=== PATIENT | female | born 1990 | race Caucasian/White ===

== ENCOUNTER 2016-12-08 23:25 | Emergency (ER) | payer OTHER, SELFPAY ==
[2016-12-08] MEDS ORDERED: CLEOCIN 150 MG CAPSULE PO ONE (23:50)
[2016-12-08] MEDS ORDERED: TORAdol 30 mg Injection IM ONE (23:50)
[2016-12-08] MEDS ORDERED: TORAdol 30 mg Injection ONE (23:56)
[2016-12-08] MEDS ORDERED: CLEOCIN 150 MG CAPSULE ONE (23:56)
--- NOTE | 2016-12-08 23:57 | ERPHSYRPT ---
- History of Present Illness Time Seen by Provider: 12/08/16 23:40 Source: patient Exam Limitations: no limitations Patient Subjective Stated Complaint: pt states she has dental pain on the lt lower jaw. states she left a msg for dentist. Triage Nursing Assessment: pt alert and oriented. answers questins approp. speech slurred. pt anxious and jittery with constant head and neck movements. respirations nonlabored with lungs cta. no swelling noted to lt jaw. broken molar noted to lt lower. Physician History: SINCE YESTERDAY PT HAS HAD A LEFT LOWER TOOTHACHE WITH SOME SHORTNESS OF AIR AND SWELLING IN THE THROAT TONIGHT;DENIES FEVER,CHEST PAIN, VOMITING. Allergies/Adverse Reactions: Penicillins Adverse Reaction (Mild, Verified 12/08/16 23:48) pt states she is not had problems with antibitics related to pcn as an adult Home Medications: Butalb/Acetaminophen/Caffeine [Kkmgpw-Giafqssc-Shhl 50-325-40] 1 each PO Q6HPRN PRN 12/08/16 [History] Omeprazole [Prilosec] 40 mg PO DAILY 12/08/16 [History] Hx Tetanus, Diphtheria Vaccination/Date Given: Yes Hx Influenza Vaccination/Date Given: No Hx Pneumococcal Vaccination/Date Given: No Immunizations Up to Date: Yes - Review of Systems Constitutional: No Fever Ears, Nose, & Throat: Throat Swelling, Other (TOOTHACHE) Respiratory: Dyspnea Cardiac: No Chest Pain Abdominal/Gastrointestinal: No Abdominal Pain, No Vomiting All Other Systems: Reviewed and Negative - Past Medical History Pertinent Past Medical History: Yes Neurological History: No Pertinent History ENT History: No Pertinent History Cardiac History: No Pertinent History Respiratory History: No Pertinent History Endocrine Medical History: No Pertinent History Musculoskeletal History: No Pertinent History GI Medical History: GERD, Gallbladder Disease, Other History: Other Psycho-Social History: Anxiety, Depression, Panic Disorder Female Reproductive Disorders: Endometriosis Other Medical History: abn pap smear, endometriosis r/o with laparoscopy , PID. being seen for chronic pelvic pain and to see gi drTess pt states she has had 3 head injuries and has appt to see a neurologist - Past Surgical History Past Surgical History: Yes Neuro Surgical History: No Pertinent History Cardiac: No Pertinent History Respiratory: No Pertinent History Gastrointestinal: Appendectomy, Cholecystectomy Genitourinary: No Pertinent History Musculoskeletal: No Pertinent History Female Surgical History: No Pertinent History Other Surgical History: exploratory laparoscopy per Dr Hidalgo 2015- negative - Social History Smoking Status: Current every day smoker How long have you smoked: 10 Exposure to second hand smoke: Yes Alcohol Use: Socially Drug Use: none Patient Lives Alone: No Significant Family History: no pertinent family hx - Female History Hx Last Menstrual Period: 3 weeks ago Hx Now: No - Nursing Vital Signs Nursing Vital Signs: Initial Vital Signs Temperature 97.7 F Temperature Source Oral Pulse Rate 109 Respiratory Rate 18 Blood Pressure 129/85 Pain Intensity 9 - Physical Exam General Appearance: alert, other (SLURRED SPEECH) Eye Exam: PERRL/EOMI Ears, Nose, Throat Exam: TMs normal, pharynx normal, moist mucous membranes, other (A CHIPPED LEFT MANDIBULAR MOLAR HAS MILDLY EDEMATOUS, TENDER AND ERYTHEMATOUS SURROUNDING GUM; NO PHARYNGEAL EDEMA AND NO HOARSENESS.) Neck Exam: normal inspection Respiratory Exam: normal breath sounds, lungs clear Cardiovascular Exam: normal heart sounds Gastrointestinal/Abdomen Exam: soft, normal bowel sounds Back Exam: normal range of motion Extremity Exam: normal inspection, No pedal edema Neurologic Exam: alert, cooperative Skin Exam: warm, dry SpO2 Interpretation: normal SpO2: 98 Oxygen Delivery: Room Air - Course Nursing assessment & vital signs reviewed: Yes Ordered Tests: Medication Summary Discontinued Medications Generic Name Dose Route Start Last Admin Trade Name Freq PRN Reason Stop Dose Admin Clindamycin HCl 300 mg 12/08/16 23:50 Cleocin 150 Mg Capsule PO 12/08/16 23:51 STAT ONE Ketorolac Tromethamine 60 mg 12/08/16 23:50 Toradol 30 Mg Injection IM 12/08/16 23:51 STAT ONE - Departure Time of Disposition: 00:01 Departure Disposition: Home Clinical Impression: LEFT MANDIBULAR MOLAR ABSCESS Condition: Fair Critical Care Time: No Instructions: Tooth Abscess Additional Instructions: FOLLOW UP WITH PRIVATE DENTIST TOMORROW. Prescriptions: Naproxen [Naprosyn] 500 mg PO Q12H PRN PRN #20 tablet PRN Reason: Pain Clindamycin HCl 300 mg PO Q6H #40 capsule
[2016-12-09 00:17] VITALS: BP 136/78; PULSE 105; O2SAT 97
== END 2016-12-09 00:25 | disposition home or self-care (01) ==
LOC: ED 23:25
DX: M27.2 Inflammatory conditions of jaws (principal)
CPT/HCPCS: 96372; 99283; J1885

== ENCOUNTER 2017-02-10 17:45 | Emergency (ER) | payer OTHER, SELFPAY ==
[2017-02-10] MEDS ORDERED: Sodium Chloride 0.9% 1000 ML 1,000 ML IV STA (18:12)
--- NOTE | 2017-02-10 18:16 | ERPHSYRPT ---
- History of Present Illness Source: patient Exam Limitations: no limitations Patient Subjective Stated Complaint: PT REPORTS FEVER OF 103.4 AT HOME-REPORTS VOMITING INTERMITTANT IN NATURE-DENEIS COUGH-DENIES CONGESTION OR SORE THROAT- DENIES DIFFICULTY WITH URINATION-DENIES PAIN Triage Nursing Assessment: PT PINK WARM ET DRY-A & O X 3-RESP EASY ET NONLAOBRED -ABD SOFT ET NONTENDER TO PALP Timing/Duration: day(s) (3-4 days) Severity: moderate Modifying Factors: Improves With: nothing Associated Symptoms: nausea, vomiting, fever, headaches, No abdominal pain, No shortness of breath, No heartburn, No diaphoresis, No cough, No chills, No chest pain, No loss of appetite, No malaise, No rash, No syncope, No seizure, No weakness Hx Tetanus, Diphtheria Vaccination/Date Given: Yes Hx Influenza Vaccination/Date Given: No Hx Pneumococcal Vaccination/Date Given: No Immunizations Up to Date: Yes <CHRISTOPHER DUENAS - Last Filed: 02/10/17 19:18> <MARTHA JAIN - Last Filed: 02/10/17 20:13> - History of Present Illness Time Seen by Provider: 02/10/17 18:09 Physician History: 26-year-old white female arrives with complaint of fever off and on nausea vomiting symptoms going on for 3-4 days she denies cough sore throats or abdominal pain she denies dysuria hematuria. Past medical history includes GERD, gallbladder disease, anxiety, depression, panic disorder, endometriosis, pelvic inflammatory disease, chronic pelvic pain. Past surgical history includes cholecystectomy exploratory laparotomy and appendectomy. (CHRISTOPHER DUENAS) Allergies/Adverse Reactions: Penicillins Adverse Reaction (Mild, Verified 02/10/17 17:53) pt states she is not had problems with antibitics related to pcn as an adult Home Medications: No Home Meds 1 ea MC UD 02/10/17 [History] - Review of Systems Constitutional: Fever, No Chills, No Fatigue, No Lethargy, No Malaise, No Night Sweats, No Weakness, No Weight Loss, No Other Eyes: No Symptoms, No Discharge, No Eye Pain, No Eye Redness, No Itchy, No Photophobia, No Tearing, No Vision Changes, No Double Vision, No Foreign Body Sensation Ears, Nose, & Throat: No Symptoms, No Ear Pain, No Ear Discharge, No Hearing Changes, No Tinnitus, No Nose Pain, No Nose Congestion, No Nose Discharge, No Sinus Drainage, No Epistaxis, No Mouth Pain, No Mouth Swelling, No Loose Teeth, No Throat Pain, No Throat Swelling, No Hoarse, No Painful Swallowing, No Snoring , No Stridor Respiratory: No Cough, No Dyspnea Cardiac: No Chest Pain, No Edema, No Syncope Abdominal/Gastrointestinal: Nausea, Vomiting, No Abdominal Pain, No Diarrhea, No Constipation, No Hematemesis, No Hematochezia, No Melena, No Dysphagia, No Appetite Changes Genitourinary Symptoms: No Dysuria Musculoskeletal: No Back Pain, No Neck Pain Skin: No Rash Neurological: No Dizziness, No Focal Weakness, No Sensory Changes Psychological: No Symptoms Endocrine: No Symptoms All Other Systems: Reviewed and Negative <CHRISTOPHER DUENAS - Last Filed: 02/10/17 19:18> - Past Medical History Pertinent Past Medical History: Yes Neurological History: No Pertinent History ENT History: No Pertinent History Cardiac History: No Pertinent History Respiratory History: No Pertinent History Endocrine Medical History: No Pertinent History Musculoskeletal History: No Pertinent History GI Medical History: GERD, Gallbladder Disease, Other History: Other Psycho-Social History: Anxiety, Depression, Panic Disorder Female Reproductive Disorders: Endometriosis Other Medical History: abn pap smear, endometriosis r/o with laparoscopy , PID. being seen for chronic pelvic pain and to see gi pt states she has had 3 head injuries and has appt to see a neurologist - Past Surgical History Past Surgical History: Yes Neuro Surgical History: No Pertinent History Cardiac: No Pertinent History Respiratory: No Pertinent History Gastrointestinal: Appendectomy, Cholecystectomy Genitourinary: No Pertinent History Musculoskeletal: No Pertinent History Female Surgical History: No Pertinent History Other Surgical History: exploratory laparoscopy per Dr Hidalgo 2014- negative - Social History Smoking Status: Current every day smoker How long have you smoked: 10 Exposure to second hand smoke: Yes Alcohol Use: Socially Drug Use: none Patient Lives Alone: No Significant Family History: no pertinent family hx - Female History Hx Last Menstrual Period: 2 WKS AGO Hx Now: No <CHRISTOPHER DUENAS - Last Filed: 02/10/17 19:18> - Physical Exam General Appearance: no apparent distress, alert, other (patient somewhat flushed in appearance) Eye Exam: PERRL/EOMI, eyes nml inspection Ears, Nose, Throat Exam: normal ENT inspection, TMs normal, pharynx normal, moist mucous membranes Neck Exam: normal inspection, non-tender, supple, full range of motion Respiratory Exam: normal breath sounds, lungs clear, No respiratory distress Cardiovascular Exam: regular rate/rhythm, normal heart sounds, normal peripheral pulses Gastrointestinal/Abdomen Exam: soft, normal bowel sounds, No tenderness, No mass Back Exam: normal inspection, normal range of motion, No CVA tenderness, No vertebral tenderness Extremity Exam: normal inspection, normal range of motion, pelvis stable Neurologic Exam: alert, oriented x 3, cooperative, normal mood/affect, nml cerebellar function, nml station & gait, sensation nml, No motor deficits Skin Exam: normal color, warm, dry, No rash Lymphatic Exam: No adenopathy SpO2 Interpretation: normal (100%) SpO2: 100 Oxygen Delivery: Room Air <CHRISTOPHER DUENAS - Last Filed: 02/10/17 19:18> - Progress Progress: improved <CHRISTOPHER DUENAS - Last Filed: 02/10/17 19:18> - Progress Progress: improved Counseled pt/family regarding: lab results, diagnosis <MARTHA JAIN - Last Filed: 02/10/17 20:13> - Progress Progress Note: 02/10/17 19:17 Dr. Jain will assume care of this patient secondary to shift change. Case has been discussed with Dr. Jain (CHRISTOPHER DUENAS) 02/10/17 19:31 Pt care discussed with Dr Almodovar and care accepted at 19:00. 02/10/17 20:10 Pt is feeling much better and wishes to go home. (MARTHA JAIN) <CHRISTOPHER DUENAS - Last Filed: 02/10/17 19:18> - Departure Time of Disposition: 20:10 Departure Disposition: Home Critical Care Time: No <MARTHA JAIN - Last Filed: 02/10/17 20:13> - Departure Clinical Impression: Vomiting, Dehydration Condition: Stable Referrals: DOCTOR,NO FAMILY [Primary Care Provider] - Additional Instructions: You had vomiting and dehydration. Take zofran 4 mg ODT every 6 hrs as needed. Start your diet with clear liquids and advance as tolerated. Follow up as needed. Prescriptions: Ondansetron [Zofran Odt] 4 mg PO Q6HPRN PRN #10 tab.rapdis PRN Reason: Nausea/Vomiting
[2017-02-10] MEDS ORDERED: Sodium Chloride 0.9% 1000 ML 1,000 ML ONE (18:18)
[2017-02-10] MEDS ORDERED: Zofran 4 MG/2 ML VIAL IV ONE (18:23)
[2017-02-10] MEDS ORDERED: Zofran 4 MG/2 ML VIAL ONE (18:24)
[2017-02-10 18:43] LABS: Collection Type CLEAN CATCH; Ph 5.5 (5-6)
[2017-02-10 18:44] LABS: Bacteria FEW /HPF (NEGATIVE); COMPLETE URINE MICROSCOPIC? YES; Epithelial Cells MODERATE /HPF (FEW); Mucus MODERATE /HPF (NEGATIVE)
[2017-02-10 19:08] LABS: BASOPHIL % 0.2 % (0.0-0.4); Eosinophil % 0.2 % (0.00-5.0); Granulocytes % 68.2 % (36.0-66.0); Lymphocytes % 25.2 % (24.0-44.0); Mean Cell Volume 97.4 fl (78-100); Mean Platelet Volume 10.7 fl (6-9.5); Monocytes % 6.2 % (0.0-12.0); Platelet Count 274 K/mm3 (150-450); Red Blood Count 3.52 M/mm3 (4.1-5.4); Red Cell Distribution Width 14.7 % (11.5-14.0)
[2017-02-10 19:30] LABS: Mean Corpuscular Hemoglobin 32.3 pg (26-32)
[2017-02-10 19:33] LABS: ALBUMIN 3.7 g/dL (3.4-5.0); ALKALINE PHOSPHATASE 60 U/L (46-116); ANION GAP 17.3 MEQ/L (5-15); BILIRUBIN,TOTAL 0.2 mg/dL (0.2-1.0); BLOOD UREA NITROGEN 9 mg/dL (9-20); CHLORIDE 109 mEq/L (98-107); Carbon Dioxide 21.2 mEq/L (21-32); Glucose 100 MG/DL (70-110); Potassium 3.3 mEq/L (3.5-5.1); SGOT/AST 22 U/L (15-37); SGPT/ALT 19 U/L (12-78); SODIUM 144 mEq/L (136-145); Total Protein 7.3 gm/dL (6.4-8.2)
[2017-02-10] MEDS ORDERED: Klor Con 10 MEQ PO ONE ×2 (19:53→19:58)
[2017-02-10 20:21] VITALS: BP 136/76; PULSE 84; O2SAT 96
== END 2017-02-10 20:21 | disposition home or self-care (01) ==
LOC: ED 17:45
DX: R11.10 Vomiting, unspecified (principal); E86.0 Dehydration; R50.9 Fever, unspecified
CPT/HCPCS: 36000; 36415; 80053; 81000; 84703; 85025; 87070; 87430; 96360; 96374; 99284; J2405; A9270-GY

== ENCOUNTER 2017-03-26 11:07 | Emergency (ER) | payer OTHER, SELFPAY ==
--- NOTE | 2017-03-26 11:48 | ERPHSYRPT ---
- History of Present Illness Time Seen by Provider: 03/26/17 11:44 Historian: patient Exam Limitations: no limitations Patient Subjective Stated Complaint: Pt states for the last 4 days she has been extremely bloated and has a knot/pain in her right groin. She states it is not getting any better and she has not been urinating as much as normal. Pt states she gets nauseous after eating. Triage Nursing Assessment: Pt alert and oriented x3. skin pink warm and dry. afebrile. bowel sounds hypoactive x4. abdomen soft and bloated. pain with palpation in the right groin Physician History: Pt. with periumbilical abdominal pain for past 4 days. States pain stabbing, constant, non-radiating similar to previous. States LMP 1 week ago. Denies any vaginal bleeding or discharge. Lying in hot bath improves pain, standing worsens pain. 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 States also with abdominal bloating and nausea, but no vomiting or diarrhea. Denies frequency, dysuria, hesitancy, fever or chills. Timing/Duration: day(s) (4), constant, gradual onset Activities at Onset: none Quality: sharpness, stabbing Abdominal Pain Onset Location: RLQ Pain Radiation: no radiation Severity of Pain-Max: moderate Severity of Pain-Current: moderate Modifying Factors: Improves With: analgesics (Motrin/Tylenol), lying down ( improves). Worsens With: vomiting Associated Symptoms: loss of appetite, nausea, No chest pain, No diaphoresis, No fever/chills, No vomiting, No weakness Previous symptoms: same symptoms as today Allergies/Adverse Reactions: Penicillins Adverse Reaction (Mild, Verified 03/26/17 11:15) pt states she is not had problems with antibitics related to pcn as an adult Home Medications: Acetaminophen 325 mg [Tylenol 325 mg] 325 mg PO Q4-6HPRN PRN 03/26/17 [ History] Ibuprofen 200 mg [Motrin 200 mg] 800 mg PO Q4-6HPRN PRN 03/26/17 [History] Hx Tetanus, Diphtheria Vaccination/Date Given: (unknown) Hx Influenza Vaccination/Date Given: No Hx Pneumococcal Vaccination/Date Given: No - Review of Systems Constitutional: No Fever, No Chills Eyes: No Symptoms Ears, Nose, & Throat: No Symptoms Respiratory: No Cough, No Dyspnea Cardiac: No Chest Pain, No Edema, No Syncope Abdominal/Gastrointestinal: Abdominal Pain, Nausea, No Vomiting, No Diarrhea Genitourinary Symptoms: No Dysuria, No Frequency, No Vaginal Bleeding, No Vaginal Discharge Musculoskeletal: No Back Pain, No Neck Pain Skin: No Rash Neurological: No Dizziness, No Focal Weakness, No Sensory Changes Psychological: No Symptoms Endocrine: No Symptoms All Other Systems: Reviewed and Negative - Past Medical History Pertinent Past Medical History: Yes Neurological History: No Pertinent History ENT History: No Pertinent History Cardiac History: No Pertinent History Respiratory History: No Pertinent History Endocrine Medical History: No Pertinent History Musculoskeletal History: No Pertinent History GI Medical History: GERD, Gallbladder Disease, Other History: Other (Endometriosis) Psycho-Social History: Anxiety, Depression, Panic Disorder Female Reproductive Disorders: Endometriosis Other Medical History: abn pap smear, endometriosis r/o with laparoscopy , PID. being seen for chronic pelvic pain and to see gi pt states she has had 3 head injuries and has appt to see a neurologist - Past Surgical History Past Surgical History: Yes Neuro Surgical History: No Pertinent History Cardiac: No Pertinent History Respiratory: No Pertinent History Gastrointestinal: Appendectomy, Cholecystectomy Genitourinary: No Pertinent History Musculoskeletal: No Pertinent History Female Surgical History: No Pertinent History Other Surgical History: exploratory laparoscopy per Dr Hidalgo 2014- negative - Social History Smoking Status: Current every day smoker How long have you smoked: 10 Exposure to second hand smoke: Yes Alcohol Use: Socially Drug Use: none Patient Lives Alone: No Significant Family History: no pertinent family hx - Female History Hx Last Menstrual Period: 03/19/2017 Hx Now: No - Nursing Vital Signs Nursing Vital Signs: Initial Vital Signs Temperature 97.8 F Temperature Source Oral Pulse Rate 78 Respiratory Rate 18 Blood Pressure [Right Arm] 118/60 Pain Intensity 5 - Physical Exam General Appearance: no apparent distress, alert Eye Exam: PERRL/EOMI, eyes nml inspection Ears, Nose, Throat Exam: normal ENT inspection, pharynx normal, moist mucous membranes Neck Exam: normal inspection, non-tender, supple, full range of motion Respiratory Exam: normal breath sounds, lungs clear, No respiratory distress Cardiovascular Exam: regular rate/rhythm, normal heart sounds Gastrointestinal/Abdomen Exam: soft, tenderness (RLQ), distention, No mass, No ecchymosis, No pulsatile mass, No rebound Rectal Exam: deferred Back Exam: normal inspection, normal range of motion, No CVA tenderness, No vertebral tenderness Extremity Exam: normal inspection, normal range of motion, pelvis stable Neurologic Exam: alert, oriented x 3, cooperative, normal mood/affect, nml cerebellar function, sensation nml, No motor deficits Skin Exam: normal color, warm, dry - Radiology Ultrasound Exam Pelvis Ultrasound: tele radiology report, negative, No Mass, Other (No ovarian cysts or any other abnormalities seen) Ordered Tests: Active Orders 24 hr Category Date Time Status IV Insertion STAT Care 03/26/17 11:54 Active PELVIC [US] Stat Exams 03/26/17 12:27 Completed AMYLASE Stat Lab 03/26/17 12:36 Completed CBC W DIFF Stat Lab 03/26/17 12:25 Completed CMP Stat Lab 03/26/17 12:36 Completed HCG,QUALITATIVE URINE Stat Lab 03/26/17 12:12 Completed UA Stat Lab 03/26/17 12:36 Completed Urine Triage Profile Stat Lab 03/26/17 12:36 Completed Wet Prep Stat Lab 03/26/17 12:36 Completed Medication Summary Discontinued Medications Generic Name Dose Route Start Last Admin Trade Name Freq PRN Reason Stop Dose Admin Ketorolac Tromethamine 30 mg 03/26/17 11:54 03/26/17 12:32 Toradol 30 Mg Injection IV 03/26/17 11:55 30 mg STAT ONE Administration Ketorolac Tromethamine Confirm 03/26/17 12:31 Toradol 30 Mg Injection Administered 03/26/17 12:32 Dose 30 mg .ROUTE .STK-MED ONE Promethazine HCl 12.5 mg 03/26/17 11:54 03/26/17 12:32 Phenergan 25 Mg Inj IV 03/26/17 11:55 12.5 mg STAT ONE Administration Promethazine HCl Confirm 03/26/17 12:31 Phenergan 25 Mg Inj Administered 03/26/17 12:32 Dose 25 mg .ROUTE .STK-MED ONE Lab/Rad Data: Laboratory Result Diagrams 03/26/17 12:25 03/26/17 12:36 Laboratory Results 03/26/17 03/26/17 03/26/17 Range/Units 12:36 12:36 12:36 WBC (4.0-10.5) K/mm3 RBC (4.1-5.4) M/mm3 Hgb (12.0-16.0) gm/dl Hct (35-47) % MCV (78-100) fl MCH (26-32) pg MCHC (32-36) g/dl RDW (11.5-14.0) % Plt Count (150-450) K/mm3 MPV (6-9.5) fl Gran % (36.0-66.0) % Lymphocytes % (24.0-44.0) % Monocytes % (0.0-12.0) % Eosinophils % (0.00-5.0) % Basophils % (0.0-0.4) % Basophils # (0-0.4) Sodium 139 (136-145) mEq/L Potassium 3.8 (3.5-5.1) mEq/L Chloride 104 (98-107) mEq/L Carbon Dioxide 21.1 (21-32) mEq/L Anion Gap 17.8 H (5-15) MEQ/L BUN 11 (9-20) mg/dL Creatinine 0.68 (0.55-1.30) mg/dl Estimated GFR > 60 ML/MIN Glucose 96 (70-110) MG/DL Calcium 9.0 (8.5-10.1) mg/dL Total Bilirubin 0.2 (0.2-1.0) mg/dL AST 20 (15-37) U/L ALT 18 (12-78) U/L Alkaline Phosphatase 73 (46-116) U/L Serum Total Protein 7.8 (6.4-8.2) gm/dL Albumin 3.9 (3.4-5.0) g/dL Amylase 72 (25-115) U/L Ur Collection Type CLEAN CATCH Urine Color YELLOW (YELLOW) Urine Appearance CLEAR (CLEAR) Urine pH 6.0 (5-6) Ur Specific [place] 1.020 (1.005-1.025) Urine Protein NEGATIVE (Negative) Urine Glucose (UA) NEGATIVE (NEGATIVE) mg/dL Urine Ketones NEGATIVE (NEGATIVE) Urine Nitrite NEGATIVE (NEGATIVE) Urine Bilirubin NEGATIVE (NEGATIVE) Urine Urobilinogen 0.2 (0-1) mg/dL Urine WBC (Auto) NEGATIVE (NEGATIVE) Urine RBC (Auto) NEGATIVE (0-5) [place]/ul Urine HCG, Qual (Negative) WBC (Wet Prep) Few RBC (Wet Prep) Few Epi Cells (Wet Prep) Moderate Bacteria (Wet Prep) Moderate Clue Cells (Wet Prep) Rare Trichomonas (Wet Prep) None Seen Budding Yeast (Wet Prp) None Seen Urine Opiates Level NEG. (NEGATIVE) Ur Methadone NEG. (NEGATIVE) Urine Barbiturates NEG. (NEGATIVE) Ur Phencyclidine (PCP) NEG. (NEGATIVE) Urine Amphetamine NEG. (NEGATIVE) U Benzodiazepine Level POS. (NEGATIVE) Urine Cocaine NEG. (NEGATIVE) Urine Marijuana (THC) NEG. (NEGATIVE) Specimen Received [id number] 03/26/17 03/26/17 Range/Units 12:25 12:12 WBC 7.1 (4.0-10.5) K/mm3 RBC 3.84 L (4.1-5.4) M/mm3 Hgb 12.5 (12.0-16.0) gm/dl Hct 38.3 (35-47) % MCV 99.7 (78-100) fl MCH 32.5 H (26-32) pg MCHC 32.6 (32-36) g/dl RDW 14.5 H (11.5-14.0) % Plt Count 210 (150-450) K/mm3 MPV 11.2 H (6-9.5) fl Gran % 47.5 (36.0-66.0) % Lymphocytes % 43.6 (24.0-44.0) % Monocytes % 7.8 (0.0-12.0) % Eosinophils % 0.7 (0.00-5.0) % Basophils % 0.4 (0.0-0.4) % Basophils # 0.03 (0-0.4) Sodium (136-145) mEq/L Potassium (3.5-5.1) mEq/L Chloride (98-107) mEq/L Carbon Dioxide (21-32) mEq/L Anion Gap (5-15) MEQ/L BUN (9-20) mg/dL Creatinine (0.55-1.30) mg/dl Estimated GFR ML/MIN Glucose (70-110) MG/DL Calcium (8.5-10.1) mg/dL Total Bilirubin (0.2-1.0) mg/dL AST (15-37) U/L ALT (12-78) U/L Alkaline Phosphatase (46-116) U/L Serum Total Protein (6.4-8.2) gm/dL Albumin (3.4-5.0) g/dL Amylase (25-115) U/L Ur Collection Type Urine Color (YELLOW) Urine Appearance (CLEAR) Urine pH (5-6) Ur Specific [place] (1.005-1.025) Urine Protein (Negative) Urine Glucose (UA) (NEGATIVE) mg/dL Urine Ketones (NEGATIVE) Urine Nitrite (NEGATIVE) Urine Bilirubin (NEGATIVE) Urine Urobilinogen (0-1) mg/dL Urine WBC (Auto) (NEGATIVE) Urine RBC (Auto) (0-5) [place]/ul Urine HCG, Qual NEGATIVE (Negative) WBC (Wet Prep) RBC (Wet Prep) Epi Cells (Wet Prep) Bacteria (Wet Prep) Clue Cells (Wet Prep) Trichomonas (Wet Prep) Budding Yeast (Wet Prp) Urine Opiates Level (NEGATIVE) Ur Methadone (NEGATIVE) Urine Barbiturates (NEGATIVE) Ur Phencyclidine (PCP) (NEGATIVE) Urine Amphetamine (NEGATIVE) U Benzodiazepine Level (NEGATIVE) Urine Cocaine (NEGATIVE) Urine Marijuana (THC) (NEGATIVE) Specimen Received - Progress Progress: improved Progress Note: 03/26/17 13:52 patient given Toradol and antiemetic. She does appear to be feeling better. Counseled pt/family regarding: lab results, diagnosis, rad results - Departure Time of Disposition: 13:52 Departure Disposition: Home, Extended Care Facility Clinical Impression: Abdominal pain Condition: Stable Critical Care Time: No Instructions: Abdominal Pain-Adult Additional Instructions: Motrin 800mg every 8 hrs with food for pain Return for worse abdominal pain,fever, vomiting, dizziness or any problems
[2017-03-26] MEDS ORDERED: Phenergan 25 MG INJ IV ONE (11:54)
[2017-03-26] MEDS ORDERED: TORAdol 30 mg Injection IV ONE (11:54)
[2017-03-26 12:25] LABS: BASOPHIL % 0.4 % (0.0-0.4); Eosinophil % 0.7 % (0.00-5.0); Granulocytes % 47.5 % (36.0-66.0); Lymphocytes % 43.6 % (24.0-44.0); Mean Cell Volume 99.7 fl (78-100); Mean Platelet Volume 11.2 fl (6-9.5); Monocytes % 7.8 % (0.0-12.0); Platelet Count 210 K/mm3 (150-450); Red Blood Count 3.84 M/mm3 (4.1-5.4); Red Cell Distribution Width 14.5 % (11.5-14.0); White Blood Count 7.1 K/mm3 (4.0-10.5)
[2017-03-26 12:27] LABS: Mean Corpuscular Hemoglobin 32.5 pg (26-32)
[2017-03-26] MEDS ORDERED: TORAdol 30 mg Injection ONE (12:31)
[2017-03-26] MEDS ORDERED: Phenergan 25 MG INJ ONE (12:31)
[2017-03-26 12:38] LABS: COMPLETE URINE MICROSCOPIC? NO; Collection Type CLEAN CATCH
[2017-03-26 12:46] LABS: ALBUMIN 3.9 g/dL (3.4-5.0); ALKALINE PHOSPHATASE 73 U/L (46-116); ANION GAP 17.8 MEQ/L (5-15); BILIRUBIN,TOTAL 0.2 mg/dL (0.2-1.0); BLOOD UREA NITROGEN 11 mg/dL (9-20); CHLORIDE 104 mEq/L (98-107); Carbon Dioxide 21.1 mEq/L (21-32); Glucose 96 MG/DL (70-110); Potassium 3.8 mEq/L (3.5-5.1); SGOT/AST 20 U/L (15-37); SGPT/ALT 18 U/L (12-78); SODIUM 139 mEq/L (136-145); Total Protein 7.8 gm/dL (6.4-8.2)
[2017-03-26 12:47] LABS: Bacteria Moderate; Clue Cells Rare
[2017-03-26 12:48] LABS: Trichomonas None Seen
[2017-03-26 12:49] LABS: Yeast None Seen
[2017-03-26 12:57] VITALS: O2SAT 100
--- NOTE | 2017-03-26 13:20 | XRAY ---
Indication: Pain. Two-dimensional transabdominal pelvic sonogram was performed. Comparison: May 16, 2015. Uterus again anteverted today measuring 6.7 x 2.3 x 3.6 cm. No focal solid/cystic mass. Endometrial stripe measures 7.8 mm. No endometrial cavity mass or fluid collection. Right ovary measures 2.5 x 1.2 x 2.5 cm and the left measures 2.4 x 1.2 x 2.1 cm. No suspicious adnexal mass or free fluid. Impression: Stable negative pelvic sonogram.
[2017-03-26 14:03] VITALS: BP 117/60; PULSE 76
[2017-03-26 14:05] LABS: CHLAMYDIA DNA NEGATIVE
== END 2017-03-26 14:03 | disposition home or self-care (01) ==
LOC: ED 11:07
DX: R10.31 Right lower quadrant pain (principal); R10.9 Unspecified abdominal pain; N89.8 Other specified noninflammatory disorders of vagina; R11.0 Nausea
CPT/HCPCS: 36000; 36415; 76856; 80053; 80307; 81002; 82150; 84703; 85025; 87210; 87490; 87590; 96374; 96375; 99284; J1885; J2550

== ENCOUNTER 2018-03-10 21:53 | Emergency (ER) | payer OTHER, SELFPAY ==
[2018-03-10] MEDS ORDERED: Nitrostat 0.4 MG (ED) SL ONE ×2 (22:05→22:11)
[2018-03-10] MEDS ORDERED: Sodium Chloride 0.9% 1000 ML 1,000 ML IV STA (22:05)
[2018-03-10] MEDS ORDERED: LOPRESSOR 5 MG/5 ML INJECTION IV ONE ×2 (22:09→22:29)
[2018-03-10] MEDS ORDERED: Sodium Chloride 0.9% 1000 ML 1,000 ML ONE (22:11)
--- NOTE | 2018-03-10 22:30 | ERPHSYRPT ---
- History of Present Illness Time Seen by Provider: 03/10/18 22:10 Historian: patient Exam Limitations: clinical condition Patient Subjective Stated Complaint: feeling funny x 2 days.. CP today since noon today. evevated BP tightness in chest going into left neck. Triage Nursing Assessment: anxious and slightly SOB with CP since noon today.. staes has been feeling funny x 2 days. states tightness. denies productive cough. pain goes into left jaw. denies fever. Physician History: PATIENT WITH A HISTORY OF ENDOMETRIOSIS, COMPLAINS OF INCREASING CHEST TIGHTNESS SINCE NOON ASSOCIATED WITH SHARP TIGHTNESS, RADIATES TO LEFT SIDE OF JAW, OCCASIONAL COUGH. STATES BLOOD PRESSURE ELEVATED TODAY. DENIES DIAPHORESIS AND PALPITATIONS, FEVER OR CHILLS. Timing/Duration: today Activities at Onset: activity Quality: sharpness, tightness Location: substernal Chest Pain Radiation: jaw Severity of Pain-Max: moderate Severity of Pain-Current: moderate Modifying Factors: Improves With: breathing, change in position Associated Symptoms: cough, hurts to breathe Prior Chest Pain/Cardiac Workup: no prior chest pain Nitro Today/Relief: 0.4 mg x 2, provided by ED Aspirin Treatment Today: 325 mg x 1, provided at home Allergies/Adverse Reactions: Penicillins Adverse Reaction (Mild, Verified 03/10/18 22:16) pt states she is not had problems with antibitics related to pcn as an adult Home Medications: Acetaminophen 325 mg [Tylenol 325 mg] 325 mg PO Q4-6HPRN PRN 03/26/17 [ History] Ibuprofen 200 mg [Motrin 200 mg] 800 mg PO Q4-6HPRN PRN 03/26/17 [History] Hx Tetanus, Diphtheria Vaccination/Date Given: (unknown) Hx Influenza Vaccination/Date Given: No Hx Pneumococcal Vaccination/Date Given: No - Review of Systems Constitutional: No Fever, No Chills Eyes: No Symptoms Ears, Nose, & Throat: No Symptoms Respiratory: Cough, No Dyspnea Cardiac: Chest Pain, No Edema, No Syncope Abdominal/Gastrointestinal: No Symptoms, No Abdominal Pain, No Nausea, No Vomiting, No Diarrhea Genitourinary Symptoms: No Symptoms, No Dysuria Musculoskeletal: No Symptoms, No Back Pain, No Neck Pain Skin: No Rash Neurological: No Dizziness, No Focal Weakness, No Sensory Changes Psychological: No Symptoms Endocrine: No Symptoms Hematologic/Lymphatic: No Symptoms All Other Systems: Reviewed and Negative - Past Medical History Pertinent Past Medical History: Yes Neurological History: No Pertinent History ENT History: No Pertinent History Cardiac History: No Pertinent History Respiratory History: No Pertinent History Endocrine Medical History: No Pertinent History Musculoskeletal History: No Pertinent History GI Medical History: GERD, Gallbladder Disease, Other History: Other Psycho-Social History: Anxiety, Depression, Panic Disorder Female Reproductive Disorders: Endometriosis Other Medical History: abn pap smear, endometriosis r/o with laparoscopy , PID. being seen for chronic pelvic pain and to see gi pt states she has had 3 head injuries and has appt to see a neurologist - Past Surgical History Past Surgical History: Yes Neuro Surgical History: No Pertinent History Cardiac: No Pertinent History Respiratory: No Pertinent History Gastrointestinal: Appendectomy, Cholecystectomy Genitourinary: No Pertinent History Musculoskeletal: No Pertinent History Female Surgical History: No Pertinent History Other Surgical History: exploratory laparoscopy per Dr Hidalgo 2014- negative - Social History Smoking Status: Current every day smoker How long have you smoked: 10 Exposure to second hand smoke: No Alcohol Use: Socially Drug Use: none Patient Lives Alone: No Significant Family History: no pertinent family hx - Female History Hx Now: (UNKNOWN) - Nursing Vital Signs Nursing Vital Signs: Initial Vital Signs Pulse Rate 99 H 03/10/18 21:55 Respiratory Rate 20 03/10/18 21:55 Blood Pressure 178/122 03/10/18 21:55 O2 Sat by Pulse Oximetry 99 03/10/18 21:55 Pain Scale Pain Intensity 5 - Physical Exam General Appearance: anxiety Eye Exam: PERRL/EOMI, eyes nml inspection Ears, Nose, Throat Exam: normal ENT inspection, moist mucous membranes Neck Exam: normal inspection, non-tender, supple, full range of motion Respiratory Exam: normal breath sounds, chest tenderness (PARASTERNAL CHEST WALL TENDERNESS T-2 TO T-4), lungs clear, No respiratory distress Cardiovascular Exam: regular rate/rhythm, normal heart sounds, tachycardia Gastrointestinal/Abdomen Exam: soft, normal bowel sounds, other (NONTENDER), No tenderness, No mass Back Exam: normal inspection, No CVA tenderness, No vertebral tenderness Extremity Exam: normal inspection, normal range of motion Neurologic Exam: alert, oriented x 3, cooperative, normal mood/affect, sensation nml, No motor deficits Skin Exam: normal color, warm, dry SpO2 Interpretation: normal SpO2: 99 Oxygen Delivery: Room Air - Course EKG Interpreted by Me: RATE, Sinus Rhythm, Sinus Tach, NORMAL AXIS - Radiology Exams Chest X-ray Interpretation: Interpreted by me, No Infiltrates (FLAT DIAPHRAMS, HYPERINFLATION) Ordered Tests: Active Orders 24 hr Category Date Time Status Clean Catch Urine Specimen STAT Care 03/10/18 22:05 Active EKG-ER Only STAT Care 03/10/18 22:10 Active IV Insertion STAT Care 03/10/18 22:10 Active Oxygen-ED Only NASAL CANNULA 2 lpm Care 03/10/18 22:05 Active CHEST 1 VIEW (PORTABLE) Stat Exams 03/10/18 22:06 Taken CBC W DIFF Stat Lab 03/10/18 22:20 Completed CMP Stat Lab 03/10/18 22:20 Completed D-DIMER QUANTITATION Stat Lab 03/10/18 22:20 Completed HCG,QUALITATIVE URINE Stat Lab 03/10/18 22:40 Completed PROTIME WITH INR Stat Lab 03/10/18 22:20 Completed TROPONIN Q3H Lab 03/10/18 22:20 Completed TROPONIN Q3H Lab 03/11/18 01:15 Ordered TROPONIN Q3H Lab 03/11/18 04:15 Ordered TROPONIN Q3H Lab 03/11/18 07:15 Ordered TROPONIN Q3H Lab 03/11/18 10:15 Ordered Urine Triage Profile Stat Lab 03/10/18 22:40 Completed Medication Summary Generic Name Dose Route Start Last Admin Trade Name Freq PRN Reason Stop Dose Admin Sodium Chloride 1,000 mls @ 500 mls/hr 03/10/18 22:05 03/10/18 22:26 Sodium Chloride 0.9% 1000 Ml IV 03/11/18 00:04 500 mls/hr .Q2H STA Administration Discontinued Medications Generic Name Dose Route Start Last Admin Trade Name Freq PRN Reason Stop Dose Admin Fentanyl Citrate 50 mcg 03/10/18 22:31 03/10/18 22:49 Sublimaze 100 Mcg/2 Ml IV 03/10/18 22:32 50 mcg STAT ONE Administration Fentanyl Citrate Confirm 03/10/18 22:48 Sublimaze 100 Mcg/2 Ml Administered 03/10/18 22:49 Dose 100 mcg .ROUTE .STK-MED ONE Sodium Chloride Confirm 03/10/18 22:11 Sodium Chloride 0.9% 1000 Ml Administered 03/10/18 22:12 Dose 1,000 mls @ ud .ROUTE .STK-MED ONE Metoprolol Tartrate 5 mg 03/10/18 22:09 03/10/18 22:29 Lopressor 5 Mg/5 Ml Injection IV 03/10/18 22:10 5 mg STAT ONE Administration Metoprolol Tartrate Confirm 03/10/18 22:29 Lopressor 5 Mg/5 Ml Injection Administered 03/10/18 22:30 Dose 5 mg IV .STK-MED ONE Nitroglycerin 0.4 mg 03/10/18 22:05 03/10/18 22:25 Nitrostat 0.4 Mg (Ed) SL 03/10/18 22:06 0.4 mg STAT ONE Administration Nitroglycerin Confirm 03/10/18 22:11 Nitrostat 0.4 Mg (Ed) Administered 03/10/18 22:12 Dose 0.4 mg SL .STK-MED ONE Lab/Rad Data: Laboratory Result Diagrams 03/10/18 22:20 03/10/18 22:20 Laboratory Results 03/10/18 03/10/18 03/10/18 Range/Units 22:40 22:40 22:20 WBC (4.0-10.5) K/mm3 RBC (4.1-5.4) M/mm3 Hgb (12.0-16.0) gm/dl Hct (35-47) % MCV (78-100) fl MCH (26-32) pg MCHC (32-36) g/dl RDW (11.5-14.0) % Plt Count (150-450) K/mm3 MPV (6-9.5) fl Gran % (36.0-66.0) % Eos # (Auto) (0-0.5) Absolute Lymphs (auto) (1.0-4.6) Absolute Monos (auto) (0.0-1.3) Lymphocytes % (24.0-44.0) % Monocytes % (0.0-12.0) % Eosinophils % (0.00-5.0) % Basophils % (0.0-0.4) % Absolute Granulocytes (1.4-6.9) Basophils # (0-0.4) PT (9.95-12.35) SECONDS INR (0.8-3.0) D-Dimer (215-500) ng/mL Sodium (137-145) mmol/L Potassium (3.5-5.1) mmol/L Chloride (98-107) mmol/L Carbon Dioxide (22-30) mmol/L Anion Gap (5-15) MEQ/L BUN (7-17) mg/dL Creatinine (0.52-1.04) mg/dL Estimated GFR ML/MIN Glucose (74-106) mg/dL Calcium (8.4-10.2) mg/dL Total Bilirubin (0.2-1.3) mg/dL AST (14-36) U/L ALT (0-35) U/L Alkaline Phosphatase (38-126) U/L Troponin I < 0.012 (0.000-0.034) ng/mL Serum Total Protein (6.3-8.2) g/dL Albumin (3.5-5.0) g/dL Urine HCG, Qual NEGATIVE (Negative) Urine Opiates Level NEGATIVE (NEGATIVE) Ur Methadone NEGATIVE (NEGATIVE) Urine Barbiturates NEGATIVE (NEGATIVE) Ur Phencyclidine (PCP) NEGATIVE (NEGATIVE) Urine Amphetamine NEGATIVE (NEGATIVE) U Benzodiazepine Level NEGATIVE (NEGATIVE) Urine Cocaine NEGATIVE (NEGATIVE) Urine Marijuana (THC) NEGATIVE (NEGATIVE) 03/10/18 03/10/18 03/10/18 Range/Units 22:20 22:20 22:20 WBC 9.5 (4.0-10.5) K/mm3 RBC 4.33 (4.1-5.4) M/mm3 Hgb 13.8 (12.0-16.0) gm/dl Hct 42.0 (35-47) % MCV 97.0 (78-100) fl MCH 31.9 (26-32) pg MCHC 32.9 (32-36) g/dl RDW 13.2 (11.5-14.0) % Plt Count 213 (150-450) K/mm3 MPV 11.4 H (6-9.5) fl Gran % 63.1 (36.0-66.0) % Eos # (Auto) 0.10 (0-0.5) Absolute Lymphs (auto) 2.76 (1.0-4.6) Absolute Monos (auto) 0.64 (0.0-1.3) Lymphocytes % 29.0 (24.0-44.0) % Monocytes % 6.7 (0.0-12.0) % Eosinophils % 1.1 (0.00-5.0) % Basophils % 0.1 (0.0-0.4) % Absolute Granulocytes 6.00 (1.4-6.9) Basophils # 0.01 (0-0.4) PT 10.4 (9.95-12.35) SECONDS INR 0.94 (0.8-3.0) D-Dimer < 215 L (215-500) ng/mL Sodium 142 (137-145) mmol/L Potassium 3.7 (3.5-5.1) mmol/L Chloride 104 (98-107) mmol/L Carbon Dioxide 26 (22-30) mmol/L Anion Gap 16.1 H (5-15) MEQ/L BUN 10 (7-17) mg/dL Creatinine 0.71 (0.52-1.04) mg/dL Estimated GFR > 60.0 ML/MIN Glucose 110 H (74-106) mg/dL Calcium 10.0 (8.4-10.2) mg/dL Total Bilirubin 0.30 (0.2-1.3) mg/dL AST 23 (14-36) U/L ALT 21 (0-35) U/L Alkaline Phosphatase 91 (38-126) U/L Troponin I (0.000-0.034) ng/mL Serum Total Protein 8.2 (6.3-8.2) g/dL Albumin 4.6 (3.5-5.0) g/dL Urine HCG, Qual (Negative) Urine Opiates Level (NEGATIVE) Ur Methadone (NEGATIVE) Urine Barbiturates (NEGATIVE) Ur Phencyclidine (PCP) (NEGATIVE) Urine Amphetamine (NEGATIVE) U Benzodiazepine Level (NEGATIVE) Urine Cocaine (NEGATIVE) Urine Marijuana (THC) (NEGATIVE) - Progress Progress: improved Progress Note: 03/10/18 23:26 ADMINISTERED NITRO 0.4MG SL, LOPRESSOR 5MG FOR TACHYCARDIA, IV NORMAL SALINE 500ML/HR, FENTANYL 50MCG IV Counseled pt/family regarding: lab results, diagnosis, need for follow-up, rad results - Departure Time of Disposition: 23:35 Departure Disposition: Home Clinical Impression: HYPERTENSION, ACUTE CHEST WALL PAIN Condition: Stable Critical Care Time: No Referrals: DEDE ALLEN [Primary Care Provider] - Additional Instructions: BEGIN LISINOPRIL 5MG DAILY FOR 30 DAYS. TORADOL 5MG EVERY 6 HOURS NEEDED FOR PAIN. CONSULT YOUR PRIMARY CARE PROVIDER FOR FOLLOWUP. CHECK YOUR BLOOD PRESSURE WHILE AT WORK. RETURN TO EMERGENCY ROOM FOR INCREASING PAIN OR ELEVATED BLOOD PRESSURE. Prescriptions: Ketorolac Tromethamine [Toradol] 10 mg PO Q6H PRN PRN #20 tablet PRN Reason: Pain Lisinopril 5 mg [Zestril 5 MG] 5 mg PO DAILY #50 tablet
[2018-03-10] MEDS ORDERED: SUBLIMAZE 100 MCG/2 ML IV ONE (22:31)
[2018-03-10 22:32] LABS: BASOPHIL % 0.1 % (0.0-0.4); Basophil (Absolute #) 0.01 (0-0.4); Eosinophil % 1.1 % (0.00-5.0); Granulocytes % 63.1 % (36.0-66.0); Hemoglobin 13.8 gm/dl (12.0-16.0); Lymphocyte (Absolute #) 2.76 (1.0-4.6); Mean Corpuscular Hemoglobin 31.9 pg (26-32); Mean Corpuscular Hgb Concent. 32.9 g/dl (32-36); Mean Platelet Volume 11.4 fl (6-9.5); Monocyte (Absolute #) 0.64 (0.0-1.3); Monocytes % 6.7 % (0.0-12.0); Platelet Count 213 K/mm3 (150-450); Red Blood Count 4.33 M/mm3 (4.1-5.4); Red Cell Distribution Width 13.2 % (11.5-14.0); White Blood Count 9.5 K/mm3 (4.0-10.5)
[2018-03-10 22:48] LABS: INR 0.94 (0.8-3.0)
[2018-03-10] MEDS ORDERED: SUBLIMAZE 100 MCG/2 ML ONE (22:48)
[2018-03-10 22:51] LABS: ALBUMIN 4.6 g/dL (3.5-5.0); ALKALINE PHOSPHATASE 91 U/L (38-126); ANION GAP 16.1 MEQ/L (5-15); BLOOD UREA NITROGEN 10 mg/dL (7-17); CHLORIDE 104 mmol/L (98-107); Carbon Dioxide 26 mmol/L (22-30); Creatinine 1 0.71 mg/dL (0.52-1.04); Glucose 110 mg/dL (74-106); Potassium 3.7 mmol/L (3.5-5.1); SGOT/AST 23 U/L (14-36); SGPT/ALT 21 U/L (0-35); SODIUM 142 mmol/L (137-145); Total Protein 8.2 g/dL (6.3-8.2)
[2018-03-10 22:56] LABS: D-DIMER QUANTITATION < 215 ng/mL (215-500)
[2018-03-10 23:01] LABS: Amphetamine,Urine NEGATIVE (NEGATIVE); Barbiturate,Urine NEGATIVE (NEGATIVE); Benzodiazepine,Urine NEGATIVE (NEGATIVE); Cocaine,Urine NEGATIVE (NEGATIVE); Methadone,Urine NEGATIVE (NEGATIVE); Opiate,Urine NEGATIVE (NEGATIVE); PCP,Urine NEGATIVE (NEGATIVE); THC,Urine NEGATIVE (NEGATIVE)
[2018-03-10] MEDS ORDERED: Zestril 10 MG PO STA (23:25)
[2018-03-10 23:57] VITALS: BP 132/72; PULSE 81; O2SAT 92
--- NOTE | 2018-03-11 09:03 | XRAY ---
Indication: Chest pain. Comparison: September 16, 2016. Portable chest again demonstrates normal heart, lungs, and bony thorax with a few incidental calcified granulomas.
== END 2018-03-11 00:15 | disposition home or self-care (01) ==
LOC: ED 21:53
DX: I10 Essential (primary) hypertension (principal); R07.89 Other chest pain; Z72.0 Tobacco use
CPT/HCPCS: 36000; 36415; 71045; 80053; 80307; 84484; 84703; 85025; 85379; 85610; 93005; 96360; 96361; 96374; 96375; 99284; J3010; A9270-GY

== ENCOUNTER 2018-07-20 07:59 | Emergency (ER) | payer OTHER ==
--- NOTE | 2018-07-20 08:17 | ERPHSYRPT ---
- History of Present Illness Time Seen by Provider: 07/20/18 08:05 Historian: patient Exam Limitations: no limitations Physician History: 28 y/o white female recently dx with htn, presents with central substernal cp described as "like a hammer" without radiation. pt took tylenol. pt was at rest when pain began this am at 0300. pt has no cardiac dz hx. pt has had a cholecystectomy Timing/Duration: today, hour(s) (5) Activities at Onset: rest Quality: pressure Location: substernal, central Chest Pain Radiation: no radiation Severity of Pain-Max: moderate Severity of Pain-Current: moderate Modifying Factors: Improves With: nothing Associated Symptoms: No nausea, No vomiting, No palpitations, No heartburn, No abdominal pain, No shortness of breath, No cough, No headache, No dizziness Prior Chest Pain/Cardiac Workup: no prior chest pain Nitro Today/Relief: no nitro taken today Aspirin Treatment Today: no aspirin today Allergies/Adverse Reactions: Penicillins Adverse Reaction (Mild, Verified 07/20/18 08:16) pt states she is not had problems with antibitics related to pcn as an adult Home Medications: ALPRAZolam [Alprazolam] 0.5 mg PO Q8H PRN PRN 07/20/18 [History] Acetaminophen [Tylenol Extra Strength] 1,000 mg PO Q4-6HPRN PRN 07/20/18 [ History] Amlodipine Besylate 5 mg [Norvasc 5 mg] 5 mg PO DAILY 07/20/18 [History] Aspirin [Maxmie Chewable] 81 mg PO DAILY 07/20/18 [History] Lisinopril 5 mg [Zestril 5 MG] 20 mg PO BID 07/20/18 [History] Metoprolol Succinate 100 mg [Toprol Xl 100 MG] 100 mg PO BID 07/20/18 [ History] Hx Tetanus, Diphtheria Vaccination/Date Given: (unknown) Hx Influenza Vaccination/Date Given: No Hx Pneumococcal Vaccination/Date Given: No - Review of Systems Constitutional: No Symptoms, No Fever Eyes: No Symptoms, No Discharge, No Eye Pain Ears, Nose, & Throat: No Symptoms, No Ear Pain Respiratory: No Symptoms, No Cough, No Dyspnea, No Stridor, No Wheezing Cardiac: Chest Pain, No Palpitations, No Syncope Abdominal/Gastrointestinal: No Symptoms, No Abdominal Pain, No Nausea, No Vomiting, No Diarrhea Genitourinary Symptoms: No Symptoms, No Dysuria, No Frequency, No Hematuria Musculoskeletal: No Symptoms, No Back Pain, No Deformity, No Fall, No Injury Skin: No Symptoms Neurological: Headache, No Dizziness, No Gait Changes Psychological: No Symptoms Endocrine: No Symptoms Hematologic/Lymphatic: No Symptoms Immunological/Allergic: No Symptoms All Other Systems: Reviewed and Negative - Past Medical History Pertinent Past Medical History: Yes Neurological History: No Pertinent History ENT History: No Pertinent History Cardiac History: No Pertinent History Respiratory History: No Pertinent History Endocrine Medical History: No Pertinent History Musculoskeletal History: No Pertinent History GI Medical History: GERD, Gallbladder Disease, Other History: Other Psycho-Social History: Anxiety, Depression, Panic Disorder Female Reproductive Disorders: Endometriosis Other Medical History: abn pap smear, endometriosis r/o with laparoscopy , PID. being seen for chronic pelvic pain and to see gi drTess pt states she has had 3 head injuries and has appt to see a neurologist - Past Surgical History Past Surgical History: Yes Neuro Surgical History: No Pertinent History Cardiac: No Pertinent History Respiratory: No Pertinent History Gastrointestinal: Appendectomy, Cholecystectomy Genitourinary: No Pertinent History Musculoskeletal: No Pertinent History Female Surgical History: No Pertinent History Other Surgical History: exploratory laparoscopy per Dr Hidalgo 2014- negative - Social History Smoking Status: Current every day smoker How long have you smoked: 10 Exposure to second hand smoke: No Alcohol Use: Socially Drug Use: none Patient Lives Alone: No Significant Family History: no pertinent family hx - Nursing Vital Signs Nursing Vital Signs: Initial Vital Signs Pulse Rate 86 07/20/18 08:07 Respiratory Rate 20 07/20/18 08:07 Blood Pressure 195/126 07/20/18 08:07 O2 Sat by Pulse Oximetry 98 07/20/18 08:07 Pain Scale Pain Intensity 7 - Physical Exam General Appearance: mild distress, alert, anxiety Eye Exam: PERRL/EOMI, eyes nml inspection Ears, Nose, Throat Exam: normal ENT inspection, TMs normal Neck Exam: normal inspection, non-tender, supple, full range of motion, No limited range of motion, No midline tenderness Respiratory Exam: normal breath sounds, chest tenderness, lungs clear, airway intact, No respiratory distress, No accessory muscle use, No wheezing, No stridor Cardiovascular Exam: regular rate/rhythm, normal heart sounds, normal peripheral pulses Gastrointestinal/Abdomen Exam: soft, normal bowel sounds, No tenderness, No guarding, No rebound Pelvic Exam: not done Rectal Exam: not done Back Exam: normal inspection, normal range of motion, No CVA tenderness, No vertebral tenderness Extremity Exam: normal inspection, normal range of motion, pelvis stable Neurologic Exam: alert, oriented x 3, cooperative, distribution manager II-XII nml as tested Skin Exam: normal color, warm, dry Lymphatic Exam: No adenopathy SpO2 Interpretation: normal Oxygen Delivery: Room Air - Course Nursing assessment & vital signs reviewed: Yes EKG Interpreted by Me: RATE (82), Sinus Rhythm, NORMAL AXIS, NORMAL INTERVALS, NORMAL QRS, NORMAL ST-T (no changes compared to ekg 05/02/18 ) Ordered Tests: Active Orders 24 hr Category Date Time Status [employer] STAT Care 07/20/18 08:21 Active EKG-ER Only STAT Care 07/20/18 08:20 Active IV Insertion STAT Care 07/20/18 08:20 Active CHEST 1 VIEW (PORTABLE) Stat Exams 07/20/18 08:20 Completed CBC W DIFF Stat Lab 07/20/18 08:10 Completed CMP Stat Lab 07/20/18 08:10 Completed D-DIMER QUANTITATION Stat Lab 07/20/18 08:10 Completed NT PRO BNP Stat Lab 07/20/18 08:10 Completed PROTIME WITH INR Stat Lab 07/20/18 08:10 Completed TROPONIN Q3H Lab 07/20/18 08:10 Completed TROPONIN Q3H Lab 07/20/18 11:35 Completed TROPONIN Q3H Lab 07/20/18 14:30 Ordered TROPONIN Q3H Lab 07/20/18 17:30 Ordered TROPONIN Q3H Lab 07/20/18 20:30 Ordered Medication Summary Discontinued Medications Generic Name Dose Route Start Last Admin Trade Name Freq PRN Reason Stop Dose Admin Aspirin 324 mg 07/20/18 08:20 07/20/18 08:24 Baby Aspirin 81 Mg Chew PO 07/20/18 08:21 324 mg STAT ONE Administration Aspirin Confirm 07/20/18 08:26 Baby Aspirin 81 Mg Chew Administered 07/20/18 08:27 Dose 324 mg .ROUTE .STK-MED ONE Lorazepam 1 mg 07/20/18 09:10 07/20/18 09:18 Ativan 2 Mg/1 Ml Vial IV 07/20/18 09:11 1 mg STAT ONE Administration Lorazepam Confirm 07/20/18 09:14 Ativan 2 Mg/1 Ml Vial Administered 07/20/18 09:15 Dose 2 mg .ROUTE .STK-MED ONE Metoprolol Tartrate 2.5 mg 07/20/18 09:09 07/20/18 09:29 Lopressor 5 Mg/5 Ml Injection IV 07/20/18 09:10 Not Given STAT ONE Metoprolol Tartrate Confirm 07/20/18 09:13 Lopressor 5 Mg/5 Ml Injection Administered 07/20/18 09:14 Dose 5 mg IV .STK-MED ONE Morphine Sulfate 2 mg 07/20/18 08:20 07/20/18 08:27 Morphine Sulfate 2 Mg Inj IV 07/20/18 08:21 2 mg STAT ONE Administration Morphine Sulfate Confirm 07/20/18 08:26 Morphine Sulfate 2 Mg Inj Administered 07/20/18 08:27 Dose 2 mg .ROUTE .STK-MED ONE Morphine Sulfate 2 mg 07/20/18 10:48 07/20/18 10:51 Morphine Sulfate 2 Mg Inj IV 07/20/18 10:49 2 mg STAT ONE Administration Morphine Sulfate Confirm 07/20/18 10:50 Morphine Sulfate 2 Mg Inj Administered 07/20/18 10:51 Dose 2 mg .ROUTE .STK-MED ONE Nitroglycerin 0.4 mg 07/20/18 08:20 07/20/18 08:24 Nitrostat 0.4 Mg (Ed) SL 07/20/18 08:21 0.4 mg STAT ONE Administration Nitroglycerin Confirm 07/20/18 08:26 Nitrostat 0.4 Mg (Ed) Administered 07/20/18 08:27 Dose 0.4 mg SL .STK-MED ONE Lab/Rad Data: Laboratory Result Diagrams 07/20/18 08:10 07/20/18 08:10 Laboratory Results 07/20/18 07/20/18 07/20/18 Range/Units 11:35 08:10 08:10 WBC (4.0-10.5) K/mm3 RBC (4.1-5.4) M/mm3 Hgb (12.0-16.0) gm/dl Hct (35-47) % MCV (78-100) fl MCH (26-32) pg MCHC (32-36) g/dl RDW (11.5-14.0) % Plt Count (150-450) K/mm3 MPV (6-9.5) fl Gran % (36.0-66.0) % Eos # (Auto) (0-0.5) Absolute Lymphs (auto) (1.0-4.6) Absolute Monos (auto) (0.0-1.3) Lymphocytes % (24.0-44.0) % Monocytes % (0.0-12.0) % Eosinophils % (0.00-5.0) % Basophils % (0.0-0.4) % Absolute Granulocytes (1.4-6.9) Basophils # (0-0.4) PT 10.7 (9.95-12.35) SECONDS INR 0.92 (0.8-3.0) D-Dimer < 215 L (215-500) ng/mL Sodium (137-145) mmol/L Potassium (3.5-5.1) mmol/L Chloride (98-107) mmol/L Carbon Dioxide (22-30) mmol/L Anion Gap (5-15) MEQ/L BUN (7-17) mg/dL Creatinine (0.52-1.04) mg/dL Estimated GFR ML/MIN Glucose (74-106) mg/dL Calcium (8.4-10.2) mg/dL Total Bilirubin (0.2-1.3) mg/dL AST (14-36) U/L ALT (0-35) U/L Alkaline Phosphatase (38-126) U/L Troponin I < 0.012 < 0.012 (0.000-0.034) ng/mL NT-Pro-B Natriuret Pep (0-450) pg/mL Serum Total Protein (6.3-8.2) g/dL Albumin (3.5-5.0) g/dL 07/20/18 07/20/18 Range/Units 08:10 08:10 WBC 9.8 (4.0-10.5) K/mm3 RBC 4.57 (4.1-5.4) M/mm3 Hgb 14.9 (12.0-16.0) gm/dl Hct 44.2 (35-47) % MCV 96.7 (78-100) fl MCH 32.6 H (26-32) pg MCHC 33.7 (32-36) g/dl RDW 13.3 (11.5-14.0) % Plt Count 210 (150-450) K/mm3 MPV 13.4 H (6-9.5) fl Gran % 64.0 (36.0-66.0) % Eos # (Auto) 0.14 (0-0.5) Absolute Lymphs (auto) 2.74 (1.0-4.6) Absolute Monos (auto) 0.61 (0.0-1.3) Lymphocytes % 28.1 (24.0-44.0) % Monocytes % 6.3 (0.0-12.0) % Eosinophils % 1.4 (0.00-5.0) % Basophils % 0.2 (0.0-0.4) % Absolute Granulocytes 6.24 (1.4-6.9) Basophils # 0.02 (0-0.4) PT (9.95-12.35) SECONDS INR (0.8-3.0) D-Dimer (215-500) ng/mL Sodium 142 (137-145) mmol/L Potassium 4.4 (3.5-5.1) mmol/L Chloride 106 (98-107) mmol/L Carbon Dioxide 23 (22-30) mmol/L Anion Gap 17.0 H (5-15) MEQ/L BUN 8 (7-17) mg/dL Creatinine 0.57 (0.52-1.04) mg/dL Estimated GFR > 60.0 ML/MIN Glucose 108 H (74-106) mg/dL Calcium 10.1 (8.4-10.2) mg/dL Total Bilirubin 0.50 (0.2-1.3) mg/dL AST 35 (14-36) U/L ALT 48 H (0-35) U/L Alkaline Phosphatase 93 (38-126) U/L Troponin I (0.000-0.034) ng/mL NT-Pro-B Natriuret Pep 213 (0-450) pg/mL Serum Total Protein 8.4 H (6.3-8.2) g/dL Albumin 4.9 (3.5-5.0) g/dL - Progress Progress: improved, re-examined Air Movement: good Progress Note: 07/20/18 12:14 pts cxr without acute process. pts cp nearly completely resolved. Blood Culture(s) Obtained: No Antibiotics given: No Counseled pt/family regarding: lab results, diagnosis, need for follow-up, rad results - Departure Time of Disposition: 12:15 Departure Disposition: Home Clinical Impression: Chest pain in adult, Anxiety Condition: Stable Critical Care Time: No Referrals: TAMELA KHAN [Primary Care Provider] - Additional Instructions: follow up with primary doctor for further management. continue your medications as prescribed.
[2018-07-20] MEDS ORDERED: Nitrostat 0.4 MG (ED) SL ONE ×2 (08:20→08:26)
[2018-07-20] MEDS ORDERED: MORPHINE SULFATE 2 MG INJ IV ONE ×2 (08:20→10:48)
[2018-07-20] MEDS ORDERED: BABY ASPIRIN 81 MG CHEW PO ONE (08:20)
[2018-07-20] MEDS ORDERED: BABY ASPIRIN 81 MG CHEW ONE (08:26)
[2018-07-20] MEDS ORDERED: MORPHINE SULFATE 2 MG INJ ONE ×2 (08:26→10:50)
[2018-07-20 08:46] LABS: BASOPHIL % 0.2 % (0.0-0.4); Basophil (Absolute #) 0.02 (0-0.4); Eosinophil % 1.4 % (0.00-5.0); Eosinophil (Absolute #) 0.14 (0-0.5); Granulocyte Absolute (ANC) 6.24 (1.4-6.9); Hematocrit 44.2 % (35-47); Hemoglobin 14.9 gm/dl (12.0-16.0); Lymphocyte (Absolute #) 2.74 (1.0-4.6); Lymphocytes % 28.1 % (24.0-44.0); Mean Cell Volume 96.7 fl (78-100); Mean Corpuscular Hemoglobin 32.6 pg (26-32); Mean Corpuscular Hgb Concent. 33.7 g/dl (32-36); Mean Platelet Volume 13.4 fl (6-9.5); Monocyte (Absolute #) 0.61 (0.0-1.3); Monocytes % 6.3 % (0.0-12.0); Platelet Count 210 K/mm3 (150-450); Red Blood Count 4.57 M/mm3 (4.1-5.4); Red Cell Distribution Width 13.3 % (11.5-14.0); White Blood Count 9.8 K/mm3 (4.0-10.5)
[2018-07-20] MEDS ORDERED: Ativan 2 MG/1 ML VIAL IV ONE (09:10)
[2018-07-20] MEDS ORDERED: LOPRESSOR 5 MG/5 ML INJECTION IV ONE (09:13)
[2018-07-20] MEDS ORDERED: Ativan 2 MG/1 ML VIAL ONE (09:14)
[2018-07-20] MEDS: LOPRESSOR 5 MG/5 ML INJECTION IV ONE ×2 (09:17→09:29)
--- NOTE | 2018-07-20 09:20 | XRAY ---
Indication: Chest pain and short of breath. High blood pressure. Comparison: May 02, 2018. Portable chest again demonstrates normal heart, lungs, and bony thorax with incidental left base calcified granuloma. No new/acute findings.
[2018-07-20 09:34] LABS: INR 0.92 (0.8-3.0)
[2018-07-20 09:37] LABS: D-DIMER QUANTITATION < 215 ng/mL (215-500)
[2018-07-20 09:47] LABS: ALBUMIN 4.9 g/dL (3.5-5.0); ALKALINE PHOSPHATASE 93 U/L (38-126); BLOOD UREA NITROGEN 8 mg/dL (7-17); CHLORIDE 106 mmol/L (98-107); Calcium 10.1 mg/dL (8.4-10.2); Carbon Dioxide 23 mmol/L (22-30); Creatinine 1 0.57 mg/dL (0.52-1.04); Glucose 108 mg/dL (74-106); NT PRO BNP 213 pg/mL (0-450); Potassium 4.4 mmol/L (3.5-5.1); SGOT/AST 35 U/L (14-36); SGPT/ALT 48 U/L (0-35); SODIUM 142 mmol/L (137-145); Total Protein 8.4 g/dL (6.3-8.2)
[2018-07-20 12:05] VITALS: BP 138/88; PULSE 70; O2SAT 95
== END 2018-07-20 12:40 | disposition home or self-care (01) ==
LOC: ED 07:59
DX: R07.9 Chest pain, unspecified (principal); F41.9 Anxiety disorder, unspecified; I10 Essential (primary) hypertension
CPT/HCPCS: 36415; 71045; 80053; 83880; 84484; 85025; 85379; 85610; 93005; 93041; 96374; 96375; 96376; 99284; J2060; J2270; A9270-GY

== ENCOUNTER 2018-10-10 11:28 | Emergency (ER) | payer OTHER ==
[2018-10-10] MEDS ORDERED: TORAdol 30 mg Injection IV ONE (11:47)
[2018-10-10] MEDS ORDERED: Sodium Chloride 0.9% 1000 ML 1,000 ML IV STA (11:47)
[2018-10-10] MEDS ORDERED: Sodium Chloride 0.9% 1000 ML 1,000 ML ONE (11:53)
[2018-10-10] MEDS ORDERED: Zofran 4 MG/2 ML VIAL ONE (11:53)
[2018-10-10] MEDS ORDERED: TORAdol 30 mg Injection ONE (11:53)
--- NOTE | 2018-10-10 11:55 | ERPHSYRPT ---
- History of Present Illness Time Seen by Provider: 10/10/18 11:43 Historian: patient Exam Limitations: no limitations Physician History: 28-year-old white female with history of GERD, gallbladder disease, anxiety, depression, panic disorder, endometriosis, chronic pelvic pain, PID, several head injuries. Arrives with complaint of right flank pain symptoms for a week positive dysuria Patient has been seen by Dr. Tan she apparently had a KUB which shows showed a possible 13 mm right mid renal calculus She had a CT of the abdomen and pelvis the next day (October 07, 2018) Which read out as to nonobstructing right renal micro-calculi, it was felt that the 13 mm right mid renal calculus was probably artifactual due to summation shadow 6/fecal debris. Patient apparently had been on oxycodone/acetaminophen No. 20 which were prescribed 10/06/2018 She was also on tramadol if the milligrams #30 prescribed October 07, 2018. She continues to complain of pain in the right flank. Past medical history GERD, gallbladder disease, anxiety, depression, panic disorder, endometriosis, chronic pelvic pain, PID, several head injuries Past surgical history includes appendectomy, cholecystectomy, exploratory laparotomy Timing/Duration: week(s) (right flank pain for a week) Activities at Onset: none Quality: aching Abdominal Pain Onset Location: flank (Right flank) Pain Radiation: no radiation Severity of Pain-Max: moderate Severity of Pain-Current: moderate Associated Symptoms: back (right flank pain), other (dysuria), No chest pain, No diaphoresis, No diarrhea, No fever/chills, No fatigue, No headache, No heartburn, No loss of appetite, No nausea, No neck pain, No rash, No shortness of breath, No syncope, No vomiting, No weakness Previous symptoms: recently seen (patient seen by Dr. Tan for the same CT results as noted above) Allergies/Adverse Reactions: Penicillins Adverse Reaction (Mild, Verified 10/10/18 11:42) pt states she is not had problems with antibitics related to pcn as an adult Home Medications: ALPRAZolam [Alprazolam] 0.5 mg PO Q8H PRN PRN 07/20/18 [History] Acetaminophen [Tylenol Extra Strength] 1,000 mg PO Q4-6HPRN PRN 07/20/18 [ History] Lisinopril 5 mg [Zestril 5 MG] 20 mg PO BID 07/20/18 [History] Metoprolol Succinate 100 mg [Toprol Xl 100 MG] 100 mg PO BID 07/20/18 [ History] Oxycodone / APAP 10/325 mg [Oxycodone-Acetaminophen 10-325] 1 tab TID [History] Topiramate 25 mg DAILY 10/10/18 [History] Tramadol HCl 50 mg [Ultram 50 mg] 1 tab TID 10/10/18 [History] Hx Tetanus, Diphtheria Vaccination/Date Given: (unknown) Hx Influenza Vaccination/Date Given: No Hx Pneumococcal Vaccination/Date Given: No - Review of Systems Constitutional: No Fever, No Chills Eyes: No Symptoms Ears, Nose, & Throat: No Symptoms Respiratory: No Cough, No Dyspnea Cardiac: No Chest Pain, No Edema, No Syncope Abdominal/Gastrointestinal: Nausea, Vomiting, No Abdominal Pain, No Diarrhea, No Constipation, No Hematemesis, No Hematochezia, No Melena, No Dysphagia, No Appetite Changes Genitourinary Symptoms: Dysuria, Flank Pain (Right flank pain), No Frequency, No Hematuria, No Hesitancy, No Incontinence, No Urgency, No Urinary Retention, No Menorrhagia, No , No Vaginal Bleeding, No Vaginal Discharge Musculoskeletal: No Back Pain, No Neck Pain Skin: No Rash Neurological: No Dizziness, No Focal Weakness, No Sensory Changes Psychological: No Symptoms Endocrine: No Symptoms All Other Systems: Reviewed and Negative - Past Medical History Pertinent Past Medical History: Yes Neurological History: No Pertinent History ENT History: No Pertinent History Cardiac History: No Pertinent History Respiratory History: No Pertinent History Endocrine Medical History: No Pertinent History Musculoskeletal History: No Pertinent History GI Medical History: GERD, Gallbladder Disease, Other History: Other Psycho-Social History: Anxiety, Depression, Panic Disorder Female Reproductive Disorders: Endometriosis Other Medical History: abn pap smear, endometriosis r/o with laparoscopy , PID. being seen for chronic pelvic pain and to see gi pt states she has had 3 head injuries and has appt to see a neurologist - Past Surgical History Past Surgical History: Yes Neuro Surgical History: No Pertinent History Cardiac: No Pertinent History Respiratory: No Pertinent History Gastrointestinal: Appendectomy, Cholecystectomy Genitourinary: No Pertinent History Musculoskeletal: No Pertinent History Female Surgical History: No Pertinent History Other Surgical History: exploratory laparoscopy per Dr Hidalgo 2014- negative - Social History Smoking Status: Current every day smoker How long have you smoked: 10 Exposure to second hand smoke: No Alcohol Use: Socially Drug Use: none Patient Lives Alone: No Significant Family History: no pertinent family hx - Nursing Vital Signs Nursing Vital Signs: Initial Vital Signs Temperature 97.7 F 10/10/18 11:46 Pulse Rate 110 H 10/10/18 11:46 Respiratory Rate 18 10/10/18 11:46 Blood Pressure 137/69 10/10/18 11:46 O2 Sat by Pulse Oximetry 98 10/10/18 11:46 Pain Scale Pain Intensity 7 - Physical Exam General Appearance: mild distress Eye Exam: PERRL/EOMI, eyes nml inspection Ears, Nose, Throat Exam: normal ENT inspection, pharynx normal, moist mucous membranes Neck Exam: normal inspection, non-tender, supple, full range of motion Respiratory Exam: normal breath sounds, lungs clear, No respiratory distress Cardiovascular Exam: regular rate/rhythm, normal heart sounds Gastrointestinal/Abdomen Exam: soft, No tenderness, No mass Back Exam: CVA tenderness (right flank tenderness) Extremity Exam: normal inspection, normal range of motion, pelvis stable Neurologic Exam: alert, oriented x 3, cooperative, 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 as tested, normal mood/affect, nml cerebellar function, sensation nml, No motor deficits Skin Exam: normal color, warm, dry SpO2 Interpretation: normal (99%), borderline oxygenation - Course Nursing assessment & vital signs reviewed: Yes EKG Interpreted by Me: RATE (82 bpm), Sinus Rhythm, NORMAL AXIS, Other (EKG: Sinus rhythm, 82 bpm, normal axis, no acute ST or T wave changes noted) Ordered Tests: Active Orders 24 hr Category Date Time Status IV Insertion STAT Care 10/10/18 11:47 Active AMYLASE Stat Lab 10/10/18 12:00 Completed CBC W DIFF Stat Lab 10/10/18 12:00 Completed CMP Stat Lab 10/10/18 12:00 Completed HCG QUALITATIVE,SERUM Stat Lab 10/10/18 12:00 Completed LIPASE Stat Lab 10/10/18 12:00 Completed UA W/RFX UR CULTURE Stat Lab 10/10/18 14:15 Completed Medication Summary Discontinued Medications Generic Name Dose Route Start Last Admin Trade Name Lazaro PRN Reason Stop Dose Admin Sodium Chloride 1,000 mls @ 999 mls/hr 10/10/18 11:47 10/10/18 12:00 Sodium Chloride 0.9% 1000 Ml IV 10/10/18 12:47 999 mls/hr .Q1H1M STA Administration Sodium Chloride Confirm 10/10/18 11:53 Sodium Chloride 0.9% 1000 Ml Administered 10/10/18 11:54 Dose 1,000 mls @ ud .ROUTE .STK-MED ONE Ketorolac Tromethamine 30 mg 10/10/18 11:47 10/10/18 12:01 Toradol 30 Mg Injection IV 10/10/18 11:48 30 mg STAT ONE Administration Ketorolac Tromethamine Confirm 10/10/18 11:53 Toradol 30 Mg Injection Administered 10/10/18 11:54 Dose 30 mg .ROUTE .STK-MED ONE Ondansetron HCl Confirm 10/10/18 11:53 Zofran 4 Mg/2 Ml Vial Administered 10/10/18 11:54 Dose 4 mg .ROUTE .STK-MED ONE Promethazine HCl 12.5 mg 10/10/18 11:56 10/10/18 12:01 Phenergan 25 Mg Inj IV 10/10/18 11:57 12.5 mg STAT ONE Administration Promethazine HCl Confirm 10/10/18 11:58 Phenergan 25 Mg Inj Administered 10/10/18 11:59 Dose 25 mg .ROUTE .STK-MED ONE Lab/Rad Data: Laboratory Result Diagrams 10/10/18 12:00 10/10/18 12:00 Laboratory Results 10/10/18 10/10/18 10/10/18 Range/Units 14:15 12:00 12:00 WBC (4.0-10.5) K/mm3 RBC (4.1-5.4) M/mm3 Hgb (12.0-16.0) gm/dl Hct (35-47) % MCV (78-100) fl MCH (26-32) pg MCHC (32-36) g/dl RDW (11.5-14.0) % Plt Count (150-450) K/mm3 MPV (6-9.5) fl Gran % (36.0-66.0) % Eos # (Auto) (0-0.5) Absolute Lymphs (auto) (1.0-4.6) Absolute Monos (auto) (0.0-1.3) Lymphocytes % (24.0-44.0) % Monocytes % (0.0-12.0) % Eosinophils % (0.00-5.0) % Basophils % (0.0-0.4) % Absolute Granulocytes (1.4-6.9) Basophils # (0-0.4) Sodium 137 (137-145) mmol/L Potassium 4.2 (3.5-5.1) mmol/L Chloride 103 (98-107) mmol/L Carbon Dioxide 22 (22-30) mmol/L Anion Gap 15.7 H (5-15) MEQ/L BUN 10 (7-17) mg/dL Creatinine 0.50 L (0.52-1.04) mg/dL Estimated GFR > 60.0 ML/MIN Glucose 118 H (74-106) mg/dL Calcium 9.7 (8.4-10.2) mg/dL Total Bilirubin 0.70 (0.2-1.3) mg/dL AST 41 H (14-36) U/L ALT 33 (0-35) U/L Alkaline Phosphatase 106 (38-126) U/L Serum Total Protein 8.4 H (6.3-8.2) g/dL Albumin 4.9 (3.5-5.0) g/dL Amylase 81 (30-110) U/L Lipase 44 (23-300) U/L Serum , Qual NEGATIVE (Negative) Urine Color STRAW (YELLOW) Urine Appearance CLEAR (CLEAR) Urine pH 7.0 (5-6) Ur Specific [place] 1.002 (1.005-1.025) Urine Protein NEGATIVE (Negative) Urine Ketones NEGATIVE (NEGATIVE) Urine Blood NEGATIVE (0-5) [place]/ul Urine Nitrite NEGATIVE (NEGATIVE) Urine Bilirubin NEGATIVE (NEGATIVE) Urine Urobilinogen NEGATIVE (0-1) mg/dL Ur Leukocyte Esterase NEGATIVE (NEGATIVE) Urine WBC (Auto) NONE SEEN (0-5) /HPF Urine RBC (Auto) NONE (0-2) /HPF Urine Bacteria (Auto) NONE SEEN (NEGATIVE) /HPF Urine Culture Reflexed NO (NO) Urine Glucose NEGATIVE (NEGATIVE) mg/dL 10/10/18 Range/Units 12:00 WBC 10.7 H (4.0-10.5) K/mm3 RBC 4.15 (4.1-5.4) M/mm3 Hgb 13.3 (12.0-16.0) gm/dl Hct 40.9 (35-47) % MCV 98.6 (78-100) fl MCH 32.0 (26-32) pg MCHC 32.5 (32-36) g/dl RDW 13.5 (11.5-14.0) % Plt Count 232 (150-450) K/mm3 MPV 11.4 H (6-9.5) fl Gran % 74.8 H (36.0-66.0) % Eos # (Auto) 0.09 (0-0.5) Absolute Lymphs (auto) 2.10 (1.0-4.6) Absolute Monos (auto) 0.50 (0.0-1.3) Lymphocytes % 19.6 L (24.0-44.0) % Monocytes % 4.7 (0.0-12.0) % Eosinophils % 0.8 (0.00-5.0) % Basophils % 0.1 (0.0-0.4) % Absolute Granulocytes 7.99 H (1.4-6.9) Basophils # 0.01 (0-0.4) Sodium (137-145) mmol/L Potassium (3.5-5.1) mmol/L Chloride (98-107) mmol/L Carbon Dioxide (22-30) mmol/L Anion Gap (5-15) MEQ/L BUN (7-17) mg/dL Creatinine (0.52-1.04) mg/dL Estimated GFR ML/MIN Glucose (74-106) mg/dL Calcium (8.4-10.2) mg/dL Total Bilirubin (0.2-1.3) mg/dL AST (14-36) U/L ALT (0-35) U/L Alkaline Phosphatase (38-126) U/L Serum Total Protein (6.3-8.2) g/dL Albumin (3.5-5.0) g/dL Amylase (30-110) U/L Lipase (23-300) U/L Serum , Qual (Negative) Urine Color (YELLOW) Urine Appearance (CLEAR) Urine pH (5-6) Ur Specific [place] (1.005-1.025) Urine Protein (Negative) Urine Ketones (NEGATIVE) Urine Blood (0-5) [place]/ul Urine Nitrite (NEGATIVE) Urine Bilirubin (NEGATIVE) Urine Urobilinogen (0-1) mg/dL Ur Leukocyte Esterase (NEGATIVE) Urine WBC (Auto) (0-5) /HPF Urine RBC (Auto) (0-2) /HPF Urine Bacteria (Auto) (NEGATIVE) /HPF Urine Culture Reflexed (NO) Urine Glucose (NEGATIVE) mg/dL - Progress Progress: improved Progress Note: 10/10/18 14:57 Patient markedly improved after IV normal saline 1 L at 30 mg of Toradol. Patient's urinalysis CBC CMP hCG all normal./ Patient with a CT of the abdomen and pelvis done 3 days ago which shows showed 2 nonobstructing right renal micro-calculi, the CT stated that the possible 13 mm calculus seen on KUB the day earlier was probably artifact secondary to summation of shadows/fecal debris. Patient does have tramadol at home for pain she feels like it is not controlling her pain she states she cannot take the Percocet she was given shortly prior to this. Will have patient return home take Advil [id number] 2-3 tablets every 6 hours for up to 5 days, continue tramadol as prescribed by her family doctor. Drink plenty of fluids and follow-up with Dr. Tan. She is to return for acute distress or for severe symptoms. Will give patient today and tomorrow off work so that she may hydrate and rest. - Departure Time of Disposition: 14:59 Departure Disposition: Home Clinical Impression: Right flank pain Condition: Fair Critical Care Time: No Referrals: TAMELA TAN [Primary Care Provider] - Additional Instructions: Return home, plenty of fluids. Tramadol as prescribed by Dr. Tan. Advil [id number] 2-3 tablets every 6 hours as needed for up to 5 days. Follow-up with Dr. Tan. Return for acute distress or for severe symptoms.
[2018-10-10] MEDS ORDERED: Phenergan 25 MG INJ IV ONE (11:56)
[2018-10-10] MEDS ORDERED: Phenergan 25 MG INJ ONE (11:58)
[2018-10-10 12:10] LABS: BASOPHIL % 0.1 % (0.0-0.4); Basophil (Absolute #) 0.01 (0-0.4); Eosinophil % 0.8 % (0.00-5.0); Eosinophil (Absolute #) 0.09 (0-0.5); Granulocyte Absolute (ANC) 7.99 (1.4-6.9); Granulocytes % 74.8 % (36.0-66.0); Hematocrit 40.9 % (35-47); Hemoglobin 13.3 gm/dl (12.0-16.0); Lymphocytes % 19.6 % (24.0-44.0); Mean Cell Volume 98.6 fl (78-100); Mean Corpuscular Hgb Concent. 32.5 g/dl (32-36); Mean Platelet Volume 11.4 fl (6-9.5); Monocytes % 4.7 % (0.0-12.0); Platelet Count 232 K/mm3 (150-450); Red Blood Count 4.15 M/mm3 (4.1-5.4); Red Cell Distribution Width 13.5 % (11.5-14.0); White Blood Count 10.7 K/mm3 (4.0-10.5)
[2018-10-10 12:49] LABS: ALBUMIN 4.9 g/dL (3.5-5.0); ALKALINE PHOSPHATASE 106 U/L (38-126); AMYLASE 81 U/L (30-110); ANION GAP 15.7 MEQ/L (5-15); BLOOD UREA NITROGEN 10 mg/dL (7-17); CHLORIDE 103 mmol/L (98-107); Calcium 9.7 mg/dL (8.4-10.2); Carbon Dioxide 22 mmol/L (22-30); Glucose 118 mg/dL (74-106); LIPASE 44 U/L (23-300); SGPT/ALT 33 U/L (0-35); SODIUM 137 mmol/L (137-145); Total Protein 8.4 g/dL (6.3-8.2)
[2018-10-10 12:50] LABS: Potassium 4.2 mmol/L (3.5-5.1)
[2018-10-10 12:51] LABS: SGOT/AST 41 U/L (14-36)
[2018-10-10 14:41] LABS: Appearance CLEAR (CLEAR); Bilirubin NEGATIVE (NEGATIVE); Blood NEGATIVE Ery/ul (0-5); Glucose NEGATIVE (NEGATIVE); Ketones NEGATIVE (NEGATIVE); Leukocyte Esterase NEGATIVE (NEGATIVE); Nitrite NEGATIVE (NEGATIVE); Protein,Urine Dip NEGATIVE (Negative); Specific Gravity 1.002 (1.005-1.025); Urobilinogen NEGATIVE mg/dL (0-1)
[2018-10-10 15:17] VITALS: BP 120/74; PULSE 70; O2SAT 98
== END 2018-10-10 15:17 | disposition home or self-care (01) ==
LOC: ED 11:28
DX: R10.9 Unspecified abdominal pain (principal); R30.0 Dysuria; R11.2 Nausea with vomiting, unspecified; Z79.899 Other long term (current) drug therapy
CPT/HCPCS: 36415; 80053; 81001; 81025; 82150; 83690; 85025; 96360; 96374; 96375; 99284; J1885; J2405; J2550

== ENCOUNTER 2018-10-20 12:11 | Emergency (ER) | payer OTHER ==
[2018-10-20] MEDS ORDERED: Zofran 4 MG/2 ML VIAL IV ONE (12:34)
[2018-10-20] MEDS ORDERED: Sodium Chloride 0.9% 1000 ML 1,000 ML IV STA ×2 (12:34→15:23)
[2018-10-20] MEDS ORDERED: TORAdol 30 mg Injection IV ONE (12:34)
[2018-10-20] MEDS ORDERED: Zofran 4 MG/2 ML VIAL ONE (12:41)
--- NOTE | 2018-10-20 12:41 | ERPHSYRPT ---
- History of Present Illness Time Seen by Provider: 10/20/18 12:31 Historian: patient Exam Limitations: no limitations Patient Subjective Stated Complaint: pain in lower right back that radiates to the front lower abdomen and to the bladder, N&V Triage Nursing Assessment: Pt c/o of waking in the night with severe lower right back pain that radiates to the lower right abdomen, nausea and vomiting, tachycardic, BP 153/99, rates pain 8/10, was here on the and was told that she had a kidney stone and that she had a couple of others that didn't look like they were moving, bowel sounds heard in all 4 quadrants Physician History: 28-year-old white female with history of GERD, gallbladder disease, anxiety, depression, panic disorder, endometriosis, PID, chronic pelvic pain Patient arrives with complaint of pain in her right flank radiates to her right lower quadrant symptoms since early this morning she states she's had vomiting describes the pain as sharp. Patient has been seen on 2 prior occasions in this emergency room (on October 07, October 10), for back pain and abdominal pain on the right side. Patient had a CT at that time it showed 2 micro-calculi in her right kidney and a small amount of fluid in the cul-de-sac. Patient states she contacted her family physician's office this morning and was told to present to the emergency room. Past medical history includes GERD, gallbladder disease, anxiety, depression, panic disorder, endometriosis, PID, chronic pelvic pain, 3 head injuries. Past surgical history includes appendectomy, cholecystectomy, exploratory laparotomy. Social history is positive for tobacco use. Timing/Duration: today (pain early this morning 2-3:00 am) Activities at Onset: none Quality: cramping, sharpness Abdominal Pain Onset Location: RLQ, flank (right flank) Pain Radiation: RLQ, flank (right flank) Severity of Pain-Max: moderate Severity of Pain-Current: moderate Modifying Factors: Improves With: vomiting. Worsens With: analgesics, antacids , breathing, coughing, defecating, eating, exercise, lying down, movement, palpation, rest, urinating Associated Symptoms: back (right flank pain), nausea, vomiting, No chest pain, No diaphoresis, No diarrhea, No fever/chills, No fatigue, No headache, No heartburn, No loss of appetite, No neck pain, No rash, No shortness of breath, No syncope Previous symptoms: same symptoms as today Allergies/Adverse Reactions: Penicillins Adverse Reaction (Mild, Verified 10/20/18 12:26) pt states she is not had problems with antibitics related to pcn as an adult Home Medications: ALPRAZolam [Alprazolam] 0.5 mg PO Q8H PRN PRN 07/20/18 [History] Acetaminophen [Tylenol Extra Strength] 1,000 mg PO Q4-6HPRN PRN 07/20/18 [ History] Lisinopril 5 mg [Zestril 5 MG] 20 mg PO BID 07/20/18 [History] Metoprolol Succinate 100 mg [Toprol Xl 100 MG] 100 mg PO BID 07/20/18 [ History] Oxycodone / APAP 10/325 mg [Oxycodone-Acetaminophen 10-325] 1 tab TID [History] Topiramate 25 mg DAILY 10/10/18 [History] Tramadol HCl 50 mg [Ultram 50 mg] 1 tab TID 10/10/18 [History] Hx Tetanus, Diphtheria Vaccination/Date Given: (unknown) Hx Influenza Vaccination/Date Given: No Hx Pneumococcal Vaccination/Date Given: No - Review of Systems Constitutional: No Fever, No Chills Eyes: No Symptoms Ears, Nose, & Throat: No Symptoms Respiratory: No Cough, No Dyspnea Cardiac: No Chest Pain, No Edema, No Syncope Abdominal/Gastrointestinal: Abdominal Pain (right lowerr quadrant abdominal pain ), Nausea, Vomiting, No Diarrhea, No Constipation, No Hematemesis, No Hematochezia, No Melena, No Dysphagia, No Appetite Changes Genitourinary Symptoms: Flank Pain (right flank pain), No Dysuria Musculoskeletal: No Back Pain, No Neck Pain Skin: No Rash Neurological: No Dizziness, No Focal Weakness, No Sensory Changes Psychological: No Symptoms Endocrine: No Symptoms All Other Systems: Reviewed and Negative - Past Medical History Pertinent Past Medical History: Yes Neurological History: No Pertinent History ENT History: No Pertinent History Cardiac History: No Pertinent History Respiratory History: No Pertinent History Endocrine Medical History: No Pertinent History Musculoskeletal History: No Pertinent History GI Medical History: GERD, Gallbladder Disease, Other History: Other Psycho-Social History: Anxiety, Depression, Panic Disorder Female Reproductive Disorders: Endometriosis Other Medical History: abn pap smear, endometriosis r/o with laparoscopy , PID. being seen for chronic pelvic pain,. pt states she has had 3 head injuries - Past Surgical History Past Surgical History: Yes Neuro Surgical History: No Pertinent History Cardiac: No Pertinent History Respiratory: No Pertinent History Gastrointestinal: Appendectomy, Cholecystectomy Genitourinary: No Pertinent History Musculoskeletal: No Pertinent History Female Surgical History: No Pertinent History Other Surgical History: exploratory laparoscopy per Dr Hidalgo 2014- negative - Social History Smoking Status: Current every day smoker How long have you smoked: 10 Exposure to second hand smoke: Yes Alcohol Use: Socially Drug Use: none Patient Lives Alone: No Significant Family History: no pertinent family hx - Female History Hx Last Menstrual Period: t-7 Hx Now: No - Nursing Vital Signs Nursing Vital Signs: Initial Vital Signs Temperature 98.0 F 10/20/18 12:15 Pulse Rate 111 H 10/20/18 12:15 Blood Pressure 153/99 10/20/18 12:15 O2 Sat by Pulse Oximetry 98 10/20/18 12:15 Pain Scale Pain Intensity 9 - Physical Exam General Appearance: mild distress Eye Exam: PERRL/EOMI, eyes nml inspection Ears, Nose, Throat Exam: normal ENT inspection, pharynx normal, moist mucous membranes Neck Exam: normal inspection, non-tender, supple, full range of motion Respiratory Exam: normal breath sounds, lungs clear, No respiratory distress Cardiovascular Exam: regular rate/rhythm, normal heart sounds Gastrointestinal/Abdomen Exam: soft, normal bowel sounds, tenderness (right lower quadrant tenderness), No distention, No mass, No guarding, No ecchymosis, No pulsatile mass Back Exam: normal inspection, normal range of motion, No CVA tenderness, No vertebral tenderness Extremity Exam: normal inspection, normal range of motion, pelvis stable Neurologic Exam: alert, oriented x 3, cooperative, 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 Stable, nonobstructing right renal micro-calculi and evidence for old granulomatous disease. 2. No new or acute intra-abdominal/pelvic abnormalities on this noncontrast exam.) Ordered Tests: Active Orders 24 hr Category Date Time Status IV Insertion STAT Care 10/20/18 12:34 Active ABDOMEN AND PELVIS W/0 CONTRAS [CT] Stat Exams 10/20/18 14:15 Completed AMYLASE Stat Lab 10/20/18 13:30 Completed CBC W DIFF Stat Lab 10/20/18 13:30 Completed CMP Stat Lab 10/20/18 13:30 Completed HCG QUALITATIVE,SERUM Stat Lab 10/20/18 13:30 Completed LIPASE Stat Lab 10/20/18 13:30 Completed Manual Differential NC Stat Lab 10/20/18 13:30 Completed UA W/RFX UR CULTURE Stat Lab 10/20/18 12:54 Completed Medication Summary Discontinued Medications Generic Name Dose Route Start Last Admin Trade Name Freq PRN Reason Stop Dose Admin Sodium Chloride 1,000 mls @ 999 mls/hr 10/20/18 12:34 10/20/18 14:08 Sodium Chloride 0.9% 1000 Ml IV 10/20/18 13:34 Infused .Q1H1M STA Infusion Sodium Chloride Confirm 10/20/18 12:42 Sodium Chloride 0.9% 1000 Ml Administered 10/20/18 12:43 Dose 1,000 mls @ ud .ROUTE .STK-MED ONE Sodium Chloride 1,000 mls @ 999 mls/hr 10/20/18 15:23 10/20/18 15:36 Sodium Chloride 0.9% 1000 Ml IV 10/20/18 16:23 999 mls/hr .Q1H1M STA Administration Sodium Chloride Confirm 10/20/18 15:35 Sodium Chloride 0.9% 1000 Ml Administered 10/20/18 15:36 Dose 1,000 mls @ ud .ROUTE .STK-MED ONE Ketorolac Tromethamine 30 mg 10/20/18 12:34 10/20/18 12:52 Toradol 30 Mg Injection IV 10/20/18 12:35 30 mg STAT ONE Administration Ketorolac Tromethamine Confirm 10/20/18 12:42 Toradol 30 Mg Injection Administered 10/20/18 12:43 Dose 30 mg .ROUTE .STK-MED ONE Morphine Sulfate 4 mg 10/20/18 13:22 10/20/18 13:27 Morphine Sulfate 4 Mg Inj IV 10/20/18 13:23 4 mg STAT ONE Administration Morphine Sulfate Confirm 10/20/18 13:26 Morphine Sulfate 4 Mg Inj Administered 10/20/18 13:27 Dose 4 mg .ROUTE .STK-MED ONE Morphine Sulfate 4 mg 10/20/18 15:26 10/20/18 15:36 Morphine Sulfate 4 Mg Inj IV 10/20/18 15:27 4 mg STAT ONE Administration Morphine Sulfate Confirm 10/20/18 15:35 Morphine Sulfate 4 Mg Inj Administered 10/20/18 15:36 Dose 4 mg .ROUTE .STK-MED ONE Ondansetron HCl 4 mg 10/20/18 12:34 10/20/18 12:51 Zofran 4 Mg/2 Ml Vial IV 10/20/18 12:35 4 mg STAT ONE Administration Ondansetron HCl Confirm 10/20/18 12:41 Zofran 4 Mg/2 Ml Vial Administered 10/20/18 12:42 Dose 4 mg .ROUTE .STK-MED ONE Lab/Rad Data: Laboratory Result Diagrams 10/20/18 13:30 10/20/18 13:30 Laboratory Results 10/20/18 10/20/18 10/20/18 Range/Units 13:30 13:30 13:30 WBC 9.1 (4.0-10.5) K/mm3 RBC 4.06 L (4.1-5.4) M/mm3 Hgb 13.2 (12.0-16.0) gm/dl Hct 39.7 (35-47) % MCV 97.8 (78-100) fl MCH 32.5 H (26-32) pg MCHC 33.2 (32-36) g/dl RDW 13.1 (11.5-14.0) % Plt Count 239 (150-450) K/mm3 MPV 12.2 H (6-9.5) fl Segmented Neutrophils 71 H (36.0-66.0) % Lymphocytes (Manual) 27 (24-44) % Monocytes (Manual) 2 (0.0-12.0) % Platelet Estimate NORMAL (NORMAL) RBC Morphology NORMAL Sodium 140 (137-145) mmol/L Potassium 3.6 (3.5-5.1) mmol/L Chloride 105 (98-107) mmol/L Carbon Dioxide 25 (22-30) mmol/L Anion Gap 12.9 (5-15) MEQ/L BUN 9 (7-17) mg/dL Creatinine 0.61 (0.52-1.04) mg/dL Estimated GFR > 60.0 ML/MIN Glucose 96 (74-106) mg/dL Calcium 9.5 (8.4-10.2) mg/dL Total Bilirubin 0.40 (0.2-1.3) mg/dL AST 31 (14-36) U/L ALT 38 H (0-35) U/L Alkaline Phosphatase 93 (38-126) U/L Serum Total Protein 7.7 (6.3-8.2) g/dL Albumin 4.6 (3.5-5.0) g/dL Amylase 84 (30-110) U/L Lipase 151 (23-300) U/L Serum , Qual NEGATIVE (Negative) Urine Color (YELLOW) Urine Appearance (CLEAR) Urine pH (5-6) Ur Specific [place] (1.005-1.025) Urine Protein (Negative) Urine Ketones (NEGATIVE) Urine Blood (0-5) [place]/ul Urine Nitrite (NEGATIVE) Urine Bilirubin (NEGATIVE) Urine Urobilinogen (0-1) mg/dL Ur Leukocyte Esterase (NEGATIVE) Urine WBC (Auto) (0-5) /HPF Urine RBC (Auto) (0-2) /HPF U Epithel Cells (Auto) (FEW) /HPF Urine Bacteria (Auto) (NEGATIVE) /HPF Urine Mucus (Auto) (NEGATIVE) /HPF Urine Culture Reflexed (NO) Urine Glucose (NEGATIVE) mg/dL 10/20/18 Range/Units 12:54 WBC (4.0-10.5) K/mm3 RBC (4.1-5.4) M/mm3 Hgb (12.0-16.0) gm/dl Hct (35-47) % MCV (78-100) fl MCH (26-32) pg MCHC (32-36) g/dl RDW (11.5-14.0) % Plt Count (150-450) K/mm3 MPV (6-9.5) fl Segmented Neutrophils (36.0-66.0) % Lymphocytes (Manual) (24-44) % Monocytes (Manual) (0.0-12.0) % Platelet Estimate (NORMAL) RBC Morphology Sodium (137-145) mmol/L Potassium (3.5-5.1) mmol/L Chloride (98-107) mmol/L Carbon Dioxide (22-30) mmol/L Anion Gap (5-15) MEQ/L BUN (7-17) mg/dL Creatinine (0.52-1.04) mg/dL Estimated GFR ML/MIN Glucose (74-106) mg/dL Calcium (8.4-10.2) mg/dL Total Bilirubin (0.2-1.3) mg/dL AST (14-36) U/L ALT (0-35) U/L Alkaline Phosphatase (38-126) U/L Serum Total Protein (6.3-8.2) g/dL Albumin (3.5-5.0) g/dL Amylase (30-110) U/L Lipase (23-300) U/L Serum , Qual (Negative) Urine Color [place]YN (YELLOW) Urine Appearance SLIGHTLY CLOUDY (CLEAR) Urine pH 6.0 (5-6) Ur Specific [place] 1.028 (1.005-1.025) Urine Protein 100 (Negative) Urine Ketones TRACE (NEGATIVE) Urine Blood NEGATIVE (0-5) [place]/ul Urine Nitrite NEGATIVE (NEGATIVE) Urine Bilirubin SMALL (NEGATIVE) Urine Urobilinogen 4 (0-1) mg/dL Ur Leukocyte Esterase NEGATIVE (NEGATIVE) Urine WBC (Auto) NONE SEEN (0-5) /HPF Urine RBC (Auto) 6-10 (0-2) /HPF U Epithel Cells (Auto) RARE (FEW) /HPF Urine Bacteria (Auto) FEW (NEGATIVE) /HPF Urine Mucus (Auto) SLIGHT (NEGATIVE) /HPF Urine Culture Reflexed NO (NO) Urine Glucose NEGATIVE (NEGATIVE) mg/dL - Progress Progress: improved Progress Note: 10/20/18 14:16 28-year-old white female was third presentation to the emergency room secondary to right-sided abdominal pain she was seen here on October 07 in October 10 for complaint of pain in her right flank radiating to right lower quadrant she states today she feels like this is more anterior than it has been the past she states that she's been having some vomiting also having crampy sharp pain Patient apparently had had a KUB in the past which was L2 possibly representing urolithiasis greater than [address] the following day noted that the patient had 2 micro-renal calculi is no evidence of urinary obstruction or urolithiasis Patient today has a white count of 9.1 hemoglobin 13 to hematocrit 39.8 platelets 239 Chemistry is normal amylase lipase are normal hCG is negative urinalysis 6-10 red cells per high-power field Patient has been given Zofran 4 mg IV normal saline 1 L IV Toradol 30 mg IV and has been given 4 mg of morphine.. Patient does not appear to be in acute distress however she states she does not feel much better Will go ahead and repeat her CT of her abdomen. She is inquiring about possible admission I've told the patient that we will see what the CT shows and I will discuss this with her family doctor. patient does have a history of chronic pelvic pain in the past. 10/20/18 15:26 CT of the patient's abdomen remarkable only for 2 micro-calculi in the right kidney. Patient's other labs are essentially normal with the exception of a few red cells in the patient's urine. I've discussed Patient's case with Dr. Khan he recommended giving the patient additional liter of normal saline. Would also like to try to arrange for the patient to be referred to a urologist. On an outpatient basis. Will give patient another liter of normal saline 4 mg of morphine. And I will ask the nurses to try to arrange an appointment with Dr. Holcomb. 10/20/18 16:15 An appointment was arranged with 's office on the at 2:30 PM. Patient can call to see if she can get a sooner appointment if necessary and it is available. Will send patient home on [place] for pain. - Departure Time of Disposition: 16:17 Departure Disposition: Home Clinical Impression: Right flank pain, Right lower quadrant abdominal pain Hematuria Qualifiers: Hematuria type: unspecified type Qualified Code(s): R31.9 - Hematuria, unspecified Urolithiasis Qualifiers: Urinary calculus location: kidney Qualified Code(s): N20.0 - Calculus of kidney Condition: Fair Critical Care Time: No Referrals: TAMELA KHAN [Primary Care Provider] - JUANJO HOLCOMB [COURTESY STAFF] - 11/18/18 2:30 pm Instructions: Acute Abdomen (Belly Pain), Adult (DC) Additional Instructions: Return home. Plenty of fluids. [place] as prescribed. Follow-up with Dr. Holcomb November 18 at 2:30 PM. You may call and see if an earlier appointment is available if necessary an appointment is available. Return for acute distress or for severe symptoms. Prescriptions: Hydrocodone/Acetaminophen [[place] 5-325 Tablet] 1 tab PO Q4-6HPRN PRN #15 tablet MDD 6 tablets PRN Reason: Pain
[2018-10-20] MEDS ORDERED: TORAdol 30 mg Injection ONE (12:42)
[2018-10-20] MEDS ORDERED: Sodium Chloride 0.9% 1000 ML 1,000 ML ONE ×2 (12:42→15:35)
[2018-10-20 13:02] LABS: Appearance SLIGHTLY CLOUDY (CLEAR); Bilirubin SMALL (NEGATIVE); Blood NEGATIVE Ery/ul (0-5); Glucose NEGATIVE (NEGATIVE); Ketones TRACE (NEGATIVE); Leukocyte Esterase NEGATIVE (NEGATIVE); Nitrite NEGATIVE (NEGATIVE); Protein,Urine Dip 100 (Negative); Specific Gravity 1.028 (1.005-1.025); Urobilinogen 4 mg/dL (0-1)
[2018-10-20] MEDS ORDERED: MORPHINE SULFATE 4 MG INJ IV ONE ×2 (13:22→15:26)
[2018-10-20] MEDS ORDERED: MORPHINE SULFATE 4 MG INJ ONE ×2 (13:26→15:35)
[2018-10-20 13:34] VITALS: BP 147/87; PULSE 92
[2018-10-20 13:39] LABS: Hematocrit 39.7 % (35-47); Hemoglobin 13.2 gm/dl (12.0-16.0); Mean Cell Volume 97.8 fl (78-100); Mean Corpuscular Hemoglobin 32.5 pg (26-32); Mean Corpuscular Hgb Concent. 33.2 g/dl (32-36); Mean Platelet Volume 12.2 fl (6-9.5); Platelet Count 239 K/mm3 (150-450); Red Blood Count 4.06 M/mm3 (4.1-5.4); Red Cell Distribution Width 13.1 % (11.5-14.0); White Blood Count 9.1 K/mm3 (4.0-10.5)
[2018-10-20 13:58] LABS: ALBUMIN 4.6 g/dL (3.5-5.0); ALKALINE PHOSPHATASE 93 U/L (38-126); AMYLASE 84 U/L (30-110); ANION GAP 12.9 MEQ/L (5-15); BLOOD UREA NITROGEN 9 mg/dL (7-17); CHLORIDE 105 mmol/L (98-107); Calcium 9.5 mg/dL (8.4-10.2); Carbon Dioxide 25 mmol/L (22-30); Creatinine 1 0.61 mg/dL (0.52-1.04); Glucose 96 mg/dL (74-106); LIPASE 151 U/L (23-300); Potassium 3.6 mmol/L (3.5-5.1); SGOT/AST 31 U/L (14-36); SGPT/ALT 38 U/L (0-35); SODIUM 140 mmol/L (137-145); Total Protein 7.7 g/dL (6.3-8.2)
[2018-10-20 14:18] VITALS: O2SAT 98
[2018-10-20 14:37] LABS: Lymphocytes 27 % (24-44); Monocyte 2 % (0.0-12.0); Neutrophils 71 % (36.0-66.0); Platelet Estimate NORMAL (NORMAL); Total Cells Counted 100
--- NOTE | 2018-10-20 14:52 | XRAY ---
Indication: Abdomen/pelvic pain. Multiple contiguous axial images obtained through the abdomen and pelvis without contrast as ordered. Comparison: October 07, 2018. Lung bases demonstrate stable tiny left base calcified granulomas. No infiltrate or effusion. Heart is not enlarged. Noncontrasted stomach and bowel loops remain nonobstructed. Again 2 nonobstructing right renal micro-calculi, hepatic/splenic calcified granulomas, cholecystectomy, and appendectomy. No free fluid/air. Remaining liver, pancreas, spleen, adrenal glands, kidneys, ureters, bladder, uterus, and aorta appear unremarkable for noncontrast exam. Impression: 1. Stable nonobstructing right renal micro-calculi and evidence for old granulomatous disease. 2. No new or acute intra-abdominal/pelvic abnormalities on this noncontrast exam. CT DI 16.77
== END 2018-10-20 16:48 | disposition home or self-care (01) ==
LOC: ED 12:11
DX: R10.31 Right lower quadrant pain (principal); R31.9 Hematuria, unspecified; N20.0 Calculus of kidney; R11.2 Nausea with vomiting, unspecified; Z79.899 Other long term (current) drug therapy
CPT/HCPCS: 36415; 74176; 80053; 81001; 81025; 82150; 83690; 85025; 96360; 96361; 96374; 96375; 96376; 99284; J1885; J2270; J2405

== ENCOUNTER 2018-12-20 12:21 | Emergency (ER) | payer MEDICAID, OTHER ==
[2018-12-20] MEDS ORDERED: Sodium Chloride 0.9% 1000 ML 1,000 ML IV SCH (12:45)
[2018-12-20] MEDS ORDERED: MORPHINE SULFATE 4 MG INJ IV ONE (12:45)
[2018-12-20] MEDS ORDERED: Zofran 4 MG/2 ML VIAL IV ONE (12:45)
--- NOTE | 2018-12-20 12:55 | ERPHSYRPT ---
- History of Present Illness Time Seen by Provider: 12/20/18 12:51 Exam Limitations: no limitations Patient Subjective Stated Complaint: COUGH FOR ONE WEEK. LAST NIGHT WAS HAVING STABBING CHEST PAIN AND HAS GOTTEN WORSE TODAY. ALSO FEELING LIKE SHE IS SHORT OF BREATH. Triage Nursing Assessment: AMBULATED TO ROOM PER SELF. SKIN W/D, COLOR NORMAL, RESP NONLABORED. NO EDEMA NOTED. BREATH SOUNDS CLEAR. HEART TONES REGULAR. Physician History: 28-year-old white female with history of GERD, gallbladder disease, anxiety, panic disorder, chronic pelvic pain Patient arrives with complaint of sharp pain anterior chest associated with shortness of breath symptoms since last night she states she's been coughing for a week no fevers. Past medical history includes GERD, gallbladder disease, anxiety, panic disorder , endometriosis, abdominal pain, PID, chronic pelvic pain, head injury 3. Past surgical history includes appendectomy, cholecystectomy, exploratory laparotomy, Social history includes tobacco use patient denies alcohol or illicit drug use Timing/Duration: yesterday Activities at Onset: none Quality: sharpness Location: substernal Chest Pain Radiation: no radiation Severity of Pain-Max: moderate Severity of Pain-Current: moderate Modifying Factors: Improves With: breathing. Worsens With: antacids, coughing, defecating, eating, exertion, lying down, morphine, movement, nitroglycerin, oxygen, palpation, rest, aspirin, sitting up, change in position Associated Symptoms: shortness of breath, cough, hurts to breathe, No nausea, No vomiting, No palpitations, No heartburn, No abdominal pain, No diaphoresis, No chills, No fever, No fatigue, No weakness, No swelling/lump in chest, No syncope, No rash, No headache, No dizziness, No edema, No back pain Prior Chest Pain/Cardiac Workup: no prior chest pain Nitro Today/Relief: no nitro taken today Aspirin Treatment Today: 81 mg x 4, provided by ED Allergies/Adverse Reactions: Penicillins Adverse Reaction (Mild, Verified 12/20/18 12:40) pt states she is not had problems with antibitics related to pcn as an adult Home Medications: ALPRAZolam [Alprazolam] 0.5 mg PO Q8H PRN PRN 07/20/18 [History] Lisinopril 5 mg [Zestril 5 MG] 20 mg PO BID 07/20/18 [History] Metoprolol Succinate 100 mg [Toprol Xl 100 MG] 100 mg PO BID 07/20/18 [ History] ARIPiprazole [Aripiprazole] 5 mg PO DAILY 12/20/18 [History] Omeprazole 20 mg PO DAILY 12/20/18 [History] PARoxetine HCl [Paroxetine HCl] 40 mg PO DAILY 12/20/18 [History] Hx Tetanus, Diphtheria Vaccination/Date Given: Yes Hx Influenza Vaccination/Date Given: Yes Hx Pneumococcal Vaccination/Date Given: No - Review of Systems Constitutional: No Fever, No Chills Eyes: No Symptoms Ears, Nose, & Throat: No Symptoms Respiratory: Cough, Dyspnea, No Wheezing Cardiac: Chest Pain (sharp anterior chest pain) Abdominal/Gastrointestinal: No Abdominal Pain, No Nausea, No Vomiting, No Diarrhea Genitourinary Symptoms: No Dysuria Musculoskeletal: No Back Pain, No Neck Pain Skin: No Rash Neurological: No Dizziness, No Focal Weakness, No Sensory Changes Psychological: No Symptoms Endocrine: No Symptoms All Other Systems: Reviewed and Negative - Past Medical History Pertinent Past Medical History: Yes Neurological History: No Pertinent History ENT History: No Pertinent History Cardiac History: No Pertinent History Respiratory History: No Pertinent History Endocrine Medical History: No Pertinent History Musculoskeletal History: No Pertinent History GI Medical History: GERD, Gallbladder Disease, Other History: Other Psycho-Social History: Anxiety, Depression, Panic Disorder Female Reproductive Disorders: Endometriosis Other Medical History: abn pap smear, endometriosis r/o with laparoscopy , PID. being seen for chronic pelvic pain,. pt states she has had 3 head injuries - Past Surgical History Past Surgical History: Yes Neuro Surgical History: No Pertinent History Cardiac: No Pertinent History Respiratory: No Pertinent History Gastrointestinal: Appendectomy, Cholecystectomy Genitourinary: No Pertinent History Musculoskeletal: No Pertinent History Female Surgical History: No Pertinent History Other Surgical History: exploratory laparoscopy per Dr Hidalgo 2014- negative - Social History Smoking Status: Current every day smoker How long have you smoked: 3 Exposure to second hand smoke: No Alcohol Use: Socially Drug Use: none Patient Lives Alone: No Significant Family History: no pertinent family hx - Female History Hx Last Menstrual Period: ONE WEEK AGO Hx Now: No - Nursing Vital Signs Nursing Vital Signs: Initial Vital Signs Temperature 98.1 F 12/20/18 12:22 Pulse Rate 132 H 12/20/18 12:22 Respiratory Rate 18 12/20/18 12:22 Blood Pressure 169/96 12/20/18 12:22 O2 Sat by Pulse Oximetry 98 12/20/18 12:22 Pain Scale Pain Intensity 4 - Physical Exam General Appearance: mild distress, alert, anxiety Eye Exam: PERRL/EOMI, eyes nml inspection Ears, Nose, Throat Exam: normal ENT inspection, moist mucous membranes Neck Exam: normal inspection, non-tender, supple, full range of motion Respiratory Exam: normal breath sounds, lungs clear, No rhonchi, No wheezing Cardiovascular Exam: regular rate/rhythm, tachycardia, capillary refill <2 sec Gastrointestinal/Abdomen Exam: soft, No tenderness, No mass Back Exam: normal inspection, No CVA tenderness, No vertebral tenderness Extremity Exam: normal inspection, normal range of motion Neurologic Exam: alert, oriented x 3, cooperative, 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 No new/acute findings) Ordered Tests: Active Orders 24 hr Category Date Time Status Film Sorter STAT Care 12/20/18 12:46 Active EKG-ER Only STAT Care 12/20/18 12:45 Active IV Insertion STAT Care 12/20/18 12:45 Active Oxygen-ED Only NON-REBREATHER 100% Care 12/20/18 13:18 Active Pulse Oximetry (ED) STAT Care 12/20/18 12:45 Active CHEST 1 VIEW (PORTABLE) Stat Exams 12/20/18 12:45 Completed CBC W DIFF Stat Lab 12/20/18 13:00 Completed CMP Stat Lab 12/20/18 13:00 Completed D-DIMER QUANTITATION Stat Lab 12/20/18 13:00 Completed HCG QUALITATIVE,SERUM Stat Lab 12/20/18 13:00 Completed NT PRO BNP Stat Lab 12/20/18 13:00 Completed PROTIME WITH INR Stat Lab 12/20/18 13:00 Completed PTT Stat Lab 12/20/18 13:00 Completed TROPONIN Q3H Lab 12/20/18 13:00 Completed TROPONIN Q3H Lab 12/20/18 15:00 Completed UA W/RFX UR CULTURE Stat Lab 12/20/18 13:17 Completed VENOUS BLOOD GAS Stat Lab 12/20/18 13:05 Completed VENOUS BLOOD GAS Stat Lab 12/20/18 15:03 Completed Medication Summary Discontinued Medications Generic Name Dose Route Start Last Admin Trade Name Lazaro PRN Reason Stop Dose Admin Aspirin 324 mg 12/20/18 13:18 12/20/18 13:30 Baby Aspirin 81 Mg Chew PO 12/20/18 13:19 324 mg STAT ONE Administration Aspirin Confirm 12/20/18 13:28 Baby Aspirin 81 Mg Chew Administered 12/20/18 13:29 Dose 324 mg .ROUTE .STK-MED ONE Diphenhydramine HCl 25 mg 12/20/18 13:53 12/20/18 14:04 Benadryl 50 Mg/Ml IV 12/20/18 13:54 25 mg STAT ONE Administration Diphenhydramine HCl 25 mg 12/20/18 14:30 12/20/18 14:34 Benadryl 50 Mg/Ml IV 12/20/18 14:31 25 mg STAT ONE Administration Diphenhydramine HCl Confirm 12/20/18 14:32 Benadryl 50 Mg/Ml Administered 12/20/18 14:33 Dose 50 mg .ROUTE .STK-MED ONE Sodium Chloride 1,000 mls @ 100 mls/hr 12/20/18 12:45 12/20/18 13:11 Sodium Chloride 0.9% 1000 Ml IV 01/19/19 12:44 100 mls/hr .Q10H ANTONIO Administration Sodium Chloride Confirm 12/20/18 13:09 Sodium Chloride 0.9% 1000 Ml Administered 12/20/18 13:10 Dose 1,000 mls @ ud .ROUTE .STK-MED ONE Morphine Sulfate 4 mg 12/20/18 12:45 12/20/18 13:11 Morphine Sulfate 4 Mg Inj IV 12/20/18 12:46 4 mg STAT ONE Administration Morphine Sulfate Confirm 12/20/18 13:09 Morphine Sulfate 4 Mg Inj Administered 12/20/18 13:10 Dose 4 mg .ROUTE .STK-MED ONE Ondansetron HCl 4 mg 12/20/18 12:45 12/20/18 13:12 Zofran 4 Mg/2 Ml Vial IV 12/20/18 12:46 4 mg STAT ONE Administration Ondansetron HCl Confirm 12/20/18 13:08 Zofran 4 Mg/2 Ml Vial Administered 12/20/18 13:09 Dose 4 mg .ROUTE .STK-MED ONE Lab/Rad Data: Laboratory Result Diagrams 12/20/18 13:00 12/20/18 13:00 Laboratory Results 12/20/18 12/20/18 12/20/18 Range/Units 15:03 15:00 13:17 WBC (4.0-10.5) K/mm3 RBC (4.1-5.4) M/mm3 Hgb (12.0-16.0) gm/dl Hct (35-47) % MCV (78-100) fl MCH (26-32) pg MCHC (32-36) g/dl RDW (11.5-14.0) % Plt Count (150-450) K/mm3 MPV (6-9.5) fl Gran % (36.0-66.0) % Eos # (Auto) (0-0.5) Absolute Lymphs (auto) (1.0-4.6) Absolute Monos (auto) (0.0-1.3) Lymphocytes % (24.0-44.0) % Monocytes % (0.0-12.0) % Eosinophils % (0.00-5.0) % Basophils % (0.0-0.4) % Absolute Granulocytes (1.4-6.9) Basophils # (0-0.4) PT (9.95-12.35) SECONDS INR (0.8-3.0) APTT (25.3-37.0) SECONDS D-Dimer (215-500) ng/mL pO2/FiO2 Ratio 21.0 % VBG pH 7.40 (7.32-7.42) VBG pCO2 at Pat Temp 35 L (42-55) mm/Hg VBG pO2 at Pat Temp 55 H (25-40) mm/Hg VBG HCO3 21.7 L (22-28) meq/L VBG O2 Sat (Marc) 92.7 L (95-100) VBG Base Excess -2.5 L (-2.0-2.0) VBG Hemoglobin 12.7 VBG Carboxyhemoglobin 4.5 (0.0-6.9) % T HGB POC Potassium 3.7 (3.5-5.1) Sodium (137-145) mmol/L Potassium (3.5-5.1) mmol/L Chloride (98-107) mmol/L Carbon Dioxide (22-30) mmol/L Anion Gap (5-15) MEQ/L BUN (7-17) mg/dL Creatinine (0.52-1.04) mg/dL Estimated GFR ML/MIN Glucose (74-106) mg/dL Calcium (8.4-10.2) mg/dL Total Bilirubin (0.2-1.3) mg/dL AST (14-36) U/L ALT (0-35) U/L Alkaline Phosphatase (38-126) U/L Troponin I < 0.012 (0.000-0.034) ng/mL NT-Pro-B Natriuret Pep (0-450) pg/mL Serum Total Protein (6.3-8.2) g/dL Albumin (3.5-5.0) g/dL Serum , Qual (Negative) Urine Color YELLOW (YELLOW) Urine Appearance CLEAR (CLEAR) Urine pH 5.0 (5-6) Ur Specific [place] 1.028 (1.005-1.025) Urine Protein 30 (Negative) Urine Ketones NEGATIVE (NEGATIVE) Urine Blood NEGATIVE (0-5) [place]/ul Urine Nitrite NEGATIVE (NEGATIVE) Urine Bilirubin NEGATIVE (NEGATIVE) Urine Urobilinogen 2 (0-1) mg/dL Ur Leukocyte Esterase NEGATIVE (NEGATIVE) Urine WBC (Auto) 0-2 (0-5) /HPF Urine RBC (Auto) 6-10 (0-2) /HPF U Hyaline Cast (Auto) 3-5 (0-2) /LPF U Epithel Cells (Auto) FEW (FEW) /HPF Urine Mucus (Auto) SLIGHT (NEGATIVE) /HPF Urine Culture Reflexed NO (NO) Urine Glucose NEGATIVE (NEGATIVE) mg/dL 12/20/18 12/20/18 12/20/18 Range/Units 13:05 13:00 13:00 WBC (4.0-10.5) K/mm3 RBC (4.1-5.4) M/mm3 Hgb (12.0-16.0) gm/dl Hct (35-47) % MCV (78-100) fl MCH (26-32) pg MCHC (32-36) g/dl RDW (11.5-14.0) % Plt Count (150-450) K/mm3 MPV (6-9.5) fl Gran % (36.0-66.0) % Eos # (Auto) (0-0.5) Absolute Lymphs (auto) (1.0-4.6) Absolute Monos (auto) (0.0-1.3) Lymphocytes % (24.0-44.0) % Monocytes % (0.0-12.0) % Eosinophils % (0.00-5.0) % Basophils % (0.0-0.4) % Absolute Granulocytes (1.4-6.9) Basophils # (0-0.4) PT 10.5 (9.95-12.35) SECONDS INR 0.90 (0.8-3.0) APTT 25.4 (25.3-37.0) SECONDS D-Dimer 346 (215-500) ng/mL pO2/FiO2 Ratio 21.0 % VBG pH 7.41 (7.32-7.42) VBG pCO2 at Pat Temp 36 L (42-55) mm/Hg VBG pO2 at Pat Temp 39 (25-40) mm/Hg VBG HCO3 22.8 (22-28) meq/L VBG O2 Sat (Marc) 84.0 L (95-100) VBG Base Excess -1.4 (-2.0-2.0) VBG Hemoglobin 14.5 VBG Carboxyhemoglobin 9.2 H* (0.0-6.9) % T HGB POC Potassium 3.7 (3.5-5.1) Sodium (137-145) mmol/L Potassium (3.5-5.1) mmol/L Chloride (98-107) mmol/L Carbon Dioxide (22-30) mmol/L Anion Gap (5-15) MEQ/L BUN (7-17) mg/dL Creatinine (0.52-1.04) mg/dL Estimated GFR ML/MIN Glucose (74-106) mg/dL Calcium (8.4-10.2) mg/dL Total Bilirubin (0.2-1.3) mg/dL AST (14-36) U/L ALT (0-35) U/L Alkaline Phosphatase (38-126) U/L Troponin I (0.000-0.034) ng/mL NT-Pro-B Natriuret Pep (0-450) pg/mL Serum Total Protein (6.3-8.2) g/dL Albumin (3.5-5.0) g/dL Serum , Qual NEGATIVE (Negative) Urine Color (YELLOW) Urine Appearance (CLEAR) Urine pH (5-6) Ur Specific [place] (1.005-1.025) Urine Protein (Negative) Urine Ketones (NEGATIVE) Urine Blood (0-5) [place]/ul Urine Nitrite (NEGATIVE) Urine Bilirubin (NEGATIVE) Urine Urobilinogen (0-1) mg/dL Ur Leukocyte Esterase (NEGATIVE) Urine WBC (Auto) (0-5) /HPF Urine RBC (Auto) (0-2) /HPF U Hyaline Cast (Auto) (0-2) /LPF U Epithel Cells (Auto) (FEW) /HPF Urine Mucus (Auto) (NEGATIVE) /HPF Urine Culture Reflexed (NO) Urine Glucose (NEGATIVE) mg/dL 12/20/18 12/20/18 12/20/18 Range/Units 13:00 13:00 13:00 WBC 7.5 (4.0-10.5) K/mm3 RBC 4.31 (4.1-5.4) M/mm3 Hgb 13.7 (12.0-16.0) gm/dl Hct 43.1 (35-47) % MCV 100.0 (78-100) fl MCH 31.8 (26-32) pg MCHC 31.8 L (32-36) g/dl RDW 14.2 H (11.5-14.0) % Plt Count 251 (150-450) K/mm3 MPV 10.9 H (6-9.5) fl Gran % 57.8 (36.0-66.0) % Eos # (Auto) 0.10 (0-0.5) Absolute Lymphs (auto) 2.58 (1.0-4.6) Absolute Monos (auto) 0.46 (0.0-1.3) Lymphocytes % 34.5 (24.0-44.0) % Monocytes % 6.1 (0.0-12.0) % Eosinophils % 1.3 (0.00-5.0) % Basophils % 0.3 (0.0-0.4) % Absolute Granulocytes 4.32 (1.4-6.9) Basophils # 0.02 (0-0.4) PT (9.95-12.35) SECONDS INR (0.8-3.0) APTT (25.3-37.0) SECONDS D-Dimer (215-500) ng/mL pO2/FiO2 Ratio % VBG pH (7.32-7.42) VBG pCO2 at Pat Temp (42-55) mm/Hg VBG pO2 at Pat Temp (25-40) mm/Hg VBG HCO3 (22-28) meq/L VBG O2 Sat (Marc) (95-100) VBG Base Excess (-2.0-2.0) VBG Hemoglobin VBG Carboxyhemoglobin (0.0-6.9) % T HGB POC Potassium (3.5-5.1) Sodium 141 (137-145) mmol/L Potassium 4.1 (3.5-5.1) mmol/L Chloride 107 (98-107) mmol/L Carbon Dioxide 23 (22-30) mmol/L Anion Gap 14.9 (5-15) MEQ/L BUN 11 (7-17) mg/dL Creatinine 0.66 (0.52-1.04) mg/dL Estimated GFR > 60.0 ML/MIN Glucose 78 (74-106) mg/dL Calcium 9.7 (8.4-10.2) mg/dL Total Bilirubin 0.20 (0.2-1.3) mg/dL AST 24 (14-36) U/L ALT 26 (0-35) U/L Alkaline Phosphatase 110 (38-126) U/L Troponin I < 0.012 (0.000-0.034) ng/mL NT-Pro-B Natriuret Pep 31.7 (0-450) pg/mL Serum Total Protein 8.1 (6.3-8.2) g/dL Albumin 4.6 (3.5-5.0) g/dL Serum , Qual (Negative) Urine Color (YELLOW) Urine Appearance (CLEAR) Urine pH (5-6) Ur Specific [place] (1.005-1.025) Urine Protein (Negative) Urine Ketones (NEGATIVE) Urine Blood (0-5) [place]/ul Urine Nitrite (NEGATIVE) Urine Bilirubin (NEGATIVE) Urine Urobilinogen (0-1) mg/dL Ur Leukocyte Esterase (NEGATIVE) Urine WBC (Auto) (0-5) /HPF Urine RBC (Auto) (0-2) /HPF U Hyaline Cast (Auto) (0-2) /LPF U Epithel Cells (Auto) (FEW) /HPF Urine Mucus (Auto) (NEGATIVE) /HPF Urine Culture Reflexed (NO) Urine Glucose (NEGATIVE) mg/dL - Progress Progress: improved Air Movement: fair Progress Note: 12/20/18 16:06 Patient is feeling better she did receive IV normal saline, morphine, 4 mg, Benadryl 50 mg. Patient's heart rate is now 78. She had asked for admission earlier I've discussed the case with Dr. Tan he did not feel that she warranted admission did ask for repeat troponin both troponins are within normal limits patient with a normal chest x-ray. Patient initially with sinus tachycardia initially on her EKG no acute changes. Patient did have an elevated carbon monoxide level this is possibly secondary to smoking however I advised patient have her house checked for carbon monoxide due to the recently cold weather. Patient's carbon monoxide level improved after 1 hour of oxygen at 100% Impression 1 noncardiac chest pain, 2. Shortness of breath. 3. Increase carbon monoxide level. - Departure Time of Disposition: 16:09 Departure Disposition: Home Clinical Impression: Shortness of breath, Non-cardiac chest pain, increased carbon monoxide level Condition: Fair Critical Care Time: No Referrals: TAMELA TAN [Primary Care Provider] - Additional Instructions: Return home. Plenty of fluids. Stop smoking. Tylenol every 4 hours as needed for pain. Have your house checked for carbon monoxide. Follow-up with your family doctor. Home medications as prescribed by your family doctor. Return for acute distress or for severe symptoms.
[2018-12-20 13:05] LABS: BASOPHIL % 0.3 % (0.0-0.4); Basophil (Absolute #) 0.02 (0-0.4); Eosinophil % 1.3 % (0.00-5.0); Granulocyte Absolute (ANC) 4.32 (1.4-6.9); Granulocytes % 57.8 % (36.0-66.0); Hematocrit 43.1 % (35-47); Hemoglobin 13.7 gm/dl (12.0-16.0); Lymphocyte (Absolute #) 2.58 (1.0-4.6); Lymphocytes % 34.5 % (24.0-44.0); Mean Corpuscular Hemoglobin 31.8 pg (26-32); Mean Corpuscular Hgb Concent. 31.8 g/dl (32-36); Mean Platelet Volume 10.9 fl (6-9.5); Monocyte (Absolute #) 0.46 (0.0-1.3); Monocytes % 6.1 % (0.0-12.0); Platelet Count 251 K/mm3 (150-450); Red Blood Count 4.31 M/mm3 (4.1-5.4); Red Cell Distribution Width 14.2 % (11.5-14.0); White Blood Count 7.5 K/mm3 (4.0-10.5)
[2018-12-20] MEDS ORDERED: Zofran 4 MG/2 ML VIAL ONE (13:08)
--- NOTE | 2018-12-20 13:08 | XRAY ---
Indication: Chest pain. Comparison: September 26, 2018. Portable chest again demonstrates normal heart, lungs, and bony thorax with incidental calcified granulomas. No new/acute findings.
[2018-12-20] MEDS ORDERED: Sodium Chloride 0.9% 1000 ML 1,000 ML ONE (13:09)
[2018-12-20] MEDS ORDERED: MORPHINE SULFATE 4 MG INJ ONE (13:09)
[2018-12-20 13:16] LABS: VBG BASE EXCESS -1.4 (-2.0-2.0); VBG HCO3- 22.8 meq/L (22-28); VBG HEMOGLOBIN 14.5; VBG POTASSIUM 3.7 (3.5-5.1); VBG pH 7.41 (7.32-7.42)
[2018-12-20 13:17] LABS: VBG CARBOXYHEMOGLOBIN 9.2 % T HGB (0.0-6.9)
[2018-12-20] MEDS ORDERED: BABY ASPIRIN 81 MG CHEW PO ONE (13:18)
[2018-12-20 13:21] LABS: INR 0.9 (0.8-3.0); PROTIME 10.5 SECONDS (9.95-12.35)
[2018-12-20 13:23] LABS: PTT 25.4 SECONDS (25.3-37.0)
[2018-12-20] MEDS ORDERED: BABY ASPIRIN 81 MG CHEW ONE (13:28)
[2018-12-20 13:29] LABS: ALBUMIN 4.6 g/dL (3.5-5.0); ALKALINE PHOSPHATASE 110 U/L (38-126); ANION GAP 14.9 MEQ/L (5-15); BLOOD UREA NITROGEN 11 mg/dL (7-17); CHLORIDE 107 mmol/L (98-107); Calcium 9.7 mg/dL (8.4-10.2); Carbon Dioxide 23 mmol/L (22-30); Creatinine 1 0.66 mg/dL (0.52-1.04); Glucose 78 mg/dL (74-106); NT PRO BNP 31.7 pg/mL (0-450); Potassium 4.1 mmol/L (3.5-5.1); SGOT/AST 24 U/L (14-36); SGPT/ALT 26 U/L (0-35); SODIUM 141 mmol/L (137-145); Total Protein 8.1 g/dL (6.3-8.2)
[2018-12-20] MEDS ORDERED: BENADRYL 50 MG/ML IV ONE ×2 (13:53→14:30)
[2018-12-20 14:11] LABS: Appearance CLEAR (CLEAR); Bilirubin NEGATIVE (NEGATIVE); Blood NEGATIVE Ery/ul (0-5); Epithelial Cells FEW /HPF (FEW); Glucose NEGATIVE (NEGATIVE); Ketones NEGATIVE (NEGATIVE); Leukocyte Esterase NEGATIVE (NEGATIVE); Mucus SLIGHT /HPF (NEGATIVE); Nitrite NEGATIVE (NEGATIVE); Protein,Urine Dip 30 (Negative); Specific Gravity 1.028 (1.005-1.025); Urobilinogen 2 mg/dL (0-1); WBC 0-2 /HPF (0-5)
[2018-12-20] MEDS ORDERED: BENADRYL 50 MG/ML ONE (14:32)
[2018-12-20 15:06] LABS: VBG BASE EXCESS -2.5 (-2.0-2.0); VBG CARBOXYHEMOGLOBIN 4.5 % T HGB (0.0-6.9); VBG HCO3- 21.7 meq/L (22-28); VBG HEMOGLOBIN 12.7; VBG O2 SATURATION 92.7 (95-100); VBG POTASSIUM 3.7 (3.5-5.1); VBG pH 7.4 (7.32-7.42)
[2018-12-20 15:40] VITALS: BP 133/83; PULSE 74
[2018-12-20 16:11] VITALS: O2SAT 98
== END 2018-12-20 16:24 | disposition home or self-care (01) ==
LOC: ED 12:21
DX: R06.02 Shortness of breath (principal); R07.89 Other chest pain; T58.91XA Toxic effect of carbon monoxide from unspecified source, accidental (unintentional), initial encounter; K21.9 Gastro-esophageal reflux disease without esophagitis; F41.9 Anxiety disorder, unspecified
CPT/HCPCS: 36415; 71045; 80053; 81001; 81025; 82805; 83880; 84484; 85025; 85379; 85610; 85730; 93005; 93041; 96360; 96361; 96374; 96375; 96376; 99285; J1200; J2270; J2405; A9270-GY

== ENCOUNTER 2019-02-28 06:16 | Emergency (ER) | payer MEDICAID ==
--- NOTE | 2019-02-28 07:01 | ERPHSYRPT ---
- History of Present Illness Source: patient Exam Limitations: no limitations Patient Subjective Stated Complaint: pt states the door on her truck hit her in the ribs on the rt side Triage Nursing Assessment: pt alert and oriented, asnwers questions approp. pt ambulatoryw ith steady gait noted. respirations nonlabored with lungs cta. skin pink warm and dry. respirations nonlabored, lungs cta. tenderness noted to rt rib area. no bruising noted at thist [place]. Occurred: just prior to arrival Reason for Fall: fell from standing pos (into closing door) Injuries/Pain Location: chest (right lateral ribs) Loss of Consciousness: no loss of consciousness Quality: aching, sharpness, stabbing Severity of Pain-Max: moderate Severity of Pain-Current: moderate Modifying Factors: Improves With: movement Associated Symptoms (Fall): other (right rib pain) Hx Tetanus, Diphtheria Vaccination/Date Given: Yes Hx Influenza Vaccination/Date Given: Yes Hx Pneumococcal Vaccination/Date Given: No Immunizations Up to Date: Yes <BUBBA WANG - Last Filed: 02/28/19 07:07> <MARLA WALKER - Last Filed: 02/28/19 07:59> - History of Present Illness Time Seen by Provider: 02/28/19 06:45 Physician History: 28 y/o white female presents with right rib pain. pts purse caught door handle as pt attempted to close door. she hit edge of car door on right lateral ribs. pt has sig pain and trouble breathing because of pain. pt has h/o htn and anxiety. (BUBBA WANG) Allergies/Adverse Reactions: Penicillins Adverse Reaction (Mild, Verified 02/28/19 06:33) pt states she is not had problems with antibitics related to pcn as an adult Home Medications: ALPRAZolam [Alprazolam] 0.5 mg PO Q8H PRN PRN 07/20/18 [History] Lisinopril 5 mg [Zestril 5 MG] 20 mg PO BID 07/20/18 [History] Metoprolol Succinate 100 mg [Toprol Xl 100 MG] 100 mg PO BID 07/20/18 [ History] ARIPiprazole [Aripiprazole] 5 mg PO DAILY 12/20/18 [History] Omeprazole 20 mg PO DAILY 12/20/18 [History] PARoxetine HCl [Paroxetine HCl] 40 mg PO DAILY 12/20/18 [History] - Review of Systems Constitutional: No Symptoms Eyes: No Symptoms Ears, Nose, & Throat: No Symptoms Respiratory: No Symptoms Cardiac: No Symptoms Abdominal/Gastrointestinal: No Symptoms Genitourinary Symptoms: No Symptoms Musculoskeletal: Fall, Injury (right lateral ribs) Skin: No Symptoms Neurological: No Symptoms Psychological: No Symptoms Endocrine: No Symptoms Hematologic/Lymphatic: No Symptoms Immunological/Allergic: No Symptoms All Other Systems: Reviewed and Negative <BUBBA WANG - Last Filed: 02/28/19 07:07> - Past Medical History Pertinent Past Medical History: Yes Neurological History: No Pertinent History ENT History: No Pertinent History Cardiac History: No Pertinent History, Hypertension Respiratory History: No Pertinent History Endocrine Medical History: No Pertinent History Musculoskeletal History: No Pertinent History GI Medical History: Gallbladder Disease, Other History: Other Psycho-Social History: Anxiety, Depression, Panic Disorder Female Reproductive Disorders: Endometriosis Other Medical History: abn pap smear, endometriosis r/o with laparoscopy , PID. being seen for chronic pelvic pain,. pt states she has had 3 head injuries - Past Surgical History Past Surgical History: Yes Neuro Surgical History: No Pertinent History Cardiac: No Pertinent History Respiratory: No Pertinent History Gastrointestinal: Appendectomy, Cholecystectomy Genitourinary: No Pertinent History Musculoskeletal: No Pertinent History Female Surgical History: No Pertinent History Other Surgical History: exploratory laparoscopy per Dr Hidalgo 2014- negative - Social History Smoking Status: Current every day smoker How long have you smoked: 3 Exposure to second hand smoke: No Alcohol Use: Socially Drug Use: none Patient Lives Alone: No Significant Family History: no pertinent family hx - Female History Hx Last Menstrual Period: 2 weeks Hx Now: No <BUBBA WANG - Last Filed: 02/28/19 07:07> - Katie Coma Score Best Eye Response (Katie): (4) open spontaneously Best Verbal Response ([place]): (5) oriented Best Motor Response (Katie): (6) obeys commands [place] Total: 15 - Physical Exam General Appearance: mild distress, alert, anxiety Head Injury: no evidence of injury, No active bleeding, No Gregory's Sign, No contusions, No swelling Eye Exam: PERRL/EOMI, eyes nml inspection ENT Exam: airway nml, nml ext.inspection Neck Exam: supple, trachea midline, full range of motion, normal alignment Respiratory/Chest Exam: normal breath sounds, respiratory distress, rib tenderness (right lateral ), No ecchymosis, No accessory muscle use, No palpable fracture, No paradoxical movements Cardiovascular Exam: normal heart sounds, regular rate/rhythm, murmur Gastrointestinal Exam: soft, normal bowel sounds, No tenderness, No guarding Rectal Exam: not done Back Exam: normal inspection, normal range of motion, No CVA tenderness, No vertebral tenderness Extremity Exam: normal inspection, normal range of motion, pelvis stable Neurologic Exam: alert, oriented x 3, cooperative, 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 tested, normal mood/affect, nml cerebellar function, nml station & gait, sensation nml Skin Exam: normal color, warm, dry SpO2 Interpretation: normal SpO2: 96 O2 Delivery: Room Air <BUBBA WANG - Last Filed: 02/28/19 07:07> - Nursing Vital Signs Nursing Vital Signs: Initial Vital Signs Temperature 98.7 F 02/28/19 06:23 Pulse Rate 116 H 02/28/19 06:23 Respiratory Rate 20 02/28/19 06:23 Blood Pressure 158/97 02/28/19 06:23 O2 Sat by Pulse Oximetry 96 02/28/19 06:23 Pain Scale Pain Intensity 6 - Radiology Exams Chest X-ray Interpretation: Interpreted by me, Negative, No Infiltrates Right Chest X-ray Interpretation: Interpreted by me, Negative, No Fracture <MARLA WALKRE - Last Filed: 02/28/19 07:59> Ordered Tests: Active Orders 24 hr Category Date Time Status CHEST 1 VIEW (PORTABLE) Stat Exams 02/28/19 07:02 Taken RIBS UNILATERAL Stat Exams 02/28/19 07:03 Taken Medication Summary Discontinued Medications Generic Name Dose Route Start Last Admin Trade Name Freq PRN Reason Stop Dose Admin Ketorolac Tromethamine 60 mg 02/28/19 07:29 02/28/19 07:33 Toradol 30 Mg Injection IM 02/28/19 07:30 60 mg STAT ONE Administration <BUBBA WANG - Last Filed: 02/28/19 07:07> - Progress Progress: improved, pain not gone completely Counseled pt/family regarding: diagnosis, need for follow-up, rad results <MARLA WALKER - Last Filed: 02/28/19 07:59> - Progress Progress Note: 02/28/19 07:07 i transferred care to dr. walker. he accepts pt in transfer. (BUBBA WANG) 02/28/19 07:33, CHEST EXAM: MARKED TENDERNESS RIGHT MID LATERAL RIBS 6TH TO 10TH RIBS, NO CREPITUS, ECCHYMOSIS OR SUBQ EMPHYSEMA, CARDIAC: REG NORMAL S1 S2 02/28/19 07:40 ADMINISTERED TORADOL 60MG IM (MARLA WALKER) <BUBBA WANG - Last Filed: 02/28/19 07:07> - Departure Departure Disposition: Home Critical Care Time: No <MARLA WALKER - Last Filed: 02/28/19 07:59> - Departure Clinical Impression: RIGHT CHEST WALL CONTUSION Condition: Stable Referrals: TAMELA KHAN [Primary Care Provider] - Additional Instructions: TORADOL 10MG EVERY 6 HOURS FOR PAIN AND ULTRAM 50MG EVERY 6 HOURS NEEDED FOR BREAKTHROUGH PAIN. CONSULT YOUR PRIMARY CARE PROVIDER FOR FOLLOWUP IN 1 WEEK. RETURN TO EMERGENCY ROOM FOR ONSET OF DIFFICULTY BREATHING. Prescriptions: Ketorolac Tromethamine [Toradol] 10 mg PO Q6HPRN PRN #20 tablet PRN Reason: Pain Tramadol HCl 50 mg [Ultram 50 mg] 50 mg PO Q6HPRN PRN #10 tablet PRN Reason: Pain
[2019-02-28] MEDS ORDERED: TORAdol 30 mg Injection ONE (07:32)
[2019-02-28] MEDS: TORAdol 30 mg Injection IM ONE (07:33)
[2019-02-28 08:05] VITALS: BP 137/86; PULSE 70; O2SAT 97
--- NOTE | 2019-02-28 09:24 | XRAY ---
Indication: Right-sided pain following injury. Comparison: December 20, 2018. Single PA chest again demonstrates normal heart, lungs, and bony thorax with a few incidental calcified granulomas.
--- NOTE | 2019-02-28 09:24 | XRAY ---
Indication: Pain following injury. Comparison: None 2 views of the right ribs obtained. No bony, articular, or soft tissue abnormalities.
== END 2019-02-28 08:09 | disposition home or self-care (01) ==
LOC: ED 06:16
DX: S20.211A Contusion of right front wall of thorax, initial encounter (principal); R07.81 Pleurodynia; W22.8XXA Striking against or struck by other objects, initial encounter; I10 Essential (primary) hypertension; F41.9 Anxiety disorder, unspecified; F32.9 Major depressive disorder, single episode, unspecified; Z79.899 Other long term (current) drug therapy
CPT/HCPCS: 71045; 71100; 96372; 99284; J1885

== ENCOUNTER 2020-01-18 13:18 | Emergency (ER) | payer SELFPAY ==
[2020-01-18] MEDS ORDERED: Zofran 4 MG/2 ML VIAL IV ONE (13:46)
[2020-01-18] MEDS ORDERED: MORPHINE SULFATE 4 MG INJ IV ONE (13:46)
--- NOTE | 2020-01-18 13:54 | ERPHSYRPT ---
- History of Present Illness Time Seen by Provider: 01/18/20 13:40 Historian: patient Exam Limitations: no limitations Physician History: 29 years old female with cholecystectomy/appendectomy in the past presented in the ER with sudden onset right flank pain/right upper quadrant pain moderate to severe intensity, radiating to the back, aggravated with minimal movements, palpation and no significant relieving factors. Denies any vomiting but does have nausea. Denies any fever or chills. Patient denies any urinary symptoms associated with it. Timing/Duration: yesterday, sudden, worse Activities at Onset: rest Quality: sharpness, stabbing Abdominal Pain Onset Location: RUQ, flank Pain Radiation: back Severity of Pain-Max: severe Severity of Pain-Current: severe Modifying Factors: Improves With: movement, palpation Associated Symptoms: nausea Previous symptoms: no prior history Allergies/Adverse Reactions: Penicillins Adverse Reaction (Mild, Verified 02/28/19 06:33) pt states she is not had problems with antibitics related to pcn as an adult Home Medications: ALPRAZolam [Alprazolam] 0.5 mg PO Q8H PRN PRN 07/20/18 [History] Lisinopril 5 mg [Zestril 5 MG] 20 mg PO BID 07/20/18 [History] Metoprolol Succinate 100 mg [Toprol Xl 100 MG] 100 mg PO BID 07/20/18 [ History] ARIPiprazole [Aripiprazole] 5 mg PO DAILY 12/20/18 [History] Omeprazole 20 mg PO DAILY 12/20/18 [History] PARoxetine HCl [Paroxetine HCl] 40 mg PO DAILY 12/20/18 [History] Hx Tetanus, Diphtheria Vaccination/Date Given: Yes Hx Influenza Vaccination/Date Given: Yes Hx Pneumococcal Vaccination/Date Given: No - Review of Systems Constitutional: No Symptoms Eyes: No Symptoms Ears, Nose, & Throat: No Symptoms Respiratory: No Symptoms Cardiac: No Symptoms Abdominal/Gastrointestinal: Abdominal Pain, Nausea Genitourinary Symptoms: No Symptoms Musculoskeletal: Back Pain Skin: No Symptoms Neurological: No Symptoms Psychological: No Symptoms Hematologic/Lymphatic: No Symptoms Immunological/Allergic: No Symptoms - Past Medical History Pertinent Past Medical History: Yes Neurological History: No Pertinent History ENT History: No Pertinent History Cardiac History: No Pertinent History, Hypertension Respiratory History: No Pertinent History Endocrine Medical History: No Pertinent History Musculoskeletal History: No Pertinent History GI Medical History: Gallbladder Disease, Other History: Other Psycho-Social History: Anxiety, Depression, Panic Disorder Female Reproductive Disorders: Endometriosis Other Medical History: abn pap smear, endometriosis r/o with laparoscopy , PID. being seen for chronic pelvic pain,. pt states she has had 3 head injuries - Past Surgical History Past Surgical History: Yes Neuro Surgical History: No Pertinent History Cardiac: No Pertinent History Respiratory: No Pertinent History Gastrointestinal: Appendectomy, Cholecystectomy Genitourinary: No Pertinent History Musculoskeletal: No Pertinent History Female Surgical History: No Pertinent History Other Surgical History: exploratory laparoscopy per Dr Hidalgo 2015- negative - Social History Smoking Status: Current every day smoker How long have you smoked: 3 Exposure to second hand smoke: No Alcohol Use: Socially Drug Use: none Patient Lives Alone: No Significant Family History: no pertinent family hx - Female History Hx Now: (UNKN) - Nursing Vital Signs Nursing Vital Signs: Initial Vital Signs Temperature 99.3 F 01/18/20 13:32 Pulse Rate 115 H 01/18/20 13:32 Respiratory Rate 16 01/18/20 13:32 Blood Pressure 215/120 01/18/20 13:32 O2 Sat by Pulse Oximetry 100 01/18/20 13:32 Pain Scale Pain Intensity [Back] 9 Pain Intensity 0 - Physical Exam General Appearance: mild distress Eye Exam: PERRL/EOMI Ears, Nose, Throat Exam: normal ENT inspection, TMs normal Neck Exam: normal inspection, non-tender, supple Respiratory Exam: normal breath sounds, lungs clear Cardiovascular Exam: regular rate/rhythm, normal peripheral pulses, tachycardia Gastrointestinal/Abdomen Exam: soft, tenderness (Right upper quadrant/right flank) Back Exam: normal inspection, normal range of motion Extremity Exam: normal inspection, normal range of motion Neurologic Exam: alert, oriented x 3, cooperative Skin Exam: normal color SpO2 Interpretation: normal O2 Delivery: Room Air - Course Nursing assessment & vital signs reviewed: Yes Ordered Tests: Active Orders 24 hr Category Date Time Status IV Insertion STAT Care 01/18/20 13:46 Active NPO (ED) STAT Care 01/18/20 13:46 Active ABDOMEN AND PELVIS W CONTRAST [CT] Stat Exams 01/18/20 13:47 Completed CBC W DIFF Stat Lab 01/18/20 14:12 Completed CMP Stat Lab 01/18/20 14:12 Completed HCG,QUALITATIVE URINE Stat Lab 01/18/20 14:15 Completed LIPASE Stat Lab 01/18/20 14:12 Completed UA W/RFX UR CULTURE Stat Lab 01/18/20 14:15 Completed Medication Summary Discontinued Medications Generic Name Dose Route Start Last Admin Trade Name Rexq PRN Reason Stop Dose Admin Morphine Sulfate 4 mg 01/18/20 13:46 01/18/20 13:58 Morphine Sulfate 4 Mg Inj IV 01/18/20 13:47 4 mg STAT ONE Administration Morphine Sulfate Confirm 01/18/20 13:56 Morphine Sulfate 4 Mg Inj Administered 01/18/20 13:57 Dose 4 mg .ROUTE .STK-MED ONE Ondansetron HCl 4 mg 01/18/20 13:46 01/18/20 13:58 Zofran 4 Mg/2 Ml Vial IV 01/18/20 13:47 4 mg STAT ONE Administration Ondansetron HCl Confirm 01/18/20 13:56 Zofran 4 Mg/2 Ml Vial Administered 01/18/20 13:57 Dose 4 mg .ROUTE .STK-MED ONE Lab/Rad Data: Laboratory Result Diagrams 01/18/20 14:12 01/18/20 14:12 Laboratory Results 01/18/20 01/18/20 01/18/20 Range/Units 14:15 14:15 14:12 WBC (4.0-10.5) K/mm3 RBC (4.1-5.4) M/mm3 Hgb (12.0-16.0) gm/dl Hct (35-47) % MCV (78-100) fl MCH (26-32) pg MCHC (32-36) g/dl RDW (11.5-14.0) % Plt Count (150-450) K/mm3 MPV (7.5-11.0) fl Gran % (36.0-66.0) % Eos # (Auto) (0-0.5) Absolute Lymphs (auto) (1.0-4.6) Absolute Monos (auto) (0.0-1.3) Lymphocytes % (24.0-44.0) % Monocytes % (0.0-12.0) % Eosinophils % (0.00-5.0) % Basophils % (0.0-0.4) % Absolute Granulocytes (1.4-6.9) Basophils # (0-0.4) Sodium 138 (137-145) mmol/L Potassium 3.5 (3.5-5.1) mmol/L Chloride 105 (98-107) mmol/L Carbon Dioxide 22 (22-30) mmol/L Anion Gap 14.0 (5-15) MEQ/L BUN 6 L (7-17) mg/dL Creatinine 0.49 L (0.52-1.04) mg/dL Estimated GFR > 60.0 ML/MIN Glucose 108 H (74-106) mg/dL Calcium 9.1 (8.4-10.2) mg/dL Total Bilirubin 0.70 (0.2-1.3) mg/dL AST 69 H (14-36) U/L ALT 51 H (0-35) U/L Alkaline Phosphatase 115 (38-126) U/L Serum Total Protein 8.6 H (6.3-8.2) g/dL Albumin 4.7 (3.5-5.0) g/dL Lipase 94 (23-300) U/L Urine Color YELLOW (YELLOW) Urine Appearance SLIGHTLY CLOUDY (CLEAR) Urine pH 6.0 (5-6) Ur Specific [place] 1.011 (1.005-1.025) Urine Protein 100 (Negative) Urine Ketones NEGATIVE (NEGATIVE) Urine Blood NEGATIVE (0-5) [place]/ul Urine Nitrite NEGATIVE (NEGATIVE) Urine Bilirubin NEGATIVE (NEGATIVE) Urine Urobilinogen NEGATIVE (0-1) mg/dL Ur Leukocyte Esterase NEGATIVE (NEGATIVE) Urine WBC (Auto) 0-2 (0-5) /HPF Urine RBC (Auto) NONE (0-2) /HPF U Epithel Cells (Auto) RARE (FEW) /HPF Urine Bacteria (Auto) NONE (NEGATIVE) /HPF Urine Mucus (Auto) SLIGHT (NEGATIVE) /HPF Urine Culture Reflexed NO (NO) Urine Glucose NEGATIVE (NEGATIVE) mg/dL Urine HCG, Qual NEGATIVE (Negative) 01/18/20 Range/Units 14:12 WBC 9.5 (4.0-10.5) K/mm3 RBC 4.43 (4.1-5.4) M/mm3 Hgb 14.4 (12.0-16.0) gm/dl Hct 43.3 (35-47) % MCV 97.7 (78-100) fl MCH 32.5 H (26-32) pg MCHC 33.3 (32-36) g/dl RDW 14.4 H (11.5-14.0) % Plt Count 231 (150-450) K/mm3 MPV 11.0 (7.5-11.0) fl Gran % 70.4 H (36.0-66.0) % Eos # (Auto) 0.06 (0-0.5) Absolute Lymphs (auto) 2.00 (1.0-4.6) Absolute Monos (auto) 0.73 (0.0-1.3) Lymphocytes % 21.1 L (24.0-44.0) % Monocytes % 7.7 (0.0-12.0) % Eosinophils % 0.6 (0.00-5.0) % Basophils % 0.2 (0.0-0.4) % Absolute Granulocytes 6.65 (1.4-6.9) Basophils # 0.02 (0-0.4) Sodium (137-145) mmol/L Potassium (3.5-5.1) mmol/L Chloride (98-107) mmol/L Carbon Dioxide (22-30) mmol/L Anion Gap (5-15) MEQ/L BUN (7-17) mg/dL Creatinine (0.52-1.04) mg/dL Estimated GFR ML/MIN Glucose (74-106) mg/dL Calcium (8.4-10.2) mg/dL Total Bilirubin (0.2-1.3) mg/dL AST (14-36) U/L ALT (0-35) U/L Alkaline Phosphatase (38-126) U/L Serum Total Protein (6.3-8.2) g/dL Albumin (3.5-5.0) g/dL Lipase (23-300) U/L Urine Color (YELLOW) Urine Appearance (CLEAR) Urine pH (5-6) Ur Specific B[place] (1.005-1.025) Urine Protein (Negative) Urine Ketones (NEGATIVE) Urine Blood (0-5) Bo[place]/ul Urine Nitrite (NEGATIVE) Urine Bilirubin (NEGATIVE) Urine Urobilinogen (0-1) mg/dL Ur Leukocyte Esterase (NEGATIVE) Urine WBC (Auto) (0-5) /HPF Urine RBC (Auto) (0-2) /HPF U Epithel Cells (Auto) (FEW) /HPF Urine Bacteria (Auto) (NEGATIVE) /HPF Urine Mucus (Auto) (NEGATIVE) /HPF Urine Culture Reflexed (NO) Urine Glucose (NEGATIVE) mg/dL Urine HCG, Qual (Negative) - Progress Progress: improved, re-examined Counseled pt/family regarding: lab results, diagnosis, need for follow-up, rad results - Departure Departure Disposition: Home Clinical Impression: Acute flank pain, Hepatic steatosis Condition: Stable Critical Care Time: No Referrals: TAMELA KHAN [Primary Care Provider] - Follow Up with PCP/3 days Additional Instructions: take tylenol/ibuprofen as needed. follow up with PCP for re evaluation . return to ER for any worsening Prescriptions: Ibuprofen 600 mg PO Q6HPRN PRN 10 Days #20 tablet PRN Reason: Pain Cyclobenzaprine HCl 10 mg [Flexeril 10 MG] 10 mg PO TID #12 tablet
[2020-01-18] MEDS ORDERED: MORPHINE SULFATE 4 MG INJ ONE (13:56)
[2020-01-18] MEDS ORDERED: Zofran 4 MG/2 ML VIAL ONE (13:56)
[2020-01-18 14:12] LABS: Absolute Neutrophil Ct (ANC) 6.65 (1.4-6.9); BASOPHIL % 0.2 % (0.0-0.4); Basophil (Absolute #) 0.02 (0-0.4); Eosinophil % 0.6 % (0.00-5.0); Eosinophil (Absolute #) 0.06 (0-0.5); Hematocrit 43.3 % (35-47); Hemoglobin 14.4 gm/dl (12.0-16.0); Lymphocytes % 21.1 % (24.0-44.0); Mean Cell Volume 97.7 fl (78-100); Mean Corpuscular Hemoglobin 32.5 pg (26-32); Mean Corpuscular Hgb Concent. 33.3 g/dl (32-36); Monocyte (Absolute #) 0.73 (0.0-1.3); Monocytes % 7.7 % (0.0-12.0); Neutrophil % 70.4 % (36.0-66.0); Platelet Count 231 K/mm3 (150-450); Red Blood Count 4.43 M/mm3 (4.1-5.4); Red Cell Distribution Width 14.4 % (11.5-14.0); White Blood Count 9.5 K/mm3 (4.0-10.5)
[2020-01-18 14:23] LABS: Appearance SLIGHTLY CLOUDY (CLEAR); Bilirubin NEGATIVE (NEGATIVE); Blood NEGATIVE Ery/ul (0-5); Epithelial Cells RARE /HPF (FEW); Glucose NEGATIVE (NEGATIVE); Ketones NEGATIVE (NEGATIVE); Leukocyte Esterase NEGATIVE (NEGATIVE); Mucus SLIGHT /HPF (NEGATIVE); Nitrite NEGATIVE (NEGATIVE); Protein,Urine Dip 100 (Negative); Specific Gravity 1.011 (1.005-1.025); Urobilinogen NEGATIVE mg/dL (0-1); WBC 0-2 /HPF (0-5)
[2020-01-18 14:23] LABS: ALBUMIN 4.7 g/dL (3.5-5.0); ALKALINE PHOSPHATASE 115 U/L (38-126); BLOOD UREA NITROGEN 6 mg/dL (7-17); CHLORIDE 105 mmol/L (98-107); Calcium 9.1 mg/dL (8.4-10.2); Carbon Dioxide 22 mmol/L (22-30); Creatinine 1 0.49 mg/dL (0.52-1.04); Glucose 108 mg/dL (74-106); LIPASE 94 U/L (23-300); Potassium 3.5 mmol/L (3.5-5.1); SGOT/AST 69 U/L (14-36); SGPT/ALT 51 U/L (0-35); SODIUM 138 mmol/L (137-145); Total Protein 8.6 g/dL (6.3-8.2)
--- NOTE | 2020-01-18 15:19 | XRAY ---
Exam: CT of the abdomen and pelvis with IV contrast from 01/18/2020. Total DLP: 905.80 mGy-cm. Comparison: CT of the abdomen and pelvis without IV contrast from 10/20/2018. Indication: Mild right-sided abdominal and flank pain, no evidence of hematuria, checking for stone or colitis. The patient has a history of prior cholecystectomy and appendectomy. Technique: Post-IV contrast axial images were obtained through the abdomen and pelvis during and following automated injection of 80 cc of Isovue-370 contrast material. Reconstructed coronal and sagittal images were created and reviewed. No oral contrast was given. Findings: The visualized lung bases reveal a calcified granuloma at the lateral left lung base within the mid axillary line. There is also a smaller subpleural calcified granuloma posterolaterally at the left lung base. This is unchanged. No infiltrates or posterior pleural fluid is seen. There is moderate hepatic steatosis. No other focal liver lesion or biliary duct distention is seen. Surgical clips consistent with prior cholecystectomy are noted. Numerous calcified granulomas are again seen within the spleen. No mass or splenic enlargement is seen. The pancreas reveals mild prominence of the distal common bile duct, likely due to the patient's prior cholecystectomy. The adrenal glands appear unremarkable. Prior two tiny calcifications within the right kidney on the CT study from 10/20/2018 are unable to be seen on today's post-IV contrast exam. I see no renal mass or hydronephrosis. Both kidneys function on delay images. The renal size and shape appear unremarkable bilaterally. The visualized ureters appear unremarkable. No ureteral calculi are seen. No abnormality of the contrast-filled urinary bladder is seen. The abdominal aorta reveals no aneurysm. No abnormal retroperitoneal adenopathy is seen. There is no free intraperitoneal air. Minimal protrusion of intraperitoneal fat into the subcutaneous fat at the level of the umbilicus is seen on midline sagittal image #98. The remainder of the anterior abdominal wall appears unremarkable. I again see surgical clips within the upper right hemipelvis, perhaps due to prior appendectomy. This is unchanged. The bowel is not obstructed. No definite bowel wall thickening is seen, particularly within the right colon to suggest colitis. The uterus is anteflexed. Both ovaries are identified. There is a suggestion of a 1.4 cm in diameter round follicle within the right ovary on coronal image #91. No enlarged pelvic lymph nodes are seen. There is no free intraperineal fluid. The deep pelvic sidewalls appear unremarkable. The inguinal regions appear unremarkable. The skeleton reveals no acute fracture or aggressive bone lesion. Impression: 1. There appears to be moderate diffuse hepatic steatosis. This is not appreciated on the prior CT study from 10/20/2018. 2. 2 prior tiny calcifications overlying the right kidney are not able to be seen on the current post-IV contrast study. However, I see no renal mass or evidence of hydronephrosis or obstructive uropathy. No definite ureteral calculi are seen. 3. I see no bowel wall thickening to suggest colitis, particularly on the right. I see findings consistent with prior cholecystectomy and appendectomy representing no change. 4. No other acute intra-abdominal or pelvic process is seen. I again see old granulomatous disease within the spleen.
[2020-01-18 15:36] VITALS: BP 160/104; PULSE 93; O2SAT 97
== END 2020-01-18 16:09 | disposition home or self-care (01) ==
LOC: ED 13:18
DX: R10.9 Unspecified abdominal pain (principal); E88.89 Other specified metabolic disorders
CPT/HCPCS: 36000; 36415; 74177; 80053; 81001; 83690; 84703; 85025; 96374; 96375; 99284; J2270; J2405

== ENCOUNTER 2020-05-19 07:52 | Inpatient (IN) | payer MEDICAID ==
[2020-05-19] MEDS ORDERED: Hydromorphone 1 mg/ml Ampule IV ONE (08:24)
[2020-05-19] MEDS ORDERED: Zofran 4 MG/2 ML VIAL IV ONE ×2 (08:24→09:57)
[2020-05-19] MEDS ORDERED: Pepcid 20 MG VIAL IV ONE ×2 (08:24→08:37)
[2020-05-19] MEDS ORDERED: Sodium Chloride 0.9% 1000 ML 1,000 ML IV STA (08:24)
--- NOTE | 2020-05-19 08:24 | ERPHSYRPT ---
- History of Present Illness Time Seen by Provider: 05/19/20 08:10 Historian: patient Patient Subjective Stated Complaint: right flank and abdominal pain with vomiting for the past 3 days Triage Nursing Assessment: Pt came to the ER by herself but is on his way, pain began 3 days ago to the right flank and has radiated to her RUQ, pt has pain with palpatation to both upper quadrants and the right flank, bowel sounds heard in all 4 quadrants, abdomen is distended, rates pain 9/10, less urination than normal, denies pain when urinating, hypertensive, tachycardic Physician History: This is a 29-year-old white female who is had a cholecystectomy and appendectomy in the past and presents with a 3-day history of right flank pain and right- sided abdominal pain. She is had associated nausea and vomiting. She has had multiple episodes of vomiting. She denies diarrhea. She denies vaginal discharge. Patient denies chest pain and she denies shortness of breath. Patient has a history of kidney stones in the past. Patient has a history of endometriosis. Patient also has a history of anxiety, depression and panic disorder. Timing/Duration: day(s) (3) Quality: sharpness, stabbing Abdominal Pain Onset Location: RUQ, RLQ, flank (Right) Severity of Pain-Max: moderate Severity of Pain-Current: moderate Modifying Factors: Improves With: vomiting Associated Symptoms: loss of appetite, nausea, vomiting, No chest pain, No diarrhea Previous symptoms: no prior history Allergies/Adverse Reactions: Penicillins Adverse Reaction (Mild, Verified 05/19/20 08:10) pt states she is not had problems with antibitics related to pcn as an adult Home Medications: No Reportable Medications [No Reported Medications] 05/19/20 [History] Hx Tetanus, Diphtheria Vaccination/Date Given: Yes Hx Influenza Vaccination/Date Given: Yes Hx Pneumococcal Vaccination/Date Given: No Travel Risk - International Travel Have you traveled outside of the country in past 3 weeks: No - Coronavirus Screening Are you exhibiting any of the following symptoms?: Yes Close contact with a COVID-19 positive Pt in past 14-21 Days: No - Review of Systems Constitutional: No Symptoms Eyes: No Symptoms Ears, Nose, & Throat: No Symptoms Respiratory: No Symptoms Cardiac: No Symptoms Abdominal/Gastrointestinal: Abdominal Pain, Nausea, Vomiting, No Diarrhea, No Constipation Genitourinary Symptoms: Flank Pain (Right side) Musculoskeletal: No Symptoms Skin: No Symptoms Neurological: No Symptoms Psychological: No Symptoms Endocrine: No Symptoms Hematologic/Lymphatic: No Symptoms Immunological/Allergic: No Symptoms All Other Systems: Reviewed and Negative - Past Medical History Pertinent Past Medical History: Yes Neurological History: No Pertinent History ENT History: No Pertinent History Cardiac History: No Pertinent History, Hypertension Respiratory History: No Pertinent History Endocrine Medical History: No Pertinent History Musculoskeletal History: No Pertinent History GI Medical History: Gallbladder Disease, Other History: Other Psycho-Social History: Anxiety, Depression, Panic Disorder Female Reproductive Disorders: Endometriosis Other Medical History: abn pap smear, endometriosis r/o with laparoscopy , PID. being seen for chronic pelvic pain,. pt states she has had 3 head injuries - Past Surgical History Past Surgical History: Yes Neuro Surgical History: No Pertinent History Cardiac: No Pertinent History Respiratory: No Pertinent History Gastrointestinal: Appendectomy, Cholecystectomy Genitourinary: No Pertinent History Musculoskeletal: No Pertinent History Female Surgical History: No Pertinent History Other Surgical History: exploratory laparoscopy per Dr Hidalgo 2014- negative - Social History Smoking Status: Current every day smoker How long have you smoked: 3 Exposure to second hand smoke: Yes Alcohol Use: Socially Drug Use: none Patient Lives Alone: No Significant Family History: no pertinent family hx - Female History Hx Last Menstrual Period: 05/14/2020 Hx Now: No - Nursing Vital Signs Nursing Vital Signs: Initial Vital Signs Temperature 98.0 F 05/19/20 07:57 Pulse Rate 121 H 05/19/20 07:57 Blood Pressure 180/114 05/19/20 07:57 O2 Sat by Pulse Oximetry 99 05/19/20 07:57 Pain Scale Pain Intensity 4 - Physical Exam General Appearance: mild distress, alert, anxiety Eye Exam: PERRL/EOMI, eyes nml inspection Ears, Nose, Throat Exam: normal ENT inspection, moist mucous membranes Neck Exam: normal inspection, non-tender, supple, full range of motion Respiratory Exam: normal breath sounds, lungs clear, airway intact, No chest tenderness, No respiratory distress Cardiovascular Exam: regular rate/rhythm, normal heart sounds, normal peripheral pulses Gastrointestinal/Abdomen Exam: soft, normal bowel sounds, tenderness (Generali zed), guarding, No rebound Pelvic Exam: not done Rectal Exam: not done Back Exam: normal inspection, normal range of motion, CVA tenderness (Right side), No vertebral tenderness Extremity Exam: normal inspection, normal range of motion, pelvis stable Neurologic Exam: alert, oriented x 3, cooperative, quality process lead II-XII nml as tested, nml cerebellar function, nml station & gait, sensation nml Skin Exam: normal color, warm, dry Lymphatic Exam: No adenopathy SpO2 Interpretation: normal SpO2: 99 O2 Delivery: Room Air - Course Nursing assessment & vital signs reviewed: Yes Ordered Tests: Active Orders 24 hr Category Date Time Status IV Insertion STAT Care 05/19/20 08:24 Active ABDOMEN AND PELVIS W/0 CONTRAS [CT] Stat Exams 05/19/20 08:37 Taken AMYLASE Stat Lab 05/19/20 08:24 Results CBC W DIFF Stat Lab 05/19/20 08:24 Completed CMP Stat Lab 05/19/20 08:24 Results CULTURE,URINE Stat Lab 05/19/20 08:30 Received HCG,QUALITATIVE URINE Stat Lab 05/19/20 08:30 Completed LIPASE Stat Lab 05/19/20 08:24 Results Lactic Acid Stat Lab 05/19/20 08:24 Completed MAG [MAGNESIUM] Stat Lab 05/19/20 09:40 Ordered PROTIME WITH INR Stat Lab 05/19/20 08:24 Completed UA W/RFX UR CULTURE Stat Lab 05/19/20 08:30 Completed Transfer Order Routine Transfer 05/19/20 Ordered Medication Summary Generic Name Dose Route Start Last Admin Trade Name Freq PRN Reason Stop Dose Admin Potassium Chloride 20 meq in 100 mls @ 50 mls/hr 05/19/20 09:13 05/19/20 09:16 Potassium Chloride 20 Meq In Water 100ml IV 05/19/20 11:12 50 mls/hr STAT ONE Administration Discontinued Medications Generic Name Dose Route Start Last Admin Trade Name Freq PRN Reason Stop Dose Admin Famotidine 20 mg 05/19/20 08:24 05/19/20 08:42 Pepcid 20 Mg Vial IV 05/19/20 08:25 20 mg STAT ONE Administration Famotidine Confirm 05/19/20 08:37 Pepcid 20 Mg Vial Administered 05/19/20 08:38 Dose 20 mg IV .STK-MED ONE Hydromorphone HCl 1 mg 05/19/20 08:24 05/19/20 08:42 Hydromorphone 1 Mg/Ml Ampule IV 05/19/20 08:25 1 mg STAT ONE Administration Hydromorphone HCl Confirm 05/19/20 08:37 Hydromorphone 1 Mg/Ml Ampule Administered 05/19/20 08:38 Dose 1 mg .ROUTE .STK-MED ONE Sodium Chloride 1,000 mls @ 999 mls/hr 05/19/20 08:24 05/19/20 08:42 Sodium Chloride 0.9% 1000 Ml IV 05/19/20 09:24 999 mls/hr .Q1H1M STA Administration Sodium Chloride Confirm 05/19/20 08:37 Sodium Chloride 0.9% 1000 Ml Administered 05/19/20 08:38 Dose 1,000 mls @ ud .ROUTE .STK-MED ONE Potassium Chloride Confirm 05/19/20 09:12 Potassium Chloride 20 Meq In Water 100ml Administered 05/19/20 09:13 Dose 100 mls @ ud IV .STK-MED ONE Ondansetron HCl 4 mg 05/19/20 08:24 05/19/20 08:42 Zofran 4 Mg/2 Ml Vial IV 05/19/20 08:25 4 mg STAT ONE Administration Ondansetron HCl Confirm 05/19/20 08:36 Zofran 4 Mg/2 Ml Vial Administered 05/19/20 08:37 Dose 4 mg .ROUTE .STK-MED ONE Lab/Rad Data: Laboratory Result Diagrams 05/19/20 08:24 05/19/20 08:24 Laboratory Results 05/19/20 05/19/20 05/19/20 Range/Units 08:30 08:30 08:24 WBC (4.0-10.5) K/mm3 RBC (4.1-5.4) M/mm3 Hgb (12.0-16.0) gm/dl Hct (35-47) % MCV (78-100) fl MCH (26-32) pg MCHC (32-36) g/dl RDW (11.5-14.0) % Plt Count (150-450) K/mm3 MPV (7.5-11.0) fl Gran % (36.0-66.0) % Eos # (Auto) (0-0.5) Absolute Lymphs (auto) (1.0-4.6) Absolute Monos (auto) (0.0-1.3) Lymphocytes % (24.0-44.0) % Monocytes % (0.0-12.0) % Eosinophils % (0.00-5.0) % Basophils % (0.0-0.4) % Absolute Granulocytes (1.4-6.9) Basophils # (0-0.4) PT 12.7 H (9.95-12.35) SECONDS INR 1.12 (0.8-3.0) Sodium (137-145) mmol/L Potassium (3.5-5.1) mmol/L Chloride (98-107) mmol/L Carbon Dioxide (22-30) mmol/L Anion Gap (5-15) MEQ/L BUN (7-17) mg/dL Creatinine (0.52-1.04) mg/dL Estimated GFR ML/MIN Glucose (74-106) mg/dL Lactic Acid (0.4-2.0) Calcium (8.4-10.2) mg/dL Total Bilirubin (0.2-1.3) mg/dL AST (14-36) U/L ALT (0-35) U/L Alkaline Phosphatase (38-126) U/L Serum Total Protein (6.3-8.2) g/dL Albumin (3.5-5.0) g/dL Amylase (30-110) U/L Lipase Urine Color ALLYN (YELLOW) Urine Appearance SLIGHTLY CLOUDY (CLEAR) Urine pH 6.0 (5-6) Ur Specific [place] 1.022 (1.005-1.025) Urine Protein >=500 (Negative) Urine Ketones NEGATIVE (NEGATIVE) Urine Blood MODERATE (0-5) [place]/ul Urine Nitrite NEGATIVE (NEGATIVE) Urine Bilirubin SMALL (NEGATIVE) Urine Urobilinogen 4 (0-1) mg/dL Ur Leukocyte Esterase NEGATIVE (NEGATIVE) Urine WBC (Auto) 16-25 (0-5) /HPF Urine RBC (Auto) 6-10 (0-2) /HPF U Epithel Cells (Auto) RARE (FEW) /HPF Urine Bacteria (Auto) FEW (NEGATIVE) /HPF Urine Mucus (Auto) SLIGHT (NEGATIVE) /HPF Urine Culture Reflexed YES (NO) Urine Glucose NEGATIVE (NEGATIVE) mg/dL Urine HCG, Qual NEGATIVE (Negative) 05/19/20 05/19/2020 Range/Units 08:24 08:24 08:24 WBC 13.0 H (4.0-10.5) K/mm3 RBC 4.07 L (4.1-5.4) M/mm3 Hgb 14.1 (12.0-16.0) gm/dl Hct 41.2 (35-47) % MCV 101.2 H (78-100) fl MCH 34.6 H (26-32) pg MCHC 34.2 (32-36) g/dl RDW 15.0 H (11.5-14.0) % Plt Count 173 (150-450) K/mm3 MPV 11.8 H (7.5-11.0) fl Gran % 84.0 H (36.0-66.0) % Eos # (Auto) 0.11 (0-0.5) Absolute Lymphs (auto) 1.33 (1.0-4.6) Absolute Monos (auto) 0.62 (0.0-1.3) Lymphocytes % 10.2 L (24.0-44.0) % Monocytes % 4.8 (0.0-12.0) % Eosinophils % 0.8 (0.00-5.0) % Basophils % 0.2 (0.0-0.4) % Absolute Granulocytes 10.94 H (1.4-6.9) Basophils # 0.03 (0-0.4) PT (9.95-12.35) SECONDS INR (0.8-3.0) Sodium 140 (137-145) mmol/L Potassium 2.3 L* (3.5-5.1) mmol/L Chloride 104 (98-107) mmol/L Carbon Dioxide 25 (22-30) mmol/L Anion Gap 12.9 (5-15) MEQ/L BUN 6 L (7-17) mg/dL Creatinine 0.38 L (0.52-1.04) mg/dL Estimated GFR > 60.0 ML/MIN Glucose 147 H (74-106) mg/dL Lactic Acid 2.0 (0.4-2.0) Calcium 9.1 (8.4-10.2) mg/dL Total Bilirubin 1.80 H (0.2-1.3) mg/dL AST 93 H (14-36) U/L ALT 71 H (0-35) U/L Alkaline Phosphatase 110 (38-126) U/L Serum Total Protein 7.8 (6.3-8.2) g/dL Albumin 4.2 (3.5-5.0) g/dL Amylase 754 H (30-110) U/L Lipase Pending Urine Color (YELLOW) Urine Appearance (CLEAR) Urine pH (5-6) Ur Specific [place] (1.005-1.025) Urine Protein (Negative) Urine Ketones (NEGATIVE) Urine Blood (0-5) [place]/ul Urine Nitrite (NEGATIVE) Urine Bilirubin (NEGATIVE) Urine Urobilinogen (0-1) mg/dL Ur Leukocyte Esterase (NEGATIVE) Urine WBC (Auto) (0-5) /HPF Urine RBC (Auto) (0-2) /HPF U Epithel Cells (Auto) (FEW) /HPF Urine Bacteria (Auto) (NEGATIVE) /HPF Urine Mucus (Auto) (NEGATIVE) /HPF Urine Culture Reflexed (NO) Urine Glucose (NEGATIVE) mg/dL Urine HCG, Qual (Negative) - Progress Progress: improved, pain not gone completely, re-examined Progress Note: 05/19/20 09:23 The CAT scan of the abdomen and pelvis (noncontrast) reveals punctate nonobstructing renal calculi bilaterally. There is enlargement of the head of the proximal body of the pancreas with associated inflammatory fat stranding's. This is worrisome for pancreatitis. There is also some inflammatory fat stranding surrounding the adjacent duodenum. Medical decision making: This patient has clinical evidence, radiographic evidence and laboratory data to support the diagnosis of acute pancreatitis. She has been vomiting as well and has hypokalemia. Patient requires intravenous hydration, pain control and antiemetics. She also needs infusion of potassium. I asked the patient if she has recently been consuming alcohol. She did admit to having acute binge on Wednesday night into morning of significant alcohol ingestion. We will discuss with Dr. Paris regarding admission and the above treatment plan. 05/19/20 09:[address] Paris regarding admitting this patient. I reviewed the patient history, condition, laboratory results with her. She agrees to admit this patient with the above-stated treatment plan. Discussed with : Nicole Counseled pt/family regarding: lab results, diagnosis, rad results - Departure Departure Disposition: In-patient Admission Clinical Impression: Acute pancreatitis, Hypokalemia Condition: Stable Critical Care Time: No Referrals: TAMELA KHAN [Primary Care Provider] -
[2020-05-19 08:33] LABS: Absolute Neutrophil Ct (ANC) 10.94 (1.4-6.9); BASOPHIL % 0.2 % (0.0-0.4); Basophil (Absolute #) 0.03 (0-0.4); Eosinophil % 0.8 % (0.00-5.0); Eosinophil (Absolute #) 0.11 (0-0.5); Hematocrit 41.2 % (35-47); Hemoglobin 14.1 gm/dl (12.0-16.0); Lymphocyte (Absolute #) 1.33 (1.0-4.6); Lymphocytes % 10.2 % (24.0-44.0); Mean Cell Volume 101.2 fl (78-100); Mean Corpuscular Hemoglobin 34.6 pg (26-32); Mean Corpuscular Hgb Concent. 34.2 g/dl (32-36); Mean Platelet Volume 11.8 fl (7.5-11.0); Monocyte (Absolute #) 0.62 (0.0-1.3); Monocytes % 4.8 % (0.0-12.0); Platelet Count 173 K/mm3 (150-450); Red Blood Count 4.07 M/mm3 (4.1-5.4)
[2020-05-19] MEDS ORDERED: Zofran 4 MG/2 ML VIAL ONE ×2 (08:36→10:00)
[2020-05-19] MEDS ORDERED: Sodium Chloride 0.9% 1000 ML 1,000 ML ONE (08:37)
[2020-05-19] MEDS ORDERED: Hydromorphone 1 mg/ml Ampule ONE (08:37)
[2020-05-19 08:52] LABS: Appearance SLIGHTLY CLOUDY (CLEAR); Bacteria FEW /HPF (NEGATIVE); Bilirubin SMALL (NEGATIVE); Blood MODERATE Ery/ul (0-5); Epithelial Cells RARE /HPF (FEW); Glucose NEGATIVE (NEGATIVE); Ketones NEGATIVE (NEGATIVE); Leukocyte Esterase NEGATIVE (NEGATIVE); Mucus SLIGHT /HPF (NEGATIVE); Nitrite NEGATIVE (NEGATIVE); Protein,Urine Dip >=500 (Negative); Specific Gravity 1.022 (1.005-1.025); Urobilinogen 4 mg/dL (0-1)
[2020-05-19 08:55] LABS: INR 1.12 (0.8-3.0); PROTIME 12.7 SECONDS (9.95-12.35)
[2020-05-19 08:59] LABS: ALBUMIN 4.2 g/dL (3.5-5.0); ALKALINE PHOSPHATASE 110 U/L (38-126); AMYLASE 754 U/L (30-110); ANION GAP 12.9 MEQ/L (5-15); BLOOD UREA NITROGEN 6 mg/dL (7-17); CHLORIDE 104 mmol/L (98-107); Calcium 9.1 mg/dL (8.4-10.2); Carbon Dioxide 25 mmol/L (22-30); Creatinine 1 0.38 mg/dL (0.52-1.04); Glucose 147 mg/dL (74-106); SGOT/AST 93 U/L (14-36); SGPT/ALT 71 U/L (0-35); SODIUM 140 mmol/L (137-145); Total Protein 7.8 g/dL (6.3-8.2)
[2020-05-19 09:11] LABS: Potassium 2.3 mmol/L (3.5-5.1)
[2020-05-19] MEDS ORDERED: POTASSIUM CHLORIDE 20 mEq IN WATER 100ML 100 ML IV ONE (09:12)
[2020-05-19] MEDS ORDERED: POTASSIUM CHLORIDE 20 mEq IN WATER 100ML 20 MEQ/100 ML BAG IV ONE ×2 (09:13→16:00)
[2020-05-19 09:56] LABS: LIPASE 8174 U/L (23-300)
[2020-05-19] MEDS ORDERED: TYLENOL 325 MG PO PRN (10:16)
[2020-05-19] MEDS ORDERED: Magnesium 1 Gm / 100 Ml D5W*** 100 ML IV ONE (10:20)
[2020-05-19] MEDS: Pepcid 20 MG VIAL IV SCH (10:35)
[2020-05-19] MEDS: Sodium Chloride 0.9% 1000 ML 1,000 ML IV SCH ×2 (10:42→18:09)
[2020-05-19] MEDS ORDERED: DILAUDID 2 MG INJECTION IV PRN (10:56)
[2020-05-19] MEDS: DILAUDID 2 MG INJECTION IV PRN ×3 (14:39→21:41)
[2020-05-19] MEDS: Nicoderm CQ 21 MG TOP SCH (15:59)
--- NOTE | 2020-05-19 19:58 | XRAY ---
Indication: Right flank pain and dark urine. History of stones. Multiple contiguous axial images obtained through the abdomen and pelvis without contrast using renal stone protocol Comparison: January 18, 2020. Lung bases again demonstrates bilateral atelectasis/scarring and left lower lobe calcified granulomas. No infiltrate or effusion. Heart is not enlarged. Nonobstructing punctate calculi bilaterally, obscured on previous contrasted exam. No hydronephrosis, hydroureter, or evidence for obstructive uropathy. Head and uncinate portion of the pancreas appears prominent/edematous with peripancreatic stranding favoring pancreatitis. Adjacent duodenum demonstrates reactive wall thickening. No free fluid/air. Noncontrasted stomach and bowel loops appear nonobstructed. Stable appendectomy, cholecystectomy, fatty hepatomegaly, splenomegaly, and calcified splenic granulomas. New tampon in situ. Remaining adrenal glands, bladder, uterus, and aorta unremarkable for noncontrast exam. Osseous structures intact. Impression: 1. Nonobstructing bilateral renal micro-calculi. 2. New pancreatitis with reactive duodenal wall thickening. 3. Stable fatty hepatomegaly, splenomegaly, and evidence for old granulomatous disease. Comment: Preliminary interpretation was made by [facility]. No critical discrepancy.
[2020-05-19] MEDS: Zofran 4 MG/2 ML VIAL IV PRN (21:43)
[2020-05-19] MEDS: POTASSIUM CHLORIDE 20 mEq IN WATER 100ML 20 MEQ/100 ML BAG IV SCH (23:59)
[2020-05-20] MEDS: Sodium Chloride 0.9% 1000 ML 1,000 ML IV SCH ×2 (00:02→07:06)
[2020-05-20] MEDS: DILAUDID 2 MG INJECTION IV PRN ×7 (00:50→23:36)
[2020-05-20] MEDS: POTASSIUM CHLORIDE 20 mEq IN WATER 100ML 20 MEQ/100 ML BAG IV SCH ×3 (04:02→09:20)
[2020-05-20 05:19] LABS: Absolute Neutrophil Ct (ANC) 6.88 (1.4-6.9); BASOPHIL % 0.2 % (0.0-0.4); Basophil (Absolute #) 0.02 (0-0.4); Eosinophil % 1.9 % (0.00-5.0); Eosinophil (Absolute #) 0.18 (0-0.5); Hematocrit 37.7 % (35-47); Hemoglobin 12.6 gm/dl (12.0-16.0); Lymphocyte (Absolute #) 1.64 (1.0-4.6); Lymphocytes % 17.7 % (24.0-44.0); Mean Cell Volume 104.4 fl (78-100); Mean Corpuscular Hemoglobin 34.9 pg (26-32); Mean Corpuscular Hgb Concent. 33.4 g/dl (32-36); Monocyte (Absolute #) 0.53 (0.0-1.3); Monocytes % 5.7 % (0.0-12.0); Neutrophil % 74.5 % (36.0-66.0); Platelet Count 133 K/mm3 (150-450); Red Blood Count 3.61 M/mm3 (4.1-5.4); Red Cell Distribution Width 14.9 % (11.5-14.0); White Blood Count 9.3 K/mm3 (4.0-10.5)
[2020-05-20 05:29] LABS: AMYLASE 175 U/L (30-110); LIPASE 650 U/L (23-300)
[2020-05-20 05:30] LABS: ALBUMIN 3.3 g/dL (3.5-5.0); ALKALINE PHOSPHATASE 95 U/L (38-126); ANION GAP 7.1 MEQ/L (5-15); BLOOD UREA NITROGEN 3 mg/dL (7-17); CHLORIDE 107 mmol/L (98-107); Carbon Dioxide 25 mmol/L (22-30); Creatinine 1 0.34 mg/dL (0.52-1.04); Glucose 86 mg/dL (74-106); SGOT/AST 60 U/L (14-36); SGPT/ALT 50 U/L (0-35); SODIUM 136 mmol/L (137-145); Total Protein 6.3 g/dL (6.3-8.2)
[2020-05-20 05:32] LABS: Potassium 2.9 mmol/L (3.5-5.1)
[2020-05-20 06:02] LABS: Calcium 7.3 mg/dL (8.4-10.2)
[2020-05-20] MEDS: Zofran 4 MG/2 ML VIAL IV PRN ×2 (07:09→19:44)
[2020-05-20] MEDS ORDERED: POTASSIUM CHLORIDE 20 mEq IN WATER 100ML 20 MEQ/100 ML BAG IV ONE (09:16)
[2020-05-20] MEDS: Pepcid 20 MG VIAL IV SCH (09:20)
[2020-05-20] MEDS: OXYCODONE-ACETAMINOPHEN 10-325 PO PRN ×3 (09:23→21:12)
[2020-05-20] MEDS: PROTONIX 40 MG IV IV SCH (09:29)
[2020-05-20] MEDS ORDERED: D5w/0.45NS W/ 40MEQ KCl 1000 Ml 1,000 ML IV SCH (09:30)
[2020-05-20] MEDS: Nicoderm CQ 21 MG TOP SCH (14:19)
[2020-05-20] MEDS: D5W/0.45NS W/ 20mEq KCl 1000 ML 1,000 ML IV SCH (21:12)
[2020-05-21] MEDS: OXYCODONE-ACETAMINOPHEN 10-325 PO PRN ×5 (04:22→21:36)
[2020-05-21 04:27] LABS: Absolute Neutrophil Ct (ANC) 4.69 (1.4-6.9); BASOPHIL % 0.3 % (0.0-0.4); Basophil (Absolute #) 0.02 (0-0.4); Eosinophil % 2.6 % (0.00-5.0); Eosinophil (Absolute #) 0.19 (0-0.5); Hematocrit 37.1 % (35-47); Hemoglobin 12.2 gm/dl (12.0-16.0); Lymphocyte (Absolute #) 1.88 (1.0-4.6); Lymphocytes % 26.2 % (24.0-44.0); Mean Cell Volume 105.4 fl (78-100); Mean Corpuscular Hemoglobin 34.7 pg (26-32); Mean Corpuscular Hgb Concent. 32.9 g/dl (32-36); Mean Platelet Volume 11.7 fl (7.5-11.0); Monocytes % 5.6 % (0.0-12.0); Neutrophil % 65.3 % (36.0-66.0); Platelet Count 149 K/mm3 (150-450); Red Blood Count 3.52 M/mm3 (4.1-5.4); Red Cell Distribution Width 14.7 % (11.5-14.0); White Blood Count 7.2 K/mm3 (4.0-10.5)
[2020-05-21 04:38] LABS: ALBUMIN 3.3 g/dL (3.5-5.0); ALKALINE PHOSPHATASE 102 U/L (38-126); ANION GAP 5.9 MEQ/L (5-15); CHLORIDE 108 mmol/L (98-107); Calcium 7.9 mg/dL (8.4-10.2); Carbon Dioxide 26 mmol/L (22-30); Creatinine 1 0.37 mg/dL (0.52-1.04); Glucose 109 mg/dL (74-106); Potassium 3.4 mmol/L (3.5-5.1); SGOT/AST 54 U/L (14-36); SGPT/ALT 41 U/L (0-35); SODIUM 136 mmol/L (137-145); Total Protein 6.3 g/dL (6.3-8.2)
[2020-05-21 04:41] LABS: BLOOD UREA NITROGEN < 2 mg/dL (7-17)
[2020-05-21] MEDS: POTASSIUM CHLORIDE 20 mEq IN WATER 100ML 20 MEQ/100 ML BAG IV SCH ×2 (05:55→10:04)
[2020-05-21] MEDS: DILAUDID 2 MG INJECTION IV PRN ×4 (07:01→20:53)
[2020-05-21] MEDS: Zofran 4 MG/2 ML VIAL IV PRN ×2 (07:01→14:53)
[2020-05-21] MEDS: D5W/0.45NS W/ 20mEq KCl 1000 ML 1,000 ML IV SCH ×2 (07:56→18:15)
[2020-05-21] MEDS: Pepcid 20 MG VIAL IV SCH (07:59)
[2020-05-21] MEDS: PROTONIX 40 MG IV IV SCH (08:02)
[2020-05-21 08:08] LABS: AMYLASE 90 U/L (30-110); LIPASE 395 U/L (23-300)
[2020-05-21] MEDS: KEFLEX 500 MG PO SCH ×4 (08:42→21:33)
[2020-05-21] MEDS: Nicoderm CQ 21 MG TOP SCH (11:56)
[2020-05-22] MEDS: D5W/0.45NS W/ 20mEq KCl 1000 ML 1,000 ML IV SCH ×3 (04:05→23:41)
[2020-05-22] MEDS: OXYCODONE-ACETAMINOPHEN 10-325 PO PRN ×5 (04:46→23:26)
[2020-05-22 04:52] LABS: Absolute Neutrophil Ct (ANC) 3.12 (1.4-6.9); BASOPHIL % 0.6 % (0.0-0.4); Basophil (Absolute #) 0.03 (0-0.4); Eosinophil % 2.8 % (0.00-5.0); Eosinophil (Absolute #) 0.15 (0-0.5); Hematocrit 36.7 % (35-47); Hemoglobin 12.4 gm/dl (12.0-16.0); Lymphocyte (Absolute #) 1.73 (1.0-4.6); Lymphocytes % 32.2 % (24.0-44.0); Mean Cell Volume 104.9 fl (78-100); Mean Corpuscular Hemoglobin 35.4 pg (26-32); Mean Corpuscular Hgb Concent. 33.8 g/dl (32-36); Mean Platelet Volume 11.5 fl (7.5-11.0); Monocyte (Absolute #) 0.35 (0.0-1.3); Monocytes % 6.5 % (0.0-12.0); Neutrophil % 57.9 % (36.0-66.0); Platelet Count 175 K/mm3 (150-450); Red Cell Distribution Width 14.7 % (11.5-14.0); White Blood Count 5.4 K/mm3 (4.0-10.5)
[2020-05-22 05:02] LABS: ALBUMIN 3.4 g/dL (3.5-5.0); ALKALINE PHOSPHATASE 100 U/L (38-126); AMYLASE 107 U/L (30-110); ANION GAP 6.8 MEQ/L (5-15); CHLORIDE 107 mmol/L (98-107); Calcium 8.2 mg/dL (8.4-10.2); Carbon Dioxide 27 mmol/L (22-30); Creatinine 1 0.36 mg/dL (0.52-1.04); Glucose 104 mg/dL (74-106); LIPASE 460 U/L (23-300); Potassium 3.5 mmol/L (3.5-5.1); SGOT/AST 67 U/L (14-36); SGPT/ALT 42 U/L (0-35); SODIUM 137 mmol/L (137-145); Total Protein 6.5 g/dL (6.3-8.2)
[2020-05-22 05:10] LABS: BLOOD UREA NITROGEN < 2 mg/dL (7-17)
[2020-05-22] MEDS: DILAUDID 2 MG INJECTION IV PRN ×4 (06:40→21:51)
[2020-05-22] MEDS ORDERED: Cardizem CD 180 MG ONE (07:31)
[2020-05-22] MEDS: Pepcid 20 MG VIAL IV SCH (09:39)
[2020-05-22] MEDS: PROTONIX 40 MG IV IV SCH (09:39)
[2020-05-22] MEDS: KEFLEX 500 MG PO SCH ×4 (09:40→21:51)
[2020-05-22] MEDS ORDERED: Cardizem CD 180 MG PO SCH (10:00)
[2020-05-22] MEDS: Nicoderm CQ 21 MG TOP SCH (14:05)
[2020-05-22] MEDS ORDERED: Cardizem CD 180 MG PO ONE (14:52)
[2020-05-22] MEDS: Zofran 4 MG/2 ML VIAL IV PRN (17:21)
[2020-05-22] MEDS ORDERED: Apresoline 25 MG TABLET ONE (18:03)
[2020-05-22] MEDS: Apresoline 25 MG TABLET PO PRN (18:12)
[2020-05-23] MEDS ORDERED: Apresoline 25 MG TABLET ONE (00:22)
[2020-05-23] MEDS: Apresoline 25 MG TABLET PO PRN (00:24)
[2020-05-23] MEDS: Apresoline 25 MG TABLET PO SCH ×5 (00:36→23:36)
[2020-05-23] MEDS: OXYCODONE-ACETAMINOPHEN 10-325 PO PRN ×5 (03:36→21:21)
[2020-05-23 05:13] LABS: Hematocrit 39.3 % (35-47); Hemoglobin 12.7 gm/dl (12.0-16.0); Mean Cell Volume 106.5 fl (78-100); Mean Corpuscular Hemoglobin 34.4 pg (26-32); Mean Corpuscular Hgb Concent. 32.3 g/dl (32-36); Mean Platelet Volume 11.1 fl (7.5-11.0); Platelet Count 192 K/mm3 (150-450); Red Blood Count 3.69 M/mm3 (4.1-5.4); Red Cell Distribution Width 14.5 % (11.5-14.0); White Blood Count 5.7 K/mm3 (4.0-10.5)
[2020-05-23 05:31] LABS: ALBUMIN 3.5 g/dL (3.5-5.0); ALKALINE PHOSPHATASE 93 U/L (38-126); ANION GAP 7.9 MEQ/L (5-15); CHLORIDE 105 mmol/L (98-107); Calcium 8.5 mg/dL (8.4-10.2); Carbon Dioxide 27 mmol/L (22-30); Creatinine 1 0.38 mg/dL (0.52-1.04); Glucose 115 mg/dL (74-106); LIPASE 552 U/L (23-300); Potassium 3.5 mmol/L (3.5-5.1); SGOT/AST 72 U/L (14-36); SGPT/ALT 44 U/L (0-35); SODIUM 137 mmol/L (137-145); Total Protein 6.7 g/dL (6.3-8.2)
[2020-05-23 05:36] LABS: BLOOD UREA NITROGEN < 2 mg/dL (7-17)
[2020-05-23] MEDS: Pepcid 20 MG VIAL IV SCH (09:30)
[2020-05-23] MEDS: KEFLEX 500 MG PO SCH ×4 (09:30→21:11)
[2020-05-23] MEDS: PROTONIX 40 MG IV IV SCH (09:30)
[2020-05-23] MEDS: D5W/0.45NS W/ 20mEq KCl 1000 ML 1,000 ML IV SCH ×2 (09:31→21:21)
[2020-05-23] MEDS: Cardizem CD 180 MG PO SCH (09:37)
--- NOTE | 2020-05-23 09:40 | XRAY ---
Indication: Pancreatitis. Elevated lipase. Multiple contiguous axial images obtained through the abdomen and pelvis using 80 cc Isovue 370 contrast only. Comparison: May 19, 2020. Lung bases demonstrates worsening bibasilar dependent atelectasis with now tiny effusions and subsegmental atelectasis. Stable peripheral left lower lobe calcified granuloma. Heart is not enlarged. Noncontrasted stomach and bowel loops remain nonobstructed. Previous pancreatitis involving the head of the pancreas and reactive duodenitis has resolved. No free fluid/air. Stable appendectomy, cholecystectomy, fatty hepatomegaly, splenomegaly, and calcified splenic granulomas. Remaining adrenal glands, kidneys, ureters, bladder, uterus, and aorta appear normal in CT appearance and attenuation. No pathologic retroperitoneal lymphadenopathy. Impression: 1. Previous pancreatic head pancreatitis with reactive duodenitis has resolved. 2. Worsening bibasilar atelectasis with new tiny effusions. 3. Again incidental fatty hepatomegaly, splenomegaly, and evidence for old granulomatous disease.
[2020-05-23] MEDS: DILAUDID 2 MG INJECTION IV PRN ×3 (10:03→20:23)
[2020-05-23] MEDS: Nicoderm CQ 21 MG TOP SCH (16:40)
[2020-05-24] MEDS: DILAUDID 2 MG INJECTION IV PRN ×6 (00:13→23:44)
[2020-05-24] MEDS: OXYCODONE-ACETAMINOPHEN 10-325 PO PRN ×5 (02:32→21:06)
[2020-05-24 05:37] LABS: Hematocrit 39.9 % (35-47); Hemoglobin 12.9 gm/dl (12.0-16.0); Mean Corpuscular Hemoglobin 34.6 pg (26-32); Mean Corpuscular Hgb Concent. 32.3 g/dl (32-36); Platelet Count 199 K/mm3 (150-450); Red Blood Count 3.73 M/mm3 (4.1-5.4); Red Cell Distribution Width 14.6 % (11.5-14.0); White Blood Count 7.1 K/mm3 (4.0-10.5)
[2020-05-24 05:41] LABS: ALBUMIN 3.6 g/dL (3.5-5.0); ALKALINE PHOSPHATASE 92 U/L (38-126); ANION GAP 7.9 MEQ/L (5-15); CHLORIDE 105 mmol/L (98-107); Carbon Dioxide 26 mmol/L (22-30); Creatinine 1 0.37 mg/dL (0.52-1.04); Glucose 109 mg/dL (74-106); LIPASE 497 U/L (23-300); Potassium 3.4 mmol/L (3.5-5.1); SGOT/AST 56 U/L (14-36); SGPT/ALT 39 U/L (0-35); SODIUM 136 mmol/L (137-145); Total Protein 6.8 g/dL (6.3-8.2)
[2020-05-24 05:44] LABS: BLOOD UREA NITROGEN < 2 mg/dL (7-17)
[2020-05-24] MEDS: Apresoline 25 MG TABLET PO SCH ×4 (06:29→23:45)
[2020-05-24] MEDS: Pepcid 20 MG VIAL IV SCH (08:25)
[2020-05-24] MEDS: KEFLEX 500 MG PO SCH ×4 (08:25→21:06)
[2020-05-24] MEDS: Cardizem CD 180 MG PO SCH (08:25)
[2020-05-24] MEDS: PROTONIX 40 MG IV IV SCH (08:26)
[2020-05-24] MEDS ORDERED: Klor Con 10 MEQ PO SCH (08:30)
[2020-05-24] MEDS: D5W/0.45NS W/ 20mEq KCl 1000 ML 1,000 ML IV SCH ×2 (09:04→18:40)
[2020-05-24] MEDS: Nicoderm CQ 21 MG TOP SCH (15:17)
[2020-05-25] MEDS: OXYCODONE-ACETAMINOPHEN 10-325 PO PRN ×5 (01:40→21:06)
[2020-05-25] MEDS: D5W/0.45NS W/ 20mEq KCl 1000 ML 1,000 ML IV SCH ×3 (03:51→22:18)
[2020-05-25] MEDS: Apresoline 25 MG TABLET PO SCH ×3 (06:27→18:41)
[2020-05-25] MEDS: DILAUDID 2 MG INJECTION IV PRN ×5 (06:27→23:04)
[2020-05-25 07:24] LABS: ANION GAP 9.7 MEQ/L (5-15); CHLORIDE 107 mmol/L (98-107); Calcium 9.3 mg/dL (8.4-10.2); Carbon Dioxide 24 mmol/L (22-30); Creatinine 1 0.42 mg/dL (0.52-1.04); Glucose 103 mg/dL (74-106); LIPASE 552 U/L (23-300); Potassium 4.1 mmol/L (3.5-5.1); SODIUM 136 mmol/L (137-145)
[2020-05-25 07:31] LABS: BLOOD UREA NITROGEN < 2 mg/dL (7-17)
[2020-05-25] MEDS: Cardizem CD 180 MG PO SCH (08:18)
[2020-05-25] MEDS: KEFLEX 500 MG PO SCH ×4 (08:19→21:06)
[2020-05-25] MEDS: PROTONIX 40 MG IV IV SCH (08:21)
[2020-05-25] MEDS: Pepcid 20 MG VIAL IV SCH (08:21)
[2020-05-25] MEDS: Zofran 4 MG/2 ML VIAL IV PRN (08:41)
[2020-05-25] MEDS: Nicoderm CQ 21 MG TOP SCH (15:33)
[2020-05-26] MEDS: Apresoline 25 MG TABLET PO SCH ×2 (01:34→06:47)
[2020-05-26] MEDS: OXYCODONE-ACETAMINOPHEN 10-325 PO PRN ×2 (01:34→06:47)
[2020-05-26] MEDS: DILAUDID 2 MG INJECTION IV PRN (05:15)
[2020-05-26 06:05] LABS: ANION GAP 10.4 MEQ/L (5-15); CHLORIDE 106 mmol/L (98-107); Calcium 9.2 mg/dL (8.4-10.2); Carbon Dioxide 25 mmol/L (22-30); Creatinine 1 0.43 mg/dL (0.52-1.04); Glucose 120 mg/dL (74-106); LIPASE 497 U/L (23-300); SODIUM 137 mmol/L (137-145)
[2020-05-26 06:07] LABS: BLOOD UREA NITROGEN 2 mg/dL (7-17)
[2020-05-26] MEDS: D5W/0.45NS W/ 20mEq KCl 1000 ML 1,000 ML IV SCH (08:03)
--- NOTE | 2020-05-26 08:59 | PCM.DS ---
Discharge Summary Date of Admission: 05/19/20 10:10 Admitting Physician: ANNIE HUTCHISON MD Primary Care Provider: TAMELA KHAN Allergies Allergies Penicillins Adverse Reaction (Mild, Verified 05/19/20 10:43) pt states she is not had problems with antibitics related to pcn as an adult Hospital Summary - Hospital Course Hospital Course: patient was admitted with abdominal pain, found to have acute pancreatitis, also was hypertensive and off meds due to insurance reasons. she is tolerating po intake now, pain and nausea are well controlled and she is doing much better. - Vitals & Intake/Output Vital Signs: Vital Signs Temperature 97.8 F 05/26/20 07:57 Pulse Rate 87 05/26/20 07:57 Respiratory Rate 16 05/26/20 07:57 Blood Pressure 124/82 05/26/20 07:57 O2 Sat by Pulse Oximetry 97 05/26/20 07:57 Intake & Output: Intake & Output 05/23/20 05/24/20 05/25/20 05/26/20 11:59 11:59 11:59 11:59 Intake Total 2774 1612 2366 5404 Output Total 2300 2600 900 2600 Balance 474 -988 1466 2804 Weight 91.2 kg 86.9 kg 86.6 kg 86.3 kg - Lab Result Diagrams: 05/24/20 04:53 05/26/20 05:20 Lab Results-Last 24 Hrs: Lab Results-Last 24 Hours 05/26/20 Range/Units 05:20 Sodium 137 (137-145) mmol/L Potassium 4.0 (3.5-5.1) mmol/L Chloride 106 (98-107) mmol/L Carbon Dioxide 25 (22-30) mmol/L Anion Gap 10.4 (5-15) MEQ/L BUN 2 L (7-17) mg/dL Creatinine 0.43 L (0.52-1.04) mg/dL Estimated GFR > 60.0 ML/MIN Glucose 120 H (74-106) mg/dL Calcium 9.2 (8.4-10.2) mg/dL Lipase 497 H (23-300) U/L Micro Results-Entire Visit: Microbiology 05/19/20 08:30 Urine Culture - Final Urine, Void Escherichia Coli Discharge Exam General Appearance: no apparent distress Neurologic Exam: alert, oriented x 3 Respiratory Exam: normal breath sounds, lungs clear, No respiratory distress Cardiovascular Exam: regular rate/rhythm, normal heart sounds Gastrointestinal/Abdomen Exam: soft, No tenderness, No mass Extremity Exam: normal inspection, normal range of motion Skin Exam: normal color, warm, dry Final Diagnosis/Problem List - Final Discharge Diagnosis/Problem (1) Acute pancreatitis Current Visit: Yes Status: Acute Code(s): K85.90 - ACUTE PANCREATITIS WITHOUT NECROSIS OR INFECTION, UNSP (2) Hypertensive urgency Current Visit: Yes Status: Acute Code(s): I16.0 - HYPERTENSIVE URGENCY - Discharge Disposition: Home, Self-Care Condition: Stable Prescriptions: New Diltiazem HCl [Cardizem LA] 360 mg PO DAILY #30 tab.er.24h Hydralazine HCl 50 mg PO BID #60 tablet Cephalexin Mh 500 mg [Keflex 500 mg] 500 mg PO QID #20 capsule Oxycodone / APAP 10/325 mg [Oxycodone-Acetaminophen 10-325] 1 tab PO Q4H PRN PRN #30 tablet MDD 6 PRN Reason: Pain PANTOPRAZOLE 40 mg Tablet [Protonix 40MG Tablet] 40 mg PO QPM #30 tab Ondansetron ODT 4 MG [Zofran Odt 4 mg] 4 mg PO Q6H PRN PRN #20 tab.rapdis PRN Reason: Nausea Follow up with: TAMELA KHAN [Primary Care Provider] - 06/03/20 10:15 am
[2020-05-26 10:21] VITALS: BP 139/77; PULSE 97; O2SAT 98
== END 2020-05-26 10:30 | disposition home or self-care (01) | DRG 439 ==
LOC: ED 07:52 → OBSVTOIN 10:10 → MED SURG 10:10
PROVIDERS: ADMIT Family Medicine; ATTEND Family Medicine
DX: K85.90 Acute pancreatitis without necrosis or infection, unspecified (principal); N39.0 Urinary tract infection, site not specified; I16.0 Hypertensive urgency; B96.20 Unspecified Escherichia coli [E. coli] as the cause of diseases classified elsewhere; E87.6 Hypokalemia; I10 Essential (primary) hypertension; Z79.899 Other long term (current) drug therapy
CPT/HCPCS: 36000; 36415; 74176; 74177; 80048; 80053; 81001; 82150; 83605; 83690; 83735; 84132; 84703; 85025; 85027; 85610; 87077; 87086; 87186; 94762; 96360; 96365; 96374; 96375; 96376; 99284; J1170; J2405; J3475; J3480; A9270-GY

== ENCOUNTER 2020-07-13 22:22 | Emergency (ER) | payer SELFPAY ==
[2020-07-13] MEDS ORDERED: MORPHINE SULFATE 4 MG INJ IM ONE (22:49)
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
[2020-07-13] MEDS ORDERED: MORPHINE SULFATE 4 MG INJ ONE (22:54)
[2020-07-13 23:30] VITALS: BP 141/104; PULSE 111
[2020-07-13] MEDS ORDERED: NORCO 5/325 MG PO ONE (23:34)
[2020-07-13 23:35] VITALS: O2SAT 99
[2020-07-13] MEDS ORDERED: NORCO 5/325 MG ONE (23:46)
--- NOTE | 2020-07-14 07:17 | XRAY ---
Indication: Pain following fall. Comparison: None 3 view left elbow obtained. No bony, articular, or soft tissue abnormalities.
--- NOTE | 2020-07-14 07:17 | XRAY ---
Indication: Pain following fall. Comparison: None 3 view left wrist obtained. No bony, articular, or soft tissue abnormalities.
== END 2020-07-13 23:51 | disposition home or self-care (01) ==
LOC: ED 22:22
DX: S62.102A Fracture of unspecified carpal bone, left wrist, initial encounter for closed fracture (principal); V86.95XA Unspecified occupant of 3- or 4- wheeled all-terrain vehicle (ATV) injured in nontraffic accident, initial encounter; I10 Essential (primary) hypertension; M25.532 Pain in left wrist
CPT/HCPCS: 73080; 73110; 96372; 99284; J2270; A9270-GY

== ENCOUNTER 2020-08-10 13:25 | Emergency (ER) | payer OTHER ==
[2020-08-10] MEDS ORDERED: MORPHINE SULFATE 4 MG INJ IM ONE (14:11)
[2020-08-10] MEDS ORDERED: MORPHINE SULFATE 4 MG INJ ONE (14:14)
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
[2020-08-10 15:16] VITALS: BP 152/102; PULSE 105
[2020-08-10 15:22] VITALS: O2SAT 98
--- NOTE | 2020-08-10 18:07 | XRAY ---
Indication: Pain following fall. Comparison: July 30, 2020. 3 view left wrist obtained. Again no bony, articular, or soft tissue abnormalities.
== END 2020-08-10 15:28 | disposition home or self-care (01) ==
LOC: ED 13:25
DX: S63.502A Unspecified sprain of left wrist, initial encounter (principal); M25.532 Pain in left wrist; I10 Essential (primary) hypertension; W01.0XXA Fall on same level from slipping, tripping and stumbling without subsequent striking against object, initial encounter
CPT/HCPCS: 73110; 96372; 99284; A4570; J2270

== ENCOUNTER 2020-09-03 12:21 | Emergency (ER) | payer OTHER ==
[2020-09-03] MEDS ORDERED: TORAdol 30 mg Injection IV ONE (13:47)
[2020-09-03] MEDS ORDERED: Sodium Chloride 0.9% 1000 ML 1,000 ML IV STA (13:47)
[2020-09-03] MEDS ORDERED: TORAdol 30 mg Injection ONE (13:57)
[2020-09-03] MEDS ORDERED: Sodium Chloride 0.9% 1000 ML 1,000 ML ONE (13:57)
[2020-09-03] MEDS ORDERED: Zofran 4 MG/2 ML VIAL IV ONE (14:04)
[2020-09-03] MEDS ORDERED: Zofran 4 MG/2 ML VIAL ONE (14:06)
[2020-09-03 14:15] LABS: Appearance SLIGHTLY CLOUDY (CLEAR); Bacteria FEW /HPF (NEGATIVE); Bilirubin MODERATE (NEGATIVE); Blood NEGATIVE Ery/ul (0-5); Epithelial Cells RARE /HPF (FEW); Glucose NEGATIVE (NEGATIVE); Ketones TRACE (NEGATIVE); Leukocyte Esterase NEGATIVE (NEGATIVE); Mucus MODERATE /HPF (NEGATIVE); Nitrite NEGATIVE (NEGATIVE); Protein,Urine Dip 100 (Negative); Specific Gravity 1.036 (1.005-1.025); Urobilinogen 4 mg/dL (0-1)
[2020-09-03 15:15] LABS: Absolute Neutrophil Ct (ANC) 7.81 (1.4-6.9); BASOPHIL % 0.1 % (0.0-0.4); Basophil (Absolute #) 0.01 (0-0.4); Eosinophil % 0.4 % (0.00-5.0); Eosinophil (Absolute #) 0.04 (0-0.5); Hematocrit 41.5 % (35-47); Hemoglobin 13.6 gm/dl (12.0-16.0); Lymphocyte (Absolute #) 1.85 (1.0-4.6); Lymphocytes % 18.1 % (24.0-44.0); Mean Cell Volume 95.8 fl (78-100); Mean Corpuscular Hemoglobin 31.4 pg (26-32); Mean Corpuscular Hgb Concent. 32.8 g/dl (32-36); Mean Platelet Volume 11.9 fl (7.5-11.0); Monocyte (Absolute #) 0.52 (0.0-1.3); Monocytes % 5.1 % (0.0-12.0); Neutrophil % 76.3 % (36.0-66.0); Platelet Count 215 K/mm3 (150-450); Red Blood Count 4.33 M/mm3 (4.1-5.4); Red Cell Distribution Width 14.8 % (11.5-14.0); White Blood Count 10.2 K/mm3 (4.0-10.5)
[2020-09-03 15:31] LABS: ALBUMIN 4.1 g/dL (3.5-5.0); ALKALINE PHOSPHATASE 133 U/L (38-126); BLOOD UREA NITROGEN 3 mg/dL (7-17); CHLORIDE 108 mmol/L (98-107); Calcium 8.5 mg/dL (8.4-10.2); Carbon Dioxide 22 mmol/L (22-30); Creatinine 1 0.44 mg/dL (0.52-1.04); EST GLOMERULAR FILTRATION RATE > 60.0 ML/MIN; Glucose 96 mg/dL (74-106); Potassium 3.2 mmol/L (3.5-5.1); SGOT/AST 214 U/L (14-36); SGPT/ALT 119 U/L (0-35); SODIUM 139 mmol/L (137-145); Total Protein 7.5 g/dL (6.3-8.2)
[2020-09-03 16:07] VITALS: O2SAT 100
--- NOTE | 2020-09-03 16:07 | ERPHSYRPT ---
- History of Present Illness Time Seen by Provider: 09/03/20 13:15 Historian: patient Exam Limitations: no limitations Patient Subjective Stated Complaint: Pt began having right flank pain off and on 2 days ago, began vomiting yesterday, pain radiates around to her RLQ Triage Nursing Assessment: Pt drove self to the ER and her will be pic peterson her up, hypertensive, rates pain 8/10, urine tea color, denies pain with urination, pain to right flank, headache, hx of kidney stone Physician History: Patient is a 30-year-old female with a history of kidney stones presents with complaint of right flank pain that radiates into her groin area. Patient admits to hematuria. No trauma no fever. No nausea or vomiting. Symptoms are mild to moderate in intensity. Pain is intermittent. Pain is moderate in intensity. No specific worsening or improving factors. Patient voices no other complaints or concerns at this time. Timing/Duration: day(s) (2 days ago) Activities at Onset: none Quality: aching Abdominal Pain Onset Location: flank Pain Radiation: groin Severity of Pain-Max: moderate Severity of Pain-Current: mild Modifying Factors: Improves With: nothing Associated Symptoms: denies symptoms, No chest pain, No diaphoresis, No neck pain, No rash, No shortness of breath, No syncope, No testicular pain, No vomiting Previous symptoms: same symptoms as today Allergies/Adverse Reactions: Penicillins Adverse Reaction (Mild, Verified 09/03/20 13:18) pt states she is not had problems with antibitics related to pcn as an adult Home Medications: Hydrocodone/Acetaminophen [Hydrocodone-Acetamin 10-325 mg] 1 tab PO BID 09/03/20 [History] Hx Tetanus, Diphtheria Vaccination/Date Given: No (unknown) Hx Influenza Vaccination/Date Given: No Hx Pneumococcal Vaccination/Date Given: No Travel Risk - International Travel Have you traveled outside of the country in past 3 weeks: No - Coronavirus Screening Are you exhibiting any of the following symptoms?: No Close contact with a COVID-19 positive Pt in past 14-21 Days: No - Review of Systems Constitutional: No Symptoms, No Fever, No Chills Eyes: No Symptoms Ears, Nose, & Throat: No Symptoms Respiratory: No Symptoms, No Cough, No Dyspnea Cardiac: No Symptoms, No Chest Pain, No Edema, No Syncope Abdominal/Gastrointestinal: No Symptoms, No Abdominal Pain, No Nausea, No Vomiting, No Diarrhea Genitourinary Symptoms: No Symptoms, No Dysuria Musculoskeletal: No Symptoms, No Back Pain, No Neck Pain Skin: No Symptoms, No Rash Neurological: No Symptoms, No Dizziness, No Focal Weakness, No Sensory Changes Psychological: No Symptoms Endocrine: No Symptoms Hematologic/Lymphatic: No Symptoms Immunological/Allergic: No Symptoms All Other Systems: Reviewed and Negative - Past Medical History Pertinent Past Medical History: Yes Neurological History: No Pertinent History ENT History: No Pertinent History Cardiac History: Hypertension Respiratory History: No Pertinent History Endocrine Medical History: No Pertinent History Musculoskeletal History: No Pertinent History GI Medical History: Pancreatitis History: Other Psycho-Social History: Anxiety, Depression, Panic Disorder Female Reproductive Disorders: Endometriosis Other Medical History: kidney stones - Past Surgical History Past Surgical History: Yes Neuro Surgical History: No Pertinent History Cardiac: No Pertinent History Respiratory: No Pertinent History Gastrointestinal: Appendectomy, Cholecystectomy Genitourinary: No Pertinent History Musculoskeletal: No Pertinent History Female Surgical History: No Pertinent History Other Surgical History: exploratory laparoscopy per Dr Hidalgo 2014- negative - Social History Smoking Status: Current every day smoker How long have you smoked: 3 Exposure to second hand smoke: Yes Alcohol Use: Socially Drug Use: none Patient Lives Alone: No Significant Family History: no pertinent family hx - Female History Hx Now: No (tested yesterday) - Nursing Vital Signs Nursing Vital Signs: Initial Vital Signs Temperature 98.1 F 09/03/20 13:05 Pulse Rate 120 H 09/03/20 13:05 Blood Pressure 175/110 09/03/20 13:05 O2 Sat by Pulse Oximetry 100 09/03/20 13:05 Pain Scale Pain Intensity 8 - Physical Exam General Appearance: no apparent distress, alert Eye Exam: PERRL/EOMI, eyes nml inspection Ears, Nose, Throat Exam: normal ENT inspection, pharynx normal, moist mucous membranes Neck Exam: normal inspection, non-tender, supple, full range of motion Respiratory Exam: normal breath sounds, lungs clear, No respiratory distress Cardiovascular Exam: regular rate/rhythm, normal heart sounds Gastrointestinal/Abdomen Exam: soft, other (Mild right CVA. Overlying soft tissue intact. No signs of trauma.), No tenderness, No mass Back Exam: normal inspection, normal range of motion, No CVA tenderness, No vertebral tenderness Extremity Exam: normal inspection, normal range of motion, pelvis stable Neurologic Exam: alert, oriented x 3, cooperative, normal mood/affect, nml cerebellar function, sensation nml, No motor deficits Skin Exam: normal color, warm, dry Lymphatic Exam: No adenopathy SpO2 Interpretation: normal SpO2: 100 O2 Delivery: Room Air - Course Nursing assessment & vital signs reviewed: Yes - CT Exams Abdomen/Pelvis CT Interpretation: Tele-radiologist Report (No acute intra-abdominal pathology. No ureterolithiasis. + calcified granulomas, and hepatosplenomegaly observed.) Ordered Tests: Active Orders 24 hr Category Date Time Status IV Insertion STAT Care 09/03/20 13:47 Active ABDOMEN AND PELVIS W/0 CONTRAS [CT] Stat Exams 09/03/20 13:48 Completed CBC W DIFF Stat Lab 09/03/20 15:05 Completed CMP Stat Lab 09/03/20 15:05 Completed HCG,QUALITATIVE URINE Stat Lab 09/03/20 14:04 Completed UA W/RFX UR CULTURE Stat Lab 09/03/20 14:00 Completed Medication Summary Discontinued Medications Generic Name Dose Route Start Last Admin Trade Name Freq PRN Reason Stop Dose Admin Sodium Chloride 1,000 mls @ 999 mls/hr 09/03/20 13:47 09/03/20 15:01 Sodium Chloride 0.9% 1000 Ml IV 09/03/20 14:47 Infused .Q1H1M STA Infusion Sodium Chloride Confirm 09/03/20 13:57 Sodium Chloride 0.9% 1000 Ml Administered 09/03/20 13:58 Dose 1,000 mls @ ud .ROUTE .STK-MED ONE Ketorolac Tromethamine 30 mg 09/03/20 13:47 09/03/20 13:59 Toradol 30 Mg Injection IV 09/03/20 13:48 30 mg STAT ONE Administration Ketorolac Tromethamine Confirm 09/03/20 13:57 Toradol 30 Mg Injection Administered 09/03/20 13:58 Dose 30 mg .ROUTE .STK-MED ONE Ondansetron HCl 4 mg 09/03/20 14:04 09/03/20 14:07 Zofran 4 Mg/2 Ml Vial IV 09/03/20 14:05 4 mg STAT ONE Administration Ondansetron HCl Confirm 09/03/20 14:06 Zofran 4 Mg/2 Ml Vial Administered 09/03/20 14:07 Dose 4 mg .ROUTE .STK-MED ONE Lab/Rad Data: Laboratory Result Diagrams 09/03/20 15:05 09/03/20 15:05 Laboratory Results 09/03/20 09/03/20 09/03/20 Range/Units 15:05 15:05 14:04 WBC 10.2 (4.0-10.5) K/mm3 RBC 4.33 (4.1-5.4) M/mm3 Hgb 13.6 (12.0-16.0) gm/dl Hct 41.5 (35-47) % MCV 95.8 (78-100) fl MCH 31.4 (26-32) pg MCHC 32.8 (32-36) g/dl RDW 14.8 H (11.5-14.0) % Plt Count 215 (150-450) K/mm3 MPV 11.9 H (7.5-11.0) fl Gran % 76.3 H (36.0-66.0) % Eos # (Auto) 0.04 (0-0.5) Absolute Lymphs (auto) 1.85 (1.0-4.6) Absolute Monos (auto) 0.52 (0.0-1.3) Lymphocytes % 18.1 L (24.0-44.0) % Monocytes % 5.1 (0.0-12.0) % Eosinophils % 0.4 (0.00-5.0) % Basophils % 0.1 (0.0-0.4) % Absolute Granulocytes 7.81 H (1.4-6.9) Basophils # 0.01 (0-0.4) Sodium 139 (137-145) mmol/L Potassium 3.2 L (3.5-5.1) mmol/L Chloride 108 H (98-107) mmol/L Carbon Dioxide 22 (22-30) mmol/L Anion Gap 12.0 (5-15) MEQ/L BUN 3 L (7-17) mg/dL Creatinine 0.44 L (0.52-1.04) mg/dL Estimated GFR > 60.0 ML/MIN Glucose 96 (74-106) mg/dL Calcium 8.5 (8.4-10.2) mg/dL Total Bilirubin 1.00 (0.2-1.3) mg/dL AST 214 H (14-36) U/L ALT 119 H (0-35) U/L Alkaline Phosphatase 133 H (38-126) U/L Serum Total Protein 7.5 (6.3-8.2) g/dL Albumin 4.1 (3.5-5.0) g/dL Urine Color (YELLOW) Urine Appearance (CLEAR) Urine pH (5-6) Ur Specific [place] (1.005-1.025) Urine Protein (Negative) Urine Ketones (NEGATIVE) Urine Blood (0-5) [place]/ul Urine Nitrite (NEGATIVE) Urine Bilirubin (NEGATIVE) Urine Urobilinogen (0-1) mg/dL Ur Leukocyte Esterase (NEGATIVE) Urine WBC (Auto) (0-5) /HPF Urine RBC (Auto) (0-2) /HPF U Epithel Cells (Auto) (FEW) /HPF Urine Bacteria (Auto) (NEGATIVE) /HPF Urine Mucus (Auto) (NEGATIVE) /HPF Urine Culture Reflexed (NO) Urine Glucose (NEGATIVE) mg/dL Urine HCG, Qual NEGATIVE (Negative) 09/03/20 Range/Units 14:00 WBC (4.0-10.5) K/mm3 RBC (4.1-5.4) M/mm3 Hgb (12.0-16.0) gm/dl Hct (35-47) % MCV (78-100) fl MCH (26-32) pg MCHC (32-36) g/dl RDW (11.5-14.0) % Plt Count (150-450) K/mm3 MPV (7.5-11.0) fl Gran % (36.0-66.0) % Eos # (Auto) (0-0.5) Absolute Lymphs (auto) (1.0-4.6) Absolute Monos (auto) (0.0-1.3) Lymphocytes % (24.0-44.0) % Monocytes % (0.0-12.0) % Eosinophils % (0.00-5.0) % Basophils % (0.0-0.4) % Absolute Granulocytes (1.4-6.9) Basophils # (0-0.4) Sodium (137-145) mmol/L Potassium (3.5-5.1) mmol/L Chloride (98-107) mmol/L Carbon Dioxide (22-30) mmol/L Anion Gap (5-15) MEQ/L BUN (7-17) mg/dL Creatinine (0.52-1.04) mg/dL Estimated GFR ML/MIN Glucose (74-106) mg/dL Calcium (8.4-10.2) mg/dL Total Bilirubin (0.2-1.3) mg/dL AST (14-36) U/L ALT (0-35) U/L Alkaline Phosphatase (38-126) U/L Serum Total Protein (6.3-8.2) g/dL Albumin (3.5-5.0) g/dL Urine Color ALLYN (YELLOW) Urine Appearance SLIGHTLY CLOUDY (CLEAR) Urine pH 5.0 (5-6) Ur Specific [place] 1.036 (1.005-1.025) Urine Protein 100 (Negative) Urine Ketones TRACE (NEGATIVE) Urine Blood NEGATIVE (0-5) [place]/ul Urine Nitrite NEGATIVE (NEGATIVE) Urine Bilirubin MODERATE (NEGATIVE) Urine Urobilinogen 4 (0-1) mg/dL Ur Leukocyte Esterase NEGATIVE (NEGATIVE) Urine WBC (Auto) 3-5 (0-5) /HPF Urine RBC (Auto) NONE (0-2) /HPF U Epithel Cells (Auto) RARE (FEW) /HPF Urine Bacteria (Auto) FEW (NEGATIVE) /HPF Urine Mucus (Auto) MODERATE (NEGATIVE) /HPF Urine Culture Reflexed NO (NO) Urine Glucose NEGATIVE (NEGATIVE) mg/dL Urine HCG, Qual (Negative) - Progress Progress: improved Progress Note: 09/03/20 17:[address] Tan. Per Dr. Tan patient has been experiencing chronic abdominal pain. Patient was referred to GI. Patient states she did see a GI doctor once however nothing came of that visit. Patient will follow-up with Dr. Tan within [address] Tan advised discharged and outpatient follow-up. Patient voices no other complaints or concerns at this time. Counseled pt/family regarding: lab results, diagnosis, need for follow-up, rad results - Departure Departure Disposition: Home Clinical Impression: Flank pain, Calcified granuloma of lung, Hepatosplenomegaly, Hypokalemia, Transaminitis, Proteinuria, Bilirubin in urine Condition: Stable Critical Care Time: No Referrals: TAMELA TAN [Primary Care Provider] - Additional Instructions: Discharge/Care Plan TIARA,MAGON HOPE was seen on 09/03/20 in the Emergency Room. The patient was counseled regarding Diagnosis,Lab results, Imaging studies, need for follow up and when to return to the Emergency Room. Prescriptions given: Discharge Note I have spoken with the patient and/or caregivers. I have explained the patient's condition, diagnosis and treatment plan based on the information available to me at this time. I have answered the patient's and/or caregiver's questions and addressed any concerns. The patient and/or caregivers have as good understanding of the patient's diagnosis, condition and treatment plan as can be expected at this point. The vital signs have been stable. The patient's condition is stable and appropriate for discharge from the emergency department. The patient will pursue further outpatient evaluation with the primary care physician or other designated or consulting physician as outlined in the discharge instructions. The patient and/or caregivers are agreeable to this plan of care and follow-up instructions have been explained in detail. The patient and/or caregivers have received these instruction. The patient/and or caregivers are aware that any significant change in condition or worsening of symptoms should prompt an immediate return to this or the closest emergency department or call 911. Prescriptions: Ondansetron ODT 4 MG [Zofran Odt 4 mg] 4 mg PO Q6H PRN PRN #10 tab.rapdis PRN Reason: Nausea
--- NOTE | 2020-09-03 16:50 | XRAY ---
Indication: Right flank pain. History kidney stones. Multiple contiguous axial images obtained through the abdomen and pelvis without contrast using renal stone protocol. Comparison: May 23, 2020. Lung bases demonstrate minimal dependent atelectasis. Stable left lower lobe calcified granulomas. No infiltrate or effusion. Heart is not enlarged. Right kidney demonstrates 2 punctate and left demonstrates one punctate calculus not well seen on comparison contrasted exam. Micro-calculi are unchanged with respect to earlier CT renal stone study May 19, 2020. No hydronephrosis, hydroureter, or evidence for obstructive uropathy. Noncontrasted stomach and bowel loops appear nonobstructed. Again appendectomy and cholecystectomy reported. No free fluid/air. There remains fatty hepatomegaly today measuring 22.7 cm and splenomegaly measuring 12.6 cm. Stable splenic calcified granulomas. Remaining liver, pancreas, spleen, adrenal glands, kidneys, ureters, bladder, uterus, and aorta appear unremarkable for noncontrast exam. Osseous structures intact. Impression: 1. Stable nonobstructing bilateral renal micro-calculi, fatty hepatomegaly, splenomegaly, and old granulomatous disease. 2. Remaining CT abdomen/pelvis without contrast exam is negative.
[2020-09-03] MEDS ORDERED: Klor Con 10 MEQ PO ONE ×2 (17:27→17:35)
[2020-09-03 17:31] VITALS: BP 148/91; PULSE 89
== END 2020-09-03 17:41 | disposition home or self-care (01) ==
LOC: ED 12:21
DX: R10.9 Unspecified abdominal pain (principal); J84.10 Pulmonary fibrosis, unspecified; R16.2 Hepatomegaly with splenomegaly, not elsewhere classified; E87.6 Hypokalemia; E80.6 Other disorders of bilirubin metabolism; R80.9 Proteinuria, unspecified
CPT/HCPCS: 36000; 36415; 74176; 80053; 81001; 84703; 85025; 96360; 96374; 96375; 99284; J1885; J2405; A9270-GY

== ENCOUNTER 2020-09-19 05:18 | Observation (INO) | payer OTHER ==
--- NOTE | 2020-09-19 05:23 | ERPHSYRPT ---
- History of Present Illness Historian: patient Exam Limitations: no limitations Timing/Duration: intermittent, worse, other (Patient has had intermittent, significant right upper quadrant and right flank pain since April 2020) Activities at Onset: none Quality: sharpness, stabbing Abdominal Pain Onset Location: RUQ, flank Pain Radiation: RUQ Severity of Pain-Max: moderate Severity of Pain-Current: moderate Modifying Factors: Improves With: vomiting Associated Symptoms: nausea, vomiting, No chest pain, No fever/chills, No shortness of breath Previous symptoms: same symptoms as today, recently seen, recently treated Hx Tetanus, Diphtheria Vaccination/Date Given: No (unknown) Hx Influenza Vaccination/Date Given: No Hx Pneumococcal Vaccination/Date Given: No <BUBBA WANG - Last Filed: 09/19/20 06:50> <BARRETT JOSEPH - Last Filed: 09/19/20 08:21> - History of Present Illness Time Seen by Provider: 09/19/20 05:22 Physician History: This is a 30-year-old white female patient of Dr. Yunier Khan and has a history of chronic recurrent abdominal pain and hypertension. She takes a beta-silvia to treat her high blood pressure issue patient sees a pain specialist for pain control. Patient states she has had significant, intermittent right upper quadrant, right flank pain since April 2020. Patient states that she was told she has a history of pancreatitis. Patient has had a cholecystectomy and appendectomy in the past. Patient was referred to a manager oncology out of [facility] in [place] but has not seen that physician yet per patient report. Patient's most recent episode of abdominal pain as described above, occurred while she was at work today. The pain became unbearable despite taking her prescribed [place] medication. She has had vomiting as well. Patient denies chest pain and she denies shortness of breath. Patient has had no fevers. She has no dysuria or hematuria. Patient does have a history of renal lithiasis. Patient denies illicit drug use and denies alcohol use/abuse. Patient was seen in this emergency department 2 weeks ago for the same issue (BUBBA WANG) Allergies/Adverse Reactions: Penicillins Adverse Reaction (Mild, Verified 09/19/20 05:27) Rash pt states she is not had problems with antibitics related to pcn as an adult Home Medications: Hydrocodone/Acetaminophen [Hydrocodone-Acetamin 10-325 mg] 1 tab PO BID 09/03/20 [History] Travel Risk - International Travel Have you traveled outside of the country in past 3 weeks: No - Coronavirus Screening Are you exhibiting any of the following symptoms?: No Close contact with a COVID-19 positive Pt in past 14-21 Days: No <BUBBA WANG - Last Filed: 09/19/20 06:50> - Review of Systems Constitutional: No Symptoms Eyes: No Symptoms Ears, Nose, & Throat: No Symptoms Respiratory: No Symptoms Cardiac: No Symptoms Abdominal/Gastrointestinal: Abdominal Pain, Nausea, Vomiting Genitourinary Symptoms: No Symptoms Musculoskeletal: No Symptoms Skin: No Symptoms Neurological: No Symptoms Psychological: No Symptoms Endocrine: No Symptoms Hematologic/Lymphatic: No Symptoms Immunological/Allergic: No Symptoms All Other Systems: Reviewed and Negative <BUBBA WANG - Last Filed: 09/19/20 06:50> - Past Medical History Pertinent Past Medical History: Yes Neurological History: No Pertinent History ENT History: No Pertinent History Cardiac History: Hypertension Respiratory History: No Pertinent History Endocrine Medical History: No Pertinent History Musculoskeletal History: No Pertinent History GI Medical History: Pancreatitis History: Other Psycho-Social History: Anxiety, Depression, Panic Disorder Female Reproductive Disorders: Endometriosis Other Medical History: kidney stones - Past Surgical History Past Surgical History: Yes Neuro Surgical History: No Pertinent History Cardiac: No Pertinent History Respiratory: No Pertinent History Gastrointestinal: Appendectomy, Cholecystectomy Genitourinary: No Pertinent History Musculoskeletal: No Pertinent History Female Surgical History: No Pertinent History Other Surgical History: exploratory laparoscopy per Dr Hidalgo 2014- negative - Social History Smoking Status: Current every day smoker How long have you smoked: 3 Exposure to second hand smoke: No Alcohol Use: Socially Drug Use: none Patient Lives Alone: No Significant Family History: no pertinent family hx <BUBBA WANG - Last Filed: 09/19/20 06:50> - Physical Exam General Appearance: mild distress, alert, anxiety Eye Exam: PERRL/EOMI, eyes nml inspection Ears, Nose, Throat Exam: normal ENT inspection, moist mucous membranes Neck Exam: normal inspection, non-tender, supple, full range of motion Respiratory Exam: normal breath sounds, lungs clear, airway intact, No chest ten derness, No respiratory distress Cardiovascular Exam: normal peripheral pulses, tachycardia Gastrointestinal/Abdomen Exam: soft, tenderness (Right upper quadrant), guarding, No rebound Pelvic Exam: not done Rectal Exam: not done Back Exam: normal inspection, normal range of motion, CVA tenderness (Right side) Extremity Exam: normal inspection, normal range of motion, pelvis stable Neurologic Exam: alert, oriented x 3, cooperative, 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 tested, normal mood/affect, nml cerebellar function, nml station & gait, sensation nml Skin Exam: normal color, warm, dry Lymphatic Exam: No adenopathy SpO2 Interpretation: normal O2 Delivery: Room Air <BUBBA WANG - Last Filed: 09/19/20 06:50> - Nursing Vital Signs Nursing Vital Signs: Initial Vital Signs Temperature 97.9 F 09/19/20 05:28 Pulse Rate 122 H 09/19/20 05:28 Respiratory Rate 22 09/19/20 05:28 Blood Pressure 202/143 09/19/20 05:28 O2 Sat by Pulse Oximetry 97 09/19/20 05:28 Pain Scale Pain Intensity 10 - Course Nursing assessment & vital signs reviewed: Yes <BUBBA WANG - Last Filed: 09/19/20 06:50> Ordered Tests: Active Orders 24 hr Category Date Time Status Clean Catch Urine Specimen STAT Care 09/19/20 05:59 Active IV Insertion STAT Care 09/19/20 05:59 Active ABDOMEN AND PELVIS W/0 CONTRAS [CT] Stat Exams 09/19/20 06:38 Taken AMYLASE Stat Lab 09/19/20 06:21 Completed CBC W DIFF Stat Lab 09/19/20 06:21 Completed CMP Stat Lab 09/19/20 06:21 Completed HCG,QUALITATIVE URINE Stat Lab 09/19/20 06:03 Completed LIPASE Stat Lab 09/19/20 06:21 Completed Lactic Acid Stat Lab 09/19/20 06:14 Completed UA W/RFX UR CULTURE Stat Lab 09/19/20 06:13 Completed Urine Triage Profile Stat Lab 09/19/20 06:13 Completed Transfer Order Routine Transfer 09/19/20 Ordered Medication Summary Generic Name Dose Route Start Last Admin Trade Name Freq PRN Reason Stop Dose Admin Potassium Chloride 20 meq in 100 mls @ 50 mls/hr 09/19/20 06:42 09/19/20 06:59 Potassium Chloride 20 Meq In Water 100ml IV 09/19/20 08:41 50 mls/hr STAT ONE Administration Discontinued Medications Generic Name Dose Route Start Last Admin Trade Name Lazaro PRN Reason Stop Dose Admin Hydromorphone HCl 1 mg 09/19/20 06:01 09/19/20 07:00 Hydromorphone 1 Mg/Ml Injection IV 09/19/20 06:02 1 mg STAT ONE Administration Hydromorphone HCl Confirm 09/19/20 06:45 Hydromorphone 1 Mg/Ml Injection Administered 09/19/20 06:46 Dose 1 mg .ROUTE .STK-MED ONE Sodium Chloride 1,000 mls @ 999 mls/hr 09/19/20 05:59 09/19/20 06:58 Sodium Chloride 0.9% 1000 Ml IV 09/19/20 06:59 999 mls/hr .Q1H1M STA Administration Sodium Chloride Confirm 09/19/20 06:44 Sodium Chloride 0.9% 1000 Ml Administered 09/19/20 06:45 Dose 1,000 mls @ ud .ROUTE .STK-MED ONE Potassium Chloride Confirm 09/19/20 06:46 Potassium Chloride 20 Meq In Water 100ml Administered 09/19/20 06:47 Dose 100 mls @ ud IV .STK-MED ONE Metoprolol Tartrate 5 mg 09/19/20 06:00 09/19/20 06:59 Lopressor 5 Mg/5 Ml Injection IV 09/19/20 06:01 5 mg STAT ONE Administration Metoprolol Tartrate Confirm 09/19/20 06:45 Lopressor 5 Mg/5 Ml Injection Administered 09/19/20 06:46 Dose 5 mg IV .STK-MED ONE Morphine Sulfate 4 mg 09/19/20 08:05 09/19/20 08:11 Morphine Sulfate 4 Mg Inj IV 09/19/20 08:06 4 mg STAT ONE Administration Morphine Sulfate Confirm 09/19/20 08:10 Morphine Sulfate 4 Mg Inj Administered 09/19/20 08:11 Dose 4 mg .ROUTE .STK-MED ONE Ondansetron HCl 4 mg 09/19/20 05:59 09/19/20 06:04 Zofran Odt 4 Mg PO 09/19/20 06:00 4 mg STAT ONE Administration Ondansetron HCl Confirm 09/19/20 06:01 Zofran Odt 4 Mg Administered 09/19/20 06:02 Dose 4 mg .ROUTE .STK-MED ONE Pantoprazole Sodium 40 mg 09/19/20 06:01 09/19/20 06:59 Protonix 40 Mg Iv IV 09/19/20 06:02 40 mg STAT ONE Administration Pantoprazole Sodium Confirm 09/19/20 06:45 Protonix 40 Mg Iv Administered 09/19/20 06:46 Dose 40 mg IV .STK-MED ONE Lab/Rad Data: Laboratory Result Diagrams 09/19/20 06:21 09/19/20 06:21 Laboratory Results 09/19/20 09/19/20 09/19/20 Range/Units 06:21 06:21 06:14 WBC 7.9 (4.0-10.5) K/mm3 RBC 4.08 L (4.1-5.4) M/mm3 Hgb 13.5 (12.0-16.0) gm/dl Hct 39.1 (35-47) % MCV 95.8 (78-100) fl MCH 33.1 H (26-32) pg MCHC 34.5 (32-36) g/dl RDW 17.8 H (11.5-14.0) % Plt Count 179 (150-450) K/mm3 MPV 10.7 (7.5-11.0) fl Gran % 64.1 (36.0-66.0) % Eos # (Auto) 0.08 (0-0.5) Absolute Lymphs (auto) 2.29 (1.0-4.6) Absolute Monos (auto) 0.44 (0.0-1.3) Lymphocytes % 29.0 (24.0-44.0) % Monocytes % 5.6 (0.0-12.0) % Eosinophils % 1.0 (0.00-5.0) % Basophils % 0.3 (0.0-0.4) % Absolute Granulocytes 5.08 (1.4-6.9) Basophils # 0.02 (0-0.4) Sodium 142 (137-145) mmol/L Potassium 2.9 L* (3.5-5.1) mmol/L Chloride 109 H (98-107) mmol/L Carbon Dioxide 23 (22-30) mmol/L Anion Gap 13.8 (5-15) MEQ/L BUN 5 L (7-17) mg/dL Creatinine 0.41 L (0.52-1.04) mg/dL Estimated GFR > 60.0 ML/MIN Glucose 103 (74-106) mg/dL Lactic Acid 2.8 H (0.4-2.0) Calcium 8.9 (8.4-10.2) mg/dL Total Bilirubin 0.80 (0.2-1.3) mg/dL AST 110 H (14-36) U/L ALT 101 H (0-35) U/L Alkaline Phosphatase 136 H (38-126) U/L Serum Total Protein 7.5 (6.3-8.2) g/dL Albumin 4.3 (3.5-5.0) g/dL Amylase 151 H (30-110) U/L Lipase 815 H (23-300) U/L Urine Color (YELLOW) Urine Appearance (CLEAR) Urine pH (5-6) Ur Specific [place] (1.005-1.025) Urine Protein (Negative) Urine Ketones (NEGATIVE) Urine Blood (0-5) [place]/ul Urine Nitrite (NEGATIVE) Urine Bilirubin (NEGATIVE) Urine Urobilinogen (0-1) mg/dL Ur Leukocyte Esterase (NEGATIVE) Urine WBC (Auto) (0-5) /HPF Urine RBC (Auto) (0-2) /HPF U Epithel Cells (Auto) (FEW) /HPF Urine Bacteria (Auto) (NEGATIVE) /HPF Urine Mucus (Auto) (NEGATIVE) /HPF Urine Culture Reflexed (NO) Urine Glucose (NEGATIVE) mg/dL Urine HCG, Qual (Negative) Urine Opiates Level (NEGATIVE) Ur Methadone (NEGATIVE) Urine Barbiturates (NEGATIVE) Ur Phencyclidine (PCP) (NEGATIVE) Urine Amphetamine (NEGATIVE) U Benzodiazepine Level (NEGATIVE) Urine Cocaine (NEGATIVE) Urine Marijuana (THC) (NEGATIVE) 09/19/20 09/19/20 09/19/20 Range/Units 06:13 06:13 06:03 WBC (4.0-10.5) K/mm3 RBC (4.1-5.4) M/mm3 Hgb (12.0-16.0) gm/dl Hct (35-47) % MCV (78-100) fl MCH (26-32) pg MCHC (32-36) g/dl RDW (11.5-14.0) % Plt Count (150-450) K/mm3 MPV (7.5-11.0) fl Gran % (36.0-66.0) % Eos # (Auto) (0-0.5) Absolute Lymphs (auto) (1.0-4.6) Absolute Monos (auto) (0.0-1.3) Lymphocytes % (24.0-44.0) % Monocytes % (0.0-12.0) % Eosinophils % (0.00-5.0) % Basophils % (0.0-0.4) % Absolute Granulocytes (1.4-6.9) Basophils # (0-0.4) Sodium (137-145) mmol/L Potassium (3.5-5.1) mmol/L Chloride (98-107) mmol/L Carbon Dioxide (22-30) mmol/L Anion Gap (5-15) MEQ/L BUN (7-17) mg/dL Creatinine (0.52-1.04) mg/dL Estimated GFR ML/MIN Glucose (74-106) mg/dL Lactic Acid (0.4-2.0) Calcium (8.4-10.2) mg/dL Total Bilirubin (0.2-1.3) mg/dL AST (14-36) U/L ALT (0-35) U/L Alkaline Phosphatase (38-126) U/L Serum Total Protein (6.3-8.2) g/dL Albumin (3.5-5.0) g/dL Amylase (30-110) U/L Lipase (23-300) U/L Urine Color YELLOW (YELLOW) Urine Appearance CLEAR (CLEAR) Urine pH 7.0 (5-6) Ur Specific [place] 1.008 (1.005-1.025) Urine Protein 30 (Negative) Urine Ketones NEGATIVE (NEGATIVE) Urine Blood NEGATIVE (0-5) [place]/ul Urine Nitrite NEGATIVE (NEGATIVE) Urine Bilirubin NEGATIVE (NEGATIVE) Urine Urobilinogen NEGATIVE (0-1) mg/dL Ur Leukocyte Esterase NEGATIVE (NEGATIVE) Urine WBC (Auto) 3-5 (0-5) /HPF Urine RBC (Auto) NONE (0-2) /HPF U Epithel Cells (Auto) RARE (FEW) /HPF Urine Bacteria (Auto) NONE (NEGATIVE) /HPF Urine Mucus (Auto) SLIGHT (NEGATIVE) /HPF Urine Culture Reflexed NO (NO) Urine Glucose NEGATIVE (NEGATIVE) mg/dL Urine HCG, Qual NEGATIVE (Negative) Urine Opiates Level NEGATIVE (NEGATIVE) Ur Methadone NEGATIVE (NEGATIVE) Urine Barbiturates NEGATIVE (NEGATIVE) Ur Phencyclidine (PCP) NEGATIVE (NEGATIVE) Urine Amphetamine NEGATIVE (NEGATIVE) U Benzodiazepine Level NEGATIVE (NEGATIVE) Urine Cocaine NEGATIVE (NEGATIVE) Urine Marijuana (THC) NEGATIVE (NEGATIVE) - Progress Progress: pain not gone completely <BUBBA WANG - Last Filed: 09/19/20 06:50> - Progress Discussed with Dr.: Kalin Will see patient in: hospital (observation) Counseled pt/family regarding: lab results, diagnosis, rad results <BARRETT JOSEPH - Last Filed: 09/19/20 08:21> - Progress Progress Note: 09/19/20 06:51 Patient is signed out to Dr. Joseph. I reviewed the patient history, condition and pending laboratory and CAT scan studies that need to be followed up on. He accepts the patient in transfer at shift change. (BUBBA WANG) I resumed care at the end of Dr. Wang shift with pending CT results. Patient presented with upper abdominal pain with vomiting for the last 2 to 3 days with progressive worsening. She is given symptomatic treatment in the ER for pain and vomiting. Work-up showed normal white count, elevated lipase and amylase with normal bilirubin and some elevation in transaminases. She has a lactate of 2.8 which I believe is secondary to dehydration from vomiting. She also has hypokalemia and is getting replacement for that. CT showed findings consistent with mild acute pancreatitis. Discussed with Dr. Khan and patient is being admitted for conservative management of acute pancreatitis flareup. Plan discussed with patient who understand and agrees with it. 09/19/20 08:18 (BARRETT JOSEPH) - Departure Departure Disposition: Home Critical Care Time: No <BUBBA WANG - Last Filed: 09/19/20 06:50> - Departure Departure Disposition: Observation <OPAL,BARRETT - Last Filed: 09/19/20 08:21> - Departure Clinical Impression: Hypokalemia Acute pancreatitis Qualifiers: Pancreatitis type: unspecified pancreatitis type Acute pancreatitis complication: unspecified Qualified Code(s): K85.90 - Acute pancreatitis without necrosis or infection, unspecified Condition: Stable Referrals: YUNIER KHAN [Primary Care Provider] -
[2020-09-19] MEDS ORDERED: ZOFRAN ODT 4 MG PO ONE (05:59)
[2020-09-19] MEDS ORDERED: Sodium Chloride 0.9% 1000 ML 1,000 ML IV STA (05:59)
[2020-09-19] MEDS ORDERED: LOPRESSOR 5 MG/5 ML INJECTION IV ONE ×2 (06:00→06:45)
[2020-09-19] MEDS ORDERED: Hydromorphone 1 mg/ml Injection IV ONE (06:01)
[2020-09-19] MEDS ORDERED: ZOFRAN ODT 4 MG ONE (06:01)
[2020-09-19] MEDS ORDERED: PROTONIX 40 MG IV IV ONE ×2 (06:01→06:45)
[2020-09-19 06:25] LABS: Absolute Neutrophil Ct (ANC) 5.08 (1.4-6.9); BASOPHIL % 0.3 % (0.0-0.4); Basophil (Absolute #) 0.02 (0-0.4); Eosinophil (Absolute #) 0.08 (0-0.5); Hematocrit 39.1 % (35-47); Hemoglobin 13.5 gm/dl (12.0-16.0); Lymphocyte (Absolute #) 2.29 (1.0-4.6); Mean Cell Volume 95.8 fl (78-100); Mean Corpuscular Hemoglobin 33.1 pg (26-32); Mean Corpuscular Hgb Concent. 34.5 g/dl (32-36); Mean Platelet Volume 10.7 fl (7.5-11.0); Monocyte (Absolute #) 0.44 (0.0-1.3); Monocytes % 5.6 % (0.0-12.0); Neutrophil % 64.1 % (36.0-66.0); Platelet Count 179 K/mm3 (150-450); Red Blood Count 4.08 M/mm3 (4.1-5.4); Red Cell Distribution Width 17.8 % (11.5-14.0); White Blood Count 7.9 K/mm3 (4.0-10.5)
[2020-09-19 06:31] LABS: Appearance CLEAR (CLEAR); Bilirubin NEGATIVE (NEGATIVE); Blood NEGATIVE Ery/ul (0-5); Epithelial Cells RARE /HPF (FEW); Glucose NEGATIVE (NEGATIVE); Ketones NEGATIVE (NEGATIVE); Leukocyte Esterase NEGATIVE (NEGATIVE); Mucus SLIGHT /HPF (NEGATIVE); Nitrite NEGATIVE (NEGATIVE); Protein,Urine Dip 30 (Negative); Specific Gravity 1.008 (1.005-1.025); Urobilinogen NEGATIVE mg/dL (0-1)
[2020-09-19 06:37] LABS: ALBUMIN 4.3 g/dL (3.5-5.0); ALKALINE PHOSPHATASE 136 U/L (38-126); AMYLASE 151 U/L (30-110); ANION GAP 13.8 MEQ/L (5-15); BLOOD UREA NITROGEN 5 mg/dL (7-17); CHLORIDE 109 mmol/L (98-107); Calcium 8.9 mg/dL (8.4-10.2); Carbon Dioxide 23 mmol/L (22-30); Creatinine 1 0.41 mg/dL (0.52-1.04); EST GLOMERULAR FILTRATION RATE > 60.0 ML/MIN; Glucose 103 mg/dL (74-106); LIPASE 815 U/L (23-300); SGOT/AST 110 U/L (14-36); SGPT/ALT 101 U/L (0-35); SODIUM 142 mmol/L (137-145); Total Protein 7.5 g/dL (6.3-8.2)
[2020-09-19] MEDS ORDERED: POTASSIUM CHLORIDE 20 mEq IN WATER 100ML 20 MEQ/100 ML BAG IV ONE ×2 (06:42→08:58)
[2020-09-19 06:43] LABS: Potassium 2.9 mmol/L (3.5-5.1)
[2020-09-19] MEDS ORDERED: Sodium Chloride 0.9% 1000 ML 1,000 ML ONE (06:44)
[2020-09-19] MEDS ORDERED: Hydromorphone 1 mg/ml Injection ONE (06:45)
[2020-09-19] MEDS ORDERED: POTASSIUM CHLORIDE 20 mEq IN WATER 100ML 100 ML IV ONE (06:46)
[2020-09-19 06:47] LABS: Amphetamine,Urine NEGATIVE (NEGATIVE); Barbiturate,Urine NEGATIVE (NEGATIVE); Benzodiazepine,Urine NEGATIVE (NEGATIVE); Cocaine,Urine NEGATIVE (NEGATIVE); Methadone,Urine NEGATIVE (NEGATIVE); Opiate,Urine NEGATIVE (NEGATIVE); PCP,Urine NEGATIVE (NEGATIVE); THC,Urine NEGATIVE (NEGATIVE)
[2020-09-19] MEDS ORDERED: MORPHINE SULFATE 4 MG INJ IV ONE (08:05)
[2020-09-19] MEDS ORDERED: MORPHINE SULFATE 4 MG INJ ONE (08:10)
--- NOTE | 2020-09-19 08:48 | XRAY ---
Indication: Right flank/right upper quadrant pain 3 days. History renal stones. Multiple contiguous axial images obtained through the abdomen and pelvis without contrast using renal stone protocol. Comparison: September 03, 2020. Lung bases demonstrates stable left lower lobe calcified granuloma. No infiltrate or effusion. Heart is not enlarged. Remains grossly stable 2 right renal and 1 left renal nonobstructing punctate calculi. Noncontrasted stomach and bowel loops appear nonobstructed. Again appendectomy and cholecystectomy reported. Head/uncinate portion of the pancreas now appears mildly prominent with minimal peripancreatic stranding concerning for mild/early pancreatitis. No free fluid/air. Again incidental 23 cm fatty hepatomegaly and 12.3 cm splenomegaly with calcified splenic granulomas. Remaining liver, pancreas, spleen, adrenal glands, kidneys, ureters, bladder, uterus, and aorta appear unremarkable for noncontrast exam. Osseous structures intact. Impression: 1. Stable nonobstructing bilateral renal micro-calculi. 2. Prominent pancreatic head/uncinate with peripancreatic stranding. Rule out mild/early pancreatitis. 3. Again incidental fatty hepatomegaly, splenomegaly, and old granulomatous disease.
[2020-09-19] MEDS ORDERED: Zofran 4 MG/2 ML VIAL IV PRN (08:58)
[2020-09-19] MEDS ORDERED: Sodium Chloride 0.9% 1000 ML 1,000 ML IV SCH (08:58)
[2020-09-19] MEDS: PROTONIX 40 MG IV IV SCH (09:30)
[2020-09-19] MEDS: MORPHINE SULFATE 4 MG INJ IV PRN ×2 (11:17→15:19)
[2020-09-19] MEDS ORDERED: DILAUDID 1 MG/1ML PCA IV PRN (16:18)
[2020-09-19] MEDS: Nicoderm CQ 21 MG TOP SCH (17:05)
[2020-09-19] MEDS: D5W/0.45NS W/ 20mEq KCl 1000 ML 1,000 ML IV SCH (17:05)
[2020-09-20] MEDS: Zofran 4 MG/2 ML VIAL IV PRN (00:25)
[2020-09-20] MEDS: D5W/0.45NS W/ 20mEq KCl 1000 ML 1,000 ML IV SCH ×3 (00:58→17:46)
[2020-09-20 05:50] LABS: Absolute Neutrophil Ct (ANC) 4.57 (1.4-6.9); BASOPHIL % 0.3 % (0.0-0.4); Basophil (Absolute #) 0.02 (0-0.4); Eosinophil % 1.2 % (0.00-5.0); Eosinophil (Absolute #) 0.09 (0-0.5); Hematocrit 36.8 % (35-47); Hemoglobin 11.9 gm/dl (12.0-16.0); Lymphocyte (Absolute #) 2.58 (1.0-4.6); Lymphocytes % 33.3 % (24.0-44.0); Mean Cell Volume 100.5 fl (78-100); Mean Corpuscular Hemoglobin 32.5 pg (26-32); Mean Corpuscular Hgb Concent. 32.3 g/dl (32-36); Mean Platelet Volume 11.2 fl (7.5-11.0); Monocyte (Absolute #) 0.48 (0.0-1.3); Monocytes % 6.2 % (0.0-12.0); Platelet Count 142 K/mm3 (150-450); Red Blood Count 3.66 M/mm3 (4.1-5.4); Red Cell Distribution Width 18.1 % (11.5-14.0); White Blood Count 7.7 K/mm3 (4.0-10.5)
[2020-09-20 06:10] LABS: ALBUMIN 3.4 g/dL (3.5-5.0); ALKALINE PHOSPHATASE 112 U/L (38-126); ANION GAP 8.1 MEQ/L (5-15); BLOOD UREA NITROGEN 4 mg/dL (7-17); CHLORIDE 104 mmol/L (98-107); Calcium 7.9 mg/dL (8.4-10.2); Carbon Dioxide 26 mmol/L (22-30); EST GLOMERULAR FILTRATION RATE > 60.0 ML/MIN; Glucose 117 mg/dL (74-106); Potassium 3.5 mmol/L (3.5-5.1); SGOT/AST 65 U/L (14-36); SGPT/ALT 65 U/L (0-35); SODIUM 135 mmol/L (137-145); Total Protein 6.3 g/dL (6.3-8.2)
[2020-09-20 06:12] LABS: AMYLASE 91 U/L (30-110); LIPASE 567 U/L (23-300)
[2020-09-20] MEDS: PROTONIX 40 MG IV IV SCH (09:23)
--- NOTE | 2020-09-20 09:33 | XRAY ---
Indication: Pancreatitis. Cholecystectomy. Conventional MRCP performed. Comparison: None Gallbladder surgically absent. Biliary tree normal in course and caliber. Common bile duct measures up to 9 mm diameter, within normal limits for cholecystectomy. No choledochal stone. There is tapering of the distal common bile duct/ampulla for which sphincter of [place]cob dysfunction is offered for clinical consideration. Pancreatic duct measures 3-4 mm throughout the pancreas. Head/uncinate portion of the pancreas appears prominent with minimal edema favoring clinically reported pancreatitis. Remaining pancreas unremarkable. Small free fluid presumed reactive. No walled off fluid collection. Remaining visualized liver, spleen, adrenal glands, kidneys, stomach, bowel loops, aorta, and IVC appear unremarkable. No abnormal bone marrow signal. Impression: 1. Tapering of the distal common bile duct/ampulla. Rule out sphincter of Jaycob dysfunction. 2. Negative for choledochal stone. 3. Prominent edematous pancreatic head/uncinate process favoring clinically reported pancreatitis. No walled off fluid collection/phlegmon.
[2020-09-20] MEDS ORDERED: FLUZONE QUAD 2020-2021 SYRINGE IM ONE (10:00)
[2020-09-20] MEDS: Nicoderm CQ 21 MG TOP SCH (16:53)
[2020-09-21] MEDS: Zofran 4 MG/2 ML VIAL IV PRN ×2 (00:32→08:47)
[2020-09-21] MEDS: D5W/0.45NS W/ 20mEq KCl 1000 ML 1,000 ML IV SCH ×2 (02:16→10:06)
[2020-09-21 04:02] VITALS: O2SAT 95
[2020-09-21 07:10] VITALS: BP 144/95; PULSE 90
[2020-09-21] MEDS: PROTONIX 40 MG IV IV SCH (10:06)
--- NOTE | 2020-09-23 10:13 | HP ---
CHIEF COMPLAINT: Abdominal pain. HISTORY OF PRESENT ILLNESS: The patient is a 30 year old white female with known history of pancreatitis. She has seen Dr. Carranza in [place] and was instructed to see me in three months regarding further evaluation. The patient does not drink alcohol in significant amount but she did have some alcohol that kamlesh initial event. Dr. Carranza was thinking this was due to alcohol issues but we know that it is not to the best of our knowledge. The patient has been trying to receive an appointment in [place] to see [facility]ist but has not able to get an appointment up to this point. HOME MEDICATIONS: [place] 10/[address] Alba from pain management. ALLERGIES: PENICILLINS. PHYSICAL EXAMINATION: Vital signs on admission were temperature 97.9F, pulse 122, respiratory rate 22 and blood pressure 202/143. O2 saturation was 97%. HEENT: Normocephalic, atraumatic. Pupils equal round reactive to light. Extraocular movements intact. Oropharynx is slightly dry. NECK: Supple without lymphadenopathy, thyromegaly or JVD. CHEST: Clear to auscultation. HEART: Regular rate and rhythm. ABDOMEN: Tender in the epigastric region. No palpable masses felt. EXTREMITIES: Without cyanosis, clubbing or edema. NEUROLOGIC: The patient is alert and oriented x3. No focal deficits were noted. LAB DATA AND TESTS: The patient's lab values in the emergency room showed elevated lactate at 2.8. Her white count was 7,900, hemoglobin 13.5, PLT count was normal at 179,000. Urine HCG was negative. UA was essentially normal with specific gravity 1.008. Her metabolic panel showed sugar of 103, BUN 5, creatinine 0.41. Potassium slightly low at 2.9. Her liver enzymes have been elevated in the past slightly. AST was 110, ALT 101. Amylase 151, lipase 815. Urine drug screen was negative. The patient had CT scan showing stable nonobstructive bilateral renal micro-calculi, fatty hepatomegaly and splenomegaly. There are no new acute findings. Pancreatic head was somewhat prominent with minimal stranding; rule out mild early pancreatitis. ASSESSMENT: A patient with recurrent pancreatitis. She has been admitted to the hospital for gut rest, IV fluids and IV Dilaudid for pain control. Further evaluation pending, will consider getting MRCP here at our facility pending further evaluation by the GI specialist.
--- NOTE | 2020-09-24 14:32 | DS ---
DISCHARGE DIAGNOSIS: PANCREATITIS. HISTORY: The patient is a 30 year old white female who presented to the emergency room with vomiting and abdominal pain. The patient has a known history of pancreatitis and this has been her third or fourth admission for the same to our facility. The patient had been seen by Dr. Carranza in [place] who assumed it was pancreatitis due to alcohol and the patient has a follow up in three months and did no other evaluation to my understanding. We have been trying to get the patient in to see a GI specialist at [facility] for further evaluation and management. HOSPITAL COURSE: The patient was admitted to the hospital here for IV fluid management and pain management. She was given IV Dilaudid for pain management and made NPO. Her initial lipase was above 800 and fell to 500 the subsequent day. The patient was able to take clear liquids and had advanced her diet to low fat diet. By the morning of 09/21/2020, she was feeling well enough to go home again. The patient is also seen in pain management and apparently had missed an appointment to see them and therefore has no pain medication presently but due to her pain contract, we suggested that she wait until Wednesday (09/24/2020) when she sees them there for her pain medicine refill so she does not void her contract with pain management. The patient did have studies here of MRCP which did show narrowing in the area of Sphincter of Oddi which was concerning for Sphincter of Oddi dysfunction and was likely the cause for her problems as best we can tell. The patient is ready for discharge home now on a low fat diet with instructions to follow with pain management on 09/24/2020 and she has an appointment in [place] to see [facility] GI specialist in mid-October. 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
== END 2020-09-21 10:29 | disposition home or self-care (01) ==
LOC: ED 05:18 → MED SURG 08:51
PROVIDERS: ADMIT Family Medicine; ATTEND Family Medicine
DX: K85.90 Acute pancreatitis without necrosis or infection, unspecified (principal); R16.0 Hepatomegaly, not elsewhere classified; R16.1 Splenomegaly, not elsewhere classified
CPT/HCPCS: 36000; 36415; 74176; 74181; 80053; 80307; 81001; 82150; 83605; 83690; 84132; 84703; 85025; 93268; 94762; 96360; 96365; 96374; 96375; 99285; G0008; G0378; 90686; J1170; J2270; J2405; J3480; Q0162; A9270-GY

== ENCOUNTER 2020-11-04 05:42 | Inpatient (IN) | payer OTHER ==
[2020-11-04] MEDS ORDERED: Sodium Chloride 0.9% 1000 ML 1,000 ML IV STA (06:09)
[2020-11-04] MEDS ORDERED: PROTONIX 40 MG IV IV ONE ×2 (06:09→06:13)
[2020-11-04] MEDS ORDERED: Sodium Chloride 0.9% 1000 ML 1,000 ML ONE (06:13)
[2020-11-04] MEDS ORDERED: Hydromorphone 1 mg/ml Injection IV ONE ×2 (06:21→08:32)
[2020-11-04] MEDS ORDERED: Zofran 4 MG/2 ML VIAL IV ONE (06:21)
--- NOTE | 2020-11-04 06:21 | ERPHSYRPT ---
- History of Present Illness Source: patient Exam Limitations: no limitations Patient Subjective Stated Complaint: pt states she thinks she his having a pancreatitis flareup. has been vomiting for last 4 days. states she has pain in lt upper quad and mid back Triage Nursing Assessment: pt alert and oriented, answers questions approp. pt ambulatory with steady gait noted. skin warm and dry. respirations nonlabored with lungs cta. abd soft and nontender to light palpation. bowel sounds present x4 Hx Tetanus, Diphtheria Vaccination/Date Given: Yes (unknown) Hx Influenza Vaccination/Date Given: Yes Hx Pneumococcal Vaccination/Date Given: No Immunizations Up to Date: Yes <JOYCE FLOR - Last Filed: 11/04/20 07:02> <LENNOX CORONA - Last Filed: 11/04/20 09:06> - History of Present Illness Time Seen by Provider: 11/04/20 06:14 Physician History: The patient is a 30-year-old female with a past medical history significant for pancreatitis, hypertension, cholecystectomy, appendectomy and ongoing cigarette smoking presents with a chief complaint of abdominal pain. Onset reportedly was 4 days ago. In addition to her abdominal pain she also complained of nonbilious/nonbloody e mesis that started 4 days ago as well. Of note, the patient states her pain is similar to her prior episodes of pancreatitis. The pain is described as a dull ache to sharp pain located in her epigastrium, left upper quadrant and radiates to her back and right upper quadrant. The pain is constant and severe. She reports that she has had 3 episodes of pancreatitis since April of this year. The etiology of her pancreatitis is unknown. She reportedly is scheduled to follow-up with a newspaper editor located in [facility] this month but the appointment has been canceled. She was hoping the pain in the nausea and vomiting would go away and was trying to avoid hospital admission which is why she delayed seeking care. She took a Zofran prior to arrival with no relief in her symptoms and reportedly this was to be taking Prilosec but has not been taking this medication. She denies use and thiazide diuretic use. She follows with pain management and reportedly takes Cohutta but she is unable to keep this medication down and it is not helping. He reportedly was dropped off at this emergency department by her and can call for a ride if needed. (JOYCE FLOR) Allergies/Adverse Reactions: Penicillins Adverse Reaction (Mild, Verified 11/04/20 06:08) Rash pt states she is not had problems with antibitics related to pcn as an adult Home Medications: Metoprolol Tartrate 50 mg [Lopressor 50 MG] 50 mg PO BID 11/04/20 [History] Omeprazole 20 mg PO DAILY PRN PRN 11/04/20 [History] Ondansetron ODT 4 MG [Zofran Odt 4 mg] 4 mg PO Q4H PRN PRN 11/04/20 [History] Oxycodone HCl/Acetaminophen [Percocet 5-325 mg Tablet] 1 each PO TID PRN 11/04/20 [History] Travel Risk - International Travel Have you traveled outside of the country in past 3 weeks: No - Coronavirus Screening Are you exhibiting any of the following symptoms?: No Close contact with a COVID-19 positive Pt in past 14-21 Days: No <JOYCE FLOR - Last Filed: 11/04/20 07:02> - Review of Systems Constitutional: No Fever, No Chills Eyes: No Symptoms Ears, Nose, & Throat: No Symptoms Respiratory: No Cough, No Dyspnea, No Dyspnea on Exertion (NICOLAS) Cardiac: No Chest Pain Abdominal/Gastrointestinal: Abdominal Pain, Nausea, Vomiting, Appetite Changes, No Diarrhea, No Constipation, No Hematemesis, No Hematochezia, No Melena Genitourinary Symptoms: No Dysuria, No Frequency, No Hematuria Musculoskeletal: No Symptoms Skin: No Symptoms Neurological: No Symptoms Psychological: No Symptoms Hematologic/Lymphatic: No Symptoms Immunological/Allergic: No Symptoms All Other Systems: Reviewed and Negative <JOYCE FLOR - Last Filed: 11/04/20 07:02> - Past Medical History Pertinent Past Medical History: Yes Neurological History: No Pertinent History ENT History: No Pertinent History Cardiac History: Hypertension Respiratory History: No Pertinent History Endocrine Medical History: No Pertinent History Musculoskeletal History: No Pertinent History GI Medical History: Pancreatitis History: Other Psycho-Social History: Depression, Panic Disorder Female Reproductive Disorders: Endometriosis Other Medical History: kidney stones - Past Surgical History Past Surgical History: Yes Neuro Surgical History: No Pertinent History Cardiac: No Pertinent History Respiratory: No Pertinent History Gastrointestinal: Appendectomy, Cholecystectomy Genitourinary: No Pertinent History Musculoskeletal: No Pertinent History Female Surgical History: No Pertinent History Other Surgical History: exploratory laparoscopy per Dr Hidalgo 2014- negative, w isdom teeth - Social History Smoking Status: Current every day smoker How long have you smoked: yrs Exposure to second hand smoke: No Alcohol Use: Socially Drug Use: none Patient Lives Alone: No Significant Family History: no pertinent family hx - Female History Hx Last Menstrual Period: 2 weeks Hx Now: No <JOYCE FLOR - Last Filed: 11/04/20 07:02> - Physical Exam General Appearance: mild distress Eye Exam: PERRL/EOMI, eyes nml inspection, scleral icterus, No photophobia, No EOM palsy/anisocoria Ears, Nose, Throat Exam: pharyngeal erythema, No pharynx normal, No dry mucous membranes, No tonsillar exudate Neck Exam: normal inspection, supple, No JVD Respiratory Exam: normal breath sounds, lungs clear, airway intact, No chest tenderness, No respiratory distress, No diminished breath sounds, No accessory muscle use Cardiovascular Exam: normal peripheral pulses, tachycardia, capillary refill <2 sec, No edema, No pulse deficit Gastrointestinal/Abdomen Exam: soft, tenderness (Epigastric, LUQ, and RUQ tenderness), guarding, No mass, No rebound, No splenomegaly Rectal Exam: deferred Back Exam: normal inspection, CVA tenderness, other (No evidence of flank ecc hymosis), No vertebral tenderness, No point tenderness Extremity Exam: normal inspection, No pedal edema, No swelling, No tenderness Neurologic Exam: alert, oriented x 3, cooperative Skin Exam: normal color, warm, dry, No rash, No petechiae, No jaundice, No cyanosis, No jaundice SpO2 Interpretation: normal SpO2: 98 O2 Delivery: Room Air <JOYCE FLOR - Last Filed: 11/04/20 07:02> - Nursing Vital Signs Nursing Vital Signs: Initial Vital Signs Temperature 98.1 F 11/04/20 05:51 Pulse Rate 129 H 11/04/20 05:51 Respiratory Rate 18 11/04/20 05:51 Blood Pressure 216/128 11/04/20 05:51 O2 Sat by Pulse Oximetry 98 11/04/20 05:51 Pain Scale Pain Intensity 8 - Course Nursing assessment & vital signs reviewed: Yes EKG Interpreted by Me: RATE (115 bpm), Sinus Tach, NORMAL AXIS, NORMAL INTERVALS, NORMAL QRS, NORMAL ST-T <JOYCE FLOR - Last Filed: 11/04/20 07:02> - CT Exams Abdomen/Pelvis CT Interpretation: Tele-radiologist Report (CT scan reveals mild fat stranding around the pancreatic head compatible with pancreatitis. Mild thickened appearance of adjacent duodenum likely reactive. Hepatomegaly, hepatic steatosis tiny nephrolithiasis) <LENNOX CORONA - Last Filed: 11/04/20 09:06> Ordered Tests: Active Orders 24 hr Category Date Time Status EKG-ER Only STAT Care 11/04/20 06:09 Active IV Insertion STAT Care 11/04/20 06:09 Active ABDOMEN AND PELVIS W CONTRAST [CT] Stat Exams 11/04/20 06:32 Taken CBC W DIFF Stat Lab 11/04/20 06:12 Completed CMP Stat Lab 11/04/20 06:12 Completed CULTURE,URINE Stat Lab 11/04/20 06:12 Received HCG,QUALITATIVE URINE Stat Lab 11/04/20 06:12 Completed LIPASE Stat Lab 11/04/20 06:12 Completed Lactic Acid Stat Lab 11/04/20 06:09 Completed Lactic Acid Stat Lab 11/04/20 08:21 Completed MAGNESIUM Stat Lab 11/04/20 06:12 Completed Transfer Order Routine Transfer 11/04/20 Ordered Medication Summary Generic Name Dose Route Start Last Admin Trade Name Freq PRN Reason Stop Dose Admin Lactated Ringer's 1,000 mls @ 200 mls/hr 11/04/20 06:30 Lactated Ringers IV 12/04/20 06:29 .Q5H ANTONIO Potassium Chloride 20 meq in 100 mls @ 50 mls/hr 11/04/20 08:00 Potassium Chloride 20 Meq In Water 100ml IV 11/04/20 11:59 Q2H ANTONIO Magnesium Sulfate/Dextrose 100 mls @ 100 mls/hr 11/04/20 08:45 11/04/20 09:03 Magnesium 1 Gm / 100 Ml D5w IV 11/04/20 10:44 100 mls/hr Q1H ANTONIO Administration Discontinued Medications Generic Name Dose Route Start Last Admin Trade Name Freq PRN Reason Stop Dose Admin Hydromorphone HCl 1 mg 11/04/20 06:21 11/04/20 06:28 Hydromorphone 1 Mg/Ml Injection IV 11/04/20 06:22 1 mg STAT ONE Administration Hydromorphone HCl Confirm 11/04/20 06:25 Hydromorphone 1 Mg/Ml Injection Administered 11/04/20 06:26 Dose 1 mg .ROUTE .STK-MED ONE Hydromorphone HCl 1 mg 11/04/20 08:32 11/04/20 08:40 Hydromorphone 1 Mg/Ml Injection IV 11/04/20 08:33 1 mg STAT ONE Administration Hydromorphone HCl Confirm 11/04/20 08:40 Hydromorphone 1 Mg/Ml Injection Administered 11/04/20 08:41 Dose 1 mg .ROUTE .STK-MED ONE Sodium Chloride 1,000 mls @ 999 mls/hr 11/04/20 06:09 11/04/20 07:38 Sodium Chloride 0.9% 1000 Ml IV 11/04/20 07:09 Infused .Q1H1M STA Infusion Sodium Chloride Confirm 11/04/20 06:13 Sodium Chloride 0.9% 1000 Ml Administered 11/04/20 06:14 Dose 1,000 mls @ ud .ROUTE .STK-MED ONE Lactated Ringer's 1,000 mls @ 999 mls/hr 11/04/20 06:27 11/04/20 08:42 Lactated Ringers IV 11/04/20 07:27 Infused .Q1H1M ONE Infusion Ceftriaxone Sodium/Dextrose 1 g in 50 mls @ 100 mls/hr 11/04/20 07:47 11/04/20 09:02 Rocephin 1 Gm-D5w 50 Ml Bag IV 11/04/20 08:16 Infused STAT STA Titration Ceftriaxone Sodium/Dextrose Confirm 11/04/20 08:22 Rocephin 1 Gm-D5w 50 Ml Bag Administered 11/04/20 08:23 Dose 1 g in 50 mls @ ud IV .STK-MED ONE Ondansetron HCl 4 mg 11/04/20 06:21 11/04/20 06:26 Zofran 4 Mg/2 Ml Vial IV 11/04/20 06:22 4 mg STAT ONE Administration Ondansetron HCl Confirm 11/04/20 06:25 Zofran 4 Mg/2 Ml Vial Administered 11/04/20 06:26 Dose 4 mg .ROUTE .STK-MED ONE Pantoprazole Sodium 40 mg 11/04/20 06:09 11/04/20 06:14 Protonix 40 Mg Iv IV 11/04/20 06:10 40 mg STAT ONE Administration Pantoprazole Sodium Confirm 11/04/20 06:13 Protonix 40 Mg Iv Administered 11/04/20 06:14 Dose 40 mg IV .STK-MED ONE Lab/Rad Data: Laboratory Result Diagrams 11/04/20 06:12 11/04/20 06:12 Laboratory Results 11/04/20 11/04/20 11/04/20 Range/Units 08:21 06:12 06:12 WBC 10.3 (4.0-10.5) K/mm3 RBC 4.42 (4.1-5.4) M/mm3 Hgb 15.0 (12.0-16.0) gm/dl Hct 42.1 (35-47) % MCV 95.2 (78-100) fl MCH 33.9 H (26-32) pg MCHC 35.6 (32-36) g/dl RDW 17.6 H (11.5-14.0) % Plt Count 360 (150-450) K/mm3 MPV 11.9 H (7.5-11.0) fl Gran % 61.8 (36.0-66.0) % Eos # (Auto) 0.16 (0-0.5) Absolute Lymphs (auto) 3.09 (1.0-4.6) Absolute Monos (auto) 0.64 (0.0-1.3) Lymphocytes % 30.1 (24.0-44.0) % Monocytes % 6.2 (0.0-12.0) % Eosinophils % 1.6 (0.00-5.0) % Basophils % 0.3 (0.0-0.4) % Absolute Granulocytes 6.36 (1.4-6.9) Basophils # 0.03 (0-0.4) Sodium (137-145) mmol/L Potassium (3.5-5.1) mmol/L Chloride (98-107) mmol/L Carbon Dioxide (22-30) mmol/L Anion Gap (5-15) MEQ/L BUN (7-17) mg/dL Creatinine (0.52-1.04) mg/dL Estimated GFR ML/MIN Glucose (74-106) mg/dL Lactic Acid 2.7 H (0.4-2.0) Calcium (8.4-10.2) mg/dL Magnesium 1.3 L (1.6-2.3) mg/dL Total Bilirubin (0.2-1.3) mg/dL AST (14-36) U/L ALT (0-35) U/L Alkaline Phosphatase (38-126) U/L Serum Total Protein (6.3-8.2) g/dL Albumin (3.5-5.0) g/dL Lipase (23-300) U/L Urinalys Dipstick Clnc Urine Color (YELLOW) Urine Appearance (CLEAR) Urine pH (5-6) Ur Specific [place] (1.005-1.025) POC Urine Protein Conf (Negative) Urine Ketones (NEGATIVE) Urine Nitrite (NEGATIVE) Urine Bilirubin (NEGATIVE) Urine Urobilinogen (0-1) mg/dL Urine Leukocytes (NEGATIVE) Urine WBC (Auto) (0-5) /HPF Urine RBC (Auto) (0-2) /HPF U Hyaline Cast (Auto) (0-2) /LPF U Epithel Cells (Auto) (FEW) /HPF Urine Bacteria (Auto) (NEGATIVE) /HPF Urine RBC (0-5) [place]/ul Urine Mucus (Auto) (NEGATIVE) /HPF Ur Culture Indicated? Urine Glucose (NEGATIVE) mg/dL Urine HCG, Qual (Negative) 11/04/20 11/04/20 11/04/20 Range/Units 06:12 06:12 06:12 WBC (4.0-10.5) K/mm3 RBC (4.1-5.4) M/mm3 Hgb (12.0-16.0) gm/dl Hct (35-47) % MCV (78-100) fl MCH (26-32) pg MCHC (32-36) g/dl RDW (11.5-14.0) % Plt Count (150-450) K/mm3 MPV (7.5-11.0) fl Gran % (36.0-66.0) % Eos # (Auto) (0-0.5) Absolute Lymphs (auto) (1.0-4.6) Absolute Monos (auto) (0.0-1.3) Lymphocytes % (24.0-44.0) % Monocytes % (0.0-12.0) % Eosinophils % (0.00-5.0) % Basophils % (0.0-0.4) % Absolute Granulocytes (1.4-6.9) Basophils # (0-0.4) Sodium 139 (137-145) mmol/L Potassium 2.6 L* (3.5-5.1) mmol/L Chloride 103 (98-107) mmol/L Carbon Dioxide 23 (22-30) mmol/L Anion Gap 15.0 (5-15) MEQ/L BUN < 2 L (7-17) mg/dL Creatinine 0.45 L (0.52-1.04) mg/dL Estimated GFR > 60.0 ML/MIN Glucose 127 H (74-106) mg/dL Lactic Acid (0.4-2.0) Calcium 8.4 (8.4-10.2) mg/dL Magnesium (1.6-2.3) mg/dL Total Bilirubin 0.70 (0.2-1.3) mg/dL AST 60 H (14-36) U/L ALT 41 H (0-35) U/L Alkaline Phosphatase 110 (38-126) U/L Serum Total Protein 7.6 (6.3-8.2) g/dL Albumin 4.2 (3.5-5.0) g/dL Lipase 632 H (23-300) U/L Urinalys Dipstick Clnc MAIN LAB Urine Color ALLYN (YELLOW) Urine Appearance CLOUDY (CLEAR) Urine pH 6.0 (5-6) Ur Specific [place] >=1.030 (1.005-1.025) POC Urine Protein Conf >=300 (Negative) Urine Ketones TRACE (NEGATIVE) Urine Nitrite NEGATIVE (NEGATIVE) Urine Bilirubin MODERATE (NEGATIVE) Urine Urobilinogen 1 (0-1) mg/dL Urine Leukocytes NEGATIVE (NEGATIVE) Urine WBC (Auto) 16-25 (0-5) /HPF Urine RBC (Auto) 3-5 (0-2) /HPF U Hyaline Cast (Auto) 26-50 (0-2) /LPF U Epithel Cells (Auto) FEW (FEW) /HPF Urine Bacteria (Auto) FEW (NEGATIVE) /HPF Urine RBC TRACE-INTACT (0-5) [place]/ul Urine Mucus (Auto) MANY (NEGATIVE) /HPF Ur Culture Indicated? YES Urine Glucose NEGATIVE (NEGATIVE) mg/dL Urine HCG, Qual NEGATIVE (Negative) 11/04/20 Range/Units 06:09 WBC (4.0-10.5) K/mm3 RBC (4.1-5.4) M/mm3 Hgb (12.0-16.0) gm/dl Hct (35-47) % MCV (78-100) fl MCH (26-32) pg MCHC (32-36) g/dl RDW (11.5-14.0) % Plt Count (150-450) K/mm3 MPV (7.5-11.0) fl Gran % (36.0-66.0) % Eos # (Auto) (0-0.5) Absolute Lymphs (auto) (1.0-4.6) Absolute Monos (auto) (0.0-1.3) Lymphocytes % (24.0-44.0) % Monocytes % (0.0-12.0) % Eosinophils % (0.00-5.0) % Basophils % (0.0-0.4) % Absolute Granulocytes (1.4-6.9) Basophils # (0-0.4) Sodium (137-145) mmol/L Potassium (3.5-5.1) mmol/L Chloride (98-107) mmol/L Carbon Dioxide (22-30) mmol/L Anion Gap (5-15) MEQ/L BUN (7-17) mg/dL Creatinine (0.52-1.04) mg/dL Estimated GFR ML/MIN Glucose (74-106) mg/dL Lactic Acid 4.1 H (0.4-2.0) Calcium (8.4-10.2) mg/dL Magnesium (1.6-2.3) mg/dL Total Bilirubin (0.2-1.3) mg/dL AST (14-36) U/L ALT (0-35) U/L Alkaline Phosphatase (38-126) U/L Serum Total Protein (6.3-8.2) g/dL Albumin (3.5-5.0) g/dL Lipase (23-300) U/L Urinalys Dipstick Clnc Urine Color (YELLOW) Urine Appearance (CLEAR) Urine pH (5-6) Ur Specific [place] (1.005-1.025) POC Urine Protein Conf (Negative) Urine Ketones (NEGATIVE) Urine Nitrite (NEGATIVE) Urine Bilirubin (NEGATIVE) Urine Urobilinogen (0-1) mg/dL Urine Leukocytes (NEGATIVE) Urine WBC (Auto) (0-5) /HPF Urine RBC (Auto) (0-2) /HPF U Hyaline Cast (Auto) (0-2) /LPF U Epithel Cells (Auto) (FEW) /HPF Urine Bacteria (Auto) (NEGATIVE) /HPF Urine RBC (0-5) [place]/ul Urine Mucus (Auto) (NEGATIVE) /HPF Ur Culture Indicated? Urine Glucose (NEGATIVE) mg/dL Urine HCG, Qual (Negative) <JOYCE FLOR - Last Filed: 11/04/20 07:02> - Progress Progress: improved Discussed with .: Abelardo Will see patient in: other Counseled pt/family regarding: lab results, diagnosis, rad results, smoking cessation <LENNOX CORONA - Last Filed: 11/04/20 09:06> - Progress Progress Note: 11/04/20 06:38 I reviewed the patient's EMR and it appears that she has had 3 prior episodes of pancreatitis with the most recent episode being in August of this year. She has had an abdominal CT scan in addition to an abdominal MRI all of which showed showed changes consistent with pancreatitis but with no evidence of pancreatic abscess or pseudocyst. The abdominal MRI suggested possible sphincter of Oddi dysfunction. She has had elevated lipases during each episode of pancreatitis. 11/04/20 06:39 Nontoxic appearing 30-year-old female who presents with epigastric pain that radiates to her back and both the left upper quadrant and right upper quadrant of her abdomen. This is highly suggestive of likely an acute on chronic pancreatic flare from an etiology that is unknown at this time. She is tachycardic and markedly hypertensive and she appears to be in mild to moderate distress. Although I did obtain labs including CBC, CMP, lactic acid, UA, UPT, and an EKG as well as a lipase for further evaluation. Her lactate did come back elevated at 4.1 and she is currently receiving IV fluids at this time in addition to pain medications consisting of Dilaudid as well as Protonix and antiemetics currently with IV ondansetron. Pain of her abdomen and pelvis has been ordered to eval for evidence of pancreatitis, evidence of abscess or necr otizing pancreatitis, or pseudocyst. I predict this patient will likely need to be admitted versus transferred depending on the have any docs preference and if she needs to be transferred she will need to go to a facility that has ERCP capability if there is bed availability at this time. Patient care will be transitioned to Dr. Corona pending work-up findings and reassessment 11/04/20 06:49 INSPECT reviewed and the patient's Overdose Risk Score is 350. She had Percocet filled on 10/15 for a total of 90 tablets with a 30 day supply. Cohutta 5/325 filled on 09/24/20 for 90 tablets/30 day supply. Tramadol filled on 08/05 and was getting Alprazolam filled with the last prescription filled on 06/18. (JOYCE FLOR) 11/04/20 08:[address] Corona at approximately [address] Corona advised to follow- up on pending labs and imaging study. Lab work-up reveals a lactic acidosis. Patient has a resting tachycardia. IV fluids infused. Potassium low at 2.6. Potassium replacement ordered. Magnesium order was added to the lab work-up. Magnesium resulted at 1.3. 2 g magnesium sulfate ordered. UA reveals a urinary tract infection. A gram Rocephin ordered. Patient reassessed. She continues to complain of epigastric pain. A second dose of Dilaudid ordered. CT abdomen pelvis with contrast resulted. Mild fat stranding around the panc reatic head compatible with pancreatitis. Mild thickened appearance of adjacent duodenum likely reactive. CT scan findings consistent with acute pancreatitis. Case discussed with Dr. Diop covering Dr. Khan. Dr. Diop advised to contact patient's newspaper editor, Dr. Leroy. Dr. Diop advised transferring patient to hospital of Dr. Leroy's choice. Plan of care discussed with patient. She agrees to treatment being transferred to hospital that Drr. Leroy recommends. Dr. Leroy paged. We are awaiting return call. 11/04/20 08:[address] Leroy who advised keeping patient in our facility to correct electrolytes and manage pain. Dr. Leroy states he will follow up with patient as an outpatient. Repeat lactic acid was 2.7 which is an improvement from the previous 4.1. Case discussed again with Dr. Diop who accepts admission to observation. Plan of care discussed with patient. She agrees to admission to [facility] for further evaluation and treatment. (LENNOX CORONA) <JOYCE FLOR - Last Filed: 11/04/20 07:02> - Departure Departure Disposition: Home Critical Care Time: No <LENNOX CORONA - Last Filed: 11/04/20 09:06> - Departure Clinical Impression: UTI (urinary tract infection), Hypokalemia, Lactic acidosis, Pancreatitis, Nausea and vomiting, Elevated lipase, Hepatomegaly, Hepatic steatosis, Nephrolithiasis, Tachycardia Condition: Stable Referrals: TAMELA KHAN [Primary Care Provider] -
[2020-11-04] MEDS ORDERED: Zofran 4 MG/2 ML VIAL ONE (06:25)
[2020-11-04] MEDS ORDERED: Hydromorphone 1 mg/ml Injection ONE ×2 (06:25→08:40)
[2020-11-04] MEDS ORDERED: Lactated Ringers 1,000 ML IV ONE (06:27)
[2020-11-04] MEDS ORDERED: Lactated Ringers 1,000 ML IV SCH (06:30)
[2020-11-04 06:32] LABS: Absolute Neutrophil Ct (ANC) 6.36 (1.4-6.9); BASOPHIL % 0.3 % (0.0-0.4); Basophil (Absolute #) 0.03 (0-0.4); Eosinophil % 1.6 % (0.00-5.0); Eosinophil (Absolute #) 0.16 (0-0.5); Hematocrit 42.1 % (35-47); Lymphocyte (Absolute #) 3.09 (1.0-4.6); Lymphocytes % 30.1 % (24.0-44.0); Mean Cell Volume 95.2 fl (78-100); Mean Corpuscular Hemoglobin 33.9 pg (26-32); Mean Corpuscular Hgb Concent. 35.6 g/dl (32-36); Mean Platelet Volume 11.9 fl (7.5-11.0); Monocyte (Absolute #) 0.64 (0.0-1.3); Monocytes % 6.2 % (0.0-12.0); Neutrophil % 61.8 % (36.0-66.0); Platelet Count 360 K/mm3 (150-450); Red Blood Count 4.42 M/mm3 (4.1-5.4); Red Cell Distribution Width 17.6 % (11.5-14.0); White Blood Count 10.3 K/mm3 (4.0-10.5)
[2020-11-04 06:33] LABS: Appearance CLOUDY (CLEAR); Dipstick done @ ? MAIN LAB
[2020-11-04 06:34] LABS: Bilirubin MODERATE (NEGATIVE); Glucose NEGATIVE (NEGATIVE); Ketones TRACE (NEGATIVE); Mucus MANY /HPF (NEGATIVE); Nitrite NEGATIVE (NEGATIVE); Protein,Urine Dip >=300 (Negative); RBC TRACE-INTACT Ery/ul (0-5); Specific Gravity >=1.030 (1.005-1.025); Urobilinogen 1 mg/dL (0-1)
[2020-11-04 06:35] LABS: Bacteria FEW /HPF (NEGATIVE); Epithelial Cells FEW /HPF (FEW); Hyaline Casts 26-50 /LPF (0-2)
[2020-11-04 07:01] LABS: ALBUMIN 4.2 g/dL (3.5-5.0); ALKALINE PHOSPHATASE 110 U/L (38-126); BLOOD UREA NITROGEN < 2 mg/dL (7-17); CHLORIDE 103 mmol/L (98-107); Calcium 8.4 mg/dL (8.4-10.2); Carbon Dioxide 23 mmol/L (22-30); Creatinine 1 0.45 mg/dL (0.52-1.04); EST GLOMERULAR FILTRATION RATE > 60.0 ML/MIN; Glucose 127 mg/dL (74-106); LIPASE 632 U/L (23-300); SGOT/AST 60 U/L (14-36); SGPT/ALT 41 U/L (0-35); SODIUM 139 mmol/L (137-145); Total Protein 7.6 g/dL (6.3-8.2)
[2020-11-04 07:02] LABS: Potassium 2.6 mmol/L (3.5-5.1)
[2020-11-04] MEDS ORDERED: ROCEPHIN 1 Gm-D5w 50 ml Bag** 1 G/50 ML IVPB IV STA (07:47)
[2020-11-04] MEDS ORDERED: ROCEPHIN 1 Gm-D5w 50 ml Bag** 1 G/50 ML IVPB IV ONE (08:22)
[2020-11-04] MEDS: Magnesium 1 Gm / 100 Ml D5W*** 100 ML IV SCH ×2 (09:03→09:39)
--- NOTE | 2020-11-04 09:38 | XRAY ---
Exam: CT of the abdomen and pelvis with IV contrast from 11/04/2020. Total DLP: 521.40 mGy-cm Comparison: CT of the abdomen and pelvis without IV contrast from 09/03/2020. Indication: 30-year-old female with left upper quadrant abdominal pain radiating into mid back, emesis for 4 days, history of pancreatitis. The patient has a history of prior appendectomy and cholecystectomy. Technique: Post-IV contrast axial images were obtained through the abdomen and pelvis during automated injection of 80 cc of Isovue-370 contrast material. Reconstructed coronal and sagittal images were created and reviewed. No oral contrast was given. Findings: The visualized lung bases reveal a calcified granuloma at the lateral left lung base. Minimal posterior dependent atelectatic changes are seen within the posterior lung sulci, a bit greater on the right than left. Mild hepatomegaly and diffuse hepatic steatosis are again seen. The right lobe of the liver measures at least 20 cm in length. Surgical clips consistent with prior cholecystectomy are noted within the right upper quadrant. No intrahepatic biliary duct distention is seen. The spleen appears at the upper limits of normal in size measuring 12.0 cm in greatest transverse diameter. Scattered calcified splenic granulomas are again seen. These findings are unchanged from 09/19/2020. There appears to be slight swelling and fat stranding about the pancreatic head with some adjacent mild thickened appearance of the descending duodenum immediately lateral to the pancreatic head. No pancreatic calcifications or significant pancreatic duct distention is seen. There is no focal pancreatic mass, abscess, or significant peripancreatic fluid. The adrenal glands are of normal size and configuration. The kidneys demonstrate a few very small bilateral nonobstructing microcalculi without evidence of hydronephrosis or obstructive uropathy. This is unchanged. Both kidneys function on the delayed images. There is a small extrarenal pelvis on the right. No solid renal mass or other renal cortical contour abnormality is seen. The abdominal aorta reveals no evidence of aneurysm. No abnormal retroperitoneal or mesenteric lymphadenopathy is seen. Tiny protrusion of intraperitoneal fat into the base of the umbilicus on midline sagittal image #94 is seen. No bowel containing ventral hernia or free intraperitoneal air is seen. Some suture material is seen adjacent to the inferior aspect of the sacrum and adjacent region from prior appendectomy. The bowel is nonobstructed. The uterus is anteflexed and appears unremarkable. The pelvic adnexa appear grossly unremarkable. No enlarged pelvic lymph nodes or free intraperitoneal fluid is seen. The urinary bladder is only mildly distended. The inguinal regions appear unremarkable. Skeleton reveals no acute fracture or aggressive bone lesion. Impression: 1. Mild swelling of the pancreatic head with surrounding fat stranding, likely due to pancreatitis. This appears about the same or a bit less pronounced as compared to 09/19/2020. Some adjacent thickened appearance of the descending duodenum is seen, likely reactive. No significant abnormal fluid collection is seen. 2. I again note hepatomegaly with diffuse hepatic steatosis, borderline splenomegaly, a few small bilateral nonobstructing calculi within the kidneys, and evidence of prior cholecystectomy and appendectomy. 3. No other acute process is seen within the abdomen or pelvis.
[2020-11-04] MEDS: POTASSIUM CHLORIDE 20 mEq IN WATER 100ML 20 MEQ/100 ML BAG IV SCH ×4 (10:11→19:54)
[2020-11-04] MEDS: Hydromorphone 1 mg/ml Injection IV PRN ×2 (10:14→12:58)
[2020-11-04] MEDS: Dextrose 5%-Lr IV Solution 1000 ML 1,000 ML IV SCH ×2 (10:53→19:54)
[2020-11-04] MEDS ORDERED: POTASSIUM CHLORIDE 20 mEq IN WATER 100ML 100 ML IV ONE (11:44)
[2020-11-04] MEDS: Zofran 4 MG/2 ML VIAL IV PRN ×3 (12:59→22:46)
[2020-11-04] MEDS ORDERED: DILAUDID 1 MG/1ML PCA IV PRN (13:40)
[2020-11-04] MEDS: Nicoderm CQ 21 MG TOP SCH (13:53)
[2020-11-04] MEDS: Lopressor 50 MG PO SCH ×2 (14:10→22:14)
[2020-11-05] MEDS: Dextrose 5%-Lr IV Solution 1000 ML 1,000 ML IV SCH ×2 (05:59→16:28)
[2020-11-05 06:11] LABS: ALBUMIN 3.5 g/dL (3.5-5.0); ALKALINE PHOSPHATASE 115 U/L (38-126); ANION GAP 8.8 MEQ/L (5-15); BLOOD UREA NITROGEN 5 mg/dL (7-17); CHLORIDE 102 mmol/L (98-107); Calcium 7.9 mg/dL (8.4-10.2); Carbon Dioxide 26 mmol/L (22-30); Creatinine 1 0.38 mg/dL (0.52-1.04); EST GLOMERULAR FILTRATION RATE > 60.0 ML/MIN; Glucose 91 mg/dL (74-106); Potassium 3.5 mmol/L (3.5-5.1); SGOT/AST 43 U/L (14-36); SGPT/ALT 29 U/L (0-35); SODIUM 133 mmol/L (137-145); Total Protein 6.5 g/dL (6.3-8.2)
[2020-11-05 06:19] LABS: MAGNESIUM 1.7 mg/dL (1.6-2.3)
[2020-11-05 06:35] LABS: BASOPHIL % 0.2 % (0.0-0.4); Basophil (Absolute #) 0.02 (0-0.4); Eosinophil % 1.8 % (0.00-5.0); Eosinophil (Absolute #) 0.16 (0-0.5); Hemoglobin 11.8 gm/dl (12.0-16.0); Lymphocyte (Absolute #) 1.35 (1.0-4.6); Lymphocytes % 14.9 % (24.0-44.0); Mean Corpuscular Hemoglobin 33.4 pg (26-32); Mean Corpuscular Hgb Concent. 32.8 g/dl (32-36); Mean Platelet Volume 12.1 fl (7.5-11.0); Monocyte (Absolute #) 0.41 (0.0-1.3); Monocytes % 4.5 % (0.0-12.0); Neutrophil % 78.6 % (36.0-66.0); Platelet Count 196 K/mm3 (150-450); Red Blood Count 3.53 M/mm3 (4.1-5.4); Red Cell Distribution Width 17.1 % (11.5-14.0)
[2020-11-05] MEDS: Lopressor 50 MG PO SCH ×2 (09:11→21:37)
[2020-11-05] MEDS: PROTONIX 40 MG IV IV SCH (09:15)
[2020-11-05] MEDS: ROCEPHIN 1 Gm-D5w 50 ml Bag** 1 G/50 ML IVPB IV SCH (09:16)
[2020-11-05] MEDS ORDERED: PHARMACY DOSING REQUIRED: DILAUDID PCA IV STA (09:57)
[2020-11-05] MEDS: DILAUDID 1 MG/1ML PCA IV PRN (10:14)
[2020-11-05] MEDS: Nicoderm CQ 21 MG TOP SCH (16:37)
[2020-11-05 17:27] LABS: Appearance CLEAR (CLEAR); Leukocyte Esterase NEGATIVE (NEGATIVE); Nitrite COLOR INTERFERENCE (NEGATIVE)
[2020-11-05 17:28] LABS: Bilirubin COLOR INTERFERENCE (NEGATIVE); Blood COLOR INTERFERENCE Ery/ul (0-5); Glucose NEGATIVE (NEGATIVE); Ketones NEGATIVE (NEGATIVE); Protein,Urine Dip 30 (Negative); RBC 0-2 /HPF (0-2); Urobilinogen NORMAL mg/dL (0-1)
[2020-11-05] MEDS: Zofran 4 MG/2 ML VIAL IV PRN ×2 (17:49→23:14)
[2020-11-06] MEDS: Dextrose 5%-Lr IV Solution 1000 ML 1,000 ML IV SCH ×3 (02:26→23:56)
--- NOTE | 2020-11-06 05:06 | PCM.HP ---
History of Present Illness - Chief Complaint Chief Complaint: PANCREATITIS Date: 11/05/20 History of Present Illness: is a 30 year old female who was in good health until she developed pancreatitis April of 2019. Hx endometriosis, renal stones, HTN,anxiety/depression, is S/P cholecystectomy and appendectomy. Patient presented to ER with C/O 4 days of vomiting and diarrhea that started after eating a ham and cheese sandwich at [employer]. ER dg pancreatitis ,UTI, volume depletion, hyponatremia and hypokalemia. This is [facility] 3rd admit for pancreatitis. Hx cholestectectomy as a teenager,thinks due to slow emptying. Denies alcohol abuse, rarely drinks alcohol but 2nd episode of pancreatitis was a few months ago after drinking 4 beers and 2 mixed drinks. States when having mild symptoms, she self treats by not eating for a few days. PCP, Dr Tan, referred her to GI, [place] Jordyn Ler[place] [facility] an abnormal MRCP but she has not seen him yet and he is out of town for 3 weeks. - Review of Systems Constitutional: Fatigue Eyes: No Symptoms Ears, Nose, & Throat: No Symptoms Respiratory: No Symptoms Cardiac: No Symptoms Abdominal/Gastrointestinal: Abdominal Pain (mid,left), Nausea, Vomiting Genitourinary Symptoms: Flank Pain (left) Medications & Allergies Home Medications: Home Medication List Metoprolol Tartrate 50 mg [Lopressor 50 MG] 50 mg PO BID 11/04/20 [History Confirmed 11/04/20] Omeprazole 20 mg PO DAILY PRN PRN 11/04/20 [History Confirmed 11/04/20] Ondansetron ODT 4 MG [Zofran Odt 4 mg] 4 mg PO Q6H PRN PRN 11/04/20 [History Confirmed 11/04/20] Oxycodone HCl/Acetaminophen [Percocet 5-325 mg Tablet] 1 each PO TID PRN 11/04/20 [History Confirmed 11/04/20] Allergies/Adverse Reactions: Allergies Allergy/AdvReac Type Severity Reaction Status Date / Time Penicillins AdvReac Mild Rash Verified 11/04/20 06:08 - Past Medical History Past Medical History: Yes Neurological History: No Pertinent History ENT History: No Pertinent History Cardiac History: Hypertension Respiratory History: No Pertinent History Endocrine Medical History: No Pertinent History Musculoskelatal History: No Pertinent History GI Medical History: Pancreatitis History: Other (kidney stones) Pyscho-Social History: Depression, Panic Disorder Reproductive Disorders: Endometriosis - Female History Hx Last Menstrual Period: 2 weeks Are you now?: No - Past Surgical History Past Surgical History: Yes Neuro Surgical History: No Pertinent History Cardiac History: No Pertinent History Respiratory Surgery: No Pertinent History GI Surgical History: Appendectomy, Cholecystectomy Genitourinary Surgical Hx: No Pertinent History Musculskeletal Surgical Hx: No Pertinent History Female Surgical History: No Pertinent History Other Surgical History: exploratory laparoscopy per Dr Hidalgo 2014- negative, wisdom teeth - Social History Smoking Status: Current every day smoker How long have you smoked: yrs Exposure to second hand smoke: No Alcohol: None Drug Use: none Significant Family History: no pertinent family hx - Physical Exam Vital Signs: Vital Signs - 24 hr Temp Pulse Resp BP Pulse Ox 11/06/20 04:00 98.4 F 102 H 12 155/85 95 11/06/20 00:00 98.2 F 88 13 135/66 97 11/05/20 21:43 95 11/05/20 20:00 17 11/05/20 19:39 98.4 F 103 H 17 149/82 95 11/05/20 18:57 96 11/05/20 16:00 98.1 F 91 H 20 151/89 97 11/05/20 11:57 98.5 F 79 18 130/70 96 11/05/20 08:00 20 11/05/20 07:51 98.3 F 89 20 165/99 97 11/05/20 06:05 94 L Oxygen-Last 24 hours Oxygen Flowrate (L/min)-RT 2 General Appearance: mild distress Neurologic Exam: alert, oriented x 3 (abdominal discomfort) Eye Exam: PERRL/EOMI, eyes nml inspection Ears, Nose, Throat Exam: normal ENT inspection Neck Exam: normal inspection Respiratory Exam: diminished breath sounds (base,guarding due to abd pain and not taking full deep breath. No wheeze or ronchi or rales) Cardiovascular Exam: regular rate/rhythm, normal heart sounds Gastrointestinal/Abdomen Exam: tenderness (periumbilical LUQ,left flank,no CVA tenderness), distention, guarding Pelvic Exam: not done Rectal Exam: not done Results - Labs Lab/Micro Results: Lab Results-Last 24 Hours 11/05/20 11/05/20 11/05/20 Range/Units 04:25 04:25 04:25 WBC 9.0 (4.0-10.5) K/mm3 RBC 3.53 L (4.1-5.4) M/mm3 Hgb 11.8 L D (12.0-16.0) gm/dl Hct 36.0 (35-47) % MCV 102.0 H D (78-100) fl MCH 33.4 H (26-32) pg MCHC 32.8 (32-36) g/dl RDW 17.1 H (11.5-14.0) % Plt Count 196 D (150-450) K/mm3 MPV 12.1 H (7.5-11.0) fl Gran % 78.6 H (36.0-66.0) % Eos # (Auto) 0.16 (0-0.5) Absolute Lymphs (auto) 1.35 (1.0-4.6) Absolute Monos (auto) 0.41 (0.0-1.3) Lymphocytes % 14.9 L (24.0-44.0) % Monocytes % 4.5 (0.0-12.0) % Eosinophils % 1.8 (0.00-5.0) % Basophils % 0.2 (0.0-0.4) % Absolute Granulocytes 7.10 H (1.4-6.9) Basophils # 0.02 (0-0.4) Sodium 133 L (137-145) mmol/L Potassium 3.5 (3.5-5.1) mmol/L Chloride 102 (98-107) mmol/L Carbon Dioxide 26 (22-30) mmol/L Anion Gap 8.8 (5-15) MEQ/L BUN 5 L (7-17) mg/dL Creatinine 0.38 L (0.52-1.04) mg/dL Estimated GFR > 60.0 ML/MIN Glucose 91 (74-106) mg/dL Calcium 7.9 L (8.4-10.2) mg/dL Magnesium 1.7 (1.6-2.3) mg/dL Total Bilirubin 2.60 H (0.2-1.3) mg/dL AST 43 H (14-36) U/L ALT 29 (0-35) U/L Alkaline Phosphatase 115 (38-126) U/L Serum Total Protein 6.5 (6.3-8.2) g/dL Albumin 3.5 (3.5-5.0) g/dL Amylase 828 H (30-110) U/L Lipase 5790 H (23-300) U/L Urine Color (YELLOW) Urine Appearance (CLEAR) Urine pH (5-6) Ur Specific [place]key[place] (1.005-1.025) Urine Protein (Negative) Urine Ketones (NEGATIVE) Urine Blood (0-5) Boone/ul Urine Nitrite (NEGATIVE) Urine Bilirubin (NEGATIVE) Urine Urobilinogen (0-1) mg/dL Ur Leukocyte Esterase (NEGATIVE) Urine WBC (Auto) (0-5) /HPF Urine RBC (Auto) (0-2) /HPF U Epithel Cells (Auto) (FEW) /HPF Urine Bacteria (Auto) (NEGATIVE) /HPF Urine Culture Reflexed (NO) Urine Glucose (NEGATIVE) mg/dL 11/05/20 Range/Units 13:21 WBC (4.0-10.5) K/mm3 RBC (4.1-5.4) M/mm3 Hgb (12.0-16.0) gm/dl Hct (35-47) % MCV (78-100) fl MCH (26-32) pg MCHC (32-36) g/dl RDW (11.5-14.0) % Plt Count (150-450) K/mm3 MPV (7.5-11.0) fl Gran % (36.0-66.0) % Eos # (Auto) (0-0.5) Absolute Lymphs (auto) (1.0-4.6) Absolute Monos (auto) (0.0-1.3) Lymphocytes % (24.0-44.0) % Monocytes % (0.0-12.0) % Eosinophils % (0.00-5.0) % Basophils % (0.0-0.4) % Absolute Granulocytes (1.4-6.9) Basophils # (0-0.4) Sodium (137-145) mmol/L Potassium (3.5-5.1) mmol/L Chloride (98-107) mmol/L Carbon Dioxide (22-30) mmol/L Anion Gap (5-15) MEQ/L BUN (7-17) mg/dL Creatinine (0.52-1.04) mg/dL Estimated GFR ML/MIN Glucose (74-106) mg/dL Calcium (8.4-10.2) mg/dL Magnesium (1.6-2.3) mg/dL Total Bilirubin (0.2-1.3) mg/dL AST (14-36) U/L ALT (0-35) U/L Alkaline Phosphatase (38-126) U/L Serum Total Protein (6.3-8.2) g/dL Albumin (3.5-5.0) g/dL Amylase (30-110) U/L Lipase (23-300) U/L Urine Color ORANGE (YELLOW) Urine Appearance CLEAR (CLEAR) Urine pH 7.0 (5-6) Ur Specific Hawkeye 1.020 (1.005-1.025) Urine Protein 30 (Negative) Urine Ketones NEGATIVE (NEGATIVE) Urine Blood COLOR INTERFERENCE (0-5) Boone/ul Urine Nitrite COLOR INTERFERENCE (NEGATIVE) Urine Bilirubin COLOR INTERFERENCE (NEGATIVE) Urine Urobilinogen NORMAL (0-1) mg/dL Ur Leukocyte Esterase NEGATIVE (NEGATIVE) Urine WBC (Auto) 3-5 (0-5) /HPF Urine RBC (Auto) 0-2 (0-2) /HPF U Epithel Cells (Auto) NONE (FEW) /HPF Urine Bacteria (Auto) NONE (NEGATIVE) /HPF Urine Culture Reflexed 0 (NO) Urine Glucose NEGATIVE (NEGATIVE) mg/dL Microbiology 11/04/20 06:12 Urine Culture - Final Clean Catch Midstream MIXED STACY; 3 OR MORE TYPES. NO PREDOMINANT ORGANISM. NO FURTHER WORKUP. PLEASE RESUBMIT IF CLINICALLY INDICATED. - Radiology Impressions Radiology Exams & Impressions: Radiology Procedures Category Date Time Status ABDOMEN AND PELVIS W CONTRAST [CT] Stat Exams 11/04/20 06:32 Completed MRI ABD W/O CONTRAST [MRI] Routine Exams 11/06/20 08:00 Ordered - Other Procedures and Tests Respiratory Therapy 11/05/20 22:39 Oxygen NASAL CANNULA 2 lpm Assessment/Plan (1) Pancreatitis Current Visit: Yes Status: Acute Qualifiers: Pancreatitis type: unspecified pancreatitis type Acute pancreatitis complication: unspecified Assessment & Plan: NPO,refused NGT -no vomiting Code(s): K85.90 - ACUTE PANCREATITIS WITHOUT NECROSIS OR INFECTION, UNSP (2) Hypokalemia Current Visit: Yes Status: Acute Assessment & Plan: Krider 40 meq then retest electolytes Code(s): E87.6 - HYPOKALEMIA (3) UTI (urinary tract infection) Current Visit: Yes Status: Acute Assessment & Plan: culture panding Code(s): N39.0 - URINARY TRACT INFECTION, SITE NOT SPECIFIED (4) Nephrolithiasis Current Visit: Yes Status: Chronic Assessment & Plan: left kidney - not obstructing (5) Vomiting Current Visit: Yes Status: Resolved Code(s): R11.10 - VOMITING, UNSPECIFIED (6) Volume depletion Current Visit: Yes Status: Acute Assessment & Plan: IV lactated ringers started in ER,monitor Code(s): E86.9 - VOLUME DEPLETION, UNSPECIFIED
[2020-11-06 05:08] LABS: Absolute Neutrophil Ct (ANC) 10.03 (1.4-6.9); BASOPHIL % 0.1 % (0.0-0.4); Basophil (Absolute #) 0.01 (0-0.4); Eosinophil (Absolute #) 0.25 (0-0.5); Hematocrit 34.4 % (35-47); Hemoglobin 11.3 gm/dl (12.0-16.0); Lymphocyte (Absolute #) 1.85 (1.0-4.6); Lymphocytes % 14.9 % (24.0-44.0); Mean Cell Volume 102.4 fl (78-100); Mean Corpuscular Hemoglobin 33.6 pg (26-32); Mean Corpuscular Hgb Concent. 32.8 g/dl (32-36); Mean Platelet Volume 10.5 fl (7.5-11.0); Monocyte (Absolute #) 0.25 (0.0-1.3); Platelet Count 158 K/mm3 (150-450); Red Blood Count 3.36 M/mm3 (4.1-5.4); Red Cell Distribution Width 16.7 % (11.5-14.0); White Blood Count 12.4 K/mm3 (4.0-10.5)
[2020-11-06 05:26] LABS: ALBUMIN 3.5 g/dL (3.5-5.0); ALKALINE PHOSPHATASE 131 U/L (38-126); AMYLASE 403 U/L (30-110); ANION GAP 10.6 MEQ/L (5-15); BLOOD UREA NITROGEN 4 mg/dL (7-17); CHLORIDE 95 mmol/L (98-107); Calcium 7.8 mg/dL (8.4-10.2); Carbon Dioxide 30 mmol/L (22-30); Creatinine 1 0.36 mg/dL (0.52-1.04); EST GLOMERULAR FILTRATION RATE > 60.0 ML/MIN; Glucose 78 mg/dL (74-106); LIPASE 1444 U/L (23-300); Potassium 3.2 mmol/L (3.5-5.1); SGOT/AST 51 U/L (14-36); SGPT/ALT 25 U/L (0-35); SODIUM 133 mmol/L (137-145); Total Protein 6.6 g/dL (6.3-8.2)
[2020-11-06] MEDS: DILAUDID 1 MG/1ML PCA IV PRN (06:20)
[2020-11-06] MEDS: Zofran 4 MG/2 ML VIAL IV PRN (08:38)
[2020-11-06] MEDS: ROCEPHIN 1 Gm-D5w 50 ml Bag** 1 G/50 ML IVPB IV SCH (09:19)
[2020-11-06] MEDS: PROTONIX 40 MG IV IV SCH (09:19)
[2020-11-06] MEDS: Lopressor 50 MG PO SCH ×2 (09:19→22:10)
[2020-11-06] MEDS ORDERED: Sodium Chloride 0.9% W/ 20 mEq KCl/LITER 1,000 ML IV SCH (11:00)
[2020-11-06] MEDS: Nicoderm CQ 21 MG TOP SCH (12:05)
--- NOTE | 2020-11-06 14:17 | PCM.NOTE ---
Date and Time: 11/06/20 1412 Subjective Assessment: Patient had an increase in amylase from 632 in ER to 5,790 and required an increase in pain pump. Patient has no appetite and remains NPO,denies nausea except when IV infiltrated and pain pump was off. Had a soft but formed stool this morning. Today amylase is down to 1,444, Total bilirubin =2.20 ,very mild elevation liver enzymes. MRCP was completed this morning. Anticipate need for ERCP . Patient would like to go to GI at [facility]. Appt made with Dr Ferrera for NOV 12Wednesday at 10:30 AM. Will try to clear liquid diet. If not improving may need to transfer to care of GI. Objective Exam General Appearance: mild distress Neurologic Exam: alert, oriented x 3, cooperative, normal mood/affect Skin Exam: normal color, warm, dry, other (no jaundice) Eye Exam: eyes nml inspection, other (nonicteric) Respiratory Exam: other (still left upper abd pain with deep breath,no rales or ronchi or wheezing.is requiring O2, Is on O2 2L) Cardiovascular Exam: other (regular ,rate 90) Gastrointestinal/Abdomen Exam: soft (decreased bowel sounds), tenderness (Left upper and mid abdominal tenderness 2+/4,improved) Extremity Exam: normal inspection (no edema) Back Exam: normal inspection, other (no CVA tenderness) OBJECTIVE DATA Vital Signs: Vital Signs - 24 hr Temp Pulse Resp BP Pulse Ox 11/06/20 12:00 98.3 F 98 H 20 120/70 97 11/06/20 08:43 96 11/06/20 08:00 96 11/06/20 07:34 98.6 F 105 H 20 127/64 97 11/06/20 06:20 92 L 11/06/20 04:00 98.4 F 102 H 12 155/85 95 11/06/20 00:00 98.2 F 88 13 135/66 97 11/05/20 21:43 95 11/05/20 20:00 17 11/05/20 19:39 98.4 F 103 H 17 149/82 95 11/05/20 18:57 96 11/05/20 16:00 98.1 F 91 H 20 151/89 97 Oxygen-Last 24 hours Oxygen Flowrate (L/min)-RT 2 Pain Assessment - Last Documented Pain Intensity 7 Pain Scale Used 0-10 Pain Scale Intake and Output: Intake & Output 11/04/20 11/05/20 11/06/20 11/07/20 11:59 11:59 11:59 11:59 Intake Total 198 0 240 Output Total 250 200 Balance -52 -200 240 Weight 70.579 kg Lab Results: Lab Results-Last 24 Hours 11/05/20 11/06/20 11/06/20 Range/Units 13:21 05:07 05:07 WBC 12.4 H (4.0-10.5) K/mm3 RBC 3.36 L (4.1-5.4) M/mm3 Hgb 11.3 L (12.0-16.0) gm/dl Hct 34.4 L (35-47) % MCV 102.4 H (78-100) fl MCH 33.6 H (26-32) pg MCHC 32.8 (32-36) g/dl RDW 16.7 H (11.5-14.0) % Plt Count 158 (150-450) K/mm3 MPV 10.5 (7.5-11.0) fl Gran % 81.0 H (36.0-66.0) % Eos # (Auto) 0.25 (0-0.5) Absolute Lymphs (auto) 1.85 (1.0-4.6) Absolute Monos (auto) 0.25 (0.0-1.3) Lymphocytes % 14.9 L (24.0-44.0) % Monocytes % 2.0 (0.0-12.0) % Eosinophils % 2.0 (0.00-5.0) % Basophils % 0.1 (0.0-0.4) % Absolute Granulocytes 10.03 H (1.4-6.9) Basophils # 0.01 (0-0.4) Sodium 133 L (137-145) mmol/L Potassium 3.2 L (3.5-5.1) mmol/L Chloride 95 L (98-107) mmol/L Carbon Dioxide 30 (22-30) mmol/L Anion Gap 10.6 (5-15) MEQ/L BUN 4 L (7-17) mg/dL Creatinine 0.36 L (0.52-1.04) mg/dL Estimated GFR > 60.0 ML/MIN Glucose 78 (74-106) mg/dL Calcium 7.8 L (8.4-10.2) mg/dL Total Bilirubin 2.20 H (0.2-1.3) mg/dL AST 51 H (14-36) U/L ALT 25 (0-35) U/L Alkaline Phosphatase 131 H (38-126) U/L Serum Total Protein 6.6 (6.3-8.2) g/dL Albumin 3.5 (3.5-5.0) g/dL Amylase 403 H (30-110) U/L Lipase 1444 H (23-300) U/L Urine Color ORANGE (YELLOW) Urine Appearance CLEAR (CLEAR) Urine pH 7.0 (5-6) Ur Specific G[place]mith 1.020 (1.005-1.025) Urine Protein 30 (Negative) Urine Ketones NEGATIVE (NEGATIVE) Urine Blood COLOR INTERFERENCE (0-5) Boone/ul Urine Nitrite COLOR INTERFERENCE (NEGATIVE) Urine Bilirubin COLOR INTERFERENCE (NEGATIVE) Urine Urobilinogen NORMAL (0-1) mg/dL Ur Leukocyte Esterase NEGATIVE (NEGATIVE) Urine WBC (Auto) 3-5 (0-5) /HPF Urine RBC (Auto) 0-2 (0-2) /HPF U Epithel Cells (Auto) NONE (FEW) /HPF Urine Bacteria (Auto) NONE (NEGATIVE) /HPF Urine Culture Reflexed 0 (NO) Urine Glucose NEGATIVE (NEGATIVE) mg/dL Radiology Exams: Radiology Procedures Category Date Time Status MRI ABD W/O CONTRAST [MRI] Routine Exams 11/06/20 08:00 Ordered Assessment/Plan (1) Pancreatitis Current Visit: Yes Status: Acute Qualifiers: Pancreatitis type: biliary Acute pancreatitis complication: unspecified Assessment & Plan: I placed a call to Dr Ferrera at [facility] to discuss Tx and possibility of transfer if not improved,have not been able to speak to him yet. Is still NPO,enzymes have improved but still elevated,will try clear liquid diet to tolerance. Code(s): K85.90 - ACUTE PANCREATITIS WITHOUT NECROSIS OR INFECTION, UNSP (2) Hyponatremia Current Visit: Yes Status: Acute Assessment & Plan: IV fluids adjusted ,d/c Lactated Ringers-start IV D5NS with 20 KCl x1 liter,may try sips of broth .Monitor AM labs Code(s): E87.1 - HYPO-OSMOLALITY AND HYPONATREMIA (3) Hypokalemia Current Visit: Yes Status: Acute Assessment & Plan: IV potassium,monitor labs Code(s): E87.6 - HYPOKALEMIA
--- NOTE | 2020-11-06 16:25 | XRAY ---
Indication: Pancreatitis. Cholecystectomy. Conventional MRCP performed. Comparison: September 20, 2020. Gallbladder again surgically absent. Biliary tree including common bile duct remains normal in course and caliber without filling defect or choledochal stone. Distal common bile duct/ampulla again tapers as it empties into the second portion of the duodenum. Again sphincter of Jaycob dysfunction not completely excluded in the right clinical setting. Pancreatic duct up to 3 mm throughout the pancreas. There is no suspicious solid/cystic pancreatic mass. Stomach and visualized bowel loops appear nonobstructed. Remaining visualized liver, spleen, adrenal glands, kidneys, aorta, and IVC are unremarkable. No abnormal bone marrow signal. Impression: 1. Stable tapering of distal common bile duct/ampulla. Again rule out sphincter of Jaycob dysfunction. 2. Remaining MRCP is negative.
[2020-11-07 04:46] LABS: BASOPHIL % 0.2 % (0.0-0.4); Basophil (Absolute #) 0.02 (0-0.4); Eosinophil % 1.4 % (0.00-5.0); Eosinophil (Absolute #) 0.15 (0-0.5); Hematocrit 31.2 % (35-47); Hemoglobin 10.1 gm/dl (12.0-16.0); Lymphocyte (Absolute #) 1.15 (1.0-4.6); Lymphocytes % 10.6 % (24.0-44.0); Mean Cell Volume 104.7 fl (78-100); Mean Corpuscular Hemoglobin 33.9 pg (26-32); Mean Corpuscular Hgb Concent. 32.4 g/dl (32-36); Mean Platelet Volume 11.6 fl (7.5-11.0); Monocyte (Absolute #) 0.17 (0.0-1.3); Monocytes % 1.6 % (0.0-12.0); Neutrophil % 86.2 % (36.0-66.0); Platelet Count 142 K/mm3 (150-450); Red Blood Count 2.98 M/mm3 (4.1-5.4); Red Cell Distribution Width 16.7 % (11.5-14.0); White Blood Count 10.9 K/mm3 (4.0-10.5)
[2020-11-07 05:04] LABS: ALBUMIN 3.3 g/dL (3.5-5.0); ALKALINE PHOSPHATASE 154 U/L (38-126); AMYLASE 118 U/L (30-110); CHLORIDE 99 mmol/L (98-107); Calcium 7.9 mg/dL (8.4-10.2); Carbon Dioxide 28 mmol/L (22-30); Creatinine 1 0.31 mg/dL (0.52-1.04); EST GLOMERULAR FILTRATION RATE > 60.0 ML/MIN; Glucose 84 mg/dL (74-106); LIPASE 135 U/L (23-300); Potassium 3.1 mmol/L (3.5-5.1); SGOT/AST 38 U/L (14-36); SGPT/ALT 20 U/L (0-35); SODIUM 133 mmol/L (137-145); Total Protein 6.5 g/dL (6.3-8.2)
[2020-11-07 05:21] LABS: BLOOD UREA NITROGEN 2 mg/dL (7-17)
[2020-11-07] MEDS: Dextrose 5%-Lr IV Solution 1000 ML 1,000 ML IV SCH ×2 (05:29→21:52)
[2020-11-07] MEDS: DILAUDID 1 MG/1ML PCA IV PRN (05:34)
[2020-11-07] MEDS: PROTONIX 40 MG IV IV SCH (09:34)
[2020-11-07] MEDS: Lopressor 50 MG PO SCH ×2 (09:34→21:43)
[2020-11-07] MEDS: ROCEPHIN 1 Gm-D5w 50 ml Bag** 1 G/50 ML IVPB IV SCH (09:34)
[2020-11-07] MEDS: PERCOCET TABLET 5/325MG PO PRN ×3 (09:43→22:25)
[2020-11-07] MEDS: Hydromorphone 1 mg/ml Injection IV PRN ×3 (11:06→21:44)
[2020-11-07] MEDS: Sodium Chloride 0.9% W/ 20 mEq KCl/LITER 1,000 ML IV SCH (13:25)
[2020-11-07] MEDS: DULCOLAX 5 MG PO SCH (13:25)
[2020-11-07] MEDS: Nicoderm CQ 21 MG TOP SCH (13:25)
--- NOTE | 2020-11-07 21:41 | PCM.NOTE ---
Date and Time: 11/07/202139 <ANNIE HUTCHISON - Last Filed: 11/07/20 21:40> Date and Time: 11/07/202201 <LUIS E RAUSCH - Last Filed: 11/07/20 22:03> OBJECTIVE DATA Vital Signs: Vital Signs - 24 hr Temp Pulse Resp BP Pulse Ox 11/07/20 20:00 98.2 F 98 H 23 141/87 98 11/07/20 19:20 97 11/07/20 16:00 98.3 F 94 H 16 131/82 97 11/07/20 12:00 98.1 F 88 16 128/79 98 11/07/20 09:44 95 11/07/20 08:00 95 11/07/20 07:42 98.2 F 100 H 16 137/82 95 11/07/20 05:34 94 L 11/07/20 04:00 99 F 108 H 18 132/74 97 11/07/20 00:00 98.4 F 88 16 122/73 97 Oxygen-Last 24 hours Oxygen Flowrate (L/min)-RT 2 Pain Assessment - Last Documented Pain Intensity 7 Pain Scale Used 0-10 Pain Scale Intake and Output: Intake & Output 11/05/20 11/06/20 11/07/20 11/08/20 11:59 11:59 11:59 11:59 Intake Total 198 0 1513 1623 Output Total 250 200 500 Balance -52 -200 1013 1623 Weight 70.579 kg Lab Results: Lab Results-Last 24 Hours 11/07/20 11/07/20 Range/Units 04:38 04:38 WBC 10.9 H (4.0-10.5) K/mm3 RBC 2.98 L (4.1-5.4) M/mm3 Hgb 10.1 L (12.0-16.0) gm/dl Hct 31.2 L (35-47) % MCV 104.7 H (78-100) fl MCH 33.9 H (26-32) pg MCHC 32.4 (32-36) g/dl RDW 16.7 H (11.5-14.0) % Plt Count 142 L (150-450) K/mm3 MPV 11.6 H (7.5-11.0) fl Gran % 86.2 H (36.0-66.0) % Eos # (Auto) 0.15 (0-0.5) Absolute Lymphs (auto) 1.15 (1.0-4.6) Absolute Monos (auto) 0.17 (0.0-1.3) Lymphocytes % 10.6 L (24.0-44.0) % Monocytes % 1.6 (0.0-12.0) % Eosinophils % 1.4 (0.00-5.0) % Basophils % 0.2 (0.0-0.4) % Absolute Granulocytes 9.40 H (1.4-6.9) Basophils # 0.02 (0-0.4) Sodium 133 L (137-145) mmol/L Potassium 3.1 L (3.5-5.1) mmol/L Chloride 99 (98-107) mmol/L Carbon Dioxide 28 (22-30) mmol/L Anion Gap 9.0 (5-15) MEQ/L BUN 2 L (7-17) mg/dL Creatinine 0.31 L (0.52-1.04) mg/dL Estimated GFR > 60.0 ML/MIN Glucose 84 (74-106) mg/dL Calcium 7.9 L (8.4-10.2) mg/dL Total Bilirubin 1.40 H (0.2-1.3) mg/dL AST 38 H (14-36) U/L ALT 20 (0-35) U/L Alkaline Phosphatase 154 H (38-126) U/L Serum Total Protein 6.5 (6.3-8.2) g/dL Albumin 3.3 L (3.5-5.0) g/dL Amylase 118 H (30-110) U/L Lipase 135 (23-300) U/L Radiology Exams: Radiology Procedures Category Date Time Status MRI ABD W/O CONTRAST [MRI] Routine Exams 11/06/20 08:00 Completed Multi-Disciplinary Progress Notes: Multi-Disciplinary Progress Notes 11/07/20 15:08 Case Management Note by Breanna Culver NO CHANGE IN DC PLANS AT THIS TIME Initialized on 11/07/20 15:08 - END OF NOTE <ANNIE HUTCHISON - Last Filed: 11/07/20 21:40> Vital Signs: Vital Signs - 24 hr Temp Pulse Resp BP Pulse Ox 12/17/20 20:00 98.2 F 98 H 23 141/87 98 11/07/20 19:20 97 11/07/20 16:00 98.3 F 94 H 16 131/82 97 11/07/20 12:00 98.1 F 88 16 128/79 98 11/07/20 09:44 95 11/07/20 08:00 95 11/07/20 07:42 98.2 F 100 H 16 137/82 95 11/07/20 05:34 94 L 11/07/20 04:00 99 F 108 H 18 132/74 97 11/07/20 00:00 98.4 F 88 16 122/73 97 Oxygen-Last 24 hours Oxygen Flowrate (L/min)-RT 2 Pain Assessment - Last Documented Pain Intensity 10 Pain Scale Used 0-10 Pain Scale Intake and Output: Intake & Output 11/05/20 11/06/20 11/07/20 11/08/20 11:59 11:59 11:59 11:59 Intake Total 198 0 1513 1623 Output Total 250 200 500 Balance -52 -200 1013 1623 Weight 70.579 kg Lab Results: Lab Results-Last 24 Hours 11/07/20 11/07/20 Range/Units 04:38 04:38 WBC 10.9 H (4.0-10.5) K/mm3 RBC 2.98 L (4.1-5.4) M/mm3 Hgb 10.1 L (12.0-16.0) gm/dl Hct 31.2 L (35-47) % MCV 104.7 H (78-100) fl MCH 33.9 H (26-32) pg MCHC 32.4 (32-36) g/dl RDW 16.7 H (11.5-14.0) % Plt Count 142 L (150-450) K/mm3 MPV 11.6 H (7.5-11.0) fl Gran % 86.2 H (36.0-66.0) % Eos # (Auto) 0.15 (0-0.5) Absolute Lymphs (auto) 1.15 (1.0-4.6) Absolute Monos (auto) 0.17 (0.0-1.3) Lymphocytes % 10.6 L (24.0-44.0) % Monocytes % 1.6 (0.0-12.0) % Eosinophils % 1.4 (0.00-5.0) % Basophils % 0.2 (0.0-0.4) % Absolute Granulocytes 9.40 H (1.4-6.9) Basophils # 0.02 (0-0.4) Sodium 133 L (137-145) mmol/L Potassium 3.1 L (3.5-5.1) mmol/L Chloride 99 (98-107) mmol/L Carbon Dioxide 28 (22-30) mmol/L Anion Gap 9.0 (5-15) MEQ/L BUN 2 L (7-17) mg/dL Creatinine 0.31 L (0.52-1.04) mg/dL Estimated GFR > 60.0 ML/MIN Glucose 84 (74-106) mg/dL Calcium 7.9 L (8.4-10.2) mg/dL Total Bilirubin 1.40 H (0.2-1.3) mg/dL AST 38 H (14-36) U/L ALT 20 (0-35) U/L Alkaline Phosphatase 154 H (38-126) U/L Serum Total Protein 6.5 (6.3-8.2) g/dL Albumin 3.3 L (3.5-5.0) g/dL Amylase 118 H (30-110) U/L Lipase 135 (23-300) U/L Radiology Exams: Radiology Procedures Category Date Time Status MRI ABD W/O CONTRAST [MRI] Routine Exams 11/06/20 08:00 Completed Multi-Disciplinary Progress Notes: Multi-Disciplinary Progress Notes 11/07/20 15:08 Case Management Note by Breanna Culver NO CHANGE IN DC PLANS AT THIS TIME Initialized on 11/07/20 15:08 - END OF NOTE <LUIS E RAUSCH - Last Filed: 11/07/20 22:03> Assessment/Plan (1) Pancreatitis Current Visit: Yes Status: Acute Qualifiers: Pancreatitis type: unspecified pancreatitis type Acute pancreatitis complication: unspecified Code(s): K85.90 - ACUTE PANCREATITIS WITHOUT NECROSIS OR INFECTION, UNSP (2) Hypokalemia Current Visit: Yes Status: Acute Code(s): E87.6 - HYPOKALEMIA (3) UTI (urinary tract infection) Current Visit: Yes Status: Acute Code(s): N39.0 - URINARY TRACT INFECTION, SITE NOT SPECIFIED (4) Nephrolithiasis Current Visit: Yes Status: Chronic (5) Vomiting Current Visit: Yes Status: Resolved Code(s): R11.10 - VOMITING, UNSPECIFIED (6) Volume depletion Current Visit: Yes Status: Acute Code(s): E86.9 - VOLUME DEPLETION, UNSPECIFIED <LUIS E RAUSCH - Last Filed: 11/07/20 22:03>
[2020-11-07] MEDS: Zofran 4 MG/2 ML VIAL IV PRN (22:26)
[2020-11-08] MEDS: Hydromorphone 1 mg/ml Injection IV PRN ×5 (03:11→22:40)
[2020-11-08 05:15] LABS: Absolute Neutrophil Ct (ANC) 5.04 (1.4-6.9); BASOPHIL % 0.1 % (0.0-0.4); Basophil (Absolute #) 0.01 (0-0.4); Eosinophil % 1.9 % (0.00-5.0); Eosinophil (Absolute #) 0.13 (0-0.5); Hematocrit 27.5 % (35-47); Hemoglobin 8.9 gm/dl (12.0-16.0); Lymphocyte (Absolute #) 1.39 (1.0-4.6); Lymphocytes % 20.2 % (24.0-44.0); Mean Cell Volume 105.4 fl (78-100); Mean Corpuscular Hemoglobin 34.1 pg (26-32); Mean Corpuscular Hgb Concent. 32.4 g/dl (32-36); Mean Platelet Volume 10.9 fl (7.5-11.0); Monocyte (Absolute #) 0.32 (0.0-1.3); Monocytes % 4.6 % (0.0-12.0); Neutrophil % 73.2 % (36.0-66.0); Platelet Count 120 K/mm3 (150-450); Red Blood Count 2.61 M/mm3 (4.1-5.4); Red Cell Distribution Width 16.6 % (11.5-14.0); White Blood Count 6.9 K/mm3 (4.0-10.5)
[2020-11-08 05:50] LABS: ALBUMIN 2.9 g/dL (3.5-5.0); ALKALINE PHOSPHATASE 142 U/L (38-126); AMYLASE 62 U/L (30-110); ANION GAP 5.8 MEQ/L (5-15); CHLORIDE 103 mmol/L (98-107); Carbon Dioxide 28 mmol/L (22-30); Creatinine 1 0.27 mg/dL (0.52-1.04); EST GLOMERULAR FILTRATION RATE > 60.0 ML/MIN; Glucose 96 mg/dL (74-106); LIPASE 203 U/L (23-300); Potassium 3.1 mmol/L (3.5-5.1); SGOT/AST 28 U/L (14-36); SGPT/ALT 15 U/L (0-35); SODIUM 134 mmol/L (137-145); Total Protein 5.8 g/dL (6.3-8.2)
[2020-11-08 05:55] LABS: BLOOD UREA NITROGEN < 2 mg/dL (7-17)
[2020-11-08] MEDS: DULCOLAX 5 MG PO SCH (07:50)
[2020-11-08] MEDS: Dextrose 5%-Lr IV Solution 1000 ML 1,000 ML IV SCH (08:12)
--- NOTE | 2020-11-08 08:35 | PCM.NOTE ---
Date and Time: 11/08/20 0832 Subjective Assessment: patient reports she did not tolerate full liquids well yesterday, still has significant pain and nausea, no vomiting thus far this morning but does not feel as well as she did 2 days ago. Objective Exam General Appearance: no apparent distress, alert Respiratory Exam: normal breath sounds, lungs clear, No respiratory distress Cardiovascular Exam: regular rate/rhythm, normal heart sounds Gastrointestinal/Abdomen Exam: soft, normal bowel sounds, tenderness (epigastrium), No distention, No mass, No guarding, No rebound Extremity Exam: normal inspection, normal range of motion OBJECTIVE DATA Vital Signs: Vital Signs - 24 hr Temp Pulse Resp BP Pulse Ox 11/08/20 08:00 20 11/08/20 07:43 97.6 F 94 H 20 145/85 98 11/08/20 04:00 97.2 F 90 22 134/83 98 11/08/20 00:00 97.9 F 87 17 151/88 98 11/07/20 20:00 98.2 F 98 H 23 141/87 98 11/07/20 19:20 97 11/07/20 16:00 98.3 F 94 H 16 131/82 97 11/07/20 12:00 98.1 F 88 16 128/79 98 11/07/20 09:44 95 Pain Assessment - Last Documented Pain Intensity 9 Pain Scale Used [facility] Intake and Output: Intake & Output 11/05/20 11/06/20 11/07/20 11/08/20 11:59 11:59 11:59 11:59 Intake Total 198 0 1513 3199 Output Total 250 200 500 Balance -52 -200 1013 3199 Weight 70.579 kg Lab Results: Lab Results-Last 24 Hours 11/08/20 11/08/20 Range/Units 04:48 04:48 WBC 6.9 (4.0-10.5) K/mm3 RBC 2.61 L (4.1-5.4) M/mm3 Hgb 8.9 L (12.0-16.0) gm/dl Hct 27.5 L (35-47) % MCV 105.4 H (78-100) fl MCH 34.1 H (26-32) pg MCHC 32.4 (32-36) g/dl RDW 16.6 H (11.5-14.0) % Plt Count 120 L (150-450) K/mm3 MPV 10.9 (7.5-11.0) fl Gran % 73.2 H (36.0-66.0) % Eos # (Auto) 0.13 (0-0.5) Absolute Lymphs (auto) 1.39 (1.0-4.6) Absolute Monos (auto) 0.32 (0.0-1.3) Lymphocytes % 20.2 L (24.0-44.0) % Monocytes % 4.6 (0.0-12.0) % Eosinophils % 1.9 (0.00-5.0) % Basophils % 0.1 (0.0-0.4) % Absolute Granulocytes 5.04 (1.4-6.9) Basophils # 0.01 (0-0.4) Sodium 134 L (137-145) mmol/L Potassium 3.1 L (3.5-5.1) mmol/L Chloride 103 (98-107) mmol/L Carbon Dioxide 28 (22-30) mmol/L Anion Gap 5.8 (5-15) MEQ/L BUN < 2 L (7-17) mg/dL Creatinine 0.27 L (0.52-1.04) mg/dL Estimated GFR > 60.0 ML/MIN Glucose 96 (74-106) mg/dL Calcium 8.0 L (8.4-10.2) mg/dL Total Bilirubin 0.70 (0.2-1.3) mg/dL AST 28 (14-36) U/L ALT 15 (0-35) U/L Alkaline Phosphatase 142 H (38-126) U/L Serum Total Protein 5.8 L (6.3-8.2) g/dL Albumin 2.9 L (3.5-5.0) g/dL Amylase 62 (30-110) U/L Lipase 203 (23-300) U/L Radiology Exams: Radiology Procedures Category Date Time Status MRI ABD W/O CONTRAST [MRI] Routine Exams 11/06/20 08:00 Completed Multi-Disciplinary Progress Notes: Multi-Disciplinary Progress Notes 11/07/20 15:08 Case Management Note by Breanna Culver NO CHANGE IN DC PLANS AT THIS TIME Initialized on 11/07/20 15:08 - END OF NOTE Assessment/Plan (1) Acute on chronic pancreatitis Current Visit: Yes Status: Acute Assessment & Plan: labs improved, clinically still having poor po tolerance. will attempt to push liquid diet today, repeat enzymes in the am. home when clinically improved. Code(s): K85.90 - ACUTE PANCREATITIS WITHOUT NECROSIS OR INFECTION, UNSP; K86.1 - OTHER CHRONIC PANCREATITIS (2) Hypokalemia Current Visit: Yes Status: Acute Assessment & Plan: persisting in spite of potassium in fluids, will add mag level to this morning labs, then correct as necessary. Code(s): E87.6 - HYPOKALEMIA
[2020-11-08] MEDS: PROTONIX 40 MG IV IV SCH (09:56)
[2020-11-08] MEDS: ROCEPHIN 1 Gm-D5w 50 ml Bag** 1 G/50 ML IVPB IV SCH (09:56)
[2020-11-08] MEDS: Lopressor 50 MG PO SCH ×2 (09:56→21:38)
[2020-11-08] MEDS: PERCOCET TABLET 5/325MG PO PRN ×2 (10:02→19:46)
[2020-11-08] MEDS: Sodium Chloride 0.9% W/ 20 mEq KCl/LITER 1,000 ML IV SCH (12:29)
[2020-11-08] MEDS: Zofran 4 MG/2 ML VIAL IV PRN (12:29)
[2020-11-08] MEDS: Nicoderm CQ 21 MG TOP SCH (12:30)
[2020-11-09] MEDS ORDERED: TRANDATE 20 MG/4 ML SYRINGE IV ONE ×2 (00:16→00:17)
[2020-11-09] MEDS ORDERED: TRANDATE 100MG/20 ML MDV IV ONE (00:30)
[2020-11-09] MEDS: Sodium Chloride 0.9% W/ 20 mEq KCl/LITER 1,000 ML IV SCH (01:15)
[2020-11-09] MEDS: Hydromorphone 1 mg/ml Injection IV PRN ×2 (03:40→08:31)
[2020-11-09] MEDS: PERCOCET TABLET 5/325MG PO PRN ×4 (05:54→19:33)
[2020-11-09 07:07] LABS: Absolute Neutrophil Ct (ANC) 3.72 (1.4-6.9); BASOPHIL % 0.2 % (0.0-0.4); Basophil (Absolute #) 0.01 (0-0.4); Eosinophil % 2.1 % (0.00-5.0); Eosinophil (Absolute #) 0.12 (0-0.5); Hemoglobin 8.8 gm/dl (12.0-16.0); Lymphocyte (Absolute #) 1.48 (1.0-4.6); Lymphocytes % 25.4 % (24.0-44.0); Mean Cell Volume 104.7 fl (78-100); Mean Corpuscular Hemoglobin 34.1 pg (26-32); Mean Corpuscular Hgb Concent. 32.6 g/dl (32-36); Mean Platelet Volume 11.2 fl (7.5-11.0); Monocytes % 8.6 % (0.0-12.0); Neutrophil % 63.7 % (36.0-66.0); Platelet Count 141 K/mm3 (150-450); Red Blood Count 2.58 M/mm3 (4.1-5.4); Red Cell Distribution Width 16.5 % (11.5-14.0); White Blood Count 5.8 K/mm3 (4.0-10.5)
[2020-11-09 07:33] LABS: ALBUMIN 3.1 g/dL (3.5-5.0); ALKALINE PHOSPHATASE 136 U/L (38-126); AMYLASE 80 U/L (30-110); ANION GAP 7.9 MEQ/L (5-15); CHLORIDE 105 mmol/L (98-107); Calcium 8.1 mg/dL (8.4-10.2); Carbon Dioxide 27 mmol/L (22-30); EST GLOMERULAR FILTRATION RATE > 60.0 ML/MIN; Glucose 91 mg/dL (74-106); LIPASE 460 U/L (23-300); SGOT/AST 22 U/L (14-36); SGPT/ALT 13 U/L (0-35); SODIUM 137 mmol/L (137-145); Total Protein 6.2 g/dL (6.3-8.2)
[2020-11-09 07:49] LABS: BLOOD UREA NITROGEN < 2 mg/dL (7-17)
[2020-11-09 07:50] LABS: Potassium 2.9 mmol/L (3.5-5.1)
[2020-11-09] MEDS: POTASSIUM CHLORIDE 20 mEq IN WATER 100ML 20 MEQ/100 ML BAG IV SCH ×2 (08:30→11:10)
[2020-11-09] MEDS: Zofran 4 MG/2 ML VIAL IV PRN (09:00)
[2020-11-09] MEDS: DULCOLAX 5 MG PO SCH (09:03)
[2020-11-09] MEDS: PROTONIX 40 MG IV IV SCH (09:03)
[2020-11-09] MEDS: Lopressor 50 MG PO SCH ×2 (09:03→21:02)
[2020-11-09] MEDS: ROCEPHIN 1 Gm-D5w 50 ml Bag** 1 G/50 ML IVPB IV SCH (09:04)
--- NOTE | 2020-11-09 10:32 | PCM.DS ---
Discharge Summary Date of Admission: 11/05/20 09:58 Admitting Physician: LUIS E RAUSCH DO Primary Care Provider: TAMELA KHAN Allergies Allergies Penicillins Adverse Reaction (Mild, Verified 11/04/20 06:08) Rash pt states she is not had problems with antibitics related to pcn as an adult Hospital Summary - Hospital Course Hospital Course: patient admitted with persistent epigastric pain and nausea and vomiting, hx recurrent pancreatitis, some concern for sphincter of oddi dysfunction on MRCP, has appt with GI at [facility] on 11/12, she is tolerating po intake and pain and nausea are controlled with po meds at this point. K has been low, follwing correction of electrolyte abnormalities pt to be discharged with GI followup, has supplies of pain med and nausea meds at home per patient. - Vitals & Intake/Output Vital Signs: Vital Signs Temperature 97.7 F 11/09/20 08:00 Pulse Rate 90 11/09/20 08:00 Respiratory Rate 18 11/09/20 08:00 Blood Pressure 163/95 11/09/20 08:00 O2 Sat by Pulse Oximetry 97 11/09/20 08:54 Intake & Output: Intake & Output 11/06/20 11/07/20 11/08/20 11/09/20 11:59 11:59 11:59 11:59 Intake Total 0 1513 3199 3688 Output Total 200 500 Balance -200 1013 3199 3688 Weight 70.579 kg - Lab Result Diagrams: 11/09/20 05:45 11/09/20 05:45 Lab Results-Last 24 Hrs: Lab Results-Last 24 Hours 11/09/20 11/09/20 Range/Units 05:45 05:45 WBC 5.8 (4.0-10.5) K/mm3 RBC 2.58 L (4.1-5.4) M/mm3 Hgb 8.8 L (12.0-16.0) gm/dl Hct 27.0 L (35-47) % MCV 104.7 H (78-100) fl MCH 34.1 H (26-32) pg MCHC 32.6 (32-36) g/dl RDW 16.5 H (11.5-14.0) % Plt Count 141 L (150-450) K/mm3 MPV 11.2 H (7.5-11.0) fl Gran % 63.7 (36.0-66.0) % Eos # (Auto) 0.12 (0-0.5) Absolute Lymphs (auto) 1.48 (1.0-4.6) Absolute Monos (auto) 0.50 (0.0-1.3) Lymphocytes % 25.4 (24.0-44.0) % Monocytes % 8.6 (0.0-12.0) % Eosinophils % 2.1 (0.00-5.0) % Basophils % 0.2 (0.0-0.4) % Absolute Granulocytes 3.72 (1.4-6.9) Basophils # 0.01 (0-0.4) Sodium 137 (137-145) mmol/L Potassium 2.9 L* (3.5-5.1) mmol/L Chloride 105 (98-107) mmol/L Carbon Dioxide 27 (22-30) mmol/L Anion Gap 7.9 (5-15) MEQ/L BUN < 2 L (7-17) mg/dL Creatinine 0.30 L (0.52-1.04) mg/dL Estimated GFR > 60.0 ML/MIN Glucose 91 (74-106) mg/dL Calcium 8.1 L (8.4-10.2) mg/dL Total Bilirubin 0.50 (0.2-1.3) mg/dL AST 22 (14-36) U/L ALT 13 (0-35) U/L Alkaline Phosphatase 136 H (38-126) U/L Serum Total Protein 6.2 L (6.3-8.2) g/dL Albumin 3.1 L (3.5-5.0) g/dL Amylase 80 (30-110) U/L Lipase 460 H (23-300) U/L Micro Results-Entire Visit: Microbiology 11/04/20 06:12 Urine Culture - Final Clean Catch Midstream MIXED STACY; 3 OR MORE TYPES. NO PREDOMINANT ORGANIS M. NO FURTHER WORKUP. PLEASE RESUBMIT IF CLINICALLY INDICATED. - Procedures and Test Procedures and Tests throughout Hospitalization: Therapy Orders & Screens 11/05/20 22:39 Oxygen NASAL CANNULA 2 lpm Comment: Diagnosis: PANCREATITIS 11/07/20 05:50 Incentive Spirometry UD Comment: Diagnosis: PANCREATITIS Discharge Exam General Appearance: no apparent distress, alert Respiratory Exam: normal breath sounds, lungs clear, No respiratory distress Cardiovascular Exam: regular rate/rhythm, normal heart sounds Gastrointestinal/Abdomen Exam: soft, normal bowel sounds, tenderness (minimal in epigastrium), No distention, No mass, No guarding, No rebound Extremity Exam: normal inspection, normal range of motion Skin Exam: normal color, warm, dry Final Diagnosis/Problem List - Final Discharge Diagnosis/Problem (1) Acute on chronic pancreatitis Current Visit: Yes Status: Acute Code(s): K85.90 - ACUTE PANCREATITIS WITHOUT NECROSIS OR INFECTION, UNSP; K86.1 - OTHER CHRONIC PANCREATITIS (2) Hypokalemia Current Visit: Yes Status: Acute Code(s): E87.6 - HYPOKALEMIA - Discharge Disposition: Home, Self-Care Condition: Stable Prescriptions: Continue Oxycodone HCl/Acetaminophen [Percocet 5-325 mg Tablet] 1 each PO TID PRN Metoprolol Tartrate 50 mg [Lopressor 50 MG] 50 mg PO BID Omeprazole 20 mg PO DAILY PRN PRN PRN Reason: reflux Ondansetron ODT 4 MG [Zofran Odt 4 mg] 4 mg PO Q6H PRN PRN PRN Reason: Nausea Additional Instructions: Patient has an appt with in [place], [place]. [phone] on Dec @ 9:45 a.m. I faxed all paper work to office at [phone]. see GI in [place] on 11/12 as scheduled, return for severe pain or inability to tolerate po intake. Follow up with: TAMELA KHAN [Primary Care Provider] -
[2020-11-09] MEDS ORDERED: Catapres 0.1 MG PO ONE ×2 (13:10→19:26)
[2020-11-09] MEDS: Magnesium 1 Gm / 100 Ml D5W*** 100 ML IV SCH ×2 (14:30→15:44)
[2020-11-09] MEDS: Nicoderm CQ 21 MG TOP SCH (15:31)
[2020-11-09] MEDS ORDERED: Magnesium 1 Gm / 100 Ml D5W*** 100 ML IV ONE (15:43)
[2020-11-09 18:52] LABS: ANION GAP 8.6 MEQ/L (5-15); BLOOD UREA NITROGEN < 2 mg/dL (7-17); CHLORIDE 105 mmol/L (98-107); Calcium 8.5 mg/dL (8.4-10.2); Carbon Dioxide 27 mmol/L (22-30); Creatinine 1 0.37 mg/dL (0.52-1.04); EST GLOMERULAR FILTRATION RATE > 60.0 ML/MIN; Glucose 106 mg/dL (74-106); MAGNESIUM 2.2 mg/dL (1.6-2.3); Potassium 3.4 mmol/L (3.5-5.1); SODIUM 138 mmol/L (137-145)
[2020-11-09] MEDS ORDERED: APRESOLINE 20 MG/ML INJ IV PRN (22:30)
[2020-11-10] MEDS: PERCOCET TABLET 5/325MG PO PRN ×4 (04:00→12:02)
--- NOTE | 2020-11-10 07:02 | PCM.DS ---
Discharge Summary Date of Admission: 11/05/20 09:58 Admitting Physician: LUIS E RAUSCH DO Primary Care Provider: TAMELA TAN Allergies Allergies Penicillins Adverse Reaction (Mild, Verified 11/04/20 06:08) Rash pt states she is not had problems with antibitics related to pcn as an adult Hospital Summary - Hospital Course Hospital Course: patient admitted with acute on chronic pancreatitis, tolerating po and pain managed with po meds. bp has been high, adding ARB to beta silvia regimen. has appt with GI in 2 days to f/u for possible ERCP - Vitals & Intake/Output Vital Signs: Vital Signs Temperature 98.2 F 11/10/20 03:59 Pulse Rate 72 11/10/20 03:59 Respiratory Rate 16 11/10/20 04:00 Blood Pressure 180/97 11/10/20 03:59 O2 Sat by Pulse Oximetry 96 11/10/20 03:59 Intake & Output: Intake & Output 11/07/20 11/08/20 11/09/20 11/10/20 11:59 11:59 11:59 11:59 Intake Total 1513 3199 3688 1678 Output Total 500 Balance 1013 3199 3688 1678 Weight 70.579 kg - Lab Result Diagrams: 11/09/20 05:45 11/09/20 18:30 Lab Results-Last 24 Hrs: Lab Results-Last 24 Hours 11/09/20 11/09/20 11/09/20 Range/Units 05:45 05:45 05:45 WBC 5.8 (4.0-10.5) K/mm3 RBC 2.58 L (4.1-5.4) M/mm3 Hgb 8.8 L (12.0-16.0) gm/dl Hct 27.0 L (35-47) % MCV 104.7 H (78-100) fl MCH 34.1 H (26-32) pg MCHC 32.6 (32-36) g/dl RDW 16.5 H (11.5-14.0) % Plt Count 141 L (150-450) K/mm3 MPV 11.2 H (7.5-11.0) fl Gran % 63.7 (36.0-66.0) % Eos # (Auto) 0.12 (0-0.5) Absolute Lymphs (auto) 1.48 (1.0-4.6) Absolute Monos (auto) 0.50 (0.0-1.3) Lymphocytes % 25.4 (24.0-44.0) % Monocytes % 8.6 (0.0-12.0) % Eosinophils % 2.1 (0.00-5.0) % Basophils % 0.2 (0.0-0.4) % Absolute Granulocytes 3.72 (1.4-6.9) Basophils # 0.01 (0-0.4) Sodium 137 (137-145) mmol/L Potassium 2.9 L* (3.5-5.1) mmol/L Chloride 105 (98-107) mmol/L Carbon Dioxide 27 (22-30) mmol/L Anion Gap 7.9 (5-15) MEQ/L BUN < 2 L (7-17) mg/dL Creatinine 0.30 L (0.52-1.04) mg/dL Estimated GFR > 60.0 ML/MIN Glucose 91 (74-106) mg/dL Calcium 8.1 L (8.4-10.2) mg/dL Magnesium 1.5 L (1.6-2.3) mg/dL Total Bilirubin 0.50 (0.2-1.3) mg/dL AST 22 (14-36) U/L ALT 13 (0-35) U/L Alkaline Phosphatase 136 H (38-126) U/L Serum Total Protein 6.2 L (6.3-8.2) g/dL Albumin 3.1 L (3.5-5.0) g/dL Amylase 80 (30-110) U/L Lipase 460 H (23-300) U/L 12/19/20 Range/Units 18:30 WBC (4.0-10.5) K/mm3 RBC (4.1-5.4) M/mm3 Hgb (12.0-16.0) gm/dl Hct (35-47) % MCV (78-100) fl MCH (26-32) pg MCHC (32-36) g/dl RDW (11.5-14.0) % Plt Count (150-450) K/mm3 MPV (7.5-11.0) fl Gran % (36.0-66.0) % Eos # (Auto) (0-0.5) Absolute Lymphs (auto) (1.0-4.6) Absolute Monos (auto) (0.0-1.3) Lymphocytes % (24.0-44.0) % Monocytes % (0.0-12.0) % Eosinophils % (0.00-5.0) % Basophils % (0.0-0.4) % Absolute Granulocytes (1.4-6.9) Basophils # (0-0.4) Sodium 138 (137-145) mmol/L Potassium 3.4 L (3.5-5.1) mmol/L Chloride 105 (98-107) mmol/L Carbon Dioxide 27 (22-30) mmol/L Anion Gap 8.6 (5-15) MEQ/L BUN < 2 L (7-17) mg/dL Creatinine 0.37 L (0.52-1.04) mg/dL Estimated GFR > 60.0 ML/MIN Glucose 106 (74-106) mg/dL Calcium 8.5 (8.4-10.2) mg/dL Magnesium 2.2 (1.6-2.3) mg/dL Total Bilirubin (0.2-1.3) mg/dL AST (14-36) U/L ALT (0-35) U/L Alkaline Phosphatase (38-126) U/L Serum Total Protein (6.3-8.2) g/dL Albumin (3.5-5.0) g/dL Amylase (30-110) U/L Lipase (23-300) U/L Micro Results-Entire Visit: Microbiology 11/04/20 06:12 Urine Culture - Final Clean Catch Midstream MIXED STACY; 3 OR MORE TYPES. NO PREDOMINANT ORGANISM. NO FURTHER WORKUP. PLEASE RESUBMIT IF CLINICALLY INDICATED. - Procedures and Test Procedures and Tests throughout Hospitalization: Therapy Orders & Screens 11/05/20 22:39 Oxygen NASAL CANNULA 2 lpm Comment: Diagnosis: PANCREATITIS 11/07/20 05:50 Incentive Spirometry UD Comment: Diagnosis: PANCREATITIS Discharge Exam General Appearance: no apparent distress, alert Respiratory Exam: normal breath sounds, lungs clear, No respiratory distress Cardiovascular Exam: regular rate/rhythm, normal heart sounds Gastrointestinal/Abdomen Exam: soft, No tenderness, No mass Extremity Exam: normal inspection, normal range of motion Skin Exam: normal color, warm, dry Final Diagnosis/Problem List - Final Discharge Diagnosis/Problem (1) Acute on chronic pancreatitis Current Visit: Yes Status: Acute Code(s): K85.90 - ACUTE PANCREATITIS WITHOUT NECROSIS OR INFECTION, UNSP; K86.1 - OTHER CHRONIC PANCREATITIS (2) Hypokalemia Current Visit: Yes Status: Acute Code(s): E87.6 - HYPOKALEMIA (3) Hypertension Current Visit: Yes Status: Acute Assessment & Plan: add losartan to regimen and f/u with Dr Tan Code(s): I10 - ESSENTIAL (PRIMARY) HYPERTENSION - Discharge Disposition: Home, Self-Care Condition: Stable Prescriptions: New Losartan Potassium 50 mg [Cozaar 50 MG] 50 mg PO DAILY #30 tablet Continue Oxycodone HCl/Acetaminophen [Percocet 5-325 mg Tablet] 1 each PO TID PRN Metoprolol Tartrate 50 mg [Lopressor 50 MG] 50 mg PO BID Omeprazole 20 mg PO DAILY PRN PRN PRN Reason: reflux Ondansetron ODT 4 MG [Zofran Odt 4 mg] 4 mg PO Q6H PRN PRN PRN Reason: Nausea Additional Instructions: Patient has an appt with in [place], [place]. [phone] on Dec @ 9:45 a.m. I faxed all paper work to office at [phone]. see GI in [place] on 11/12 as scheduled, return for severe pain or inability to tolerate po intake. pT HAS ALL PAIN AND NAUSEA MEDS AT HOME, NO NEW PRESCRIPTIONS. Follow up with: TAMELA TAN [Primary Care Provider] - 1 Week
[2020-11-10 07:03] LABS: Hematocrit 27.5 % (35-47); Hemoglobin 8.9 gm/dl (12.0-16.0); Mean Cell Volume 104.6 fl (78-100); Mean Corpuscular Hemoglobin 33.8 pg (26-32); Mean Corpuscular Hgb Concent. 32.4 g/dl (32-36); Mean Platelet Volume 10.7 fl (7.5-11.0); Platelet Count 166 K/mm3 (150-450); Red Blood Count 2.63 M/mm3 (4.1-5.4); Red Cell Distribution Width 16.6 % (11.5-14.0); White Blood Count 5.6 K/mm3 (4.0-10.5)
[2020-11-10 07:13] LABS: ANION GAP 7.6 MEQ/L (5-15); CHLORIDE 104 mmol/L (98-107); Calcium 8.3 mg/dL (8.4-10.2); Carbon Dioxide 28 mmol/L (22-30); Creatinine 1 0.34 mg/dL (0.52-1.04); EST GLOMERULAR FILTRATION RATE > 60.0 ML/MIN; Glucose 96 mg/dL (74-106); SODIUM 137 mmol/L (137-145)
[2020-11-10 07:16] LABS: BLOOD UREA NITROGEN < 2 mg/dL (7-17)
[2020-11-10] MEDS ORDERED: K-LYTE 25 MEQ PO ONE (08:00)
[2020-11-10] MEDS: Lopressor 50 MG PO SCH (09:10)
[2020-11-10] MEDS: PROTONIX 40 MG IV IV SCH (09:10)
[2020-11-10] MEDS: Zofran 4 MG/2 ML VIAL IV PRN (09:10)
[2020-11-10] MEDS: DULCOLAX 5 MG PO SCH (09:10)
[2020-11-10] MEDS ORDERED: Cozaar 50 MG PO SCH (10:00)
[2020-11-10 11:55] VITALS: BP 157/94; PULSE 76; O2SAT 97
== END 2020-11-10 12:05 | disposition home or self-care (01) | DRG 439 ==
LOC: ED 05:42 → MED SURG 10:05 → OBSVTOIN 11-05 09:58
PROVIDERS: ADMIT Family Medicine; ATTEND Family Medicine
DX: K85.90 Acute pancreatitis without necrosis or infection, unspecified (principal); N39.0 Urinary tract infection, site not specified; K86.1 Other chronic pancreatitis; R11.2 Nausea with vomiting, unspecified; E87.6 Hypokalemia; Z79.899 Other long term (current) drug therapy; I10 Essential (primary) hypertension; N20.0 Calculus of kidney; E86.9 Volume depletion, unspecified
CPT/HCPCS: 36000; 36415; 74177; 74181; 80048; 80053; 81001; 81015; 82150; 83605; 83690; 83735; 84132; 84703; 85025; 85027; 87086; 93005; 93268; 94760; 94762; 96360; 96365; 96374; 96375; 96376; 99285; J0696; J1170; J2405; J3475; J3480; A9270-GY; G0378

== ENCOUNTER 2020-12-09 13:35 | Inpatient (IN) | payer OTHER ==
[2020-12-09] MEDS ORDERED: MORPHINE SULFATE 4 MG INJ IV ONE ×3 (13:51→21:33)
[2020-12-09] MEDS ORDERED: Sodium Chloride 0.9% 1000 ML 1,000 ML IV STA (13:51)
[2020-12-09 14:11] LABS: Appearance SLIGHTLY CLOUDY (CLEAR); Bilirubin SMALL (NEGATIVE); Blood NEGATIVE Ery/ul (0-5); Epithelial Cells FEW /HPF (FEW); Glucose NEGATIVE (NEGATIVE); Ketones NEGATIVE (NEGATIVE); Leukocyte Esterase NEGATIVE (NEGATIVE); Mucus SLIGHT /HPF (NEGATIVE); Nitrite NEGATIVE (NEGATIVE); Protein,Urine Dip 100 (Negative); RBC 0-2 /HPF (0-2); Specific Gravity 1.033 (1.005-1.025); Urobilinogen 4 mg/dL (0-1)
[2020-12-09] MEDS ORDERED: MORPHINE SULFATE 4 MG INJ ONE ×2 (15:22→17:38)
[2020-12-09] MEDS ORDERED: Sodium Chloride 0.9% 1000 ML 1,000 ML ONE ×2 (15:23→18:10)
[2020-12-09] MEDS ORDERED: Zofran 4 MG/2 ML VIAL ONE (15:28)
[2020-12-09] MEDS ORDERED: Zofran 4 MG/2 ML VIAL IV ONE (15:31)
[2020-12-09 15:36] LABS: Absolute Neutrophil Ct (ANC) 7.83 (1.4-6.9); BASOPHIL % 0.2 % (0.0-0.4); Basophil (Absolute #) 0.02 (0-0.4); Eosinophil % 0.5 % (0.00-5.0); Eosinophil (Absolute #) 0.05 (0-0.5); Hematocrit 36.8 % (35-47); Lymphocyte (Absolute #) 2.11 (1.0-4.6); Mean Cell Volume 106.4 fl (78-100); Mean Corpuscular Hemoglobin 34.7 pg (26-32); Mean Corpuscular Hgb Concent. 32.6 g/dl (32-36); Mean Platelet Volume 10.7 fl (7.5-11.0); Monocyte (Absolute #) 0.53 (0.0-1.3); Neutrophil % 74.3 % (36.0-66.0); Platelet Count 244 K/mm3 (150-450); Red Blood Count 3.46 M/mm3 (4.1-5.4); Red Cell Distribution Width 18.5 % (11.5-14.0); White Blood Count 10.5 K/mm3 (4.0-10.5)
[2020-12-09 15:49] LABS: ALBUMIN 4.3 g/dL (3.5-5.0); ALKALINE PHOSPHATASE 129 U/L (38-126); ANION GAP 10.8 MEQ/L (5-15); BLOOD UREA NITROGEN 7 mg/dL (7-17); CHLORIDE 104 mmol/L (98-107); Calcium 8.9 mg/dL (8.4-10.2); Carbon Dioxide 26 mmol/L (22-30); Creatinine 1 0.36 mg/dL (0.52-1.04); EST GLOMERULAR FILTRATION RATE > 60.0 ML/MIN; Glucose 108 mg/dL (74-106); Potassium 3.1 mmol/L (3.5-5.1); SGOT/AST 39 U/L (14-36); SGPT/ALT 21 U/L (0-35); SODIUM 138 mmol/L (137-145); TROPONIN < 0.012 ng/mL (0.000-0.034); Total Protein 7.7 g/dL (6.3-8.2)
[2020-12-09 15:58] LABS: LIPASE 3764 U/L (23-300)
--- NOTE | 2020-12-09 16:40 | XRAY ---
Indication: Left abdomen pain. History of pancreatitis. Multiple contiguous axial images obtained through the abdomen and pelvis using 80 cc Isovue 370 contrast. Comparison: November 04, 2020. Lung bases again demonstrates dependent atelectasis, less than before. Stable tiny left lower lobe calcified granuloma. Heart is not enlarged. Noncontrasted stomach and bowel loops remain nonobstructed again with appendectomy and cholecystectomy. Worsening pancreatic head and new pancreatic body peripancreatic stranding favoring acute pancreatitis. No free fluid/air. Adjacent duodenal wall thickening presumed reactive. Again 22.8 cm fatty hepatomegaly and splenic calcified granulomas. Remaining liver, spleen, adrenal glands, kidneys, ureters, bladder, uterus, and aorta appear unremarkable. No pathologic retroperitoneal lymphadenopathy. Osseous structures remain intact. Impression: 1. Worsening pancreatitis as detailed. No abnormal fluid collection. 2. Again incidental fatty hepatomegaly and splenic calcified granulomas.
--- NOTE | 2020-12-09 16:44 | ERPHSYRPT ---
- History of Present Illness Time Seen by Provider: 12/09/20 13:55 Historian: patient Exam Limitations: no limitations Patient Subjective Stated Complaint: abd pain Triage Nursing Assessment: pt to ED c/o L sided abd pain onset today. hx pancreatitis but this pain is new. pain has caused some nausea and emesis today, approx 4 episodes. denies bowel issues, some decreased urinary output today. rates 10/10 pain. denies COVID exposure. Physician History: Patient is a 30-year-old female with a history of pancreatitis presents to our ED with complaints of epigastric and left upper quadrant pain. Pain started today. Pain has gotten progressively worse. Positive nausea and vomiting. No trauma. No fever. Symptoms are moderate in intensity. No specific worsening improving factors. No chest pain or shortness of breath. Patient voices no other complaints concerns at this time. Timing/Duration: today Activities at Onset: none Quality: aching Abdominal Pain Onset Location: LUQ, epigastric Pain Radiation: no radiation Severity of Pain-Max: moderate Severity of Pain-Current: moderate Modifying Factors: Improves With: nothing Associated Symptoms: denies symptoms, vomiting, No chest pain, No diarrhea, No headache, No neck pain, No shortness of breath Previous symptoms: same symptoms as today Allergies/Adverse Reactions: Penicillins Adverse Reaction (Mild, Verified 12/09/20 14:02) Rash pt states she is not had problems with antibitics related to pcn as an adult Home Medications: Metoprolol Tartrate 50 mg [Lopressor 50 MG] 50 mg PO BID 11/04/20 [History] Omeprazole 20 mg PO DAILY PRN PRN 11/04/20 [History] Ondansetron ODT 4 MG [Zofran Odt 4 mg] 4 mg PO Q6H PRN PRN 11/04/20 [History] Oxycodone HCl/Acetaminophen [Percocet 5-325 mg Tablet] 1 each PO TID PRN 11/04/20 [History] Hx Tetanus, Diphtheria Vaccination/Date Given: Yes Hx Influenza Vaccination/Date Given: Yes Hx Pneumococcal Vaccination/Date Given: No Immunizations Up to Date: Yes Travel Risk - International Travel Have you traveled outside of the country in past 3 weeks: No - Coronavirus Screening Are you exhibiting any of the following symptoms?: Yes Symptoms: Vomiting/Diarrhea Close contact with a COVID-19 positive Pt in past 14-21 Days: No - Review of Systems Constitutional: No Symptoms, No Fever, No Chills Eyes: No Symptoms Ears, Nose, & Throat: No Symptoms Respiratory: No Symptoms, No Cough, No Dyspnea Cardiac: No Symptoms, No Chest Pain, No Edema, No Syncope Abdominal/Gastrointestinal: No Symptoms, No Abdominal Pain, No Nausea, No Vomiting, No Diarrhea Genitourinary Symptoms: No Symptoms, No Dysuria Musculoskeletal: No Symptoms, No Back Pain, No Neck Pain Skin: No Symptoms, No Rash Neurological: No Symptoms, No Dizziness, No Focal Weakness, No Sensory Changes Psychological: No Symptoms Endocrine: No Symptoms Hematologic/Lymphatic: No Symptoms Immunological/Allergic: No Symptoms All Other Systems: Reviewed and Negative - Past Medical History Pertinent Past Medical History: Yes Neurological History: No Pertinent History ENT History: No Pertinent History Cardiac History: Hypertension Respiratory History: No Pertinent History Endocrine Medical History: No Pertinent History Musculoskeletal History: No Pertinent History GI Medical History: Pancreatitis History: Other Psycho-Social History: No Pertinent History Female Reproductive Disorders: Endometriosis Other Medical History: kidney stones - Past Surgical History Past Surgical History: Yes Neuro Surgical History: No Pertinent History Cardiac: No Pertinent History Respiratory: No Pertinent History Gastrointestinal: Appendectomy, Cholecystectomy Genitourinary: No Pertinent History Musculoskeletal: No Pertinent History Female Surgical History: No Pertinent History Other Surgical History: exploratory laparoscopy per Dr Hidalgo 2014- negative, wisdom teeth - Social History Smoking Status: Current every day smoker How long have you smoked: yrs Exposure to second hand smoke: No Alcohol Use: Socially Drug Use: none Patient Lives Alone: No Significant Family History: no pertinent family hx - Female History Hx Last Menstrual Period: 5 days ago Hx Now: No - Nursing Vital Signs Nursing Vital Signs: Initial Vital Signs Temperature 97.8 F 12/09/20 13:48 Pulse Rate 88 12/09/20 13:48 Respiratory Rate 16 12/09/20 13:48 Blood Pressure 208/132 12/09/20 13:48 O2 Sat by Pulse Oximetry 99 12/09/20 13:48 Pain Scale Pain Intensity 2 - Physical Exam General Appearance: no apparent distress, alert Eye Exam: PERRL/EOMI, eyes nml inspection Ears, Nose, Throat Exam: normal ENT inspection, pharynx normal, moist mucous membranes Neck Exam: normal inspection, non-tender, supple, full range of motion Respiratory Exam: normal breath sounds, lungs clear, No respiratory distress Cardiovascular Exam: regular rate/rhythm, normal heart sounds Gastrointestinal/Abdomen Exam: soft, tenderness, other (Epigastric left upper quadrant tenderness to palpation.), No distention, No mass, No guarding Pelvic Exam: not done Back Exam: normal inspection, normal range of motion, No CVA tenderness, No vertebral tenderness Extremity Exam: normal inspection, normal range of motion, pelvis stable Neurologic Exam: alert, oriented x 3, cooperative, normal mood/affect, nml cere bellar function, sensation nml, No motor deficits Skin Exam: normal color, warm, dry Lymphatic Exam: No adenopathy SpO2 Interpretation: normal SpO2: 97 O2 Delivery: Room Air - Course Nursing assessment & vital signs reviewed: Yes - CT Exams Abdomen/Pelvis CT Interpretation: Tele-radiologist Report (Worsening pancreatitis. No abnormal fluid collection. Incidental fatty hepatomegaly and splenic calcified granulomas.) Ordered Tests: Active Orders 24 hr Category Date Time Status ABDOMEN AND PELVIS W CONTRAST [CT] Stat Exams 12/09/20 13:52 Completed CBC W DIFF Stat Lab 12/09/20 13:51 Completed CMP Routine Lab 12/09/20 15:03 Completed HCG,QUALITATIVE URINE Stat Lab 12/09/20 14:01 Completed LIPASE Routine Lab 12/09/20 15:03 Completed TROPONIN Q3H Lab 12/09/20 15:03 Completed TROPONIN Q3H Lab 12/09/20 15:05 Completed TROPONIN Q3H Lab 12/09/20 20:00 Ordered TROPONIN Q3H Lab 12/09/20 23:00 Ordered TROPONIN Q3H Lab 12/10/20 02:00 Ordered UA W/RFX UR CULTURE Stat Lab 12/09/20 14:01 Completed Transfer Order Routine Transfer 12/09/20 Ordered Medication Summary Generic Name Dose Route Start Last Admin Trade Name Freq PRN Reason Stop Dose Admin Potassium Chloride 20 meq in 100 mls @ 50 mls/hr 12/09/20 18:15 12/09/20 18:08 Potassium Chloride 20 Meq In Water 100ml IV 12/09/20 22:14 50 mls/hr Q2H ANTONIO Administration Sodium Chloride 1,000 mls @ 100 mls/hr 12/09/20 18:15 12/09/20 18:12 Sodium Chloride 0.9% 1000 Ml IV 01/08/21 18:14 100 mls/hr .Q10H ANTONIO Administration Discontinued Medications Generic Name Dose Route Start Last Admin Trade Name Lazaro PRN Reason Stop Dose Admin Sodium Chloride 1,000 mls @ 999 mls/hr 12/09/20 13:51 12/09/20 16:44 Sodium Chloride 0.9% 1000 Ml IV 12/09/20 14:51 Infused .Q1H1M STA Infusion Sodium Chloride Confirm 12/09/20 15:23 Sodium Chloride 0.9% 1000 Ml Administered 12/09/20 15:24 Dose 1,000 mls @ ud .ROUTE .STK-MED ONE Morphine Sulfate 4 mg 12/09/20 13:51 12/09/20 15:25 Morphine Sulfate 4 Mg Inj IV 12/09/20 13:52 4 mg STAT ONE Administration Morphine Sulfate Confirm 12/09/20 15:22 Morphine Sulfate 4 Mg Inj Administered 12/09/20 15:23 Dose 4 mg .ROUTE .STK-MED ONE Morphine Sulfate 4 mg 12/09/20 17:26 12/09/20 17:39 Morphine Sulfate 4 Mg Inj IV 12/09/20 17:27 4 mg STAT ONE Administration Morphine Sulfate Confirm 12/09/20 17:38 Morphine Sulfate 4 Mg Inj Administered 12/09/20 17:39 Dose 4 mg .ROUTE .STK-MED ONE Ondansetron HCl Confirm 12/09/20 15:28 Zofran 4 Mg/2 Ml Vial Administered 12/09/20 15:29 Dose 4 mg .ROUTE .STK-MED ONE Ondansetron HCl 4 mg 12/09/20 15:31 12/09/20 15:32 Zofran 4 Mg/2 Ml Vial IV 12/09/20 15:32 4 mg STAT ONE Administration Ondansetron HCl 4 mg 12/09/20 18:13 12/09/20 18:17 Zofran Odt 4 Mg PO 12/09/20 18:14 4 mg STAT ONE Administration Ondansetron HCl Confirm 12/09/20 18:17 Zofran Odt 4 Mg Administered 12/09/20 18:18 Dose 4 mg .ROUTE .STK-MED ONE Lab/Rad Data: Laboratory Result Diagrams 12/09/20 13:51 12/09/20 15:03 Laboratory Results 12/09/20 12/09/20 12/09/20 Range/Units 15:05 15:03 14:01 WBC (4.0-10.5) K/mm3 RBC (4.1-5.4) M/mm3 Hgb (12.0-16.0) gm/dl Hct (35-47) % MCV (78-100) fl MCH (26-32) pg MCHC (32-36) g/dl RDW (11.5-14.0) % Plt Count (150-450) K/mm3 MPV (7.5-11.0) fl Gran % (36.0-66.0) % Eos # (Auto) (0-0.5) Absolute Lymphs (auto) (1.0-4.6) Absolute Monos (auto) (0.0-1.3) Lymphocytes % (24.0-44.0) % Monocytes % (0.0-12.0) % Eosinophils % (0.00-5.0) % Basophils % (0.0-0.4) % Absolute Granulocytes (1.4-6.9) Basophils # (0-0.4) Sodium 138 (137-145) mmol/L Potassium 3.1 L (3.5-5.1) mmol/L Chloride 104 (98-107) mmol/L Carbon Dioxide 26 (22-30) mmol/L Anion Gap 10.8 (5-15) MEQ/L BUN 7 (7-17) mg/dL Creatinine 0.36 L (0.52-1.04) mg/dL Estimated GFR > 60.0 ML/MIN Glucose 108 H (74-106) mg/dL Calcium 8.9 (8.4-10.2) mg/dL Total Bilirubin 1.10 (0.2-1.3) mg/dL AST 39 H (14-36) U/L ALT 21 (0-35) U/L Alkaline Phosphatase 129 H (38-126) U/L Troponin I < 0.012 < 0.012 (0.000-0.034) ng/mL Serum Total Protein 7.7 (6.3-8.2) g/dL Albumin 4.3 (3.5-5.0) g/dL Lipase 3764 H (23-300) U/L Urine Color (YELLOW) Urine Appearance (CLEAR) Urine pH (5-6) Ur Specific Noble (1.005-1.025) Urine Protein (Negative) Urine Ketones (NEGATIVE) Urine Blood (0-5) Boone/ul Urine Nitrite (NEGATIVE) Urine Bilirubin (NEGATIVE) Urine Urobilinogen (0-1) mg/dL Ur Leukocyte Esterase (NEGATIVE) Urine WBC (Auto) (0-5) /HPF Urine RBC (Auto) (0-2) /HPF U Epithel Cells (Auto) (FEW) /HPF Urine Bacteria (Auto) (NEGATIVE) /HPF Urine Mucus (Auto) (NEGATIVE) /HPF Urine Culture Reflexed (NO) Urine Glucose (NEGATIVE) mg/dL Urine HCG, Qual NEGATIVE (Negative) 12/09/20 12/09/20 Range/Units 14:01 13:51 WBC 10.5 (4.0-10.5) K/mm3 RBC 3.46 L (4.1-5.4) M/mm3 Hgb 12.0 (12.0-16.0) gm/dl Hct 36.8 (35-47) % MCV 106.4 H (78-100) fl MCH 34.7 H (26-32) pg MCHC 32.6 (32-36) g/dl RDW 18.5 H (11.5-14.0) % Plt Count 244 (150-450) K/mm3 MPV 10.7 (7.5-11.0) fl Gran % 74.3 H (36.0-66.0) % Eos # (Auto) 0.05 (0-0.5) Absolute Lymphs (auto) 2.11 (1.0-4.6) Absolute Monos (auto) 0.53 (0.0-1.3) Lymphocytes % 20.0 L (24.0-44.0) % Monocytes % 5.0 (0.0-12.0) % Eosinophils % 0.5 (0.00-5.0) % Basophils % 0.2 (0.0-0.4) % Absolute Granulocytes 7.83 H (1.4-6.9) Basophils # 0.02 (0-0.4) Sodium (137-145) mmol/L Potassium (3.5-5.1) mmol/L Chloride (98-107) mmol/L Carbon Dioxide (22-30) mmol/L Anion Gap (5-15) MEQ/L BUN (7-17) mg/dL Creatinine (0.52-1.04) mg/dL Estimated GFR ML/MIN Glucose (74-106) mg/dL Calcium (8.4-10.2) mg/dL Total Bilirubin (0.2-1.3) mg/dL AST (14-36) U/L ALT (0-35) U/L Alkaline Phosphatase (38-126) U/L Troponin I (0.000-0.034) ng/mL Serum Total Protein (6.3-8.2) g/dL Albumin (3.5-5.0) g/dL Lipase (23-300) U/L Urine Color ALLYN (YELLOW) Urine Appearance SLIGHTLY CLOUDY (CLEAR) Urine pH 5.0 (5-6) Ur Specific Noble 1.033 (1.005-1.025) Urine Protein 100 (Negative) Urine Ketones NEGATIVE (NEGATIVE) Urine Blood NEGATIVE (0-5) Bo[place]/ul Urine Nitrite NEGATIVE (NEGATIVE) Urine Bilirubin SMALL (NEGATIVE) Urine Urobilinogen 4 (0-1) mg/dL Ur Leukocyte Esterase NEGATIVE (NEGATIVE) Urine WBC (Auto) 3-5 (0-5) /HPF Urine RBC (Auto) 0-2 (0-2) /HPF U Epithel Cells (Auto) FEW (FEW) /HPF Urine Bacteria (Auto) NONE (NEGATIVE) /HPF Urine Mucus (Auto) SLIGHT (NEGATIVE) /HPF Urine Culture Reflexed NO (NO) Urine Glucose NEGATIVE (NEGATIVE) mg/dL Urine HCG, Qual (Negative) - Progress Progress: improved Progress Note: Patient reassessed. Pain improved. Nausea improved. Patient has pancreatitis. Lipase elevated. Fat stranding around the pancreas observed on CAT scan. Patient has a history of pancreatitis. Symptoms are the same. We will keep patient n.p.o. IV fluids infusing. Nausea and pain medication administered. Case discussed with Dr. Diop who accepts admission to observation. Plan of care discussed with patient. She agrees to admission to [facility] for further evaluation and treatment. Potassium was low. Potassium replacement ordered. 12/09/20 18:[address] Abelardo Will see patient in: hospital (observation) Counseled pt/family regarding: lab results, diagnosis, rad results - Departure Departure Disposition: Observation Clinical Impression: Pancreatitis, Lung granuloma, Hepatomegaly, Splenomegaly, Calcified granuloma of lung Condition: Stable Critical Care Time: No Referrals: TAMELA KHAN [Primary Care Provider] -
[2020-12-09] MEDS: POTASSIUM CHLORIDE 20 mEq IN WATER 100ML 20 MEQ/100 ML BAG IV SCH ×2 (18:08→20:02)
[2020-12-09] MEDS ORDERED: ZOFRAN ODT 4 MG PO ONE (18:13)
[2020-12-09] MEDS ORDERED: Sodium Chloride 0.9% 1000 ML 1,000 ML IV SCH ×2 (18:15→18:37)
[2020-12-09] MEDS ORDERED: ZOFRAN ODT 4 MG ONE (18:17)
[2020-12-09] MEDS ORDERED: PROTONIX 40 MG IV IV SCH (21:30)
[2020-12-09] MEDS: Lopressor 50 MG PO SCH (21:37)
[2020-12-09] MEDS: Zofran 4 MG/2 ML VIAL IV PRN (21:44)
[2020-12-09] MEDS: Nicoderm CQ 21 MG TOP SCH (21:49)
[2020-12-09] MEDS: DILAUDID 1 MG/1ML PCA IV PRN (22:11)
[2020-12-10] MEDS ORDERED: POTASSIUM CHLORIDE 20 mEq IN WATER 100ML 20 MEQ/100 ML BAG IV ONE (01:35)
[2020-12-10] MEDS: Sodium Chloride 0.9% W/ 20 mEq KCl/LITER 1,000 ML IV SCH ×3 (01:44→21:18)
[2020-12-10] MEDS: Zofran 4 MG/2 ML VIAL IV PRN ×2 (01:54→05:54)
[2020-12-10 05:14] LABS: Absolute Neutrophil Ct (ANC) 6.78 (1.4-6.9); BASOPHIL % 0.1 % (0.0-0.4); Basophil (Absolute #) 0.01 (0-0.4); Eosinophil % 1.2 % (0.00-5.0); Eosinophil (Absolute #) 0.11 (0-0.5); Hematocrit 33.2 % (35-47); Hemoglobin 10.6 gm/dl (12.0-16.0); Lymphocyte (Absolute #) 2.02 (1.0-4.6); Lymphocytes % 21.2 % (24.0-44.0); Mean Cell Volume 108.1 fl (78-100); Mean Corpuscular Hemoglobin 34.5 pg (26-32); Mean Corpuscular Hgb Concent. 31.9 g/dl (32-36); Mean Platelet Volume 10.3 fl (7.5-11.0); Monocytes % 6.3 % (0.0-12.0); Neutrophil % 71.2 % (36.0-66.0); Platelet Count 187 K/mm3 (150-450); Red Blood Count 3.07 M/mm3 (4.1-5.4); Red Cell Distribution Width 18.5 % (11.5-14.0); White Blood Count 9.5 K/mm3 (4.0-10.5)
[2020-12-10 05:54] LABS: ALBUMIN 3.2 g/dL (3.5-5.0); ALKALINE PHOSPHATASE 110 U/L (38-126); ANION GAP 6.6 MEQ/L (5-15); BLOOD UREA NITROGEN 4 mg/dL (7-17); CHLORIDE 108 mmol/L (98-107); Calcium 7.7 mg/dL (8.4-10.2); Carbon Dioxide 24 mmol/L (22-30); Creatinine 1 0.36 mg/dL (0.52-1.04); EST GLOMERULAR FILTRATION RATE > 60.0 ML/MIN; Glucose 88 mg/dL (74-106); Potassium 3.5 mmol/L (3.5-5.1); SGOT/AST 86 U/L (14-36); SGPT/ALT 22 U/L (0-35); SODIUM 134 mmol/L (137-145); Total Protein 6.1 g/dL (6.3-8.2)
[2020-12-10] MEDS ORDERED: Zofran 4 MG/2 ML VIAL IV PRN (06:15)
[2020-12-10] MEDS: Lopressor 50 MG PO SCH ×2 (09:57→21:57)
[2020-12-10] MEDS: Cozaar 50 MG PO SCH (09:57)
[2020-12-10] MEDS: PROTONIX 40 MG IV IV SCH (09:57)
--- NOTE | 2020-12-10 13:46 | HP ---
CHIEF COMPLAINT: Abdominal pain, nausea and vomiting, previous history of pancreatitis. HISTORY OF PRESENT ILLNESS: The patient is a 30 year old white female who has been suffering with pancreatic attacks for the past year or more and she had this fourth admission for the same. The patient was actually in a GI specialist office yesterday in [place] and was told to come back in six weeks. She told them she was having problems there and their reply was to go to the emergency room. PAST MEDICAL/SURGICAL HISTORY: The patient's medical history otherwise significant for cholecystectomy, exploratory laparoscopy in 2014, wisdom tooth extraction, kidney stones and endometriosis. HOME MEDICATIONS: Metoprolol 50 mg b.i.d., omeprazole 20 mg daily, Zofran 4 mg PRN for nausea, Percocet 5/325 mg t.i.d. as needed for pain. ALLERGIES: PENICILLIN. SOCIAL HISTORY: The patient is a smoker who occasionally drinks alcohol although she has been instructed not to due to her pancreas problems. PHYSICAL EXAMINATION: The patient's vital signs on admission showed temperature 97.8F, pulse 88, respiratory rate 16 and blood pressure 208/132. O2 saturation 99%. HEENT: Normocephalic, atraumatic. Pupils equal round reactive to light. Extraocular movements intact. Oropharynx is dry. NECK: Supple without lymphadenopathy, thyromegaly or JVD. CHEST: Clear to auscultation. HEART: Regular rate and rhythm. ABDOMEN: Pain in the epigastrium. No palpable masses. EXTREMITIES: Without cyanosis, clubbing or edema. NEUROLOGIC: The patient is alert and oriented x3 with no focal deficits. LAB DATA AND TESTS: Urine HCG was negative. Her CBC showed a white count of 10,500, hemoglobin 12.0, PLT count 244,000. Her metabolic panel showed glucose 108, BUN 7, creatinine 0.36, potassium slightly low at 3.1. Liver enzymes were slightly elevated with AST 39. Her lipase was noted to be 3,764. UA specific gravity 1.033, did have slight protein and otherwise essentially negative. She had troponin which was negative. Her repeat lipase was down to 1,755 after fluids. The patient's repeat CBC was essentially unchanged. Her amylase was checked this morning and was 721. ASSESSMENT: The patient is admitted for IV fluids, gut rest and IV narcotic administration with Dilaudid and monitor her amylase and lipase. The patient reports that she does have an appointment to see a GI specialist in [place] on 12/24/2020 as well and she is being instructed to keep that appointment. Hopefully she will get better in the next 24 hours and be able to return home soon.
[2020-12-10] MEDS ORDERED: Lotensin 10 MG ONE (17:24)
[2020-12-10] MEDS: Nicoderm CQ 21 MG TOP SCH (21:57)
[2020-12-11 05:18] LABS: Absolute Neutrophil Ct (ANC) 6.82 (1.4-6.9); BASOPHIL % 0.1 % (0.0-0.4); Basophil (Absolute #) 0.01 (0-0.4); Eosinophil % 1.4 % (0.00-5.0); Eosinophil (Absolute #) 0.13 (0-0.5); Hematocrit 32.1 % (35-47); Hemoglobin 10.1 gm/dl (12.0-16.0); Lymphocyte (Absolute #) 1.59 (1.0-4.6); Lymphocytes % 17.5 % (24.0-44.0); Mean Cell Volume 111.1 fl (78-100); Mean Corpuscular Hemoglobin 34.9 pg (26-32); Mean Corpuscular Hgb Concent. 31.5 g/dl (32-36); Mean Platelet Volume 10.9 fl (7.5-11.0); Monocyte (Absolute #) 0.54 (0.0-1.3); Monocytes % 5.9 % (0.0-12.0); Neutrophil % 75.1 % (36.0-66.0); Platelet Count 186 K/mm3 (150-450); Red Blood Count 2.89 M/mm3 (4.1-5.4); Red Cell Distribution Width 18.3 % (11.5-14.0); White Blood Count 9.1 K/mm3 (4.0-10.5)
[2020-12-11 05:39] LABS: ALBUMIN 3.2 g/dL (3.5-5.0); ALKALINE PHOSPHATASE 142 U/L (38-126); AMYLASE 185 U/L (30-110); ANION GAP 12.3 MEQ/L (5-15); BLOOD UREA NITROGEN 5 mg/dL (7-17); CHLORIDE 106 mmol/L (98-107); Calcium 8.3 mg/dL (8.4-10.2); Carbon Dioxide 19 mmol/L (22-30); Creatinine 1 0.36 mg/dL (0.52-1.04); EST GLOMERULAR FILTRATION RATE > 60.0 ML/MIN; Glucose 58 mg/dL (74-106); LIPASE 530 U/L (23-300); Potassium 3.9 mmol/L (3.5-5.1); SGOT/AST 60 U/L (14-36); SGPT/ALT 25 U/L (0-35); SODIUM 134 mmol/L (137-145); Total Protein 6.1 g/dL (6.3-8.2)
[2020-12-11] MEDS: DILAUDID 1 MG/1ML PCA IV PRN ×2 (06:37→14:48)
[2020-12-11] MEDS: Sodium Chloride 0.9% W/ 20 mEq KCl/LITER 1,000 ML IV SCH (07:45)
[2020-12-11] MEDS: PROTONIX 40 MG IV IV SCH (09:14)
[2020-12-11] MEDS: POTASSIUM CHLORIDE IV SCH ×2 (09:15→19:52)
[2020-12-11] MEDS: Cozaar 50 MG PO SCH (09:15)
[2020-12-11] MEDS: Lopressor 50 MG PO SCH ×2 (09:15→22:35)
[2020-12-11] MEDS: [UNRECOGNIZED DRUG - OTHER] IV SCH ×2 (09:15→19:52)
[2020-12-11] MEDS: Lotensin 10 MG PO SCH (09:48)
[2020-12-11] MEDS ORDERED: Lotensin 10 MG PO SCH (16:55)
[2020-12-11] MEDS: Nicoderm CQ 21 MG TOP SCH (22:34)
[2020-12-12] MEDS: [UNRECOGNIZED DRUG - OTHER] IV SCH (05:23)
[2020-12-12] MEDS: POTASSIUM CHLORIDE IV SCH (05:23)
[2020-12-12 05:29] LABS: Absolute Neutrophil Ct (ANC) 4.26 (1.4-6.9); BASOPHIL % 0.3 % (0.0-0.4); Basophil (Absolute #) 0.02 (0-0.4); Eosinophil % 2.6 % (0.00-5.0); Eosinophil (Absolute #) 0.16 (0-0.5); Hematocrit 34.5 % (35-47); Lymphocyte (Absolute #) 1.31 (1.0-4.6); Mean Cell Volume 109.9 fl (78-100); Mean Corpuscular Hgb Concent. 31.9 g/dl (32-36); Mean Platelet Volume 10.9 fl (7.5-11.0); Monocyte (Absolute #) 0.49 (0.0-1.3); Monocytes % 7.9 % (0.0-12.0); Neutrophil % 68.2 % (36.0-66.0); Platelet Count 188 K/mm3 (150-450); Red Blood Count 3.14 M/mm3 (4.1-5.4); Red Cell Distribution Width 18.5 % (11.5-14.0); White Blood Count 6.2 K/mm3 (4.0-10.5)
[2020-12-12 05:31] LABS: ALBUMIN 3.8 g/dL (3.5-5.0); ALKALINE PHOSPHATASE 192 U/L (38-126); AMYLASE 631 U/L (30-110); ANION GAP 9.2 MEQ/L (5-15); CHLORIDE 103 mmol/L (98-107); Calcium 9.2 mg/dL (8.4-10.2); Carbon Dioxide 26 mmol/L (22-30); Creatinine 1 0.31 mg/dL (0.52-1.04); EST GLOMERULAR FILTRATION RATE > 60.0 ML/MIN; Glucose 96 mg/dL (74-106); Potassium 3.8 mmol/L (3.5-5.1); SGOT/AST 59 U/L (14-36); SGPT/ALT 25 U/L (0-35); SODIUM 134 mmol/L (137-145); Total Protein 7.1 g/dL (6.3-8.2)
[2020-12-12 05:44] LABS: BLOOD UREA NITROGEN < 2 mg/dL (7-17)
[2020-12-12 05:45] LABS: LIPASE 3877 U/L (23-300)
[2020-12-12] MEDS: PROTONIX 40 MG IV IV SCH (09:46)
[2020-12-12] MEDS: Lopressor 50 MG PO SCH (09:46)
[2020-12-12] MEDS: Lotensin 10 MG PO SCH (09:46)
[2020-12-12] MEDS: Cozaar 50 MG PO SCH (09:46)
[2020-12-12] MEDS: Dilaudid 4 MG Tab PO PRN ×2 (09:49→13:52)
[2020-12-12 12:04] VITALS: BP 146/75; PULSE 88; O2SAT 98
== END 2020-12-12 15:55 | disposition home or self-care (01) | DRG 440 ==
LOC: ED 13:35 → MED SURG 18:27 → OBSVTOIN 12-10 08:00
PROVIDERS: ADMIT Family Medicine; ATTEND Family Medicine
DX: K85.90 Acute pancreatitis without necrosis or infection, unspecified (principal); R10.9 Unspecified abdominal pain; R11.2 Nausea with vomiting, unspecified; Z87.19 Personal history of other diseases of the digestive system; Z79.899 Other long term (current) drug therapy
CPT/HCPCS: 36415; 74177; 80053; 81001; 82150; 83690; 84132; 84484; 84703; 85025; 93268; 94762; 94770; 96360; 96374; 96375; 96376; 99285; J1170; J2270; J2405; J3480; Q0162; A9270-GY; G0378

== ENCOUNTER 2020-12-13 14:52 | Observation (INO) | payer OTHER ==
[2020-12-13] MEDS ORDERED: MORPHINE SULFATE 4 MG INJ IV ONE (15:09)
[2020-12-13] MEDS ORDERED: Zofran 4 MG/2 ML VIAL IV ONE (15:09)
[2020-12-13] MEDS ORDERED: Sodium Chloride 0.9% 1000 ML 1,000 ML IV STA (15:09)
--- NOTE | 2020-12-13 15:09 | ERPHSYRPT ---
- History of Present Illness Time Seen by Provider: 12/13/20 15:00 Historian: patient Exam Limitations: no limitations Patient Subjective Stated Complaint: Pt was released from this hospital yesterday with a diagnosis of pacreatitis, pt continues to vomit and have severe pain Triage Nursing Assessment: Pt was brought to the ER by her , tachycardic, hypertensive, pain 10/10 in RUQ that radiates to her back, pain also with palpatation, pulses normal, bowel sounds heard in all 4 quadrants, denies problems with bowels or urination Physician History: Patient is a 30-year-old female who presents with abdominal pain. Patient was yesterday for acute pancreatitis. Patient states that she still had some pain at the time of discharge but wanted to go home. When she got home she immediately started having worsening pain especially radiating. She suffer through last night but continued to get worse today so came to the ER. Patient was seen on December 09 and was admitted and stayed till the . Patient was found to have changes on the CT scan which showed inflammation at the head and the body of the pancreas. There was no signs of abscess. Patient's amylase and lipase were elevated at the time. Patient gradually got better in subsequent days during admission. She does drink occasional alcohol from her history however she denies any of that recently. Unsure of the exact etiology of her pancreatitis. Patient is to see a specialist with the [facility] on December 24. Timing/Duration: yesterday Activities at Onset: none Quality: sharpness, stabbing Abdominal Pain Onset Location: RUQ Pain Radiation: back Severity of Pain-Max: moderate Severity of Pain-Current: severe Modifying Factors: Improves With: analgesics, eating Associated Symptoms: nausea, vomiting, weakness Previous symptoms: same symptoms as today Allergies/Adverse Reactions: Penicillins Adverse Reaction (Mild, Verified 12/13/20 15:09) Rash pt states she is not had problems with antibitics related to pcn as an adult Home Medications: Metoprolol Tartrate 50 mg [Lopressor 50 MG] 50 mg PO BID 11/04/20 [History] Omeprazole 20 mg PO DAILY PRN PRN 11/04/20 [History] Ondansetron ODT 4 MG [Zofran Odt 4 mg] 4 mg PO Q6H PRN PRN 11/04/20 [History] Hx Tetanus, Diphtheria Vaccination/Date Given: Yes Hx Influenza Vaccination/Date Given: Yes Hx Pneumococcal Vaccination/Date Given: No Travel Risk - International Travel Have you traveled outside of the country in past 3 weeks: No - Coronavirus Screening Are you exhibiting any of the following symptoms?: No Close contact with a COVID-19 positive Pt in past 14-21 Days: No - Review of Systems Constitutional: No Fever, No Chills Eyes: No Symptoms Ears, Nose, & Throat: No Symptoms Respiratory: No Cough, No Dyspnea Cardiac: No Chest Pain, No Edema, No Syncope Abdominal/Gastrointestinal: Abdominal Pain, Nausea, Vomiting, No Diarrhea Genitourinary Symptoms: No Dysuria Musculoskeletal: Back Pain, No Neck Pain Skin: No Rash Neurological: No Dizziness, No Focal Weakness, No Sensory Changes Psychological: No Symptoms Endocrine: No Symptoms All Other Systems: Reviewed and Negative - Past Medical History Pertinent Past Medical History: Yes Neurological History: No Pertinent History ENT History: No Pertinent History Cardiac History: No Pertinent History Respiratory History: No Pertinent History Endocrine Medical History: No Pertinent History Musculoskeletal History: No Pertinent History GI Medical History: Pancreatitis History: No Pertinent History Psycho-Social History: No Pertinent History Female Reproductive Disorders: Endometriosis Other Medical History: Patient states, none - Past Surgical History Past Surgical History: Yes (Gallbladder and Appendectomy) Neuro Surgical History: No Pertinent History Cardiac: No Pertinent History Respiratory: No Pertinent History Gastrointestinal: Appendectomy, Cholecystectomy Genitourinary: No Pertinent History Musculoskeletal: No Pertinent History Female Surgical History: No Pertinent History Other Surgical History: exploratory laparoscopy per Dr Hidalgo 2014- negative, wisdom teeth - Social History Smoking Status: Current every day smoker How long have you smoked: 10 YEARS Exposure to second hand smoke: Yes Alcohol Use: Socially Drug Use: none Patient Lives Alone: No Significant Family History: no pertinent family hx - Female History Hx Now: No - Nursing Vital Signs Nursing Vital Signs: Initial Vital Signs Temperature 98.0 F 12/13/20 14:55 Pulse Rate 125 H 12/13/20 14:55 Blood Pressure 176/116 12/13/20 14:55 O2 Sat by Pulse Oximetry 98 12/13/20 14:55 Pain Scale Pain Intensity 9 - Physical Exam General Appearance: moderate distress, alert Eye Exam: PERRL/EOMI, eyes nml inspection Ears, Nose, Throat Exam: normal ENT inspection, pharynx normal, moist mucous membranes Neck Exam: normal inspection, non-tender, supple, full range of motion Respiratory Exam: normal breath sounds, lungs clear, No respiratory distress Cardiovascular Exam: regular rate/rhythm, normal heart sounds Gastrointestinal/Abdomen Exam: soft, tenderness, No mass (RUQ) Pelvic Exam: deferred Rectal Exam: deferred Back Exam: normal inspection, normal range of motion, No CVA tenderness, No vertebral tenderness Extremity Exam: normal inspection, normal range of motion, pelvis stable Neurologic Exam: alert, oriented x 3, cooperative, normal mood/affect, nml cerebellar function, sensation nml, No motor deficits Skin Exam: normal color, warm, dry SpO2 Interpretation: normal SpO2: 98 - Course Nursing assessment & vital signs reviewed: Yes Ordered Tests: Active Orders 24 hr Category Date Time Status Bedrest with BRP/BSC TOLERATED Activity 12/13/20 16:51 Active Up Ad Marilia TOLERATED Activity 12/13/20 16:51 Active Code Status Order ROUTINE Care 12/13/20 16:50 Active IV Insertion STAT Care 12/13/20 15:09 Active Intake and Output Q12H Care 12/13/20 16:[address] in Observation ROUTINE Care 12/13/20 16:48 Active Vital Signs Q4H Care 12/13/20 16:48 Active NPO Diet 12/13/20 16:50 Active AMYLASE Stat Lab 12/13/20 15:35 Completed CBC AM.LAB Lab 12/14/20 04:00 Ordered CBC W DIFF Stat Lab 12/13/20 15:35 Completed CMP AM.LAB Lab 12/14/20 04:00 Ordered CMP Stat Lab 12/13/20 15:35 Completed HCG,QUALITATIVE URINE Stat Lab 12/13/20 15:04 Completed LIPASE AM.LAB Lab 12/14/20 04:00 Ordered LIPASE Stat Lab 12/13/20 15:35 Completed Lactic Acid Stat Lab 12/13/20 15:35 Received UA W/RFX UR CULTURE Stat Lab 12/13/20 15:04 Completed Pulse Oximetry ROUTINE RT 12/13/20 16:51 Active Medication Summary Generic Name Dose Route Start Last Admin Trade Name Freq PRN Reason Stop Dose Admin Hydromorphone HCl 1 mg 12/13/20 16:52 12/13/20 17:03 Hydromorphone 1 Mg/Ml Injection IV 12/18/20 16:51 1 mg Q4H PRN PRN Administration PAIN Sodium Chloride 1,000 mls @ 100 mls/hr 12/13/20 17:00 Sodium Chloride 0.9% 1000 Ml IV 01/12/21 16:59 .Q10H ANTONIO Ondansetron HCl 4 mg 12/13/20 16:53 Zofran 4 Mg/2 Ml Vial IV 01/12/21 16:52 Q6H PRN PRN NAUSEA Discontinued Medications Generic Name Dose Route Start Last Admin Trade Name Freq PRN Reason Stop Dose Admin Hydromorphone HCl 1 mg 12/13/20 16:00 12/13/20 16:01 Hydromorphone 1 Mg/Ml Injection IV 12/13/20 16:01 1 mg STAT ONE Administration Hydromorphone HCl Confirm 12/13/20 16:01 Hydromorphone 1 Mg/Ml Injection Administered 12/13/20 16:02 Dose 1 mg .ROUTE .STK-MED ONE Sodium Chloride 1,000 mls @ 999 mls/hr 12/13/20 15:09 12/13/20 16:27 Sodium Chloride 0.9% 1000 Ml IV 12/13/20 16:09 Infused .Q1H1M STA Infusion Sodium Chloride Confirm 12/13/20 15:14 Sodium Chloride 0.9% 1000 Ml Administered 12/13/20 15:15 Dose 1,000 mls @ ud .ROUTE .STK-MED ONE Morphine Sulfate 4 mg 12/13/20 15:09 12/13/20 15:16 Morphine Sulfate 4 Mg Inj IV 12/13/20 15:10 4 mg STAT ONE Administration Morphine Sulfate Confirm 12/13/20 15:13 Morphine Sulfate 4 Mg Inj Administered 12/13/20 15:14 Dose 4 mg .ROUTE .STK-MED ONE Ondansetron HCl 4 mg 12/13/20 15:09 12/13/20 15:16 Zofran 4 Mg/2 Ml Vial IV 12/13/20 15:10 4 mg STAT ONE Administration Ondansetron HCl Confirm 12/13/20 15:13 Zofran 4 Mg/2 Ml Vial Administered 12/13/20 15:14 Dose 4 mg .ROUTE .STK-MED ONE Lab/Rad Data: Laboratory Result Diagrams 12/13/20 15:35 12/13/20 15:35 Laboratory Results 12/13/20 12/13/20 12/13/20 Range/Units 15:35 15:35 15:04 WBC 6.3 (4.0-10.5) K/mm3 RBC 3.19 L (4.1-5.4) M/mm3 Hgb 11.3 L (12.0-16.0) gm/dl Hct 34.0 L (35-47) % MCV 106.6 H (78-100) fl MCH 35.4 H (26-32) pg MCHC 33.2 (32-36) g/dl RDW 18.7 H (11.5-14.0) % Plt Count 274 D (150-450) K/mm3 MPV 10.1 (7.5-11.0) fl Gran % 73.9 H (36.0-66.0) % Eos # (Auto) 0.07 (0-0.5) Absolute Lymphs (auto) 1.15 (1.0-4.6) Absolute Monos (auto) 0.41 (0.0-1.3) Lymphocytes % 18.3 L (24.0-44.0) % Monocytes % 6.5 (0.0-12.0) % Eosinophils % 1.1 (0.00-5.0) % Basophils % 0.2 (0.0-0.4) % Absolute Granulocytes 4.63 (1.4-6.9) Basophils # 0.01 (0-0.4) Sodium 138 (137-145) mmol/L Potassium 3.4 L (3.5-5.1) mmol/L Chloride 104 (98-107) mmol/L Carbon Dioxide 22 (22-30) mmol/L Anion Gap 15.3 H (5-15) MEQ/L BUN < 2 L (7-17) mg/dL Creatinine 0.43 L (0.52-1.04) mg/dL Estimated GFR > 60.0 ML/MIN Glucose 79 (74-106) mg/dL Calcium 10.0 (8.4-10.2) mg/dL Total Bilirubin 0.70 (0.2-1.3) mg/dL AST 36 (14-36) U/L ALT 22 (0-35) U/L Alkaline Phosphatase 188 H (38-126) U/L Serum Total Protein 8.3 H (6.3-8.2) g/dL Albumin 4.4 (3.5-5.0) g/dL Amylase 94 (30-110) U/L Lipase 528 H (23-300) U/L Urine Color (YELLOW) Urine Appearance (CLEAR) Urine pH (5-6) Ur Specific [place] (1.005-1.025) Urine Protein (Negative) Urine Ketones (NEGATIVE) Urine Blood (0-5) [place]/ul Urine Nitrite (NEGATIVE) Urine Bilirubin (NEGATIVE) Urine Urobilinogen (0-1) mg/dL Ur Leukocyte Esterase (NEGATIVE) Urine WBC (Auto) (0-5) /HPF Urine RBC (Auto) (0-2) /HPF U Epithel Cells (Auto) (FEW) /HPF Urine Bacteria (Auto) (NEGATIVE) /HPF Urine Mucus (Auto) (NEGATIVE) /HPF Urine Culture Reflexed (NO) Urine Glucose (NEGATIVE) mg/dL Urine HCG, Qual NEGATIVE (Negative) 12/13/20 Range/Units 15:04 WBC (4.0-10.5) K/mm3 RBC (4.1-5.4) M/mm3 Hgb (12.0-16.0) gm/dl Hct (35-47) % MCV (78-100) fl MCH (26-32) pg MCHC (32-36) g/dl RDW (11.5-14.0) % Plt Count (150-450) K/mm3 MPV (7.5-11.0) fl Gran % (36.0-66.0) % Eos # (Auto) (0-0.5) Absolute Lymphs (auto) (1.0-4.6) Absolute Monos (auto) (0.0-1.3) Lymphocytes % (24.0-44.0) % Monocytes % (0.0-12.0) % Eosinophils % (0.00-5.0) % Basophils % (0.0-0.4) % Absolute Granulocytes (1.4-6.9) Basophils # (0-0.4) Sodium (137-145) mmol/L Potassium (3.5-5.1) mmol/L Chloride (98-107) mmol/L Carbon Dioxide (22-30) mmol/L Anion Gap (5-15) MEQ/L BUN (7-17) mg/dL Creatinine (0.52-1.04) mg/dL Estimated GFR ML/MIN Glucose (74-106) mg/dL Calcium (8.4-10.2) mg/dL Total Bilirubin (0.2-1.3) mg/dL AST (14-36) U/L ALT (0-35) U/L Alkaline Phosphatase (38-126) U/L Serum Total Protein (6.3-8.2) g/dL Albumin (3.5-5.0) g/dL Amylase (30-110) U/L Lipase (23-300) U/L Urine Color STRAW (YELLOW) Urine Appearance SLIGHTLY CLOUDY (CLEAR) Urine pH 7.0 (5-6) Ur Specific [place] 1.002 (1.005-1.025) Urine Protein NEGATIVE (Negative) Urine Ketones NEGATIVE (NEGATIVE) Urine Blood NEGATIVE (0-5) [place]/ul Urine Nitrite NEGATIVE (NEGATIVE) Urine Bilirubin NEGATIVE (NEGATIVE) Urine Urobilinogen NEGATIVE (0-1) mg/dL Ur Leukocyte Esterase NEGATIVE (NEGATIVE) Urine WBC (Auto) NONE (0-5) /HPF Urine RBC (Auto) NONE (0-2) /HPF U Epithel Cells (Auto) RARE (FEW) /HPF Urine Bacteria (Auto) NONE SEEN (NEGATIVE) /HPF Urine Mucus (Auto) SLIGHT (NEGATIVE) /HPF Urine Culture Reflexed NO (NO) Urine Glucose NEGATIVE (NEGATIVE) mg/dL Urine HCG, Qual (Negative) - Progress Progress: improved Discussed with : Maria Teresa Will see patient in: hospital (observation) Counseled pt/family regarding: lab results, diagnosis - Departure Departure Disposition: Observation Clinical Impression: Acute pancreatitis Condition: Stable Critical Care Time: No Referrals: TAMELA KHAN [Primary Care Provider] -
[2020-12-13] MEDS ORDERED: MORPHINE SULFATE 4 MG INJ ONE (15:13)
[2020-12-13] MEDS ORDERED: Zofran 4 MG/2 ML VIAL ONE (15:13)
[2020-12-13] MEDS ORDERED: Sodium Chloride 0.9% 1000 ML 1,000 ML ONE (15:14)
[2020-12-13 15:47] LABS: Appearance SLIGHTLY CLOUDY (CLEAR); Bilirubin NEGATIVE (NEGATIVE); Blood NEGATIVE Ery/ul (0-5); Epithelial Cells RARE /HPF (FEW); Glucose NEGATIVE (NEGATIVE); Ketones NEGATIVE (NEGATIVE); Leukocyte Esterase NEGATIVE (NEGATIVE); Mucus SLIGHT /HPF (NEGATIVE); Nitrite NEGATIVE (NEGATIVE); Protein,Urine Dip NEGATIVE (Negative); Specific Gravity 1.002 (1.005-1.025); Urobilinogen NEGATIVE mg/dL (0-1)
[2020-12-13 15:47] LABS: Absolute Neutrophil Ct (ANC) 4.63 (1.4-6.9); BASOPHIL % 0.2 % (0.0-0.4); Basophil (Absolute #) 0.01 (0-0.4); Eosinophil % 1.1 % (0.00-5.0); Eosinophil (Absolute #) 0.07 (0-0.5); Hemoglobin 11.3 gm/dl (12.0-16.0); Lymphocyte (Absolute #) 1.15 (1.0-4.6); Lymphocytes % 18.3 % (24.0-44.0); Mean Cell Volume 106.6 fl (78-100); Mean Corpuscular Hemoglobin 35.4 pg (26-32); Mean Corpuscular Hgb Concent. 33.2 g/dl (32-36); Mean Platelet Volume 10.1 fl (7.5-11.0); Monocyte (Absolute #) 0.41 (0.0-1.3); Monocytes % 6.5 % (0.0-12.0); Neutrophil % 73.9 % (36.0-66.0); Platelet Count 274 K/mm3 (150-450); Red Blood Count 3.19 M/mm3 (4.1-5.4); Red Cell Distribution Width 18.7 % (11.5-14.0); White Blood Count 6.3 K/mm3 (4.0-10.5)
[2020-12-13 15:57] LABS: Bacteria NONE SEEN /HPF (NEGATIVE)
[2020-12-13] MEDS ORDERED: Hydromorphone 1 mg/ml Injection IV ONE (16:00)
[2020-12-13] MEDS ORDERED: Hydromorphone 1 mg/ml Injection ONE (16:01)
[2020-12-13 16:15] LABS: ALBUMIN 4.4 g/dL (3.5-5.0); ALKALINE PHOSPHATASE 188 U/L (38-126); AMYLASE 94 U/L (30-110); ANION GAP 15.3 MEQ/L (5-15); CHLORIDE 104 mmol/L (98-107); Carbon Dioxide 22 mmol/L (22-30); Creatinine 1 0.43 mg/dL (0.52-1.04); EST GLOMERULAR FILTRATION RATE > 60.0 ML/MIN; Glucose 79 mg/dL (74-106); LIPASE 528 U/L (23-300); Potassium 3.4 mmol/L (3.5-5.1); SGOT/AST 36 U/L (14-36); SGPT/ALT 22 U/L (0-35); SODIUM 138 mmol/L (137-145); Total Protein 8.3 g/dL (6.3-8.2)
[2020-12-13 16:38] LABS: BLOOD UREA NITROGEN < 2 mg/dL (7-17)
[2020-12-13] MEDS: Hydromorphone 1 mg/ml Injection IV PRN ×2 (17:03→20:19)
[2020-12-13] MEDS: Sodium Chloride 0.9% 1000 ML 1,000 ML IV SCH (17:43)
[2020-12-13] MEDS: Zofran 4 MG/2 ML VIAL IV PRN (18:52)
[2020-12-13] MEDS: Nicoderm CQ 21 MG TOP SCH (21:50)
[2020-12-13] MEDS: Lopressor 50 MG PO SCH (21:53)
[2020-12-14] MEDS: Hydromorphone 1 mg/ml Injection IV PRN ×3 (00:06→09:14)
[2020-12-14] MEDS: Zofran 4 MG/2 ML VIAL IV PRN ×4 (03:06→19:18)
[2020-12-14 06:24] LABS: Hemoglobin 9.9 gm/dl (12.0-16.0); Mean Cell Volume 110.3 fl (78-100); Mean Corpuscular Hemoglobin 35.2 pg (26-32); Mean Corpuscular Hgb Concent. 31.9 g/dl (32-36); Mean Platelet Volume 10.3 fl (7.5-11.0); Platelet Count 260 K/mm3 (150-450); Red Blood Count 2.81 M/mm3 (4.1-5.4); Red Cell Distribution Width 18.9 % (11.5-14.0); White Blood Count 6.2 K/mm3 (4.0-10.5)
[2020-12-14 06:29] LABS: ALBUMIN 3.5 g/dL (3.5-5.0); ALKALINE PHOSPHATASE 136 U/L (38-126); ANION GAP 8.2 MEQ/L (5-15); BLOOD UREA NITROGEN 3 mg/dL (7-17); CHLORIDE 103 mmol/L (98-107); Calcium 8.5 mg/dL (8.4-10.2); Carbon Dioxide 26 mmol/L (22-30); Creatinine 1 0.36 mg/dL (0.52-1.04); EST GLOMERULAR FILTRATION RATE > 60.0 ML/MIN; Glucose 100 mg/dL (74-106); LIPASE 519 U/L (23-300); Potassium 3.1 mmol/L (3.5-5.1); SGOT/AST 28 U/L (14-36); SGPT/ALT 15 U/L (0-35); SODIUM 135 mmol/L (137-145); Total Protein 6.4 g/dL (6.3-8.2)
[2020-12-14] MEDS ORDERED: NON-FORMULARY ITEM (Omeprazole [Omeprazole] 20 MG) PO PRN (07:46)
[2020-12-14] MEDS ORDERED: ZOFRAN ODT 4 MG PO PRN (07:49)
[2020-12-14] MEDS ORDERED: Protonix 40MG Tablet PO PRN (07:49)
--- NOTE | 2020-12-14 08:36 | PCM.HP ---
History of Present Illness - Chief Complaint Chief Complaint: pancreatitis History of Present Illness: is a 30 year old female.who presents with abdominal pain. Patient was yesterday for acute pancreatitis. Patient states that she still had some pain at the time of discharge but wanted to go home. When she got home she immediately started having worsening pain especially radiating. She suffer through last night but continued to get worse today so came to the ER. Patient was seen on December 09 and was admitted and stayed till the . Patient was found to have changes on the CT scan which showed inflammation at the head and the body of the pancreas. There was no signs of abscess. Patient's amylase and lipase were elevated at the time. Patient gradually got better in subsequent days during admission. She does drink occasional alcohol from her history however she denies any of that recently. Unsure of the exact etiology of her pancreatitis. Patient is to see a specialist with the [facility] on December 24. - Review of Systems Constitutional: No Fever, No Chills Eyes: No Symptoms Ears, Nose, & Throat: No Symptoms Respiratory: No Cough, No Short Of Breath Cardiac: No Chest Pain, No Edema, No Syncope Abdominal/Gastrointestinal: Abdominal Pain, Nausea, Vomiting, No Diarrhea Genitourinary Symptoms: No Dysuria Musculoskeletal: No Back Pain, No Neck Pain Skin: No Rash Neurological: No Dizziness, No Focal Weakness, No Sensory Changes Psychological: No Symptoms Endocrine: No Symptoms Hematologic/Lymphatic: No Symptoms Immunological/Allergic: No Symptoms Medications & Allergies Home Medications: Home Medication List Metoprolol Tartrate 50 mg [Lopressor 50 MG] 50 mg PO BID 11/04/20 [History Confirmed 12/13/20] Omeprazole 20 mg PO DAILY PRN PRN 11/04/20 [History Confirmed 12/13/20] Ondansetron ODT 4 MG [Zofran Odt 4 mg] 4 mg PO Q6H PRN PRN 11/04/20 [History Confirmed 12/13/20] Losartan Potassium 50 mg [Cozaar 50 MG] 50 mg PO DAILY #30 tablet 11/10/20 [Rx Confirmed 12/13/20] Benazepril HCl 10 mg [Lotensin 10 MG] 10 mg PO DAILY #30 tablet 12/12/20 [Rx Confirmed 12/13/20] Allergies/Adverse Reactions: Allergies Allergy/AdvReac Type Severity Reaction Status Date / Time Penicillins AdvReac Mild Rash Verified 12/13/20 17:36 - Past Medical History Past Medical History: Yes Neurological History: No Pertinent History ENT History: No Pertinent History Cardiac History: No Pertinent History Respiratory History: No Pertinent History Endocrine Medical History: No Pertinent History Musculoskelatal History: No Pertinent History GI Medical History: Pancreatitis History: No Pertinent History Pyscho-Social History: No Pertinent History Reproductive Disorders: Endometriosis Comment: Patient states, none - Female History Are you now?: No - Past Surgical History Past Surgical History: Yes Neuro Surgical History: No Pertinent History Cardiac History: No Pertinent History Respiratory Surgery: No Pertinent History GI Surgical History: Appendectomy, Cholecystectomy Genitourinary Surgical Hx: No Pertinent History Musculskeletal Surgical Hx: No Pertinent History Female Surgical History: No Pertinent History Other Surgical History: exploratory laparoscopy per Dr Hidalgo 2014- negative, wisdom teeth - Social History Smoking Status: Current every day smoker How long have you smoked: 10 YEARS Exposure to second hand smoke: Yes Alcohol: None Drug Use: none Significant Family History: no pertinent family hx - Physical Exam Vital Signs: Vital Signs - 24 hr Temp Pulse Resp BP Pulse Ox 12/14/20 08:03 96 12/14/20 07:51 98.1 F 84 18 138/92 98 12/14/20 04:00 97.2 F 78 19 172/92 98 12/13/20 23:46 97.5 F 80 19 161/90 98 12/13/20 20:00 97.3 F 96 H 20 154/95 99 12/13/20 19:05 95 12/13/20 17:49 97.6 F 92 H 18 169/97 100 12/13/20 17:34 97.6 F 92 H 18 169/97 100 12/13/20 17:20 98 12/13/20 17:17 97.6 F 92 H 18 169/97 100 12/13/20 17:14 98 12/13/20 17:01 96 H 20 173/108 98 12/13/20 16:00 92 H 18 167/110 94 L 12/13/20 15:50 108 H 20 173/112 99 12/13/20 14:55 98.0 F 125 H 176/116 98 General Appearance: no apparent distress, alert Neurologic Exam: alert, oriented x 3, cooperative, normal mood/affect, nml cerebellar function, nml station & gait, sensation nml, No motor deficits Eye Exam: PERRL/EOMI, eyes nml inspection Ears, Nose, Throat Exam: normal ENT inspection, TMs normal, pharynx normal, moist mucous membranes Neck Exam: normal inspection, non-tender, supple, full range of motion Respiratory Exam: normal breath sounds, lungs clear, No respiratory distress Cardiovascular Exam: regular rate/rhythm, normal heart sounds, normal peripheral pulses Gastrointestinal/Abdomen Exam: soft, normal bowel sounds, tenderness, No dis tention, No mass Back Exam: normal inspection, normal range of motion, No CVA tenderness, No vertebral tenderness Extremity Exam: normal inspection, normal range of motion, pelvis stable Skin Exam: normal color, warm, dry, No rash Lymphatic Exam: No adenopathy Results - Labs Lab/Micro Results: Lab Results-Last 24 Hours 12/13/20 12/13/20 12/13/20 Range/Units 15:04 15:04 15:35 WBC 6.3 (4.0-10.5) K/mm3 RBC 3.19 L (4.1-5.4) M/mm3 Hgb 11.3 L (12.0-16.0) gm/dl Hct 34.0 L (35-47) % MCV 106.6 H (78-100) fl MCH 35.4 H (26-32) pg MCHC 33.2 (32-36) g/dl RDW 18.7 H (11.5-14.0) % Plt Count 274 D (150-450) K/mm3 MPV 10.1 (7.5-11.0) fl Gran % 73.9 H (36.0-66.0) % Eos # (Auto) 0.07 (0-0.5) Absolute Lymphs (auto) 1.15 (1.0-4.6) Absolute Monos (auto) 0.41 (0.0-1.3) Lymphocytes % 18.3 L (24.0-44.0) % Monocytes % 6.5 (0.0-12.0) % Eosinophils % 1.1 (0.00-5.0) % Basophils % 0.2 (0.0-0.4) % Absolute Granulocytes 4.63 (1.4-6.9) Basophils # 0.01 (0-0.4) Sodium (137-145) mmol/L Potassium (3.5-5.1) mmol/L Chloride (98-107) mmol/L Carbon Dioxide (22-30) mmol/L Anion Gap (5-15) MEQ/L BUN (7-17) mg/dL Creatinine (0.52-1.04) mg/dL Estimated GFR ML/MIN Glucose (74-106) mg/dL Calcium (8.4-10.2) mg/dL Total Bilirubin (0.2-1.3) mg/dL AST (14-36) U/L ALT (0-35) U/L Alkaline Phosphatase (38-126) U/L Serum Total Protein (6.3-8.2) g/dL Albumin (3.5-5.0) g/dL Amylase (30-110) U/L Lipase (23-300) U/L Urine Color STRAW (YELLOW) Urine Appearance SLIGHTLY CLOUDY (CLEAR) Urine pH 7.0 (5-6) Ur Specific [place] 1.002 (1.005-1.025) Urine Protein NEGATIVE (Negative) Urine Ketones NEGATIVE (NEGATIVE) Urine Blood NEGATIVE (0-5) [place]/ul Urine Nitrite NEGATIVE (NEGATIVE) Urine Bilirubin NEGATIVE (NEGATIVE) Urine Urobilinogen NEGATIVE (0-1) mg/dL Ur Leukocyte Esterase NEGATIVE (NEGATIVE) Urine WBC (Auto) NONE (0-5) /HPF Urine RBC (Auto) NONE (0-2) /HPF U Epithel Cells (Auto) RARE (FEW) /HPF Urine Bacteria (Auto) NONE SEEN (NEGATIVE) /HPF Urine Mucus (Auto) SLIGHT (NEGATIVE) /HPF Urine Culture Reflexed NO (NO) Urine Glucose NEGATIVE (NEGATIVE) mg/dL Urine HCG, Qual NEGATIVE (Negative) 12/13/20 12/14/20 12/14/20 Range/Units 15:35 05:45 05:45 WBC 6.2 (4.0-10.5) K/mm3 RBC 2.81 L (4.1-5.4) M/mm3 Hgb 9.9 L (12.0-16.0) gm/dl Hct 31.0 L (35-47) % MCV 110.3 H (78-100) fl MCH 35.2 H (26-32) pg MCHC 31.9 L (32-36) g/dl RDW 18.9 H (11.5-14.0) % Plt Count 260 (150-450) K/mm3 MPV 10.3 (7.5-11.0) fl Gran % (36.0-66.0) % Eos # (Auto) (0-0.5) Absolute Lymphs (auto) (1.0-4.6) Absolute Monos (auto) (0.0-1.3) Lymphocytes % (24.0-44.0) % Monocytes % (0.0-12.0) % Eosinophils % (0.00-5.0) % Basophils % (0.0-0.4) % Absolute Granulocytes (1.4-6.9) Basophils # (0-0.4) Sodium 138 135 L (137-145) mmol/L Potassium 3.4 L 3.1 L (3.5-5.1) mmol/L Chloride 104 103 (98-107) mmol/L Carbon Dioxide 22 26 (22-30) mmol/L Anion Gap 15.3 H 8.2 (5-15) MEQ/L BUN < 2 L 3 L (7-17) mg/dL Creatinine 0.43 L 0.36 L (0.52-1.04) mg/dL Estimated GFR > 60.0 > 60.0 ML/MIN Glucose 79 100 (74-106) mg/dL Calcium 10.0 8.5 (8.4-10.2) mg/dL Total Bilirubin 0.70 0.50 (0.2-1.3) mg/dL AST 36 28 (14-36) U/L ALT 22 15 (0-35) U/L Alkaline Phosphatase 188 H 136 H (38-126) U/L Serum Total Protein 8.3 H 6.4 (6.3-8.2) g/dL Albumin 4.4 3.5 (3.5-5.0) g/dL Amylase 94 (30-110) U/L Lipase 528 H 519 H (23-300) U/L Urine Color (YELLOW) Urine Appearance (CLEAR) Urine pH (5-6) Ur Specific [place] (1.005-1.025) Urine Protein (Negative) Urine Ketones (NEGATIVE) Urine Blood (0-5) [place]/ul Urine Nitrite (NEGATIVE) Urine Bilirubin (NEGATIVE) Urine Urobilinogen (0-1) mg/dL Ur Leukocyte Esterase (NEGATIVE) Urine WBC (Auto) (0-5) /HPF Urine RBC (Auto) (0-2) /HPF U Epithel Cells (Auto) (FEW) /HPF Urine Bacteria (Auto) (NEGATIVE) /HPF Urine Mucus (Auto) (NEGATIVE) /HPF Urine Culture Reflexed (NO) Urine Glucose (NEGATIVE) mg/dL Urine HCG, Qual (Negative) Assessment/Plan (1) Acute pancreatitis Current Visit: Yes Status: Acute Qualifiers: Pancreatitis type: unspecified pancreatitis type Code(s): K85.90 - ACUTE PANCREATITIS WITHOUT NECROSIS OR INFECTION, UNSP (2) Nausea & vomiting Current Visit: Yes Status: Acute Code(s): R11.2 - NAUSEA WITH VOMITING, UNSPECIFIED (3) Vomiting Current Visit: No Status: Resolved Code(s): R11.10 - VOMITING, UNSPECIFIED
[2020-12-14] MEDS: Lopressor 50 MG PO SCH ×2 (09:17→22:08)
[2020-12-14] MEDS ORDERED: Lotensin 10 MG PO SCH (10:00)
[2020-12-14] MEDS ORDERED: Cozaar 50 MG PO SCH (10:00)
[2020-12-14] MEDS: Sodium Chloride 0.9% 1000 ML 1,000 ML IV SCH ×2 (10:29→20:30)
[2020-12-14] MEDS: DILAUDID 1 MG/1ML PCA IV PRN (10:51)
[2020-12-14] MEDS ORDERED: hydroDIURIL 25 MG PO ONE (16:09)
[2020-12-14] MEDS ORDERED: Cozaar 50 MG PO ONE (16:10)
[2020-12-14] MEDS: Nicoderm CQ 21 MG TOP SCH (22:08)
[2020-12-15] MEDS: Zofran 4 MG/2 ML VIAL IV PRN ×4 (00:06→20:53)
[2020-12-15] MEDS: Sodium Chloride 0.9% 1000 ML 1,000 ML IV SCH ×3 (02:51→14:29)
[2020-12-15] MEDS: DILAUDID 1 MG/1ML PCA IV PRN (05:37)
[2020-12-15 05:55] LABS: Hematocrit 31.9 % (35-47); Hemoglobin 10.2 gm/dl (12.0-16.0); Mean Cell Volume 108.5 fl (78-100); Mean Corpuscular Hemoglobin 34.7 pg (26-32); Mean Platelet Volume 10.2 fl (7.5-11.0); Platelet Count 279 K/mm3 (150-450); Red Blood Count 2.94 M/mm3 (4.1-5.4); Red Cell Distribution Width 18.3 % (11.5-14.0); White Blood Count 6.3 K/mm3 (4.0-10.5)
[2020-12-15 06:31] LABS: ALBUMIN 3.6 g/dL (3.5-5.0); ALKALINE PHOSPHATASE 113 U/L (38-126); ANION GAP 8.9 MEQ/L (5-15); CHLORIDE 101 mmol/L (98-107); Calcium 8.9 mg/dL (8.4-10.2); Carbon Dioxide 29 mmol/L (22-30); Creatinine 1 0.48 mg/dL (0.52-1.04); EST GLOMERULAR FILTRATION RATE > 60.0 ML/MIN; Glucose 99 mg/dL (74-106); Potassium 3.2 mmol/L (3.5-5.1); SGOT/AST 33 U/L (14-36); SGPT/ALT 18 U/L (0-35); SODIUM 136 mmol/L (137-145); Total Protein 6.7 g/dL (6.3-8.2)
[2020-12-15 06:55] LABS: BLOOD UREA NITROGEN < 2 mg/dL (7-17)
[2020-12-15 08:42] LABS: AMYLASE 62 U/L (30-110); LIPASE 393 U/L (23-300)
[2020-12-15] MEDS: hydroDIURIL 25 MG PO SCH (09:57)
[2020-12-15] MEDS: Cozaar 50 MG PO SCH (09:58)
[2020-12-15] MEDS: Lopressor 50 MG PO SCH ×2 (09:59→20:54)
--- NOTE | 2020-12-15 11:53 | PCM.NOTE ---
Date and Time: 12/15/20 1152 Subjective Assessment: doing ok - Review of Systems Constitutional: No Fever, No Chills Eyes: No Symptoms Ears, Nose, & Throat: No Symptoms Respiratory: No Cough, No Short Of Breath Cardiac: No Chest Pain, No Edema, No Syncope Abdominal/Gastrointestinal: No Abdominal Pain, No Nausea, No Vomiting, No Diarrhea Genitourinary Symptoms: No Dysuria Musculoskeletal: No Back Pain, No Neck Pain Skin: No Rash Neurological: No Dizziness, No Focal Weakness, No Sensory Changes Psychological: No Symptoms Endocrine: No Symptoms Hematologic/Lymphatic: No Symptoms Immunological/Allergic: No Symptoms Objective Exam General Appearance: no apparent distress, alert Neurologic Exam: alert, oriented x 3, cooperative, normal mood/affect, nml cerebellar function, sensation nml, No motor deficits Skin Exam: normal color, warm, dry Eye Exam: PERRL, EOMI, eyes nml inspection Ears, Nose, Throat Exam: normal ENT inspection, pharynx normal, moist mucous membranes Neck Exam: normal inspection, non-tender, supple, full range of motion Respiratory Exam: normal breath sounds, lungs clear, No respiratory distress Cardiovascular Exam: regular rate/rhythm, normal heart sounds Gastrointestinal/Abdomen Exam: soft, No tenderness, No mass Extremity Exam: normal inspection, normal range of motion Back Exam: normal inspection, normal range of motion, No CVA tenderness, No vertebral tenderness Pelvic Exam: deferred Rectal Exam: deferred OBJECTIVE DATA Vital Signs: Vital Signs - 24 hr Temp Pulse Resp BP Pulse Ox 12/15/20 11:00 97.9 F 78 18 170/87 96 12/15/20 09:37 98 12/15/20 08:04 95 12/15/20 08:00 18 12/15/20 07:00 97.9 F 84 16 157/86 99 12/15/20 05:37 99 12/15/20 04:00 18 12/15/20 03:00 97.6 F 70 18 175/96 96 12/15/20 00:00 20 12/14/20 23:00 97.2 F 73 20 177/99 99 12/14/20 22:51 99 12/14/20 20:13 95 12/14/20 19:50 97.3 F 75 19 97 12/14/20 17:51 75 165/92 12/14/20 16:00 97.4 F 86 18 192/104 96 12/14/20 12:00 16 Pain Assessment - Last Documented Pain Intensity 8 Pain Scale Used 0-10 Pain Scale Intake and Output: Intake & Output 12/12/20 12/13/20 12/14/20 12/15/20 11:59 11:59 11:59 11:59 Intake Total 444 2443 Output Total 950 1100 Balance -506 1343 Weight 70.5 kg Lab Results: Lab Results-Last 24 Hours 12/15/20 12/15/20 12/15/20 Range/Units 05:33 05:33 05:33 WBC 6.3 (4.0-10.5) K/mm3 RBC 2.94 L (4.1-5.4) M/mm3 Hgb 10.2 L (12.0-16.0) gm/dl Hct 31.9 L (35-47) % MCV 108.5 H (78-100) fl MCH 34.7 H (26-32) pg MCHC 32.0 (32-36) g/dl RDW 18.3 H (11.5-14.0) % Plt Count 279 (150-450) K/mm3 MPV 10.2 (7.5-11.0) fl Sodium 136 L (137-145) mmol/L Potassium 3.2 L (3.5-5.1) mmol/L Chloride 101 (98-107) mmol/L Carbon Dioxide 29 (22-30) mmol/L Anion Gap 8.9 (5-15) MEQ/L BUN < 2 L (7-17) mg/dL Creatinine 0.48 L (0.52-1.04) mg/dL Estimated GFR > 60.0 ML/MIN Glucose 99 (74-106) mg/dL Calcium 8.9 (8.4-10.2) mg/dL Total Bilirubin 0.60 (0.2-1.3) mg/dL AST 33 (14-36) U/L ALT 18 (0-35) U/L Alkaline Phosphatase 113 (38-126) U/L Serum Total Protein 6.7 (6.3-8.2) g/dL Albumin 3.6 (3.5-5.0) g/dL Amylase 62 (30-110) U/L Lipase 393 H (23-300) U/L Assessment/Plan (1) Acute pancreatitis Current Visit: Yes Status: Acute Qualifiers: Pancreatitis type: unspecified pancreatitis type Assessment & Plan: Last Vital Signs Temp 97.9 F 12/15/20 11:00 Pulse 78 12/15/20 11:00 Resp 18 12/15/20 11:00 BP 170/87 12/15/20 11:00 Pulse Ox 96 12/15/20 11:00 Allergies Penicillins Adverse Reaction (Mild, Verified 12/13/20 17:36) Rash pt states she is not had problems with antibitics related to pcn as an adult Active Medications Hydrochlorothiazide (Hydrodiuril 25 Mg) 25 mg PO DAILY ANTONIO Stop: 01/14/21 09:59 Last Admin: 12/15/20 09:57 Dose: 25 mg Documented by: Hydromorphone HCl (Dilaudid 1 Mg/1ml Geothermal Operations Engineer) 30 mg IV UD PRN PRN Reason: PAIN Stop: 12/19/20 10:17 Last Admin: 12/15/20 05:37 Dose: 1 mg Documented by: Sodium Chloride (Sodium Chloride 0.9% 1000 Ml) 1,000 mls @ 100 mls/hr IV .Q10H ANTONIO Stop: 01/12/21 16:59 Last Admin: 12/15/20 05:20 Dose: 100 mls/hr Documented by: Losartan Potassium (Cozaar 50 Mg) 100 mg PO DAILY ANTONIO Stop: 01/14/21 09:59 Last Admin: 12/15/20 09:58 Dose: 100 mg Documented by: Metoprolol Tartrate (Lopressor 50 Mg) 50 mg PO BID ANTONIO Stop: 01/12/21 21:59 Last Admin: 12/15/20 09:59 Dose: 50 mg Documented by: Nicotine (Nicoderm Cq 21 Mg) 21 mg TOP Q24H ANTONIO Stop: 01/12/21 21:29 Last Admin: 12/14/20 22:08 Dose: 21 mg Documented by: Ondansetron HCl (Zofran Odt 4 Mg) 4 mg PO Q6H PRN PRN PRN Reason: NAUSEA Stop: 01/13/21 07:48 Ondansetron HCl (Zofran 4 Mg/2 Ml Vial) 4 mg IV Q4H PRN PRN PRN Reason: NAUSEA Stop: 01/13/21 10:21 Last Admin: 12/15/20 10:03 Dose: 4 mg Documented by: Pantoprazole Sodium (Protonix 40mg Tablet) 40 mg PO DAILY PRN PRN PRN Reason: reflux Stop: 01/13/21 07:48 Intake & Output 12/14/20 12/15/20 11:59 11:59 Intake Total 444 2443 Output Total 950 1100 Balance -506 1343 Weight 70.5 kg Orders 12/14/20 11:12 Pulse Oximetry .continuos 12/15/20 10:00 Hydrochlorothiazide 25 mg [hydroDIURIL 25 MG] 25 mg PO DAILY Losartan Potassium 50 mg [Cozaar 50 MG] 100 mg PO DAILY Lab Tests 12/15/20 12/15/20 12/15/20 05:33 05:33 05:33 WBC 6.3 RBC 2.94 L Hgb 10.2 L Hct 31.9 L MCV 108.5 H MCH 34.7 H MCHC 32.0 RDW 18.3 H Plt Count 279 MPV 10.2 Sodium 136 L Potassium 3.2 L Chloride 101 Carbon Dioxide 29 Anion Gap 8.9 BUN < 2 L Creatinine 0.48 L Estimated GFR > 60.0 Glucose 99 Calcium 8.9 Total Bilirubin 0.60 AST 33 ALT 18 Alkaline Phosphatase 113 Serum Total Protein 6.7 Albumin 3.6 Amylase 62 Lipase 393 H Code(s): K85.90 - ACUTE PANCREATITIS WITHOUT NECROSIS OR INFECTION, UNSP (2) Nausea & vomiting Current Visit: Yes Status: Acute Code(s): R11.2 - NAUSEA WITH VOMITING, UNSPECIFIED
[2020-12-15] MEDS: POTASSIUM CHLORIDE 20 mEq IN WATER 100ML 20 MEQ/100 ML BAG IV SCH ×2 (15:27→18:44)
[2020-12-15] MEDS ORDERED: NORVASC 5 MG ONE (15:57)
[2020-12-15] MEDS: Nicoderm CQ 21 MG TOP SCH (20:53)
[2020-12-16] MEDS: Sodium Chloride 0.9% 1000 ML 1,000 ML IV SCH ×3 (01:31→22:05)
[2020-12-16] MEDS: Zofran 4 MG/2 ML VIAL IV PRN (03:50)
[2020-12-16 05:01] LABS: Absolute Neutrophil Ct (ANC) 3.22 (1.4-6.9); BASOPHIL % 0.5 % (0.0-0.4); Basophil (Absolute #) 0.03 (0-0.4); Eosinophil % 4.2 % (0.00-5.0); Eosinophil (Absolute #) 0.25 (0-0.5); Hematocrit 34.5 % (35-47); Hemoglobin 11.1 gm/dl (12.0-16.0); Lymphocyte (Absolute #) 1.98 (1.0-4.6); Lymphocytes % 32.9 % (24.0-44.0); Mean Cell Volume 108.2 fl (78-100); Mean Corpuscular Hemoglobin 34.8 pg (26-32); Mean Corpuscular Hgb Concent. 32.2 g/dl (32-36); Mean Platelet Volume 9.9 fl (7.5-11.0); Monocyte (Absolute #) 0.54 (0.0-1.3); Neutrophil % 53.4 % (36.0-66.0); Platelet Count 269 K/mm3 (150-450); Red Blood Count 3.19 M/mm3 (4.1-5.4); Red Cell Distribution Width 17.9 % (11.5-14.0)
[2020-12-16 05:23] LABS: ALBUMIN 3.9 g/dL (3.5-5.0); ALKALINE PHOSPHATASE 128 U/L (38-126); ANION GAP 8.4 MEQ/L (5-15); CHLORIDE 99 mmol/L (98-107); Calcium 9.3 mg/dL (8.4-10.2); Carbon Dioxide 31 mmol/L (22-30); Creatinine 1 0.38 mg/dL (0.52-1.04); EST GLOMERULAR FILTRATION RATE > 60.0 ML/MIN; Glucose 102 mg/dL (74-106); Potassium 3.5 mmol/L (3.5-5.1); SGOT/AST 37 U/L (14-36); SGPT/ALT 19 U/L (0-35); SODIUM 135 mmol/L (137-145); Total Protein 7.1 g/dL (6.3-8.2)
[2020-12-16 05:33] LABS: BLOOD UREA NITROGEN < 2 mg/dL (7-17)
[2020-12-16] MEDS ORDERED: NORVASC 5 MG PO ONE (10:00)
[2020-12-16] MEDS: NORVASC 5 MG PO SCH (10:26)
[2020-12-16] MEDS: Lopressor 50 MG PO SCH ×2 (10:26→21:19)
[2020-12-16] MEDS: Cozaar 50 MG PO SCH (10:26)
[2020-12-16] MEDS: hydroDIURIL 25 MG PO SCH (10:26)
[2020-12-16] MEDS: Dilaudid 4 MG Tab PO PRN ×3 (12:10→20:08)
[2020-12-16] MEDS: Nicoderm CQ 21 MG TOP SCH (21:19)
[2020-12-17] MEDS: Dilaudid 4 MG Tab PO PRN ×2 (00:22→08:18)
[2020-12-17 08:20] VITALS: BP 170/100; PULSE 81; O2SAT 94
[2020-12-17] MEDS: Lopressor 50 MG PO SCH (08:20)
[2020-12-17] MEDS: Cozaar 50 MG PO SCH (08:20)
[2020-12-17] MEDS: NORVASC 5 MG PO SCH (08:20)
[2020-12-17] MEDS: hydroDIURIL 25 MG PO SCH (08:20)
--- NOTE | 2020-12-17 10:38 | DS ---
DISCHARGE DIAGNOSES: 1) ACUTE PANCREATITIS. 2) HYPERTENSION. HOSPITAL COURSE: The patient is a 30 year old white female who had been in the hospital for pancreatitis. The patient had enzyme elevations in the 1000's when she first came in. 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 She was felt to be ready for discharge home on that Wednesday and when she was discharged home she was given pain medication Dilaudid. She is currently in a pain medicine clinic and apparently both prescriptions got canceled so she had no pain medication and ended up coming back in the hospital within 24 hours back in pain again. She was kept for another three days of gut rest. By this time the patient is eating and tolerating food pretty well and pain is under control with p.o. Dilaudid at 15 mg every four hours PRN. The patient has an appointment to see a GI specialist in [place] on 12/24/2020. She has previously seen GI doctors in [place] of Dr. Carranza and another GI specialist in [place], which neither one have offered to do an ERCP on her or given her any solid management plan. The patient is now again ready for discharge home at this time with the above plans. The patient's lipase was measured at 322 on 12/16/2020 slightly elevated from last panel with 23-300 being normal range. Her BUN and creatinine were 2 and 0.38 respectively. Glucose of 102. Her liver enzymes were essentially normal. AST slightly elevated at 37. Her alkaline phosphatase was normal. Her CBC was essentially normal. Her amylase was already down to a normal of 62 by 12/15/2020. The patient will be discharged home now as discussed above. She will have a follow up appointment to see me after she sees the GI specialist in [place] on 12/24/2020.
== END 2020-12-17 10:24 | disposition home or self-care (01) ==
LOC: ED 14:52 → MED SURG 17:12
PROVIDERS: ADMIT General Practice; ATTEND Family Medicine
DX: K85.90 Acute pancreatitis without necrosis or infection, unspecified (principal); R11.2 Nausea with vomiting, unspecified; R53.1 Weakness; Z79.899 Other long term (current) drug therapy; I10 Essential (primary) hypertension
CPT/HCPCS: 36000; 36415; 80053; 81001; 82150; 83690; 84132; 84703; 85025; 85027; 93268; 94760; 94762; 96360; 96374; 96375; 96376; 99285; G0378; 83605; J1170; J2270; J2405; J3480; A9270-GY

== ENCOUNTER 2021-01-25 14:51 | Emergency (ER) | payer OTHER ==
[2021-01-25] MEDS ORDERED: Sodium Chloride 0.9% 1000 ML 1,000 ML IV STA (15:09)
[2021-01-25] MEDS ORDERED: Zofran 4 MG/2 ML VIAL IV ONE (15:09)
[2021-01-25] MEDS ORDERED: Hydromorphone 1 mg/ml Injection IV ONE ×2 (15:09→16:40)
--- NOTE | 2021-01-25 15:10 | ERPHSYRPT ---
- History of Present Illness Time Seen by Provider: 01/25/21 15:09 Patient Subjective Stated Complaint: Pt has a history of pancreatitis and began having pain 2 days ago and is in severe pain today, pain radiates from her RUQ to her back, pt has been having N&V Triage Nursing Assessment: Pt was brought to the ER by her , tachycardic, pain with palpatation to the RUQ that radiates to her back, rates pain 9/10, N&V, last intake yesterday at lunch, last BM this AM with no abnormalaties, justin wel sounds heard in all 4 quadrants, skin n/w/d, pulses normal, cap refill normal Physician History: This is a 30-year-old white female who has a history of pancreatitis that apparently began in April 2020. Patient just saw a fraud examiner in [place] 2 days ago. 2 days ago, the patient was having abdominal pain and back pain. Yesterday, patient states that she has had vomiting which has persisted throughout today. Patient feels that she may have a recurrent episode of acute pancreatitis. Patient states that she does not know how she came about having pancreatitis when she does not consume alcohol per her report, she had no abdominal trauma and she has had a cholecystectomy but does not recall having acute cholecystitis prior to her cholecystectomy. Timing/Duration: day(s) (2) Activities at Onset: none Quality: sharpness, stabbing Abdominal Pain Onset Location: periumbilical Pain Radiation: back Severity of Pain-Max: moderate Severity of Pain-Current: moderate Modifying Factors: Improves With: vomiting Associated Symptoms: nausea, vomiting, No chest pain Allergies/Adverse Reactions: Penicillins Adverse Reaction (Mild, Verified 12/13/20 17:36) Rash pt states she is not had problems with antibitics related to pcn as an adult Home Medications: Metoprolol Tartrate 50 mg [Lopressor 50 MG] 50 mg PO BID 11/04/20 [History] Omeprazole 20 mg PO DAILY PRN PRN 11/04/20 [History] Ondansetron ODT 4 MG [Zofran Odt 4 mg] 4 mg PO Q6H PRN PRN 11/04/20 [Hist ory] Hydrocodone/Acetaminophen [Hydrocodone-Acetamin 10-325 mg^^^] 1 tab PO Q4HPRN PRN 01/25/21 [History] Lipase/Protease/Amylase [Donnie Mon 3,000 Units Capsule] 1 cap PO TID 01/25/21 [History] Hx Tetanus, Diphtheria Vaccination/Date Given: Yes Hx Influenza Vaccination/Date Given: Yes Hx Pneumococcal Vaccination/Date Given: No Travel Risk - International Travel Have you traveled outside of the country in past 3 weeks: No - Coronavirus Screening Are you exhibiting any of the following symptoms?: No Close contact with a COVID-19 positive Pt in past 14-21 Days: No - Review of Systems Constitutional: No Symptoms Eyes: No Symptoms Ears, Nose, & Throat: No Symptoms Respiratory: No Symptoms Cardiac: No Symptoms Abdominal/Gastrointestinal: Abdominal Pain, Nausea, Vomiting, No Diarrhea Genitourinary Symptoms: No Symptoms Musculoskeletal: No Symptoms Skin: No Symptoms Neurological: No Symptoms Psychological: No Symptoms Endocrine: No Symptoms Hematologic/Lymphatic: No Symptoms Immunological/Allergic: No Symptoms All Other Systems: Reviewed and Negative - Past Medical History Pertinent Past Medical History: Yes Neurological History: No Pertinent History ENT History: No Pertinent History Cardiac History: No Pertinent History Respiratory History: No Pertinent History Endocrine Medical History: No Pertinent History Musculoskeletal History: No Pertinent History GI Medical History: Pancreatitis History: No Pertinent History Psycho-Social History: No Pertinent History Female Reproductive Disorders: Endometriosis Other Medical History: Patient states, none - Past Surgical History Past Surgical History: Yes Neuro Surgical History: No Pertinent History Cardiac: No Pertinent History Respiratory: No Pertinent History Gastrointestinal: Appendectomy, Cholecystectomy Genitourinary: No Pertinent History Musculoskeletal: No Pertinent History Female Surgical History: No Pertinent History Other Surgical History: exploratory laparoscopy per Dr Hidalgo 2014- negative, wisdom teeth - Social History Smoking Status: Current every day smoker How long have you smoked: 10 YEARS Exposure to second hand smoke: Yes Alcohol Use: Socially Drug Use: none Patient Lives Alone: No Significant Family History: no pertinent family hx - Female History Hx Now: No - Nursing Vital Signs Nursing Vital Signs: Initial Vital Signs Temperature 98.4 F 01/25/21 14:55 Pulse Rate 124 H 01/25/21 14:55 Blood Pressure 147/102 01/25/21 14:55 O2 Sat by Pulse Oximetry 98 01/25/21 14:55 Pain Scale Pain Intensity 9 - Physical Exam General Appearance: no apparent distress, alert, anxiety Eye Exam: PERRL/EOMI, eyes nml inspection Ears, Nose, Throat Exam: normal ENT inspection, moist mucous membranes Neck Exam: normal inspection, non-tender, supple, full range of motion Respiratory Exam: normal breath sounds, lungs clear, airway intact, No chest tenderness, No respiratory distress Cardiovascular Exam: tachycardia Gastrointestinal/Abdomen Exam: soft, normal bowel sounds, tenderness (Periumbilical), guarding (Periumbilical) Pelvic Exam: not done Rectal Exam: not done Back Exam: normal inspection, normal range of motion, No CVA tenderness, No vertebral tenderness Extremity Exam: normal inspection, normal range of motion, pelvis stable Neurologic Exam: alert, oriented x 3, cooperative, coordinating producer II-XII nml as tested, normal mood/affect, nml cerebellar function, nml station & gait, sensation nml Skin Exam: normal color, warm, dry Lymphatic Exam: No adenopathy SpO2 Interpretation: normal SpO2: 98 O2 Delivery: Room Air - Course Nursing assessment & vital signs reviewed: Yes Ordered Tests: Active Orders 24 hr Category Date Time Status IV Insertion STAT Care 01/25/21 15:09 Active ABDOMEN AND PELVIS W/0 CONTRAS [CT] Stat Exams 01/25/21 15:10 Taken AMYLASE Stat Lab 01/25/21 15:22 Completed CBC W DIFF Stat Lab 01/25/21 15:22 Completed CMP Stat Lab 01/25/21 15:22 Completed HCG,QUALITATIVE URINE Stat Lab 01/25/21 15:22 Completed LIPASE Stat Lab 01/25/21 15:22 Completed Lactic Acid Stat Lab 01/25/21 15:15 Completed UA W/RFX UR CULTURE Stat Lab 01/25/21 15:22 Completed Medication Summary Discontinued Medications Generic Name Dose Route Start Last Admin Trade Name Rexq PRN Reason Stop Dose Admin Hydromorphone HCl 1 mg 01/25/21 15:09 01/25/21 15:45 Hydromorphone 1 Mg/Ml Injection IV 01/25/21 15:10 1 mg STAT ONE Administration Hydromorphone HCl Confirm 01/25/21 15:41 Hydromorphone 1 Mg/Ml Injection Administered 01/25/21 15:42 Dose 1 mg .ROUTE .STK-MED ONE Hydromorphone HCl 1 mg 01/25/21 16:40 Hydromorphone 1 Mg/Ml Injection IV 01/25/21 16:41 STAT ONE Sodium Chloride 1,000 mls @ 999 mls/hr 01/25/21 15:09 01/25/21 15:46 Sodium Chloride 0.9% 1000 Ml IV 01/25/21 16:09 999 mls/hr .Q1H1M STA Administration Sodium Chloride Confirm 01/25/21 15:41 Sodium Chloride 0.9% 1000 Ml Administered 01/25/21 15:42 Dose 1,000 mls @ ud .ROUTE .STK-MED ONE Levofloxacin 500 mg 01/25/21 16:41 Levofloxacin 500 Mg Tablet PO 01/25/21 16:42 STAT ONE Metronidazole 500 mg 01/25/21 16:41 Flagyl 500 Mg PO 01/25/21 16:42 STAT ONE Ondansetron HCl 4 mg 01/25/21 15:09 01/25/21 15:45 Zofran 4 Mg/2 Ml Vial IV 01/25/21 15:10 4 mg STAT ONE Administration Ondansetron HCl Confirm 01/25/21 15:40 Zofran 4 Mg/2 Ml Vial Administered 01/25/21 15:41 Dose 4 mg .ROUTE .STK-MED ONE Lab/Rad Data: Laboratory Result Diagrams 01/25/21 15:22 01/25/21 15:22 Laboratory Results 01/25/21 01/25/21 01/25/21 Range/Units 15:22 15:22 15:22 WBC 10.8 H (4.0-10.5) K/mm3 RBC 4.11 (4.1-5.4) M/mm3 Hgb 13.8 (12.0-16.0) gm/dl Hct 43.4 (35-47) % MCV 105.6 H (78-100) fl MCH 33.6 H (26-32) pg MCHC 31.8 L (32-36) g/dl RDW 17.1 H (11.5-14.0) % Plt Count 244 (150-450) K/mm3 MPV 11.2 H (7.5-11.0) fl Gran % 81.9 H (36.0-66.0) % Eos # (Auto) 0.05 (0-0.5) Absolute Lymphs (auto) 1.44 (1.0-4.6) Absolute Monos (auto) 0.44 (0.0-1.3) Lymphocytes % 13.4 L (24.0-44.0) % Monocytes % 4.1 (0.0-12.0) % Eosinophils % 0.5 (0.00-5.0) % Basophils % 0.1 (0.0-0.4) % Absolute Granulocytes 8.81 H (1.4-6.9) Basophils # 0.01 (0-0.4) Sodium 135 L (137-145) mmol/L Potassium 3.9 (3.5-5.1) mmol/L Chloride 102 (98-107) mmol/L Carbon Dioxide 24 (22-30) mmol/L Anion Gap 12.6 (5-15) MEQ/L BUN 7 (7-17) mg/dL Creatinine 0.43 L (0.52-1.04) mg/dL Estimated GFR > 60.0 ML/MIN Glucose 157 H (74-106) mg/dL Lactic Acid (0.4-2.0) Calcium 10.1 (8.4-10.2) mg/dL Total Bilirubin 0.60 (0.2-1.3) mg/dL AST 33 (14-36) U/L ALT 26 (0-35) U/L Alkaline Phosphatase 107 (38-126) U/L Serum Total Protein 8.5 H (6.3-8.2) g/dL Albumin 4.9 (3.5-5.0) g/dL Amylase 69 (30-110) U/L Lipase 84 (23-300) U/L Urine Color (YELLOW) Urine Appearance (CLEAR) Urine pH (5-6) Ur Specific [place] (1.005-1.025) Urine Protein (Negative) Urine Ketones (NEGATIVE) Urine Blood (0-5) [place]/ul Urine Nitrite (NEGATIVE) Urine Bilirubin (NEGATIVE) Urine Urobilinogen (0-1) mg/dL Ur Leukocyte Esterase (NEGATIVE) Urine WBC (Auto) (0-5) /HPF Urine RBC (Auto) (0-2) /HPF U Epithel Cells (Auto) (FEW) /HPF Urine Bacteria (Auto) (NEGATIVE) /HPF Urine Mucus (Auto) (NEGATIVE) /HPF Urine Culture Reflexed (NO) Urine Glucose (NEGATIVE) mg/dL Urine HCG, Qual NEGATIVE (Negative) 01/25/21 01/25/21 Range/Units 15:22 15:15 WBC (4.0-10.5) K/mm3 RBC (4.1-5.4) M/mm3 Hgb (12.0-16.0) gm/dl Hct (35-47) % MCV (78-100) fl MCH (26-32) pg MCHC (32-36) g/dl RDW (11.5-14.0) % Plt Count (150-450) K/mm3 MPV (7.5-11.0) fl Gran % (36.0-66.0) % Eos # (Auto) (0-0.5) Absolute Lymphs (auto) (1.0-4.6) Absolute Monos (auto) (0.0-1.3) Lymphocytes % (24.0-44.0) % Monocytes % (0.0-12.0) % Eosinophils % (0.00-5.0) % Basophils % (0.0-0.4) % Absolute Granulocytes (1.4-6.9) Basophils # (0-0.4) Sodium (137-145) mmol/L Potassium (3.5-5.1) mmol/L Chloride (98-107) mmol/L Carbon Dioxide (22-30) mmol/L Anion Gap (5-15) MEQ/L BUN (7-17) mg/dL Creatinine (0.52-1.04) mg/dL Estimated GFR ML/MIN Glucose (74-106) mg/dL Lactic Acid 2.1 H (0.4-2.0) Calcium (8.4-10.2) mg/dL Total Bilirubin (0.2-1.3) mg/dL AST (14-36) U/L ALT (0-35) U/L Alkaline Phosphatase (38-126) U/L Serum Total Protein (6.3-8.2) g/dL Albumin (3.5-5.0) g/dL Amylase (30-110) U/L Lipase (23-300) U/L Urine Color ALLYN (YELLOW) Urine Appearance SLIGHTLY CLOUDY (CLEAR) Urine pH 7.0 (5-6) Ur Specific [place] 1.017 (1.005-1.025) Urine Protein 100 (Negative) Urine Ketones NEGATIVE (NEGATIVE) Urine Blood NEGATIVE (0-5) [place]/ul Urine Nitrite NEGATIVE (NEGATIVE) Urine Bilirubin NEGATIVE (NEGATIVE) Urine Urobilinogen 4 (0-1) mg/dL Ur Leukocyte Esterase NEGATIVE (NEGATIVE) Urine WBC (Auto) 0-2 (0-5) /HPF Urine RBC (Auto) NONE (0-2) /HPF U Epithel Cells (Auto) FEW (FEW) /HPF Urine Bacteria (Auto) NONE (NEGATIVE) /HPF Urine Mucus (Auto) SLIGHT (NEGATIVE) /HPF Urine Culture Reflexed NO (NO) Urine Glucose NEGATIVE (NEGATIVE) mg/dL Urine HCG, Qual (Negative) - Progress Progress: improved, pain not gone completely, re-examined Progress Note: 01/25/21 16:42 CAT scan of the abdomen and pelvis without contrast shows mild mural thickening involving the ascending colon possibly in part due to incomplete distention, suggestion of slight adjacent stranding and question minimal colitis there is a question of trace stranding about the head and uncinate process of the pancreas pancreatitis is not excluded. Counseled pt/family regarding: lab results, diagnosis, need for follow-up, rad results - Departure Departure Disposition: Home Clinical Impression: Colitis Condition: Stable Critical Care Time: No Referrals: TAMELA KHAN [Primary Care Provider] - Additional Instructions: Take your medications as prescribed. Drink plenty of clear liquids. Avoid fatty greasy spicy foods. Call your fraud examiner on Wednesday to let them know that you were here and of your symptoms. Prescriptions: Ciprofloxacin [Cipro 500 MG] 500 mg PO BID #14 tablet Metronidazole 500 mg [Flagyl 500 MG] 500 mg PO TID #21 tablet
[2021-01-25 15:24] LABS: Absolute Neutrophil Ct (ANC) 8.81 (1.4-6.9); BASOPHIL % 0.1 % (0.0-0.4); Basophil (Absolute #) 0.01 (0-0.4); Eosinophil % 0.5 % (0.00-5.0); Eosinophil (Absolute #) 0.05 (0-0.5); Hematocrit 43.4 % (35-47); Hemoglobin 13.8 gm/dl (12.0-16.0); Lymphocyte (Absolute #) 1.44 (1.0-4.6); Lymphocytes % 13.4 % (24.0-44.0); Mean Cell Volume 105.6 fl (78-100); Mean Corpuscular Hemoglobin 33.6 pg (26-32); Mean Corpuscular Hgb Concent. 31.8 g/dl (32-36); Mean Platelet Volume 11.2 fl (7.5-11.0); Monocyte (Absolute #) 0.44 (0.0-1.3); Monocytes % 4.1 % (0.0-12.0); Neutrophil % 81.9 % (36.0-66.0); Platelet Count 244 K/mm3 (150-450); Red Blood Count 4.11 M/mm3 (4.1-5.4); Red Cell Distribution Width 17.1 % (11.5-14.0); White Blood Count 10.8 K/mm3 (4.0-10.5)
[2021-01-25 15:26] LABS: Appearance SLIGHTLY CLOUDY (CLEAR); Bilirubin NEGATIVE (NEGATIVE); Blood NEGATIVE Ery/ul (0-5); Epithelial Cells FEW /HPF (FEW); Glucose NEGATIVE (NEGATIVE); Ketones NEGATIVE (NEGATIVE); Leukocyte Esterase NEGATIVE (NEGATIVE); Mucus SLIGHT /HPF (NEGATIVE); Nitrite NEGATIVE (NEGATIVE); Protein,Urine Dip 100 (Negative); Specific Gravity 1.017 (1.005-1.025); Urobilinogen 4 mg/dL (0-1); WBC 0-2 /HPF (0-5)
[2021-01-25 15:38] LABS: ALBUMIN 4.9 g/dL (3.5-5.0); ALKALINE PHOSPHATASE 107 U/L (38-126); AMYLASE 69 U/L (30-110); ANION GAP 12.6 MEQ/L (5-15); BLOOD UREA NITROGEN 7 mg/dL (7-17); CHLORIDE 102 mmol/L (98-107); Calcium 10.1 mg/dL (8.4-10.2); Carbon Dioxide 24 mmol/L (22-30); Creatinine 1 0.43 mg/dL (0.52-1.04); EST GLOMERULAR FILTRATION RATE > 60.0 ML/MIN; Glucose 157 mg/dL (74-106); LIPASE 84 U/L (23-300); Potassium 3.9 mmol/L (3.5-5.1); SGOT/AST 33 U/L (14-36); SGPT/ALT 26 U/L (0-35); SODIUM 135 mmol/L (137-145); Total Protein 8.5 g/dL (6.3-8.2)
[2021-01-25] MEDS ORDERED: Zofran 4 MG/2 ML VIAL ONE (15:40)
[2021-01-25] MEDS ORDERED: Sodium Chloride 0.9% 1000 ML 1,000 ML ONE (15:41)
[2021-01-25] MEDS ORDERED: Hydromorphone 1 mg/ml Injection ONE ×2 (15:41→16:55)
[2021-01-25] MEDS ORDERED: Flagyl 500 MG PO ONE (16:41)
[2021-01-25] MEDS ORDERED: Levofloxacin 500 MG Tablet PO ONE (16:41)
[2021-01-25] MEDS ORDERED: Levofloxacin 500 MG Tablet ONE (16:55)
[2021-01-25] MEDS ORDERED: Flagyl 500 MG ONE (16:55)
[2021-01-25 17:09] VITALS: BP 151/91; PULSE 102; O2SAT 97
--- NOTE | 2021-01-25 18:36 | XRAY ---
Indication: Right upper quadrant pain. History pancreatitis. Multiple contiguous axial images obtained through the abdomen and pelvis without contrast. Comparison: December 09, 2020. Lung bases demonstrates stable left lower lobe calcified granuloma. No infiltrate or effusion. Heart is not enlarged. Stomach is now distended with food/fluid. Noncontrasted stomach and bowel loops appear nonobstructed. Again appendectomy and cholecystectomy. Head of pancreas demonstrates very minimal peripancreatic stranding either residual versus recurrent minimal pancreatitis. No free fluid/air. There remains fatty hepatomegaly today measuring 22 cm and tiny splenic calcified granulomas. Nonobstructing punctate calculus in each kidney not well-seen on previous contrasted exam. Remaining liver, pancreas, spleen, adrenal glands, kidneys, ureters, bladder, uterus and aorta appear unremarkable for noncontrast exam. Osseous structures intact. Impression: 1. Minimal peripancreatic head stranding either residual versus recurrent minimal pancreatitis. 2. Again incidental fatty hepatomegaly and old granulomatous disease. 3. Nonobstructing bilateral renal medical calculus. 4. Remaining CT abdomen/pelvis without contrast exam is negative. Comment: Preliminary interpretation was made by [facility]. No critical discrepancy.
== END 2021-01-25 17:26 | disposition home or self-care (01) ==
LOC: ED 14:51
DX: K52.9 Noninfective gastroenteritis and colitis, unspecified (principal); K85.90 Acute pancreatitis without necrosis or infection, unspecified; R00.2 Palpitations; R10.11 Right upper quadrant pain; R11.2 Nausea with vomiting, unspecified; Z79.899 Other long term (current) drug therapy; Z79.891 Long term (current) use of opiate analgesic
CPT/HCPCS: 36000; 36415; 74176; 80053; 81001; 82150; 83605; 83690; 84703; 85025; 96360; 96374; 96375; 96376; 99284; J1170; J2405; A9270-GY

== ENCOUNTER 2021-03-22 13:37 | Emergency (ER) | payer OTHER ==
[2021-03-22 13:50] VITALS: O2SAT 97
[2021-03-22] MEDS ORDERED: MORPHINE SULFATE 4 MG INJ IV ONE (13:59)
[2021-03-22] MEDS ORDERED: Zofran 4 MG/2 ML VIAL IV ONE (13:59)
[2021-03-22] MEDS ORDERED: Sodium Chloride 0.9% 1000 ML 1,000 ML IV STA (13:59)
[2021-03-22] MEDS ORDERED: MORPHINE SULFATE 4 MG INJ ONE (14:03)
[2021-03-22] MEDS ORDERED: Sodium Chloride 0.9% 1000 ML 1,000 ML ONE (14:03)
[2021-03-22] MEDS ORDERED: Zofran 4 MG/2 ML VIAL ONE (14:03)
[2021-03-22] MEDS ORDERED: TORAdol 30 mg Injection ONE (14:45)
[2021-03-22] MEDS ORDERED: Reglan 10 MG/2 ML ONE (14:45)
[2021-03-22 14:46] LABS: Absolute Neutrophil Ct (ANC) 6.81 (1.4-6.9); BASOPHIL % 0.2 % (0.0-0.4); Basophil (Absolute #) 0.02 (0-0.4); Eosinophil % 0.5 % (0.00-5.0); Eosinophil (Absolute #) 0.05 (0-0.5); Hematocrit 41.6 % (35-47); Hemoglobin 13.6 gm/dl (12.0-16.0); Lymphocyte (Absolute #) 1.76 (1.0-4.6); Lymphocytes % 19.3 % (24.0-44.0); Mean Cell Volume 102.7 fl (78-100); Mean Corpuscular Hemoglobin 33.6 pg (26-32); Mean Corpuscular Hgb Concent. 32.7 g/dl (32-36); Mean Platelet Volume 11.5 fl (7.5-11.0); Monocyte (Absolute #) 0.49 (0.0-1.3); Monocytes % 5.4 % (0.0-12.0); Neutrophil % 74.6 % (36.0-66.0); Platelet Count 258 K/mm3 (150-450); Red Blood Count 4.05 M/mm3 (4.1-5.4); White Blood Count 9.1 K/mm3 (4.0-10.5)
[2021-03-22] MEDS ORDERED: Reglan 10 MG/2 ML IV ONE (14:46)
[2021-03-22] MEDS ORDERED: TORAdol 30 mg Injection IV ONE (14:46)
[2021-03-22 14:52] VITALS: BP 174/103; PULSE 79
[2021-03-22 15:03] LABS: ALBUMIN 4.3 g/dL (3.5-5.0); ALKALINE PHOSPHATASE 101 U/L (38-126); ANION GAP 11.7 MEQ/L (5-15); BLOOD UREA NITROGEN 7 mg/dL (7-17); CHLORIDE 107 mmol/L (98-107); Calcium 9.5 mg/dL (8.4-10.2); Carbon Dioxide 24 mmol/L (22-30); Creatinine 1 0.54 mg/dL (0.52-1.04); EST GLOMERULAR FILTRATION RATE > 60.0 ML/MIN; Glucose 117 mg/dL (74-106); LIPASE 66 U/L (23-300); Potassium 3.3 mmol/L (3.5-5.1); SGOT/AST 28 U/L (14-36); SGPT/ALT 18 U/L (0-35); SODIUM 139 mmol/L (137-145); Total Protein 7.6 g/dL (6.3-8.2)
[2021-03-22 15:07] LABS: Appearance CLOUDY (CLEAR); Bilirubin SMALL (NEGATIVE); Blood NEGATIVE Ery/ul (0-5); Epithelial Cells FEW /HPF (FEW); Glucose NEGATIVE (NEGATIVE); Ketones TRACE (NEGATIVE); Leukocyte Esterase NEGATIVE (NEGATIVE); Mucus MANY /HPF (NEGATIVE); Nitrite NEGATIVE (NEGATIVE); Protein,Urine Dip >=500 (Negative); RBC 0-2 /HPF (0-2); Specific Gravity 1.031 (1.005-1.025); Urobilinogen 4 mg/dL (0-1)
--- NOTE | 2021-03-22 15:07 | ERPHSYRPT ---
- History of Present Illness Time Seen by Provider: 03/22/21 13:42 Historian: patient Exam Limitations: no limitations Patient Subjective Stated Complaint: Pt began getting nauseous yesterday and woke in the night vomiting, woke this morning with right flank pain and lower right abdominal pain Triage Nursing Assessment: Pt was brought to the ER by a friend, tachycardic, hypertensive, rates pain as 9/10 in RLQ and right flank, bowel sounds heard in all 4 quadrants, last intake yesterday, last BM this AM, denies any issues with bowels or urinating Physician History: 30 years old female with history of kidney stones presented in the ER with 3 days history of right flank pain moderate to severe intensity sharp nature, radiating to right groin associated with nausea and multiple episodes of nonprojectile, nonbilious vomiting with no hematemesis. She denies any difficulty urination. Pain is aggravated with movements palpation and partial relief with being still. Denies associated fever or chills. Timing/Duration: day(s) (3), gradual onset, worse Activities at Onset: rest Quality: sharpness Abdominal Pain Onset Location: flank Pain Radiation: groin Severity of Pain-Max: moderate Severity of Pain-Current: moderate Modifying Factors: Improves With: vomiting. Worsens With: movement, palpation Associated Symptoms: nausea, vomiting, No fever/chills Previous symptoms: same symptoms as today Allergies/Adverse Reactions: Penicillins Adverse Reaction (Mild, Verified 03/22/21 13:51) Rash pt states she is not had problems with antibitics related to pcn as an adult Home Medications: Metoprolol Tartrate 50 mg [Lopressor 50 MG] 100 mg PO BID 11/04/20 [History] Omeprazole 20 mg PO DAILY PRN PRN 11/04/20 [History] Ondansetron ODT 4 MG [Zofran Odt 4 mg] 4 mg PO Q6H PRN PRN 11/04/20 [Histo ry] Hydrocodone/Acetaminophen [Hydrocodone-Acetamin 10-325 mg^^^] 1 tab PO Q4HPRN PRN 01/25/21 [History] Benazepril HCl 10 mg [Lotensin 10 MG] 20 mg PO DAILY 03/22/21 [History] Buspirone HCl [Buspar] 10 mg PO DAILY 03/22/21 [History] PARoxetine HCL [Paroxetine HCl] 40 mg PO DAILY 03/22/21 [History] Hx Tetanus, Diphtheria Vaccination/Date Given: Yes Hx Influenza Vaccination/Date Given: Yes Hx Pneumococcal Vaccination/Date Given: No Travel Risk - International Travel Have you traveled outside of the country in past 3 weeks: No - Coronavirus Screening Are you exhibiting any of the following symptoms?: No Close contact with a COVID-19 positive Pt in past 14-21 Days: No - Vaccine Status Have you recieved a Covid-19 vaccination: Yes [employer]: Moderna - Vaccination Dates Date of 2cond Vaccination (if applicable): none - Review of Systems Constitutional: No Symptoms Eyes: No Symptoms Ears, Nose, & Throat: No Symptoms Respiratory: No Symptoms Cardiac: No Symptoms Abdominal/Gastrointestinal: Abdominal Pain, Nausea, Vomiting Genitourinary Symptoms: No Symptoms Musculoskeletal: No Symptoms Skin: No Symptoms Neurological: No Symptoms Psychological: Anxiety Endocrine: No Symptoms Hematologic/Lymphatic: No Symptoms Immunological/Allergic: No Symptoms - Past Medical History Pertinent Past Medical History: Yes Neurological History: No Pertinent History ENT History: No Pertinent History Cardiac History: No Pertinent History Respiratory History: No Pertinent History Endocrine Medical History: No Pertinent History Musculoskeletal History: No Pertinent History GI Medical History: Pancreatitis History: No Pertinent History Psycho-Social History: No Pertinent History Female Reproductive Disorders: Endometriosis Other Medical History: . - Past Surgical History Past Surgical History: Yes Neuro Surgical History: No Pertinent History Cardiac: No Pertinent History Respiratory: No Pertinent History Gastrointestinal: Appendectomy, Cholecystectomy Genitourinary: No Pertinent History Musculoskeletal: No Pertinent History Female Surgical History: No Pertinent History Other Surgical History: exploratory laparoscopy per Dr Hidalgo 2014- negative, wisdom teeth - Social History Smoking Status: Current every day smoker How long have you smoked: 10 YEARS Exposure to second hand smoke: Yes Alcohol Use: Socially Drug Use: none Patient Lives Alone: Yes Significant Family History: no pertinent family hx - Female History Hx Last Menstrual Period: 03/13/2021 Hx Now: (unkn) - Nursing Vital Signs Nursing Vital Signs: Initial Vital Signs Temperature 98.1 F 03/22/21 13:42 Pulse Rate 150 H 03/22/21 13:42 Blood Pressure 195/126 03/22/21 13:42 O2 Sat by Pulse Oximetry 97 03/22/21 13:42 Pain Scale Pain Intensity 7 - Physical Exam General Appearance: no apparent distress, alert, anxiety Eye Exam: eyes nml inspection Ears, Nose, Throat Exam: pharynx normal Neck Exam: normal inspection, non-tender, supple, full range of motion Respiratory Exam: normal breath sounds, lungs clear Cardiovascular Exam: normal heart sounds, tachycardia Gastrointestinal/Abdomen Exam: soft, normal bowel sounds, tenderness (Right flank), guarding Back Exam: normal inspection, CVA tenderness (Right) Extremity Exam: normal inspection, normal range of motion, pelvis stable Neurologic Exam: alert, oriented x 3, cooperative Skin Exam: normal color SpO2 Interpretation: normal SpO2: 97 O2 Delivery: Room Air Ordered Tests: Active Orders 24 hr Category Date Time Status IV Insertion STAT Care 03/22/21 13:59 Completed NPO (ED) STAT Care 03/22/21 13:59 Completed ABDOMEN AND PELVIS W/0 CONTRAS [CT] Stat Exams 03/22/21 14:00 Completed CBC W DIFF Stat Lab 03/22/21 14:48 Completed CMP Stat Lab 03/22/21 14:05 Completed HCG,QUALITATIVE URINE Stat Lab 03/22/21 14:05 Completed LIPASE Stat Lab 03/22/21 14:05 Completed UA W/RFX UR CULTURE Stat Lab 03/22/21 14:05 Completed Medication Summary Discontinued Medications Generic Name Dose Route Start Last Admin Trade Name Rexq PRN Reason Stop Dose Admin Sodium Chloride 1,000 mls @ 999 mls/hr 03/22/21 13:59 03/22/21 15:28 Sodium Chloride 0.9% 1000 Ml IV 03/22/21 14:59 Infused .Q1H1M STA Infusion Sodium Chloride Confirm 03/22/21 14:03 Sodium Chloride 0.9% 1000 Ml Administered 03/22/21 14:04 Dose 1,000 mls @ ud .ROUTE .STK-MED ONE Ketorolac Tromethamine Confirm 03/22/21 14:45 Toradol 30 Mg Injection Administered 03/22/21 14:46 Dose 30 mg .ROUTE .STK-MED ONE Ketorolac Tromethamine 30 mg 03/22/21 14:46 03/22/21 14:48 Toradol 30 Mg Injection IV 03/22/21 14:47 30 mg STAT ONE Administration Metoclopramide HCl Confirm 03/22/21 14:45 Reglan 10 Mg/2 Ml Administered 03/22/21 14:46 Dose 10 mg .ROUTE .STK-MED ONE Metoclopramide HCl 10 mg 03/22/21 14:46 03/22/21 14:48 Reglan 10 Mg/2 Ml IV 03/22/21 14:47 10 mg STAT ONE Administration Morphine Sulfate 4 mg 03/22/21 13:59 03/22/21 14:04 Morphine Sulfate 4 Mg Inj IV 03/22/21 14:00 4 mg STAT ONE Administration Morphine Sulfate Confirm 03/22/21 14:03 Morphine Sulfate 4 Mg Inj Administered 03/22/21 14:04 Dose 4 mg .ROUTE .STK-MED ONE Ondansetron HCl 4 mg 03/22/21 13:59 03/22/21 14:04 Zofran 4 Mg/2 Ml Vial IV 03/22/21 14:00 4 mg STAT ONE Administration Ondansetron HCl Confirm 03/22/21 14:03 Zofran 4 Mg/2 Ml Vial Administered 03/22/21 14:04 Dose 4 mg .ROUTE .STK-MED ONE Lab/Rad Data: Laboratory Result Diagrams 03/22/21 14:48 03/22/21 14:05 Laboratory Results 03/22/21 03/22/21 03/22/21 Range/Units 14:48 14:05 14:05 WBC 9.1 (4.0-10.5) K/mm3 RBC 4.05 L (4.1-5.4) M/mm3 Hgb 13.6 (12.0-16.0) gm/dl Hct 41.6 (35-47) % MCV 102.7 H (78-100) fl MCH 33.6 H (26-32) pg MCHC 32.7 (32-36) g/dl RDW 16.0 H (11.5-14.0) % Plt Count 258 (150-450) K/mm3 MPV 11.5 H (7.5-11.0) fl Gran % 74.6 H (36.0-66.0) % Eos # (Auto) 0.05 (0-0.5) Absolute Lymphs (auto) 1.76 (1.0-4.6) Absolute Monos (auto) 0.49 (0.0-1.3) Lymphocytes % 19.3 L (24.0-44.0) % Monocytes % 5.4 (0.0-12.0) % Eosinophils % 0.5 (0.00-5.0) % Basophils % 0.2 (0.0-0.4) % Absolute Granulocytes 6.81 (1.4-6.9) Basophils # 0.02 (0-0.4) Sodium 139 (137-145) mmol/L Potassium 3.3 L (3.5-5.1) mmol/L Chloride 107 (98-107) mmol/L Carbon Dioxide 24 (22-30) mmol/L Anion Gap 11.7 (5-15) MEQ/L BUN 7 (7-17) mg/dL Creatinine 0.54 (0.52-1.04) mg/dL Estimated GFR > 60.0 ML/MIN Glucose 117 H (74-106) mg/dL Calcium 9.5 (8.4-10.2) mg/dL Total Bilirubin 0.50 (0.2-1.3) mg/dL AST 28 (14-36) U/L ALT 18 (0-35) U/L Alkaline Phosphatase 101 (38-126) U/L Serum Total Protein 7.6 (6.3-8.2) g/dL Albumin 4.3 (3.5-5.0) g/dL Lipase 66 (23-300) U/L Urine Color (YELLOW) Urine Appearance (CLEAR) Urine pH (5-6) Ur Specific [place] (1.005-1.025) Urine Protein (Negative) Urine Ketones (NEGATIVE) Urine Blood (0-5) [place]/ul Urine Nitrite (NEGATIVE) Urine Bilirubin (NEGATIVE) Urine Urobilinogen (0-1) mg/dL Ur Leukocyte Esterase (NEGATIVE) Urine WBC (Auto) (0-5) /HPF Urine RBC (Auto) (0-2) /HPF U Hyaline Cast (Auto) (0-2) /LPF U Epithel Cells (Auto) (FEW) /HPF Urine Bacteria (Auto) (NEGATIVE) /HPF Urine Mucus (Auto) (NEGATIVE) /HPF Urine Culture Reflexed (NO) Urine Glucose (NEGATIVE) mg/dL Urine HCG, Qual NEGATIVE (Negative) 03/22/21 Range/Units 14:05 WBC (4.0-10.5) K/mm3 RBC (4.1-5.4) M/mm3 Hgb (12.0-16.0) gm/dl Hct (35-47) % MCV (78-100) fl MCH (26-32) pg MCHC (32-36) g/dl RDW (11.5-14.0) % Plt Count (150-450) K/mm3 MPV (7.5-11.0) fl Gran % (36.0-66.0) % Eos # (Auto) (0-0.5) Absolute Lymphs (auto) (1.0-4.6) Absolute Monos (auto) (0.0-1.3) Lymphocytes % (24.0-44.0) % Monocytes % (0.0-12.0) % Eosinophils % (0.00-5.0) % Basophils % (0.0-0.4) % Absolute Granulocytes (1.4-6.9) Basophils # (0-0.4) Sodium (137-145) mmol/L Potassium (3.5-5.1) mmol/L Chloride (98-107) mmol/L Carbon Dioxide (22-30) mmol/L Anion Gap (5-15) MEQ/L BUN (7-17) mg/dL Creatinine (0.52-1.04) mg/dL Estimated GFR ML/MIN Glucose (74-106) mg/dL Calcium (8.4-10.2) mg/dL Total Bilirubin (0.2-1.3) mg/dL AST (14-36) U/L ALT (0-35) U/L Alkaline Phosphatase (38-126) U/L Serum Total Protein (6.3-8.2) g/dL Albumin (3.5-5.0) g/dL Lipase (23-300) U/L Urine Color [place] (YELLOW) Urine Appearance CLOUDY (CLEAR) Urine pH 5.0 (5-6) Ur Specific [place] 1.031 (1.005-1.025) Urine Protein >=500 (Negative) Urine Ketones TRACE (NEGATIVE) Urine Blood NEGATIVE (0-5) [place]/ul Urine Nitrite NEGATIVE (NEGATIVE) Urine Bilirubin SMALL (NEGATIVE) Urine Urobilinogen 4 (0-1) mg/dL Ur Leukocyte Esterase NEGATIVE (NEGATIVE) Urine WBC (Auto) 3-5 (0-5) /HPF Urine RBC (Auto) 0-2 (0-2) /HPF U Hyaline Cast (Auto) 6-10 (0-2) /LPF U Epithel Cells (Auto) FEW (FEW) /HPF Urine Bacteria (Auto) NONE (NEGATIVE) /HPF Urine Mucus (Auto) MANY (NEGATIVE) /HPF Urine Culture Reflexed NO (NO) Urine Glucose NEGATIVE (NEGATIVE) mg/dL Urine HCG, Qual (Negative) - Progress Progress: improved, pain not gone completely, re-examined Progress Note: 03/22/21 16:00 Patient is evaluated for right flank pain, given symptomatic treatment for pain, on reevaluation feeling much better. No peritoneal signs. She does have history of appendectomy and cholecystectomy. Normal work-up including CT abdomen pelvis. She does have nonobstructive kidney stones. Do not know the exact cause of her pain but have ruled out all the major emergencies, recommended supportive care. Counseled pt/family regarding: lab results, diagnosis, need for follow-up, rad results - Departure Departure Disposition: Home Clinical Impression: Acute right flank pain Condition: Stable Critical Care Time: No Referrals: TAMELA KHAN [Primary Care Provider] - (23 days for reevaluation) Instructions: Acute Abdomen (Belly Pain), Adult (DC) Additional Instructions: drink plenty of fluids, take tylenol/ibuprofen as needed. Follow up with PCP for re evaluation. Return to ER for any worsening pain , vomiting or if develop fever /chills. Prescriptions: Ibuprofen 600 mg PO Q6HPRN PRN 10 Days #20 tablet PRN Reason: Pain Ondansetron ODT 4 MG [Zofran Odt 4 mg] 4 mg PO Q6H PRN PRN #10 tab.rapdis PRN Reason: Vomiting
--- NOTE | 2021-03-22 20:50 | XRAY ---
Indication: Right flank/abdomen pain. Nausea and vomiting. History kidney stones. Multiple contiguous axial images obtained through the abdomen and pelvis without contrast. Comparison: January 25, 2021. Lung bases demonstrates new mild posterior dependent atelectasis versus infiltrate. No effusion. Heart is not enlarged. Noncontrasted stomach and bowel loops nonobstructed. Stable small descending duodenal diverticulum. Again appendectomy and cholecystectomy. No free fluid/air. Stable fatty hepatomegaly, splenic calcified granulomas, and nonobstructing bilateral renal micro-calculi. Remaining liver, pancreas, spleen, adrenal glands, kidneys, ureters, bladder, uterus, and aorta appear unremarkable for noncontrast exam. Osseous structures intact. Impression: 1. New bibasilar dependent atelectasis versus infiltrates. 2. Stable duodenal diverticulum, fatty hepatomegaly, and nonobstructing bilateral renal micro-calculi. Comment: Preliminary interpretation was made by [facility]. No critical discrepancy.
== END 2021-03-22 16:12 | disposition home or self-care (01) ==
LOC: ED 13:37
DX: R10.9 Unspecified abdominal pain (principal)
CPT/HCPCS: 36000; 36415; 74176; 80053; 81001; 83690; 84703; 85025; 96360; 96374; 96375; 99284; J1885; J2270; J2405

== ENCOUNTER 2021-05-17 17:05 | Observation (INO) | payer OTHER ==
[2021-05-17] MEDS ORDERED: Hydromorphone 1 mg/ml Injection IV ONE ×2 (17:32→21:14)
[2021-05-17] MEDS ORDERED: Sodium Chloride 0.9% 1000 ML 1,000 ML IV STA ×2 (17:32→19:26)
[2021-05-17] MEDS ORDERED: Zofran 4 MG/2 ML VIAL IV ONE (17:32)
--- NOTE | 2021-05-17 17:45 | ERPHSYRPT ---
- History of Present Illness Time Seen by Provider: 05/17/21 17:25 Historian: patient, family Exam Limitations: no limitations Patient Subjective Stated Complaint: Pt has been vomiting for the past 3 days and has pain in the left flank that radiates to her left quadrants Triage Nursing Assessment: Pt brought to the ER by her , hypertensive, rates left back pain and left abdominal pain as 9/10, pulses normal, skin n/w/d, N&V, last intake last night Physician History: This is a 30-year-old white female has a history of recurrent pancreatitis, hypertension and gastroesophageal reflux disease as well as endometriosis. She presents with 2-day history of left flank pain which radiates around to her left upper quadrant. 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 Patient has had some nausea vomiting issues. She states that she cannot hold any fluids down. Timing/Duration: day(s) (2) Activities at Onset: none Quality: sharpness, stabbing Abdominal Pain Onset Location: flank (Left flank) Pain Radiation: LUQ Severity of Pain-Max: moderate Severity of Pain-Current: moderate Modifying Factors: Improves With: vomiting Associated Symptoms: nausea, vomiting Previous symptoms: same symptoms as today Allergies/Adverse Reactions: Penicillins Adverse Reaction (Mild, Verified 05/17/21 17:22) Rash pt states she is not had problems with antibitics related to pcn as an adult Home Medications: Metoprolol Tartrate 50 mg [Lopressor 50 MG] 100 mg PO BID 11/04/20 [History] Omeprazole 20 mg PO DAILY PRN PRN 11/04/20 [History] Hydrocodone/Acetaminophen [Hydrocodone-Acetamin 10-325 mg^^^] 1 tab PO Q4HPRN PRN 01/25/21 [History] Benazepril HCl 10 mg [Lotensin 10 MG] 20 mg PO DAILY 03/22/21 [History] Buspirone HCl [Buspar] 10 mg PO DAILY 03/22/21 [History] PARoxetine HCL [Paroxetine HCl] 40 mg PO DAILY 03/22/21 [History] Hx Tetanus, Diphtheria Vaccination/Date Given: Yes Hx Influenza Vaccination/Date Given: Yes Hx Pneumococcal Vaccination/Date Given: No Travel Risk - International Travel Have you traveled outside of the country in past 3 weeks: No - Coronavirus Screening Are you exhibiting any of the following symptoms?: No Close contact with a COVID-19 positive Pt in past 14-21 Days: No - Vaccine Status Have you recieved a Covid-19 vaccination: Yes 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: [employer] - Vaccination Dates Date of 2cond Vaccination (if applicable): 05/28/2021 - Review of Systems Constitutional: No Symptoms Eyes: No Symptoms Ears, Nose, & Throat: No Symptoms Respiratory: No Symptoms Cardiac: No Symptoms Abdominal/Gastrointestinal: Abdominal Pain (Left upper quadrant), Nausea, Vomiting Genitourinary Symptoms: Flank Pain (Left) Musculoskeletal: No Symptoms Skin: No Symptoms Neurological: No Symptoms Psychological: No Symptoms Endocrine: No Symptoms Hematologic/Lymphatic: No Symptoms Immunological/Allergic: No Symptoms All Other Systems: Reviewed and Negative - Past Medical History Pertinent Past Medical History: Yes Neurological History: No Pertinent History ENT History: No Pertinent History Cardiac History: No Pertinent History Respiratory History: No Pertinent History Endocrine Medical History: No Pertinent History Musculoskeletal History: No Pertinent History GI Medical History: Pancreatitis History: No Pertinent History Psycho-Social History: No Pertinent History Female Reproductive Disorders: Endometriosis Other Medical History: . - Past Surgical History Past Surgical History: Yes Neuro Surgical History: No Pertinent History Cardiac: No Pertinent History Respiratory: No Pertinent History Gastrointestinal: Appendectomy, Cholecystectomy Genitourinary: No Pertinent History Musculoskeletal: No Pertinent History Female Surgical History: No Pertinent History Other Surgical History: exploratory laparoscopy per Dr Hidalgo 2014- negative, wisdom teeth - Social History Smoking Status: Current every day smoker How long have you smoked: 10 YEARS Exposure to second hand smoke: Yes Alcohol Use: Socially Drug Use: none Patient Lives Alone: No Significant Family History: no pertinent family hx - Female History Hx Now: No (unknown) - Nursing Vital Signs Nursing Vital Signs: Initial Vital Signs Temperature 98.4 F 05/17/21 17:15 Pulse Rate 88 05/17/21 17:15 Blood Pressure 156/121 05/17/21 17:15 O2 Sat by Pulse Oximetry 100 05/17/21 17:15 Pain Scale Pain Intensity 5 - Physical Exam General Appearance: no apparent distress, alert, anxiety Eye Exam: PERRL/EOMI, eyes nml inspection Ears, Nose, Throat Exam: normal ENT inspection, moist mucous membranes Neck Exam: normal inspection, non-tender, supple, full range of motion Respiratory Exam: normal breath sounds, lungs clear, airway intact, No chest ten derness, No respiratory distress Cardiovascular Exam: regular rate/rhythm, normal heart sounds, normal peripheral pulses Gastrointestinal/Abdomen Exam: soft, normal bowel sounds, No tenderness Pelvic Exam: not done Rectal Exam: not done Back Exam: normal inspection, normal range of motion, CVA tenderness, No vertebral tenderness (Left) Extremity Exam: normal inspection Neurologic Exam: alert, oriented x 3, cooperative, 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, normal mood/affect, nml cerebellar function, nml station & gait, sensation nml Skin Exam: normal color, warm, dry Lymphatic Exam: No adenopathy SpO2 Interpretation: normal SpO2: 100 O2 Delivery: Room Air - Course Nursing assessment & vital signs reviewed: Yes Ordered Tests: Active Orders 24 hr Category Date Time Status Clean Catch Urine Specimen STAT Care 05/17/21 17:32 Active IV Insertion STAT Care 05/17/21 17:32 Active ABDOMEN AND PELVIS W/0 CONTRAS [CT] Stat Exams 05/17/21 18:32 Taken AMYLASE Stat Lab 05/17/21 17:58 Completed CBC W DIFF Stat Lab 05/17/21 17:58 Completed CMP Stat Lab 05/17/21 17:58 Completed HCG,QUALITATIVE URINE Stat Lab 05/17/21 17:42 Completed LIPASE Stat Lab 05/17/21 17:58 Completed Lactic Acid Stat Lab 05/17/21 17:32 Completed Lactic Acid Stat Lab 05/17/21 20:01 Received UA W/RFX UR CULTURE Stat Lab 05/17/21 17:35 Completed Urine Triage Profile Stat Lab 05/17/21 17:35 Completed Transfer Order Routine Transfer 05/17/21 Ordered Medication Summary Generic Name Dose Route Start Last Admin Trade Name Freq PRN Reason Stop Dose Admin Sodium Chloride 1,000 mls @ 999 mls/hr 05/17/21 19:26 05/17/21 20:15 Sodium Chloride 0.9% 1000 Ml IV 05/17/21 20:26 999 mls/hr .Q1H1M STA Administration Discontinued Medications Generic Name Dose Route Start Last Admin Trade Name Freq PRN Reason Stop Dose Admin Hydromorphone HCl 1 mg 05/17/21 17:32 05/17/21 18:30 Hydromorphone 1 Mg/Ml Injection IV 05/17/21 17:33 1 mg STAT ONE Administration Hydromorphone HCl Confirm 05/17/21 18:28 Hydromorphone 1 Mg/Ml Injection Administered 05/17/21 18:29 Dose 1 mg .ROUTE .STK-MED ONE Sodium Chloride 1,000 mls @ 999 mls/hr 05/17/21 17:32 05/17/21 20:02 Sodium Chloride 0.9% 1000 Ml IV 05/17/21 18:32 Infused .Q1H1M STA Infusion Sodium Chloride Confirm 05/17/21 18:28 Sodium Chloride 0.9% 1000 Ml Administered 05/17/21 18:29 Dose 1,000 mls @ ud .ROUTE .STK-MED ONE Ondansetron HCl 4 mg 05/17/21 17:32 05/17/21 18:29 Zofran 4 Mg/2 Ml Vial IV 05/17/21 17:33 4 mg STAT ONE Administration Ondansetron HCl Confirm 05/17/21 18:28 Zofran 4 Mg/2 Ml Vial Administered 05/17/21 18:29 Dose 4 mg .ROUTE .STK-MED ONE Lab/Rad Data: Laboratory Result Diagrams 05/17/21 17:58 05/17/21 17:58 Laboratory Results 05/17/21 05/17/21 05/17/21 Range/Units 17:58 17:58 17:42 WBC 18.7 H (4.0-10.5) K/mm3 RBC 4.35 (4.1-5.4) M/mm3 Hgb 14.3 (12.0-16.0) gm/dl Hct 43.8 (35-47) % MCV 100.7 H (78-100) fl MCH 32.9 H (26-32) pg MCHC 32.6 (32-36) g/dl RDW 14.4 H (11.5-14.0) % Plt Count 343 (150-450) K/mm3 MPV 11.0 (7.5-11.0) fl Gran % 83.2 H (36.0-66.0) % Eos # (Auto) 0.13 (0-0.5) Absolute Lymphs (auto) 2.08 (1.0-4.6) Absolute Monos (auto) 0.89 (0.0-1.3) Lymphocytes % 11.1 L (24.0-44.0) % Monocytes % 4.8 (0.0-12.0) % Eosinophils % 0.7 (0.00-5.0) % Basophils % 0.2 (0.0-0.4) % Absolute Granulocytes 15.52 H (1.4-6.9) Basophils # 0.04 (0-0.4) Sodium 139 (137-145) mmol/L Potassium 3.6 (3.5-5.1) mmol/L Chloride 105 (98-107) mmol/L Carbon Dioxide 21 L (22-30) mmol/L Anion Gap 16.3 H (5-15) MEQ/L BUN 7 (7-17) mg/dL Creatinine 0.56 (0.52-1.04) mg/dL Estimated GFR > 60.0 ML/MIN Glucose 99 (74-106) mg/dL Lactic Acid (0.4-2.0) Calcium 9.2 (8.4-10.2) mg/dL Total Bilirubin 0.70 (0.2-1.3) mg/dL AST 26 (14-36) U/L ALT 14 (0-35) U/L Alkaline Phosphatase 109 (38-126) U/L Serum Total Protein 8.2 (6.3-8.2) g/dL Albumin 4.5 (3.5-5.0) g/dL Amylase 120 H (30-110) U/L Lipase 342 H (23-300) U/L Urine Color (YELLOW) Urine Appearance (CLEAR) Urine pH (5-6) Ur Specific Fa[place]ner (1.005-1.025) Urine Protein (Negative) Urine Ketones (NEGATIVE) Urine Blood (0-5) [place]/ul Urine Nitrite (NEGATIVE) Urine Bilirubin (NEGATIVE) Urine Urobilinogen (0-1) mg/dL Ur Leukocyte Esterase (NEGATIVE) Urine WBC (Auto) (0-5) /HPF Urine RBC (Auto) (0-2) /HPF U Hyaline Cast (Auto) (0-2) /LPF U Epithel Cells (Auto) (FEW) /HPF Urine Bacteria (Auto) (NEGATIVE) /HPF Urine Mucus (Auto) (NEGATIVE) /HPF Urine Culture Reflexed (NO) Urine Glucose (NEGATIVE) mg/dL Urine HCG, Qual NEGATIVE (Negative) Urine Opiates Level (NEGATIVE) Ur Methadone (NEGATIVE) Urine Barbiturates (NEGATIVE) Ur Phencyclidine (PCP) (NEGATIVE) Urine Amphetamine (NEGATIVE) U Benzodiazepine Level (NEGATIVE) Urine Cocaine (NEGATIVE) Urine Marijuana (THC) (NEGATIVE) 05/17/21 05/17/21 05/17/21 Range/Units 17:35 17:35 17:32 WBC (4.0-10.5) K/mm3 RBC (4.1-5.4) M/mm3 Hgb (12.0-16.0) gm/dl Hct (35-47) % MCV (78-100) fl MCH (26-32) pg MCHC (32-36) g/dl RDW (11.5-14.0) % Plt Count (150-450) K/mm3 MPV (7.5-11.0) fl Gran % (36.0-66.0) % Eos # (Auto) (0-0.5) Absolute Lymphs (auto) (1.0-4.6) Absolute Monos (auto) (0.0-1.3) Lymphocytes % (24.0-44.0) % Monocytes % (0.0-12.0) % Eosinophils % (0.00-5.0) % Basophils % (0.0-0.4) % Absolute Granulocytes (1.4-6.9) Basophils # (0-0.4) Sodium (137-145) mmol/L Potassium (3.5-5.1) mmol/L Chloride (98-107) mmol/L Carbon Dioxide (22-30) mmol/L Anion Gap (5-15) MEQ/L BUN (7-17) mg/dL Creatinine (0.52-1.04) mg/dL Estimated GFR ML/MIN Glucose (74-106) mg/dL Lactic Acid 2.1 H (0.4-2.0) Calcium (8.4-10.2) mg/dL Total Bilirubin (0.2-1.3) mg/dL AST (14-36) U/L ALT (0-35) U/L Alkaline Phosphatase (38-126) U/L Serum Total Protein (6.3-8.2) g/dL Albumin (3.5-5.0) g/dL Amylase (30-110) U/L Lipase (23-300) U/L Urine Color ALLYN (YELLOW) Urine Appearance SLIGHTLY CLOUDY (CLEAR) Urine pH 5.0 (5-6) Ur Specific [place] 1.031 (1.005-1.025) Urine Protein 100 (Negative) Urine Ketones NEGATIVE (NEGATIVE) Urine Blood NEGATIVE (0-5) Bo[place]/ul Urine Nitrite NEGATIVE (NEGATIVE) Urine Bilirubin SMALL (NEGATIVE) Urine Urobilinogen 2 (0-1) mg/dL Ur Leukocyte Esterase NEGATIVE (NEGATIVE) Urine WBC (Auto) 3-5 (0-5) /HPF Urine RBC (Auto) 0-2 (0-2) /HPF U Hyaline Cast (Auto) 6-10 (0-2) /LPF U Epithel Cells (Auto) RARE (FEW) /HPF Urine Bacteria (Auto) NONE (NEGATIVE) /HPF Urine Mucus (Auto) SLIGHT (NEGATIVE) /HPF Urine Culture Reflexed NO (NO) Urine Glucose NEGATIVE (NEGATIVE) mg/dL Urine HCG, Qual (Negative) Urine Opiates Level NEGATIVE (NEGATIVE) Ur Methadone NEGATIVE (NEGATIVE) Urine Barbiturates NEGATIVE (NEGATIVE) Ur Phencyclidine (PCP) NEGATIVE (NEGATIVE) Urine Amphetamine NEGATIVE (NEGATIVE) U Benzodiazepine Level NEGATIVE (NEGATIVE) Urine Cocaine NEGATIVE (NEGATIVE) Urine Marijuana (THC) NEGATIVE (NEGATIVE) - Progress Progress: improved, pain not gone completely, re-examined Progress Note: 05/17/21 20:04 CAT scan of the abdomen and pelvis without contrast shows. Pancreatic edema with minimal line localized fluid suggesting pancreatitis 05/17/21 20:10 Medical decision making: This is a 30-year-old female has known history of recurrent pancreatitis. She has another episode of acute pancreatitis. I spoke with Dr. Randle and reviewed the patient history, physical findings, laboratory data and results of the CAT scan of the abdomen and pelvis. He agrees to place the patient in observation. We will provide aggressive IV hydration and repeat laboratory data in the morning. We will provide her with antiemetics and intravenous narcotics for pain control. Counseled pt/family regarding: lab results, diagnosis, need for follow-up, rad results - Departure Departure Disposition: Home Clinical Impression: Acute pancreatitis, Vomiting, Leukocytosis Condition: Stable Critical Care Time: No Referrals: TAMELA KHAN [Primary Care Provider] -
[2021-05-17 17:58] LABS: Amphetamine,Urine NEGATIVE (NEGATIVE); Barbiturate,Urine NEGATIVE (NEGATIVE); Benzodiazepine,Urine NEGATIVE (NEGATIVE); Cocaine,Urine NEGATIVE (NEGATIVE); Methadone,Urine NEGATIVE (NEGATIVE); Opiate,Urine NEGATIVE (NEGATIVE); PCP,Urine NEGATIVE (NEGATIVE); THC,Urine NEGATIVE (NEGATIVE)
[2021-05-17 17:59] LABS: Appearance SLIGHTLY CLOUDY (CLEAR); Bilirubin SMALL (NEGATIVE); Blood NEGATIVE Ery/ul (0-5); Epithelial Cells RARE /HPF (FEW); Glucose NEGATIVE (NEGATIVE); Ketones NEGATIVE (NEGATIVE); Leukocyte Esterase NEGATIVE (NEGATIVE); Mucus SLIGHT /HPF (NEGATIVE); Nitrite NEGATIVE (NEGATIVE); Protein,Urine Dip 100 (Negative); RBC 0-2 /HPF (0-2); Specific Gravity 1.031 (1.005-1.025); Urobilinogen 2 mg/dL (0-1)
[2021-05-17 18:01] LABS: Absolute Neutrophil Ct (ANC) 15.52 (1.4-6.9); BASOPHIL % 0.2 % (0.0-0.4); Basophil (Absolute #) 0.04 (0-0.4); Eosinophil % 0.7 % (0.00-5.0); Eosinophil (Absolute #) 0.13 (0-0.5); Hematocrit 43.8 % (35-47); Hemoglobin 14.3 gm/dl (12.0-16.0); Lymphocyte (Absolute #) 2.08 (1.0-4.6); Lymphocytes % 11.1 % (24.0-44.0); Mean Cell Volume 100.7 fl (78-100); Mean Corpuscular Hemoglobin 32.9 pg (26-32); Mean Corpuscular Hgb Concent. 32.6 g/dl (32-36); Monocyte (Absolute #) 0.89 (0.0-1.3); Monocytes % 4.8 % (0.0-12.0); Neutrophil % 83.2 % (36.0-66.0); Platelet Count 343 K/mm3 (150-450); Red Blood Count 4.35 M/mm3 (4.1-5.4); Red Cell Distribution Width 14.4 % (11.5-14.0); White Blood Count 18.7 K/mm3 (4.0-10.5)
[2021-05-17 18:12] LABS: ALBUMIN 4.5 g/dL (3.5-5.0); ALKALINE PHOSPHATASE 109 U/L (38-126); AMYLASE 120 U/L (30-110); ANION GAP 16.3 MEQ/L (5-15); BLOOD UREA NITROGEN 7 mg/dL (7-17); CHLORIDE 105 mmol/L (98-107); Calcium 9.2 mg/dL (8.4-10.2); Carbon Dioxide 21 mmol/L (22-30); Creatinine 1 0.56 mg/dL (0.52-1.04); EST GLOMERULAR FILTRATION RATE > 60.0 ML/MIN; Glucose 99 mg/dL (74-106); LIPASE 342 U/L (23-300); Potassium 3.6 mmol/L (3.5-5.1); SGOT/AST 26 U/L (14-36); SGPT/ALT 14 U/L (0-35); SODIUM 139 mmol/L (137-145); Total Protein 8.2 g/dL (6.3-8.2)
[2021-05-17] MEDS ORDERED: Zofran 4 MG/2 ML VIAL ONE (18:28)
[2021-05-17] MEDS ORDERED: Hydromorphone 1 mg/ml Injection ONE ×2 (18:28→21:15)
[2021-05-17] MEDS ORDERED: Sodium Chloride 0.9% 1000 ML 1,000 ML ONE ×2 (18:28→20:14)
--- NOTE | 2021-05-17 20:34 | XRAY ---
Indication: Left abdomen/flank pain 3 days. Nausea and vomiting. Multiple contiguous axial images obtained through the abdomen and pelvis without contrast. Comparison: March 22, 2021. Lung bases demonstrates a few tiny left lower lobe calcified granulomas. No infiltrate or effusion. Heart not enlarged. Noncontrasted stomach and bowel loops remain nonobstructed. Stable descending duodenal diverticulum, 21.6 cm fatty hepatomegaly, splenic calcified granulomas, nonobstructing bilateral renal micro-calculi, appendectomy, and cholecystectomy. Pancreas demonstrates new edema with peripancreatic stranding favoring acute pancreatitis. No free fluid/air. Remaining liver, spleen, adrenal glands, kidneys, ureters, bladder, uterus, and aorta are unremarkable for noncontrast exam. Osseous structures intact. Impression: 1. New CT findings favor acute pancreatitis. 2. Again incidental duodenal diverticulum, fatty hepatomegaly, and nonobstructing bilateral renal micro-calculi. Comment: Preliminary interpretation was made by [facility]. No critical discrepancy.
[2021-05-17] MEDS ORDERED: PROTONIX 40 MG IV IV SCH (22:15)
[2021-05-17] MEDS ORDERED: Hydromorphone 1 mg/ml Injection IV PRN (22:15)
[2021-05-17] MEDS ORDERED: TYLENOL 325 MG PO PRN (22:15)
[2021-05-17] MEDS: Sodium Chloride 0.9% 1000 ML 1,000 ML IV SCH (22:23)
[2021-05-17] MEDS: Zofran 4 MG/2 ML VIAL IV PRN (22:25)
[2021-05-17] MEDS: Lopressor 50 MG PO SCH (23:10)
[2021-05-17] MEDS: BUSPAR 5 MG PO SCH (23:10)
[2021-05-17] MEDS: Nicoderm CQ 21 MG TOP SCH (23:10)
[2021-05-18] MEDS: Hydromorphone 1 mg/ml Injection IV PRN ×8 (01:18→22:52)
[2021-05-18] MEDS: Sodium Chloride 0.9% 1000 ML 1,000 ML IV SCH ×3 (03:53→16:41)
[2021-05-18] MEDS: Zofran 4 MG/2 ML VIAL IV PRN ×4 (04:02→22:52)
[2021-05-18 06:29] LABS: BASOPHIL % 0.2 % (0.0-0.4); Basophil (Absolute #) 0.03 (0-0.4); Eosinophil % 1.3 % (0.00-5.0); Eosinophil (Absolute #) 0.19 (0-0.5); Hematocrit 37.7 % (35-47); Lymphocyte (Absolute #) 2.53 (1.0-4.6); Lymphocytes % 17.7 % (24.0-44.0); Mean Cell Volume 103.9 fl (78-100); Mean Corpuscular Hemoglobin 33.1 pg (26-32); Mean Corpuscular Hgb Concent. 31.8 g/dl (32-36); Monocyte (Absolute #) 1.03 (0.0-1.3); Monocytes % 7.2 % (0.0-12.0); Neutrophil % 73.6 % (36.0-66.0); Platelet Count 238 K/mm3 (150-450); Red Blood Count 3.63 M/mm3 (4.1-5.4); Red Cell Distribution Width 14.2 % (11.5-14.0); White Blood Count 14.3 K/mm3 (4.0-10.5)
[2021-05-18 06:49] LABS: AMYLASE 80 U/L (30-110); LIPASE 166 U/L (23-300)
[2021-05-18 06:51] LABS: ALBUMIN 3.3 g/dL (3.5-5.0); ALKALINE PHOSPHATASE 95 U/L (38-126); ANION GAP 9.9 MEQ/L (5-15); BLOOD UREA NITROGEN 6 mg/dL (7-17); CHLORIDE 108 mmol/L (98-107); Calcium 7.3 mg/dL (8.4-10.2); Carbon Dioxide 20 mmol/L (22-30); Creatinine 1 0.51 mg/dL (0.52-1.04); EST GLOMERULAR FILTRATION RATE > 60.0 ML/MIN; Glucose 89 mg/dL (74-106); Potassium 3.3 mmol/L (3.5-5.1); SGOT/AST 21 U/L (14-36); SGPT/ALT 10 U/L (0-35); SODIUM 134 mmol/L (137-145); Total Protein 6.2 g/dL (6.3-8.2)
[2021-05-18] MEDS ORDERED: NON-FORMULARY ITEM (Omeprazole [Omeprazole] 20 MG) PO PRN (09:14)
[2021-05-18] MEDS: Protonix 40MG Tablet PO SCH (10:03)
[2021-05-18] MEDS: Lopressor 50 MG PO SCH ×2 (10:03→19:44)
[2021-05-18] MEDS: Lotensin 10 MG PO SCH (10:03)
[2021-05-18] MEDS: BUSPAR 5 MG PO SCH ×2 (10:03→19:44)
[2021-05-18] MEDS: Nicoderm CQ 21 MG TOP SCH (19:44)
[2021-05-19] MEDS: Sodium Chloride 0.9% 1000 ML 1,000 ML IV SCH ×2 (00:01→04:40)
[2021-05-19] MEDS: Hydromorphone 1 mg/ml Injection IV PRN ×3 (01:55→08:01)
[2021-05-19] MEDS: Zofran 4 MG/2 ML VIAL IV PRN (04:43)
[2021-05-19 05:33] LABS: Hematocrit 31.2 % (35-47); Hemoglobin 9.5 gm/dl (12.0-16.0); Mean Cell Volume 106.5 fl (78-100); Mean Corpuscular Hemoglobin 32.4 pg (26-32); Mean Corpuscular Hgb Concent. 30.4 g/dl (32-36); Platelet Count 168 K/mm3 (150-450); Red Blood Count 2.93 M/mm3 (4.1-5.4); Red Cell Distribution Width 14.1 % (11.5-14.0); White Blood Count 8.1 K/mm3 (4.0-10.5)
[2021-05-19 06:25] LABS: ALBUMIN 2.9 g/dL (3.5-5.0); ALKALINE PHOSPHATASE 88 U/L (38-126); ANION GAP 8.9 MEQ/L (5-15); BLOOD UREA NITROGEN 4 mg/dL (7-17); CHLORIDE 108 mmol/L (98-107); Carbon Dioxide 21 mmol/L (22-30); Creatinine 1 0.42 mg/dL (0.52-1.04); EST GLOMERULAR FILTRATION RATE > 60.0 ML/MIN; Glucose 80 mg/dL (74-106); LIPASE 101 U/L (23-300); Potassium 3.2 mmol/L (3.5-5.1); SGOT/AST 17 U/L (14-36); SGPT/ALT 7 U/L (0-35); SODIUM 134 mmol/L (137-145); Total Protein 5.4 g/dL (6.3-8.2)
[2021-05-19] MEDS ORDERED: Sodium Chloride 0.9% W/ 20 mEq KCl/LITER 1,000 ML IV SCH (08:15)
[2021-05-19] MEDS ORDERED: BACTRIM DS TABLET PO SCH (10:00)
[2021-05-19] MEDS ORDERED: Ativan 2 MG/1 ML VIAL IV ONE (10:10)
[2021-05-19] MEDS: BUSPAR 5 MG PO SCH (11:40)
[2021-05-19] MEDS: Lopressor 50 MG PO SCH (11:40)
[2021-05-19] MEDS: Protonix 40MG Tablet PO SCH (11:40)
[2021-05-19] MEDS: Lotensin 10 MG PO SCH (11:40)
[2021-05-19] MEDS: HYDROCODONE-ACETAMIN 10-325 MG PO PRN ×2 (11:47→16:17)
--- NOTE | 2021-05-19 12:23 | XRAY ---
Indication: Recurrent pancreatitis. Cholecystectomy 15 years ago. Conventional MRCP was performed. Comparison: None Gallbladder surgically absent. Biliary tree including common bile duct normal in course and caliber without focal stricture, obstruction, or filling defect. Pancreatic duct unremarkable. Pancreas slightly prominent and edematous which would favor clinically reported recurrent pancreatitis. Tiny fluid around the pancreas, liver, spleen, and along both colic gutters. Distal pancreatic body demonstrates a 9 mm cyst not communicating with the pancreatic duct. Interposed between the spleen and stomach is a homogeneous cystic mass measuring at least 8.2 x 3.7 x 3.6 cm without mural nodule or septations. There is slight mass effect on the stomach. Partial differential includes pancreatic pseudocyst, mesenteric cyst, gastric duplication cyst, or splenic cyst. Visualized liver, spleen, adrenal glands, kidneys, aorta, and IVC unremarkable. Visualized bowel loops nonobstructed. No abnormal bone marrow signal. Impression: 1. Cholecystectomy in a otherwise negative MRCP. 2. Mild prominent pancreas with edema and tiny fluid favors clinically reported pancreatitis. Incidental subcentimeter pancreatic body cyst. 3. Cystic mass interposed between spleen and stomach as detailed. Partial differential offered above.
[2021-05-19 16:08] VITALS: BP 152/88; PULSE 75; O2SAT 95
== END 2021-05-19 18:15 | disposition home or self-care (01) ==
LOC: ED 17:05 → MED SURG 22:14
PROVIDERS: ADMIT Family Medicine; ATTEND Family Medicine
DX: K85.90 Acute pancreatitis without necrosis or infection, unspecified (principal); R11.2 Nausea with vomiting, unspecified; Z79.899 Other long term (current) drug therapy; R10.12 Left upper quadrant pain; F17.200 Nicotine dependence, unspecified, uncomplicated; Z20.828 Contact with and (suspected) exposure to other viral communicable diseases
CPT/HCPCS: 36415; 74176; 74181; 80053; 80307; 81001; 82150; 83605; 83690; 84703; 85025; 85027; 96360; 96361; 96374; 96375; 96376; 99285; G0378; U0003; J1170; J2060; J2405; A9270-GY

== ENCOUNTER 2021-06-10 05:11 | Emergency (ER) | payer OTHER ==
[2021-06-10] MEDS ORDERED: Sodium Chloride 0.9% 1000 ML 1,000 ML IV STA ×2 (05:50→07:52)
[2021-06-10] MEDS ORDERED: MORPHINE SULFATE 2 MG INJ IV ONE ×4 (05:50→16:35)
[2021-06-10] MEDS ORDERED: Zofran 4 MG/2 ML VIAL IV ONE ×3 (05:50→13:32)
[2021-06-10] MEDS ORDERED: Zofran 4 MG/2 ML VIAL ONE ×3 (05:57→13:53)
[2021-06-10] MEDS ORDERED: Sodium Chloride 0.9% 1000 ML 0 ML ONE (05:58)
[2021-06-10] MEDS ORDERED: MORPHINE SULFATE 2 MG INJ ONE ×4 (05:58→16:39)
[2021-06-10 06:21] LABS: Absolute Neutrophil Ct (ANC) 11.51 (1.4-6.9); BASOPHIL % 0.1 % (0.0-0.4); Basophil (Absolute #) 0.02 (0-0.4); Eosinophil (Absolute #) 0.14 (0-0.5); Hematocrit 39.4 % (35-47); Hemoglobin 12.7 gm/dl (12.0-16.0); Lymphocyte (Absolute #) 1.83 (1.0-4.6); Lymphocytes % 12.7 % (24.0-44.0); Mean Cell Volume 101.5 fl (78-100); Mean Corpuscular Hemoglobin 32.7 pg (26-32); Mean Corpuscular Hgb Concent. 32.2 g/dl (32-36); Mean Platelet Volume 10.7 fl (7.5-11.0); Monocyte (Absolute #) 0.92 (0.0-1.3); Monocytes % 6.4 % (0.0-12.0); Neutrophil % 79.8 % (36.0-66.0); Platelet Count 323 K/mm3 (150-450); Red Blood Count 3.88 M/mm3 (4.1-5.4); Red Cell Distribution Width 14.8 % (11.5-14.0); White Blood Count 14.4 K/mm3 (4.0-10.5)
[2021-06-10 06:26] LABS: ALBUMIN 4.2 g/dL (3.5-5.0); ALKALINE PHOSPHATASE 186 U/L (38-126); ANION GAP 15.3 MEQ/L (5-15); BLOOD UREA NITROGEN 4 mg/dL (7-17); CHLORIDE 101 mmol/L (98-107); Calcium 9.5 mg/dL (8.4-10.2); Carbon Dioxide 25 mmol/L (22-30); Creatinine 1 0.51 mg/dL (0.52-1.04); EST GLOMERULAR FILTRATION RATE > 60.0 ML/MIN; Glucose 137 mg/dL (74-106); SGOT/AST 18 U/L (14-36); SGPT/ALT 12 U/L (0-35); SODIUM 139 mmol/L (137-145); Total Protein 7.7 g/dL (6.3-8.2)
--- NOTE | 2021-06-10 06:26 | ERPHSYRPT ---
- History of Present Illness Historian: patient Exam Limitations: no limitations Patient Subjective Stated Complaint: Patient states " I have been having ABD pain and vomiting since Wednesday but this morning the pain and vomiting became intense so I came to ED." Triage Nursing Assessment: Patient arrived to ED and ambulated to room without difficulty. Patient A.O times 4. Patient able to follow directions without difficulty. Patient states she was admitted back on 05/17/21. Patient states she had MRI on 05/19/21 and that she was told she had a mass above her spleen. Pat ient states she woke up this morning with severe right upper ABD pain and vomiting and couldn't take it anymore. Patient stated symptoms have been going on since last Wednesday. + BS times 4 quads. ABD soft, round, non-distended. Patient with tenderness upon palpitation to upper right/mid ABD area. Patient states she has had BM yesterday and denies any blood in stool and states it was her norm. Patient states she has had decrease in appetite and fluid intake. Patient denies any SOB or chest pain. No S/S of respiratory distress noted. Cap refill < 3 seconds. Skin turgor < 3 seconds. Oral mucosa moist with no S/S of visual dehydration. Patient states she has been throwing up bile. Denies any trauma or injury to ABD. HX pancreatitis. Patient states she has been runnning a fever at home. Patient stated the highest fever at home was 101.3. Temp upon arrival to ED 97.9 Oral. Timing/Duration: day(s) (4 days ago) Activities at Onset: none Quality: aching Abdominal Pain Onset Location: RUQ, epigastric Pain Radiation: no radiation Severity of Pain-Max: moderate Severity of Pain-Current: mild Modifying Factors: Improves With: nothing Associated Symptoms: fever/chills, No chest pain, No shortness of breath Previous symptoms: same symptoms as today Hx Tetanus, Diphtheria Vaccination/Date Given: Yes Hx Influenza Vaccination/Date Given: Yes Hx Pneumococcal Vaccination/Date Given: No Immunizations Up to Date: Yes <LENNOX DE LOS SANTOS - Last Filed: 06/10/21 07:13> <BUBBA WANG - Last Filed: 06/10/21 09:39> - History of Present Illness Time Seen by Provider: 06/10/21 05:45 Physician History: Patient is a 30-year-old female presents to emergency department for evaluation of epigastric pain as well as nausea and vomiting. Patient states symptoms sta rted Wednesday 4 days ago. Patient admits to history of pancreatitis. Pain described as an ache that is located at the right upper and epigastric region. Patient states her symptoms are similar to her pain when she had pancreatitis. Patient states her nausea and vomiting became worse this morning. Patient vomited several times and states that it appeared she had blood in her vomitus but was bilious as well. Patient was admitted to our hospital on May 17 for the same. She had an MRI on the . Patient states that there is a mass somewhere above her spleen but is not sure the exact location. No associated trauma. She states she had a fever at home. Patient afebrile here. Bowel move ments have been normal. Patient is a smoker. She states she is otherwise healthy. Patient voices no other complaints at this time. Symptoms are moderate in intensity. No specific worsening or improving factors. Patient voices no other complaints or concerns at this time. (LENNOX DE LOS SANTOS) Allergies/Adverse Reactions: Penicillins Adverse Reaction (Mild, Verified 06/10/21 05:20) Rash pt states she is not had problems with antibitics related to pcn as an adult Home Medications: Metoprolol Tartrate 50 mg [Lopressor 50 MG] 100 mg PO BID 11/04/20 [History] Omeprazole 20 mg PO DAILY PRN PRN 11/04/20 [History] Hydrocodone/Acetaminophen [Hydrocodone-Acetamin 10-325 mg^^^] 1 tab PO Q4HPRN PRN 01/25/21 [History] Benazepril HCl 10 mg [Lotensin 10 MG] 20 mg PO DAILY 03/22/21 [History] Buspirone HCl [Buspar] 10 mg PO BID 03/22/21 [History] Travel Risk - International Travel Have you traveled outside of the country in past 3 weeks: No - Coronavirus Screening Are you exhibiting any of the following symptoms?: No Close contact with a COVID-19 positive Pt in past 14-21 Days: No - Vaccine Status Have you recieved a Covid-19 vaccination: Yes 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: [employer] - Vaccination Dates Date of 2cond Vaccination (if applicable): 05/28/21 <LENNOX DE LOS SANTOS - Last Filed: 06/10/21 07:13> - Review of Systems Constitutional: No Symptoms, No Fever, No Chills Eyes: No Symptoms Ears, Nose, & Throat: No Symptoms Respiratory: No Symptoms, No Cough, No Dyspnea Cardiac: No Symptoms, No Chest Pain, No Edema, No Syncope Abdominal/Gastrointestinal: No Symptoms, No Abdominal Pain, No Nausea, No Vomiting, No Diarrhea Genitourinary Symptoms: No Symptoms, No Dysuria Musculoskeletal: No Symptoms, No Back Pain, No Neck Pain Skin: No Symptoms, No Rash Neurological: No Symptoms, No Dizziness, No Focal Weakness, No Sensory Changes Psychological: No Symptoms Endocrine: No Symptoms Hematologic/Lymphatic: No Symptoms Immunological/Allergic: No Symptoms All Other Systems: Reviewed and Negative <LENNOX DE LOS SANTOS - Last Filed: 06/10/21 07:13> - Past Medical History Pertinent Past Medical History: Yes Neurological History: No Pertinent History ENT History: No Pertinent History Cardiac History: No Pertinent History Respiratory History: No Pertinent History Endocrine Medical History: No Pertinent History Musculoskeletal History: No Pertinent History GI Medical History: Pancreatitis History: No Pertinent History Psycho-Social History: No Pertinent History Female Reproductive Disorders: Endometriosis Other Medical History: . - Past Surgical History Past Surgical History: Yes Neuro Surgical History: No Pertinent History Cardiac: No Pertinent History Respiratory: No Pertinent History Gastrointestinal: Appendectomy, Cholecystectomy Genitourinary: No Pertinent History Musculoskeletal: No Pertinent History Female Surgical History: No Pertinent History Other Surgical History: exploratory laparoscopy per Dr Hidalgo 2014- negative, wisdom teeth - Social History Smoking Status: Current every day smoker How long have you smoked: 8 years Exposure to second hand smoke: Yes Alcohol Use: Socially Drug Use: none Patient Lives Alone: No Significant Family History: no pertinent family hx - Female History Hx Last Menstrual Period: 06/03/21 Hx Now: No <LENNOX DE LOS SANTOS - Last Filed: 06/10/21 07:13> - Physical Exam General Appearance: no apparent distress, alert Eye Exam: PERRL/EOMI, eyes nml inspection Ears, Nose, Throat Exam: normal ENT inspection, pharynx normal, moist mucous membranes Neck Exam: normal inspection, non-tender, supple, full range of motion Respiratory Exam: normal breath sounds, lungs clear, No respiratory distress Cardiovascular Exam: regular rate/rhythm, normal heart sounds Gastrointestinal/Abdomen Exam: soft, tenderness, other (epigastric and Rt. UQ TTP. Overlying ST intact. NO signs of trauma. ), No mass, No guarding, No pulsatile mass, No organomegaly, No splenomegaly Back Exam: normal inspection, normal range of motion, No CVA tenderness, No vertebral tenderness Extremity Exam: normal inspection, normal range of motion, pelvis stable Neurologic Exam: alert, oriented x 3, cooperative, normal mood/affect, nml cerebellar function, sensation nml, No motor deficits Skin Exam: normal color, warm, dry Lymphatic Exam: No adenopathy SpO2 Interpretation: normal SpO2: 98 O2 Delivery: Room Air <FILIBERTOLENNOX - Last Filed: 06/10/21 07:13> - Nursing Vital Signs Nursing Vital Signs: Initial Vital Signs Temperature 97.9 F 06/10/21 05:23 Pulse Rate 99 H 06/10/21 05:23 Respiratory Rate 18 06/10/21 05:23 Blood Pressure 198/146 06/10/21 05:23 O2 Sat by Pulse Oximetry 100 06/10/21 05:23 Pain Scale Pain Intensity 4 - Course Nursing assessment & vital signs reviewed: Yes <ANEL DE LOS SANTOSO - Last Filed: 06/10/21 07:13> Ordered Tests: Active Orders 24 hr Category Date Time Status IV Insertion STAT Care 06/10/21 05:50 Active NPO (ED) STAT Care 06/10/21 06:46 Active ABDOMEN AND PELVIS W CONTRAST [CT] Stat Exams 06/10/21 06:37 Completed CBC W DIFF Stat Lab 06/10/21 06:05 Completed CMP Stat Lab 06/10/21 06:05 Completed HCG,QUALITATIVE URINE Stat Lab 06/10/21 06:29 Completed LIPASE Stat Lab 06/10/21 06:05 Completed TROPONIN Q3H Lab 06/10/21 06:00 Completed TROPONIN Q3H Lab 06/10/21 09:02 Received TROPONIN Q3H Lab 06/10/21 12:00 Ordered TROPONIN Q3H Lab 06/10/21 15:00 Ordered TROPONIN Q3H Lab 06/10/21 18:00 Ordered UA W/RFX UR CULTURE Stat Lab 06/10/21 05:55 Completed Medication Summary Generic Name Dose Route Start Last Admin Trade Name Freq PRN Reason Stop Dose Admin Potassium Chloride 20 meq in 100 mls @ 50 mls/hr 07/20/21 07:00 06/10/21 07:12 Potassium Chloride 20 Meq In Water 100ml IV 06/10/21 10:59 50 mls/hr Q2H ANTONIO Administration Discontinued Medications Generic Name Dose Route Start Last Admin Trade Name Lazaro PRN Reason Stop Dose Admin Sodium Chloride 1,000 mls @ 999 mls/hr 06/10/21 05:50 06/10/21 07:19 Sodium Chloride 0.9% 1000 Ml IV 06/10/21 06:50 Infused .Q1H1M STA Infusion Sodium Chloride Confirm 06/10/21 05:58 Sodium Chloride 0.9% 1000 Ml Administered 06/10/21 05:59 Dose 1,000 mls @ ud .ROUTE .STK-MED ONE Sodium Chloride 1,000 mls @ 999 mls/hr 06/10/21 07:52 06/10/21 07:56 Sodium Chloride 0.9% 1000 Ml IV 06/10/21 08:52 Not Given .Q1H1M STA Lactated Ringer's 1,000 mls @ 999 mls/hr 06/10/21 07:54 06/10/21 09:04 Lactated Ringers IV 06/10/21 08:54 Infused .Q1H1M ONE Infusion Sodium Chloride Confirm 06/10/21 07:53 Sodium Chloride 0.9% 1000 Ml Administered 06/10/21 07:54 Dose 1,000 mls @ ud .ROUTE .STK-MED ONE Lactated Ringer's Confirm 06/10/21 07:56 Lactated Ringers Administered 06/10/21 07:57 Dose 1,000 mls @ ud IV .STK-MED ONE Morphine Sulfate 2 mg 06/10/21 05:50 06/10/21 06:02 Morphine Sulfate 2 Mg Inj IV 06/10/21 05:51 2 mg STAT ONE Administration Morphine Sulfate Confirm 06/10/21 05:58 Morphine Sulfate 2 Mg Inj Administered 06/10/21 05:59 Dose 2 mg .ROUTE .STK-MED ONE Morphine Sulfate 4 mg 06/10/21 06:46 06/10/21 06:48 Morphine Sulfate 4 Mg Inj IV 06/10/21 06:47 4 mg STAT ONE Administration Morphine Sulfate Confirm 06/10/21 06:48 Morphine Sulfate 4 Mg Inj Administered 06/10/21 06:49 Dose 4 mg .ROUTE .STK-MED ONE Morphine Sulfate 4 mg 06/10/21 08:12 06/10/21 08:15 Morphine Sulfate 4 Mg Inj IV 06/10/21 08:13 4 mg STAT ONE Administration Morphine Sulfate Confirm 06/10/21 08:14 Morphine Sulfate 4 Mg Inj Administered 06/10/21 08:15 Dose 4 mg .ROUTE .STK-MED ONE Ondansetron HCl 4 mg 06/10/21 05:50 06/10/21 06:02 Zofran 4 Mg/2 Ml Vial IV 06/10/21 05:51 4 mg STAT ONE Administration Ondansetron HCl Confirm 06/10/21 05:57 Zofran 4 Mg/2 Ml Vial Administered 06/10/21 05:58 Dose 4 mg .ROUTE .STK-MED ONE Ondansetron HCl 4 mg 06/10/21 08:12 06/10/21 08:15 Zofran 4 Mg/2 Ml Vial IV 06/10/21 08:13 4 mg STAT ONE Administration Ondansetron HCl Confirm 06/10/21 08:14 Zofran 4 Mg/2 Ml Vial Administered 06/10/21 08:15 Dose 4 mg .ROUTE .STK-MED ONE Lab/Rad Data: Laboratory Result Diagrams 06/10/21 06:05 06/10/21 06:05 Laboratory Results 06/10/21 06/10/21 06/10/21 Range/Units 06:29 06:05 06:05 WBC 14.4 H (4.0-10.5) K/mm3 RBC 3.88 L (4.1-5.4) M/mm3 Hgb 12.7 (12.0-16.0) gm/dl Hct 39.4 (35-47) % MCV 101.5 H (78-100) fl MCH 32.7 H (26-32) pg MCHC 32.2 (32-36) g/dl RDW 14.8 H (11.5-14.0) % Plt Count 323 (150-450) K/mm3 MPV 10.7 (7.5-11.0) fl Gran % 79.8 H (36.0-66.0) % Eos # (Auto) 0.14 (0-0.5) Absolute Lymphs (auto) 1.83 (1.0-4.6) Absolute Monos (auto) 0.92 (0.0-1.3) Lymphocytes % 12.7 L (24.0-44.0) % Monocytes % 6.4 (0.0-12.0) % Eosinophils % 1.0 (0.00-5.0) % Basophils % 0.1 (0.0-0.4) % Absolute Granulocytes 11.51 H (1.4-6.9) Basophils # 0.02 (0-0.4) Sodium 139 (137-145) mmol/L Potassium 3.0 L* (3.5-5.1) mmol/L Chloride 101 (98-107) mmol/L Carbon Dioxide 25 (22-30) mmol/L Anion Gap 15.3 H (5-15) MEQ/L BUN 4 L (7-17) mg/dL Creatinine 0.51 L (0.52-1.04) mg/dL Estimated GFR > 60.0 ML/MIN Glucose 137 H (74-106) mg/dL Calcium 9.5 (8.4-10.2) mg/dL Total Bilirubin 0.10 L (0.2-1.3) mg/dL AST 18 (14-36) U/L ALT 12 (0-35) U/L Alkaline Phosphatase 186 H (38-126) U/L Troponin I (0.000-0.034) ng/mL Serum Total Protein 7.7 (6.3-8.2) g/dL Albumin 4.2 (3.5-5.0) g/dL Lipase 44567 H (23-300) U/L Urine Color (YELLOW) Urine Appearance (CLEAR) Urine pH (5-6) Ur Specific [employer] (1.005-1.025) Urine Protein (Negative) Urine Ketones (NEGATIVE) Urine Blood (0-5) [place]/ul Urine Nitrite (NEGATIVE) Urine Bilirubin (NEGATIVE) Urine Urobilinogen (0-1) mg/dL Ur Leukocyte Esterase (NEGATIVE) Urine WBC (Auto) (0-5) /HPF Urine RBC (Auto) (0-2) /HPF U Hyaline Cast (Auto) (0-2) /LPF U Epithel Cells (Auto) (FEW) /HPF Urine Bacteria (Auto) (NEGATIVE) /HPF Urine Mucus (Auto) (NEGATIVE) /HPF Urine Culture Reflexed (NO) Urine Glucose (NEGATIVE) mg/dL Urine HCG, Qual NEGATIVE (Negative) 06/10/21 06/10/21 Range/Units 06:00 05:55 WBC (4.0-10.5) K/mm3 RBC (4.1-5.4) M/mm3 Hgb (12.0-16.0) gm/dl Hct (35-47) % MCV (78-100) fl MCH (26-32) pg MCHC (32-36) g/dl RDW (11.5-14.0) % Plt Count (150-450) K/mm3 MPV (7.5-11.0) fl Gran % (36.0-66.0) % Eos # (Auto) (0-0.5) Absolute Lymphs (auto) (1.0-4.6) Absolute Monos (auto) (0.0-1.3) Lymphocytes % (24.0-44.0) % Monocytes % (0.0-12.0) % Eosinophils % (0.00-5.0) % Basophils % (0.0-0.4) % Absolute Granulocytes (1.4-6.9) Basophils # (0-0.4) Sodium (137-145) mmol/L Potassium (3.5-5.1) mmol/L Chloride (98-107) mmol/L Carbon Dioxide (22-30) mmol/L Anion Gap (5-15) MEQ/L BUN (7-17) mg/dL Creatinine (0.52-1.04) mg/dL Estimated GFR ML/MIN Glucose (74-106) mg/dL Calcium (8.4-10.2) mg/dL Total Bilirubin (0.2-1.3) mg/dL AST (14-36) U/L ALT (0-35) U/L Alkaline Phosphatase (38-126) U/L Troponin I < 0.012 (0.000-0.034) ng/mL Serum Total Protein (6.3-8.2) g/dL Albumin (3.5-5.0) g/dL Lipase (23-300) U/L Urine Color YELLOW (YELLOW) Urine Appearance SLIGHTLY CLOUDY (CLEAR) Urine pH 7.0 (5-6) Ur Specific [employer] 1.008 (1.005-1.025) Urine Protein 30 (Negative) Urine Ketones NEGATIVE (NEGATIVE) Urine Blood NEGATIVE (0-5) [place]/ul Urine Nitrite NEGATIVE (NEGATIVE) Urine Bilirubin NEGATIVE (NEGATIVE) Urine Urobilinogen NEGATIVE (0-1) mg/dL Ur Leukocyte Esterase NEGATIVE (NEGATIVE) Urine WBC (Auto) 3-5 (0-5) /HPF Urine RBC (Auto) 0-2 (0-2) /HPF U Hyaline Cast (Auto) 0-2 (0-2) /LPF U Epithel Cells (Auto) RARE (FEW) /HPF Urine Bacteria (Auto) NONE (NEGATIVE) /HPF Urine Mucus (Auto) SLIGHT (NEGATIVE) /HPF Urine Culture Reflexed NO (NO) Urine Glucose NEGATIVE (NEGATIVE) mg/dL Urine HCG, Qual (Negative) - Progress Progress: improved <LENNOX DE LOS SANTOS - Last Filed: 06/10/21 07:13> - Progress Progress: pain not gone completely, re-examined Discussed with Dr.: Kalin Counseled pt/family regarding: lab results, diagnosis, need for follow-up, rad results <BUBBA WANG - Last Filed: 06/10/21 09:39> - Progress Progress Note: The scan pending. Lab notified ED that lipase is so high it will need to be diluted. The exact lipase amount is pending. Patient endorsed to Dr. Wang change of shift. He will make final disposition. 06/10/21 07:13 (LENNOX DE LOS SANTOS) 06/10/21 09:34 Medical decision making: This patient has recurrent acute pancreatitis. She has had several admissions in the emergency department since April 2020. Today's CAT scan shows moderate peripancreatic stranding favoring acute pancreatitis. The tail of pancreas demonstrates stable 9 mm cyst. The previous fluid collection interposed between the stomach and spleen appears markedly smaller with a tiny trace when compared to the prior study. There is no obvious walled off fluid collection or free air. Her lipase is over 27,000. This is the highest it has ever been since April 2020 in our emergency department. I spoke with her primary care physician, Dr. Khan. He is concerned that, although her CAT scan does not show any significant worsening on today's study, her lipase continues to increase. She needs to be evaluated by gastroenterology. She has been unable to secure a gastroenterology appointment. I agree that the patient would be best served being transferred to a facility where she can be admitted and followed in hospital by licensed investment sales assistant. Dr. Khan's recommendation is Dr. Lai at [facility]. I contacted Dr. Ontiveros, the hospitalist at [facility]. I reviewed the patient history, lab studies and radiographic studies as well as patient's clinical condition. He accepts the patient for transfer. He will obtain a gastroenterology consultation when the patient is been transferred admitted to their facility. (BUBBA WANG) - Departure Departure Disposition: Observation Critical Care Time: No <LENNOX DE LOS SANTOS - Last Filed: 06/10/21 07:13> - Departure Departure Disposition: Transfer <BUBBA WANG - Last Filed: 06/10/21 09:39> - Departure Clinical Impression: Pancreatitis, Nausea and vomiting, Hypokalemia, Recurrent acute pancreatitis Condition: Stable Referrals: TAMELA KHAN [Primary Care Provider] -
[2021-06-10 06:30] LABS: Appearance SLIGHTLY CLOUDY (CLEAR); Bilirubin NEGATIVE (NEGATIVE); Blood NEGATIVE Ery/ul (0-5); Epithelial Cells RARE /HPF (FEW); Glucose NEGATIVE (NEGATIVE); Hyaline Casts 0-2 /LPF (0-2); Ketones NEGATIVE (NEGATIVE); Leukocyte Esterase NEGATIVE (NEGATIVE); Mucus SLIGHT /HPF (NEGATIVE); Nitrite NEGATIVE (NEGATIVE); Protein,Urine Dip 30 (Negative); RBC 0-2 /HPF (0-2); Specific Gravity 1.008 (1.005-1.025); Urobilinogen NEGATIVE mg/dL (0-1)
[2021-06-10] MEDS ORDERED: MORPHINE SULFATE 4 MG INJ IV ONE ×3 (06:46→19:36)
[2021-06-10] MEDS ORDERED: MORPHINE SULFATE 4 MG INJ ONE ×3 (06:48→19:55)
[2021-06-10] MEDS ORDERED: POTASSIUM CHLORIDE 20 mEq IN WATER 100ML 100 ML IV ONE ×2 (07:01→16:40)
[2021-06-10] MEDS: POTASSIUM CHLORIDE 20 mEq IN WATER 100ML 20 MEQ/100 ML BAG IV SCH ×2 (07:12→16:41)
[2021-06-10 07:31] LABS: LIPASE 27128 U/L (23-300)
[2021-06-10] MEDS ORDERED: Sodium Chloride 0.9% 1000 ML 1,000 ML ONE ×3 (07:53→17:17)
[2021-06-10] MEDS ORDERED: Lactated Ringers 1,000 ML IV ONE ×2 (07:54→07:56)
--- NOTE | 2021-06-10 08:48 | XRAY ---
Indication: Pancreatitis. Multiple contiguous axial images obtained through the abdomen and pelvis using 80 cc Isovue 370 contrast. Comparison: May 17, 2021. Lung bases demonstrates new bibasilar dependent atelectasis with stable left lower lobe calcified granuloma. No infiltrate or effusion. Heart not enlarged. Noncontrasted stomach and bowel loops are nonobstructed. Pancreas remains prominent with moderate peripancreatic stranding favoring acute pancreatitis. Tail of pancreas demonstrates stable 9 mm cyst. Previous fluid collection interposed between the stomach and spleen appears markedly smaller with tiny trace. No obvious walled off fluid collection or free air. Stable 22 cm fatty hepatomegaly, splenic calcified granulomas, appendectomy, and cholecystectomy. Remaining liver, spleen, adrenal glands, kidneys, ureters, bladder, uterus, and aorta are unremarkable. No pathologic retroperitoneal lymphadenopathy. Impression: 1. Recurrent pancreatitis with tiny fluid collection interposed between stomach and spleen. 2. Again incidental fatty hepatomegaly, tiny pancreatic cyst, and old granulomatous disease.
[2021-06-10] MEDS: Sodium Chloride 0.9% 1000 ML 1,000 ML IV SCH ×2 (10:27→17:21)
[2021-06-10 19:41] VITALS: BP 156/100; PULSE 87; O2SAT 99
== END 2021-06-10 20:00 | disposition short-term general hospital (02) ==
LOC: ED 05:11
DX: K85.90 Acute pancreatitis without necrosis or infection, unspecified (principal); R11.2 Nausea with vomiting, unspecified; E87.6 Hypokalemia
CPT/HCPCS: 36000; 36415; 74177; 80053; 81001; 83690; 84484; 84703; 85025; 96360; 96361; 96374; 96376; 99285; J2270; J2405; J3480

== ENCOUNTER 2021-06-23 19:30 | Emergency (ER) | payer OTHER ==
[2021-06-23] MEDS ORDERED: Sodium Chloride 0.9% 1000 ML 1,000 ML ONE (20:07)
[2021-06-23] MEDS ORDERED: MORPHINE SULFATE 4 MG INJ ONE (20:07)
[2021-06-23] MEDS ORDERED: Zofran 4 MG/2 ML VIAL ONE (20:07)
[2021-06-23] MEDS: MORPHINE SULFATE 4 MG INJ IV ONE (20:09)
[2021-06-23] MEDS: Zofran 4 MG/2 ML VIAL IV ONE (20:09)
[2021-06-23] MEDS: Sodium Chloride 0.9% 1000 ML 1,000 ML IV STA (20:10)
[2021-06-23 20:18] LABS: Appearance SLIGHTLY CLOUDY (CLEAR); Bacteria RARE /HPF (NEGATIVE); Bilirubin NEGATIVE (NEGATIVE); Blood NEGATIVE Ery/ul (0-5); Epithelial Cells FEW /HPF (FEW); Glucose NEGATIVE (NEGATIVE); Ketones TRACE (NEGATIVE); Leukocyte Esterase NEGATIVE (NEGATIVE); Mucus SLIGHT /HPF (NEGATIVE); Nitrite NEGATIVE (NEGATIVE); Protein,Urine Dip 100 (Negative); RBC 0-2 /HPF (0-2); Specific Gravity 1.023 (1.005-1.025); Sperm PRESENT /HPF (NEGATIVE); Urobilinogen 2 mg/dL (0-1)
[2021-06-23 20:28] LABS: Absolute Neutrophil Ct (ANC) 9.29 (1.4-6.9); BASOPHIL % 0.1 % (0.0-0.4); Basophil (Absolute #) 0.01 (0-0.4); Eosinophil % 0.4 % (0.00-5.0); Eosinophil (Absolute #) 0.05 (0-0.5); Hematocrit 42.7 % (35-47); Hemoglobin 14.3 gm/dl (12.0-16.0); Lymphocyte (Absolute #) 1.84 (1.0-4.6); Lymphocytes % 15.7 % (24.0-44.0); Mean Cell Volume 99.8 fl (78-100); Mean Corpuscular Hemoglobin 33.4 pg (26-32); Mean Corpuscular Hgb Concent. 33.5 g/dl (32-36); Mean Platelet Volume 12.2 fl (7.5-11.0); Monocyte (Absolute #) 0.52 (0.0-1.3); Monocytes % 4.4 % (0.0-12.0); Neutrophil % 79.4 % (36.0-66.0); Platelet Count 293 K/mm3 (150-450); Red Blood Count 4.28 M/mm3 (4.1-5.4); White Blood Count 11.7 K/mm3 (4.0-10.5)
[2021-06-23 20:37] LABS: ALBUMIN 4.9 g/dL (3.5-5.0); ALKALINE PHOSPHATASE 93 U/L (38-126); ANION GAP 19.2 MEQ/L (5-15); BLOOD UREA NITROGEN 6 mg/dL (7-17); CHLORIDE 104 mmol/L (98-107); Calcium 10.3 mg/dL (8.4-10.2); Carbon Dioxide 18 mmol/L (22-30); EST GLOMERULAR FILTRATION RATE > 60.0 ML/MIN; Glucose 107 mg/dL (74-106); LIPASE 190 U/L (23-300); Potassium 4.4 mmol/L (3.5-5.1); SGOT/AST 22 U/L (14-36); SGPT/ALT 13 U/L (0-35); SODIUM 137 mmol/L (137-145); Total Protein 8.8 g/dL (6.3-8.2)
[2021-06-23] MEDS ORDERED: Hydromorphone 1 mg/ml Injection ONE (22:02)
[2021-06-23] MEDS: Hydromorphone 1 mg/ml Injection IV ONE (22:03)
[2021-06-23 22:07] VITALS: O2SAT 97
[2021-06-23 23:09] VITALS: BP 143/89; PULSE 93
--- NOTE | 2021-06-23 23:09 | ERPHSYRPT ---
- History of Present Illness Time Seen by Provider: 06/23/21 19:40 Historian: patient Exam Limitations: no limitations Patient Subjective Stated Complaint: "My stomach hurts." Triage Nursing Assessment: The patient reported chronic pancreatitis over the past year. She had a NG tube placed on 06-17-21 for home feedings. She reported that she has not been having any troubles with this. Two days ago she began having moderate upper abdominal pain. Today the pain worsened and is now severe with associated vomiting. She reported that she has not been able to keep today's feedings down. Denied constipation, diarrhea, fevers, chills. Reported intermittent cold sweats. Pupils 3mm bilateral. Oral mucosa pink/moist. NG in place. Neck supple without lymphadenopathy. Symmetrical chest expansion. heart tones S1/S2 RRR without extra sounds. Lungs vesicular throughout all diaz without adventitious sounds. Abdomen soft non-distended. Bowel sounds present in all quadrants. Diffuse tenderness to the RUQ, epigastric area, and LUQ. No guarding or tenderness. Peripheral pulses +3 bilateral. Gait steady without complications. Patient is alert et oriented x3 answering questions appropriately. Physician History: Patient is a 30-year-old female with a history of recurrent chronic pancreatitis over the past year presents to our ED with complaints of epigastric pain. Patient states that she has been experiencing epigastric pain. She was a patient at [facility] and discharged approximately 1 week ago. Patient states she had a [place] tube placed on 06/17/2021 to bypass the pancreas. Since she was discharged from [facility] she has been doing relatively well up until 2 days ago. Patient states her pain became progressively worse. Today patient is here because of vomiting. She is unable to tolerate feeds. No associated diarrhea. No fever. Patient admits intermittent cold sweats. Pain described as an ache that spans between the epigastrium and right upper quadrant. No radiation. Patient denies chest pain. Patient has no other complaints at this time. Timing/Duration: today Activities at Onset: none Abdominal Pain Onset Location: RUQ, epigastric Pain Radiation: no radiation Severity of Pain-Max: moderate Severity of Pain-Current: mild Modifying Factors: Improves With: palpation Associated Symptoms: denies symptoms, nausea, vomiting, No diarrhea, No fever/chills, No headache, No heartburn, No shortness of breath, No weakness Previous symptoms: same symptoms as today Allergies/Adverse Reactions: Penicillins Adverse Reaction (Mild, Verified 06/23/21 19:40) Rash pt states she is not had problems with antibitics related to pcn as an adult Home Medications: Metoprolol Tartrate 50 mg [Lopressor 50 MG] 100 mg PO BID 11/04/20 [H istory] Omeprazole 20 mg PO DAILY PRN PRN 11/04/20 [History] Hydrocodone/Acetaminophen [Hydrocodone-Acetamin 10-325 mg^^^] 1 tab PO Q4HPRN PRN 01/25/21 [History] Benazepril HCl 10 mg [Lotensin 10 MG] 20 mg PO DAILY 03/22/21 [History] Buspirone HCl [Buspar] 10 mg PO BID 03/22/21 [History] Amlodipine Besylate 5 mg PO DAILY 06/23/21 [History] Hx Tetanus, Diphtheria Vaccination/Date Given: Yes Hx Influenza Vaccination/Date Given: Yes Hx Pneumococcal Vaccination/Date Given: No Travel Risk - International Travel Have you traveled outside of the country in past 3 weeks: No - Coronavirus Screening Are you exhibiting any of the following symptoms?: No Close contact with a COVID-19 positive Pt in past 14-21 Days: No - Vaccine Status Have you recieved a Covid-19 vaccination: Yes [employer]: [employer] - Vaccination Dates Date of 2cond Vaccination (if applicable): unknown - Review of Systems Constitutional: No Symptoms, No Fever, No Chills Eyes: No Symptoms Ears, Nose, & Throat: No Symptoms Respiratory: No Symptoms, No Cough, No Dyspnea Cardiac: No Symptoms, No Chest Pain, No Edema, No Syncope Abdominal/Gastrointestinal: Abdominal Pain, Nausea, Vomiting, No Diarrhea Genitourinary Symptoms: No Dysuria Musculoskeletal: No Back Pain, No Neck Pain Skin: No Rash Neurological: No Dizziness, No Focal Weakness, No Sensory Changes Psychological: No Symptoms Endocrine: No Symptoms All Other Systems: Reviewed and Negative - Past Medical History Pertinent Past Medical History: Yes Neurological History: No Pertinent History ENT History: No Pertinent History Cardiac History: Hypertension Respiratory History: No Pertinent History Endocrine Medical History: No Pertinent History Musculoskeletal History: No Pertinent History GI Medical History: Pancreatitis History: No Pertinent History Psycho-Social History: No Pertinent History Female Reproductive Disorders: Endometriosis Other Medical History: . - Past Surgical History Past Surgical History: Yes Neuro Surgical History: No Pertinent History Cardiac: No Pertinent History Respiratory: No Pertinent History Gastrointestinal: Appendectomy, Cholecystectomy Genitourinary: No Pertinent History Musculoskeletal: No Pertinent History Female Surgical History: No Pertinent History Other Surgical History: exploratory laparoscopy per Dr Hidalgo 2015- negative, wisdom teeth. NG tube placed for home feedings on 06-17-21 - Social History Smoking Status: Current every day smoker How long have you smoked: 8 years Exposure to second hand smoke: Yes Alcohol Use: Socially Drug Use: none Patient Lives Alone: No Significant Family History: no pertinent family hx - Female History Hx Now: No - Nursing Vital Signs Nursing Vital Signs: Initial Vital Signs Temperature 98 F 06/23/21 19:31 Pulse Rate 107 H 06/23/21 19:31 Respiratory Rate 18 06/23/21 19:31 Blood Pressure 182/130 06/23/21 19:31 O2 Sat by Pulse Oximetry 99 06/23/21 19:31 Pain Scale Pain Intensity 6 - Physical Exam General Appearance: no apparent distress, alert Eye Exam: PERRL/EOMI, eyes nml inspection Ears, Nose, Throat Exam: normal ENT inspection, pharynx normal, moist mucous membranes, other (Intact [place] tube) Neck Exam: normal inspection, non-tender, supple, full range of motion Respiratory Exam: normal breath sounds, lungs clear, No respiratory distress Cardiovascular Exam: regular rate/rhythm, normal heart sounds Gastrointestinal/Abdomen Exam: soft, No tenderness, No mass Back Exam: normal inspection, normal range of motion, No CVA tenderness, No vertebral tenderness Extremity Exam: normal inspection, normal range of motion, pelvis stable Neurologic Exam: alert, oriented x 3, cooperative, normal mood/affect, nml cerebellar function, sensation nml, No motor deficits Skin Exam: normal color, warm, dry SpO2 Interpretation: normal SpO2: 97 O2 Delivery: Room Air - Course Nursing assessment & vital signs reviewed: Yes - CT Exams Abdomen/Pelvis CT Interpretation: Tele-radiologist Report (Resolved pancreatitis with stable tiny pancreatic tail cyst, new feeding tube tip in proximal jejunum. New 3.7 cm right ovarian cyst, stable fatty hepatomegaly. Remaining abdomen pelvis negative.) Ordered Tests: Active Orders 24 hr Category Date Time Status AMA [Release AMA] OM.NOW Care 06/23/21 23:35 Ordered IV Insertion STAT Care 06/23/21 20:02 Active ABDOMEN AND PELVIS W CONTRAST [CT] Stat Exams 06/23/21 20:03 Taken CBC W DIFF Stat Lab 06/23/21 20:20 Completed CMP Stat Lab 06/23/21 20:20 Completed LIPASE Stat Lab 06/23/21 20:20 Completed TROPONIN Q3H Lab 06/23/21 20:20 Completed TROPONIN Q3H Lab 06/24/21 02:15 Ordered TROPONIN Q3H Lab 06/24/21 05:15 Ordered TROPONIN Q3H Lab 06/24/21 08:15 Ordered UA W/RFX UR CULTURE Stat Lab 06/23/21 20:05 Completed Medication Summary Discontinued Medications Generic Name Dose Route Start Last Admin Trade Name Freq PRN Reason Stop Dose Admin Hydromorphone HCl 1 mg 06/23/21 22:01 06/23/21 22:03 Hydromorphone 1 Mg/Ml Injection IV 06/23/21 22:02 1 mg STAT ONE Administration Hydromorphone HCl Confirm 06/23/21 22:02 Hydromorphone 1 Mg/Ml Injection Administered 06/23/21 22:03 Dose 1 mg .ROUTE .STK-MED ONE Sodium Chloride 1,000 mls @ 999 mls/hr 06/23/21 20:02 06/23/21 20:10 Sodium Chloride 0.9% 1000 Ml IV 06/23/21 21:02 999 mls/hr .Q1H1M STA Administration Sodium Chloride Confirm 06/23/21 20:07 Sodium Chloride 0.9% 1000 Ml Administered 06/23/21 20:08 Dose 1,000 mls @ ud .ROUTE .STK-MED ONE Morphine Sulfate 4 mg 06/23/21 20:06 06/23/21 20:09 Morphine Sulfate 4 Mg Inj IV 06/23/21 20:07 4 mg STAT ONE Administration Morphine Sulfate Confirm 06/23/21 20:07 Morphine Sulfate 4 Mg Inj Administered 06/23/21 20:08 Dose 4 mg .ROUTE .STK-MED ONE Ondansetron HCl 4 mg 06/23/21 20:06 06/23/21 20:09 Zofran 4 Mg/2 Ml Vial IV 06/23/21 20:07 4 mg STAT ONE Administration Ondansetron HCl Confirm 06/23/21 20:07 Zofran 4 Mg/2 Ml Vial Administered 06/23/21 20:08 Dose 4 mg .ROUTE .STK-MED ONE Lab/Rad Data: Laboratory Result Diagrams 06/23/21 20:20 06/23/21 20:20 Laboratory Results 06/23/21 06/23/21 06/23/21 Range/Units 20:20 20:20 20:20 WBC 11.7 H (4.0-10.5) K/mm3 RBC 4.28 (4.1-5.4) M/mm3 Hgb 14.3 (12.0-16.0) gm/dl Hct 42.7 (35-47) % MCV 99.8 (78-100) fl MCH 33.4 H (26-32) pg MCHC 33.5 (32-36) g/dl RDW 14.0 (11.5-14.0) % Plt Count 293 (150-450) K/mm3 MPV 12.2 H (7.5-11.0) fl Gran % 79.4 H (36.0-66.0) % Eos # (Auto) 0.05 (0-0.5) Absolute Lymphs (auto) 1.84 (1.0-4.6) Absolute Monos (auto) 0.52 (0.0-1.3) Lymphocytes % 15.7 L (24.0-44.0) % Monocytes % 4.4 (0.0-12.0) % Eosinophils % 0.4 (0.00-5.0) % Basophils % 0.1 (0.0-0.4) % Absolute Granulocytes 9.29 H (1.4-6.9) Basophils # 0.01 (0-0.4) Sodium 137 (137-145) mmol/L Potassium 4.4 (3.5-5.1) mmol/L Chloride 104 (98-107) mmol/L Carbon Dioxide 18 L (22-30) mmol/L Anion Gap 19.2 H (5-15) MEQ/L BUN 6 L (7-17) mg/dL Creatinine 0.50 L (0.52-1.04) mg/dL Estimated GFR > 60.0 ML/MIN Glucose 107 H (74-106) mg/dL Calcium 10.3 H (8.4-10.2) mg/dL Total Bilirubin 0.50 (0.2-1.3) mg/dL AST 22 (14-36) U/L ALT 13 (0-35) U/L Alkaline Phosphatase 93 (38-126) U/L Troponin I < 0.012 (0.000-0.034) ng/mL Serum Total Protein 8.8 H (6.3-8.2) g/dL Albumin 4.9 (3.5-5.0) g/dL Lipase 190 (23-300) U/L Urine Color (YELLOW) Urine Appearance (CLEAR) Urine pH (5-6) Ur Specific [place] (1.005-1.025) Urine Protein (Negative) Urine Ketones (NEGATIVE) Urine Blood (0-5) [place]/ul Urine Nitrite (NEGATIVE) Urine Bilirubin (NEGATIVE) Urine Urobilinogen (0-1) mg/dL Ur Leukocyte Esterase (NEGATIVE) Urine WBC (Auto) (0-5) /HPF Urine RBC (Auto) (0-2) /HPF U Epithel Cells (Auto) (FEW) /HPF Urine Bacteria (Auto) (NEGATIVE) /HPF Urine Mucus (Auto) (NEGATIVE) /HPF Urine Sperm (Auto) (NEGATIVE) /HPF Urine Culture Reflexed (NO) Urine Glucose (NEGATIVE) mg/dL 06/23/21 Range/Units 20:05 WBC (4.0-10.5) K/mm3 RBC (4.1-5.4) M/mm3 Hgb (12.0-16.0) gm/dl Hct (35-47) % MCV (78-100) fl MCH (26-32) pg MCHC (32-36) g/dl RDW (11.5-14.0) % Plt Count (150-450) K/mm3 MPV (7.5-11.0) fl Gran % (36.0-66.0) % Eos # (Auto) (0-0.5) Absolute Lymphs (auto) (1.0-4.6) Absolute Monos (auto) (0.0-1.3) Lymphocytes % (24.0-44.0) % Monocytes % (0.0-12.0) % Eosinophils % (0.00-5.0) % Basophils % (0.0-0.4) % Absolute Granulocytes (1.4-6.9) Basophils # (0-0.4) Sodium (137-145) mmol/L Potassium (3.5-5.1) mmol/L Chloride (98-107) mmol/L Carbon Dioxide (22-30) mmol/L Anion Gap (5-15) MEQ/L BUN (7-17) mg/dL Creatinine (0.52-1.04) mg/dL Estimated GFR ML/MIN Glucose (74-106) mg/dL Calcium (8.4-10.2) mg/dL Total Bilirubin (0.2-1.3) mg/dL AST (14-36) U/L ALT (0-35) U/L Alkaline Phosphatase (38-126) U/L Troponin I (0.000-0.034) ng/mL Serum Total Protein (6.3-8.2) g/dL Albumin (3.5-5.0) g/dL Lipase (23-300) U/L Urine Color [place]YN (YELLOW) Urine Appearance SLIGHTLY CLOUDY (CLEAR) Urine pH 5.0 (5-6) Ur Specific [place] 1.023 (1.005-1.025) Urine Protein 100 (Negative) Urine Ketones TRACE (NEGATIVE) Urine Blood NEGATIVE (0-5) [place]/ul Urine Nitrite NEGATIVE (NEGATIVE) Urine Bilirubin NEGATIVE (NEGATIVE) Urine Urobilinogen 2 (0-1) mg/dL Ur Leukocyte Esterase NEGATIVE (NEGATIVE) Urine WBC (Auto) 3-5 (0-5) /HPF Urine RBC (Auto) 0-2 (0-2) /HPF U Epithel Cells (Auto) FEW (FEW) /HPF Urine Bacteria (Auto) RARE (NEGATIVE) /HPF Urine Mucus (Auto) SLIGHT (NEGATIVE) /HPF Urine Sperm (Auto) PRESENT (NEGATIVE) /HPF Urine Culture Reflexed NO (NO) Urine Glucose NEGATIVE (NEGATIVE) mg/dL - Progress Progress: unchanged Progress Note: Patient reassessed. She remains symptomatic. Slight leukocytosis observed on work-up. There is also a slight metabolic acidosis. Patient received IV fluids. CT scan revealed the pancreatic tail cyst. NG tube intact. Patient also has a right ovarian cyst. In light of patient's ongoing symptoms we advised admission as patient will likely become dehydrated if discharged home. Patient declined patient states she prefers to go home. Patient is of sound mind. Patient is appropriate to make informed and independent medical decisions. Patient understands that leaving AGAINST MEDICAL ADVICE can result in delayed diagnosis, increased risk of morbidity, mortality, short and long-term disability including . In spite of these risks, patient has decided to leave AGAINST MEDICAL ADVICE. Patient understands that he/she may return to our ED at any point if he or she reconsiders. Patient agrees to follow-up with his or her primary care doctor within 48 hours for reevaluation. Patient voices no other complaints or concerns at this time. We will release patient AGAINST MEDICAL ADVICE per their request. Portions of this note were created with voice recognition technology. There may be grammatical, spelling, punctuation or sound alike errors 06/23/21 23:42 Counseled pt/family regarding: lab results, diagnosis, need for follow-up, rad results - Departure Departure Disposition: AMA Clinical Impression: pancreatic tail cyst, Ovarian cyst, Hepatic steatosis, Hepatomegaly, Nausea & vomiting, Leukocytosis, Metabolic acidosis Condition: Stable Critical Care Time: No Referrals: TAMELA KHAN [Primary Care Provider] - Instructions: Pancreatitis (DC), Ovarian Cyst (DC) Additional Instructions: Discharge/Care Plan YURI MENJIVAR was seen on 06/23/21 in the Emergency Room. The patient was counseled regarding Diagnosis,Lab results, Imaging studies, need for follow up and when to return to the Emergency Room. Prescriptions given: Discharge Note I have spoken with the patient and/or caregivers. I have explained the patient's condition, diagnosis and treatment plan based on the information available to me at this time. I have answered the patient's and/or caregiver's questions and addressed any concerns. The patient and/or caregivers have as good understanding of the patient's diagnosis, condition and treatment plan as can be expected at this point. The vital signs have been stable. The patient's condition is stable and appropriate for discharge from the emergency department. The patient will pursue further outpatient evaluation with the primary care physician or other designated or consulting physician as outlined in the discharge instructions. The patient and/or caregivers are agreeable to this plan of care and follow-up instructions have been explained in detail. The patient and/or caregivers have received these instruction. The patient/and or caregivers are aware that any significant change in condition or worsening of symptoms should prompt an immediate return to this or the closest emergency department or call 911.
--- NOTE | 2021-06-24 09:01 | XRAY ---
Indication: Abdomen pain with nausea and vomiting. Chronic pancreatitis. Endometriosis. Multiple contiguous images obtained through the abdomen and pelvis using 80 cc Isovue 370 contrast. Comparison: June 10, 2021. Lung bases again demonstrates mild dependent atelectasis and tiny left costophrenic angle calcified granuloma. No infiltrate or effusion. Heart is not enlarged. New feeding tube traverses the esophagus and stomach with tip in the proximal duodenum. Tip of feeding tube produces extreme beam artifact. Noncontrasted stomach and bowel loops nonobstructed. New 3.7 cm right ovary cyst. Again tiny pancreatic tail cyst, 20.8 cm fatty hepatomegaly, 13 cm splenomegaly with calcified granulomas, appendectomy, and cholecystectomy. No free fluid/air. Remaining liver, pancreas, spleen, adrenal glands, kidneys, ureters, bladder, uterus, and aorta are unremarkable. No pathologic retroperitoneal lymphadenopathy. Impression: 1. New 3.7 cm right ovary cyst and feeding tube in situ. 2. Again incidental tiny pancreatic cyst, fatty hepatomegaly, splenomegaly, and old granulomatous disease. 3. Remaining CT abdomen/pelvis with contrast exam is negative.
== END 2021-06-23 23:48 | disposition left against medical advice (07) ==
LOC: ED 19:30
DX: K86.2 Cyst of pancreas (principal); R10.13 Epigastric pain; R11.2 Nausea with vomiting, unspecified; Z79.899 Other long term (current) drug therapy; I10 Essential (primary) hypertension; N83.201 Unspecified ovarian cyst, right side; K76.0 Fatty (change of) liver, not elsewhere classified; E87.2 Acidosis; D72.829 Elevated white blood cell count, unspecified
CPT/HCPCS: 36000; 36415; 74177; 80053; 81001; 83690; 84484; 85025; 96374; 96375; 99284; J1170; J2270; J2405

== ENCOUNTER 2021-06-29 23:38 | Emergency (ER) | payer OTHER ==
--- NOTE | 2021-06-29 23:52 | ERPHSYRPT ---
- History of Present Illness Time Seen by Provider: 06/29/21 23:52 Historian: patient Exam Limitations: no limitations Physician History: This is a 31-year-old white female patient of Dr. Khan and Dr. Lai of [facility] (gastroenterology) who has a history of recurrent pancreatitis and recurrent nausea vomiting and abdominal pain. Patient had a nasogastric jejunal tube feed placed under radiographic fluoroscopy at [facility] over 2 weeks ago. She has been doing tube feeds at night. Today, she felt very nauseated and began gagging and the tube dislodged and a significant portion is in her oral cavity and she is gagging on this. She wants it taken out. Patient has the same amount of abdominal pain as usual. Her primary issues were the nausea vomiting and the GJ-tube that she wanted removed. Timing/Duration: today Activities at Onset: none Quality: cramping Abdominal Pain Onset Location: generalized abdomen Pain Radiation: no radiation Severity of Pain-Max: moderate Severity of Pain-Current: moderate Associated Symptoms: loss of appetite, nausea, vomiting Previous symptoms: same symptoms as today, recently seen, recent hospitalization, recently treated Allergies/Adverse Reactions: Penicillins Adverse Reaction (Mild, Verified 06/23/21 19:40) Rash pt states she is not had problems with antibitics related to pcn as an adult Home Medications: Metoprolol Tartrate 50 mg [Lopressor 50 MG] 100 mg PO BID 11/04/20 [History] Omeprazole 20 mg PO DAILY PRN PRN 11/04/20 [History] Hydrocodone/Acetaminophen [Hydrocodone-Acetamin 10-325 mg^^^] 1 tab PO Q4HPRN PRN 01/25/21 [History] Benazepril HCl 10 mg [Lotensin 10 MG] 20 mg PO DAILY 03/22/21 [History] Buspirone HCl [Buspar] 10 mg PO BID 03/22/21 [History] Amlodipine Besylate 5 mg PO DAILY 06/23/21 [History] Hx Tetanus, Diphtheria Vaccination/Date Given: Yes Hx Influenza Vaccination/Date Given: Yes Hx Pneumococcal Vaccination/Date Given: No Travel Risk - International Travel Have you traveled outside of the country in past 3 weeks: No - Vaccine Status Have you recieved a Covid-19 vaccination: Yes 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: [employer] - Vaccination Dates Date of 2cond Vaccination (if applicable): unknown - Review of Systems Constitutional: No Symptoms Eyes: No Symptoms Ears, Nose, & Throat: Other (GJ-tube within her oral cavity) Respiratory: No Symptoms Cardiac: No Symptoms Abdominal/Gastrointestinal: Abdominal Pain, Nausea, Vomiting Genitourinary Symptoms: No Symptoms Musculoskeletal: No Symptoms Skin: No Symptoms Neurological: No Symptoms Psychological: No Symptoms Endocrine: No Symptoms Hematologic/Lymphatic: No Symptoms Immunological/Allergic: No Symptoms All Other Systems: Reviewed and Negative - Past Medical History Pertinent Past Medical History: Yes Neurological History: No Pertinent History ENT History: No Pertinent History Cardiac History: Hypertension Respiratory History: No Pertinent History Endocrine Medical History: No Pertinent History Musculoskeletal History: No Pertinent History GI Medical History: Pancreatitis History: No Pertinent History Psycho-Social History: No Pertinent History Female Reproductive Disorders: Endometriosis Other Medical History: . - Past Surgical History Past Surgical History: Yes Neuro Surgical History: No Pertinent History Cardiac: No Pertinent History Respiratory: No Pertinent History Gastrointestinal: Appendectomy, Cholecystectomy Genitourinary: No Pertinent History Musculoskeletal: No Pertinent History Female Surgical History: No Pertinent History Other Surgical History: exploratory laparoscopy per Dr Hidalgo 2014- negative, wisdom teeth. NG tube placed for home feedings on 06-17-21 - Social History Smoking Status: Current every day smoker How long have you smoked: 8 years Exposure to second hand smoke: Yes Alcohol Use: Socially Drug Use: none Patient Lives Alone: No Significant Family History: no pertinent family hx - Nursing Vital Signs Nursing Vital Signs: Initial Vital Signs Temperature 97.4 F 06/29/21 23:49 Pulse Rate 100 H 06/29/21 23:49 Respiratory Rate 24 06/29/21 23:49 Blood Pressure 167/106 06/29/21 23:49 O2 Sat by Pulse Oximetry 100 06/29/21 23:49 Pain Scale Pain Intensity 9 - Physical Exam General Appearance: mild distress, alert, anxiety Eye Exam: PERRL/EOMI, eyes nml inspection Ears, Nose, Throat Exam: moist mucous membranes, other (GJ-tube coiling in her throat and mouth. It is visible on oral cavity exam.) Neck Exam: normal inspection, non-tender, supple, full range of motion Respiratory Exam: normal breath sounds, lungs clear, airway intact, No chest tenderness, No respiratory distress Cardiovascular Exam: regular rate/rhythm, normal heart sounds, normal peripheral pulses Gastrointestinal/Abdomen Exam: soft, normal bowel sounds, tenderness (Epigastric and right upper quadrant areas), No guarding, No rebound Pelvic Exam: not done Rectal Exam: not done Back Exam: normal inspection, normal range of motion, No CVA tenderness, No vertebral tenderness Extremity Exam: normal inspection, normal range of motion, pelvis stable Neurologic Exam: alert, oriented x 3, cooperative, plan examiner II-XII nml as tested, normal mood/affect, nml cerebellar function, nml station & gait, sensation nml Skin Exam: normal color, warm, dry Lymphatic Exam: No adenopathy SpO2 Interpretation: normal O2 Delivery: Room Air - Course Nursing assessment & vital signs reviewed: Yes Ordered Tests: Active Orders 24 hr Category Date Time Status IV Insertion STAT Care 06/30/21 00:24 Active AMYLASE Stat Lab 06/30/21 00:32 Completed CBC W DIFF Stat Lab 06/30/21 00:32 Completed CMP Stat Lab 06/30/21 00:32 Completed LIPASE Stat Lab 06/30/21 00:32 Completed Lactic Acid Stat Lab 06/30/21 00:24 Completed UA W/RFX UR CULTURE Stat Lab 06/30/21 01:14 Completed Medication Summary Discontinued Medications Generic Name Dose Route Start Last Admin Trade Name Freq PRN Reason Stop Dose Admin Hydromorphone HCl 1 mg 06/30/21 00:24 06/30/21 00:44 Hydromorphone 1 Mg/Ml Injection IV 06/30/21 00:25 1 mg STAT ONE Administration Hydromorphone HCl Confirm 06/30/21 00:38 Hydromorphone 1 Mg/Ml Injection Administered 06/30/21 00:39 Dose 1 mg .ROUTE .STK-MED ONE Sodium Chloride 1,000 mls @ 999 mls/hr 06/30/21 00:24 06/30/21 00:44 Sodium Chloride 0.9% 1000 Ml IV 06/30/21 01:24 999 mls/hr .Q1H1M STA Administration Sodium Chloride Confirm 06/30/21 00:38 Sodium Chloride 0.9% 1000 Ml Administered 06/30/21 00:39 Dose 1,000 mls @ ud .ROUTE .STK-MED ONE Ondansetron HCl Confirm 06/30/21 00:42 Zofran 4 Mg/2 Ml Vial Administered 06/30/21 00:43 Dose 4 mg .ROUTE .STK-MED ONE Ondansetron HCl 4 mg 06/30/21 00:46 06/30/21 00:47 Zofran 4 Mg/2 Ml Vial IV 06/30/21 00:47 4 mg STAT ONE Administration Prochlorperazine Edisylate 10 mg 06/30/21 00:24 Compazine 10 Mg/2 Ml IV 06/30/21 00:25 STAT ONE Prochlorperazine Edisylate Confirm 06/30/21 00:38 Compazine 10 Mg/2 Ml Administered 06/30/21 00:39 Dose 10 mg .ROUTE .STK-MED ONE Lab/Rad Data: Laboratory Result Diagrams 06/30/21 00:32 06/30/21 00:32 Laboratory Results 06/30/21 06/30/21 06/30/21 Range/Units 01:14 00:32 00:32 WBC 14.4 H (4.0-10.5) K/mm3 RBC 3.94 L (4.1-5.4) M/mm3 Hgb 12.7 (12.0-16.0) gm/dl Hct 39.5 (35-47) % MCV 100.3 H (78-100) fl MCH 32.2 H (26-32) pg MCHC 32.2 (32-36) g/dl RDW 13.5 (11.5-14.0) % Plt Count 321 (150-450) K/mm3 MPV 12.3 H (7.5-11.0) fl Gran % 66.5 H (36.0-66.0) % Eos # (Auto) 0.19 (0-0.5) Absolute Lymphs (auto) 3.63 (1.0-4.6) Absolute Monos (auto) 0.99 (0.0-1.3) Lymphocytes % 25.2 (24.0-44.0) % Monocytes % 6.9 (0.0-12.0) % Eosinophils % 1.3 (0.00-5.0) % Basophils % 0.1 (0.0-0.4) % Absolute Granulocytes 9.55 H (1.4-6.9) Basophils # 0.02 (0-0.4) Sodium 139 (137-145) mmol/L Potassium 3.6 (3.5-5.1) mmol/L Chloride 105 (98-107) mmol/L Carbon Dioxide 21 L (22-30) mmol/L Anion Gap 16.2 H (5-15) MEQ/L BUN 10 (7-17) mg/dL Creatinine 0.51 L (0.52-1.04) mg/dL Estimated GFR > 60.0 ML/MIN Glucose 102 (74-106) mg/dL Lactic Acid (0.4-2.0) Calcium 10.0 (8.4-10.2) mg/dL Total Bilirubin < 0.10 L (0.2-1.3) mg/dL AST 18 (14-36) U/L ALT 10 (0-35) U/L Alkaline Phosphatase 67 (38-126) U/L Serum Total Protein 8.7 H (6.3-8.2) g/dL Albumin 4.9 (3.5-5.0) g/dL Amylase 110 (30-110) U/L Lipase 360 H (23-300) U/L Urine Color YELLOW (YELLOW) Urine Appearance CLEAR (CLEAR) Urine pH 5.0 (5-6) Ur Specific [place] 1.017 (1.005-1.025) Urine Protein >500 (Negative) Urine Ketones NEGATIVE (NEGATIVE) Urine Blood NEGATIVE (0-5) [place]/ul Urine Nitrite NEGATIVE (NEGATIVE) Urine Bilirubin NEGATIVE (NEGATIVE) Urine Urobilinogen 2 (0-1) mg/dL Ur Leukocyte Esterase NEGATIVE (NEGATIVE) Urine WBC (Auto) 0-2 (0-5) /HPF Urine RBC (Auto) NONE SEEN (0-2) /HPF U Epithel Cells (Auto) RARE (FEW) /HPF Urine Bacteria (Auto) NONE SEEN (NEGATIVE) /HPF Urine Mucus (Auto) SLIGHT (NEGATIVE) /HPF Urine Culture Reflexed NO (NO) Urine Glucose NEGATIVE (NEGATIVE) mg/dL 06/30/21 Range/Units 00:24 WBC (4.0-10.5) K/mm3 RBC (4.1-5.4) M/mm3 Hgb (12.0-16.0) gm/dl Hct (35-47) % MCV (78-100) fl MCH (26-32) pg MCHC (32-36) g/dl RDW (11.5-14.0) % Plt Count (150-450) K/mm3 MPV (7.5-11.0) fl Gran % (36.0-66.0) % Eos # (Auto) (0-0.5) Absolute Lymphs (auto) (1.0-4.6) Absolute Monos (auto) (0.0-1.3) Lymphocytes % (24.0-44.0) % Monocytes % (0.0-12.0) % Eosinophils % (0.00-5.0) % Basophils % (0.0-0.4) % Absolute Granulocytes (1.4-6.9) Basophils # (0-0.4) Sodium (137-145) mmol/L Potassium (3.5-5.1) mmol/L Chloride (98-107) mmol/L Carbon Dioxide (22-30) mmol/L Anion Gap (5-15) MEQ/L BUN (7-17) mg/dL Creatinine (0.52-1.04) mg/dL Estimated GFR ML/MIN Glucose (74-106) mg/dL Lactic Acid 1.5 (0.4-2.0) Calcium (8.4-10.2) mg/dL Total Bilirubin (0.2-1.3) mg/dL AST (14-36) U/L ALT (0-35) U/L Alkaline Phosphatase (38-126) U/L Serum Total Protein (6.3-8.2) g/dL Albumin (3.5-5.0) g/dL Amylase (30-110) U/L Lipase (23-300) U/L Urine Color (YELLOW) Urine Appearance (CLEAR) Urine pH (5-6) Ur Specific [place] (1.005-1.025) Urine Protein (Negative) Urine Ketones (NEGATIVE) Urine Blood (0-5) [place]/ul Urine Nitrite (NEGATIVE) Urine Bilirubin (NEGATIVE) Urine Urobilinogen (0-1) mg/dL Ur Leukocyte Esterase (NEGATIVE) Urine WBC (Auto) (0-5) /HPF Urine RBC (Auto) (0-2) /HPF U Epithel Cells (Auto) (FEW) /HPF Urine Bacteria (Auto) (NEGATIVE) /HPF Urine Mucus (Auto) (NEGATIVE) /HPF Urine Culture Reflexed (NO) Urine Glucose (NEGATIVE) mg/dL - Progress Progress: improved, pain not gone completely, re-examined Progress Note: 06/30/21 00:57 Medical decision making: This patient presents with her GJ-tube coiling within her oral cavity. Is almost coming out when she speaks outside of her lips. It is gagging her. She wants it out. In addition, nausea and vomiting is more of a significant issue than her chronic abdominal pain. My plan is to check her electrolytes, kidney function and liver function as well as amylase and lipase. We will check a urine and look for infection and evidence of dehydration with the presence or absence of ketones. The patient has had several CAT scans of the abdomen pelvis recently here at this institution but also at other institutions. I will not perform a repeat CAT scan of the abdomen pelvis unless I feel that is absolutely necessary. The patient is in agreement with this. Counseled pt/family regarding: lab results, diagnosis, need for follow-up - Departure Departure Disposition: Home Clinical Impression: Nausea and vomiting in adult patient, Recurrent epigastric abdominal pain, Complication of feeding tube Condition: Stable Critical Care Time: No Referrals: TAMELA KHAN [Primary Care Provider] - Additional Instructions: Take all your medications as prescribed. Call Dr. Jackson and Dr. Khan later this morning to obtain further instructions and follow-up appointments.
[2021-06-30] MEDS ORDERED: Compazine 10 MG/2 ML IV ONE (00:24)
[2021-06-30] MEDS ORDERED: Hydromorphone 1 mg/ml Injection IV ONE (00:24)
[2021-06-30] MEDS ORDERED: Sodium Chloride 0.9% 1000 ML 1,000 ML IV STA (00:24)
[2021-06-30 00:37] LABS: Absolute Neutrophil Ct (ANC) 9.55 (1.4-6.9); BASOPHIL % 0.1 % (0.0-0.4); Basophil (Absolute #) 0.02 (0-0.4); Eosinophil % 1.3 % (0.00-5.0); Eosinophil (Absolute #) 0.19 (0-0.5); Hematocrit 39.5 % (35-47); Hemoglobin 12.7 gm/dl (12.0-16.0); Lymphocyte (Absolute #) 3.63 (1.0-4.6); Lymphocytes % 25.2 % (24.0-44.0); Mean Cell Volume 100.3 fl (78-100); Mean Corpuscular Hemoglobin 32.2 pg (26-32); Mean Corpuscular Hgb Concent. 32.2 g/dl (32-36); Mean Platelet Volume 12.3 fl (7.5-11.0); Monocyte (Absolute #) 0.99 (0.0-1.3); Monocytes % 6.9 % (0.0-12.0); Neutrophil % 66.5 % (36.0-66.0); Platelet Count 321 K/mm3 (150-450); Red Blood Count 3.94 M/mm3 (4.1-5.4); Red Cell Distribution Width 13.5 % (11.5-14.0); White Blood Count 14.4 K/mm3 (4.0-10.5)
[2021-06-30] MEDS ORDERED: Compazine 10 MG/2 ML ONE (00:38)
[2021-06-30] MEDS ORDERED: Hydromorphone 1 mg/ml Injection ONE (00:38)
[2021-06-30] MEDS ORDERED: Sodium Chloride 0.9% 1000 ML 1,000 ML ONE (00:38)
[2021-06-30] MEDS ORDERED: Zofran 4 MG/2 ML VIAL ONE (00:42)
[2021-06-30] MEDS ORDERED: Zofran 4 MG/2 ML VIAL IV ONE (00:46)
[2021-06-30 00:51] LABS: ALBUMIN 4.9 g/dL (3.5-5.0); ALKALINE PHOSPHATASE 67 U/L (38-126); AMYLASE 110 U/L (30-110); ANION GAP 16.2 MEQ/L (5-15); BILIRUBIN,TOTAL < 0.10 mg/dL (0.2-1.3); BLOOD UREA NITROGEN 10 mg/dL (7-17); CHLORIDE 105 mmol/L (98-107); Carbon Dioxide 21 mmol/L (22-30); Creatinine 1 0.51 mg/dL (0.52-1.04); EST GLOMERULAR FILTRATION RATE > 60.0 ML/MIN; Glucose 102 mg/dL (74-106); LIPASE 360 U/L (23-300); Potassium 3.6 mmol/L (3.5-5.1); SGOT/AST 18 U/L (14-36); SGPT/ALT 10 U/L (0-35); SODIUM 139 mmol/L (137-145); Total Protein 8.7 g/dL (6.3-8.2)
[2021-06-30 01:41] LABS: Appearance CLEAR (CLEAR); Bilirubin NEGATIVE (NEGATIVE); Glucose NEGATIVE (NEGATIVE); Ketones NEGATIVE (NEGATIVE); Leukocyte Esterase NEGATIVE (NEGATIVE); Nitrite NEGATIVE (NEGATIVE); Protein,Urine Dip >500 (Negative); Specific Gravity 1.017 (1.005-1.025); Urobilinogen 2 mg/dL (0-1)
[2021-06-30 01:42] LABS: Bacteria NONE SEEN /HPF (NEGATIVE); Blood NEGATIVE Ery/ul (0-5); Epithelial Cells RARE /HPF (FEW); Mucus SLIGHT /HPF (NEGATIVE); RBC NONE SEEN /HPF (0-2); WBC 0-2 /HPF (0-5)
[2021-06-30 02:47] VITALS: BP 143/89; PULSE 98; O2SAT 98
== END 2021-06-30 02:47 | disposition home or self-care (01) ==
LOC: ED 23:38
DX: R10.13 Epigastric pain (principal); K94.29 Other complications of gastrostomy
CPT/HCPCS: 36000; 36415; 80053; 81001; 82150; 83605; 83690; 85025; 96360; 96374; 99284; J1170; J2405

== ENCOUNTER 2021-07-16 15:52 | Inpatient (IN) | payer OTHER ==
--- NOTE | 2021-07-16 15:57 | ERPHSYRPT ---
- History of Present Illness Historian: patient, family Exam Limitations: no limitations Timing/Duration: day(s) (4) Activities at Onset: none Quality: aching, cramping Abdominal Pain Onset Location: generalized abdomen Pain Radiation: no radiation Severity of Pain-Max: moderate Severity of Pain-Current: moderate Modifying Factors: Improves With: vomiting Associated Symptoms: chest pain, loss of appetite, nausea, vomiting, weakness, No fever/chills, No shortness of breath Previous symptoms: same symptoms as today, recently seen, recent hospitalization, recently treated Hx Tetanus, Diphtheria Vaccination/Date Given: Yes Hx Influenza Vaccination/Date Given: Yes Hx Pneumococcal Vaccination/Date Given: No <BUBBA WANG - Last Filed: 07/16/21 18:53> <BARRETT JOSEPH - Last Filed: 07/16/21 20:51> - History of Present Illness Time Seen by Provider: 07/16/21 15:57 Physician History: This is a 31-year-old white female who is known to our emergency department because of several visits in the last several months for same symptoms of recurrent nausea, vomiting and abdominal pain. She often presents with tachycardia because she presents with several day history of vomiting episodes. Patient states that this recurrent nausea vomiting abdominal pain began 4 days ago. Patient has a history of gastroesophageal reflux disease, chronic recurrent pancreatitis, and hypertension. Patient has a primary care physician who is Dr. Khan. She also sees a Dr. Lai for her gastroenterology care in [facility]. (BUBBA WANG) Allergies/Adverse Reactions: Penicillins Adverse Reaction (Mild, Verified 07/16/21 16:09) Rash pt states she is not had problems with antibitics related to pcn as an adult Home Medications: Metoprolol Tartrate 50 mg [Lopressor 50 MG] 100 mg PO BID 11/04/20 [History] Omeprazole 20 mg PO DAILY PRN PRN 11/04/20 [History] Hydrocodone/Acetaminophen [Hydrocodone-Acetamin 10-325 mg^^^] 1 tab PO Q4HPRN PRN 01/25/21 [History] Benazepril HCl 10 mg [Lotensin 10 MG] 20 mg PO DAILY 03/22/21 [History] Buspirone HCl [Buspar] 10 mg PO BID 03/22/21 [History] Amlodipine Besylate 5 mg PO DAILY 06/23/21 [History] Ondansetron ODT 4 MG [Zofran Odt 4 mg] 4 mg PO Q6H PRN PRN 07/16/21 [ History] Travel Risk - International Travel Have you traveled outside of the country in past 3 weeks: No - Coronavirus Screening Are you exhibiting any of the following symptoms?: Yes Symptoms: Vomiting/Diarrhea Close contact with a COVID-19 positive Pt in past 14-21 Days: No - Vaccine Status Have you recieved a Covid-19 vaccination: Yes 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 - Vaccination Dates Date of 2cond Vaccination (if applicable): unknown <BUBBA WANG - Last Filed: 07/16/21 18:53> - Review of Systems Constitutional: Weakness Eyes: No Symptoms Ears, Nose, & Throat: No Symptoms Respiratory: No Symptoms Cardiac: Chest Pain Abdominal/Gastrointestinal: Abdominal Pain, Nausea, Vomiting, Appetite Changes, No Diarrhea, No Constipation Genitourinary Symptoms: No Symptoms Musculoskeletal: No Symptoms Skin: No Symptoms Neurological: No Symptoms Psychological: No Symptoms Endocrine: No Symptoms Hematologic/Lymphatic: No Symptoms Immunological/Allergic: No Symptoms All Other Systems: Reviewed and Negative <BUBBA WANG - Last Filed: 07/16/21 18:53> - Past Medical History Pertinent Past Medical History: Yes Neurological History: No Pertinent History ENT History: No Pertinent History Cardiac History: Hypertension Respiratory History: No Pertinent History Endocrine Medical History: No Pertinent History Musculoskeletal History: No Pertinent History GI Medical History: Pancreatitis History: No Pertinent History Psycho-Social History: No Pertinent History Female Reproductive Disorders: Endometriosis Other Medical History: . - Past Surgical History Past Surgical History: Yes Neuro Surgical History: No Pertinent History Cardiac: No Pertinent History Respiratory: No Pertinent History Gastrointestinal: Appendectomy, Cholecystectomy Genitourinary: No Pertinent History Musculoskeletal: No Pertinent History Female Surgical History: No Pertinent History Other Surgical History: exploratory laparoscopy per Dr Hidalgo 2014- negative, wisdom teeth. NG tube placed for home feedings on 06-17-21 - Social History Smoking Status: Current every day smoker How long have you smoked: 8 years Exposure to second hand smoke: Yes Alcohol Use: Socially Drug Use: none Patient Lives Alone: No Significant Family History: no pertinent family hx <KATHLEENBUBBA NhiTess - Last Filed: 07/16/21 18:53> - Physical Exam General Appearance: mild distress, alert, anxiety Eye Exam: PERRL/EOMI, eyes nml inspection Ears, Nose, Throat Exam: normal ENT inspection, moist mucous membranes Neck Exam: normal inspection, non-tender, supple, full range of motion Respiratory Exam: normal breath sounds, chest tenderness, lungs clear, airway intact, No respiratory distress Cardiovascular Exam: tachycardia Gastrointestinal/Abdomen Exam: soft, normal bowel sounds, tenderness (Diffuse) Pelvic Exam: not done Rectal Exam: not done Back Exam: normal inspection, normal range of motion, No CVA tenderness, No vertebral tenderness Extremity Exam: normal inspection, normal range of motion, pelvis stable Neurologic Exam: alert, oriented x 3, cooperative, policeman II-XII nml as tested, nml cerebellar function, nml station & gait, sensation nml Skin Exam: normal color, warm, dry Lymphatic Exam: No adenopathy SpO2 Interpretation: normal O2 Delivery: Room Air <BUBBA WANG NhiTess - Last Filed: 07/16/21 18:53> - Nursing Vital Signs Nursing Vital Signs: Initial Vital Signs Temperature 98.3 F 07/16/21 15:53 Pulse Rate 132 H 07/16/21 15:53 Respiratory Rate 20 07/16/21 15:53 Blood Pressure 152/111 07/16/21 15:53 O2 Sat by Pulse Oximetry 97 07/16/21 15:53 Pain Scale Pain Intensity 9 - Course Nursing assessment & vital signs reviewed: Yes EKG Interpreted by Me: RATE (126), Sinus Tach, NORMAL AXIS, NORMAL INTERVALS, N ORMAL QRS, NORMAL ST-T, Other (There are no acute ischemic changes on today's EKG. There are no changes when compared to EKG dated 11/05/2020.) <BUBBA WANG NhiTess - Last Filed: 07/16/21 18:53> Ordered Tests: Active Orders 24 hr Category Date Time Status IV Insertion STAT Care 07/16/21 16:02 Active ABDOMEN AND PELVIS W/0 CONTRAS [CT] Stat Exams 07/16/21 18:36 Taken AMYLASE Stat Lab 07/16/21 16:20 Completed CBC W DIFF Stat Lab 07/16/21 16:20 Completed CMP Stat Lab 07/16/21 16:20 Completed LIPASE Stat Lab 07/16/21 16:20 Completed Lactic Acid Stat Lab 07/16/21 16:02 Completed Lactic Acid Stat Lab 07/16/21 18:25 Completed TROPONIN Q3H Lab 07/16/21 16:20 Completed TROPONIN Q3H Lab 07/16/21 19:37 Completed TROPONIN Q3H Lab 07/16/21 22:15 Ordered TROPONIN Q3H Lab 07/17/21 01:15 Ordered TROPONIN Q3H Lab 07/17/21 04:15 Ordered UA W/RFX UR CULTURE Stat Lab 07/16/21 17:53 Completed Medication Summary Generic Name Dose Route Start Last Admin Trade Name Lazaro PRN Reason Stop Dose Admin Potassium Chloride/Sodium Chloride 1,000 mls @ 125 mls/hr 07/16/21 20:45 Sodium Chloride 0.9% W/ 20 Meq Kcl/Liter IV 08/15/21 20:44 .Q8H ANTONIO Levofloxacin/Dextrose 750 mg in 150 mls @ 100 mls/hr 07/16/21 20:44 Levofloxacin 750mg/150ml D5w IV 07/16/21 22:13 STAT STA Metronidazole 500 mg in 100 mls @ 200 mls/hr 07/16/21 20:44 Flagyl 500 Mg Ivpb IV 07/16/21 21:13 STAT STA Discontinued Medications Generic Name Dose Route Start Last Admin Trade Name Lazaro PRN Reason Stop Dose Admin Hydromorphone HCl 1 mg 07/16/21 16:02 07/16/21 16:43 Hydromorphone 1 Mg/Ml Injection IV 07/16/21 16:03 1 mg STAT ONE Administration Hydromorphone HCl Confirm 07/16/21 16:31 Hydromorphone 1 Mg/Ml Injection Administered 07/16/21 16:32 Dose 1 mg .ROUTE .STK-MED ONE Hydromorphone HCl 1 mg 07/16/21 18:06 07/16/21 18:15 Hydromorphone 1 Mg/Ml Injection IV 07/16/21 18:07 1 mg STAT ONE Administration Hydromorphone HCl Confirm 07/16/21 18:12 Hydromorphone 1 Mg/Ml Injection Administered 07/16/21 18:13 Dose 1 mg .ROUTE .STK-MED ONE Hydromorphone HCl 1 mg 07/16/21 20:11 07/16/21 20:28 Hydromorphone 1 Mg/Ml Injection IV 07/16/21 20:12 1 mg STAT ONE Administration Hydromorphone HCl Confirm 07/16/21 20:25 Hydromorphone 1 Mg/Ml Injection Administered 07/16/21 20:26 Dose 1 mg .ROUTE .STK-MED ONE Sodium Chloride 1,000 mls @ 999 mls/hr 07/16/21 16:02 07/16/21 17:52 Sodium Chloride 0.9% 1000 Ml IV 07/16/21 17:02 Infused .Q1H1M STA Infusion Sodium Chloride Confirm 07/16/21 16:31 Sodium Chloride 0.9% 1000 Ml Administered 07/16/21 16:32 Dose 1,000 mls @ ud .ROUTE .STK-MED ONE Sodium Chloride 1,000 mls @ 999 mls/hr 07/16/21 18:06 07/16/21 19:05 Sodium Chloride 0.9% 1000 Ml IV 07/16/21 19:06 Infused .Q1H1M STA Infusion Sodium Chloride Confirm 07/16/21 18:12 Sodium Chloride 0.9% 1000 Ml Administered 07/16/21 18:13 Dose 1,000 mls @ ud .ROUTE .STK-MED ONE Metoclopramide HCl 10 mg 07/16/21 19:54 07/16/21 20:00 Reglan 10 Mg/2 Ml IV 07/16/21 19:55 10 mg STAT ONE Administration Metoclopramide HCl Confirm 07/16/21 19:59 Reglan 10 Mg/2 Ml Administered 07/16/21 20:00 Dose 10 mg .ROUTE .STK-MED ONE Ondansetron HCl 4 mg 07/16/21 16:02 07/16/21 16:42 Zofran 4 Mg/2 Ml Vial IV 07/16/21 16:03 4 mg STAT ONE Administration Ondansetron HCl Confirm 07/16/21 16:30 Zofran 4 Mg/2 Ml Vial Administered 07/16/21 16:31 Dose 4 mg .ROUTE .STK-MED ONE Ondansetron HCl 4 mg 07/16/21 18:06 07/16/21 18:14 Zofran 4 Mg/2 Ml Vial IV 07/16/21 18:07 4 mg STAT ONE Administration Ondansetron HCl Confirm 07/16/21 18:11 Zofran 4 Mg/2 Ml Vial Administered 07/16/21 18:12 Dose 4 mg .ROUTE .STK-MED ONE Lab/Rad Data: Laboratory Result Diagrams 07/16/21 16:20 07/16/21 16:20 Laboratory Results 07/16/21 07/16/21 07/16/21 Range/Units 19:37 18:25 17:53 WBC (4.0-10.5) K/mm3 RBC (4.1-5.4) M/mm3 Hgb (12.0-16.0) gm/dl Hct (35-47) % MCV (78-100) fl MCH (26-32) pg MCHC (32-36) g/dl RDW (11.5-14.0) % Plt Count (150-450) K/mm3 MPV (7.5-11.0) fl Gran % (36.0-66.0) % Eos # (Auto) (0-0.5) Absolute Lymphs (auto) (1.0-4.6) Absolute Monos (auto) (0.0-1.3) Lymphocytes % (24.0-44.0) % Monocytes % (0.0-12.0) % Eosinophils % (0.00-5.0) % Basophils % (0.0-0.4) % Absolute Granulocytes (1.4-6.9) Basophils # (0-0.4) Sodium (137-145) mmol/L Potassium (3.5-5.1) mmol/L Chloride (98-107) mmol/L Carbon Dioxide (22-30) mmol/L Anion Gap (5-15) MEQ/L BUN (7-17) mg/dL Creatinine (0.52-1.04) mg/dL Estimated GFR ML/MIN Glucose (74-106) mg/dL Lactic Acid 3.1 H (0.4-2.0) Calcium (8.4-10.2) mg/dL Total Bilirubin (0.2-1.3) mg/dL AST (14-36) U/L ALT (0-35) U/L Alkaline Phosphatase (38-126) U/L Troponin I < 0.012 (0.000-0.034) ng/mL Serum Total Protein (6.3-8.2) g/dL Albumin (3.5-5.0) g/dL Amylase (30-110) U/L Lipase (23-300) U/L Urine Color ALLYN (YELLOW) Urine Appearance CLOUDY (CLEAR) Urine pH 5.0 (5-6) Ur Specific Crockett 1.026 (1.005-1.025) Urine Protein 100 (Negative) Urine Ketones NEGATIVE (NEGATIVE) Urine Blood NEGATIVE (0-5) Boone/ul Urine Nitrite NEGATIVE (NEGATIVE) Urine Bilirubin NEGATIVE (NEGATIVE) Urine Urobilinogen 2 (0-1) mg/dL Ur Leukocyte Esterase NEGATIVE (NEGATIVE) Urine WBC (Auto) NONE (0-5) /HPF Urine RBC (Auto) NONE (0-2) /HPF U Hyaline Cast (Auto) 11-25 (0-2) /LPF U Epithel Cells (Auto) MODERATE (FEW) /HPF Urine Bacteria (Auto) NONE (NEGATIVE) /HPF Urine Mucus (Auto) SLIGHT (NEGATIVE) /HPF Urine Culture Reflexed NO (NO) Urine Glucose NEGATIVE (NEGATIVE) mg/dL 07/16/21 07/16/21 07/16/21 Range/Units 16:20 16:20 16:20 WBC 26.3 H* (4.0-10.5) K/mm3 RBC 4.52 (4.1-5.4) M/mm3 Hgb 14.5 (12.0-16.0) gm/dl Hct 42.8 (35-47) % MCV 94.7 (78-100) fl MCH 32.1 H (26-32) pg MCHC 33.9 (32-36) g/dl RDW 13.3 (11.5-14.0) % Plt Count 388 (150-450) K/mm3 MPV 10.9 (7.5-11.0) fl Gran % 88.5 H (36.0-66.0) % Eos # (Auto) 0.02 (0-0.5) Absolute Lymphs (auto) 1.79 (1.0-4.6) Absolute Monos (auto) 1.19 (0.0-1.3) Lymphocytes % 6.8 L (24.0-44.0) % Monocytes % 4.5 (0.0-12.0) % Eosinophils % 0.1 (0.00-5.0) % Basophils % 0.1 (0.0-0.4) % Absolute Granulocytes 23.23 H (1.4-6.9) Basophils # 0.02 (0-0.4) Sodium 138 (137-145) mmol/L Potassium 3.3 L (3.5-5.1) mmol/L Chloride 101 (98-107) mmol/L Carbon Dioxide 14 L* (22-30) mmol/L Anion Gap 25.0 H (5-15) MEQ/L BUN 14 (7-17) mg/dL Creatinine 0.72 (0.52-1.04) mg/dL Estimated GFR > 60.0 ML/MIN Glucose 153 H (74-106) mg/dL Lactic Acid (0.4-2.0) Calcium 9.1 (8.4-10.2) mg/dL Total Bilirubin 0.80 (0.2-1.3) mg/dL AST 40 H (14-36) U/L ALT 51 H (0-35) U/L Alkaline Phosphatase 85 (38-126) U/L Troponin I < 0.012 (0.000-0.034) ng/mL Serum Total Protein 8.2 (6.3-8.2) g/dL Albumin 5.0 (3.5-5.0) g/dL Amylase 535 H (30-110) U/L Lipase 3385 H (23-300) U/L Urine Color (YELLOW) Urine Appearance (CLEAR) Urine pH (5-6) Ur Specific Crockett (1.005-1.025) Urine Protein (Negative) Urine Ketones (NEGATIVE) Urine Blood (0-5) Boone/ul Urine Nitrite (NEGATIVE) Urine Bilirubin (NEGATIVE) Urine Urobilinogen (0-1) mg/dL Ur Leukocyte Esterase (NEGATIVE) Urine WBC (Auto) (0-5) /HPF Urine RBC (Auto) (0-2) /HPF U Hyaline Cast (Auto) (0-2) /LPF U Epithel Cells (Auto) (FEW) /HPF Urine Bacteria (Auto) (NEGATIVE) /HPF Urine Mucus (Auto) (NEGATIVE) /HPF Urine Culture Reflexed (NO) Urine Glucose (NEGATIVE) mg/dL 08/25/21 Range/Units 16:02 WBC (4.0-10.5) K/mm3 RBC (4.1-5.4) M/mm3 Hgb (12.0-16.0) gm/dl Hct (35-47) % MCV (78-100) fl MCH (26-32) pg MCHC (32-36) g/dl RDW (11.5-14.0) % Plt Count (150-450) K/mm3 MPV (7.5-11.0) fl Gran % (36.0-66.0) % Eos # (Auto) (0-0.5) Absolute Lymphs (auto) (1.0-4.6) Absolute Monos (auto) (0.0-1.3) Lymphocytes % (24.0-44.0) % Monocytes % (0.0-12.0) % Eosinophils % (0.00-5.0) % Basophils % (0.0-0.4) % Absolute Granulocytes (1.4-6.9) Basophils # (0-0.4) Sodium (137-145) mmol/L Potassium (3.5-5.1) mmol/L Chloride (98-107) mmol/L Carbon Dioxide (22-30) mmol/L Anion Gap (5-15) MEQ/L BUN (7-17) mg/dL Creatinine (0.52-1.04) mg/dL Estimated GFR ML/MIN Glucose (74-106) mg/dL Lactic Acid 4.3 H (0.4-2.0) Calcium (8.4-10.2) mg/dL Total Bilirubin (0.2-1.3) mg/dL AST (14-36) U/L ALT (0-35) U/L Alkaline Phosphatase (38-126) U/L Troponin I (0.000-0.034) ng/mL Serum Total Protein (6.3-8.2) g/dL Albumin (3.5-5.0) g/dL Amylase (30-110) U/L Lipase (23-300) U/L Urine Color (YELLOW) Urine Appearance (CLEAR) Urine pH (5-6) Ur Specific Crockett (1.005-1.025) Urine Protein (Negative) Urine Ketones (NEGATIVE) Urine Blood (0-5) Boone/ul Urine Nitrite (NEGATIVE) Urine Bilirubin (NEGATIVE) Urine Urobilinogen (0-1) mg/dL Ur Leukocyte Esterase (NEGATIVE) Urine WBC (Auto) (0-5) /HPF Urine RBC (Auto) (0-2) /HPF U Hyaline Cast (Auto) (0-2) /LPF U Epithel Cells (Auto) (FEW) /HPF Urine Bacteria (Auto) (NEGATIVE) /HPF Urine Mucus (Auto) (NEGATIVE) /HPF Urine Culture Reflexed (NO) Urine Glucose (NEGATIVE) mg/dL - Progress Progress: improved, pain not gone completely, re-examined Counseled pt/family regarding: lab results, diagnosis, need for follow-up <BUBBA WANG - Last Filed: 07/16/21 18:53> - Progress Discussed with : Rikki Counseled pt/family regarding: rad results <BARRETT JOSEPH - Last Filed: 07/16/21 20:51> - Progress Progress Note: 07/16/21 18:53 I am signing out this patient to Dr. Joseph at shift change. He will make final disposition of this patient. (BUBBA WANG) Patient is checked out to me at shift change from Dr. Wang with pending CT results. Patient presented with abdominal pain/vomiting. Tachycardic on presentation. Given fluid boluses x2 along with pain medications. Work-up showed white count of 26, lipase 3385 with elevated gap and low bicarb finding consistent with dehydration/volume depletion. CT showed moderate diffuse pancreatitis with new small free fluid on preliminary report. I have discussed with Dr. Campos admitting physician on-call, reviewed history, work-up, agreed with starting her on antibiotics along with conservative measures for acute pancreatitis. Plan discussed with patient who understand and agrees with it. 07/16/21 20:45 (BARRETT JOSEPH) - Departure Departure Disposition: Observation Critical Care Time: No <BUBBA WANG - Last Filed: 07/16/21 18:53> - Departure Departure Disposition: In-patient Admission <BARRETT JOSEPH - Last Filed: 07/16/21 20:51> - Departure Clinical Impression: Lactic acidosis Acute pancreatitis Qualifiers: Pancreatitis type: unspecified pancreatitis type Acute pancreatitis complication: unspecified Qualified Code(s): K85.90 - Acute pancreatitis without necrosis or infection, unspecified Nausea & vomiting Qualifiers: Vomiting type: unspecified Vomiting Intractability: non-intractable Qualified Code(s): R11.2 - Nausea with vomiting, unspecified Condition: Stable Referrals: TAMELA KHAN [Primary Care Provider] -
[2021-07-16] MEDS ORDERED: Hydromorphone 1 mg/ml Injection IV ONE ×3 (16:02→20:11)
[2021-07-16] MEDS ORDERED: Zofran 4 MG/2 ML VIAL IV ONE ×2 (16:02→18:06)
[2021-07-16] MEDS ORDERED: Sodium Chloride 0.9% 1000 ML 1,000 ML IV STA ×2 (16:02→18:06)
[2021-07-16 16:27] LABS: Absolute Neutrophil Ct (ANC) 23.23 (1.4-6.9); BASOPHIL % 0.1 % (0.0-0.4); Basophil (Absolute #) 0.02 (0-0.4); Eosinophil % 0.1 % (0.00-5.0); Eosinophil (Absolute #) 0.02 (0-0.5); Hematocrit 42.8 % (35-47); Hemoglobin 14.5 gm/dl (12.0-16.0); Lymphocyte (Absolute #) 1.79 (1.0-4.6); Lymphocytes % 6.8 % (24.0-44.0); Mean Cell Volume 94.7 fl (78-100); Mean Corpuscular Hemoglobin 32.1 pg (26-32); Mean Corpuscular Hgb Concent. 33.9 g/dl (32-36); Mean Platelet Volume 10.9 fl (7.5-11.0); Monocyte (Absolute #) 1.19 (0.0-1.3); Monocytes % 4.5 % (0.0-12.0); Neutrophil % 88.5 % (36.0-66.0); Platelet Count 388 K/mm3 (150-450); Red Blood Count 4.52 M/mm3 (4.1-5.4); Red Cell Distribution Width 13.3 % (11.5-14.0)
[2021-07-16] MEDS ORDERED: Zofran 4 MG/2 ML VIAL ONE ×2 (16:30→18:11)
[2021-07-16] MEDS ORDERED: Sodium Chloride 0.9% 1000 ML 1,000 ML ONE ×2 (16:31→18:12)
[2021-07-16] MEDS ORDERED: Hydromorphone 1 mg/ml Injection ONE ×3 (16:31→20:25)
[2021-07-16 16:45] LABS: ALKALINE PHOSPHATASE 85 U/L (38-126); AMYLASE 535 U/L (30-110); BLOOD UREA NITROGEN 14 mg/dL (7-17); CHLORIDE 101 mmol/L (98-107); Calcium 9.1 mg/dL (8.4-10.2); Creatinine 1 0.72 mg/dL (0.52-1.04); EST GLOMERULAR FILTRATION RATE > 60.0 ML/MIN; Glucose 153 mg/dL (74-106); Potassium 3.3 mmol/L (3.5-5.1); SGOT/AST 40 U/L (14-36); SGPT/ALT 51 U/L (0-35); SODIUM 138 mmol/L (137-145); Total Protein 8.2 g/dL (6.3-8.2)
[2021-07-16 16:56] LABS: Carbon Dioxide 14 mmol/L (22-30); LIPASE 3385 U/L (23-300)
[2021-07-16 16:57] LABS: White Blood Count 26.3 K/mm3 (4.0-10.5)
[2021-07-16 18:24] LABS: Appearance CLOUDY (CLEAR); Bilirubin NEGATIVE (NEGATIVE); Blood NEGATIVE Ery/ul (0-5); Epithelial Cells MODERATE /HPF (FEW); Glucose NEGATIVE (NEGATIVE); Ketones NEGATIVE (NEGATIVE); Leukocyte Esterase NEGATIVE (NEGATIVE); Mucus SLIGHT /HPF (NEGATIVE); Nitrite NEGATIVE (NEGATIVE); Protein,Urine Dip 100 (Negative); Specific Gravity 1.026 (1.005-1.025); Urobilinogen 2 mg/dL (0-1)
[2021-07-16] MEDS ORDERED: Reglan 10 MG/2 ML IV ONE (19:54)
[2021-07-16] MEDS ORDERED: Reglan 10 MG/2 ML ONE (19:59)
[2021-07-16] MEDS ORDERED: LEVOFLOXACIN 750MG/150ML D5W 750 MG/150 ML BAG IV STA (20:44)
[2021-07-16] MEDS ORDERED: FLAGYL 500 MG IVPB 500 MG/100 ML BAG IV STA (20:44)
[2021-07-16] MEDS ORDERED: Sodium Chloride 0.9% W/ 20 mEq KCl/LITER 1,000 ML IV SCH (20:45)
[2021-07-16] MEDS ORDERED: BENADRYL 50 MG/ML IV ONE (22:59)
[2021-07-16] MEDS ORDERED: Inapsine 5 MG/2 ML IV ONE (22:59)
[2021-07-16] MEDS ORDERED: BENADRYL 50 MG/ML ONE (23:00)
[2021-07-16] MEDS ORDERED: Inapsine 5 MG/2 ML ONE (23:02)
[2021-07-16] MEDS ORDERED: Sodium Chloride 0.9% W/ 20 mEq KCl/LITER 1,000 ML IV ONE (23:15)
[2021-07-16] MEDS ORDERED: FLAGYL 500 MG IVPB 500 MG/100 ML BAG IV ONE (23:15)
[2021-07-16] MEDS ORDERED: LEVOFLOXACIN 750MG/150ML D5W 750 MG/150 ML BAG IV ONE (23:15)
[2021-07-17] MEDS ORDERED: MORPHINE SULFATE 4 MG INJ IV PRN (00:44)
[2021-07-17] MEDS ORDERED: FLAGYL 500 MG IVPB 500 MG/100 ML BAG IV STA (00:44)
[2021-07-17] MEDS ORDERED: MORPHINE SULFATE 4 MG INJ ONE (00:47)
[2021-07-17] MEDS: Zofran 4 MG/2 ML VIAL IV PRN ×4 (00:50→21:06)
[2021-07-17] MEDS ORDERED: Hydromorphone 1 mg/ml Injection IV PRN (02:29)
[2021-07-17] MEDS ORDERED: Hydromorphone 1 mg/ml Injection IV ONE (03:53)
[2021-07-17 04:52] LABS: Absolute Neutrophil Ct (ANC) 22.28 (1.4-6.9); BASOPHIL % 0.1 % (0.0-0.4); Basophil (Absolute #) 0.02 (0-0.4); Eosinophil (Absolute #) 0 (0-0.5); Hematocrit 35.8 % (35-47); Hemoglobin 11.8 gm/dl (12.0-16.0); Lymphocyte (Absolute #) 1.34 (1.0-4.6); Lymphocytes % 5.4 % (24.0-44.0); Mean Cell Volume 97.5 fl (78-100); Mean Corpuscular Hemoglobin 32.2 pg (26-32); Mean Platelet Volume 11.4 fl (7.5-11.0); Monocyte (Absolute #) 1.17 (0.0-1.3); Monocytes % 4.7 % (0.0-12.0); Neutrophil % 89.8 % (36.0-66.0); Platelet Count 248 K/mm3 (150-450); Red Blood Count 3.67 M/mm3 (4.1-5.4); Red Cell Distribution Width 13.3 % (11.5-14.0); White Blood Count 24.8 K/mm3 (4.0-10.5)
[2021-07-17 05:19] LABS: ALBUMIN 3.7 g/dL (3.5-5.0); ALKALINE PHOSPHATASE 72 U/L (38-126); ANION GAP 15.6 MEQ/L (5-15); BLOOD UREA NITROGEN 10 mg/dL (7-17); CHLORIDE 105 mmol/L (98-107); Calcium 7.4 mg/dL (8.4-10.2); Carbon Dioxide 19 mmol/L (22-30); Creatinine 1 0.52 mg/dL (0.52-1.04); EST GLOMERULAR FILTRATION RATE > 60.0 ML/MIN; Glucose 122 mg/dL (74-106); Potassium 3.7 mmol/L (3.5-5.1); SGOT/AST 45 U/L (14-36); SGPT/ALT 34 U/L (0-35); SODIUM 136 mmol/L (137-145); Total Protein 6.4 g/dL (6.3-8.2)
[2021-07-17] MEDS: Hydromorphone 1 mg/ml Injection IV PRN ×2 (05:53→07:46)
[2021-07-17] MEDS ORDERED: FLAGYL 500 MG IVPB 500 MG/100 ML BAG IV ONE (06:00)
[2021-07-17 07:19] LABS: AMYLASE 971 U/L (30-110)
[2021-07-17 07:40] LABS: LIPASE 5557 U/L (23-300)
[2021-07-17] MEDS ORDERED: D5W/0.45NS W/ 20mEq KCl 1000 ML 1,000 ML IV ONE (08:26)
[2021-07-17] MEDS ORDERED: PHARMACY DOSING REQUEST MC ONE (08:28)
[2021-07-17] MEDS ORDERED: DILAUDID 1 MG/1ML PCA IV PRN (08:38)
--- NOTE | 2021-07-17 08:44 | XRAY ---
Indication: Midabdomen pain, nausea, and vomiting. History of pancreatitis and endometriosis. Multiple contiguous axial images obtained through the abdomen and pelvis without contrast. Comparison: June 23, 2021. Lung bases are clear again with tiny left lower lobe calcified granuloma. Heart is not enlarged. Noncontrasted stomach and bowel loops appear nonobstructed. Again appendectomy and cholecystectomy. Pancreas now demonstrates moderate diffuse edema with peripancreatic stranding favoring acute pancreatitis. New small free fluid presumed reactive. No walled off fluid collection or free air. A few nonobstructing bilateral renal punctate calculi and tiny splenic calcified granulomas. Again hepatomegaly today measuring 23 cm. Remaining liver, spleen, adrenal glands, kidneys, ureters, bladder, uterus, and aorta are unremarkable for noncontrast exam. Impression: 1. Acute pancreatitis with small free fluid as detailed. 2. Incidental nonobstructing bilateral renal micro-calculi, hepatomegaly, and old granulomatous disease.
[2021-07-17] MEDS ORDERED: APRESOLINE 20 MG/ML INJ IV PRN (09:07)
[2021-07-17] MEDS: D5W/0.45NS W/ 20mEq KCl 1000 ML 1,000 ML IV SCH ×2 (09:37→23:37)
[2021-07-17] MEDS: PROTONIX 40 MG IV IV SCH (09:38)
[2021-07-17] MEDS: VASOTEC I.V. 2.5 MG IV SCH ×2 (09:38→21:05)
[2021-07-17 09:53] LABS: Slide Review 1 YES
[2021-07-17 10:43] LABS: ETHYL ALCOHOL 35 mg/dL (0-10); PROCALCITONIN < 0.030 ng/mL (0.030-0.080)
[2021-07-17] MEDS: FLAGYL 500 MG IVPB 500 MG/100 ML BAG IV SCH ×2 (10:45→17:34)
--- NOTE | 2021-07-17 11:07 | HP ---
ADMITTED: 07/17/2021 CHIEF COMPLAINT: Abdomen pain, nausea and vomiting, history of pancreatitis. HISTORY OF PRESENT ILLNESS: The patient is a 31 y/o WF who presented to the Emergency Room after 3 days of recurrent nausea, vomiting, and abdominal pain. The patient has been in the hospital multiple times for pancreatitis. On the last visit, the patient was sent to [facility] where she was seen by a behavioral health director down there. They apparently attempted to do an ERCP but could not because there was too much swelling. The patient was to return to them actually today to see them in outpatient to reconsider doing the ERCP. However, in the meantime, had a recurrence of her pancreatitis. The patient reports last time she was down there, they placed an [place] tube, but through all the vomiting she has had she actually brought the tube up through her mouth and nose and pulled the tube out. PAST MEDICAL HISTORY: The patient's medical history is otherwise significant for endometriosis. She has had appendectomy and cholecystectomy performed. She had exploratory laparoscopy by Dr. David Hidalgo in 2014. HOME MEDICATIONS: Currently are metoprolol 100 mg bid, omeprazole 20 mg a day. She takes Hydrocodone 10/325 PRN for pain, benazepril 10 mg tablets 20 mg q d, buspirone 10 mg bid, amlodipine 5 mg q d, and Zofran 4 mg on a q 6 h PRN basis for nausea. ALLERGIES: SHE HAD REPORTED ALLERGIES TO [facility]. PHYSICIAN EXAM: The patient's vital signs on admission showed a temperature of 98.3, pulse 132, respiratory rate 20, BP 152/111, O2 sat was 97%. HEENT: Normocephalic and atraumatic. Pupils equal, round, and reactive to light. EOM intact. Oropharynx is dry. NECK: Supple without lymphadenopathy, thyromegaly, or JVD. CHEST: Clear to auscultation. HEART: Regular rate and rhythm without murmurs, rubs, or gallops. ABDOMEN: Diffusely tender particularly in the epigastric region. No masses. No guarding or rebound. EXTREMITIES: Without cyanosis, clubbing, or edema. NEURO: The patient neurologically is alert and oriented X 3 with no focal deficits noted. LABORATORY DATA: The patient's laboratory studies on admission showed troponin less than 0.012. WBC was 26,300, Hgb was 14.5, platelet count is 388,000. Her CMP showed her glucose to be 153, BUN 14, creatinine 0.72, and potassium slightly low at 3.3. CO2 was 14. AST was 40, ALT was 51, amylase 535, lipase 3385. UA was specific gravity 1.026 and otherwise showed 11-25 hyaline casts. Lactic acid initially was 4.3 and after fluids is 3.1. She was given antibiotics in the Emergency Room. We will check the procalcitonin level and continue her Levaquin and Flagyl for the potential of concern for developing sepsis. The patient's CT scan compared to numerous priors most recently 01/12 showed moderate worsening diffuse pancreatitis with new small free fluid, nonobstructing bilateral renal microcalculi, and a 25 cm fatty hepatomegaly. ASSESSMENT AND PLAN: The patient is now placed NPO. She will be placed on a Dilaudid EVP STRATEGY pump for pain control. She is given IV fluids of D5 NS at 150 cc/h. We will attempt to contact her GI specialist at [facility] and see if they potentially would take her in transfer for further higher level of GI evaluation. She will continue on her IV Protonix as well and due to her hypertension, will give her 2.5 of Vasotec IV daily and PRN Hydralazine for significant elevations in her BP.
[2021-07-17] MEDS: LOPRESSOR 5 MG/5 ML INJECTION IV SCH ×3 (12:02→23:33)
[2021-07-17] MEDS: LEVOFLOXACIN 750MG/150ML D5W 750 MG/150 ML BAG IV SCH (18:10)
[2021-07-18] MEDS: FLAGYL 500 MG IVPB 500 MG/100 ML BAG IV SCH ×3 (03:18→17:22)
[2021-07-18] MEDS: LOPRESSOR 5 MG/5 ML INJECTION IV SCH ×4 (05:46→23:06)
[2021-07-18 05:52] LABS: Absolute Neutrophil Ct (ANC) 10.57 (1.4-6.9); BASOPHIL % 0.1 % (0.0-0.4); Basophil (Absolute #) 0.01 (0-0.4); Eosinophil % 0.5 % (0.00-5.0); Eosinophil (Absolute #) 0.07 (0-0.5); Hematocrit 33.7 % (35-47); Hemoglobin 10.8 gm/dl (12.0-16.0); Lymphocyte (Absolute #) 1.71 (1.0-4.6); Lymphocytes % 13.4 % (24.0-44.0); Mean Cell Volume 98.5 fl (78-100); Mean Corpuscular Hemoglobin 31.6 pg (26-32); Mean Platelet Volume 12.1 fl (7.5-11.0); Monocyte (Absolute #) 0.44 (0.0-1.3); Monocytes % 3.4 % (0.0-12.0); Neutrophil % 82.6 % (36.0-66.0); Platelet Count 144 K/mm3 (150-450); Red Blood Count 3.42 M/mm3 (4.1-5.4); Red Cell Distribution Width 13.1 % (11.5-14.0); White Blood Count 12.8 K/mm3 (4.0-10.5)
[2021-07-18] MEDS: Zofran 4 MG/2 ML VIAL IV PRN ×4 (06:07→22:59)
[2021-07-18 06:23] LABS: ALBUMIN 3.2 g/dL (3.5-5.0); ALKALINE PHOSPHATASE 87 U/L (38-126); AMYLASE 280 U/L (30-110); ANION GAP 11.9 MEQ/L (5-15); BLOOD UREA NITROGEN 4 mg/dL (7-17); CHLORIDE 102 mmol/L (98-107); Calcium 7.8 mg/dL (8.4-10.2); Carbon Dioxide 23 mmol/L (22-30); Creatinine 1 0.44 mg/dL (0.52-1.04); EST GLOMERULAR FILTRATION RATE > 60.0 ML/MIN; Glucose 97 mg/dL (74-106); LIPASE 713 U/L (23-300); Potassium 3.6 mmol/L (3.5-5.1); SGOT/AST 20 U/L (14-36); SGPT/ALT 21 U/L (0-35); SODIUM 134 mmol/L (137-145); Total Protein 6.1 g/dL (6.3-8.2)
[2021-07-18] MEDS: D5W/0.45NS W/ 20mEq KCl 1000 ML 1,000 ML IV SCH ×3 (07:36→22:59)
[2021-07-18] MEDS: PROTONIX 40 MG IV IV SCH (09:18)
[2021-07-18] MEDS: Hydromorphone 1 mg/ml Injection IV PRN ×7 (09:24→23:00)
[2021-07-18] MEDS: VASOTEC I.V. 2.5 MG IV SCH ×2 (09:42→21:01)
[2021-07-18] MEDS: LEVOFLOXACIN 750MG/150ML D5W 750 MG/150 ML BAG IV SCH (18:27)
[2021-07-19] MEDS: Hydromorphone 1 mg/ml Injection IV PRN ×8 (01:34→19:47)
[2021-07-19] MEDS: FLAGYL 500 MG IVPB 500 MG/100 ML BAG IV SCH ×3 (01:35→18:42)
[2021-07-19] MEDS: Zofran 4 MG/2 ML VIAL IV PRN ×2 (04:41→12:57)
[2021-07-19] MEDS: LOPRESSOR 5 MG/5 ML INJECTION IV SCH ×3 (06:07→18:42)
[2021-07-19 06:09] LABS: ALBUMIN 3.2 g/dL (3.5-5.0); ALKALINE PHOSPHATASE 128 U/L (38-126); AMYLASE 111 U/L (30-110); ANION GAP 11.7 MEQ/L (5-15); BLOOD UREA NITROGEN 3 mg/dL (7-17); CHLORIDE 103 mmol/L (98-107); Calcium 8.1 mg/dL (8.4-10.2); Carbon Dioxide 23 mmol/L (22-30); Creatinine 1 0.41 mg/dL (0.52-1.04); EST GLOMERULAR FILTRATION RATE > 60.0 ML/MIN; Glucose 104 mg/dL (74-106); LIPASE 293 U/L (23-300); Potassium 3.5 mmol/L (3.5-5.1); SGOT/AST 18 U/L (14-36); SGPT/ALT 16 U/L (0-35); SODIUM 134 mmol/L (137-145)
[2021-07-19] MEDS: D5W/0.45NS W/ 20mEq KCl 1000 ML 1,000 ML IV SCH ×2 (06:15→15:03)
[2021-07-19 06:33] LABS: Absolute Neutrophil Ct (ANC) 8.68 (1.4-6.9); BASOPHIL % 0.1 % (0.0-0.4); Basophil (Absolute #) 0.01 (0-0.4); Eosinophil % 1.2 % (0.00-5.0); Eosinophil (Absolute #) 0.13 (0-0.5); Hematocrit 30.6 % (35-47); Hemoglobin 9.8 gm/dl (12.0-16.0); Lymphocyte (Absolute #) 1.26 (1.0-4.6); Lymphocytes % 12.1 % (24.0-44.0); Mean Cell Volume 100.3 fl (78-100); Mean Corpuscular Hemoglobin 32.1 pg (26-32); Mean Platelet Volume 12.7 fl (7.5-11.0); Monocyte (Absolute #) 0.33 (0.0-1.3); Monocytes % 3.2 % (0.0-12.0); Neutrophil % 83.4 % (36.0-66.0); Platelet Count 138 K/mm3 (150-450); Red Blood Count 3.05 M/mm3 (4.1-5.4); Red Cell Distribution Width 13.2 % (11.5-14.0); White Blood Count 10.4 K/mm3 (4.0-10.5)
[2021-07-19] MEDS: PROTONIX 40 MG IV IV SCH (10:36)
[2021-07-19] MEDS: VASOTEC I.V. 2.5 MG IV SCH ×2 (10:36→22:10)
[2021-07-19] MEDS: Carafate 1 GM PO SCH ×3 (12:58→22:10)
--- NOTE | 2021-07-19 13:01 | PCM.NOTE ---
Date and Time: 07/19/21 1256 Subjective Assessment: Patient has improved and is ready to try toast or pasta or potatoe. She has been drinking broth and fluids without N/V. She still has upper abd pain Right side and epigastrium. BM no diarrhea. Is ready to get help with her binge drinking. [facility] did a Telehealth visit last evening. Pain meds reduced and discussed with patient. Objective Exam General Appearance: no apparent distress Neurologic Exam: alert, oriented x 3 Skin Exam: normal color, warm, other (no jaudice) Eye Exam: eyes nml inspection Respiratory Exam: normal breath sounds Cardiovascular Exam: regular rate/rhythm (mario 90) Gastrointestinal/Abdomen Exam: soft, normal bowel sounds, tenderness (epigastrium and RUQ) OBJECTIVE DATA Vital Signs: Vital Signs - 24 hr Temp Pulse Resp BP Pulse Ox 07/19/21 12:00 97.3 F 98 H 16 153/89 96 07/19/21 08:00 98.0 F 89 18 133/76 96 07/19/21 03:47 98.0 F 83 16 132/77 98 07/18/21 23:34 98.6 F 72 18 129/91 98 07/18/21 19:03 98.7 F 114 H 20 132/85 96 07/18/21 16:00 99.0 F 103 H 19 150/89 98 Pain Assessment - Last Documented Pain Intensity 8 Pain Scale Used 0-10 Pain Scale Intake and Output: Intake & Output 07/17/21 07/18/21 07/19/21 07/20/21 11:59 11:59 11:59 11:59 Intake Total 0 3542 4084 Output Total 400 2900 1300 Balance -437 007 2772 Weight 65.7 kg 65.9 kg 66 kg Lab Results: Lab Results-Last 24 Hours 07/18/21 07/18/21 07/19/21 Range/Units 15:31 20:56 05:25 WBC 10.4 (4.0-10.5) K/mm3 RBC 3.05 L (4.1-5.4) M/mm3 Hgb 9.8 L (12.0-16.0) gm/dl Hct 30.6 L (35-47) % MCV 100.3 H (78-100) fl MCH 32.1 H (26-32) pg MCHC 32.0 (32-36) g/dl RDW 13.2 (11.5-14.0) % Plt Count 138 L (150-450) K/mm3 MPV 12.7 H (7.5-11.0) fl Gran % 83.4 H (36.0-66.0) % Eos # (Auto) 0.13 (0-0.5) Absolute Lymphs (auto) 1.26 (1.0-4.6) Absolute Monos (auto) 0.33 (0.0-1.3) Lymphocytes % 12.1 L (24.0-44.0) % Monocytes % 3.2 (0.0-12.0) % Eosinophils % 1.2 (0.00-5.0) % Basophils % 0.1 (0.0-0.4) % Absolute Granulocytes 8.68 H (1.4-6.9) Basophils # 0.01 (0-0.4) Sodium (137-145) mmol/L Potassium (3.5-5.1) mmol/L Chloride (98-107) mmol/L Carbon Dioxide (22-30) mmol/L Anion Gap (5-15) MEQ/L BUN (7-17) mg/dL Creatinine (0.52-1.04) mg/dL Estimated GFR ML/MIN Glucose (74-106) mg/dL POC Glucometer 97 85 (74 to 106) mg/dL Calcium (8.4-10.2) mg/dL Total Bilirubin (0.2-1.3) mg/dL AST (14-36) U/L ALT (0-35) U/L Alkaline Phosphatase (38-126) U/L Serum Total Protein (6.3-8.2) g/dL Albumin (3.5-5.0) g/dL Amylase (30-110) U/L Lipase (23-300) U/L 07/19/21 07/19/21 07/19/21 Range/Units 05:25 07:59 11:39 WBC (4.0-10.5) K/mm3 RBC (4.1-5.4) M/mm3 Hgb (12.0-16.0) gm/dl Hct (35-47) % MCV (78-100) fl MCH (26-32) pg MCHC (32-36) g/dl RDW (11.5-14.0) % Plt Count (150-450) K/mm3 MPV (7.5-11.0) fl Gran % (36.0-66.0) % Eos # (Auto) (0-0.5) Absolute Lymphs (auto) (1.0-4.6) Absolute Monos (auto) (0.0-1.3) Lymphocytes % (24.0-44.0) % Monocytes % (0.0-12.0) % Eosinophils % (0.00-5.0) % Basophils % (0.0-0.4) % Absolute Granulocytes (1.4-6.9) Basophils # (0-0.4) Sodium 134 L (137-145) mmol/L Potassium 3.5 (3.5-5.1) mmol/L Chloride 103 (98-107) mmol/L Carbon Dioxide 23 (22-30) mmol/L Anion Gap 11.7 (5-15) MEQ/L BUN 3 L (7-17) mg/dL Creatinine 0.41 L (0.52-1.04) mg/dL Estimated GFR > 60.0 ML/MIN Glucose 104 (74-106) mg/dL POC Glucometer 97 73 L (74 to 106) mg/dL Calcium 8.1 L (8.4-10.2) mg/dL Total Bilirubin 0.80 (0.2-1.3) mg/dL AST 18 (14-36) U/L ALT 16 (0-35) U/L Alkaline Phosphatase 128 H (38-126) U/L Serum Total Protein 6.0 L (6.3-8.2) g/dL Albumin 3.2 L (3.5-5.0) g/dL Amylase 111 H (30-110) U/L Lipase 293 (23-300) U/L Assessment/Plan (1) Acute pancreatitis Current Visit: Yes Status: Acute Qualifiers: Pancreatitis type: alcohol induced Acute pancreatitis complication: unspecified Qualified Code(s): K85.20 - Alcohol induced acute pancreatitis without necrosis or infection Assessment & Plan: Improved. Has tolerated clear liquids. Still in pain but right sided. Amylase and Lipase are wnl today.Advance diet to add starch-toast or pasta or potatoe. Is S/P cholecystectomy 15 years ago (patient states no stone Hx) Is on Flagyl and Levaquin. Note - reviewed MRCP APRIL 2021 bile ducts normal. Prominent pancreas with with edema. Homogenous cystic mass 8.2 cm x 3.7 cm cystic mass. Code(s): K85.90 - ACUTE PANCREATITIS WITHOUT NECROSIS OR INFECTION, UNSP (2) Abdominal mass, left upper quadrant Current Visit: Yes Status: Chronic Assessment & Plan: Noted in MRCP 05/19/21 8.2 x 3.7 cm cystic mass between the stomach and spleen. Code(s): R19.02 - LEFT UPPER QUADRANT ABDOMINAL SWELLING, MASS AND LUMP (3) Acute right flank pain Current Visit: No Status: Acute Code(s): R10.9 - UNSPECIFIED ABDOMINAL PAIN (4) Leukocytosis Current Visit: Yes Status: Resolved Assessment & Plan: WBC on admission was 26,300 and now 10,400 - improved on Levaquin and Flagyl Code(s): D72.829 - ELEVATED WHITE BLOOD CELL COUNT, UNSPECIFIED (5) AA (alcohol abuse) Current Visit: Yes Status: Acute Code(s): F10.10 - ALCOHOL ABUSE, UNCOMPLICATED
[2021-07-19] MEDS: Zanaflex 4 MG PO PRN ×2 (17:16→22:11)
[2021-07-19] MEDS: ULTRAM 50 MG PO PRN ×2 (17:16→22:11)
[2021-07-19] MEDS: LEVOFLOXACIN 750MG/150ML D5W 750 MG/150 ML BAG IV SCH (19:48)
[2021-07-20] MEDS: Hydromorphone 1 mg/ml Injection IV PRN ×2 (00:26→06:01)
[2021-07-20] MEDS: LOPRESSOR 5 MG/5 ML INJECTION IV SCH ×3 (00:26→12:20)
[2021-07-20] MEDS: D5W/0.45NS W/ 20mEq KCl 1000 ML 1,000 ML IV SCH (03:06)
[2021-07-20] MEDS: FLAGYL 500 MG IVPB 500 MG/100 ML BAG IV SCH ×2 (03:06→10:25)
[2021-07-20] MEDS: Zanaflex 4 MG PO PRN ×2 (03:11→07:55)
[2021-07-20] MEDS: ULTRAM 50 MG PO PRN ×3 (03:12→12:26)
[2021-07-20] MEDS: Zofran 4 MG/2 ML VIAL IV PRN (03:15)
[2021-07-20] MEDS: Carafate 1 GM PO SCH ×2 (07:52→12:20)
[2021-07-20] MEDS ORDERED: Zanaflex 4 MG PO PRN (09:12)
[2021-07-20] MEDS ORDERED: Zanaflex 4 MG PO ONE (09:47)
[2021-07-20] MEDS: VASOTEC I.V. 2.5 MG IV SCH (10:07)
[2021-07-20] MEDS: PROTONIX 40 MG IV IV SCH (10:25)
[2021-07-20 10:50] LABS: Absolute Neutrophil Ct (ANC) 6.09 (1.4-6.9); BASOPHIL % 0.1 % (0.0-0.4); Basophil (Absolute #) 0.01 (0-0.4); Eosinophil % 2.2 % (0.00-5.0); Eosinophil (Absolute #) 0.17 (0-0.5); Hematocrit 33.7 % (35-47); Hemoglobin 10.6 gm/dl (12.0-16.0); Lymphocyte (Absolute #) 1.16 (1.0-4.6); Lymphocytes % 14.8 % (24.0-44.0); Mean Cell Volume 103.7 fl (78-100); Mean Corpuscular Hemoglobin 32.6 pg (26-32); Mean Corpuscular Hgb Concent. 31.5 g/dl (32-36); Mean Platelet Volume 11.7 fl (7.5-11.0); Monocyte (Absolute #) 0.39 (0.0-1.3); Neutrophil % 77.9 % (36.0-66.0); Platelet Count 145 K/mm3 (150-450); Red Blood Count 3.25 M/mm3 (4.1-5.4); Red Cell Distribution Width 13.3 % (11.5-14.0); White Blood Count 7.8 K/mm3 (4.0-10.5)
[2021-07-20 11:13] LABS: ALBUMIN 3.2 g/dL (3.5-5.0); ALKALINE PHOSPHATASE 183 U/L (38-126); AMYLASE 89 U/L (30-110); ANION GAP 14.4 MEQ/L (5-15); CHLORIDE 104 mmol/L (98-107); Calcium 8.9 mg/dL (8.4-10.2); Carbon Dioxide 22 mmol/L (22-30); Creatinine 1 0.35 mg/dL (0.52-1.04); EST GLOMERULAR FILTRATION RATE > 60.0 ML/MIN; Glucose 119 mg/dL (74-106); LIPASE 506 U/L (23-300); Potassium 3.9 mmol/L (3.5-5.1); SGOT/AST 21 U/L (14-36); SGPT/ALT 14 U/L (0-35); SODIUM 136 mmol/L (137-145)
[2021-07-20 11:20] LABS: BLOOD UREA NITROGEN < 2 mg/dL (7-17)
[2021-07-20 11:51] VITALS: BP 127/87; PULSE 94; O2SAT 99
--- NOTE | 2021-07-20 11:57 | PCM.DS ---
Discharge Summary Date of Admission: 07/17/21 00:44 Date of Discharge: 07/20/21 Admitting Physician: TAMELA KHAN Consults: Consults on Case 07/18/21 11:14 Consult Tele-Health [Tele-Health Consult] ROUTINE 07/19/21 13:42 Consult Surgery ROUTINE Primary Care Provider: TAMELA KHAN Allergies Allergies Penicillins Adverse Reaction (Mild, Verified 07/17/21 01:29) Rash pt states she is not had problems with antibitics related to pcn as an adult Hospital Summary - Hospital Course Hospital Course: Patient is a 31 yr old female with Hx recurrent pancreatitis followed by Dr Khan,PCP. S/P cholecystectomy as a teenager. Admits to binge drinking. Lives at home with and [id number] and they are supportive ,neither drink alcohol. Was admitted through ER to Med surg for pain control and IV hydration and management of acute pancreatitis. WBC was 26,300 on admission and today is 7.800,treated with IV Levaquin and Flagyl. MRCP end of APRIL 2021 showed pancreatitis and an upper abdominal cyst 8cm x 3.[address] David Hidalgo consulted ,will follow as outpatient. [facility] Telehealth visit advised outpatient counceling . Also Info on Casie Sharp was given. Patient follows with Pain Management, Dr Myers ,[facility]- states she has Hydrocodone meds at home. - Vitals & Intake/Output Vital Signs: Vital Signs Temperature 97.3 F 07/20/21 08:00 Pulse Rate 84 07/20/21 08:00 Respiratory Rate 16 07/20/21 08:00 Blood Pressure 147/77 07/20/21 08:00 O2 Sat by Pulse Oximetry 96 07/20/21 08:00 Intake & Output: Intake & Output 07/17/21 07/18/21 07/19/21 07/20/21 11:59 11:59 11:59 11:59 Intake Total 0 3542 4084 4699 Output Total 400 2900 1300 2000 Balance -644 639 1504 2699 Weight 65.7 kg 65.9 kg 66 kg 67.3 kg - Lab Result Diagrams: 07/20/21 10:35 07/20/21 10:35 Lab Results-Last 24 Hrs: Lab Results-Last 24 Hours 07/19/21 07/19/21 07/20/21 Range/Units 16:02 21:08 07:23 WBC (4.0-10.5) K/mm3 RBC (4.1-5.4) M/mm3 Hgb (12.0-16.0) gm/dl Hct (35-47) % MCV (78-100) fl MCH (26-32) pg MCHC (32-36) g/dl RDW (11.5-14.0) % Plt Count (150-450) K/mm3 MPV (7.5-11.0) fl Gran % (36.0-66.0) % Eos # (Auto) (0-0.5) Absolute Lymphs (auto) (1.0-4.6) Absolute Monos (auto) (0.0-1.3) Lymphocytes % (24.0-44.0) % Monocytes % (0.0-12.0) % Eosinophils % (0.00-5.0) % Basophils % (0.0-0.4) % Absolute Granulocytes (1.4-6.9) Basophils # (0-0.4) Sodium (137-145) mmol/L Potassium (3.5-5.1) mmol/L Chloride (98-107) mmol/L Carbon Dioxide (22-30) mmol/L Anion Gap (5-15) MEQ/L BUN (7-17) mg/dL Creatinine (0.52-1.04) mg/dL Estimated GFR ML/MIN Glucose (74-106) mg/dL POC Glucometer 114 H 104 93 (74 to 106) mg/dL Calcium (8.4-10.2) mg/dL Total Bilirubin (0.2-1.3) mg/dL AST (14-36) U/L ALT (0-35) U/L Alkaline Phosphatase (38-126) U/L Serum Total Protein (6.3-8.2) g/dL Albumin (3.5-5.0) g/dL Amylase (30-110) U/L Lipase (23-300) U/L 07/20/21 07/20/21 07/20/21 Range/Units 10:35 10:35 11:40 WBC 7.8 (4.0-10.5) K/mm3 RBC 3.25 L (4.1-5.4) M/mm3 Hgb 10.6 L (12.0-16.0) gm/dl Hct 33.7 L (35-47) % MCV 103.7 H (78-100) fl MCH 32.6 H (26-32) pg MCHC 31.5 L (32-36) g/dl RDW 13.3 (11.5-14.0) % Plt Count 145 L (150-450) K/mm3 MPV 11.7 H (7.5-11.0) fl Gran % 77.9 H (36.0-66.0) % Eos # (Auto) 0.17 (0-0.5) Absolute Lymphs (auto) 1.16 (1.0-4.6) Absolute Monos (auto) 0.39 (0.0-1.3) Lymphocytes % 14.8 L (24.0-44.0) % Monocytes % 5.0 (0.0-12.0) % Eosinophils % 2.2 (0.00-5.0) % Basophils % 0.1 (0.0-0.4) % Absolute Granulocytes 6.09 (1.4-6.9) Basophils # 0.01 (0-0.4) Sodium 136 L (137-145) mmol/L Potassium 3.9 (3.5-5.1) mmol/L Chloride 104 (98-107) mmol/L Carbon Dioxide 22 (22-30) mmol/L Anion Gap 14.4 (5-15) MEQ/L BUN < 2 L (7-17) mg/dL Creatinine 0.35 L (0.52-1.04) mg/dL Estimated GFR > 60.0 ML/MIN Glucose 119 H (74-106) mg/dL POC Glucometer 95 (74 to 106) mg/dL Calcium 8.9 (8.4-10.2) mg/dL Total Bilirubin 0.40 (0.2-1.3) mg/dL AST 21 (14-36) U/L ALT 14 (0-35) U/L Alkaline Phosphatase 183 H (38-126) U/L Serum Total Protein 6.0 L (6.3-8.2) g/dL Albumin 3.2 L (3.5-5.0) g/dL Amylase 89 (30-110) U/L Lipase 506 H (23-300) U/L Micro Results-Entire Visit: Accuchecks Date 07/20/21 Date 07/19/21 Time 07:23 Discharge Exam General Appearance: no apparent distress Neurologic Exam: alert, oriented x 3, cooperative, normal mood/affect Eye Exam: eyes nml inspection Respiratory Exam: normal breath sounds Cardiovascular Exam: regular rate/rhythm Gastrointestinal/Abdomen Exam: soft, normal bowel sounds (minimal tenderness across upper abdomen) Back Exam: normal inspection Final Diagnosis/Problem List - Final Discharge Diagnosis/Problem (1) Acute pancreatitis Current Visit: Yes Status: Resolved Assessment & Plan: amylase and lipase near normal,tolerated biscuit and gravy breakfast today. Code(s): K85.90 - ACUTE PANCREATITIS WITHOUT NECROSIS OR INFECTION, UNSP (2) Abdominal mass, left upper quadrant Current Visit: Yes Status: Chronic Assessment & Plan: Dr David Hidalgo reviewed and will follow as outpatient. Code(s): R19.02 - LEFT UPPER QUADRANT ABDOMINAL SWELLING, MASS AND LUMP (3) Acute right flank pain Current Visit: No Status: Resolved Code(s): R10.9 - UNSPECIFIED ABDOMINAL PAIN (4) Leukocytosis Current Visit: Yes Status: Resolved Code(s): D72.829 - ELEVATED WHITE BLOOD CELL COUNT, UNSPECIFIED (5) AA (alcohol abuse) Current Visit: Yes Status: Acute Assessment & Plan: [facility] will follow as outpatient. Code(s): F10.10 - ALCOHOL ABUSE, UNCOMPLICATED - Discharge Disposition: Home, Self-Care Condition: Stable Prescriptions: Continue Metoprolol Tartrate 50 mg [Lopressor 50 MG] 100 mg PO BID Omeprazole 20 mg PO DAILY Hydrocodone/Acetaminophen [Hydrocodone-Acetamin 10-325 mg^^^] 1 tab PO Q4HPRN PRN PRN Reason: Pain Buspirone HCl [Buspar] 10 mg PO BID Benazepril HCl 10 mg [Lotensin 10 MG] 20 mg PO DAILY Amlodipine Besylate 5 mg PO DAILY Ondansetron ODT 4 MG [Zofran Odt 4 mg] 4 mg PO Q6H PRN PRN PRN Reason: Vomiting Additional Instructions: [facility] in [place] Follow up with: TAMELA KHAN [Primary Care Provider] - DAVID HIDALGO [ACTIVE STAFF] - (FOLLOW UP IN 6-8 WEEKS AFTER DISCHARGE )
--- NOTE | 2021-07-21 14:16 | CONS ---
DATE: 07/20/2021 HISTORY: Her chart is reviewed. She has a pancreatic cyst. I do not think much of this at this time. It is about 5 x 3 cm. It is unclear whether this is new or if it has been there a while. There was no study to compare it to. She has had an episode of pancreatitis. She has episodes of pancreatitis. She has recurrent chronic pancreatitis disease. PLAN: We will see her back in the office in six to eight weeks but sometime in three to four months we will repeat either an ultrasound with CT and see whether this is growing or changing or what is happening with this cyst but initially here it looks like an uncomplicated cyst that initially just needs observed. It may eventually need drained depending on its course.
== END 2021-07-20 13:27 | disposition home or self-care (01) | DRG 439 ==
LOC: ED 15:52 → MED SURG 07-17 00:44
PROVIDERS: ADMIT Family Medicine; ATTEND Family Medicine
DX: K85.90 Acute pancreatitis without necrosis or infection, unspecified (principal); K86.2 Cyst of pancreas; R11.2 Nausea with vomiting, unspecified; R07.9 Chest pain, unspecified; Z79.899 Other long term (current) drug therapy; R19.7 Diarrhea, unspecified; I10 Essential (primary) hypertension; R19.02 Left upper quadrant abdominal swelling, mass and lump; D72.829 Elevated white blood cell count, unspecified; R10.9 Unspecified abdominal pain; K76.0 Fatty (change of) liver, not elsewhere classified; F10.10 Alcohol abuse, uncomplicated; Z20.822 Contact with and (suspected) exposure to COVID-19
CPT/HCPCS: 36000; 36415; 74176; 80053; 80307; 81001; 82150; 82947; 82977; 83605; 83690; 84145; 84484; 85025; 90791; 96360; 96361; 96374; 96375; 96376; 99285; J1170; J1200; J1956; J2270; J2405; Q3014; U0003; A9270-GY; G0480

== ENCOUNTER 2021-08-02 11:07 | Observation (INO) | payer OTHER ==
[2021-08-02] MEDS ORDERED: Sodium Chloride 0.9% 1000 ML 1,000 ML IV STA (11:54)
[2021-08-02] MEDS ORDERED: Inapsine 5 MG/2 ML IV ONE (11:54)
[2021-08-02] MEDS ORDERED: Compazine 10 MG/2 ML IV ONE (11:54)
[2021-08-02] MEDS ORDERED: PROTONIX 40 MG IV IV ONE ×2 (11:54→12:15)
[2021-08-02 12:13] LABS: BASOPHIL % 0.2 % (0.0-0.4); Basophil (Absolute #) 0.04 (0-0.4); Eosinophil % 0.4 % (0.00-5.0); Eosinophil (Absolute #) 0.08 (0-0.5); Hematocrit 39.9 % (35-47); Hemoglobin 12.7 gm/dl (12.0-16.0); Lymphocyte (Absolute #) 2.11 (1.0-4.6); Lymphocytes % 10.5 % (24.0-44.0); Mean Cell Volume 99.5 fl (78-100); Mean Corpuscular Hemoglobin 31.7 pg (26-32); Mean Corpuscular Hgb Concent. 31.8 g/dl (32-36); Mean Platelet Volume 10.5 fl (7.5-11.0); Monocyte (Absolute #) 0.94 (0.0-1.3); Monocytes % 4.7 % (0.0-12.0); Neutrophil % 84.2 % (36.0-66.0); Platelet Count 608 K/mm3 (150-450); Red Blood Count 4.01 M/mm3 (4.1-5.4); Red Cell Distribution Width 14.1 % (11.5-14.0); White Blood Count 20.1 K/mm3 (4.0-10.5)
[2021-08-02] MEDS ORDERED: Inapsine 5 MG/2 ML ONE (12:15)
[2021-08-02] MEDS ORDERED: Compazine 10 MG/2 ML ONE (12:15)
[2021-08-02] MEDS ORDERED: Sodium Chloride 0.9% 1000 ML 1,000 ML ONE (12:15)
[2021-08-02 12:32] LABS: ALBUMIN 4.4 g/dL (3.5-5.0); ALKALINE PHOSPHATASE 145 U/L (38-126); AMYLASE 226 U/L (30-110); ANION GAP 15.4 MEQ/L (5-15); Appearance CLEAR (CLEAR); BLOOD UREA NITROGEN 6 mg/dL (7-17); Bilirubin NEGATIVE (NEGATIVE); Blood NEGATIVE Ery/ul (0-5); CHLORIDE 105 mmol/L (98-107); Calcium 9.7 mg/dL (8.4-10.2); Carbon Dioxide 21 mmol/L (22-30); Creatinine 1 0.44 mg/dL (0.52-1.04); EST GLOMERULAR FILTRATION RATE > 60.0 ML/MIN; Epithelial Cells RARE /HPF (FEW); Glucose 99 mg/dL (74-106); Glucose NEGATIVE (NEGATIVE); Ketones NEGATIVE (NEGATIVE); LIPASE 491 U/L (23-300); Leukocyte Esterase NEGATIVE (NEGATIVE); Nitrite NEGATIVE (NEGATIVE); Potassium 3.5 mmol/L (3.5-5.1); Protein,Urine Dip NEGATIVE (Negative); SGOT/AST 31 U/L (14-36); SGPT/ALT 9 U/L (0-35); SODIUM 138 mmol/L (137-145); Specific Gravity 1.004 (1.005-1.025); Urobilinogen NEGATIVE mg/dL (0-1)
--- NOTE | 2021-08-02 12:41 | ERPHSYRPT ---
- History of Present Illness Time Seen by Provider: 08/02/21 12:38 Historian: patient Exam Limitations: no limitations Patient Subjective Stated Complaint: PT states "I do not know if it is my pancreatits or what but I am having pain in my right side. I have been vomiting red tinged bile as well." Triage Nursing Assessment: Pt presented alert and oriented X 3, skin pwd Pt ambulates with an upright steady gait, able to speak in clear full setences pt in no apparent respiratory distress. Pt in resting comfortably. Pt holding her right abdomen. Physician History: 31-year-old female with significant past medical history of recurrent chronic pancreatitis started having abdominal pain for last 2 days. Today she had blood in her vomiting. She denies any fever chills. Timing/Duration: today Activities at Onset: none Quality: cramping Abdominal Pain Onset Location: RUQ, epigastric, periumbilical Pain Radiation: no radiation Severity of Pain-Max: moderate Severity of Pain-Current: moderate Modifying Factors: Improves With: nothing Associated Symptoms: loss of appetite, nausea, vomiting Previous symptoms: same symptoms as today Allergies/Adverse Reactions: Penicillins Adverse Reaction (Mild, Verified 07/17/21 01:29) Rash pt states she is not had problems with antibitics related to pcn as an adult Home Medications: Metoprolol Tartrate 50 mg [Lopressor 50 MG] 100 mg PO BID 11/04/20 [History] Omeprazole 20 mg PO DAILY 11/04/20 [History] Hydrocodone/Acetaminophen [Hydrocodone-Acetamin 10-325 mg^^^] 1 tab PO Q4HPRN PRN 01/25/21 [History] Benazepril HCl 10 mg [Lotensin 10 MG] 20 mg PO DAILY 03/22/21 [History] Buspirone HCl [Buspar] 10 mg PO BID 03/22/21 [History] Amlodipine Besylate 5 mg PO DAILY 06/23/21 [History] Ondansetron ODT 4 MG [Zofran Odt 4 mg] 4 mg PO Q6H PRN PRN 07/16/21 [History] Hx Tetanus, Diphtheria Vaccination/Date Given: No Hx Influenza Vaccination/Date Given: Yes Hx Pneumococcal Vaccination/Date Given: No Immunizations Up to Date: Yes Travel Risk - International Travel Have you traveled outside of the country in past 3 weeks: No - Coronavirus Screening Are you exhibiting any of the following symptoms?: No Close contact with a COVID-19 positive Pt in past 14-21 Days: No - Vaccine Status Have you recieved a Covid-19 vaccination: 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 - Vaccination Dates Date of 2cond Vaccination (if applicable): 05/28/2021 - Review of Systems Constitutional: No Fever, No Chills Eyes: No Symptoms Ears, Nose, & Throat: No Symptoms Respiratory: No Cough, No Dyspnea Cardiac: No Chest Pain, No Edema, No Syncope Abdominal/Gastrointestinal: Abdominal Pain, Nausea, Vomiting, Hematemesis, No Diarrhea Genitourinary Symptoms: No Dysuria Musculoskeletal: No Back Pain, No Neck Pain Skin: No Rash Neurological: No Dizziness, No Focal Weakness, No Sensory Changes Psychological: No Symptoms Endocrine: No Symptoms All Other Systems: Reviewed and Negative - Past Medical History Pertinent Past Medical History: Yes Neurological History: No Pertinent History ENT History: No Pertinent History Cardiac History: Hypertension Respiratory History: No Pertinent History Endocrine Medical History: No Pertinent History Musculoskeletal History: No Pertinent History GI Medical History: Pancreatitis History: No Pertinent History Psycho-Social History: No Pertinent History Female Reproductive Disorders: Endometriosis Other Medical History: . - Past Surgical History Past Surgical History: Yes Neuro Surgical History: No Pertinent History Cardiac: No Pertinent History Respiratory: No Pertinent History Gastrointestinal: Appendectomy, Cholecystectomy Genitourinary: No Pertinent History Musculoskeletal: No Pertinent History Female Surgical History: No Pertinent History Other Surgical History: exploratory laparoscopy per Dr Hidalgo 2014- negative, wisdom teeth. NG tube placed for home feedings on 06-17-21 - Social History Smoking Status: Former smoker How long have you smoked: 12 yrs Exposure to second hand smoke: Yes Alcohol Use: Socially Drug Use: none Patient Lives Alone: No Significant Family History: no pertinent family hx - Female History Hx Last Menstrual Period: 07/16/2021 Hx Now: No - Nursing Vital Signs Nursing Vital Signs: Initial Vital Signs Temperature 97.9 F 08/02/21 11:40 Pulse Rate 110 H 08/02/21 11:40 Respiratory Rate 20 08/02/21 11:40 Blood Pressure 165/99 08/02/21 11:40 O2 Sat by Pulse Oximetry 99 08/02/21 11:40 Pain Scale Pain Intensity 8 - Physical Exam General Appearance: no apparent distress, alert Eye Exam: PERRL/EOMI, eyes nml inspection Ears, Nose, Throat Exam: normal ENT inspection, pharynx normal, moist mucous membranes Neck Exam: normal inspection, non-tender, supple, full range of motion Respiratory Exam: normal breath sounds, lungs clear, No respiratory distress Cardiovascular Exam: regular rate/rhythm, normal heart sounds Gastrointestinal/Abdomen Exam: soft, No tenderness, No mass Back Exam: normal inspection, normal range of motion, No CVA tenderness, No vertebral tenderness Extremity Exam: normal inspection, normal range of motion, pelvis stable Neurologic Exam: alert, oriented x 3, cooperative, normal mood/affect, nml cerebellar function, sensation nml, No motor deficits Skin Exam: normal color, warm, dry SpO2: 98 - Course Nursing assessment & vital signs reviewed: Yes - CT Exams Abdomen/Pelvis CT Interpretation: Tele-radiologist Report Ordered Tests: Active Orders 24 hr Category Date Time Status ABDOMEN AND PELVIS W&WO CONTRA [CT] Stat Exams 08/02/21 11:56 Taken AMYLASE Stat Lab 08/02/21 12:00 Completed CBC W DIFF Stat Lab 08/02/21 12:00 Completed CMP Stat Lab 08/02/21 12:00 Completed LIPASE Stat Lab 08/02/21 12:00 Completed UA W/RFX UR CULTURE Stat Lab 08/02/21 12:00 Completed Medication Summary Discontinued Medications Generic Name Dose Route Start Last Admin Trade Name Freq PRN Reason Stop Dose Admin Droperidol 1.25 mg 08/02/21 11:54 08/02/21 12:18 Inapsine 5 Mg/2 Ml IV 08/02/21 11:55 1.25 mg STAT ONE Administration Droperidol Confirm 08/02/21 12:15 Inapsine 5 Mg/2 Ml Administered 08/02/21 12:16 Dose 5 mg .ROUTE .STK-MED ONE Sodium Chloride 1,000 mls @ 999 mls/hr 08/02/21 11:54 08/02/21 14:07 Sodium Chloride 0.9% 1000 Ml IV 08/02/21 12:54 Infused .Q1H1M STA Infusion Sodium Chloride Confirm 08/02/21 12:15 Sodium Chloride 0.9% 1000 Ml Administered 08/02/21 12:16 Dose 1,000 mls @ ud .ROUTE .STK-MED ONE Meropenem 1 g/ Sodium Chloride 100 mls @ 200 mls/hr 08/02/21 13:05 08/02/21 13:14 IV 08/02/21 13:34 200 mls/hr STAT ONE Administration Sodium Chloride Confirm 08/02/21 13:11 Sodium Chloride 100ml Mini-Bag Plus Administered 08/02/21 13:12 Dose 100 mls @ ud IV .STK-MED ONE Meropenem Confirm 08/02/21 13:10 Merrem 1 Gm Administered 08/02/21 13:11 Dose 1 g IV .STK-MED ONE Pantoprazole Sodium 40 mg 08/02/21 11:54 08/02/21 12:18 Protonix 40 Mg Iv IV 08/02/21 11:55 40 mg STAT ONE Administration Pantoprazole Sodium Confirm 08/02/21 12:15 Protonix 40 Mg Iv Administered 08/02/21 12:16 Dose 40 mg IV .STK-MED ONE Prochlorperazine Edisylate 5 mg 08/02/21 11:54 08/02/21 12:18 Compazine 10 Mg/2 Ml IV 08/02/21 11:55 5 mg STAT ONE Administration Prochlorperazine Edisylate Confirm 08/02/21 12:15 Compazine 10 Mg/2 Ml Administered 08/02/21 12:16 Dose 10 mg .ROUTE .STK-MED ONE Lab/Rad Data: Laboratory Result Diagrams 08/02/21 12:00 08/02/21 12:00 Laboratory Results 08/02/21 08/02/21 08/02/21 Range/Units 12:00 12:00 12:00 WBC 20.1 H (4.0-10.5) K/mm3 RBC 4.01 L (4.1-5.4) M/mm3 Hgb 12.7 (12.0-16.0) gm/dl Hct 39.9 (35-47) % MCV 99.5 (78-100) fl MCH 31.7 (26-32) pg MCHC 31.8 L (32-36) g/dl RDW 14.1 H (11.5-14.0) % Plt Count 608 H (150-450) K/mm3 MPV 10.5 (7.5-11.0) fl Gran % 84.2 H (36.0-66.0) % Eos # (Auto) 0.08 (0-0.5) Absolute Lymphs (auto) 2.11 (1.0-4.6) Absolute Monos (auto) 0.94 (0.0-1.3) Lymphocytes % 10.5 L (24.0-44.0) % Monocytes % 4.7 (0.0-12.0) % Eosinophils % 0.4 (0.00-5.0) % Basophils % 0.2 (0.0-0.4) % Absolute Granulocytes 16.90 H (1.4-6.9) Basophils # 0.04 (0-0.4) Sodium 138 (137-145) mmol/L Potassium 3.5 (3.5-5.1) mmol/L Chloride 105 (98-107) mmol/L Carbon Dioxide 21 L (22-30) mmol/L Anion Gap 15.4 H (5-15) MEQ/L BUN 6 L (7-17) mg/dL Creatinine 0.44 L (0.52-1.04) mg/dL Estimated GFR > 60.0 ML/MIN Glucose 99 (74-106) mg/dL Calcium 9.7 (8.4-10.2) mg/dL Total Bilirubin 0.60 (0.2-1.3) mg/dL AST 31 (14-36) U/L ALT 9 (0-35) U/L Alkaline Phosphatase 145 H (38-126) U/L Serum Total Protein 8.0 (6.3-8.2) g/dL Albumin 4.4 (3.5-5.0) g/dL Amylase 226 H (30-110) U/L Lipase 491 H (23-300) U/L Urine Color YELLOW (YELLOW) Urine Appearance CLEAR (CLEAR) Urine pH 7.0 (5-6) Ur Specific [place] 1.004 (1.005-1.025) Urine Protein NEGATIVE (Negative) Urine Ketones NEGATIVE (NEGATIVE) Urine Blood NEGATIVE (0-5) [place]/ul Urine Nitrite NEGATIVE (NEGATIVE) Urine Bilirubin NEGATIVE (NEGATIVE) Urine Urobilinogen NEGATIVE (0-1) mg/dL Ur Leukocyte Esterase NEGATIVE (NEGATIVE) Urine WBC (Auto) NONE (0-5) /HPF Urine RBC (Auto) NONE (0-2) /HPF U Epithel Cells (Auto) RARE (FEW) /HPF Urine Bacteria (Auto) NONE (NEGATIVE) /HPF Urine Culture Reflexed NO (NO) Urine Glucose NEGATIVE (NEGATIVE) mg/dL - Progress Progress: unchanged, pain not gone completely Discussed with : Cathi Will see patient in: hospital (observation) Counseled pt/family regarding: lab results, diagnosis, need for follow-up, rad results - Departure Departure Disposition: Observation Clinical Impression: Recurrent acute pancreatitis Condition: Fair Critical Care Time: Yes Critical Care Time(excluding separately billable procedures): Critical 30-74 mins Referrals: TAMELA KHAN [Primary Care Provider] - Instructions: Pancreatitis
[2021-08-02] MEDS ORDERED: Merrem 1 GM 1 G in Sodium Chloride 100ML MINI-BAG PLUS 100 ML IV ONE (13:05)
[2021-08-02] MEDS ORDERED: Merrem 1 GM IV ONE (13:10)
[2021-08-02] MEDS ORDERED: Sodium Chloride 100ML MINI-BAG PLUS 100 ML IV ONE (13:11)
[2021-08-02] MEDS ORDERED: Zofran 4 MG/2 ML VIAL IV PRN (14:43)
[2021-08-02] MEDS ORDERED: Zofran 4 MG/2 ML VIAL IV ONE (14:47)
[2021-08-02] MEDS ORDERED: Zofran 4 MG/2 ML VIAL ONE ×2 (15:23→21:10)
[2021-08-02] MEDS: Sodium Chloride 0.9% 1000 ML 1,000 ML IV SCH (17:05)
[2021-08-02] MEDS: MORPHINE SULFATE 4 MG INJ IV PRN ×2 (17:06→21:15)
--- NOTE | 2021-08-02 20:15 | XRAY ---
Indication: Abdomen pain. Multiple contiguous images obtained through the abdomen and pelvis prior to and following 80 cc of Isovue 370 contrast as ordered. Comparison: July 16, 2021 Lung bases demonstrates new bilateral dependent atelectasis. Stable left lower lobe calcified granuloma. Heart not enlarged. Noncontrast images again demonstrates tiny splenic calcified granulomas, nonobstructing bilateral renal micro-calculi, and cholecystectomy. Noncontrasted stomach and bowel loops appear nonobstructed. Postcontrast images demonstrates normal visceral enhancement and renal excretion. Again mild pancreatitis with increasing peripancreatic edema and new tiny perihepatic/pelvic free fluid. 2 new pseudocysts superior to the head of the pancreas measuring 4.0 x 3.0 cm and 1.7 x 1.5 cm. No free air. Liver remains enlarged. Remaining liver, spleen, adrenal glands, kidneys, ureters, bladder, uterus, and aorta are unremarkable. No pathologic retroperitoneal lymphadenopathy. Impression: 1. Pancreatitis with increasing peripancreatic edema, new tiny free fluid, and new pseudocysts. 2. Again incidental nonobstructing bilateral renal micro-calculi, hepatomegaly, and old granulomatous disease. Comment: Preliminary interpretation made by [facility]. No critical discrepancy.
[2021-08-02] MEDS: CLINDAMYCIN-D5W 600 MG/50 ML*** 600 MG/50 ML BAG IV SCH (22:35)
[2021-08-03] MEDS: Lopressor 50 MG PO SCH ×3 (00:14→21:38)
[2021-08-03] MEDS: HYDROCODONE-ACETAMIN 10-325 MG PO PRN ×6 (00:14→23:40)
[2021-08-03] MEDS: Zofran 4 MG/2 ML VIAL IV PRN ×5 (01:48→20:40)
[2021-08-03] MEDS: MORPHINE SULFATE 4 MG INJ IV PRN ×5 (01:49→20:40)
[2021-08-03] MEDS ORDERED: Sodium Chloride 0.9% 1000 ML 1,000 ML ONE (03:35)
[2021-08-03] MEDS: Sodium Chloride 0.9% 1000 ML 1,000 ML IV SCH ×2 (03:36→13:21)
[2021-08-03 05:53] LABS: Absolute Neutrophil Ct (ANC) 7.91 (1.4-6.9); BASOPHIL % 0.3 % (0.0-0.4); Basophil (Absolute #) 0.04 (0-0.4); Eosinophil % 1.1 % (0.00-5.0); Eosinophil (Absolute #) 0.13 (0-0.5); Hemoglobin 9.9 gm/dl (12.0-16.0); Lymphocytes % 22.7 % (24.0-44.0); Mean Cell Volume 100.9 fl (78-100); Mean Corpuscular Hemoglobin 31.2 pg (26-32); Mean Corpuscular Hgb Concent. 30.9 g/dl (32-36); Mean Platelet Volume 10.4 fl (7.5-11.0); Monocyte (Absolute #) 0.79 (0.0-1.3); Monocytes % 6.9 % (0.0-12.0); Platelet Count 368 K/mm3 (150-450); Red Blood Count 3.17 M/mm3 (4.1-5.4); Red Cell Distribution Width 13.9 % (11.5-14.0); White Blood Count 11.5 K/mm3 (4.0-10.5)
[2021-08-03 06:06] LABS: ALBUMIN 3.3 g/dL (3.5-5.0); ALKALINE PHOSPHATASE 105 U/L (38-126); ANION GAP 11.9 MEQ/L (5-15); BLOOD UREA NITROGEN 3 mg/dL (7-17); CHLORIDE 106 mmol/L (98-107); Calcium 8.5 mg/dL (8.4-10.2); Carbon Dioxide 24 mmol/L (22-30); Creatinine 1 0.44 mg/dL (0.52-1.04); EST GLOMERULAR FILTRATION RATE > 60.0 ML/MIN; Glucose 84 mg/dL (74-106); Potassium 3.7 mmol/L (3.5-5.1); SGOT/AST 14 U/L (14-36); SGPT/ALT 6 U/L (0-35); SODIUM 138 mmol/L (137-145); Total Protein 6.2 g/dL (6.3-8.2)
[2021-08-03] MEDS ORDERED: MORPHINE SULFATE 4 MG INJ ONE (06:30)
[2021-08-03] MEDS: CLINDAMYCIN-D5W 600 MG/50 ML*** 600 MG/50 ML BAG IV SCH ×3 (06:36→21:38)
[2021-08-03] MEDS: ENOXAPARIN SODIUM SQ SCH (09:01)
[2021-08-03 09:12] LABS: AMYLASE 132 U/L (30-110); LIPASE 178 U/L (23-300)
[2021-08-03] MEDS ORDERED: Lopressor 50 MG PO SCH (10:00)
[2021-08-03] MEDS ORDERED: PROTONIX 40 MG IV IV SCH (10:00)
[2021-08-03] MEDS ORDERED: Lopressor 50 MG PO ONE (11:00)
[2021-08-03] MEDS: Nicoderm CQ 21 MG TOP SCH (11:22)
[2021-08-03] MEDS: BUSPAR 5 MG PO SCH ×2 (11:23→21:38)
[2021-08-03] MEDS: Lotensin 10 MG PO SCH (11:23)
[2021-08-03] MEDS: NORVASC 5 MG PO SCH (11:24)
[2021-08-03] MEDS ORDERED: NON-FORMULARY ITEM (Buspirone Hcl [Buspar] 10 MG) PO SCH (22:00)
--- NOTE | 2021-08-03 22:28 | PCM.HP ---
History of Present Illness - Chief Complaint Chief Complaint: acute pancreatitis Date: 08/03/21 History of Present Illness: is a 31 year old female. Presented to ER with complaints of increasing abdominal pain over the past 2 days with some n/v. Pt. is well known for flairs of her chronic pancreatitis requiring admission. Pt. denies fever or other symptoms. CT did show some stranding but no pseudocyst in the region of the pancreas. - Review of Systems Constitutional: No Fever, No Chills Eyes: No Symptoms Ears, Nose, & Throat: No Symptoms Respiratory: No Cough, No Short Of Breath Cardiac: No Chest Pain, No Edema, No Syncope Abdominal/Gastrointestinal: Abdominal Pain, Nausea, Vomiting, No Diarrhea Genitourinary Symptoms: No Dysuria Musculoskeletal: No Back Pain, No Neck Pain Skin: No Rash Neurological: No Dizziness, No Focal Weakness, No Sensory Changes Psychological: No Symptoms Endocrine: No Symptoms Hematologic/Lymphatic: No Symptoms Immunological/Allergic: No Symptoms Medications & Allergies Home Medications: Home Medication List Metoprolol Tartrate 50 mg [Lopressor 50 MG] 100 mg PO BID 11/04/20 [History Confirmed 08/02/21] Omeprazole 20 mg PO DAILY 11/04/20 [History Confirmed 08/02/21] Hydrocodone/Acetaminophen [Hydrocodone-Acetamin 10-325 mg^^^] 1 tab PO Q4HPRN PRN 01/25/21 [History Confirmed 08/02/21] Benazepril HCl 10 mg [Lotensin 10 MG] 20 mg PO DAILY 03/22/21 [History Confirmed 08/02/21] Buspirone HCl [Buspar] 10 mg PO BID 03/22/21 [History Confirmed 08/02/21] Amlodipine Besylate 5 mg PO DAILY 06/23/21 [History Confirmed 08/02/21] Ondansetron ODT 4 MG [Zofran Odt 4 mg] 4 mg PO Q4H PRN PRN 07/16/21 [History Confirmed 08/02/21] Allergies/Adverse Reactions: Allergies Allergy/AdvReac Type Severity Reaction Status Date / Time Penicillins AdvReac Mild Rash Verified 07/17/21 01:29 - Past Medical History Past Medical History: Yes Neurological History: No Pertinent History ENT History: No Pertinent History Cardiac History: Hypertension Respiratory History: No Pertinent History Endocrine Medical History: No Pertinent History Musculoskelatal History: No Pertinent History GI Medical History: Pancreatitis History: No Pertinent History Pyscho-Social History: No Pertinent History Reproductive Disorders: Endometriosis Comment: . - Female History Hx Last Menstrual Period: 07/16/2021 Are you now?: No - Past Surgical History Past Surgical History: Yes Neuro Surgical History: No Pertinent History Cardiac History: No Pertinent History Respiratory Surgery: No Pertinent History GI Surgical History: Appendectomy, Cholecystectomy Genitourinary Surgical Hx: No Pertinent History Musculskeletal Surgical Hx: No Pertinent History Female Surgical History: No Pertinent History Other Surgical History: exploratory laparoscopy per Dr Hidalgo 2014- negative, wisdom teeth. - Social History Smoking Status: Former smoker How long have you smoked: 12 yrs Exposure to second hand smoke: Yes Alcohol: None Drug Use: none Significant Family History: no pertinent family hx - Physical Exam Vital Signs: Vital Signs - 24 hr Temp Pulse Resp BP Pulse Ox 08/03/21 16:00 97.8 F 76 16 161/81 97 08/03/21 12:00 98.8 F 70 17 93/50 95 08/03/21 08:00 98.0 F 76 16 133/72 97 08/03/21 04:00 98.5 F 79 22 127/70 96 08/03/21 00:00 98.4 F 93 H 22 150/93 96 General Appearance: no apparent distress, alert Neurologic Exam: alert, oriented x 3, cooperative, normal mood/affect, nml cerebellar function, sensation nml, No motor deficits Eye Exam: PERRL/EOMI, eyes nml inspection Ears, Nose, Throat Exam: normal ENT inspection, pharynx normal, moist mucous membranes Neck Exam: normal inspection, non-tender, supple Respiratory Exam: normal breath sounds, lungs clear, No respiratory distress Cardiovascular Exam: regular rate/rhythm, normal heart sounds, normal peripheral pulses Gastrointestinal/Abdomen Exam: soft, normal bowel sounds, tenderness, distention, No mass, No guarding (diffusely tender more so in the luq) Back Exam: normal inspection, No CVA tenderness, No vertebral tenderness Extremity Exam: normal inspection Skin Exam: normal color, warm, dry, No rash Lymphatic Exam: No adenopathy Results - Labs Lab/Micro Results: Lab Results-Last 24 Hours 08/03/21 08/03/21 08/03/21 Range/Units 05:15 05:34 05:34 WBC 11.5 H (4.0-10.5) K/mm3 RBC 3.17 L (4.1-5.4) M/mm3 Hgb 9.9 L D (12.0-16.0) gm/dl Hct 32.0 L (35-47) % MCV 100.9 H (78-100) fl MCH 31.2 (26-32) pg MCHC 30.9 L (32-36) g/dl RDW 13.9 (11.5-14.0) % Plt Count 368 D (150-450) K/mm3 MPV 10.4 (7.5-11.0) fl Gran % 69.0 H (36.0-66.0) % Eos # (Auto) 0.13 (0-0.5) Absolute Lymphs (auto) 2.60 (1.0-4.6) Absolute Monos (auto) 0.79 (0.0-1.3) Lymphocytes % 22.7 L (24.0-44.0) % Monocytes % 6.9 (0.0-12.0) % Eosinophils % 1.1 (0.00-5.0) % Basophils % 0.3 (0.0-0.4) % Absolute Granulocytes 7.91 H (1.4-6.9) Basophils # 0.04 (0-0.4) Sodium 138 (137-145) mmol/L Potassium 3.7 (3.5-5.1) mmol/L Chloride 106 (98-107) mmol/L Carbon Dioxide 24 (22-30) mmol/L Anion Gap 11.9 (5-15) MEQ/L BUN 3 L (7-17) mg/dL Creatinine 0.44 L (0.52-1.04) mg/dL Estimated GFR > 60.0 ML/MIN Glucose 84 (74-106) mg/dL Calcium 8.5 (8.4-10.2) mg/dL Total Bilirubin 0.60 (0.2-1.3) mg/dL AST 14 (14-36) U/L ALT 6 (0-35) U/L Alkaline Phosphatase 105 (38-126) U/L Serum Total Protein 6.2 L (6.3-8.2) g/dL Albumin 3.3 L (3.5-5.0) g/dL Amylase 132 H (30-110) U/L Lipase 178 (23-300) U/L - Radiology Impressions Radiology Exams & Impressions: Radiology Procedures Category Date Time Status ABDOMEN AND PELVIS W&WO CONTRA [CT] Stat Exams 08/02/21 11:56 Completed Assessment/Plan (1) Recurrent acute pancreatitis Current Visit: Yes Status: Acute Assessment & Plan: clear liquids and pain control as needed. Code(s): K85.90 - ACUTE PANCREATITIS WITHOUT NECROSIS OR INFECTION, UNSP
[2021-08-04] MEDS: MORPHINE SULFATE 4 MG INJ IV PRN ×3 (01:10→09:43)
[2021-08-04] MEDS: HYDROCODONE-ACETAMIN 10-325 MG PO PRN ×2 (03:17→08:19)
[2021-08-04] MEDS: Sodium Chloride 0.9% 1000 ML 1,000 ML IV SCH (05:12)
[2021-08-04] MEDS: CLINDAMYCIN-D5W 600 MG/50 ML*** 600 MG/50 ML BAG IV SCH (05:33)
[2021-08-04 06:35] LABS: Hematocrit 30.8 % (35-47); Hemoglobin 9.4 gm/dl (12.0-16.0); Mean Cell Volume 102.7 fl (78-100); Mean Corpuscular Hemoglobin 31.3 pg (26-32); Mean Corpuscular Hgb Concent. 30.5 g/dl (32-36); Mean Platelet Volume 11.3 fl (7.5-11.0); Platelet Count 328 K/mm3 (150-450); Red Cell Distribution Width 13.9 % (11.5-14.0); White Blood Count 8.3 K/mm3 (4.0-10.5)
[2021-08-04 06:51] LABS: ALBUMIN 3.2 g/dL (3.5-5.0); ALKALINE PHOSPHATASE 92 U/L (38-126); AMYLASE 105 U/L (30-110); ANION GAP 11.9 MEQ/L (5-15); BLOOD UREA NITROGEN 4 mg/dL (7-17); CHLORIDE 105 mmol/L (98-107); Calcium 8.4 mg/dL (8.4-10.2); Carbon Dioxide 26 mmol/L (22-30); Creatinine 1 0.47 mg/dL (0.52-1.04); EST GLOMERULAR FILTRATION RATE > 60.0 ML/MIN; Glucose 80 mg/dL (74-106); LIPASE 147 U/L (23-300); Potassium 3.9 mmol/L (3.5-5.1); SGOT/AST 15 U/L (14-36); SGPT/ALT 6 U/L (0-35); SODIUM 139 mmol/L (137-145); Total Protein 6.2 g/dL (6.3-8.2)
[2021-08-04] MEDS: Lotensin 10 MG PO SCH (08:18)
[2021-08-04] MEDS: BUSPAR 5 MG PO SCH (08:18)
[2021-08-04] MEDS: NORVASC 5 MG PO SCH (08:18)
[2021-08-04] MEDS: Nicoderm CQ 21 MG TOP SCH (08:19)
[2021-08-04] MEDS: Lopressor 50 MG PO SCH (08:19)
[2021-08-04] MEDS: ENOXAPARIN SODIUM SQ SCH (08:19)
[2021-08-04 08:29] VITALS: BP 139/79; PULSE 72; O2SAT 95
[2021-08-04] MEDS ORDERED: NON-FORMULARY ITEM (Omeprazole [Omeprazole] 20 MG) PO SCH (10:00)
[2021-08-04] MEDS ORDERED: Protonix 40MG Tablet PO SCH (10:00)
--- NOTE | 2021-08-04 13:45 | SSS ---
DISCHARGE DIAGNOSIS: RECURRENT PANCREATITIS. HOSPITAL COURSE: The patient is a 31-year-old white female with multiple admissions to the hospital for the same. She began having problems with vomiting and has intense abdominal pain and presented to the emergency room. The patient in the past had not been forth coming with her alcohol problem. After discussion with the patient, she did come clean with the fact that she had been drinking alcohol and likely causing pancreatic issues. The patient has been seen by pain management in [place] and GI specialist at [facility] in [place] for the pancreatitis issues. The patient by the morning of 08/04/2021, was feeling much better. She was not vomiting any longer. Her amylase and lipase were back to normal. She was felt to be ready for discharge home at this time. Her vital signs otherwise are stable. The patient's labs otherwise showed her COVID test to be negative. Her amylase at this time on admission was 226 and lipase 491 which is actually much lower than she had been previously. Hemoglobin was noted to be somewhat low at 9.4, white count 8.3, PLT count 328,000. Her BUN was 4 and creatinine was 0.47. Electrolytes were stable as are her liver enzymes. The patient's CT scan again showed pancreatitis and increasing parapancreatic edema and tiny fluid and new pseudocyst otherwise was negative. Again, the patient will be discharged home today to slowly increase her diet to a low fat diet. She is to follow up with pain management on 08/12/2021. Encouraged to contact her GI specialist because she said currently he has put off any additional procedures right now in the midst of the COVID pandemic.
== END 2021-08-04 09:59 | disposition home or self-care (01) ==
LOC: ED 11:07 → MED SURG 16:40
PROVIDERS: ADMIT Family Medicine; ATTEND Family Medicine
DX: K85.90 Acute pancreatitis without necrosis or infection, unspecified (principal); R11.2 Nausea with vomiting, unspecified; I10 Essential (primary) hypertension; Z79.899 Other long term (current) drug therapy; Z20.822 Contact with and (suspected) exposure to COVID-19
CPT/HCPCS: 36415; 74178; 80053; 81001; 82150; 83690; 85025; 85027; 96360; 96374; 96375; 99285; 99291; G0378; U0003; J1650; J2270; J2405; A9270-GY

== ENCOUNTER 2021-08-08 19:30 | Emergency (ER) | payer OTHER ==
--- NOTE | 2021-08-08 19:42 | ERPHSYRPT ---
- History of Present Illness Time Seen by Provider: 08/08/21 19:42 Historian: patient Exam Limitations: no limitations Physician History: This is a 31-year-old white female patient of Dr. Tan who has frequented our emergency rooms on several occasions for recurrent pancreatitis abdominal pain. There is been associated nausea and vomiting with her abdominal pain. Patient is back again 2 days after being discharged from this facility for inpatient treatment. She was admitted on 08/02/2021 and discharged on 08/06/2021. Patient states that she feels that she went home too soon. Patient was discharged to home with medications including Percocet prescription. Patient did not mushroom picker this prescription. Patient states that her interaction with her copy writer has been a "joke". Each time the patient has been to the emergency room what I've been attending, she states that this particular episode is the worst she is ever had. Patient denies chest pain. She denies shortness of breath. Timing/Duration: day(s) (2), worse Activities at Onset: none Quality: aching Abdominal Pain Onset Location: generalized abdomen Pain Radiation: no radiation Severity of Pain-Max: moderate Severity of Pain-Current: moderate Modifying Factors: Improves With: vomiting Associated Symptoms: loss of appetite, nausea, vomiting, No chest pain, No diaphoresis, No diarrhea, No fever/chills Previous symptoms: same symptoms as today, recently seen, recent hospitalization, recently treated Allergies/Adverse Reactions: Penicillins Adverse Reaction (Mild, Verified 07/17/21 01:29) Rash pt states she is not had problems with antibitics related to pcn as an adult Home Medications: Metoprolol Tartrate 50 mg [Lopressor 50 MG] 100 mg PO BID 11/04/20 [History] Omeprazole 20 mg PO DAILY 11/04/20 [History] Hydrocodone/Acetaminophen [Hydrocodone-Acetamin 10-325 mg^^^] 1 tab PO Q4HPRN PRN 01/25/21 [History] Benazepril HCl 10 mg [Lotensin 10 MG] 20 mg PO DAILY 03/22/21 [History] Buspirone HCl [Buspar] 10 mg PO BID 03/22/21 [History] Amlodipine Besylate 5 mg PO DAILY 06/23/21 [History] Ondansetron ODT 4 MG [Zofran Odt 4 mg] 4 mg PO Q4H PRN PRN 07/16/21 [H istory] Hx Tetanus, Diphtheria Vaccination/Date Given: No Hx Influenza Vaccination/Date Given: Yes Hx Pneumococcal Vaccination/Date Given: No Travel Risk - International Travel Have you traveled outside of the country in past 3 weeks: No - Coronavirus Screening Are you exhibiting any of the following symptoms?: No Close contact with a COVID-19 positive Pt in past 14-21 Days: No - Vaccine Status Have you recieved a Covid-19 vaccination: Yes [employer]: [employer] - Vaccination Dates Date of 2cond Vaccination (if applicable): 05/28/2021 - Review of Systems Constitutional: No Symptoms Eyes: No Symptoms Ears, Nose, & Throat: No Symptoms Respiratory: No Symptoms Cardiac: No Symptoms Abdominal/Gastrointestinal: Abdominal Pain, Nausea, Vomiting, No Diarrhea Genitourinary Symptoms: No Symptoms Musculoskeletal: No Symptoms Skin: No Symptoms Neurological: No Symptoms Psychological: No Symptoms Endocrine: No Symptoms Hematologic/Lymphatic: No Symptoms Immunological/Allergic: No Symptoms All Other Systems: Reviewed and Negative - Past Medical History Pertinent Past Medical History: Yes Neurological History: No Pertinent History ENT History: No Pertinent History Cardiac History: Hypertension Respiratory History: No Pertinent History Endocrine Medical History: No Pertinent History Musculoskeletal History: No Pertinent History GI Medical History: Pancreatitis History: No Pertinent History Psycho-Social History: No Pertinent History Female Reproductive Disorders: Endometriosis Other Medical History: . - Past Surgical History Past Surgical History: Yes Neuro Surgical History: No Pertinent History Cardiac: No Pertinent History Respiratory: No Pertinent History Gastrointestinal: Appendectomy, Cholecystectomy Genitourinary: No Pertinent History Musculoskeletal: No Pertinent History Female Surgical History: No Pertinent History Other Surgical History: exploratory laparoscopy per Dr Hidalgo 2014- negative, wisdom teeth. - Social History Smoking Status: Former smoker How long have you smoked: 12 yrs Exposure to second hand smoke: Yes Alcohol Use: Socially Drug Use: none Patient Lives Alone: No Significant Family History: no pertinent family hx - Nursing Vital Signs Nursing Vital Signs: Initial Vital Signs Temperature 98.9 F 08/08/21 19:59 Pulse Rate 102 H 08/08/21 19:59 Respiratory Rate 22 08/08/21 19:59 Blood Pressure 163/98 08/08/21 19:59 O2 Sat by Pulse Oximetry 100 08/08/21 19:59 Pain Scale Pain Intensity 6 - Physical Exam General Appearance: mild distress, alert, anxiety Eye Exam: PERRL/EOMI, eyes nml inspection Ears, Nose, Throat Exam: normal ENT inspection, moist mucous membranes Neck Exam: normal inspection, non-tender, supple, full range of motion Respiratory Exam: normal breath sounds, lungs clear, airway intact, No chest tenderness, No respiratory distress Cardiovascular Exam: regular rate/rhythm, normal heart sounds, normal peripheral pulses Gastrointestinal/Abdomen Exam: soft, normal bowel sounds, tenderness, guarding, No rebound Pelvic Exam: not done Rectal Exam: not done Back Exam: normal inspection, normal range of motion, No CVA tenderness, No vertebral tenderness Extremity Exam: normal inspection, normal range of motion, pelvis stable Neurologic Exam: alert, oriented x 3, cooperative, desk representative II-XII nml as tested, normal mood/affect, nml cerebellar function, nml station & gait, sensation nml Skin Exam: normal color, warm, dry Lymphatic Exam: No adenopathy SpO2 Interpretation: normal O2 Delivery: Room Air Ordered Tests: Active Orders 24 hr Category Date Time Status IV Insertion STAT Care 08/08/21 19:43 Active ABDOMEN AND PELVIS W/0 CONTRAS [CT] Stat Exams 08/08/21 19:43 Ordered AMYLASE Stat Lab 08/08/21 20:01 Completed CBC W DIFF Stat Lab 08/08/21 20:01 Completed CMP Stat Lab 08/08/21 20:01 Completed LIPASE Stat Lab 08/08/21 20:01 Completed Lactic Acid Stat Lab 08/08/21 20:30 Completed UA W/RFX UR CULTURE Stat Lab 08/08/21 19:59 Completed Medication Summary Generic Name Dose Route Start Last Admin Trade Name Freq PRN Reason Stop Dose Admin Sodium Chloride 1,000 mls @ 999 mls/hr 08/08/21 20:42 08/08/21 21:20 Sodium Chloride 0.9% 1000 Ml IV 08/08/21 21:42 999 mls/hr .Q1H1M STA Administration Discontinued Medications Generic Name Dose Route Start Last Admin Trade Name Freq PRN Reason Stop Dose Admin Hydromorphone HCl 1 mg 08/08/21 19:43 08/08/21 20:17 Hydromorphone 1 Mg/Ml Injection IV 08/08/21 19:44 1 mg STAT ONE Administration Hydromorphone HCl Confirm 08/08/21 20:14 Hydromorphone 1 Mg/Ml Injection Administered 08/08/21 20:15 Dose 1 mg .ROUTE .STK-MED ONE Hydromorphone HCl 1 mg 08/08/21 21:10 08/08/21 21:21 Hydromorphone 1 Mg/Ml Injection IV 08/08/21 21:11 1 mg STAT ONE Administration Hydromorphone HCl Confirm 08/08/21 21:19 Hydromorphone 1 Mg/Ml Injection Administered 08/08/21 21:20 Dose 1 mg .ROUTE .STK-MED ONE Sodium Chloride 1,000 mls @ 999 mls/hr 08/08/21 19:43 08/08/21 20:17 Sodium Chloride 0.9% 1000 Ml IV 08/08/21 20:43 999 mls/hr .Q1H1M STA Administration Sodium Chloride Confirm 08/08/21 20:14 Sodium Chloride 0.9% 1000 Ml Administered 08/08/21 20:15 Dose 1,000 mls @ ud .ROUTE .STK-MED ONE Sodium Chloride Confirm 08/08/21 21:19 Sodium Chloride 0.9% 1000 Ml Administered 08/08/21 21:20 Dose 1,000 mls @ ud .ROUTE .STK-MED ONE Ondansetron HCl 4 mg 08/08/21 21:10 08/08/21 21:20 Zofran 4 Mg/2 Ml Vial IV 08/08/21 21:11 4 mg STAT ONE Administration Ondansetron HCl Confirm 08/08/21 21:19 Zofran 4 Mg/2 Ml Vial Administered 08/08/21 21:20 Dose 4 mg .ROUTE .STK-MED ONE Prochlorperazine Edisylate 10 mg 08/08/21 19:43 08/08/21 20:17 Compazine 10 Mg/2 Ml IV 08/08/21 19:44 10 mg STAT ONE Administration Prochlorperazine Edisylate Confirm 08/08/21 20:14 Compazine 10 Mg/2 Ml Administered 08/08/21 20:15 Dose 10 mg .ROUTE .STK-MED ONE Lab/Rad Data: Laboratory Result Diagrams 08/08/21 20:01 08/08/21 20:01 Laboratory Results 08/08/21 08/08/21 08/08/21 Range/Units 20:30 20:01 20:01 WBC 12.9 H (4.0-10.5) K/mm3 RBC 4.21 (4.1-5.4) M/mm3 Hgb 13.1 (12.0-16.0) gm/dl Hct 42.3 (35-47) % MCV 100.5 H (78-100) fl MCH 31.1 (26-32) pg MCHC 31.0 L (32-36) g/dl RDW 13.9 (11.5-14.0) % Plt Count 385 (150-450) K/mm3 MPV 11.5 H (7.5-11.0) fl Gran % 68.3 H (36.0-66.0) % Eos # (Auto) 0.28 (0-0.5) Absolute Lymphs (auto) 2.91 (1.0-4.6) Absolute Monos (auto) 0.83 (0.0-1.3) Lymphocytes % 22.6 L (24.0-44.0) % Monocytes % 6.5 (0.0-12.0) % Eosinophils % 2.2 (0.00-5.0) % Basophils % 0.4 (0.0-0.4) % Absolute Granulocytes 8.78 H (1.4-6.9) Basophils # 0.05 (0-0.4) Sodium 142 (137-145) mmol/L Potassium 4.1 (3.5-5.1) mmol/L Chloride 106 (98-107) mmol/L Carbon Dioxide 23 (22-30) mmol/L Anion Gap 17.6 H (5-15) MEQ/L BUN 9 (7-17) mg/dL Creatinine 0.57 (0.52-1.04) mg/dL Estimated GFR > 60.0 ML/MIN Glucose 108 H (74-106) mg/dL Lactic Acid 2.8 H (0.4-2.0) Calcium 10.0 (8.4-10.2) mg/dL Total Bilirubin 0.70 (0.2-1.3) mg/dL AST 65 H (14-36) U/L ALT 51 H (0-35) U/L Alkaline Phosphatase 151 H (38-126) U/L Serum Total Protein 8.4 H (6.3-8.2) g/dL Albumin 4.6 (3.5-5.0) g/dL Amylase 113 H (30-110) U/L Lipase 373 H (23-300) U/L Urine Color (YELLOW) Urine Appearance (CLEAR) Urine pH (5-6) Ur Specific [place] (1.005-1.025) Urine Protein (Negative) Urine Ketones (NEGATIVE) Urine Blood (0-5) [place]/ul Urine Nitrite (NEGATIVE) Urine Bilirubin (NEGATIVE) Urine Urobilinogen (0-1) mg/dL Ur Leukocyte Esterase (NEGATIVE) Urine WBC (Auto) (0-5) /HPF Urine RBC (Auto) (0-2) /HPF U Hyaline Cast (Auto) (0-2) /LPF U Epithel Cells (Auto) (FEW) /HPF Urine Bacteria (Auto) (NEGATIVE) /HPF Urine Mucus (Auto) (NEGATIVE) /HPF Urine Culture Reflexed (NO) Urine Glucose (NEGATIVE) mg/dL 08/08/21 Range/Units 19:59 WBC (4.0-10.5) K/mm3 RBC (4.1-5.4) M/mm3 Hgb (12.0-16.0) gm/dl Hct (35-47) % MCV (78-100) fl MCH (26-32) pg MCHC (32-36) g/dl RDW (11.5-14.0) % Plt Count (150-450) K/mm3 MPV (7.5-11.0) fl Gran % (36.0-66.0) % Eos # (Auto) (0-0.5) Absolute Lymphs (auto) (1.0-4.6) Absolute Monos (auto) (0.0-1.3) Lymphocytes % (24.0-44.0) % Monocytes % (0.0-12.0) % Eosinophils % (0.00-5.0) % Basophils % (0.0-0.4) % Absolute Granulocytes (1.4-6.9) Basophils # (0-0.4) Sodium (137-145) mmol/L Potassium (3.5-5.1) mmol/L Chloride (98-107) mmol/L Carbon Dioxide (22-30) mmol/L Anion Gap (5-15) MEQ/L BUN (7-17) mg/dL Creatinine (0.52-1.04) mg/dL Estimated GFR ML/MIN Glucose (74-106) mg/dL Lactic Acid (0.4-2.0) Calcium (8.4-10.2) mg/dL Total Bilirubin (0.2-1.3) mg/dL AST (14-36) U/L ALT (0-35) U/L Alkaline Phosphatase (38-126) U/L Serum Total Protein (6.3-8.2) g/dL Albumin (3.5-5.0) g/dL Amylase (30-110) U/L Lipase (23-300) U/L Urine Color [place]YN (YELLOW) Urine Appearance CLOUDY (CLEAR) Urine pH 5.0 (5-6) Ur Specific [place] 1.036 (1.005-1.025) Urine Protein 100 (Negative) Urine Ketones TRACE (NEGATIVE) Urine Blood NEGATIVE (0-5) [place]/ul Urine Nitrite NEGATIVE (NEGATIVE) Urine Bilirubin SMALL (NEGATIVE) Urine Urobilinogen 4 (0-1) mg/dL Ur Leukocyte Esterase NEGATIVE (NEGATIVE) Urine WBC (Auto) NONE (0-5) /HPF Urine RBC (Auto) NONE (0-2) /HPF U Hyaline Cast (Auto) 0-2 (0-2) /LPF U Epithel Cells (Auto) MANY (FEW) /HPF Urine Bacteria (Auto) NONE (NEGATIVE) /HPF Urine Mucus (Auto) SLIGHT (NEGATIVE) /HPF Urine Culture Reflexed NO (NO) Urine Glucose NEGATIVE (NEGATIVE) mg/dL - Progress Progress: improved, pain not gone completely Progress Note: 08/08/21 21:11 Medical decision making: This patient's symptoms have improved. Her work-up demonstrates that there is significant improvement in several lab values. The CAT scan of her abdomen pelvis does not show any acute findings. We will discharge her to home and she is to follow-up with her copy writer on 08/11/2021 for further management. Counseled pt/family regarding: lab results, diagnosis, need for follow-up, rad results - Departure Clinical Impression: Recurrent pancreatitis, Mild dehydration Condition: Stable Critical Care Time: No Referrals: TAMELA TAN [Primary Care Provider] - Additional Instructions: Clear liquid diet. public message service supervisor all your prescriptions and take them as prescribed. Follow-up with your copy writer on 08/11/2021 for further management. Prescriptions: Ondansetron ODT 4 MG [Zofran Odt 4 mg] 4 mg PO Q6H PRN PRN #10 tablet PRN Reason: Vomiting
[2021-08-08] MEDS ORDERED: Compazine 10 MG/2 ML IV ONE (19:43)
[2021-08-08] MEDS ORDERED: Hydromorphone 1 mg/ml Injection IV ONE ×2 (19:43→21:10)
[2021-08-08] MEDS ORDERED: Sodium Chloride 0.9% 1000 ML 1,000 ML IV STA ×2 (19:43→20:42)
[2021-08-08 20:04] LABS: Absolute Neutrophil Ct (ANC) 8.78 (1.4-6.9); BASOPHIL % 0.4 % (0.0-0.4); Basophil (Absolute #) 0.05 (0-0.4); Eosinophil % 2.2 % (0.00-5.0); Eosinophil (Absolute #) 0.28 (0-0.5); Hematocrit 42.3 % (35-47); Hemoglobin 13.1 gm/dl (12.0-16.0); Lymphocyte (Absolute #) 2.91 (1.0-4.6); Lymphocytes % 22.6 % (24.0-44.0); Mean Cell Volume 100.5 fl (78-100); Mean Corpuscular Hemoglobin 31.1 pg (26-32); Mean Platelet Volume 11.5 fl (7.5-11.0); Monocyte (Absolute #) 0.83 (0.0-1.3); Monocytes % 6.5 % (0.0-12.0); Neutrophil % 68.3 % (36.0-66.0); Platelet Count 385 K/mm3 (150-450); Red Blood Count 4.21 M/mm3 (4.1-5.4); Red Cell Distribution Width 13.9 % (11.5-14.0); White Blood Count 12.9 K/mm3 (4.0-10.5)
[2021-08-08] MEDS ORDERED: Hydromorphone 1 mg/ml Injection ONE ×2 (20:14→21:19)
[2021-08-08] MEDS ORDERED: Sodium Chloride 0.9% 1000 ML 1,000 ML ONE ×2 (20:14→21:19)
[2021-08-08] MEDS ORDERED: Compazine 10 MG/2 ML ONE (20:14)
[2021-08-08 20:18] LABS: Appearance CLOUDY (CLEAR); Bilirubin SMALL (NEGATIVE); Blood NEGATIVE Ery/ul (0-5); Epithelial Cells MANY /HPF (FEW); Glucose NEGATIVE (NEGATIVE); Hyaline Casts 0-2 /LPF (0-2); Ketones TRACE (NEGATIVE); Leukocyte Esterase NEGATIVE (NEGATIVE); Mucus SLIGHT /HPF (NEGATIVE); Nitrite NEGATIVE (NEGATIVE); Protein,Urine Dip 100 (Negative); Specific Gravity 1.036 (1.005-1.025); Urobilinogen 4 mg/dL (0-1)
[2021-08-08 20:19] LABS: ALBUMIN 4.6 g/dL (3.5-5.0); ALKALINE PHOSPHATASE 151 U/L (38-126); AMYLASE 113 U/L (30-110); ANION GAP 17.6 MEQ/L (5-15); BLOOD UREA NITROGEN 9 mg/dL (7-17); CHLORIDE 106 mmol/L (98-107); Carbon Dioxide 23 mmol/L (22-30); Creatinine 1 0.57 mg/dL (0.52-1.04); EST GLOMERULAR FILTRATION RATE > 60.0 ML/MIN; Glucose 108 mg/dL (74-106); LIPASE 373 U/L (23-300); Potassium 4.1 mmol/L (3.5-5.1); SGOT/AST 65 U/L (14-36); SGPT/ALT 51 U/L (0-35); SODIUM 142 mmol/L (137-145); Total Protein 8.4 g/dL (6.3-8.2)
[2021-08-08] MEDS ORDERED: Zofran 4 MG/2 ML VIAL IV ONE (21:10)
[2021-08-08] MEDS ORDERED: Zofran 4 MG/2 ML VIAL ONE (21:19)
[2021-08-08 22:51] VITALS: BP 136/82; PULSE 88; O2SAT 99
--- NOTE | 2021-08-11 08:13 | XRAY ---
Indication: Abdomen pain. Pancreatitis. Multiple contiguous axial images obtained through the abdomen and pelvis without contrast. Comparison: August 02, 2021. Lung bases again demonstrates bibasilar dependent atelectasis and tiny left costophrenic angle calcified granuloma. Heart not enlarged. Noncontrasted stomach and bowel loops remain nonobstructed. Grossly stable pancreatitis with again 2 pseudocysts superiorly. No free air. Liver remains enlarged measuring 22 cm. Again incidental tiny splenic calcified granulomas, nonobstructing bilateral renal micro-calculi, and cholecystectomy. Remaining liver, spleen, adrenal glands, kidneys, ureters, latter, uterus, and aorta are unremarkable for noncontrast exam. Impression: 1. Grossly stable pancreatitis with 2 pseudocysts. 2. Again incidental nonobstructing bilateral renal micro-calculi, hepatomegaly, and old granulomatous disease.
== END 2021-08-08 22:51 | disposition home or self-care (01) ==
LOC: ED 19:30
DX: R10.9 Unspecified abdominal pain (principal); K85.80 Other acute pancreatitis without necrosis or infection; R11.2 Nausea with vomiting, unspecified; E86.0 Dehydration; Z20.822 Contact with and (suspected) exposure to COVID-19; Z79.899 Other long term (current) drug therapy
CPT/HCPCS: 36000; 36415; 74176; 80053; 81001; 82150; 83605; 83690; 85025; 96360; 96374; 96375; 96376; 99284; J1170; J2405

== ENCOUNTER 2021-08-17 17:41 | Emergency (ER) | payer OTHER ==
[2021-08-17] MEDS ORDERED: PROTONIX 40 MG IV IV ONE ×2 (18:05→19:14)
[2021-08-17] MEDS ORDERED: MORPHINE SULFATE 4 MG INJ IV ONE (18:05)
[2021-08-17] MEDS ORDERED: Sodium Chloride 0.9% 1000 ML 1,000 ML IV STA ×2 (18:05→19:30)
[2021-08-17] MEDS ORDERED: Zofran 4 MG/2 ML VIAL IV ONE ×3 (18:05→22:05)
--- NOTE | 2021-08-17 18:24 | ERPHSYRPT ---
- History of Present Illness Historian: patient Exam Limitations: no limitations Patient Subjective Stated Complaint: pt reports RUQ abd pain with nausea and vomiting for 2 days, reports chronic pancreatitis Triage Nursing Assessment: pt is aox3, appears in pain, afebrile, resps easy and non labored, cap refill < 3 seconds, radial pulses strong and equal, pt abd soft, tender to RUQ, bowel sounds present, normoactive all quads, skin pink warm dry. Timing/Duration: yesterday Quality: cramping Abdominal Pain Onset Location: RUQ, periumbilical Pain Radiation: back Severity of Pain-Max: severe Severity of Pain-Current: severe Modifying Factors: Improves With: nothing Associated Symptoms: loss of appetite, nausea, vomiting Previous symptoms: same symptoms as today, recently seen, recently treated Hx Tetanus, Diphtheria Vaccination/Date Given: Yes Hx Influenza Vaccination/Date Given: No Hx Pneumococcal Vaccination/Date Given: No Immunizations Up to Date: Yes <PACO ABDUL - Last Filed: 08/17/21 18:53> <BUBBA WANG - Last Filed: 08/17/21 20:14> - History of Present Illness Time Seen by Provider: 08/17/21 18:22 Physician History: Patient is 31-year-old female with history of recurrent pancreatitis with her 2 tiny pancreatic pseudocyst has multiple ER visit with abdominal pain nausea and vomiting. Today again she started having same type of complaint in the morning which got worse as days progressed and she could not keep anything down. She reports that her symptoms started approximately 2 days ago. She thought she will get better she continued drinking fluid but today she could not keep any fluid down and so she came to the emergency room. (PACO ABDUL) Allergies/Adverse Reactions: Penicillins Adverse Reaction (Mild, Verified 08/17/21 17:59) Rash pt states she is not had problems with antibitics related to pcn as an adult Home Medications: Metoprolol Tartrate 50 mg [Lopressor 50 MG] 100 mg PO BID 11/04/20 [History] Omeprazole 20 mg PO DAILY 11/04/20 [History] Hydrocodone/Acetaminophen [Hydrocodone-Acetamin 10-325 mg^^^] 1 tab PO Q4HPRN PRN 01/25/21 [History] Benazepril HCl 10 mg [Lotensin 10 MG] 20 mg PO DAILY 03/22/21 [History] Buspirone HCl [Buspar] 10 mg PO BID 03/22/21 [History] Amlodipine Besylate 5 mg PO DAILY 06/23/21 [History] Ondansetron ODT 4 MG [Zofran Odt 4 mg] 4 mg PO Q4H PRN PRN 07/16/21 [History] Travel Risk - International Travel Have you traveled outside of the country in past 3 weeks: No - Coronavirus Screening Are you exhibiting any of the following symptoms?: No Close contact with a COVID-19 positive Pt in past 14-21 Days: No - Vaccine Status Have you recieved a Covid-19 vaccination: Yes 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: [employer] - Vaccination Dates Date of 2cond Vaccination (if applicable): unk <CHANTELL,PACO - Last Filed: 08/17/21 18:53> - Review of Systems Constitutional: No Fever, No Chills Eyes: No Symptoms Ears, Nose, & Throat: No Symptoms Respiratory: No Cough, No Dyspnea Cardiac: No Chest Pain, No Edema, No Syncope Abdominal/Gastrointestinal: Abdominal Pain, Nausea, Vomiting, No Diarrhea Genitourinary Symptoms: No Dysuria Musculoskeletal: No Back Pain, No Neck Pain Skin: No Rash Neurological: No Dizziness, No Focal Weakness, No Sensory Changes Psychological: No Symptoms Endocrine: No Symptoms All Other Systems: Reviewed and Negative <CHANTELL,PACO - Last Filed: 08/17/21 18:53> - Past Medical History Pertinent Past Medical History: Yes Neurological History: No Pertinent History ENT History: No Pertinent History Cardiac History: Hypertension Respiratory History: No Pertinent History Endocrine Medical History: No Pertinent History Musculoskeletal History: No Pertinent History GI Medical History: Pancreatitis History: No Pertinent History Psycho-Social History: No Pertinent History Female Reproductive Disorders: Endometriosis Other Medical History: . - Past Surgical History Past Surgical History: Yes Neuro Surgical History: No Pertinent History Cardiac: No Pertinent History Respiratory: No Pertinent History Gastrointestinal: Appendectomy, Cholecystectomy Genitourinary: No Pertinent History Musculoskeletal: No Pertinent History Female Surgical History: No Pertinent History Other Surgical History: exploratory laparoscopy per Dr Hidalgo 2014- negative, wisdom teeth. - Social History Smoking Status: Former smoker How long have you smoked: 12 yrs Exposure to second hand smoke: Yes Alcohol Use: Socially Drug Use: none Patient Lives Alone: No Significant Family History: no pertinent family hx - Female History Hx Last Menstrual Period: 07/23/21 Hx Now: No <CHANTELL, - Last Filed: 08/17/21 18:53> - Physical Exam General Appearance: no apparent distress, alert Eye Exam: PERRL/EOMI, eyes nml inspection Ears, Nose, Throat Exam: normal ENT inspection, pharynx normal, moist mucous membranes Neck Exam: normal inspection, non-tender, supple, full range of motion Respiratory Exam: normal breath sounds, lungs clear, No respiratory distress Cardiovascular Exam: regular rate/rhythm, normal heart sounds Gastrointestinal/Abdomen Exam: soft, tenderness (RUQ, Periumbilical area), No mass Back Exam: normal inspection, normal range of motion, No CVA tenderness, No vertebral tenderness Extremity Exam: normal inspection, normal range of motion, pelvis stable Neurologic Exam: alert, oriented x 3, cooperative, normal mood/affect, nml cerebellar function, sensation nml, No motor deficits Skin Exam: normal color, warm, dry SpO2: 99 <CHANTELL - Last Filed: 08/17/21 18:53> - Nursing Vital Signs Nursing Vital Signs: Initial Vital Signs Temperature 98.3 F 08/17/21 17:47 Pulse Rate 135 H 08/17/21 17:47 Respiratory Rate 18 08/17/21 17:47 Blood Pressure 166/124 08/17/21 17:47 O2 Sat by Pulse Oximetry 99 08/17/21 17:47 Pain Scale Pain Intensity 9 - Course Nursing assessment & vital signs reviewed: Yes <CHANTELL, - Last Filed: 08/17/21 18:53> Ordered Tests: Active Orders 24 hr Category Date Time Status AMYLASE Stat Lab 08/17/21 19:03 Completed CBC W DIFF Stat Lab 08/17/21 19:03 Completed CMP Stat Lab 08/17/21 19:03 Completed LIPASE Stat Lab 08/17/21 19:03 Completed UA W/RFX UR CULTURE Stat Lab 08/17/21 19:53 Completed Medication Summary Generic Name Dose Route Start Last Admin Trade Name Freq PRN Reason Stop Dose Admin Sodium Chloride 1,000 mls @ 999 mls/hr 08/17/21 19:30 Sodium Chloride 0.9% 1000 Ml IV 08/17/21 20:30 .Q1H1M STA Discontinued Medications Generic Name Dose Route Start Last Admin Trade Name Lazaro PRN Reason Stop Dose Admin Hydromorphone HCl 1 mg 08/17/21 19:30 Hydromorphone 1 Mg/Ml Injection IV 08/17/21 19:31 STAT ONE Sodium Chloride 1,000 mls @ 999 mls/hr 08/17/21 18:05 08/17/21 19:21 Sodium Chloride 0.9% 1000 Ml IV 08/17/21 19:05 999 mls/hr .Q1H1M STA Administration Sodium Chloride Confirm 08/17/21 19:14 Sodium Chloride 0.9% 1000 Ml Administered 08/17/21 19:15 Dose 1,000 mls @ ud .ROUTE .STK-MED ONE Morphine Sulfate 4 mg 08/17/21 18:05 08/17/21 19:22 Morphine Sulfate 4 Mg Inj IV 08/17/21 18:06 4 mg STAT ONE Administration Morphine Sulfate Confirm 08/17/21 19:14 Morphine Sulfate 4 Mg Inj Administered 08/17/21 19:15 Dose 4 mg .ROUTE .STK-MED ONE Ondansetron HCl 4 mg 08/17/21 18:05 08/17/21 19:22 Zofran 4 Mg/2 Ml Vial IV 08/17/21 18:06 4 mg STAT ONE Administration Ondansetron HCl Confirm 08/17/21 19:14 Zofran 4 Mg/2 Ml Vial Administered 08/17/21 19:15 Dose 4 mg .ROUTE .STK-MED ONE Pantoprazole Sodium 40 mg 08/17/21 18:05 08/17/21 19:21 Protonix 40 Mg Iv IV 08/17/21 18:06 40 mg STAT ONE Administration Pantoprazole Sodium Confirm 08/17/21 19:14 Protonix 40 Mg Iv Administered 08/17/21 19:15 Dose 40 mg IV .STK-MED ONE Prochlorperazine Edisylate 10 mg 08/17/21 19:31 Compazine 10 Mg/2 Ml IV 08/17/21 19:32 STAT ONE Lab/Rad Data: Laboratory Result Diagrams 08/17/21 19:03 08/17/21 19:03 Laboratory Results 08/17/21 08/17/21 08/17/21 Range/Units 19:53 19:03 19:03 WBC 13.0 H (4.0-10.5) K/mm3 RBC 3.71 L (4.1-5.4) M/mm3 Hgb 11.6 L (12.0-16.0) gm/dl Hct 36.8 (35-47) % MCV 99.2 (78-100) fl MCH 31.3 (26-32) pg MCHC 31.5 L (32-36) g/dl RDW 13.8 (11.5-14.0) % Plt Count 375 (150-450) K/mm3 MPV 10.1 (7.5-11.0) fl Gran % 72.0 H (36.0-66.0) % Eos # (Auto) 0.16 (0-0.5) Absolute Lymphs (auto) 2.73 (1.0-4.6) Absolute Monos (auto) 0.73 (0.0-1.3) Lymphocytes % 21.0 L (24.0-44.0) % Monocytes % 5.6 (0.0-12.0) % Eosinophils % 1.2 (0.00-5.0) % Basophils % 0.2 (0.0-0.4) % Absolute Granulocytes 9.32 H (1.4-6.9) Basophils # 0.03 (0-0.4) Sodium 140 (137-145) mmol/L Potassium 3.5 (3.5-5.1) mmol/L Chloride 107 (98-107) mmol/L Carbon Dioxide 24 (22-30) mmol/L Anion Gap 13.6 (5-15) MEQ/L BUN 7 (7-17) mg/dL Creatinine 0.48 L (0.52-1.04) mg/dL Estimated GFR > 60.0 ML/MIN Glucose 101 (74-106) mg/dL Calcium 9.5 (8.4-10.2) mg/dL Total Bilirubin 0.40 (0.2-1.3) mg/dL AST 16 (14-36) U/L ALT 12 (0-35) U/L Alkaline Phosphatase 127 H (38-126) U/L Serum Total Protein 7.6 (6.3-8.2) g/dL Albumin 4.1 (3.5-5.0) g/dL Amylase 99 (30-110) U/L Lipase 203 (23-300) U/L Urine Color YELLOW (YELLOW) Urine Appearance CLEAR (CLEAR) Urine pH 7.0 (5-6) Ur Specific [place] 1.004 (1.005-1.025) Urine Protein NEGATIVE (Negative) Urine Ketones NEGATIVE (NEGATIVE) Urine Blood NEGATIVE (0-5) [place]/ul Urine Nitrite NEGATIVE (NEGATIVE) Urine Bilirubin NEGATIVE (NEGATIVE) Urine Urobilinogen NEGATIVE (0-1) mg/dL Ur Leukocyte Esterase NEGATIVE (NEGATIVE) Urine WBC (Auto) NONE (0-5) /HPF Urine RBC (Auto) NONE (0-2) /HPF U Epithel Cells (Auto) RARE (FEW) /HPF Urine Bacteria (Auto) NONE (NEGATIVE) /HPF Urine Mucus (Auto) SLIGHT (NEGATIVE) /HPF Urine Culture Reflexed NO (NO) Urine Glucose NEGATIVE (NEGATIVE) mg/dL <PACO ABDUL - Last Filed: 08/17/21 18:53> - Progress Progress: improved, pain not gone completely Counseled pt/family regarding: lab results, diagnosis, need for follow-up <BUBBA WANG - Last Filed: 08/17/21 20:14> - Progress Progress Note: 08/17/21 18:53 Patient is switch over to Dr. Wang care at 7 PM. (PACO ABDUL) 08/17/21 19:32 Medical decision making: This patient's white count is slightly elevated but when compared to the last 10 visits in the last 30 days it is lower than the average. In addition, her amylase and lipase are normal. The patient has recurrent abdominal pain and recurrent nausea vomiting. We will rehydrate her and provide her with intravenous narcotics and antiemetics then discharge her to home to follow-up with a audit spec. (BUBBA WANG) <PACO ABDUL - Last Filed: 08/17/21 18:53> - Departure Departure Disposition: Home Critical Care Time: No <BUBBA WANG - Last Filed: 08/17/21 20:14> - Departure Clinical Impression: Recurrent abdominal pain, Nausea and vomiting Condition: Stable Referrals: TAMELA KHAN [Primary Care Provider] - Additional Instructions: Clear liquid diet only. Call your audit spec and primary care physician tomorrow for further management of your recurrent, chronic condition and complaints
[2021-08-17 19:06] LABS: Absolute Neutrophil Ct (ANC) 9.32 (1.4-6.9); BASOPHIL % 0.2 % (0.0-0.4); Basophil (Absolute #) 0.03 (0-0.4); Eosinophil % 1.2 % (0.00-5.0); Eosinophil (Absolute #) 0.16 (0-0.5); Hematocrit 36.8 % (35-47); Hemoglobin 11.6 gm/dl (12.0-16.0); Lymphocyte (Absolute #) 2.73 (1.0-4.6); Mean Cell Volume 99.2 fl (78-100); Mean Corpuscular Hemoglobin 31.3 pg (26-32); Mean Corpuscular Hgb Concent. 31.5 g/dl (32-36); Mean Platelet Volume 10.1 fl (7.5-11.0); Monocyte (Absolute #) 0.73 (0.0-1.3); Monocytes % 5.6 % (0.0-12.0); Platelet Count 375 K/mm3 (150-450); Red Blood Count 3.71 M/mm3 (4.1-5.4); Red Cell Distribution Width 13.8 % (11.5-14.0)
[2021-08-17] MEDS ORDERED: Zofran 4 MG/2 ML VIAL ONE ×2 (19:14→22:09)
[2021-08-17] MEDS ORDERED: Sodium Chloride 0.9% 1000 ML 1,000 ML ONE ×2 (19:14→20:34)
[2021-08-17] MEDS ORDERED: MORPHINE SULFATE 4 MG INJ ONE (19:14)
[2021-08-17 19:15] LABS: ALBUMIN 4.1 g/dL (3.5-5.0); ALKALINE PHOSPHATASE 127 U/L (38-126); AMYLASE 99 U/L (30-110); ANION GAP 13.6 MEQ/L (5-15); BLOOD UREA NITROGEN 7 mg/dL (7-17); CHLORIDE 107 mmol/L (98-107); Calcium 9.5 mg/dL (8.4-10.2); Carbon Dioxide 24 mmol/L (22-30); Creatinine 1 0.48 mg/dL (0.52-1.04); EST GLOMERULAR FILTRATION RATE > 60.0 ML/MIN; Glucose 101 mg/dL (74-106); LIPASE 203 U/L (23-300); Potassium 3.5 mmol/L (3.5-5.1); SGOT/AST 16 U/L (14-36); SGPT/ALT 12 U/L (0-35); SODIUM 140 mmol/L (137-145); Total Protein 7.6 g/dL (6.3-8.2)
[2021-08-17] MEDS ORDERED: Hydromorphone 1 mg/ml Injection IV ONE (19:30)
[2021-08-17 20:08] LABS: Appearance CLEAR (CLEAR); Bilirubin NEGATIVE (NEGATIVE); Blood NEGATIVE Ery/ul (0-5); Epithelial Cells RARE /HPF (FEW); Glucose NEGATIVE (NEGATIVE); Ketones NEGATIVE (NEGATIVE); Leukocyte Esterase NEGATIVE (NEGATIVE); Mucus SLIGHT /HPF (NEGATIVE); Nitrite NEGATIVE (NEGATIVE); Protein,Urine Dip NEGATIVE (Negative); Specific Gravity 1.004 (1.005-1.025); Urobilinogen NEGATIVE mg/dL (0-1)
[2021-08-17] MEDS ORDERED: Compazine 10 MG/2 ML ONE (20:34)
[2021-08-17] MEDS ORDERED: Hydromorphone 1 mg/ml Injection ONE (20:34)
[2021-08-17] MEDS: Compazine 10 MG/2 ML IV ONE ×2 (20:36→22:16)
[2021-08-17 22:18] VITALS: BP 165/109; PULSE 98; O2SAT 99
== END 2021-08-17 22:18 | disposition home or self-care (01) ==
LOC: ED 17:41
DX: R10.9 Unspecified abdominal pain (principal); I10 Essential (primary) hypertension; R11.2 Nausea with vomiting, unspecified; Z79.899 Other long term (current) drug therapy; Z79.891 Long term (current) use of opiate analgesic
CPT/HCPCS: 36415; 80053; 81001; 82150; 83690; 85025; 96360; 96361; 96374; 96375; 99284; J1170; J2270; J2405

== ENCOUNTER 2021-09-08 08:25 | Emergency (ER) | payer OTHER ==
[2021-09-08] MEDS ORDERED: Sodium Chloride 0.9% 1000 ML 1,000 ML IV STA (08:52)
[2021-09-08] MEDS ORDERED: Inapsine 5 MG/2 ML IV ONE (08:54)
--- NOTE | 2021-09-08 09:00 | ERPHSYRPT ---
- History of Present Illness Time Seen by Provider: 09/08/21 09:10 Source: patient Exam Limitations: no limitations Patient Subjective Stated Complaint: pt here for her chroinc abd pain with n/v for 4 days now Triage Nursing Assessment: pt alert, resp easy,skin w/d/p, abd soft Physician History: Patient is a 31-year-old female well-known to our ED presents with complaints of recurrence of her chronic abdominal pain. Patient was in our ED on 17 August for the same. Patient states her abdominal pain started 4 days ago. Pain described as an ache that is localized to the epigastric/right upper quadrant region. Patient has a history of cholecystectomy. Patient has been experiencing nausea and vomiting. No diarrhea. No rash. No fever no trauma. Symptoms are mild to moderate in intensity. No specific worsening or improving factors. Patient has a GI specialist at [facility]. She also has a pain specialist who manages her chronic abdominal pain. Patient voices no other complaints concerns at this time. Patient had Zofran prior to arrival. Timing/Duration: today Severity: moderate Modifying Factors: Improves With: nothing Associated Symptoms: nausea, vomiting, abdominal pain, No shortness of breath, No diaphoresis, No cough, No chills, No chest pain, No fever, No headaches, No loss of appetite, No syncope Allergies/Adverse Reactions: Penicillins Adverse Reaction (Mild, Verified 09/08/21 08:32) Rash pt states she is not had problems with antibitics related to pcn as an adult Home Medications: Metoprolol Tartrate 50 mg [Lopressor 50 MG] 100 mg PO BID 11/04/20 [History] Omeprazole 20 mg PO DAILY 11/04/20 [History] Hydrocodone/Acetaminophen [Hydrocodone-Acetamin 10-325 mg^^^] 1 tab PO Q4HPRN PRN 01/25/21 [History] Benazepril HCl 10 mg [Lotensin 10 MG] 20 mg PO DAILY 03/22/21 [History] Buspirone HCl [Buspar] 10 mg PO BID 03/22/21 [History] Amlodipine Besylate 5 mg PO DAILY 06/23/21 [History] Ondansetron ODT 4 MG [Zofran Odt 4 mg] 4 mg PO Q4H PRN PRN 07/16/21 [History] Hx Tetanus, Diphtheria Vaccination/Date Given: Yes Hx Influenza Vaccination/Date Given: No Hx Pneumococcal Vaccination/Date Given: No Immunizations Up to Date: Yes Travel Risk - International Travel Have you traveled outside of the country in past 3 weeks: No - Coronavirus Screening Are you exhibiting any of the following symptoms?: No Close contact with a COVID-19 positive Pt in past 14-21 Days: No - Vaccine Status Have you recieved a Covid-19 vaccination: Yes [employer]: [employer] - Vaccination Dates Date of 2cond Vaccination (if applicable): may 2021 - Review of Systems Constitutional: No Symptoms, No Fever, No Chills Eyes: No Symptoms Ears, Nose, & Throat: No Symptoms Respiratory: No Symptoms, No Cough, No Dyspnea Cardiac: No Symptoms, No Chest Pain, No Edema, No Syncope Abdominal/Gastrointestinal: No Symptoms, No Abdominal Pain, No Nausea, No Vomiting, No Diarrhea Genitourinary Symptoms: No Symptoms, No Dysuria Musculoskeletal: No Symptoms, No Back Pain, No Neck Pain Skin: No Symptoms, No Rash Neurological: No Symptoms, No Dizziness, No Focal Weakness, No Sensory Changes Psychological: No Symptoms Endocrine: No Symptoms Hematologic/Lymphatic: No Symptoms Immunological/Allergic: No Symptoms All Other Systems: Reviewed and Negative - Past Medical History Pertinent Past Medical History: Yes Neurological History: No Pertinent History ENT History: No Pertinent History Cardiac History: Hypertension Respiratory History: No Pertinent History Endocrine Medical History: No Pertinent History Musculoskeletal History: No Pertinent History GI Medical History: Pancreatitis History: No Pertinent History Psycho-Social History: No Pertinent History Female Reproductive Disorders: Endometriosis Other Medical History: . - Past Surgical History Past Surgical History: Yes Neuro Surgical History: No Pertinent History Cardiac: No Pertinent History Respiratory: No Pertinent History Gastrointestinal: Appendectomy, Cholecystectomy Genitourinary: No Pertinent History Musculoskeletal: No Pertinent History Female Surgical History: No Pertinent History Other Surgical History: exploratory laparoscopy per Dr Hidalgo 2014- negative, wisdom teeth. - Social History Smoking Status: Former smoker How long have you smoked: 12 yrs Exposure to second hand smoke: Yes Alcohol Use: Socially Drug Use: none Patient Lives Alone: No Significant Family History: no pertinent family hx - Female History Hx Last Menstrual Period: aug 17 Hx Now: No - Nursing Vital Signs Nursing Vital Signs: Initial Vital Signs Pulse Rate 87 09/08/21 09:06 Respiratory Rate 17 1018/21 09:06 Blood Pressure 134/110 09/08/21 09:06 O2 Sat by Pulse Oximetry 99 09/08/21 09:06 Pain Scale Pain Intensity 8 - Physical Exam General Appearance: no apparent distress, alert Eye Exam: PERRL/EOMI, eyes nml inspection Ears, Nose, Throat Exam: normal ENT inspection, TMs normal, pharynx normal, moist mucous membranes Neck Exam: normal inspection, non-tender, supple, full range of motion Respiratory Exam: normal breath sounds, lungs clear, airway intact, No r espiratory distress Cardiovascular Exam: regular rate/rhythm, normal heart sounds, normal peripheral pulses Gastrointestinal/Abdomen Exam: soft, normal bowel sounds, tenderness (Tenderness palpation epigastrium. Overlying soft tissue intact. No signs of trauma.), No mass Back Exam: normal inspection, normal range of motion, No CVA tenderness, No vertebral tenderness Extremity Exam: normal inspection, normal range of motion, pelvis stable Neurologic Exam: alert, oriented x 3, cooperative, normal mood/affect, nml cerebellar function, nml station & gait, sensation nml, No motor deficits Skin Exam: normal color, warm, dry, No rash Lymphatic Exam: No adenopathy SpO2 Interpretation: normal O2 Delivery: Room Air - Course Nursing assessment & vital signs reviewed: Yes - CT Exams Abdomen/Pelvis CT Interpretation: Tele-radiologist Report (Improving pancreatitis. Resolved pseudocyst. Again incidental nonobstructing bilateral renal microcalculi, hepatomegaly, and old granulomatous disease) - Radiology Ultrasound Exam Gallbladder Ultrasound: discussed w/radiologist (History of cholecystectomy. Ultrasound is negative for common bile duct stone.) Ordered Tests: Active Orders 24 hr Category Date Time Status AMA [Release AMA] OM.NOW Care 09/08/21 12:53 Ordered IV Insertion STAT Care 09/08/21 08:52 Active ABDOMEN AND PELVIS W/0 CONTRAS [CT] Stat Exams 09/08/21 08:53 Completed GALLBLADDER [US] Stat Exams 09/08/21 10:32 Completed CBC W DIFF Stat Lab 09/08/21 09:12 Completed CMP Stat Lab 09/08/21 09:12 Completed ETHYL ALCOHOL Stat Lab 09/08/21 09:15 Completed HCG,QUALITATIVE URINE Stat Lab 09/08/21 08:55 Completed LIPASE Stat Lab 09/08/21 09:12 Completed TROPONIN Q3H Lab 09/08/21 09:12 Completed TROPONIN Q3H Lab 09/08/21 12:32 Received TROPONIN Q3H Lab 09/08/21 15:00 Ordered TROPONIN Q3H Lab 09/08/21 18:00 Ordered TROPONIN Q3H Lab 09/08/21 21:00 Ordered UA W/RFX UR CULTURE Stat Lab 09/08/21 08:55 Completed Medication Summary Generic Name Dose Route Start Last Admin Trade Name Freq PRN Reason Stop Dose Admin Potassium Chloride 20 meq in 100 mls @ 50 mls/hr 09/08/21 11:15 09/08/21 11:31 Potassium Chloride 20 Meq In Water 100ml IV 09/08/21 15:14 50 mls/hr Q2H ANTONIO Administration Discontinued Medications Generic Name Dose Route Start Last Admin Trade Name Freq PRN Reason Stop Dose Admin Droperidol 1.25 mg 09/08/21 08:54 09/08/21 09:19 Droperidol 5 Mg/2 Ml Vial IV 09/08/21 08:55 1.25 mg STAT ONE Administration Droperidol Confirm 09/08/21 09:15 Droperidol 5 Mg/2 Ml Vial Administered 09/08/21 09:16 Dose 5 mg .ROUTE .STK-MED ONE Sodium Chloride 1,000 mls @ 999 mls/hr 09/08/21 08:52 09/08/21 11:31 Sodium Chloride 0.9% 1000 Ml IV 09/08/21 09:52 100 mls/hr .Q1H1M STA Infusion Sodium Chloride Confirm 09/08/21 09:15 Sodium Chloride 0.9% 1000 Ml Administered 09/08/21 09:16 Dose 1,000 mls @ ud .ROUTE .STK-MED ONE Ketorolac Tromethamine 30 mg 09/08/21 10:30 Ketorolac Tromethamine 30 Mg/Ml Inj IM 09/08/21 10:31 STAT ONE Ketorolac Tromethamine 30 mg 09/08/21 10:31 09/08/21 10:40 Ketorolac Tromethamine 30 Mg/Ml Inj IV 09/08/21 10:32 30 mg STAT ONE Administration Ketorolac Tromethamine Confirm 09/08/21 10:40 Ketorolac Tromethamine 30 Mg/Ml Inj Administered 10/18/21 10:41 Dose 30 mg .ROUTE .STK-MED ONE Lab/Rad Data: Laboratory Result Diagrams 09/08/21 09:12 09/08/21 09:12 Laboratory Results 09/08/21 09/08/21 09/08/21 Range/Units 09:15 09:12 09:12 WBC (4.0-10.5) K/mm3 RBC (4.1-5.4) M/mm3 Hgb (12.0-16.0) gm/dl Hct (35-47) % MCV (78-100) fl MCH (26-32) pg MCHC (32-36) g/dl RDW (11.5-14.0) % Plt Count (150-450) K/mm3 MPV (7.5-11.0) fl Gran % (36.0-66.0) % Eos # (Auto) (0-0.5) Absolute Lymphs (auto) (1.0-4.6) Absolute Monos (auto) (0.0-1.3) Lymphocytes % (24.0-44.0) % Monocytes % (0.0-12.0) % Eosinophils % (0.00-5.0) % Basophils % (0.0-0.4) % Absolute Granulocytes (1.4-6.9) Basophils # (0-0.4) Sodium 137 (137-145) mmol/L Potassium 3.3 L (3.5-5.1) mmol/L Chloride 98 (98-107) mmol/L Carbon Dioxide 25 (22-30) mmol/L Anion Gap 17.0 H (5-15) MEQ/L BUN 9 (7-17) mg/dL Creatinine 0.67 (0.52-1.04) mg/dL Estimated GFR > 60.0 ML/MIN Glucose 96 (74-106) mg/dL Calcium 10.1 (8.4-10.2) mg/dL Total Bilirubin 2.30 H (0.2-1.3) mg/dL AST 78 H (14-36) U/L ALT 92 H (0-35) U/L Alkaline Phosphatase 204 H (38-126) U/L Troponin I < 0.012 (0.000-0.034) ng/mL Serum Total Protein 8.9 H (6.3-8.2) g/dL Albumin 4.9 (3.5-5.0) g/dL Lipase 327 H (23-300) U/L Urine Color (YELLOW) Urine Appearance (CLEAR) Urine pH (5-6) Ur Specific Foster (1.005-1.025) Urine Protein (Negative) Urine Ketones (NEGATIVE) Urine Blood (0-5) Boone/ul Urine Nitrite (NEGATIVE) Urine Bilirubin (NEGATIVE) Urine Urobilinogen (0-1) mg/dL Ur Leukocyte Esterase (NEGATIVE) Urine WBC (Auto) (0-5) /HPF Urine RBC (Auto) (0-2) /HPF U Epithel Cells (Auto) (FEW) /HPF Urine Bacteria (Auto) (NEGATIVE) /HPF Urine Mucus (Auto) (NEGATIVE) /HPF Urine Culture Reflexed (NO) Urine Glucose (NEGATIVE) mg/dL Urine HCG, Qual (Negative) Ethyl Alcohol < 10 (0-10) mg/dL Slides for Path Review 09/08/21 09/08/21 09/08/21 Range/Units 09:12 08:55 08:55 WBC 11.5 H (4.0-10.5) K/mm3 RBC 4.98 (4.1-5.4) M/mm3 Hgb 15.2 (12.0-16.0) gm/dl Hct 47.1 H (35-47) % MCV 94.6 (78-100) fl MCH 30.5 (26-32) pg MCHC 32.3 (32-36) g/dl RDW 13.7 (11.5-14.0) % Plt Count 289 (150-450) K/mm3 MPV 12.0 H (7.5-11.0) fl Gran % 76.1 H (36.0-66.0) % Eos # (Auto) 0.28 (0-0.5) Absolute Lymphs (auto) 1.78 (1.0-4.6) Absolute Monos (auto) 0.66 (0.0-1.3) Lymphocytes % 15.5 L (24.0-44.0) % Monocytes % 5.8 (0.0-12.0) % Eosinophils % 2.4 (0.00-5.0) % Basophils % 0.2 (0.0-0.4) % Absolute Granulocytes 8.72 H (1.4-6.9) Basophils # 0.02 (0-0.4) Sodium (137-145) mmol/L Potassium (3.5-5.1) mmol/L Chloride (98-107) mmol/L Carbon Dioxide (22-30) mmol/L Anion Gap (5-15) MEQ/L BUN (7-17) mg/dL Creatinine (0.52-1.04) mg/dL Estimated GFR ML/MIN Glucose (74-106) mg/dL Calcium (8.4-10.2) mg/dL Total Bilirubin (0.2-1.3) mg/dL AST (14-36) U/L ALT (0-35) U/L Alkaline Phosphatase (38-126) U/L Troponin I (0.000-0.034) ng/mL Serum Total Protein (6.3-8.2) g/dL Albumin (3.5-5.0) g/dL Lipase (23-300) U/L Urine Color ALLYN (YELLOW) Urine Appearance CLOUDY (CLEAR) Urine pH 6.0 (5-6) Ur Specific Foster 1.014 (1.005-1.025) Urine Protein 30 (Negative) Urine Ketones NEGATIVE (NEGATIVE) Urine Blood NEGATIVE (0-5) Boone/ul Urine Nitrite NEGATIVE (NEGATIVE) Urine Bilirubin NEGATIVE (NEGATIVE) Urine Urobilinogen 4 (0-1) mg/dL Ur Leukocyte Esterase NEGATIVE (NEGATIVE) Urine WBC (Auto) NONE (0-5) /HPF Urine RBC (Auto) NONE (0-2) /HPF U Epithel Cells (Auto) MANY (FEW) /HPF Urine Bacteria (Auto) RARE (NEGATIVE) /HPF Urine Mucus (Auto) SLIGHT (NEGATIVE) /HPF Urine Culture Reflexed NO (NO) Urine Glucose NEGATIVE (NEGATIVE) mg/dL Urine HCG, Qual NEGATIVE (Negative) Ethyl Alcohol (0-10) mg/dL Slides for Path Review YES - Progress Progress: improved Progress Note: Case discussed with Dr. Khan. Dr. Khan advises transfer to 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 He advises adding on an EtOH level and a GGT. 09/08/21 11:09 Case discussed with Kailey Chacon nurse practitioner to Dr. Thompson who accepts transfer to [facility] however patient will need to be admitted to the hospitalist. 09/08/21 11:39 10/18/21 12:[address] Currie hospitalist at [facility] who accepts transfer. We are awaiting a bed assignment. 09/08/21 12:54 Patient states she is going to leave AMA. Patient states that she does not want to wait in the emergency department for an undetermined length of time as we are awaiting a bed. Patient states she does not want to ride an ambulance. Patient states she just wants to go home pack her items and drive to [facility] directly. Patient understands the risks of leaving AGAINST MEDICAL ADVICE. Patient is of sound mind. Patient is appropriate to make informed and independent medical decisions. Patient understands that leaving AGAINST MEDICAL ADVICE can result in delayed diagnosis, increased risk of morbidity, mortality, short and long-term disability including . In spite of these risks, patient has decided to leave AGAINST MEDICAL ADVICE. Patient understands that she may return to our ED at any point if she reconsiders. Patient agrees to follow-up with her primary care doctor within 48 hours for reevaluation. Patient voices no other complaints or concerns at this time. We will release patient AGAINST MEDICAL ADVICE per their request. Discussed with Dr.: Kalin Will see patient in: office Counseled pt/family regarding: lab results, diagnosis, rad results - Departure Departure Disposition: AMA Clinical Impression: Nausea & vomiting, Elevated lipase, Transaminitis, Elevated bilirubin, Alkaline phosphatase elevation, Hypokalemia, Lung granuloma, Peripancreatic stranding, Hepatomegaly, Nephrolithiasis Condition: Stable Critical Care Time: No Referrals: TAMELA KHAN [Primary Care Provider] - Additional Instructions: Discharge/Care Plan YURI MENJIVAR was seen on 09/08/21 in the Emergency Room. The patient was counseled regarding Diagnosis,Lab results, Imaging studies, need for follow up and when to return to the Emergency Room. Prescriptions given: Discharge Note I have spoken with the patient and/or caregivers. I have explained the patient's condition, diagnosis and treatment plan based on the information available to me at this time. I have answered the patient's and/or caregiver's questions and addressed any concerns. The patient and/or caregivers have as good understanding of the patient's diagnosis, condition and treatment plan as can be expected at this point. The vital signs have been stable. The patient's condition is stable and appropriate for discharge from the emergency department. The patient will pursue further outpatient evaluation with the primary care physician or other designated or consulting physician as outlined in the discharge instructions. The patient and/or caregivers are agreeable to this plan of care and follow-up instructions have been explained in detail. The patient a nd/or caregivers have received these instruction. The patient/and or caregivers are aware that any significant change in condition or worsening of symptoms should prompt an immediate return to this or the closest emergency department or call 911.
[2021-09-08] MEDS ORDERED: Sodium Chloride 0.9% 1000 ML 1,000 ML ONE (09:15)
[2021-09-08] MEDS ORDERED: Inapsine 5 MG/2 ML ONE (09:15)
[2021-09-08 09:39] LABS: Absolute Neutrophil Ct (ANC) 8.72 (1.4-6.9); BASOPHIL % 0.2 % (0.0-0.4); Basophil (Absolute #) 0.02 (0-0.4); Eosinophil % 2.4 % (0.00-5.0); Eosinophil (Absolute #) 0.28 (0-0.5); Hematocrit 47.1 % (35-47); Hemoglobin 15.2 gm/dl (12.0-16.0); Lymphocyte (Absolute #) 1.78 (1.0-4.6); Lymphocytes % 15.5 % (24.0-44.0); Mean Cell Volume 94.6 fl (78-100); Mean Corpuscular Hemoglobin 30.5 pg (26-32); Mean Corpuscular Hgb Concent. 32.3 g/dl (32-36); Monocyte (Absolute #) 0.66 (0.0-1.3); Monocytes % 5.8 % (0.0-12.0); Neutrophil % 76.1 % (36.0-66.0); Platelet Count 289 K/mm3 (150-450); Red Blood Count 4.98 M/mm3 (4.1-5.4); Red Cell Distribution Width 13.7 % (11.5-14.0); White Blood Count 11.5 K/mm3 (4.0-10.5)
[2021-09-08 09:43] LABS: ALBUMIN 4.9 g/dL (3.5-5.0); ALKALINE PHOSPHATASE 204 U/L (38-126); BLOOD UREA NITROGEN 9 mg/dL (7-17); CHLORIDE 98 mmol/L (98-107); Calcium 10.1 mg/dL (8.4-10.2); Carbon Dioxide 25 mmol/L (22-30); Creatinine 1 0.67 mg/dL (0.52-1.04); EST GLOMERULAR FILTRATION RATE > 60.0 ML/MIN; Glucose 96 mg/dL (74-106); LIPASE 327 U/L (23-300); Potassium 3.3 mmol/L (3.5-5.1); SGOT/AST 78 U/L (14-36); SGPT/ALT 92 U/L (0-35); SODIUM 137 mmol/L (137-145); Total Protein 8.9 g/dL (6.3-8.2)
[2021-09-08 09:45] LABS: Appearance CLOUDY (CLEAR); Bacteria RARE /HPF (NEGATIVE); Bilirubin NEGATIVE (NEGATIVE); Blood NEGATIVE Ery/ul (0-5); Epithelial Cells MANY /HPF (FEW); Glucose NEGATIVE (NEGATIVE); Ketones NEGATIVE (NEGATIVE); Leukocyte Esterase NEGATIVE (NEGATIVE); Mucus SLIGHT /HPF (NEGATIVE); Nitrite NEGATIVE (NEGATIVE); Protein,Urine Dip 30 (Negative); Specific Gravity 1.014 (1.005-1.025); Urobilinogen 4 mg/dL (0-1)
[2021-09-08 10:24] LABS: Slide Review 1 YES
[2021-09-08] MEDS ORDERED: TORAdol 30 mg Injection IM ONE (10:30)
[2021-09-08] MEDS ORDERED: TORAdol 30 mg Injection IV ONE (10:31)
[2021-09-08 10:39] VITALS: BP 145/94
[2021-09-08] MEDS ORDERED: TORAdol 30 mg Injection ONE (10:40)
--- NOTE | 2021-09-08 10:43 | XRAY ---
Indication: Abdomen pain. History pancreatitis. Multiple contiguous axial images obtained through the abdomen and pelvis without contrast. Comparison: August 08, 2021. Lung bases are clear with incidental small left lower lobe calcified granulomas. Heart is not enlarged. Noncontrasted stomach and bowel loops remain nonobstructed. Pancreas remains prominent with diminished peripancreatic stranding. Previous 2 pseudocysts have clear. No free fluid/air. Stable incidental tiny splenic calcified granulomas, 22 cm hepatomegaly, cholecystectomy, and nonobstructing bilateral renal micro-calculi. Remaining liver, spleen, adrenal glands, kidneys, ureters, bladder, and aorta are unremarkable for noncontrast exam. Impression: 1. Improving pancreatitis. Resolved pseudocysts. 2. Again incidental nonobstructing bilateral renal micro-calculi, hepatomegaly, and old granulomatous disease.
[2021-09-08 11:08] VITALS: PULSE 86; O2SAT 98
[2021-09-08] MEDS ORDERED: POTASSIUM CHLORIDE 20 mEq IN WATER 100ML 20 MEQ/100 ML BAG IV SCH (11:15)
--- NOTE | 2021-09-08 11:21 | XRAY ---
Indication: Abdomen pain. Cholecystectomy. Two-dimensional gallbladder sonogram performed. Comparison: July 23, 2011. There has been interval cholecystectomy. Common bile duct measures 5.8 mm, within normal limits. No intrahepatic biliary distention or obvious choledochal stone. Liver is enlarged measuring 20 cm. Remaining visualized liver and pancreas sonographically unremarkable. Right kidney measures 11.2 cm in length and demonstrates same day CT proven nonobstructing micro-calculi. Impression: Cholecystectomy and hepatomegaly. CT proven nonobstructing right renal micro-calculi. Remaining gallbladder sonogram is negative.
[2021-09-08] MEDS ORDERED: POTASSIUM CHLORIDE 20 mEq IN WATER 100ML 100 ML IV ONE (11:30)
== END 2021-09-08 13:00 | disposition left against medical advice (07) ==
LOC: ED 08:25
DX: R74.8 Abnormal levels of other serum enzymes (principal); E80.7 Disorder of bilirubin metabolism, unspecified; E87.6 Hypokalemia; J84.10 Pulmonary fibrosis, unspecified; H43 Disorders of vitreous body; K90.3 Pancreatic steatorrhea; R16.0 Hepatomegaly, not elsewhere classified; N20.0 Calculus of kidney
CPT/HCPCS: 36000; 36415; 74176; 76705; 80053; 81001; 82977; 83690; 84484; 84703; 85025; 96365; 96374; 96375; 99284; G0480; 80307; J1885; J3480

== ENCOUNTER 2022-07-02 01:04 | Emergency (ER) | payer OTHER ==
[2022-07-02 01:56] LABS: Epithelial Cells RARE /HPF (FEW); Mucus SLIGHT /HPF (NEGATIVE); WBC 0-2 /HPF (0-5)
[2022-07-02] MEDS ORDERED: CLONIDINE 0.1 MG TABLET PO ONE (01:56)
[2022-07-02 01:57] LABS: Appearance CLEAR (CLEAR); Bacteria NONE SEEN /HPF (NEGATIVE); Bilirubin NEGATIVE (NEGATIVE); Dipstick done @ ? MAIN LAB; Glucose NEGATIVE (NEGATIVE); Ketones NEGATIVE (NEGATIVE); Nitrite NEGATIVE (NEGATIVE); Protein,Urine Dip NEGATIVE (Negative); RBC NEGATIVE Ery/ul (0-5); Urine Cultured Indicated? NO; Urobilinogen 0.2 mg/dL (0-1)
[2022-07-02 01:57] LABS: Basophil (Absolute #) 0.02 x10^3/uL (0-0.4); Eosinophil % 0.4 % (0.00-5.0); Eosinophil (Absolute #) 0.04 x10^3/uL (0-0.5); Hematocrit 30.1 % (35-47); Hemoglobin 9.7 g/dL (12.0-16.0); Lymphocyte (Absolute #) 2.31 x10^3/uL (1.0-4.6); Lymphocytes % 20.7 % (24.0-44.0); Mean Cell Volume 98.4 fL (78-100); Mean Corpuscular Hemoglobin 31.7 pg (26-32); Mean Corpuscular Hgb Concent. 32.2 g/dL (32-36); Mean Platelet Volume 11.7 fL (7.5-11.0); Monocyte (Absolute #) 0.57 x10^3/uL (0.0-1.3); Monocytes % 5.1 % (0.0-12.0); Neutrophil % 73.2 % (36.0-66.0); Platelet Count 203 x10^3/uL (150-450); Red Blood Count 3.06 x10^6/uL (4.1-5.4); Red Cell Distribution Width 13.2 % (11.5-14.0); White Blood Count 11.2 x10^3/uL (4.0-10.5)
[2022-07-02] MEDS ORDERED: CLONIDINE 0.1 MG TABLET ONE (02:04)
[2022-07-02 02:15] LABS: ALBUMIN 3.9 g/dL (3.5-5.0); ALKALINE PHOSPHATASE 122 U/L (38-126); ANION GAP 13.7 MEQ/L (5-15); BLOOD UREA NITROGEN 11 mg/dL (7-17); CHLORIDE 106 mmol/L (98-107); Calcium 9.7 mg/dL (8.4-10.2); Carbon Dioxide 20 mmol/L (22-30); Creatinine 1 0.67 mg/dL (0.52-1.04); EST GLOMERULAR FILTRATION RATE > 60.0 ML/MIN; Glucose 99 mg/dL (74-106); Potassium 3.9 mmol/L (3.5-5.1); SGOT/AST 23 U/L (14-36); SGPT/ALT 15 U/L (0-35); SODIUM 136 mmol/L (137-145); Total Protein 8.1 g/dL (6.3-8.2)
[2022-07-02 02:17] LABS: INR 0.96 (0.8-3.0); PROTIME 10.2 SECONDS (9.4-12.5); PTT 24.3 SECONDS (25.1-36.5)
[2022-07-02 02:57] VITALS: O2SAT 99
--- NOTE | 2022-07-02 03:14 | ERPHSYRPT ---
- History of Present Illness Time Seen by Provider: 07/02/22 01:25 Source: patient Exam Limitations: no limitations Patient Subjective Stated Complaint: pt states she was feeling unwell after work and took her bp at home last bp at home was 181/119. Triage Nursing Assessment: pt alert and oriented, answers questions approp. pt ambualtory with steady gait noted. respirations nonlabored. skin warm and dry, heart rate 98 on monitor, sinus rhythm. 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 She has a history of hypertension even before being and he is on Norvasc 5 mg each day. After work this evening, she was generally not feeling well and took her blood pressure and it was 181/119. Patient arrived to the emergency department and her blood pressure reading was 171/99. Patient takes her Norvasc 5 mg each day at around 11 AM. She has not taken any other blood pressure medicine today. She does not have any visual changes. She has no chest pain. She does not have a headache. Timing/Duration: today Severity: mild (To moderate) Associated Symptoms: denies symptoms Allergies/Adverse Reactions: Penicillins Adverse Reaction (Mild, Verified 07/02/22 01:20) Rash pt states she is not had problems with antibitics related to pcn as an adult Home Medications: Omeprazole 20 mg PO DAILY 11/04/20 [History] Amlodipine Besylate 5 mg PO DAILY 06/23/21 [History] Ondansetron ODT 4 MG [Zofran Odt 4 mg] 4 mg PO Q4H PRN PRN 07/16/21 [History] Aspirin EC 81 mg [Ecotrin 81 mg] 81 mg PO DAILY 07/02/22 [History] No122/Iron/Folic Acid [ Multi Tablet] 1 each PO DAILY 07/02/22 [History] Hx Tetanus, Diphtheria Vaccination/Date Given: Yes Hx Influenza Vaccination/Date Given: No Hx Pneumococcal Vaccination/Date Given: No Immunizations Up to Date: Yes Travel Risk - International Travel Have you traveled outside of the country in past 3 weeks: No - Coronavirus Screening Are you exhibiting any of the following symptoms?: No Close contact with a COVID-19 positive Pt in past 14-21 Days: No - Vaccine Status Have you recieved a Covid-19 vaccination: Yes 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: [employer] - Vaccination Dates Date of 2cond Vaccination (if applicable): may 2021 - Review of Systems Constitutional: No Symptoms Eyes: No Symptoms Ears, Nose, & Throat: No Symptoms Respiratory: No Symptoms Cardiac: No Symptoms Abdominal/Gastrointestinal: No Symptoms Genitourinary Symptoms: No Symptoms Musculoskeletal: No Symptoms Skin: No Symptoms Neurological: No Symptoms Psychological: No Symptoms Endocrine: No Symptoms Hematologic/Lymphatic: No Symptoms Immunological/Allergic: No Symptoms All Other Systems: Reviewed and Negative - Past Medical History Pertinent Past Medical History: Yes Neurological History: No Pertinent History ENT History: No Pertinent History Cardiac History: Hypertension Respiratory History: No Pertinent History Endocrine Medical History: No Pertinent History Musculoskeletal History: No Pertinent History GI Medical History: Pancreatitis History: No Pertinent History Psycho-Social History: No Pertinent History Female Reproductive Disorders: Endometriosis Other Medical History: . - Past Surgical History Past Surgical History: Yes Neuro Surgical History: No Pertinent History Cardiac: No Pertinent History Respiratory: No Pertinent History Gastrointestinal: Appendectomy, Cholecystectomy Genitourinary: No Pertinent History Musculoskeletal: No Pertinent History Female Surgical History: No Pertinent History Other Surgical History: exploratory laparoscopy per Dr Hidalgo 2014- negative, wisdom teeth. - Social History Smoking Status: Former smoker How long have you smoked: 12 yrs Exposure to second hand smoke: Yes Alcohol Use: Socially Drug Use: none Patient Lives Alone: No Significant Family History: no pertinent family hx - Female History Hx Now: Yes Expected Date of Delivery: 10/12/22 Gestational Age: 25 weeks - Nursing Vital Signs Nursing Vital Signs: Initial Vital Signs Temperature 97.8 F 07/02/22 01:09 Pulse Rate 97 H 07/02/22 01:09 Respiratory Rate 16 07/02/22 01:09 Blood Pressure 172/99 07/02/22 01:09 O2 Sat by Pulse Oximetry 100 07/02/22 01:09 Pain Scale Pain Intensity 3 - Physical Exam General Appearance: no apparent distress, alert, anxiety Eye Exam: PERRL/EOMI, eyes nml inspection Ears, Nose, Throat Exam: normal ENT inspection, moist mucous membranes Neck Exam: normal inspection, non-tender, supple, full range of motion Respiratory Exam: normal breath sounds, lungs clear, airway intact, No chest ten derness, No respiratory distress Cardiovascular Exam: regular rate/rhythm, normal heart sounds, normal peripheral pulses Gastrointestinal/Abdomen Exam: soft, normal bowel sounds, No tenderness Pelvic Exam: not done Rectal Exam: not done Back Exam: normal inspection, normal range of motion, No CVA tenderness, No vertebral tenderness Extremity Exam: normal inspection, normal range of motion, pelvis stable Neurologic Exam: alert, oriented x 3, cooperative, 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, normal mood/affect, nml cerebellar function, nml station & gait, sensation nml Skin Exam: normal color, warm, dry Lymphatic Exam: No adenopathy SpO2 Interpretation: normal SpO2: 99 O2 Delivery: Room Air - Course Nursing assessment & vital signs reviewed: Yes Ordered Tests: Active Orders 24 hr Category Date Time Status EKG-ER Only STAT Care 07/02/22 01:37 Active Heart Tones-ED STAT Care 07/02/22 01:36 Active CBC Q48H Lab 07/03/22 06:00 Ordered CBC Q48H Lab 07/05/22 06:00 Ordered CBC Q48H Lab 07/07/22 06:00 Ordered CBC Q48H Lab 07/09/22 06:00 Ordered CBC Q48H Lab 07/11/22 06:00 Ordered CBC Q48H Lab 07/13/22 06:00 Ordered CBC Q48H Lab 07/15/22 06:00 Ordered CBC W DIFF Stat Lab 07/02/22 01:53 Completed CMP Stat Lab 07/02/22 01:53 Completed PROTIME WITH INR Stat Lab 07/02/22 01:53 Completed PTT Q4H Lab 07/03/22 01:45 Ordered PTT Q4H Lab 07/03/22 05:45 Ordered PTT Q4H Lab 07/03/22 09:45 Ordered PTT Q4H Lab 07/03/22 13:45 Ordered PTT Q4H Lab 07/03/22 17:45 Ordered PTT Q4H Lab 07/03/22 21:45 Ordered PTT Stat Lab 07/02/22 01:53 Completed TROPONIN Stat Lab 07/02/22 01:53 Completed UA W/RFX CULTURE Stat Lab 07/02/22 01:29 Completed Medication Summary Discontinued Medications Generic Name Dose Route Start Last Admin Trade Name Freq PRN Reason Stop Dose Admin Clonidine 0.1 mg 07/02/22 01:56 07/02/22 02:07 Clonidine Hcl 0.1 Mg Tablet PO 07/02/22 01:57 0.1 mg STAT ONE Administration Clonidine Confirm 07/02/22 02:04 Clonidine Hcl 0.1 Mg Tablet Administered 07/02/22 02:05 Dose 0.1 mg .ROUTE .STK-MED ONE Lab/Rad Data: Laboratory Result Diagrams 07/02/22 01:53 07/02/22 01:53 Laboratory Results 07/02/22 07/02/22 07/02/22 Range/Units 01:53 01:53 01:53 WBC (4.0-10.5) x10^3/uL RBC (4.1-5.4) x10^6/uL Hgb (12.0-16.0) g/dL Hct (35-47) % MCV (78-100) fL MCH (26-32) pg MCHC (32-36) g/dL RDW (11.5-14.0) % Plt Count (150-450) x10^3/uL MPV (7.5-11.0) fL Gran % (36.0-66.0) % Immature Gran % (Auto) (0.00-0.4) % Nucleat RBC Rel Count (0.00-0.1) % Eos # (Auto) (0-0.5) x10^3/uL Immature Gran # (Auto) (0.00-0.03) x10^3u/L Absolute Lymphs (auto) (1.0-4.6) x10^3/uL Absolute Monos (auto) (0.0-1.3) x10^3/uL Absolute Nucleated RBC (0.00-0.01) x10^3u/L Lymphocytes % (24.0-44.0) % Monocytes % (0.0-12.0) % Eosinophils % (0.00-5.0) % Basophils % (0.0-0.4) % Absolute Granulocytes (1.4-6.9) x10^3/uL Basophils # (0-0.4) x10^3/uL PT 10.2 (9.4-12.5) SECONDS INR 0.96 (0.8-3.0) APTT 24.3 L (25.1-36.5) SECONDS Sodium 136 L (137-145) mmol/L Potassium 3.9 (3.5-5.1) mmol/L Chloride 106 (98-107) mmol/L Carbon Dioxide 20 L (22-30) mmol/L Anion Gap 13.7 (5-15) MEQ/L BUN 11 (7-17) mg/dL Creatinine 0.67 (0.52-1.04) mg/dL Estimated GFR > 60.0 ML/MIN Glucose 99 (74-106) mg/dL Calcium 9.7 (8.4-10.2) mg/dL Total Bilirubin 0.30 (0.2-1.3) mg/dL AST 23 (14-36) U/L ALT 15 (0-35) U/L Alkaline Phosphatase 122 (38-126) U/L Troponin I < 0.012 (0.000-0.034) ng/mL Serum Total Protein 8.1 (6.3-8.2) g/dL Albumin 3.9 (3.5-5.0) g/dL Urinalys Dipstick Clnc Urine Color (YELLOW) Urine Appearance (CLEAR) Urine pH (5-6) Ur Specific [place] (1.005-1.025) POC Urine Protein Conf (Negative) Urine Ketones (NEGATIVE) Urine Nitrite (NEGATIVE) Urine Bilirubin (NEGATIVE) Urine Urobilinogen (0-1) mg/dL Urine Leukocytes (NEGATIVE) Urine WBC (Auto) (0-5) /HPF Urine RBC (Auto) (0-2) /HPF U Epithel Cells (Auto) (FEW) /HPF Urine Bacteria (Auto) (NEGATIVE) /HPF Urine RBC (0-5) [place]/ul Urine Mucus (Auto) (NEGATIVE) /HPF Ur Culture Indicated? Urine Glucose (NEGATIVE) mg/dL 07/02/22 07/02/22 Range/Units 01:53 01:29 WBC 11.2 H (4.0-10.5) x10^3/uL RBC 3.06 L (4.1-5.4) x10^6/uL Hgb 9.7 L (12.0-16.0) g/dL Hct 30.1 L (35-47) % MCV 98.4 (78-100) fL MCH 31.7 (26-32) pg MCHC 32.2 (32-36) g/dL RDW 13.2 (11.5-14.0) % Plt Count 203 (150-450) x10^3/uL MPV 11.7 H (7.5-11.0) fL Gran % 73.2 H (36.0-66.0) % Immature Gran % (Auto) 0.4 (0.00-0.4) % Nucleat RBC Rel Count 0.0 (0.00-0.1) % Eos # (Auto) 0.04 (0-0.5) x10^3/uL Immature Gran # (Auto) 0.04 H (0.00-0.03) x10^3u/L Absolute Lymphs (auto) 2.31 (1.0-4.6) x10^3/uL Absolute Monos (auto) 0.57 (0.0-1.3) x10^3/uL Absolute Nucleated RBC 0.00 (0.00-0.01) x10^3u/L Lymphocytes % 20.7 L (24.0-44.0) % Monocytes % 5.1 (0.0-12.0) % Eosinophils % 0.4 (0.00-5.0) % Basophils % 0.2 (0.0-0.4) % Absolute Granulocytes 8.20 H (1.4-6.9) x10^3/uL Basophils # 0.02 (0-0.4) x10^3/uL PT (9.4-12.5) SECONDS INR (0.8-3.0) APTT (25.1-36.5) SECONDS Sodium (137-145) mmol/L Potassium (3.5-5.1) mmol/L Chloride (98-107) mmol/L Carbon Dioxide (22-30) mmol/L Anion Gap (5-15) MEQ/L BUN (7-17) mg/dL Creatinine (0.52-1.04) mg/dL Estimated GFR ML/MIN Glucose (74-106) mg/dL Calcium (8.4-10.2) mg/dL Total Bilirubin (0.2-1.3) mg/dL AST (14-36) U/L ALT (0-35) U/L Alkaline Phosphatase (38-126) U/L Troponin I (0.000-0.034) ng/mL Serum Total Protein (6.3-8.2) g/dL Albumin (3.5-5.0) g/dL Urinalys Dipstick Clnc MAIN LAB Urine Color LT.YELLOW (YELLOW) Urine Appearance CLEAR (CLEAR) Urine pH 7.0 (5-6) Ur Specific [place] 1.010 (1.005-1.025) POC Urine Protein Conf NEGATIVE (Negative) Urine Ketones NEGATIVE (NEGATIVE) Urine Nitrite NEGATIVE (NEGATIVE) Urine Bilirubin NEGATIVE (NEGATIVE) Urine Urobilinogen 0.2 (0-1) mg/dL Urine Leukocytes NEGATIVE (NEGATIVE) Urine WBC (Auto) 0-2 (0-5) /HPF Urine RBC (Auto) NONE (0-2) /HPF U Epithel Cells (Auto) RARE (FEW) /HPF Urine Bacteria (Auto) NONE SEEN (NEGATIVE) /HPF Urine RBC NEGATIVE (0-5) [place]/ul Urine Mucus (Auto) SLIGHT (NEGATIVE) /HPF Ur Culture Indicated? NO Urine Glucose NEGATIVE (NEGATIVE) mg/dL - Progress Progress Note: 07/02/22 03:[address] Romero, the patient's shuttle operator. I reviewed the patient complaint, history, physical findings, results of her laboratory work-up. The patient does not have any evidence of preeclampsia. She responded well to clonidine 0.1 mg. Her blood pressure at discharge is 137/81. Patient states she feels feeling well. Dr. Romero wants her to increase her Norvasc to 10 mg each day. She may be discharged to home and she is to call his office tomorrow to make up follow-up appointment. Counseled pt/family regarding: lab results, diagnosis, need for follow-up - Departure Departure Disposition: Home Clinical Impression: Hypertension affecting Condition: Stable Critical Care Time: No Referrals: TAMELA KHAN [Primary Care Provider] - Follow up/PCP as directed Additional Instructions: Drink plenty of fluids. Increase your Norvasc to 10 mg orally each day. Call your shuttle operator's office later today to make arrangements for follow-up appointment.
[2022-07-02 03:25] VITALS: BP 134/82; PULSE 66
== END 2022-07-02 03:31 | disposition home or self-care (01) ==
LOC: ED 01:04
DX: O10.012 Pre-existing essential hypertension complicating pregnancy, second trimester (principal); Z3A.25 25 weeks gestation of pregnancy; Z79.899 Other long term (current) drug therapy
CPT/HCPCS: 36415; 80053; 81015; 84484; 85025; 85610; 85730; 93005; 99284; A9270-GY

== ENCOUNTER 2022-07-05 00:49 | Observation (INO) | payer OTHER ==
[2022-07-05 01:55] LABS: Amphetamine,Urine NEGATIVE (NEGATIVE); Barbiturate,Urine NEGATIVE (NEGATIVE); Benzodiazepine,Urine NEGATIVE (NEGATIVE); Methadone,Urine NEGATIVE (NEGATIVE); Opiate,Urine NEGATIVE (NEGATIVE); PCP,Urine NEGATIVE (NEGATIVE); THC,Urine NEGATIVE (NEGATIVE)
[2022-07-05 02:18] LABS: Appearance CLEAR (CLEAR)
[2022-07-05 02:19] LABS: Bilirubin NEGATIVE (NEGATIVE); Dipstick done @ ? MAIN LAB; Glucose NEGATIVE (NEGATIVE); Ketones NEGATIVE (NEGATIVE); Nitrite NEGATIVE (NEGATIVE); Ph 6.5 (5-6); Protein,Urine Dip NEGATIVE (Negative); RBC NEGATIVE Ery/ul (0-5); Urobilinogen 0.2 mg/dL (0-1)
[2022-07-05 02:26] LABS: Epithelial Cells RARE /HPF (FEW); Mucus SLIGHT /HPF (NEGATIVE)
[2022-07-05 02:27] LABS: Urine Cultured Indicated? NO
[2022-07-05 02:34] VITALS: O2SAT 99
[2022-07-05 02:38] VITALS: BP 137/77; PULSE 61
[2022-07-05] MEDS ORDERED: Lactated Ringers 1,000 ML IV ONE ×2 (02:57→03:30)
[2022-07-05 03:52] LABS: Absolute Neutrophil Ct (ANC) 6.19 x10^3/uL (1.4-6.9); Basophil (Absolute #) 0.02 x10^3/uL (0-0.4); Eosinophil % 0.7 % (0.00-5.0); Eosinophil (Absolute #) 0.06 x10^3/uL (0-0.5); Hemoglobin 10.1 g/dL (12.0-16.0); Lymphocyte (Absolute #) 1.85 x10^3/uL (1.0-4.6); Lymphocytes % 21.6 % (24.0-44.0); Mean Cell Volume 97.2 fL (78-100); Mean Corpuscular Hemoglobin 31.7 pg (26-32); Mean Corpuscular Hgb Concent. 32.6 g/dL (32-36); Mean Platelet Volume 12.2 fL (7.5-11.0); Monocyte (Absolute #) 0.41 x10^3/uL (0.0-1.3); Monocytes % 4.8 % (0.0-12.0); Neutrophil % 72.3 % (36.0-66.0); Platelet Count 214 x10^3/uL (150-450); Red Blood Count 3.19 x10^6/uL (4.1-5.4); Red Cell Distribution Width 13.2 % (11.5-14.0); White Blood Count 8.6 x10^3/uL (4.0-10.5)
[2022-07-05 04:07] LABS: ALBUMIN 3.6 g/dL (3.5-5.0); ALKALINE PHOSPHATASE 130 U/L (38-126); AMYLASE 117 U/L (30-110); ANION GAP 11.1 MEQ/L (5-15); BLOOD UREA NITROGEN 10 mg/dL (7-17); CHLORIDE 109 mmol/L (98-107); Calcium 10.3 mg/dL (8.4-10.2); Carbon Dioxide 20 mmol/L (22-30); Creatinine 1 0.46 mg/dL (0.52-1.04); EST GLOMERULAR FILTRATION RATE > 60.0 ML/MIN; Glucose 87 mg/dL (74-106); LIPASE 140 U/L (23-300); Potassium 4.2 mmol/L (3.5-5.1); SGOT/AST 25 U/L (14-36); SGPT/ALT 18 U/L (0-35); SODIUM 136 mmol/L (137-145); Total Protein 7.5 g/dL (6.3-8.2); Uric Acid 4.2 mg/dL (2.6-6.0)
[2022-07-05] MEDS ORDERED: Zofran 4 MG/2 ML VIAL IV STA (04:21)
[2022-07-05] MEDS ORDERED: MORPHINE SULFATE 2 MG INJ IV ONE (04:22)
[2022-07-05] MEDS ORDERED: Zofran 4 MG/2 ML VIAL ONE (04:27)
== END 2022-07-05 05:45 | disposition home or self-care (01) ==
LOC: OB 00:49
PROVIDERS: ADMIT Obstetrics & Gynecology; ATTEND Obstetrics & Gynecology
DX: Z34.02 Encounter for supervision of normal first pregnancy, second trimester (principal); Z3A.25 25 weeks gestation of pregnancy
CPT/HCPCS: 36415; 80053; 80307; 81015; 82150; 83690; 84550; 85025; G0378; J2270; J2405

== ENCOUNTER 2022-08-18 14:07 | Observation (INO) | payer OTHER ==
[2022-08-18 14:54] LABS: Absolute Neutrophil Ct (ANC) 7.76 x10^3/uL (1.4-6.9); Basophil (Absolute #) 0.02 x10^3/uL (0-0.4); Eosinophil % 0.6 % (0.00-5.0); Eosinophil (Absolute #) 0.06 x10^3/uL (0-0.5); Hematocrit 31.4 % (35-47); Hemoglobin 10.6 g/dL (12.0-16.0); Lymphocyte (Absolute #) 2.35 x10^3/uL (1.0-4.6); Lymphocytes % 21.9 % (24.0-44.0); Mean Corpuscular Hemoglobin 31.7 pg (26-32); Mean Corpuscular Hgb Concent. 33.8 g/dL (32-36); Mean Platelet Volume 12.5 fL (7.5-11.0); Monocyte (Absolute #) 0.52 x10^3/uL (0.0-1.3); Monocytes % 4.8 % (0.0-12.0); Neutrophil % 72.1 % (36.0-66.0); Platelet Count 219 x10^3/uL (150-450); Red Blood Count 3.34 x10^6/uL (4.1-5.4); Red Cell Distribution Width 12.5 % (11.5-14.0); White Blood Count 10.8 x10^3/uL (4.0-10.5)
[2022-08-18 14:57] LABS: Appearance CLEAR (CLEAR); Bilirubin NEGATIVE (NEGATIVE); Epithelial Cells RARE /HPF (FEW); Glucose NEGATIVE (NEGATIVE); Ketones NEGATIVE (NEGATIVE); RBC 0-2 /HPF (0-2); Specific Gravity 1.015 (1.005-1.025); WBC 0-2 /HPF (0-5)
[2022-08-18 14:58] LABS: Dipstick done @ ? MAIN LAB; Nitrite NEGATIVE (NEGATIVE); Protein,Urine Dip 100 (Negative); RBC NEGATIVE Ery/ul (0-5); Urine Cultured Indicated? NO; Urobilinogen 0.2 mg/dL (0-1)
[2022-08-18 14:59] VITALS: PULSE 74; O2SAT 96
[2022-08-18 15:08] LABS: ALBUMIN 3.7 g/dL (3.5-5.0); ALKALINE PHOSPHATASE 166 U/L (38-126); BLOOD UREA NITROGEN 10 mg/dL (7-17); CHLORIDE 108 mmol/L (98-107); Calcium 9.3 mg/dL (8.4-10.2); Carbon Dioxide 18 mmol/L (22-30); Creatinine 1 0.52 mg/dL (0.52-1.04); EST GLOMERULAR FILTRATION RATE > 60.0 ML/MIN; Glucose 97 mg/dL (74-106); SGOT/AST 24 U/L (14-36); SGPT/ALT 22 U/L (0-35); SODIUM 136 mmol/L (137-145); Total Protein 7.6 g/dL (6.3-8.2); Uric Acid 5.3 mg/dL (2.6-6.0)
[2022-08-18 15:15] LABS: Creatinine, Urine Random 34.2 mg/dl; Protein Creatinine Ratio, Ran. 2.11 mg/mg (0.0-0.15)
[2022-08-18 15:18] VITALS: BP 141/85
== END 2022-08-18 15:45 | disposition home or self-care (01) ==
LOC: OB 14:07 → OB.NST 14:07 → OB 14:08
PROVIDERS: ADMIT Obstetrics & Gynecology; ATTEND Obstetrics & Gynecology
DX: Z34.03 Encounter for supervision of normal first pregnancy, third trimester (principal); Z3A.32 32 weeks gestation of pregnancy
CPT/HCPCS: 36415; 59025; 80053; 81015; 82570; 84156; 84550; 85025; 99213; G0378

== ENCOUNTER 2023-03-07 14:34 | Emergency (ER) | payer OTHER ==
[2023-03-07 14:56] VITALS: O2SAT 98
--- NOTE | 2023-03-07 15:36 | ERPHSYRPT ---
- History of Present Illness Time Seen by Provider: 03/07/23 15:35 Historian: patient Exam Limitations: no limitations Patient Subjective Stated Complaint: pt here for vomiting, right sided abd pain for 3 days now, no fever, no loose stools Triage Nursing Assessment: pt alert, walked in, resp easy, skin w/d/p, abd soft, face mask in place, no edema noted Timing/Duration: day(s) (3) Activities at Onset: none Quality: cramping Abdominal Pain Onset Location: epigastric Pain Radiation: no radiation Severity of Pain-Max: moderate Severity of Pain-Current: moderate Modifying Factors: Improves With: nothing Associated Symptoms: nausea Previous symptoms: same symptoms as today, other (hx pancreatitis) Allergies/Adverse Reactions: Penicillins Adverse Reaction (Mild, Verified 03/07/23 14:56) Rash pt states she is not had problems with antibitics related to pcn as an adult Home Medications: Omeprazole 20 mg PO DAILY 11/04/20 [History] Amlodipine Besylate 10 mg PO DAILY 06/23/21 [History] Hx Tetanus, Diphtheria Vaccination/Date Given: No Hx Influenza Vaccination/Date Given: No Hx Pneumococcal Vaccination/Date Given: No Immunizations Up to Date: No Travel Risk - International Travel Have you traveled outside of the country in past 3 weeks: No - Coronavirus Screening Are you exhibiting any of the following symptoms?: No Close contact with a COVID-19 positive Pt in past 14-21 Days: No - Vaccine Status Have you recieved a Covid-19 vaccination: 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: [employer] - Vaccination Dates Date of 2cond Vaccination (if applicable): 05/28/21 - Review of Systems Constitutional: No Symptoms Eyes: No Symptoms Ears, Nose, & Throat: No Symptoms Respiratory: No Symptoms Cardiac: No Symptoms Abdominal/Gastrointestinal: Abdominal Pain, Nausea Genitourinary Symptoms: No Symptoms Musculoskeletal: No Symptoms Skin: No Symptoms Neurological: No Symptoms Psychological: No Symptoms Endocrine: No Symptoms Hematologic/Lymphatic: No Symptoms Immunological/Allergic: No Symptoms All Other Systems: Reviewed and Negative - Past Medical History Pertinent Past Medical History: Yes Neurological History: No Pertinent History ENT History: No Pertinent History Cardiac History: Hypertension Respiratory History: No Pertinent History Endocrine Medical History: No Pertinent History Musculoskeletal History: No Pertinent History GI Medical History: Pancreatitis History: No Pertinent History Psycho-Social History: No Pertinent History Female Reproductive Disorders: Endometriosis Other Medical History: . - Past Surgical History Past Surgical History: Yes Neuro Surgical History: No Pertinent History Cardiac: No Pertinent History Respiratory: No Pertinent History Gastrointestinal: Appendectomy, Cholecystectomy Genitourinary: No Pertinent History Musculoskeletal: No Pertinent History Female Surgical History: No Pertinent History Other Surgical History: exploratory laparoscopy per Dr Hidalgo 2014- negative, wisdom teeth. - Social History Smoking Status: Never smoker How long have you smoked: 10 yrs Exposure to second hand smoke: No Alcohol Use: Socially Drug Use: none Patient Lives Alone: No Significant Family History: no pertinent family hx - Female History Hx Last Menstrual Period: 4 months ago Hx Now: No (unsure) - Nursing Vital Signs Nursing Vital Signs: Initial Vital Signs Temperature 97.0 F 03/07/23 14:55 Pulse Rate 100 H 03/07/23 14:55 Respiratory Rate 18 03/07/23 14:55 Blood Pressure 168/96 03/07/23 14:55 O2 Sat by Pulse Oximetry 98 03/07/23 14:55 Pain Scale Pain Intensity 7 - Physical Exam General Appearance: mild distress Eye Exam: PERRL/EOMI Ears, Nose, Throat Exam: normal ENT inspection Neck Exam: normal inspection Respiratory Exam: normal breath sounds Cardiovascular Exam: regular rate/rhythm, normal heart sounds Gastrointestinal/Abdomen Exam: soft, normal bowel sounds, tenderness (upper abdomen) Back Exam: normal inspection Extremity Exam: normal inspection, normal range of motion Neurologic Exam: alert, oriented x 3, cooperative Skin Exam: normal color, warm, dry SpO2 Interpretation: normal SpO2: 98 O2 Delivery: Room Air - Course Nursing assessment & vital signs reviewed: Yes - CT Exams Abdomen/Pelvis CT Interpretation: Negative, Tele-radiologist Report Ordered Tests: Active Orders 24 hr Category Date Time Status ABDOMEN AND PELVIS W CONTRAST [CT] Stat Exams 03/07/23 18:32 Completed CBC W DIFF Stat Lab 03/07/23 15:50 Completed CMP Stat Lab 03/07/23 15:50 Completed CULTURE,URINE Stat Lab 03/07/23 15:45 Results HCG QUALITATIVE, SERUM Stat Lab 03/07/23 15:45 Completed LIPASE Stat Lab 03/07/23 15:50 Completed UA W/RFX UR CULTURE Stat Lab 03/07/23 15:45 Completed Medication Summary Discontinued Medications Generic Name Dose Route Start Last Admin Trade Name Freq PRN Reason Stop Dose Admin Hydromorphone HCl 1 mg 03/07/23 15:44 03/07/23 16:07 Hydromorphone 1 Mg/1ml Inj 1 Mg/Ml Syringe IV 03/07/23 15:45 1 mg STAT ONE Administration Hydromorphone HCl Confirm 03/07/23 16:02 Hydromorphone 1 Mg/1ml Inj 1 Mg/Ml Syringe Administered 03/07/23 16:03 Dose 1 mg .ROUTE .STK-MED ONE Sodium Chloride 1,000 mls @ 999 mls/hr 03/07/23 15:45 03/07/23 17:13 Sodium Chloride 0.9% 1000 Ml IV 03/07/23 16:45 Infused .Q1H1M STA Infusion Sodium Chloride Confirm 03/07/23 16:02 Sodium Chloride 0.9% 1000 Ml Administered 03/07/23 16:03 Dose 1,000 mls @ ud .ROUTE .STK-MED ONE Ondansetron HCl 4 mg 03/07/23 15:44 03/07/23 16:06 Ondansetron Hcl 4 Mg/2 Ml Vial IV 03/07/23 15:45 4 mg STAT ONE Administration Ondansetron HCl Confirm 03/07/23 16:02 Ondansetron Hcl 4 Mg/2 Ml Vial Administered 03/07/23 16:03 Dose 4 mg .ROUTE .STK-MED ONE Lab/Rad Data: Laboratory Result Diagrams 03/07/23 15:50 03/07/23 15:50 Laboratory Results 03/07/23 03/07/23 03/07/23 Range/Units 15:50 15:50 15:50 WBC 8.8 (4.0-10.5) x10^3/uL RBC 4.20 (4.1-5.4) x10^6/uL Hgb 12.3 (12.0-16.0) g/dL Hct 37.6 (35-47) % MCV 89.5 (78-100) fL MCH 29.3 (26-32) pg MCHC 32.7 (32-36) g/dL RDW 13.1 (11.5-14.0) % Plt Count 289 (150-450) x10^3/uL MPV 11.0 (7.5-11.0) fL Gran % 67.4 H (36.0-66.0) % Immature Gran % (Auto) 0.2 (0.00-0.4) % Nucleat RBC Rel Count 0.0 (0.00-0.1) % Eos # (Auto) 0.06 (0-0.5) x10^3/uL Immature Gran # (Auto) 0.02 (0.00-0.03) x10^3u/L Absolute Lymphs (auto) 2.31 (1.0-4.6) x10^3/uL Absolute Monos (auto) 0.45 (0.0-1.3) x10^3/uL Absolute Nucleated RBC 0.00 (0.00-0.01) x10^3u/L Lymphocytes % 26.3 (24.0-44.0) % Monocytes % 5.1 (0.0-12.0) % Eosinophils % 0.7 (0.00-5.0) % Basophils % 0.3 (0.0-0.4) % Absolute Granulocytes 5.92 (1.4-6.9) x10^3/uL Basophils # 0.03 (0-0.4) x10^3/uL Sodium 143 (137-145) mmol/L Potassium 3.8 (3.5-5.1) mmol/L Chloride 105 (98-107) mmol/L Carbon Dioxide 23 (22-30) mmol/L Anion Gap 18.5 H (5-15) MEQ/L BUN 5 L (7-17) mg/dL Creatinine 0.58 (0.52-1.04) mg/dL Estimated GFR > 60.0 ML/MIN Glucose 138 H (74-106) mg/dL Calcium 9.8 (8.4-10.2) mg/dL Total Bilirubin 0.50 (0.2-1.3) mg/dL AST 36 (14-36) U/L ALT 33 (0-35) U/L Alkaline Phosphatase 105 (38-126) U/L Serum Total Protein 8.8 H (6.3-8.2) g/dL Albumin 4.8 (3.5-5.0) g/dL Lipase 156 (23-300) U/L Serum HCG, Qual (NEGATIVE) Urine Color (Yellow) Urine Appearance (Clear) Urine pH (4.6-8.0) Ur Specific [employer] (1.005-1.030) Urine Protein (Negative) Urine Glucose (UA) (Negative) mg/dL Urine Ketones (Negative) Urine Blood (Negative) Urine Nitrite (Negative) Urine Bilirubin (Negative) Urine Urobilinogen (0.2) mg/dL Ur Leukocyte Esterase (Negative) U Hyaline Cast (Auto) (0-2) /LPF Urine Microscopic RBC (0-5) /HPF Urine Microscopic WBC (0-5) /HPF Ur Epithelial Cells (None Seen) /HPF Urine Bacteria (None Seen) /HPF Urine Culture Reflexed (NO) 03/07/23 03/07/23 Range/Units 15:45 15:45 WBC (4.0-10.5) x10^3/uL RBC (4.1-5.4) x10^6/uL Hgb (12.0-16.0) g/dL Hct (35-47) % MCV (78-100) fL MCH (26-32) pg MCHC (32-36) g/dL RDW (11.5-14.0) % Plt Count (150-450) x10^3/uL MPV (7.5-11.0) fL Gran % (36.0-66.0) % Immature Gran % (Auto) (0.00-0.4) % Nucleat RBC Rel Count (0.00-0.1) % Eos # (Auto) (0-0.5) x10^3/uL Immature Gran # (Auto) (0.00-0.03) x10^3u/L Absolute Lymphs (auto) (1.0-4.6) x10^3/uL Absolute Monos (auto) (0.0-1.3) x10^3/uL Absolute Nucleated RBC (0.00-0.01) x10^3u/L Lymphocytes % (24.0-44.0) % Monocytes % (0.0-12.0) % Eosinophils % (0.00-5.0) % Basophils % (0.0-0.4) % Absolute Granulocytes (1.4-6.9) x10^3/uL Basophils # (0-0.4) x10^3/uL Sodium (137-145) mmol/L Potassium (3.5-5.1) mmol/L Chloride (98-107) mmol/L Carbon Dioxide (22-30) mmol/L Anion Gap (5-15) MEQ/L BUN (7-17) mg/dL Creatinine (0.52-1.04) mg/dL Estimated GFR ML/MIN Glucose (74-106) mg/dL Calcium (8.4-10.2) mg/dL Total Bilirubin (0.2-1.3) mg/dL AST (14-36) U/L ALT (0-35) U/L Alkaline Phosphatase (38-126) U/L Serum Total Protein (6.3-8.2) g/dL Albumin (3.5-5.0) g/dL Lipase (23-300) U/L Serum HCG, Qual NEGATIVE (NEGATIVE) Urine Color Yellow (Yellow) Urine Appearance Clear (Clear) Urine pH 6.5 (4.6-8.0) Ur Specific [employer] 1.010 (1.005-1.030) Urine Protein 100 A (Negative) Urine Glucose (UA) Negative (Negative) mg/dL Urine Ketones Negative (Negative) Urine Blood Negative (Negative) Urine Nitrite Negative (Negative) Urine Bilirubin Negative (Negative) Urine Urobilinogen 0.2 (0.2) mg/dL Ur Leukocyte Esterase Trace A (Negative) U Hyaline Cast (Auto) NONE SEEN (0-2) /LPF Urine Microscopic RBC 0-2 (0-5) /HPF Urine Microscopic WBC 6-10 A (0-5) /HPF Ur Epithelial Cells Few (None Seen) /HPF Urine Bacteria None Seen (None Seen) /HPF Urine Culture Reflexed YES (NO) - Progress Progress: improved Progress Note: 03/08/23 08:[address] neg, she felt better with the pain med she requested, dilaudid, she has nausea and pain med at home, see PCP for recheck. Counseled pt/family regarding: lab results, diagnosis, need for follow-up, rad results - Departure Departure Disposition: Home Clinical Impression: Abdominal pain Qualifiers: Abdominal location: upper abdomen, unspecified Qualified Code(s): R10.10 - Upper abdominal pain, unspecified Condition: Stable Critical Care Time: No Referrals: TAMELA KHAN [Primary Care Provider] - Follow up/PCP as directed Instructions: Chronic Pancreatitis (DC) Additional Instructions: See your PCP if the pain persists. Antacids can be helpful for this type of abdominal pain.
[2023-03-07] MEDS ORDERED: Zofran 4 MG/2 ML VIAL IV ONE (15:44)
[2023-03-07] MEDS ORDERED: Hydromorphone 1 mg/ml Injection IV ONE (15:44)
[2023-03-07] MEDS ORDERED: Sodium Chloride 0.9% 1000 ML 1,000 ML IV STA (15:45)
[2023-03-07] MEDS ORDERED: Zofran 4 MG/2 ML VIAL ONE (16:02)
[2023-03-07] MEDS ORDERED: Hydromorphone 1 mg/ml Injection ONE (16:02)
[2023-03-07] MEDS ORDERED: Sodium Chloride 0.9% 1000 ML 1,000 ML ONE (16:02)
[2023-03-07 16:12] LABS: Absolute Neutrophil Ct (ANC) 5.92 x10^3/uL (1.4-6.9); BASOPHIL % 0.3 % (0.0-0.4); Basophil (Absolute #) 0.03 x10^3/uL (0-0.4); Eosinophil % 0.7 % (0.00-5.0); Eosinophil (Absolute #) 0.06 x10^3/uL (0-0.5); Hematocrit 37.6 % (35-47); Hemoglobin 12.3 g/dL (12.0-16.0); IMMATURE GRAN # 0.02 x10^3u/L (0.00-0.03); IMMATURE GRAN % 0.2 % (0.00-0.4); Lymphocyte (Absolute #) 2.31 x10^3/uL (1.0-4.6); Lymphocytes % 26.3 % (24.0-44.0); Mean Cell Volume 89.5 fL (78-100); Mean Corpuscular Hemoglobin 29.3 pg (26-32); Mean Corpuscular Hgb Concent. 32.7 g/dL (32-36); Monocyte (Absolute #) 0.45 x10^3/uL (0.0-1.3); Monocytes % 5.1 % (0.0-12.0); Neutrophil % 67.4 % (36.0-66.0); Platelet Count 289 x10^3/uL (150-450); Red Cell Distribution Width 13.1 % (11.5-14.0); White Blood Count 8.8 x10^3/uL (4.0-10.5)
[2023-03-07 16:18] LABS: HCG SERUM TEST NEGATIVE (NEGATIVE)
[2023-03-07 16:22] LABS: ADD URINE CULTURE? YES (NO); Appearance Clear (Clear); Bacteria None Seen /HPF (None Seen); Bilirubin Negative (Negative); Blood Negative (Negative); Epithelial Cells Few /HPF (None Seen); Glucose, Urine Negative (Negative); Hyaline Casts NONE SEEN /LPF (0-2); Ketones Negative (Negative); Leukocyte Esterase Trace (Negative); Nitrite Negative (Negative); Ph 6.5 (4.6-8.0); Protein,Urine Dip 100 (Negative); RBC 0-2 /HPF (0-5); Urobilinogen 0.2 mg/dL (0.2)
[2023-03-07 16:27] LABS: ALBUMIN 4.8 g/dL (3.5-5.0); ALKALINE PHOSPHATASE 105 U/L (38-126); ANION GAP 18.5 MEQ/L (5-15); BLOOD UREA NITROGEN 5 mg/dL (7-17); CHLORIDE 105 mmol/L (98-107); Calcium 9.8 mg/dL (8.4-10.2); Carbon Dioxide 23 mmol/L (22-30); Creatinine 1 0.58 mg/dL (0.52-1.04); EST GLOMERULAR FILTRATION RATE > 60.0 ML/MIN; Glucose 138 mg/dL (74-106); Potassium 3.8 mmol/L (3.5-5.1); SGOT/AST 36 U/L (14-36); SGPT/ALT 33 U/L (0-35); SODIUM 143 mmol/L (137-145); Total Protein 8.8 g/dL (6.3-8.2)
[2023-03-07 18:14] VITALS: BP 146/99; PULSE 84
--- NOTE | 2023-03-07 19:36 | XRAY ---
CLINICAL HISTORY:pancreatitis COMPARISON:None; TECHNIQUES:CT scan of the abdomen and pelvis was performed with IV contrast, 80 ml of Inj. Isovue (370 mg/ 100ml) was administered as intravenous contrast agent. Bowel loops are not opacified by prior administration of oral contrast. Coronal and sagittal reconstructive images were also obtained. Delayed images were obtained. CTDI: 18.5 mGy, DLP: 1004 mGy*cm; FINDINGS: Pancreas appears normal in size. No evidence of peripancreatic fat stranding. Small air-filled outpouching is seen along the medial wall of the duodenum, in the region of distal end of CBD, likely the duodenal diverticulum. There is a demonstration of liver enlargement, measuring 20cm. No focal or diffuse parenchymal abnormality. The portal vein, intrahepatic biliary radicals, and bile ducts are normal. Multiple calcified granulomas are again seen in the spleen. Spleen is normal-sized. GB is removed - cholecystectomy. The adrenal glands are unremarkable. The kidneys are unremarkable. They are normal in size and shape. No evidence of hydronephrosis. Tiny hyperdense foci are seen in both kidneys, likely calculi. (seen in the earlier scan as well). The ascending colon, the transverse colon, and the descending colon visualized small bowel loops are unremarkable. There is no evidence of significant enlargement of the mesenteric or retroperitoneal lymph nodes. The urinary bladder is unremarkable. The rectosigmoid colon is unremarkable. Uterus and both ovaries appears normal. The pelvic vasculature is unremarkable. No evidence of pelvic lymphadenopathy. Surgical jono are seen in right iliac fossa (H/O appendicectomy). The osseous structures in the pelvis, lower rib cage, and lumbar spine show no abnormality. No lytic or sclerotic bone lesions. IMPRESSION: 1-Pancreas appears normal in size. No evidence of peripancreatic fat stranding. (previously seen pancreatitis shows complete resolution). 2-Small air-filled outpouching is seen along the medial wall of the duodenum, likely the duodenal diverticulum. (Not clearly seen in earlier scan due to pancreatitis). 3-Redemonstration of hepatomegaly, fatty infiltration. 4-Redemonstration of splenic granuloma. 5-Redemonstration of tiny bilateral renal calculi. Electronically Signed by: Cande Elliott MD. (03/07/2023 18:28:53 [employer])
== END 2023-03-07 20:16 | disposition home or self-care (01) ==
LOC: ED 14:34
DX: R10.10 Upper abdominal pain, unspecified (principal); R11.2 Nausea with vomiting, unspecified; I10 Essential (primary) hypertension; Z79.899 Other long term (current) drug therapy
CPT/HCPCS: 36000; 36415; 74177; 80053; 81001; 83690; 84703; 85025; 87086; 96374; 96375; 99284; J1170; J2405

== ENCOUNTER 2023-05-10 21:08 | Emergency (ER) | payer OTHER ==
[2023-05-10] MEDS ORDERED: TORAdol 30 mg Injection IV ONE (21:31)
[2023-05-10] MEDS ORDERED: Hydromorphone 1 mg/ml Injection IV ONE (21:31)
[2023-05-10] MEDS ORDERED: Sodium Chloride 0.9% 1000 ML 1,000 ML IV STA (21:31)
[2023-05-10] MEDS ORDERED: Zofran 4 MG/2 ML VIAL IV ONE (21:31)
[2023-05-10] MEDS ORDERED: Sodium Chloride 0.9% 1000 ML 1,000 ML ONE (21:39)
[2023-05-10] MEDS ORDERED: Zofran 4 MG/2 ML VIAL ONE (21:39)
--- NOTE | 2023-05-10 21:41 | ERPHSYRPT ---
- History of Present Illness Time Seen by Provider: 05/10/23 21:10 Historian: patient Exam Limitations: no limitations Patient Subjective Stated Complaint: Pt reports she woke up this morning with right sided flank pain on the right side. She has had hematuria today and has been trying to push fluids. Hx of kidney stones. Triage Nursing Assessment: Pt alert and oriented x3. No respiratory distress. Ambulated to ED cot without difficulty. Skin w/p/d. Abdomen round/nontender. Active bowel sounds in all four quads. C/O right flank pain 07/01. Physician History: Patient here with right flank pain. History of recurrent alcoholic pancreatitis. Patient states that she is 9 months . Does not believe that she is . Patient states she woke up with the pain this morning. No falls no trauma. No fever no chills. She denies any active breast-feeding. States that she had blood in her urine starting this morning as well. Allergies/Adverse Reactions: Penicillins Adverse Reaction (Mild, Verified 05/10/23 21:23) Rash pt states she is not had problems with antibitics related to pcn as an adult Home Medications: Omeprazole 20 mg PO DAILY PRN 11/04/20 [History] Amlodipine Besylate 10 mg PO DAILY 06/23/21 [History] Hx Tetanus, Diphtheria Vaccination/Date Given: Yes Hx Influenza Vaccination/Date Given: Yes Hx Pneumococcal Vaccination/Date Given: No Travel Risk - International Travel Have you traveled outside of the country in past 3 weeks: No - Coronavirus Screening Are you exhibiting any of the following symptoms?: Yes Symptoms: Vomiting/Diarrhea Close contact with a COVID-19 positive Pt in past 14-21 Days: No - Vaccine Status Have you recieved a Covid-19 vaccination: Yes 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: [employer] - Vaccination Dates Date of 2cond Vaccination (if applicable): 05/28/21 - Review of Systems Constitutional: No Fever, No Chills Eyes: No Symptoms Ears, Nose, & Throat: No Symptoms Respiratory: No Cough, No Dyspnea Cardiac: No Chest Pain, No Edema, No Syncope Abdominal/Gastrointestinal: Abdominal Pain, Nausea, No Vomiting, No Diarrhea Genitourinary Symptoms: No Dysuria Musculoskeletal: No Back Pain, No Neck Pain Skin: No Rash Neurological: No Dizziness, No Focal Weakness, No Sensory Changes Psychological: No Symptoms Endocrine: No Symptoms All Other Systems: Reviewed and Negative - Past Medical History Pertinent Past Medical History: Yes Neurological History: No Pertinent History ENT History: No Pertinent History Cardiac History: Hypertension Respiratory History: No Pertinent History Endocrine Medical History: No Pertinent History Musculoskeletal History: No Pertinent History GI Medical History: Pancreatitis History: No Pertinent History Psycho-Social History: No Pertinent History Female Reproductive Disorders: Endometriosis Other Medical History: . - Past Surgical History Past Surgical History: Yes Neuro Surgical History: No Pertinent History Cardiac: No Pertinent History Respiratory: No Pertinent History Gastrointestinal: Appendectomy, Cholecystectomy Genitourinary: No Pertinent History Musculoskeletal: No Pertinent History Female Surgical History: No Pertinent History Other Surgical History: exploratory laparoscopy per Dr Hidalgo 2014- negative, wisdom teeth. - Social History Smoking Status: Former smoker How long have you smoked: 10 yrs Exposure to second hand smoke: No Alcohol Use: Socially Drug Use: none Patient Lives Alone: No Significant Family History: no pertinent family hx - Female History Hx Last Menstrual Period: february 2023 Hx Now: No - Nursing Vital Signs Nursing Vital Signs: Initial Vital Signs Temperature 98.6 F 05/10/23 21:16 Pain Scale Pain Intensity 9 - Physical Exam General Appearance: no apparent distress, alert Eye Exam: PERRL/EOMI, eyes nml inspection Ears, Nose, Throat Exam: normal ENT inspection, pharynx normal, moist mucous membranes Neck Exam: normal inspection, non-tender, supple, full range of motion Respiratory Exam: normal breath sounds, lungs clear, No respiratory distress Cardiovascular Exam: regular rate/rhythm, normal heart sounds Gastrointestinal/Abdomen Exam: soft, tenderness (Abdomen soft no rebound or guarding. Right flank tenderness to palpation. No overlying skin changes.), No mass Back Exam: normal inspection, normal range of motion, No CVA tenderness, No vertebral tenderness Extremity Exam: normal inspection, normal range of motion, pelvis stable Neurologic Exam: alert, oriented x 3, cooperative, normal mood/affect, nml cerebellar function, sensation nml, No motor deficits Skin Exam: normal color, warm, dry - Course Nursing assessment & vital signs reviewed: Yes EKG Interpreted by Me: Sinus Rhythm Ordered Tests: Active Orders 24 hr Category Date Time Status EKG-ER Only STAT Care 05/10/23 21:31 Active IV Insertion STAT Care 05/10/23 21:31 Active ABDOMEN AND PELVIS W CONTRAST [CT] Stat Exams 05/10/23 21:34 Completed AMYLASE Stat Lab 05/10/23 21:30 Completed CBC W DIFF Stat Lab 05/10/23 21:30 Completed CMP Stat Lab 05/10/23 21:30 Completed CULTURE,URINE Stat Lab 05/10/23 21:31 Received HCG QUALITATIVE, URINE Stat Lab 05/10/23 21:31 Completed LIPASE Stat Lab 05/10/23 21:30 Completed UA W/RFX UR CULTURE Stat Lab 05/10/23 21:31 Completed Medication Summary Discontinued Medications Generic Name Dose Route Start Last Admin Trade Name Lazaro PRN Reason Stop Dose Admin Hydromorphone HCl 0.5 mg 05/10/23 21:31 05/10/23 21:58 Hydromorphone 1 Mg/1ml Inj IV 05/10/23 21:32 0.5 mg STAT ONE Administration Hydromorphone HCl Confirm 05/10/23 21:56 Hydromorphone 1 Mg/1ml Inj Administered 05/10/23 21:57 Dose 1 mg .ROUTE .STK-MED ONE Sodium Chloride 1,000 mls @ 999 mls/hr 05/10/23 21:31 05/10/23 23:00 Sodium Chloride 0.9% 1000 Ml IV 05/10/23 22:31 Infused .Q1H1M STA Infusion Sodium Chloride Confirm 05/10/23 21:39 Sodium Chloride 0.9% 1000 Ml Administered 05/10/23 21:40 Dose 1,000 mls @ ud .ROUTE .STK-MED ONE Ketorolac Tromethamine 30 mg 05/10/23 21:31 05/10/23 21:57 Ketorolac Tromethamine 30 Mg/Ml Inj IV 05/10/23 21:32 30 mg STAT ONE Administration Ketorolac Tromethamine Confirm 05/10/23 21:56 Ketorolac Tromethamine 30 Mg/Ml Inj Administered 05/10/23 21:57 Dose 30 mg .ROUTE .STK-MED ONE Ondansetron HCl 4 mg 05/10/23 21:31 05/10/23 21:42 Ondansetron Hcl 4 Mg/2 Ml Vial IV 05/10/23 21:32 4 mg STAT ONE Administration Ondansetron HCl Confirm 05/10/23 21:39 Ondansetron Hcl 4 Mg/2 Ml Vial Administered 05/10/23 21:40 Dose 4 mg .ROUTE .STK-MED ONE Lab/Rad Data: Laboratory Result Diagrams 05/10/23 21:30 05/10/23 21:30 Laboratory Results 05/10/23 05/10/23 05/10/23 Range/Units 21:31 21:31 21:30 WBC (4.0-10.5) x10^3/uL RBC (4.1-5.4) x10^6/uL Hgb (12.0-16.0) g/dL Hct (35-47) % MCV (78-100) fL MCH (26-32) pg MCHC (32-36) g/dL RDW (11.5-14.0) % Plt Count (150-450) x10^3/uL MPV (7.5-11.0) fL Gran % (36.0-66.0) % Immature Gran % (Auto) (0.00-0.4) % Nucleat RBC Rel Count (0.00-0.1) % Eos # (Auto) (0-0.5) x10^3/uL Immature Gran # (Auto) (0.00-0.03) x10^3u/L Absolute Lymphs (auto) (1.0-4.6) x10^3/uL Absolute Monos (auto) (0.0-1.3) x10^3/uL Absolute Nucleated RBC (0.00-0.01) x10^3u/L Lymphocytes % (24.0-44.0) % Monocytes % (0.0-12.0) % Eosinophils % (0.00-5.0) % Basophils % (0.0-0.4) % Absolute Granulocytes (1.4-6.9) x10^3/uL Basophils # (0-0.4) x10^3/uL Sodium 139 (137-145) mmol/L Potassium 3.4 L (3.5-5.1) mmol/L Chloride 104 (98-107) mmol/L Carbon Dioxide 19 L (22-30) mmol/L Anion Gap 18.5 H (5-15) MEQ/L BUN 12 (7-17) mg/dL Creatinine 0.60 (0.52-1.04) mg/dL Estimated GFR > 60.0 ML/MIN Glucose 158 H (74-106) mg/dL Calcium 9.4 (8.4-10.2) mg/dL Total Bilirubin 0.40 (0.2-1.3) mg/dL AST 30 (14-36) U/L ALT 35 (0-35) U/L Alkaline Phosphatase 81 (38-126) U/L Serum Total Protein 8.9 H (6.3-8.2) g/dL Albumin 4.7 (3.5-5.0) g/dL Amylase 90 (30-110) U/L Lipase 139 (23-300) U/L Urine Color Yellow (Yellow) Urine Appearance Turbid A (Clear) Urine pH 6.0 (4.6-8.0) Ur Specific [place] 1.025 (1.005-1.030) Urine Protein 30 (Negative) Urine Glucose (UA) Negative (Negative) mg/dL Urine Ketones Negative (Negative) Urine Blood Large A (Negative) Urine Nitrite Negative (Negative) Urine Bilirubin Negative (Negative) Urine Urobilinogen 1.0 A (0.2) mg/dL Ur Leukocyte Esterase Moderate A (Negative) U Hyaline Cast (Auto) 3-5 A (0-2) /LPF Urine Microscopic RBC 3-5 (0-5) /HPF Urine Microscopic WBC 51-100 A (0-5) /HPF Ur Epithelial Cells Many A (None Seen) /HPF Urine Bacteria Many A (None Seen) /HPF Urine Culture Reflexed YES (NO) Urine HCG, Qual NEGATIVE (NEGATIVE) 05/10/23 Range/Units 21:30 WBC 10.6 H (4.0-10.5) x10^3/uL RBC 4.36 (4.1-5.4) x10^6/uL Hgb 12.6 (12.0-16.0) g/dL Hct 38.7 (35-47) % MCV 88.8 (78-100) fL MCH 28.9 (26-32) pg MCHC 32.6 (32-36) g/dL RDW 13.2 (11.5-14.0) % Plt Count 295 (150-450) x10^3/uL MPV 11.0 (7.5-11.0) fL Gran % 58.9 (36.0-66.0) % Immature Gran % (Auto) 0.3 (0.00-0.4) % Nucleat RBC Rel Count 0.0 (0.00-0.1) % Eos # (Auto) 0.12 (0-0.5) x10^3/uL Immature Gran # (Auto) 0.03 (0.00-0.03) x10^3u/L Absolute Lymphs (auto) 3.47 (1.0-4.6) x10^3/uL Absolute Monos (auto) 0.68 (0.0-1.3) x10^3/uL Absolute Nucleated RBC 0.00 (0.00-0.01) x10^3u/L Lymphocytes % 32.7 (24.0-44.0) % Monocytes % 6.4 (0.0-12.0) % Eosinophils % 1.1 (0.00-5.0) % Basophils % 0.6 (0.0-0.4) % Absolute Granulocytes 6.26 (1.4-6.9) x10^3/uL Basophils # 0.06 (0-0.4) x10^3/uL Sodium (137-145) mmol/L Potassium (3.5-5.1) mmol/L Chloride (98-107) mmol/L Carbon Dioxide (22-30) mmol/L Anion Gap (5-15) MEQ/L BUN (7-17) mg/dL Creatinine (0.52-1.04) mg/dL Estimated GFR ML/MIN Glucose (74-106) mg/dL Calcium (8.4-10.2) mg/dL Total Bilirubin (0.2-1.3) mg/dL AST (14-36) U/L ALT (0-35) U/L Alkaline Phosphatase (38-126) U/L Serum Total Protein (6.3-8.2) g/dL Albumin (3.5-5.0) g/dL Amylase (30-110) U/L Lipase (23-300) U/L Urine Color (Yellow) Urine Appearance (Clear) Urine pH (4.6-8.0) Ur Specific [place] (1.005-1.030) Urine Protein (Negative) Urine Glucose (UA) (Negative) mg/dL Urine Ketones (Negative) Urine Blood (Negative) Urine Nitrite (Negative) Urine Bilirubin (Negative) Urine Urobilinogen (0.2) mg/dL Ur Leukocyte Esterase (Negative) U Hyaline Cast (Auto) (0-2) /LPF Urine Microscopic RBC (0-5) /HPF Urine Microscopic WBC (0-5) /HPF Ur Epithelial Cells (None Seen) /HPF Urine Bacteria (None Seen) /HPF Urine Culture Reflexed (NO) Urine HCG, Qual (NEGATIVE) - Progress Progress: improved Progress Note: 05/10/23 21:40 differential diagnosis includes kidney stone, compression fracture, infection, UTI, triple AAA - basic labs including: CBC, lipase, CMP, UA, UPT - insert IV for fluids, pain meds, nausea control - consider imaging: CT ab/pelvis 05/10/23 23:51 CT scan shows no acute abnormalities. No acute pancreatitis, kidney stone. UA shows most likely UTI. Will send for urine culture. Given flank pain most likely acute pyelonephritis. No signs of sepsis or other severe illness. Plan for discharge home at this point time. Patient states that her will come pick her up. Patient unable to drive secondary to narcotic given in the emergency department. Return here sooner for new or changing symptoms. Counseled pt/family regarding: lab results, diagnosis, need for follow-up, rad results Medical Desision Making - External Record(s) Reviewed Records reviewed as a part of evaluation & management: Discharge Summary - Diagnostic Testing Diagnostic test were ordered, analyzed, and reviewed by me: Yes Radiological Interpretation: Reviewed by me - Risk of complications Minimal Risk: Minimal risk of morbidity - Departure Departure Disposition: Home Clinical Impression: Acute pyelonephritis Condition: Stable Critical Care Time: No Referrals: TAMELA KHAN [Primary Care Provider] - Follow up/PCP as directed Instructions: Flank Pain, Urinary Tract Infection, Adult (DC) Prescriptions: Smz/Tmp Ds Tablet [Bactrim Ds Tablet] 1 udtab PO BID 14 Days #28 tablet
[2023-05-10 21:49] LABS: Absolute Neutrophil Ct (ANC) 6.26 x10^3/uL (1.4-6.9); BASOPHIL % 0.6 % (0.0-0.4); Basophil (Absolute #) 0.06 x10^3/uL (0-0.4); Eosinophil % 1.1 % (0.00-5.0); Eosinophil (Absolute #) 0.12 x10^3/uL (0-0.5); Hematocrit 38.7 % (35-47); Hemoglobin 12.6 g/dL (12.0-16.0); IMMATURE GRAN # 0.03 x10^3u/L (0.00-0.03); IMMATURE GRAN % 0.3 % (0.00-0.4); Lymphocyte (Absolute #) 3.47 x10^3/uL (1.0-4.6); Lymphocytes % 32.7 % (24.0-44.0); Mean Cell Volume 88.8 fL (78-100); Mean Corpuscular Hemoglobin 28.9 pg (26-32); Mean Corpuscular Hgb Concent. 32.6 g/dL (32-36); Monocyte (Absolute #) 0.68 x10^3/uL (0.0-1.3); Monocytes % 6.4 % (0.0-12.0); Neutrophil % 58.9 % (36.0-66.0); Platelet Count 295 x10^3/uL (150-450); Red Blood Count 4.36 x10^6/uL (4.1-5.4); Red Cell Distribution Width 13.2 % (11.5-14.0); White Blood Count 10.6 x10^3/uL (4.0-10.5)
[2023-05-10 21:52] LABS: HCG URINE TEST NEGATIVE (NEGATIVE)
[2023-05-10] MEDS ORDERED: TORAdol 30 mg Injection ONE (21:56)
[2023-05-10] MEDS ORDERED: Hydromorphone 1 mg/ml Injection ONE (21:56)
[2023-05-10 22:03] LABS: ALBUMIN 4.7 g/dL (3.5-5.0); ALKALINE PHOSPHATASE 81 U/L (38-126); AMYLASE 90 U/L (30-110); ANION GAP 18.5 MEQ/L (5-15); BLOOD UREA NITROGEN 12 mg/dL (7-17); CHLORIDE 104 mmol/L (98-107); Calcium 9.4 mg/dL (8.4-10.2); Carbon Dioxide 19 mmol/L (22-30); EST GLOMERULAR FILTRATION RATE > 60.0 ML/MIN; Glucose 158 mg/dL (74-106); LIPASE 139 U/L (23-300); Potassium 3.4 mmol/L (3.5-5.1); SGOT/AST 30 U/L (14-36); SGPT/ALT 35 U/L (0-35); SODIUM 139 mmol/L (137-145); Total Protein 8.9 g/dL (6.3-8.2)
[2023-05-10 22:03] LABS: Appearance Turbid (Clear); Bacteria Many /HPF (None Seen); Bilirubin Negative (Negative); Blood Large (Negative); Epithelial Cells Many /HPF (None Seen); Glucose, Urine Negative (Negative); Ketones Negative (Negative); Leukocyte Esterase Moderate (Negative); Nitrite Negative (Negative); Protein,Urine Dip 30 (Negative); Specific Gravity 1.025 (1.005-1.030); WBC 51-100 /HPF (0-5)
[2023-05-10 22:04] LABS: ADD URINE CULTURE? YES (NO)
[2023-05-10 23:02] VITALS: BP 117/68; PULSE 114
--- NOTE | 2023-05-10 23:36 | XRAY ---
CLINICAL HISTORY:abdominal pain COMPARISON:None; TECHNIQUES:CT scan of the abdomen and pelvis was performed with contrast. Coronal and sagittal reconstructive images were also obtained; FINDINGS: A 4 mm calcified nodule is seen in the left lower lobe, likely a granuloma. L RADS 1. Abdomen: The liver is mildly enlarged in size, measuring 20 cm craniocaudally, and shows fatty infiltration. The portal vein, intrahepatic biliary radicals, and bile ducts are normal. The spleen shows multiple tiny calcific foci, suggestive of calcified granulomas. The pancreas and adrenal glands are unremarkable. The kidneys are unremarkable. They are normal in size and shape. A few bilateral 1-1.5 mm concretions are seen in the upper calyx of the left kidney and the lower calyx of the right kidney. No evidence of hydronephrosis. The gallbladder is surgically removed. The ascending colon, the transverse colon, and the descending colon visualized small bowel loops are unremarkable. A small duodenal diverticula noted. There is no evidence of significant enlargement of the mesenteric or retroperitoneal lymph nodes. Few surgical clips were seen in the right iliac fossa region, post appendicectomy status. Pelvis: The urinary bladder is unremarkable. The rectosigmoid colon is unremarkable. The uterus and adnexa appear unremarkable. No evidence of pelvic lymphadenopathy. A 1.9 X 1.4 cm soft tissue nodule/granuloma is seen posteriorly in the left gluteal region. No definite bony abnormalities could be depicted. IMPRESSION: No significant acute abnormality was detected in the abdomen or in the pelvis. Redemonstration of hepatomegaly with fatty infiltration, old calcified granulomas in the spleen, and bilateral renal concretion. Electronically Signed by: Cande Elliott MD. (05/10/2023 22:31:24 RAGMAN)
[2023-05-11 00:08] VITALS: O2SAT 96
== END 2023-05-11 00:12 | disposition home or self-care (01) ==
LOC: ED 21:08
DX: N10 Acute pyelonephritis (principal); R10.9 Unspecified abdominal pain; R31.9 Hematuria, unspecified; I10 Essential (primary) hypertension; Z79.899 Other long term (current) drug therapy
CPT/HCPCS: 36000; 36415; 74177; 80053; 81001; 81025; 82150; 83690; 85025; 87086; 93005; 96360; 96374; 96375; 99284; J1170; J1885; J2405

== ENCOUNTER 2023-10-19 12:56 | Emergency (ER) | payer OTHER ==
[2023-10-19] MEDS ORDERED: MORPHINE SULFATE 4 MG INJ IV ONE (14:31)
[2023-10-19] MEDS ORDERED: Zofran 4 MG/2 ML VIAL IV ONE (14:31)
[2023-10-19 14:40] VITALS: O2SAT 98
[2023-10-19] MEDS ORDERED: Sodium Chloride 0.9% 1000 ML 1,000 ML IV SCH (14:45)
[2023-10-19 14:50] LABS: Appearance Cloudy (Clear); Bilirubin Negative (Negative); Blood Negative (Negative); Glucose, Urine Negative (Negative); Ketones Negative (Negative); Leukocyte Esterase Small (Negative); Nitrite Negative (Negative); Protein,Urine Dip Negative (Negative); Urobilinogen 0.2 mg/dL (0.2)
[2023-10-19 14:51] LABS: HCG URINE TEST NEGATIVE (NEGATIVE)
[2023-10-19] MEDS ORDERED: MORPHINE SULFATE 4 MG INJ ONE (14:55)
[2023-10-19] MEDS ORDERED: Zofran 4 MG/2 ML VIAL ONE (14:55)
[2023-10-19] MEDS ORDERED: Sodium Chloride 0.9% 1000 ML 1,000 ML ONE (14:55)
[2023-10-19 14:57] LABS: Bacteria Many /HPF (None Seen); Epithelial Cells Moderate /HPF (None Seen); Hyaline Casts NONE SEEN /LPF (0-2); RBC 0-2 /HPF (0-5); WBC 21-50 /HPF (0-5)
[2023-10-19 15:05] LABS: Absolute Neutrophil Ct (ANC) 6.68 x10^3/uL (1.4-6.9); BASOPHIL % 0.3 % (0.0-0.4); Basophil (Absolute #) 0.03 x10^3/uL (0-0.4); Eosinophil % 0.4 % (0.00-5.0); Eosinophil (Absolute #) 0.04 x10^3/uL (0-0.5); Hematocrit 40.6 % (35-47); Hemoglobin 13.4 g/dL (12.0-16.0); IMMATURE GRAN # 0.03 x10^3u/L (0.00-0.03); IMMATURE GRAN % 0.3 % (0.00-0.4); Lymphocyte (Absolute #) 1.71 x10^3/uL (1.0-4.6); Mean Cell Volume 92.3 fL (78-100); Mean Corpuscular Hemoglobin 30.5 pg (26-32); Mean Platelet Volume 10.5 fL (7.5-11.0); Monocyte (Absolute #) 0.53 x10^3/uL (0.0-1.3); Monocytes % 5.9 % (0.0-12.0); Neutrophil % 74.1 % (36.0-66.0); Platelet Count 244 x10^3/uL (150-450); Red Cell Distribution Width 12.8 % (11.5-14.0)
[2023-10-19 15:09] LABS: ADD URINE CULTURE? YES (NO)
[2023-10-19 15:19] LABS: ALBUMIN 5.1 g/dL (3.5-5.0); ANION GAP 18.9 MEQ/L (5-15); BILIRUBIN,TOTAL 0.7 mg/dL (0.2-1.3); Calcium 10.3 mg/dL (8.4-10.2); Creatinine 1 0.52 mg/dL (0.52-1.04); EST GLOMERULAR FILTRATION RATE 124.2 ML/MIN; Total Protein 9.3 g/dL (6.3-8.2)
--- NOTE | 2023-10-19 15:34 | ERPHSYRPT ---
- History of Present Illness Time Seen by Provider: 10/19/23 13:12 Historian: patient Exam Limitations: no limitations Patient Subjective Stated Complaint: Pt states "I think my pancreatitis is flairing up again. I am vomiting and I have belly pain." Triage Nursing Assessment: Pt presented alert and oriented X 3, skin pwd. Pt ambulates with an upright steady gait, able to speak in clear full sentences. Pt resting comfortably on the bed. Physician History: 33-year-old female history of pancreatitis presents to our ED with epigastric pain. Patient believes she may be experiencing a flareup of her pancreatitis. Pain worse with palpation to the epigastrium. No chest pain or shortness of breath. No nausea vomiting or diaphoresis. Patient does have some periumbilical pain as well. However there is tenderness to palpation of the epigastrium. Overlying soft tissue intact. No signs of trauma. No diarrhea. No rash no fever. Patient states she is otherwise healthy. She voices no other complaints or concerns at this time. Portions of this note were created with voice recognition technology. There may be grammatical, spelling, punctuation or sound alike errors Timing/Duration: today Activities at Onset: none Quality: aching Abdominal Pain Onset Location: epigastric, periumbilical Pain Radiation: no radiation Severity of Pain-Max: moderate Severity of Pain-Current: mild Modifying Factors: Improves With: nothing Associated Symptoms: denies symptoms Previous symptoms: same symptoms as today Allergies/Adverse Reactions: Penicillins Adverse Reaction (Mild, Verified 05/10/23 21:23) Rash pt states she is not had problems with antibitics related to pcn as an adult Home Medications: Omeprazole 20 mg PO DAILY PRN 11/04/20 [History] Amlodipine Besylate 10 mg PO DAILY 06/23/21 [History] Buspirone HCl 30 mg PO DAILY 10/19/23 [History] Hydrocodone/Acetaminophen [Hydrocodone-Acetamin 5-325 mg] 1 tab PO DAILY 10/19/23 [History] Hx Tetanus, Diphtheria Vaccination/Date Given: Yes Hx Influenza Vaccination/Date Given: Yes Hx Pneumococcal Vaccination/Date Given: No Immunizations Up to Date: Yes Travel Risk - International Travel Have you traveled outside of the country in past 3 weeks: No - Coronavirus Screening Are you exhibiting any of the following symptoms?: No Close contact with a COVID-19 positive Pt in past 14-21 Days: No - Vaccine Status Have you recieved a Covid-19 vaccination: Yes Transmission Builder: [employer] - Vaccination Dates Date of 2cond Vaccination (if applicable): 05/28/21 - Review of Systems Constitutional: No Symptoms, No Fever, No Chills Eyes: No Symptoms Ears, Nose, & Throat: No Symptoms Respiratory: No Symptoms, No Cough, No Dyspnea Cardiac: No Symptoms, No Chest Pain, No Edema, No Syncope Abdominal/Gastrointestinal: No Symptoms, No Abdominal Pain, No Nausea, No Vom iting, No Diarrhea Genitourinary Symptoms: No Symptoms, No Dysuria Musculoskeletal: No Symptoms, No Back Pain, No Neck Pain Skin: No Symptoms, No Rash Neurological: No Symptoms, No Dizziness, No Focal Weakness, No Sensory Changes Psychological: No Symptoms Endocrine: No Symptoms Hematologic/Lymphatic: No Symptoms Immunological/Allergic: No Symptoms All Other Systems: Reviewed and Negative - Past Medical History Pertinent Past Medical History: Yes Neurological History: No Pertinent History ENT History: No Pertinent History Cardiac History: Hypertension Respiratory History: No Pertinent History Endocrine Medical History: No Pertinent History Musculoskeletal History: No Pertinent History GI Medical History: Pancreatitis History: No Pertinent History Psycho-Social History: Anxiety Female Reproductive Disorders: Endometriosis Other Medical History: . - Past Surgical History Past Surgical History: Yes Neuro Surgical History: No Pertinent History Cardiac: No Pertinent History Respiratory: No Pertinent History Gastrointestinal: Appendectomy, Cholecystectomy Genitourinary: No Pertinent History Musculoskeletal: No Pertinent History Female Surgical History: No Pertinent History Other Surgical History: exploratory laparoscopy per Dr Hidalgo 2014- negative, wisdom teeth. - Social History Smoking Status: Former smoker How long have you smoked: 10 yrs Exposure to second hand smoke: No Alcohol Use: Socially Drug Use: none Patient Lives Alone: No Significant Family History: no pertinent family hx - Female History Hx Last Menstrual Period: 09/15/2023 Hx Now: (unknown) - Nursing Vital Signs Nursing Vital Signs: Initial Vital Signs Temperature 97.3 F 10/19/23 13:08 Pulse Rate 136 H 10/19/23 13:08 Respiratory Rate 20 10/19/23 13:08 Blood Pressure 170/103 10/19/23 13:08 O2 Sat by Pulse Oximetry 97 10/19/23 13:08 Pain Scale Pain Intensity 2 - Physical Exam General Appearance: no apparent distress, alert Eye Exam: PERRL/EOMI, eyes nml inspection Ears, Nose, Throat Exam: normal ENT inspection, pharynx normal, moist mucous membranes Neck Exam: normal inspection, non-tender, supple, full range of motion Respiratory Exam: normal breath sounds, lungs clear, No respiratory distress Cardiovascular Exam: regular rate/rhythm, normal heart sounds Gastrointestinal/Abdomen Exam: soft, tenderness (Epigastric tenderness to palpa tion.), No mass Back Exam: normal inspection, normal range of motion, No CVA tenderness, No vertebral tenderness Extremity Exam: normal inspection, normal range of motion, pelvis stable Neurologic Exam: alert, oriented x 3, cooperative, normal mood/affect, nml cerebellar function, sensation nml, No motor deficits Skin Exam: normal color, warm, dry Lymphatic Exam: adenopathy SpO2 Interpretation: normal SpO2: 98 O2 Delivery: Room Air - Course Nursing assessment & vital signs reviewed: Yes Ordered Tests: Active Orders 24 hr Category Date Time Status IV Insertion STAT Care 10/19/23 14:31 Completed ABDOMEN AND PELVIS W CONTRAST [CT] Stat Exams 10/19/23 14:31 Completed CBC W DIFF Stat Lab 10/19/23 15:00 Completed CMP Stat Lab 10/19/23 15:00 Completed CULTURE,URINE Stat Lab 10/19/23 14:40 Received HCG QUALITATIVE, URINE Stat Lab 10/19/23 14:51 Completed LIPASE Stat Lab 10/19/23 15:00 Completed TROPONIN Q4H Lab 10/19/23 15:00 Completed UA W/RFX UR CULTURE Stat Lab 10/19/23 14:40 Completed Medication Summary Discontinued Medications Generic Name Dose Route Start Last Admin Trade Name Lazaro PRN Reason Stop Dose Admin Sodium Chloride 1,000 mls @ 100 mls/hr 10/19/23 14:45 10/19/23 14:59 Sodium Chloride 0.9% 1000 Ml IV 11/18/23 14:44 100 mls/hr .Q10H ANTONIO Administration Sodium Chloride Confirm 10/19/23 14:55 Sodium Chloride 0.9% 1000 Ml Administered 10/19/23 14:56 Dose 1,000 mls @ ud .ROUTE .STK-MED ONE Morphine Sulfate 4 mg 10/19/23 14:31 10/19/23 15:01 Morphine Sulfate 4 Mg/Ml Injection IV 10/19/23 14:32 4 mg STAT ONE Administration Morphine Sulfate Confirm 10/19/23 14:55 Morphine Sulfate 4 Mg/Ml Injection Administered 10/19/23 14:56 Dose 4 mg .ROUTE .STK-MED ONE Nitrofurantoin Macrocrystals 100 mg 10/19/23 16:59 10/19/23 17:01 Nitrofurantoin Macro 100 Mg Capsule PO 10/19/23 17:00 100 mg STAT ONE Administration Nitrofurantoin Macrocrystals Confirm 10/19/23 17:00 Nitrofurantoin Macro 100 Mg Capsule Administered 10/19/23 17:01 Dose 100 mg .ROUTE .STK-MED ONE Ondansetron HCl 4 mg 10/19/23 14:31 10/19/23 15:00 Ondansetron Hcl 4 Mg/2 Ml Vial IV 10/19/23 14:32 4 mg STAT ONE Administration Ondansetron HCl Confirm 10/19/23 14:55 Ondansetron Hcl 4 Mg/2 Ml Vial Administered 10/19/23 14:56 Dose 4 mg .ROUTE .STK-MED ONE Lab/Rad Data: Laboratory Result Diagrams 10/19/23 15:00 10/19/23 15:00 Laboratory Results 10/19/23 10/19/23 10/19/23 Range/Units 15:00 15:00 15:00 WBC 9.0 (4.0-10.5) x10^3/uL RBC 4.40 (4.1-5.4) x10^6/uL Hgb 13.4 (12.0-16.0) g/dL Hct 40.6 (35-47) % MCV 92.3 (78-100) fL MCH 30.5 (26-32) pg MCHC 33.0 (32-36) g/dL RDW 12.8 (11.5-14.0) % Plt Count 244 (150-450) x10^3/uL MPV 10.5 (7.5-11.0) fL Gran % 74.1 H (36.0-66.0) % Immature Gran % (Auto) 0.3 (0.00-0.4) % Nucleat RBC Rel Count 0.0 (0.00-0.1) % Eos # (Auto) 0.04 (0-0.5) x10^3/uL Immature Gran # (Auto) 0.03 (0.00-0.03) x10^3u/L Absolute Lymphs (auto) 1.71 (1.0-4.6) x10^3/uL Absolute Monos (auto) 0.53 (0.0-1.3) x10^3/uL Absolute Nucleated RBC 0.00 (0.00-0.01) x10^3u/L Lymphocytes % 19.0 L (24.0-44.0) % Monocytes % 5.9 (0.0-12.0) % Eosinophils % 0.4 (0.00-5.0) % Basophils % 0.3 (0.0-0.4) % Absolute Granulocytes 6.68 (1.4-6.9) x10^3/uL Basophils # 0.03 (0-0.4) x10^3/uL Sodium 138 (137-145) mmol/L Potassium 4.0 (3.5-5.1) mmol/L Chloride 103 (98-107) mmol/L Carbon Dioxide 20 L (22-30) mmol/L Anion Gap 18.9 H (5-15) MEQ/L BUN 8 (7-17) mg/dL Creatinine 0.52 (0.52-1.04) mg/dL Estimated GFR 124.2 ML/MIN Glucose 128 H (74-106) mg/dL Calcium 10.3 H (8.4-10.2) mg/dL Total Bilirubin 0.70 (0.2-1.3) mg/dL AST 33 (14-36) U/L ALT 37 H (0-35) U/L Alkaline Phosphatase 94 (38-126) U/L Troponin I < 0.012 (0.000-0.034) ng/mL Serum Total Protein 9.3 H (6.3-8.2) g/dL Albumin 5.1 H (3.5-5.0) g/dL Lipase 99 (23-300) U/L Urine Color (Yellow) Urine Appearance (Clear) Urine pH (4.6-8.0) Ur Specific [place] (1.005-1.030) Urine Protein (Negative) Urine Glucose (UA) (Negative) mg/dL Urine Ketones (Negative) Urine Blood (Negative) Urine Nitrite (Negative) Urine Bilirubin (Negative) Urine Urobilinogen (0.2) mg/dL Ur Leukocyte Esterase (Negative) U Hyaline Cast (Auto) (0-2) /LPF Urine Microscopic RBC (0-5) /HPF Urine Microscopic WBC (0-5) /HPF Ur Epithelial Cells (None Seen) /HPF Urine Bacteria (None Seen) /HPF Urine Culture Reflexed (NO) Urine HCG, Qual (NEGATIVE) 10/19/23 10/19/23 Range/Units 14:51 14:40 WBC (4.0-10.5) x10^3/uL RBC (4.1-5.4) x10^6/uL Hgb (12.0-16.0) g/dL Hct (35-47) % MCV (78-100) fL MCH (26-32) pg MCHC (32-36) g/dL RDW (11.5-14.0) % Plt Count (150-450) x10^3/uL MPV (7.5-11.0) fL Gran % (36.0-66.0) % Immature Gran % (Auto) (0.00-0.4) % Nucleat RBC Rel Count (0.00-0.1) % Eos # (Auto) (0-0.5) x10^3/uL Immature Gran # (Auto) (0.00-0.03) x10^3u/L Absolute Lymphs (auto) (1.0-4.6) x10^3/uL Absolute Monos (auto) (0.0-1.3) x10^3/uL Absolute Nucleated RBC (0.00-0.01) x10^3u/L Lymphocytes % (24.0-44.0) % Monocytes % (0.0-12.0) % Eosinophils % (0.00-5.0) % Basophils % (0.0-0.4) % Absolute Granulocytes (1.4-6.9) x10^3/uL Basophils # (0-0.4) x10^3/uL Sodium (137-145) mmol/L Potassium (3.5-5.1) mmol/L Chloride (98-107) mmol/L Carbon Dioxide (22-30) mmol/L Anion Gap (5-15) MEQ/L BUN (7-17) mg/dL Creatinine (0.52-1.04) mg/dL Estimated GFR ML/MIN Glucose (74-106) mg/dL Calcium (8.4-10.2) mg/dL Total Bilirubin (0.2-1.3) mg/dL AST (14-36) U/L ALT (0-35) U/L Alkaline Phosphatase (38-126) U/L Troponin I (0.000-0.034) ng/mL Serum Total Protein (6.3-8.2) g/dL Albumin (3.5-5.0) g/dL Lipase (23-300) U/L Urine Color Yellow (Yellow) Urine Appearance Cloudy A (Clear) Urine pH 6.0 (4.6-8.0) Ur Specific [place] 1.010 (1.005-1.030) Urine Protein Negative (Negative) Urine Glucose (UA) Negative (Negative) mg/dL Urine Ketones Negative (Negative) Urine Blood Negative (Negative) Urine Nitrite Negative (Negative) Urine Bilirubin Negative (Negative) Urine Urobilinogen 0.2 (0.2) mg/dL Ur Leukocyte Esterase Small A (Negative) U Hyaline Cast (Auto) NONE SEEN (0-2) /LPF Urine Microscopic RBC 0-2 (0-5) /HPF Urine Microscopic WBC 21-50 A (0-5) /HPF Ur Epithelial Cells Moderate A (None Seen) /HPF Urine Bacteria Many A (None Seen) /HPF Urine Culture Reflexed YES (NO) Urine HCG, Qual NEGATIVE (NEGATIVE) - Progress Progress: improved Progress Note: 33-year-old female presents to our ED for evaluation of epigastric pain. CBC CMP essentially nonremarkable. Lipase within normal limits. Troponin negative. Urinalysis significant for urinary tract infection. Patient received a dose of Macrobid in our ED. Morphine administered for pain control. Patient also received Zofran for nausea and normal saline for rehydration. CT scan shows ovarian cyst. No acute findings otherwise. Patient discharged home. Patient agrees to follow-up with her primary care doctor within 48 hours for reevaluation. Portions of this note were created with voice recognition technology. There may be grammatical, spelling, punctuation or sound alike errors Complexity of problems addressed is moderate acute complicated Complexity of data reviewed and analyzed is moderate. Test ordered test kayla scott. Results analyzed and correlated clinically with history and physical exam. Risk of complication and or risk of morbidity/mortality of patient management is moderate. Patient received Macrobid prescription for urinary tract infection Vital stable. Time spent to discharge patient is approximately 15 minutes. Plan of care established for shared decision making. No social determinants of health present to impede follow-up. Portions of this note were created with voice recognition technology. There may be grammatical, spelling, punctuation or sound alike errors 10/20/23 07:02 10/20/23 07:03 Counseled pt/family regarding: lab results, diagnosis, rad results - Departure Departure Disposition: Home Clinical Impression: UTI (urinary tract infection), Abdominal pain, Ovarian cyst, Lung granuloma Condition: Stable Critical Care Time: No Referrals: TAMELA KHAN [Primary Care Provider] - Follow up/PCP as directed Instructions: Urinary Tract Infection, Adult (DC) Additional Instructions: Discharge/Care Plan YURI MENJIVAR was seen on 10/19/23 in the Emergency Room. The patient was counseled regarding Diagnosis,Lab results, Imaging studies, need for follow up and when to return to the Emergency Room. Prescriptions given: Discharge Note I have spoken with the patient and/or caregivers. I have explained the patient's condition, diagnosis and treatment plan based on the information available to me at this time. I have answered the patient's and/or caregiver's questions and addressed any concerns. The patient and/or caregivers have as good understanding of the patient's diagnosis, condition and treatment plan as can be expected at this point. The vital signs have been stable. The patient's condition is stable and appropriate for discharge from the emergency department. The patient will pursue further outpatient evaluation with the primary care physician or other designated or consulting physician as outlined in the d ischarge instructions. The patient and/or caregivers are agreeable to this plan of care and follow-up instructions have been explained in detail. The patient and/or caregivers have received these instruction. The patient/and or caregivers are aware that any significant change in condition or worsening of symptoms should prompt an immediate return to this or the closest emergency department or call 911. Prescriptions: Nitrofurantoin Macro 100 mg [Macrobid 100MG Capsule] 100 mg PO BID 7 Days #14 cap
--- NOTE | 2023-10-19 16:40 | XRAY ---
CLINICAL HISTORY:pain COMPARISON:08/16/2023. TECHNIQUE:A CT scan of the abdomen and pelvis was performed with contrast. 80 cc Isovue 370. Delayed images were obtained. Coronal and sagittal reconstructive images were also obtained. FINDINGS: Lung bases demonstrate stable tiny left lower lobe calcified granuloma. No infiltrate or effusion. Heart not enlarged. Stable small descending duodenal diverticulum. The stomach and rest of the bowel are unremarkable. Again appendectomy and cholecystectomy. Stable incidental tiny splenic calcified granulomas. Liver and biliary tree: Normal-sized liver. No liver lesion is seen. Adrenal glands: Unremarkable. Pancreas: Unremarkable. Kidneys and ureters: Unremarkable. No renal stone cysts or hydronephrosis were detected. Retroperitoneum: Unremarkable. Lymph nodes: No evidence of lymphadenopathy. Skeletal system: No suspicious bony lesion detected. Degenerative changes are seen in the spine. Bladder: No definite focal lesion detected. Left ovarian two cysts measuring 3.5 x 2.8 cm and 3.8 x 2.9 cm. The uterus and right adnexa are unremarkable. IMPRESSION: Two left ovarian cysts. A new finding since the last study. No significant acute abnormality was detected in the abdomen or in the pelvis. Stable incidental duodenal diverticulum and old granulomatous disease. Electronically Signed by: Caned Elliott MD. (10/19/2023 16:35:49 EST)
[2023-10-19] MEDS ORDERED: Macrobid 100MG Capsule PO ONE (16:59)
[2023-10-19] MEDS ORDERED: Macrobid 100MG Capsule ONE (17:00)
[2023-10-19 17:05] VITALS: BP 150/88; PULSE 88; RESP 20; TEMP 97.2
== END 2023-10-19 17:12 | disposition home or self-care (01) ==
LOC: ED 12:56
DX: N39.0 Urinary tract infection, site not specified (principal); R10.13 Epigastric pain; N83.202 Unspecified ovarian cyst, left side; J84.10 Pulmonary fibrosis, unspecified; R10.33 Periumbilical pain; I10 Essential (primary) hypertension; Z79.891 Long term (current) use of opiate analgesic; Z79.899 Other long term (current) drug therapy
CPT/HCPCS: 36000; 36415; 74177; 80053; 81001; 81025; 83690; 84484; 85025; 87077; 87086; 87186; 96374; 96375; 99284; J2270; J2405; A9270-GY

== ENCOUNTER 2024-05-14 21:04 | Emergency (ER) | payer OTHER ==
--- NOTE | 2024-05-14 21:22 | ERPHSYRPT ---
- History of Present Illness Time Seen by Provider: 05/14/24 21:22 Historian: patient Exam Limitations: no limitations Physician History: This is a 33-year-old white female patient Dr. Tan who has chronic, recurrent pancreatitis issues but has not had an episode in quite some time and presents to the emergency department with vomiting every hour since 3 AM this morning despite the use of Phenergan and Zofran medication. Patient states that the pain is generalized and cramping which is different than her typical pancreatitis pain flareups. A CT scan of the abdomen pelvis on 10/11/2023 showed 2 left ovarian cyst and an unremarkable pancreas. There were no si gnificant acute abnormalities present. Patient has had a history of an appendectomy and cholecystectomy. She has a history of hypertension, anxiety, gastroesophageal reflux disease. She denies chest pain and she denies shortness of breath. Timing/Duration: today, worse Quality: cramping Abdominal Pain Onset Location: generalized abdomen Severity of Pain-Max: moderate Severity of Pain-Current: moderate Modifying Factors: Improves With: vomiting Associated Symptoms: loss of appetite, nausea, vomiting, weakness Previous symptoms: same symptoms as today, no recent treatment Allergies/Adverse Reactions: Penicillins Adverse Reaction (Mild, Verified 05/14/24 21:55) Rash pt states she is not had problems with antibitics related to pcn as an adult Home Medications: Omeprazole 20 mg PO DAILY PRN 11/04/20 [History] Amlodipine Besylate 10 mg PO DAILY 06/23/21 [History] Buspirone HCl 30 mg PO DAILY 10/19/23 [History] Hydrocodone/Acetaminophen [Hydrocodone-Acetamin 5-325 mg] 1 tab PO DAILY 10/19/23 [History] Hx Tetanus, Diphtheria Vaccination/Date Given: Yes Hx Influenza Vaccination/Date Given: Yes Hx Pneumococcal Vaccination/Date Given: No Travel Risk - International Travel Have you traveled outside of the country in past 3 weeks: No - Emerging Infectious Disease Are you exhibiting symptoms associated with any current EIDs: Yes Symptoms: Abdominal Pain, Vomitting - Review of Systems Constitutional: No Symptoms Eyes: No Symptoms Ears, Nose, & Throat: No Symptoms Respiratory: No Symptoms Cardiac: No Symptoms Abdominal/Gastrointestinal: Abdominal Pain, Nausea, Vomiting, Appetite Changes Genitourinary Symptoms: No Symptoms Musculoskeletal: No Symptoms Skin: No Symptoms Neurological: No Symptoms Psychological: No Symptoms Endocrine: No Symptoms Hematologic/Lymphatic: No Symptoms Immunological/Allergic: No Symptoms All Other Systems: Reviewed and Negative - Past Medical History Pertinent Past Medical History: Yes Neurological History: No Pertinent History ENT History: No Pertinent History Cardiac History: Hypertension Respiratory History: No Pertinent History Endocrine Medical History: No Pertinent History Musculoskeletal History: No Pertinent History GI Medical History: Pancreatitis History: No Pertinent History Psycho-Social History: Anxiety Female Reproductive Disorders: Endometriosis Other Medical History: . - Past Surgical History Past Surgical History: Yes Neuro Surgical History: No Pertinent History Cardiac: No Pertinent History Respiratory: No Pertinent History Gastrointestinal: Appendectomy, Cholecystectomy Genitourinary: No Pertinent History Musculoskeletal: No Pertinent History Female Surgical History: No Pertinent History Other Surgical History: exploratory laparoscopy per Dr Hidalgo 2014- negative, wisdom teeth. Significant Family History: no pertinent family hx - Female History Hx Last Menstrual Period: 2 WKS AGO - Social History Smoking Status: Former smoker How long have you smoked: 10 yrs Exposure to second hand smoke: No Alcohol Use: Socially Drug Use: none Patient Lives Alone: No - Nursing Vital Signs Nursing Vital Signs: Initial Vital Signs Temperature 98.8 F 05/14/24 21:46 Pulse Rate 93 H 05/14/24 21:46 Respiratory Rate 16 05/14/24 21:46 Blood Pressure 137/107 05/14/24 21:46 O2 Sat by Pulse Oximetry 96 05/14/24 21:46 Pain Scale Pain Intensity 7 - Physical Exam General Appearance: mild distress, alert, anxiety Eye Exam: PERRL/EOMI, eyes nml inspection Ears, Nose, Throat Exam: normal ENT inspection, moist mucous membranes Neck Exam: normal inspection, non-tender, supple, full range of motion Respiratory Exam: normal breath sounds, lungs clear, airway intact, No chest tenderness, No respiratory distress Cardiovascular Exam: regular rate/rhythm, normal heart sounds, normal peripheral pulses Gastrointestinal/Abdomen Exam: soft, normal bowel sounds, tenderness (Gen eralized), guarding (To palpation. Generalized pain) Pelvic Exam: not done Rectal Exam: not done Back Exam: normal inspection, normal range of motion, No CVA tenderness, No vertebral tenderness Extremity Exam: normal inspection, normal range of motion, pelvis stable Neurologic Exam: alert, oriented x 3, cooperative, independent driver II-XII nml as tested, normal mood/affect, nml cerebellar function, nml station & gait, sensation nml Skin Exam: normal color, warm, dry Lymphatic Exam: No adenopathy SpO2 Interpretation: normal O2 Delivery: Room Air - Course Nursing assessment & vital signs reviewed: Yes Ordered Tests: Active Orders 24 hr Category Date Time Status IV Insertion STAT Care 05/14/24 22:06 Active ABDOMEN AND PELVIS W/0 CONTRAS [CT] Stat Exams 05/14/24 22:06 Completed AMYLASE Stat Lab 05/14/24 22:50 Completed CBC W DIFF Stat Lab 05/14/24 22:32 Completed CMP Stat Lab 05/14/24 22:50 Completed HCG QUALITATIVE, SERUM Stat Lab 05/14/24 22:50 Completed LIPASE Stat Lab 05/14/24 22:50 Completed UA W/RFX UR CULTURE Stat Lab 05/14/24 22:21 Completed Medication Summary Discontinued Medications Generic Name Dose Route Start Last Admin Trade Name Freq PRN Reason Stop Dose Admin Hydromorphone HCl 1 mg 05/14/24 22:06 05/14/24 22:19 Hydromorphone 1 Mg/1ml Inj IV 05/14/24 22:07 1 mg STAT ONE Administration Hydromorphone HCl Confirm 05/14/24 22:16 Hydromorphone 1 Mg/1ml Inj Administered 05/14/24 22:17 Dose 1 mg .ROUTE .STK-MED ONE Sodium Chloride 1,000 mls @ 999 mls/hr 05/14/24 22:06 05/14/24 22:21 Sodium Chloride 0.9% 1000 Ml IV 05/14/24 23:06 999 mls/hr .Q1H1M STA Administration Sodium Chloride Confirm 05/14/24 22:16 Sodium Chloride 0.9% 1000 Ml Administered 05/14/24 22:17 Dose 1,000 mls @ ud .ROUTE .STK-MED ONE Ondansetron HCl 4 mg 05/14/24 22:06 05/14/24 22:18 Ondansetron Hcl 4 Mg/2 Ml Vial IV 05/14/24 22:07 4 mg STAT ONE Administration Ondansetron HCl Confirm 05/14/24 22:15 Ondansetron Hcl 4 Mg/2 Ml Vial Administered 05/14/24 22:16 Dose 4 mg .ROUTE .STK-MED ONE Potassium Chloride 20 meq 05/14/24 23:21 05/14/24 23:24 Potassium Chloride Tab 10 Meq Tab PO 05/14/24 23:22 20 meq STAT ONE Administration Potassium Chloride Confirm 05/14/24 23:24 Potassium Chloride Tab 10 Meq Tab Administered 05/14/24 23:25 Dose 20 meq .ROUTE .STK-MED ONE Lab/Rad Data: Laboratory Result Diagrams 05/14/24 22:32 05/14/24 22:50 Laboratory Results 05/14/24 05/14/24 05/14/24 Range/Units 22:50 22:50 22:32 WBC 10.2 H (3.98-10.04) x10^3/uL RBC 4.36 (3.93-5.22) x10^6/uL Hgb 12.5 (11.2-15.7) g/dL Hct 39.9 (34.1-44.9) % MCV 91.5 (79.4-94.8) fL MCH 28.7 (25.6-32.2) pg MCHC 31.3 L (32.2-35.5) g/dL RDW 13.8 (11.7-14.4) % Plt Count 187 (182-369) x10^3/uL MPV 12.8 H (9.4-12.3) fL Gran % 81.8 H (34.0-71.1) % Immature Gran % (Auto) 0.2 (0.001-0.429) % Nucleat RBC Rel Count 0.0 (0.00-0.2) % Eos # (Auto) 0.01 L (0.04-0.36) x10^3/uL Immature Gran # (Auto) 0.02 (0.001-0.031) x10^3u/L Absolute Lymphs (auto) 1.39 (1.18-3.74) x10^3/uL Absolute Monos (auto) 0.42 (0.24-0.86) x10^3/uL Absolute Nucleated RBC 0.00 (0.00-0.012) x10^3u/L Lymphocytes % 13.7 L (19.3-51.7) % Monocytes % 4.1 L (4.7-12.5) % Eosinophils % 0.1 L (0.7-5.8) % Basophils % 0.1 (0.1-1.2) % Absolute Granulocytes 8.31 H (1.56-6.13) x10^3/uL Basophils # 0.01 (0.01-0.08) x10^3/uL Sodium 138 (135-145) mmol/L Potassium 3.3 L (3.5-5.1) mmol/L Chloride 107 (98-107) mmol/L Carbon Dioxide 21 L (22-30) mmol/L Anion Gap 12.3 (5-15) MEQ/L BUN 8 (7-17) mg/dL Creatinine 0.42 L (0.52-1.04) mg/dL Estimated GFR 130.7 ML/MIN Glucose 128 H (74-106) mg/dL Calcium 8.2 L (8.4-10.2) mg/dL Total Bilirubin 0.60 (0.2-1.3) mg/dL AST 20 (14-36) U/L ALT 26 (0-35) U/L Alkaline Phosphatase 71 (38-126) U/L Serum Total Protein 6.5 (6.3-8.2) g/dL Albumin 3.7 (3.5-5.0) g/dL Amylase 68 (30-110) U/L Lipase 20 L (23-300) U/L Serum HCG, Qual NEGATIVE (NEGATIVE) Urine Color (Yellow) Urine Appearance (Clear) Urine pH (4.6-8.0) Ur Specific [place] (1.005-1.030) Urine Protein (Negative) Urine Glucose (UA) (Negative) mg/dL Urine Ketones (Negative) Urine Blood (Negative) Urine Nitrite (Negative) Urine Bilirubin (Negative) Urine Urobilinogen (0.2) mg/dL Ur Leukocyte Esterase (Negative) U Hyaline Cast (Auto) (0-2) /LPF Urine Microscopic RBC (0-5) /HPF Urine Microscopic WBC (0-5) /HPF Ur Epithelial Cells (None Seen) /HPF Urine Bacteria (None Seen) /HPF Urine Culture Reflexed (NO) 05/14/24 Range/Units 22:21 WBC (3.98-10.04) x10^3/uL RBC (3.93-5.22) x10^6/uL Hgb (11.2-15.7) g/dL Hct (34.1-44.9) % MCV (79.4-94.8) fL MCH (25.6-32.2) pg MCHC (32.2-35.5) g/dL RDW (11.7-14.4) % Plt Count (182-369) x10^3/uL MPV (9.4-12.3) fL Gran % (34.0-71.1) % Immature Gran % (Auto) (0.001-0.429) % Nucleat RBC Rel Count (0.00-0.2) % Eos # (Auto) (0.04-0.36) x10^3/uL Immature Gran # (Auto) (0.001-0.031) x10^3u/L Absolute Lymphs (auto) (1.18-3.74) x10^3/uL Absolute Monos (auto) (0.24-0.86) x10^3/uL Absolute Nucleated RBC (0.00-0.012) x10^3u/L Lymphocytes % (19.3-51.7) % Monocytes % (4.7-12.5) % Eosinophils % (0.7-5.8) % Basophils % (0.1-1.2) % Absolute Granulocytes (1.56-6.13) x10^3/uL Basophils # (0.01-0.08) x10^3/uL Sodium (135-145) mmol/L Potassium (3.5-5.1) mmol/L Chloride (98-107) mmol/L Carbon Dioxide (22-30) mmol/L Anion Gap (5-15) MEQ/L BUN (7-17) mg/dL Creatinine (0.52-1.04) mg/dL Estimated GFR ML/MIN Glucose (74-106) mg/dL Calcium (8.4-10.2) mg/dL Total Bilirubin (0.2-1.3) mg/dL AST (14-36) U/L ALT (0-35) U/L Alkaline Phosphatase (38-126) U/L Serum Total Protein (6.3-8.2) g/dL Albumin (3.5-5.0) g/dL Amylase (30-110) U/L Lipase (23-300) U/L Serum HCG, Qual (NEGATIVE) Urine Color Yellow (Yellow) Urine Appearance Clear (Clear) Urine pH 6.0 (4.6-8.0) Ur Specific [place] 1.015 (1.005-1.030) Urine Protein Negative (Negative) Urine Glucose (UA) Negative (Negative) mg/dL Urine Ketones Negative (Negative) Urine Blood Negative (Negative) Urine Nitrite Negative (Negative) Urine Bilirubin Negative (Negative) Urine Urobilinogen 0.2 (0.2) mg/dL Ur Leukocyte Esterase Trace A (Negative) U Hyaline Cast (Auto) NONE SEEN (0-2) /LPF Urine Microscopic RBC 0-2 (0-5) /HPF Urine Microscopic WBC 3-5 (0-5) /HPF Ur Epithelial Cells Few (None Seen) /HPF Urine Bacteria Rare A (None Seen) /HPF Urine Culture Reflexed NO (NO) - Progress Progress: improved Progress Note: 05/14/24 22:10 My medical decision making and the assignment of moderate complexity to this patient's medical issue today is based on review of the patient's past medical history, review the patient's medication list, review of patient drug allergy list, history present illness and physical findings on examination. The workup in this patient includes placement of intravenous line, infusion of normal saline solution, infusion of Zofran, infusion of Dilaudid, CBC, CMP, amylase, lipase, urinalysis, CT scan of the abdomen pelvis without contrast. Differential diagnosis includes but is not limited to pancreatitis, bowel obstruction, diverticulitis, colitis, pyelonephritis, ureterolithiasis 05/14/24 23:22 I interpreted the patient's laboratory data results. Based on the patient's laboratory results, the patient does not have an acute, emergent medical issue. Her potassium is mildly low and we will replace it with oral potassium 20 mill equivalents here in the emergency department. 05/14/24 23:47 Patient reexamined. Patient states she is feeling much better after our intervention. 05/15/24 00:[address] scan of the abdomen pelvis was interpreted by the radiologist and I reviewed the impression. The impression states no acute abdominopelvic abnormality. There is resolution of the ovarian cysts that were present in the comparison film. There are bilateral renal calculi which are nonobstructive. Counseled pt/family regarding: lab results, diagnosis, need for follow-up, rad results Medical Desision Making - Diagnostic Testing Diagnostic test were ordered, analyzed, and reviewed by me: Yes Radiological Interpretation: Reviewed by me, Teleradiologist Report - Risk of complications Low Risk: Low risk of morbidity from additional dx testing or treatment - Departure Departure Disposition: Home Clinical Impression: Abdominal pain, Vomiting Condition: Stable Critical Care Time: No Referrals: TAMELA TAN [Primary Care Provider] - Follow up/PCP as directed Additional Instructions: Drink plenty of clear liquids before advancing diet. Avoid fatty greasy spicy foods. Call your primary care provider today, 05/15/2024 to make arrangements for follow-up appointment to be seen in the next 3 to 5 days. Continue your other medications as prescribed.
[2024-05-14 21:55] VITALS: PULSE 93; RESP 16; TEMP 98.8
[2024-05-14] MEDS ORDERED: Zofran 4 MG/2 ML VIAL ONE (22:15)
[2024-05-14] MEDS ORDERED: Sodium Chloride 0.9% 1000 ML 1,000 ML ONE (22:16)
[2024-05-14] MEDS ORDERED: Hydromorphone 1 mg/ml Injection ONE (22:16)
[2024-05-14] MEDS: Zofran 4 MG/2 ML VIAL IV ONE (22:18)
[2024-05-14] MEDS: Hydromorphone 1 mg/ml Injection IV ONE (22:19)
[2024-05-14] MEDS: Sodium Chloride 0.9% 1000 ML 1,000 ML IV STA (22:21)
[2024-05-14 22:34] LABS: Absolute Neutrophil Ct (ANC) 8.31 x10^3/uL (1.56-6.13); BASOPHIL % 0.1 % (0.1-1.2); Basophil (Absolute #) 0.01 x10^3/uL (0.01-0.08); Eosinophil % 0.1 % (0.7-5.8); Eosinophil (Absolute #) 0.01 x10^3/uL (0.04-0.36); Hematocrit 39.9 % (34.1-44.9); Hemoglobin 12.5 g/dL (11.2-15.7); IMMATURE GRAN # 0.02 x10^3u/L (0.001-0.031); IMMATURE GRAN % 0.2 % (0.001-0.429); Lymphocyte (Absolute #) 1.39 x10^3/uL (1.18-3.74); Lymphocytes % 13.7 % (19.3-51.7); Mean Cell Volume 91.5 fL (79.4-94.8); Mean Corpuscular Hemoglobin 28.7 pg (25.6-32.2); Mean Corpuscular Hgb Concent. 31.3 g/dL (32.2-35.5); Mean Platelet Volume 12.8 fL (9.4-12.3); Monocyte (Absolute #) 0.42 x10^3/uL (0.24-0.86); Monocytes % 4.1 % (4.7-12.5); Neutrophil % 81.8 % (34.0-71.1); Platelet Count 187 x10^3/uL (182-369); Red Blood Count 4.36 x10^6/uL (3.93-5.22); Red Cell Distribution Width 13.8 % (11.7-14.4); White Blood Count 10.2 x10^3/uL (3.98-10.04)
[2024-05-14 22:42] LABS: Appearance Clear (Clear); Bacteria Rare /HPF (None Seen); Bilirubin Negative (Negative); Blood Negative (Negative); Epithelial Cells Few /HPF (None Seen); Glucose, Urine Negative (Negative); Hyaline Casts NONE SEEN /LPF (0-2); Ketones Negative (Negative); Leukocyte Esterase Trace (Negative); Nitrite Negative (Negative); Protein,Urine Dip Negative (Negative); RBC 0-2 /HPF (0-5); Specific Gravity 1.015 (1.005-1.030); Urobilinogen 0.2 mg/dL (0.2)
[2024-05-14 22:53] LABS: ADD URINE CULTURE? NO (NO)
[2024-05-14 23:06] LABS: ALBUMIN 3.7 g/dL (3.5-5.0); ANION GAP 12.3 MEQ/L (5-15); BILIRUBIN,TOTAL 0.6 mg/dL (0.2-1.3); Calcium 8.2 mg/dL (8.4-10.2); Creatinine 1 0.42 mg/dL (0.52-1.04); EST GLOMERULAR FILTRATION RATE 130.7 ML/MIN; Potassium 3.3 mmol/L (3.5-5.1); Total Protein 6.5 g/dL (6.3-8.2)
[2024-05-14 23:15] LABS: HCG SERUM TEST NEGATIVE (NEGATIVE)
[2024-05-14] MEDS ORDERED: Klor Con ONE (23:24)
[2024-05-14] MEDS: Klor Con PO ONE (23:24)
--- NOTE | 2024-05-15 00:12 | XRAY ---
CLINICAL HISTORY: ABD pain; vomiting COMPARISON: 10/19/2023 TECHNIQUE: Multiple sections of the abdomen and pelvis were acquired without intravenous contrast administration. Sagittal and coronal reformatted images were obtained. FINDINGS: Please note, that lack of contrast limits the evaluation of organs, vascular structures and lymph nodes. A 5 mm calcified granuloma is noted at left lung lower lobe, unchanged as compared to prior exam. Otherwise, lung bases are clear. Normal-sized liver showing homogenous attenuation. No focal or diffuse abnormality is noted. No intrahepatic duct dilatation is seen. Gallbladder is surgically absent evident by surgical clips in the gallbladder fossa. Mildly prominent common bile duct measuring 8 mm, within normal limits in a patient with postcholecystectomy status. Unenhanced pancreas, adrenal glands are normal. Mildly enlarged spleen measuring 13.2 cm showing multiple calcified granulomata. Both kidneys are normal in size, location and axis. A 2 mm nonobstructing calculus is seen at interpolar region of left kidney. Tiny foci of calcifications are also seen at the lower pole of right kidney. Visualized ureters are normal. Urinary bladder is suboptimally distended. No intraluminal calculus is noted. Uterus and both adnexa are within normal limits. Previously noted ovarian cyst are not visualized on current study. Stomach and distal esophagus appeared unremarkable. Stable duodenal diverticulum is noted. No acute bowel obstruction or ileus. Bowel loops appear grossly normal. S/p appendectomy. No evidence of enlarged mediastinal lymphadenopathy. No free fluid or free intraperitoneal air is seen. Mild degenerative changes are seen in the visualized lumbar spine. IMPRESSION: 1. No acute abdominopelvic abnormality. 2. Tiny nonobstructing bilateral renal calculi, interval new finding on right as compared to prior exam. 3. Left ovarian cysts are not visualized in current study. 4. The rest of the findings are stable as compared to prior CT examination. Electronically Signed by: Cande Elliott MD. (05/15/2024 00:08:14 EDT)
[2024-05-15 00:29] VITALS: BP 120/78; O2SAT 97
== END 2024-05-15 00:30 | disposition home or self-care (01) ==
LOC: ED 21:04
DX: R11.2 Nausea with vomiting, unspecified (principal); R10.84 Generalized abdominal pain; I10 Essential (primary) hypertension; Z79.899 Other long term (current) drug therapy
CPT/HCPCS: 36000; 36415; 74176; 80053; 81001; 82150; 83690; 84703; 85025; 96360; 96374; 96375; 99284; J1170; J2405; A9270-GY

== ENCOUNTER 2024-11-03 19:25 | Emergency (ER) | payer OTHER ==
--- NOTE | 2024-11-03 19:31 | ERPHSYRPT ---
- History of Present Illness Time Seen by Provider: 11/03/24 19:31 Historian: patient, family Exam Limitations: no limitations Physician History: This is a 34-year-old white female patient who arrives by private vehicle accompanied by her and child with a complaint of vomiting and worsening abdominal pain. Patient has a history of chronic recurrent pancreatitis and she has abdominal pain chronically. It is generalized in location. Today she began vomiting and her abdominal pain was worse. Patient has a history of appendectomy and cholecystectomy in the past. Her last CT scan of the abdomen pelvis on 05/14/2024, showed no acute pancreatitis findings. Additionally, patient has had flulike symptoms as well as her family. Patient denies flank pain. Patient denies dysuria. Patient has history of hypertension, anxiety and gastroesophageal reflux disease. Timing/Duration: today Quality: aching Abdominal Pain Onset Location: generalized abdomen Pain Radiation: no radiation Severity of Pain-Max: moderate Severity of Pain-Current: moderate Modifying Factors: Improves With: vomiting Associated Symptoms: loss of appetite, nausea, vomiting, No chest pain, No fever/chills, No shortness of breath Previous symptoms: same symptoms as today, no recent treatment Allergies/Adverse Reactions: Penicillins Adverse Reaction (Mild, Verified 11/03/24 19:56) Rash pt states she is not had problems with antibitics related to pcn as an adult Home Medications: Omeprazole 20 mg PO DAILY PRN 11/04/20 [History] Amlodipine Besylate 10 mg PO DAILY 06/23/21 [History] Buspirone HCl 30 mg PO DAILY 10/19/23 [History] Hydrocodone/Acetaminophen [Hydrocodone-Acetamin 5-325 mg] 1 tab PO DAILY 10/19/23 [History] Hx Tetanus, Diphtheria Vaccination/Date Given: Yes Hx Influenza Vaccination/Date Given: Yes Hx Pneumococcal Vaccination/Date Given: No Travel Risk - International Travel Have you traveled outside of the country in past 3 weeks: No - Emerging Infectious Disease Are you exhibiting symptoms associated with any current EIDs: Yes Symptoms: Abdominal Pain, Vomitting - Review of Systems Constitutional: No Symptoms Eyes: No Symptoms Ears, Nose, & Throat: No Symptoms Respiratory: No Symptoms Cardiac: No Symptoms Abdominal/Gastrointestinal: Abdominal Pain, Nausea, Vomiting, Appetite Changes, No Diarrhea, No Constipation Genitourinary Symptoms: No Symptoms Musculoskeletal: No Symptoms Skin: No Symptoms Neurological: Dizziness Psychological: No Symptoms Endocrine: No Symptoms Hematologic/Lymphatic: No Symptoms Immunological/Allergic: No Symptoms All Other Systems: Reviewed and Negative - Past Medical History Pertinent Past Medical History: Yes Neurological History: No Pertinent History ENT History: No Pertinent History Cardiac History: Hypertension Respiratory History: No Pertinent History Endocrine Medical History: No Pertinent History Musculoskeletal History: No Pertinent History GI Medical History: Pancreatitis History: No Pertinent History Psycho-Social History: Anxiety Female Reproductive Disorders: Endometriosis Other Medical History: . - Past Surgical History Past Surgical History: Yes Neuro Surgical History: No Pertinent History Cardiac: No Pertinent History Respiratory: No Pertinent History Gastrointestinal: Appendectomy, Cholecystectomy Genitourinary: No Pertinent History Musculoskeletal: No Pertinent History Female Surgical History: No Pertinent History Other Surgical History: exploratory laparoscopy per Dr Hidalgo 2014- negative, wisdom teeth. Significant Family History: no pertinent family hx - Female History Hx Last Menstrual Period: 2 WKS AGO - Social History Smoking Status: Former smoker How long have you smoked: 10 yrs Exposure to second hand smoke: No Alcohol Use: Socially Drug Use: none Patient Lives Alone: No - Nursing Vital Signs Nursing Vital Signs: Initial Vital Signs Blood Pressure 146/95 11/03/24 20:00 Pain Scale Pain Intensity 10 - Physical Exam General Appearance: mild distress, alert, anxiety Eye Exam: PERRL/EOMI, eyes nml inspection Ears, Nose, Throat Exam: normal ENT inspection, moist mucous membranes Neck Exam: normal inspection, non-tender, supple, full range of motion Respiratory Exam: normal breath sounds, lungs clear, airway intact, No chest tenderness, No respiratory distress Cardiovascular Exam: regular rate/rhythm, normal heart sounds, normal peripheral pulses Gastrointestinal/Abdomen Exam: soft, normal bowel sounds, tenderness (Mild diffuse), guarding (Mild to palpation), No rebound Pelvic Exam: not done Rectal Exam: not done Back Exam: normal inspection, normal range of motion, No CVA tenderness, No vertebral tenderness Extremity Exam: normal inspection, normal range of motion, pelvis stable Neurologic Exam: alert, oriented x 3, cooperative, blow molding 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 tender II-XII nml as tested, nml cerebellar function, nml station & gait, sensation nml Skin Exam: normal color, warm, dry Lymphatic Exam: No adenopathy SpO2 Interpretation: normal O2 Delivery: Room Air - Course Nursing assessment & vital signs reviewed: Yes Ordered Tests: Active Orders 24 hr Category Date Time Status IV Insertion STAT Care 11/03/24 20:03 Active Pulse Oximetry (ED) STAT Care 11/03/24 20:03 Active ABDOMEN AND PELVIS W/0 CONTRAS [CT] Stat Exams 11/03/24 20:04 Taken AMYLASE Stat Lab 11/03/24 20:42 Completed BMP Stat Lab 11/03/24 23:16 Completed CBC W DIFF Stat Lab 11/03/24 20:42 Completed CMP Stat Lab 11/03/24 20:42 Completed CULTURE,URINE Stat Lab 11/03/24 21:54 Received LIPASE Stat Lab 11/03/24 20:42 Completed MONO SCREEN Stat Lab 11/03/24 20:42 Completed UA W/RFX UR CULTURE Stat Lab 11/03/24 21:54 Completed Medication Summary Discontinued Medications Generic Name Dose Route Start Last Admin Trade Name Freq PRN Reason Stop Dose Admin Droperidol 0.625 mg 11/03/24 22:31 11/03/24 22:38 Droperidol 5 Mg/2 Ml Vial IV 11/03/24 22:32 0.625 mg STAT ONE Administration Droperidol Confirm 11/03/24 22:36 Droperidol 5 Mg/2 Ml Vial Administered 11/03/24 22:37 Dose 5 mg .ROUTE .STK-MED ONE Hydromorphone HCl 1 mg 11/03/24 20:04 11/03/24 20:41 Hydromorphone 1 Mg/1ml Inj IV 11/03/24 20:05 1 mg STAT ONE Administration Hydromorphone HCl Confirm 11/03/24 20:38 Hydromorphone 1 Mg/1ml Inj Administered 11/03/24 20:39 Dose 1 mg .ROUTE .STK-MED ONE Sodium Chloride 1,000 mls @ 999 mls/hr 11/03/24 20:03 11/03/24 20:40 Sodium Chloride 0.9% 1000 Ml IV 11/03/24 21:03 999 mls/hr .Q1H1M STA Administration Sodium Chloride Confirm 11/03/24 20:38 Sodium Chloride 0.9% 1000 Ml Administered 11/03/24 20:39 Dose 1,000 mls @ ud .ROUTE .STK-MED ONE Sodium Chloride 1,000 mls @ 999 mls/hr 11/03/24 21:25 Sodium Chloride 0.9% 1000 Ml IV 11/03/24 22:25 .Q1H1M STA Ondansetron HCl 4 mg 11/03/24 20:03 11/03/24 20:41 Ondansetron Hcl 4 Mg/2 Ml Vial IV 11/03/24 20:04 4 mg STAT STA Administration Ondansetron HCl Confirm 11/03/24 20:38 Ondansetron Hcl 4 Mg/2 Ml Vial Administered 11/03/24 20:39 Dose 4 mg .ROUTE .K-MED ONE Lab/Rad Data: Laboratory Result Diagrams 11/03/24 20:42 11/03/24 23:16 Laboratory Results 11/03/24 11/03/24 11/03/24 Range/Units 23:16 21:54 20:42 WBC (3.98-10.04) x10^3/uL RBC (3.93-5.22) x10^6/uL Hgb (11.2-15.7) g/dL Hct (34.1-44.9) % MCV (79.4-94.8) fL MCH (25.6-32.2) pg MCHC (32.2-35.5) g/dL RDW (11.7-14.4) % Plt Count (182-369) x10^3/uL MPV (9.4-12.3) fL Gran % (34.0-71.1) % Immature Gran % (Auto) (0.001-0.429) % Nucleat RBC Rel Count (0.00-0.2) % Eos # (Auto) (0.04-0.36) x10^3/uL Immature Gran # (Auto) (0.001-0.031) x10^3u/L Absolute Lymphs (auto) (1.18-3.74) x10^3/uL Absolute Monos (auto) (0.24-0.86) x10^3/uL Absolute Nucleated RBC (0.00-0.012) x10^3u/L Lymphocytes % (19.3-51.7) % Monocytes % (4.7-12.5) % Eosinophils % (0.7-5.8) % Basophils % (0.1-1.2) % Absolute Granulocytes (1.56-6.13) x10^3/uL Basophils # (0.01-0.08) x10^3/uL Sodium 137 (135-145) mmol/L Potassium 3.5 (3.5-5.1) mmol/L Chloride 108 H (98-107) mmol/L Carbon Dioxide 18 L (22-30) mmol/L Anion Gap 14.5 (5-15) MEQ/L BUN 18 H (7-17) mg/dL Creatinine 0.71 (0.52-1.04) mg/dL Estimated GFR 112.9 ML/MIN Glucose 138 H (74-106) mg/dL Calcium 8.6 (8.4-10.2) mg/dL Total Bilirubin (0.2-1.3) mg/dL AST (14-36) U/L ALT (0-35) U/L Alkaline Phosphatase (38-126) U/L Serum Total Protein (6.3-8.2) g/dL Albumin (3.5-5.0) g/dL Amylase (30-110) U/L Lipase (23-300) U/L Urine Color Yellow (Yellow) Urine Appearance Cloudy A (Clear) Urine pH 6.0 (4.6-8.0) Ur Specific [place] >=1.030 A (1.005-1.030) Urine Protein 30 (Negative) Urine Glucose (UA) Negative (Negative) mg/dL Urine Ketones 40 A (Negative) Urine Blood NHT (Negative) Urine Nitrite Negative (Negative) Urine Bilirubin Negative (Negative) Urine Urobilinogen 1.0 A (0.2) mg/dL Ur Leukocyte Esterase Trace A (Negative) U Hyaline Cast (Auto) 3-5 A (0-2) /LPF Urine Microscopic RBC 3-5 (0-5) /HPF Urine Microscopic WBC 3-5 (0-5) /HPF Ur Epithelial Cells Many A (None Seen) /HPF Urine Bacteria Rare A (None Seen) /HPF Urine Culture Reflexed YES (NO) Monoscreen POSITIVE A (NEGATIVE) Influenza Type A Ag (NEGATIVE) Influenza Type B Ag (NEGATIVE) RSV (PCR) (NEGATIVE) SARS-CoV-2 (PCR) (NEGATIVE) Group A Strep Antibody (NEGATIVE) Slides for Path Review 11/03/24 11/03/24 11/03/24 Range/Units 20:42 20:42 20:42 WBC 9.5 (3.98-10.04) x10^3/uL RBC 4.62 (3.93-5.22) x10^6/uL Hgb 13.4 (11.2-15.7) g/dL Hct 39.4 (34.1-44.9) % MCV 85.3 (79.4-94.8) fL MCH 29.0 (25.6-32.2) pg MCHC 34.0 (32.2-35.5) g/dL RDW 12.9 (11.7-14.4) % Plt Count 246 (182-369) x10^3/uL MPV 10.3 (9.4-12.3) fL Gran % 90.6 H (34.0-71.1) % Immature Gran % (Auto) 0.3 (0.001-0.429) % Nucleat RBC Rel Count 0.0 (0.00-0.2) % Eos # (Auto) 0.03 L (0.04-0.36) x10^3/uL Immature Gran # (Auto) 0.03 (0.001-0.031) x10^3u/L Absolute Lymphs (auto) 0.45 L (1.18-3.74) x10^3/uL Absolute Monos (auto) 0.37 (0.24-0.86) x10^3/uL Absolute Nucleated RBC 0.00 (0.00-0.012) x10^3u/L Lymphocytes % 4.7 L (19.3-51.7) % Monocytes % 3.9 L (4.7-12.5) % Eosinophils % 0.3 L (0.7-5.8) % Basophils % 0.2 (0.1-1.2) % Absolute Granulocytes 8.64 H (1.56-6.13) x10^3/uL Basophils # 0.02 (0.01-0.08) x10^3/uL Sodium 138 (135-145) mmol/L Potassium 3.9 (3.5-5.1) mmol/L Chloride 111 H (98-107) mmol/L Carbon Dioxide 13 L* (22-30) mmol/L Anion Gap 19.0 H (5-15) MEQ/L BUN 20 H (7-17) mg/dL Creatinine 0.85 (0.52-1.04) mg/dL Estimated GFR 91.0 ML/MIN Glucose 144 H (74-106) mg/dL Calcium 9.9 (8.4-10.2) mg/dL Total Bilirubin 0.90 (0.2-1.3) mg/dL AST 62 H (14-36) U/L ALT 41 H (0-35) U/L Alkaline Phosphatase 108 (38-126) U/L Serum Total Protein 8.6 H (6.3-8.2) g/dL Albumin 5.1 H (3.5-5.0) g/dL Amylase 54 (30-110) U/L Lipase 66 (23-300) U/L Urine Color (Yellow) Urine Appearance (Clear) Urine pH (4.6-8.0) Ur Specific [place] (1.005-1.030) Urine Protein (Negative) Urine Glucose (UA) (Negative) mg/dL Urine Ketones (Negative) Urine Blood (Negative) Urine Nitrite (Negative) Urine Bilirubin (Negative) Urine Urobilinogen (0.2) mg/dL Ur Leukocyte Esterase (Negative) U Hyaline Cast (Auto) (0-2) /LPF Urine Microscopic RBC (0-5) /HPF Urine Microscopic WBC (0-5) /HPF Ur Epithelial Cells (None Seen) /HPF Urine Bacteria (None Seen) /HPF Urine Culture Reflexed (NO) Monoscreen (NEGATIVE) Influenza Type A Ag (NEGATIVE) Influenza Type B Ag (NEGATIVE) RSV (PCR) (NEGATIVE) SARS-CoV-2 (PCR) (NEGATIVE) Group A Strep Antibody (NEGATIVE) Slides for Path Review YES 11/03/24 11/03/24 Range/Units 20:20 20:20 WBC (3.98-10.04) x10^3/uL RBC (3.93-5.22) x10^6/uL Hgb (11.2-15.7) g/dL Hct (34.1-44.9) % MCV (79.4-94.8) fL MCH (25.6-32.2) pg MCHC (32.2-35.5) g/dL RDW (11.7-14.4) % Plt Count (182-369) x10^3/uL MPV (9.4-12.3) fL Gran % (34.0-71.1) % Immature Gran % (Auto) (0.001-0.429) % Nucleat RBC Rel Count (0.00-0.2) % Eos # (Auto) (0.04-0.36) x10^3/uL Immature Gran # (Auto) (0.001-0.031) x10^3u/L Absolute Lymphs (auto) (1.18-3.74) x10^3/uL Absolute Monos (auto) (0.24-0.86) x10^3/uL Absolute Nucleated RBC (0.00-0.012) x10^3u/L Lymphocytes % (19.3-51.7) % Monocytes % (4.7-12.5) % Eosinophils % (0.7-5.8) % Basophils % (0.1-1.2) % Absolute Granulocytes (1.56-6.13) x10^3/uL Basophils # (0.01-0.08) x10^3/uL Sodium (135-145) mmol/L Potassium (3.5-5.1) mmol/L Chloride (98-107) mmol/L Carbon Dioxide (22-30) mmol/L Anion Gap (5-15) MEQ/L BUN (7-17) mg/dL Creatinine (0.52-1.04) mg/dL Estimated GFR ML/MIN Glucose (74-106) mg/dL Calcium (8.4-10.2) mg/dL Total Bilirubin (0.2-1.3) mg/dL AST (14-36) U/L ALT (0-35) U/L Alkaline Phosphatase (38-126) U/L Serum Total Protein (6.3-8.2) g/dL Albumin (3.5-5.0) g/dL Amylase (30-110) U/L Lipase (23-300) U/L Urine Color (Yellow) Urine Appearance (Clear) Urine pH (4.6-8.0) Ur Specific [place] (1.005-1.030) Urine Protein (Negative) Urine Glucose (UA) (Negative) mg/dL Urine Ketones (Negative) Urine Blood (Negative) Urine Nitrite (Negative) Urine Bilirubin (Negative) Urine Urobilinogen (0.2) mg/dL Ur Leukocyte Esterase (Negative) U Hyaline Cast (Auto) (0-2) /LPF Urine Microscopic RBC (0-5) /HPF Urine Microscopic WBC (0-5) /HPF Ur Epithelial Cells (None Seen) /HPF Urine Bacteria (None Seen) /HPF Urine Culture Reflexed (NO) Monoscreen (NEGATIVE) Influenza Type A Ag NEGATIVE (NEGATIVE) Influenza Type B Ag NEGATIVE (NEGATIVE) RSV (PCR) NEGATIVE (NEGATIVE) SARS-CoV-2 (PCR) NEGATIVE (NEGATIVE) Group A Strep Antibody NOT DETECTED (NEGATIVE) Slides for Path Review - Progress Progress: improved, pain not gone completely, re-examined Progress Note: 11/03/24 20:08 My medical decision making and the assignment of moderate complexity to this patient's medical issue today is based on review of the patient's past medical history, review the patient's medication list, reviewed patient drug allergy list, history present illness and physical findings on examination. The workup in this patient includes placement of a intravenous line, infusion of normal saline solution, infusion of Zofran intravenously, infusion of Dilaudid intravenously, amylase, lipase, CBC, CMP, urinalysis, CT scan of the abdomen pelvis without contrast, viral swabs, monotest, group A strep test. Differential diagnosis includes but is not limited to viral illness, urinary tract infection, dehydration, recurrent, acute pancreatitis 11/03/24 22:10 I interpreted the patient's laboratory data results. The patient has a CO2 that is 13 and anion gap is 19. Patient has been significantly vomiting and I think that accounts for these abnormal findings on her CMP. Will provide her with a second liter of normal saline crystalloid and recheck a BMP her amylase and lipase are within normal limits. She has slightly elevated transaminase levels as she has in the past. Patient tested positive for mononucleosis CT scan of the abdomen and pelvis without contrast was interpreted by the radiologist and I reviewed the impression. The impression states new bilateral renal punctate calculi. Mild fecal stasis with rectal impaction. Remaining abdominal and pelvic CT scan without contrast is negative. 11/03/24 23:41 I interpreted the patient's repeat BMP level. Patient's anion gap level is now normal. Her CO2 has improved to 18 from 13. Her electrolytes are stable Counseled pt/family regarding: lab results, diagnosis, need for follow-up, rad results Medical Desision Making - Independent Historian Additional History obtained from: Spouse, Family - Diagnostic Testing Diagnostic test were ordered, analyzed, and reviewed by me: Yes Radiological Interpretation: Reviewed by me, Teleradiologist Report - Risk of complications Low Risk: Low risk of morbidity from additional dx testing or treatment - Departure Departure Disposition: Home Clinical Impression: Mononucleosis, Vomiting, Abdominal pain, Dehydration Condition: Stable Critical Care Time: No Referrals: DOCTOR,NO FAMILY [Primary Care Provider] - Follow up/PCP as directed Additional Instructions: Drink plenty of clear liquids before advancing your diet. Avoid ingestion of fatty greasy spicy foods, use of tobacco and use of alcohol. Call your primary care provider on 11/06/2024, to make arrangements for follow-up appointment for further evaluation and management.
[2024-11-03] MEDS ORDERED: Sodium Chloride 0.9% 1000 ML 1,000 ML ONE (20:38)
[2024-11-03] MEDS ORDERED: Hydromorphone 1 mg/ml Injection ONE (20:38)
[2024-11-03] MEDS ORDERED: Zofran 4 MG/2 ML VIAL ONE (20:38)
[2024-11-03] MEDS: Sodium Chloride 0.9% 1000 ML 1,000 ML IV STA (20:40)
[2024-11-03] MEDS: Hydromorphone 1 mg/ml Injection IV ONE (20:41)
[2024-11-03] MEDS: Zofran 4 MG/2 ML VIAL IV STA (20:41)
[2024-11-03 20:44] LABS: Absolute Neutrophil Ct (ANC) 8.64 x10^3/uL (1.56-6.13); BASOPHIL % 0.2 % (0.1-1.2); Basophil (Absolute #) 0.02 x10^3/uL (0.01-0.08); Eosinophil % 0.3 % (0.7-5.8); Eosinophil (Absolute #) 0.03 x10^3/uL (0.04-0.36); Hematocrit 39.4 % (34.1-44.9); Hemoglobin 13.4 g/dL (11.2-15.7); IMMATURE GRAN # 0.03 x10^3u/L (0.001-0.031); IMMATURE GRAN % 0.3 % (0.001-0.429); Lymphocyte (Absolute #) 0.45 x10^3/uL (1.18-3.74); Lymphocytes % 4.7 % (19.3-51.7); Mean Cell Volume 85.3 fL (79.4-94.8); Mean Platelet Volume 10.3 fL (9.4-12.3); Monocyte (Absolute #) 0.37 x10^3/uL (0.24-0.86); Monocytes % 3.9 % (4.7-12.5); Neutrophil % 90.6 % (34.0-71.1); Platelet Count 246 x10^3/uL (182-369); Red Blood Count 4.62 x10^6/uL (3.93-5.22); Red Cell Distribution Width 12.9 % (11.7-14.4); White Blood Count 9.5 x10^3/uL (3.98-10.04)
[2024-11-03 20:56] LABS: ALBUMIN 5.1 g/dL (3.5-5.0); BILIRUBIN,TOTAL 0.9 mg/dL (0.2-1.3); Calcium 9.9 mg/dL (8.4-10.2); Creatinine 1 0.85 mg/dL (0.52-1.04); Potassium 3.9 mmol/L (3.5-5.1); Total Protein 8.6 g/dL (6.3-8.2)
[2024-11-03 21:08] LABS: INFLUENZA A NEGATIVE (NEGATIVE); INFLUENZA B NEGATIVE (NEGATIVE); RESPIRATORY SYNCTIAL VIRUS NEGATIVE (NEGATIVE); SARS-CoV-2 Xpert Express NEGATIVE (NEGATIVE)
[2024-11-03 21:11] LABS: AMYLASE 54 U/L (30-110); LIPASE 66 U/L (23-300)
[2024-11-03 22:05] LABS: Appearance Cloudy (Clear); Bacteria Rare /HPF (None Seen); Bilirubin Negative (Negative); Blood NHT (Negative); Epithelial Cells Many /HPF (None Seen); Glucose, Urine Negative (Negative); Ketones 40 (Negative); Leukocyte Esterase Trace (Negative); Nitrite Negative (Negative); Protein,Urine Dip 30 (Negative); Specific Gravity >=1.030 (1.005-1.030)
[2024-11-03 22:13] LABS: Slide Review 1 YES
[2024-11-03 23:33] VITALS: BP 133/89
[2024-11-03 23:33] LABS: ANION GAP 14.5 MEQ/L (5-15); Calcium 8.6 mg/dL (8.4-10.2); Creatinine 1 0.71 mg/dL (0.52-1.04); EST GLOMERULAR FILTRATION RATE 112.9 ML/MIN; Potassium 3.5 mmol/L (3.5-5.1)
[2024-11-04] MEDS: Sodium Chloride 0.9% 1000 ML 1,000 ML IV STA (00:03)
[2024-11-04 00:12] VITALS: PULSE 79; RESP 16; O2SAT 99
--- NOTE | 2024-11-04 08:21 | XRAY ---
Indication: Pain and vomiting. Multiple contiguous axial images obtained through the abdomen and pelvis without contrast. Comparison: May 14, 2024 Lung bases clear again with incidental tiny left base calcified granuloma. Heart not enlarged. Stable small hiatal hernia. Noncontrasted stomach and bowel loops appear nonobstructed. There is now mild diffuse colonic fecal debris with rectal fecal impaction. Stable nonobstructing punctate calculi in each kidney and tiny splenic calcified granulomas. Again appendectomy and cholecystectomy. No free fluid/air. Remaining liver, pancreas, spleen, adrenal glands, kidneys, ureters, bladder, uterus, and aorta are unremarkable for noncontrast exam. Osseous structures intact. No ventral or inguinal hernias. Impression: 1. New mild diffuse fecal stasis with rectal fecal impaction. 2. Chronic findings including small hiatal hernia, nonobstructing bilateral renal punctate calculi, and old granulomatous disease. 3. Remaining CT abdomen/pelvis without contrast exam is negative.
== END 2024-11-04 00:12 | disposition home or self-care (01) ==
LOC: ED 19:25
DX: B27.90 Infectious mononucleosis, unspecified without complication (principal); R11.2 Nausea with vomiting, unspecified; R10.9 Unspecified abdominal pain; E86.0 Dehydration
CPT/HCPCS: 0241U; 36415; 74176; 80048; 80053; 81001; 82150; 83690; 85025; 86308; 87077; 87086; 87186; 87651; 94760; 96374; 96375; 99284; J1171; J2405

== ENCOUNTER 2024-12-22 18:15 | Emergency (ER) | payer OTHER ==
--- NOTE | 2024-12-22 18:23 | ERPHSYRPT ---
- History of Present Illness Time Seen by Provider: 12/22/24 18:23 Source: patient Exam Limitations: no limitations Physician History: This is a 34-year-old white female patient who has had pain in the left posterior hip region for 3 to 4 days and worsened today. Patient was seen at urgent care and diagnosed with shingles. It is very painful and her primary care provider is not available. Therefore she came to emergency department to obtain a prescription for pain control. Patient has a prescription that was filled today for the antiviral she is to take. She has not taken the medication yet. She wants pain medication called into [facility] in [place]. Timing/Duration: day(s) (3 to 4 days), worse Method of Injury: other Quality: burning, sharp Severity of Pain-Max: moderate Severity of Pain-Current: moderate Modifying Factors: Improves With: nothing Associated Symptoms: denies symptoms Previous symptoms: no prior history, no recent treatment Allergies/Adverse Reactions: Penicillins Adverse Reaction (Mild, Verified 12/22/24 18:25) Rash pt states she is not had problems with antibitics related to pcn as an adult Home Medications: Omeprazole 20 mg PO DAILY PRN 11/04/20 [History] Amlodipine Besylate 10 mg PO DAILY 06/23/21 [History] Buspirone HCl 30 mg PO DAILY 10/19/23 [History] Hx Tetanus, Diphtheria Vaccination/Date Given: Yes Hx Influenza Vaccination/Date Given: Yes Hx Pneumococcal Vaccination/Date Given: No Travel Risk - International Travel Have you traveled outside of the country in past 3 weeks: No - Emerging Infectious Disease Are you exhibiting symptoms associated with any current EIDs: Yes Symptoms: Abdominal Pain, Vomitting - Review of Systems Constitutional: No Symptoms Eyes: No Symptoms Ears, Nose, & Throat: No Symptoms Respiratory: No Symptoms Cardiac: No Symptoms Abdominal/Gastrointestinal: No Symptoms Genitourinary Symptoms: No Symptoms Musculoskeletal: No Symptoms Skin: Rash (Blister, red rash that is tender without cellulitis) Neurological: No Symptoms Psychological: No Symptoms Endocrine: No Symptoms Hematologic/Lymphatic: No Symptoms Immunological/Allergic: No Symptoms All Other Systems: Reviewed and Negative - Past Medical History Pertinent Past Medical History: Yes Neurological History: No Pertinent History ENT History: No Pertinent History Cardiac History: Hypertension Respiratory History: No Pertinent History Endocrine Medical History: No Pertinent History Musculoskeletal History: No Pertinent History GI Medical History: Pancreatitis History: No Pertinent History Psycho-Social History: Anxiety Female Reproductive Disorders: Endometriosis Other Medical History: . - Past Surgical History Past Surgical History: Yes Neuro Surgical History: No Pertinent History Cardiac: No Pertinent History Respiratory: No Pertinent History Gastrointestinal: Appendectomy, Cholecystectomy Genitourinary: No Pertinent History Musculoskeletal: No Pertinent History Female Surgical History: No Pertinent History Other Surgical History: exploratory laparoscopy per Dr Hidalgo 2014- negative, wisdom teeth. Significant Family History: no pertinent family hx - Female History Hx Last Menstrual Period: 2 WKS AGO - Social History Smoking Status: Former smoker How long have you smoked: 10 yrs Exposure to second hand smoke: No Alcohol Use: Socially Drug Use: none Patient Lives Alone: No - Social Determinants of Health Will the patient participate in the screening: Yes Do you worry about a steady place to live?: No In the past 12 months,have you had to go without utilities?: No Transportation Issues: No Has anyone in your support network made you feel unsafe?: No Have you or anyone in your house had to go without enough: No - Nursing Vital Signs Nursing Vital Signs: Initial Vital Signs Temperature 98.4 F 12/22/24 18:26 Pulse Rate 114 H 12/22/24 18:26 Respiratory Rate 18 12/22/24 18:26 Blood Pressure 129/81 12/22/24 18:26 O2 Sat by Pulse Oximetry 100 12/22/24 18:26 Pain Scale Pain Intensity [Left Hip] 6 Pain Intensity 6 - Physical Exam General Appearance: no apparent distress, alert, anxiety Eye Exam: PERRL/EOMI, eyes nml inspection Ears, Nose, Throat Exam: normal ENT inspection, moist mucous membranes Neck Exam: normal inspection, non-tender, supple, full range of motion Respiratory Exam: airway intact, No chest tenderness, No respiratory distress Gastrointestinal Exam: No tenderness Pelvic Exam: not done Rectal Exam: not done Back Exam: other (Red rash with blistering present skin of posterior lateral left hip) Extremity Exam: normal range of motion, pelvis stable, other (See above back section) Neurologic Exam: alert, oriented x 3, cooperative, mosaicist II-XII nml as tested, nml cerebellar function, nml station & gait, sensation nml Skin Exam: rash (Red blistering skin rash posterior lateral left hip) Lymphatic Exam: No adenopathy SpO2 Interpretation: normal O2 Delivery: Room Air - Course Nursing assessment & vital signs reviewed: Yes - Progress Progress Note: 12/22/24 18:46 My medical decision making and the assignment of low complexity to this pat christopher's medical issue today is based on review of the patient's past medical history, review of the patient's medication list, reviewed patient drug allergy list, history present illness and physical findings on examination. The workup in this patient does not require any laboratory radiographic studies. Differential diagnosis includes but is not limited to skin rash, shingles Counseled pt/family regarding: diagnosis, need for follow-up Medical Desision Making - Risk of complications The pt has a mod risk of morbidity or mortality based on: Need for prescription drug management - Departure Departure Disposition: Home Clinical Impression: Shingles rash Condition: Stable Critical Care Time: No Referrals: TAMELA KHAN [Primary Care Provider] - Follow up/PCP as directed Additional Instructions: Keep the rash site clean daily with soap and water. If there are no contraindications, you may add ibuprofen for pain control. Take your antiviral medication as prescribed. Call your prescribing provider on 12/25/2024, to make arranges for follow-up appointment for further evaluation management Prescriptions: Oxycodone HCl/Acetaminophen [Percocet 5-325 mg Tablet] 1 each PO Q12H PRN PRN #6 tablet MDD 2 PRN Reason: Moderate To Severe Pain
[2024-12-22 18:27] VITALS: BP 129/81; PULSE 114; RESP 18; TEMP 98.4; O2SAT 100
== END 2024-12-22 18:59 | disposition home or self-care (01) ==
LOC: ED 18:15
DX: B02.9 Zoster without complications (principal); M25.552 Pain in left hip; I10 Essential (primary) hypertension; Z79.891 Long term (current) use of opiate analgesic; Z79.899 Other long term (current) drug therapy
CPT/HCPCS: 99283